=== PATIENT | female | born 1955 | race Caucasian/White ===

== ENCOUNTER 2016-07-12 15:16 | Emergency (ER) | payer OTHER ==
[2016-07-12 17:17] VITALS: TEMP 97.7
[2016-07-12] MEDS ORDERED: IPRATROPIUM-ALBUTEROL 3 ML NEB INHALATION STA (17:54)
--- NOTE | 2016-07-12 17:59 | ED ---
URI HPI - General Chief Complaint: Upper Respiratory Infection Stated Complaint: congestion Time Seen by Provider: 07/12/16 17:46 Source: patient, RN notes reviewed Mode of arrival: ambulatory - History of Present Illness Initial Comments: Patient is a 61-year-old female with a past history of COPD presents emergency room for reevaluation of cough and congestion. Patient states been having sinus congestion for the past 2 weeks. Patient states she went to her primary care provider about 2 weeks ago and was placed on "sinus medication". Patient states the medication did not help her. Patient states over the past few days she's been coughing up green phlegm. Patient states she's been having cold sweats and hot flashes. Patient denies nausea or vomiting. Patient denies headache or dizziness. Patient states she's having throat pain from coughing. Patient denies ear pain. Patient denies chest pain or increased shortness of breath. Patient does state that she smokes one pack a day. - Related Data Home Medications Medication Instructions Recorded Confirmed ALPRAZolam 1 mg PO QID PRN 08/09/14 01/17/16 Aspirin 81 mg PO DAILY 08/09/14 01/17/16 Carvedilol 6.25 mg PO BID 08/09/14 01/17/16 Clobetasol Propionate [Temovate] 1 applic TOPICAL DIRECTED PRN 08/09/1401/16 Ergocalciferol [Vitamin D2 50,000 unit PO QMONTH 08/09/14 01/17/16 (DRISDOL)] Fluticasone Propionate [Flovent 1 applic INHALATION DIRECTED PRN 08/09/1402/24 Hfa 220MCG] Ipratropium/Albuterol Sulfate 1 applic INHALATION DIRECTED PRN 08/09/1401/16 [Combivent Respimat Inhaler] Levothyroxine Sodium [Synthroid] 88 mcg PO DAILY 08/09/14 01/17/16 Losartan Potassium 25 mg PO QAM 08/09/14 01/17/16 Omeprazole 20 mg PO DAILY 08/09/14 01/17/16 PARoxetine [Paxil] 20 mg PO DAILY 08/09/14 01/17/16 Simvastatin 20 mg PO DAILY 08/09/14 01/17/16 Spironolactone [Aldactone] 25 mg PO BID 08/09/14 01/17/16 hydrOXYzine PAMOATE [Vistaril] 100 mg PO TID 08/09/14 01/17/16 Previous Rx's Medication Instructions Recorded Hydrocortisone Cream 1 applic TOPICAL TID #1 tube 02/10/15 [Hydrocortisone 2.5% Cream] Levofloxacin [Levaquin] 500 mg PO DAILY #9 tab 04/28/15 Clindamycin HCl [Cleocin] 300 mg PO Q6H #40 cap 01/17/16 Azithromycin [Zithromax Z-pack] 250 mg PO DIRECTED #6 tab 07/12/16 predniSONE 40 mg PO DAILY #5 tab 07/12/16 Allergies Allergy/AdvReac Type Severity Reaction Status Date / Time elastic Allergy Rash/Hives Uncoded 07/12/16 17:17 Review of Systems ROS Statement: Those systems with pertinent positive or pertinent negative responses have been documented in the HPI. ROS Other: All systems not noted in ROS Statement are negative. Past Medical History Past Medical History: COPD, GERD/Reflux, Rheumatoid Arthritis (RA), Sleep Apnea/ CPAP/BIPAP, Thyroid Disorder Additional Past Medical History / Comment(s): SEE DR HALLMAN'S H&P History of Any Multi-Drug Resistant Organisms: None Reported Past Surgical History: AICD, Heart Catheterization, Pacemaker Additional Past Surgical History / Comment(s): defibilator Past Anesthesia/Blood Transfusion Reactions: No Reported Reaction Type of Cardiac Device: AICD Device Placement Date:: UNKNOWN Past Psychological History: Anxiety, Depression Smoking Status: Current every day smoker Past Alcohol Use History: None Reported Additional Past Alcohol Use History / Comment(s): RECOVERING ALCOHOLIC, NOTHING SINCE 1989 Past Drug Use History: None Reported General Exam - General Exam Comments Initial Comments: Sitting in exam room, no acute distress. General appearance: alert, in no apparent distress Head exam: Present: atraumatic, normocephalic, normal inspection Eye exam: Present: normal appearance ENT exam: Present: normal exam Neck exam: Present: normal inspection Respiratory exam: Present: wheezes (Inspiratory and expiratory wheezing). Absent: respiratory distress Cardiovascular Exam: Present: regular rate, normal rhythm, normal heart sounds GI/Abdominal exam: Present: soft, normal bowel sounds. Absent: distended, tenderness, guarding, rebound, rigid Extremities exam: Present: normal inspection Back exam: Present: normal inspection Neurological exam: Present: alert, oriented X3, CN II-XII intact, normal gait Psychiatric exam: Present: normal affect, normal mood Skin exam: Present: warm, dry, intact, normal color. Absent: rash Course Vital Signs 07/12/16 07/12/16 07/12/16 17:13 18:09 18:18 Temperature 97.7 F Pulse Rate 63 63 63 Respiratory 20 18 Rate Blood Pressure 112/56 O2 Sat by Pulse 94 L 93 L Oximetry 07/12/16 07/12/16 18:28 18:32 Temperature Pulse Rate 60 Respiratory Rate Blood Pressure O2 Sat by Pulse 96 Oximetry Medical Decision Making - Medical Decision Making Patient is a 61-year-old female presents to the emergency room for evaluation of sinus congestion and cough. Chest x-ray shows no acute findings. Patient states she feels better after DuoNeb treatment. Patient was offered further workup and declined. Will place patient on antibiotics and prednisone and have her follow-up with her primary care provider. Advised patient to return for worsening symptoms. Patient states she understands everything that was discussed with her. Patient discussed with Dr. Loco. - Radiology Data Radiology results: report reviewed, image reviewed Disposition Clinical Impression: Sinusitis Disposition: HOME SELF-CARE Condition: Good Instructions: COPD (Chronic Obstructive Pulmonary Disease) (ED), How to Stop Smoking (ED) Additional Instructions: Take medications as directed. Please follow-up with primary care provider in 24 -48 hours for reevaluation. If any new symptom arises, symptoms worsen or fever develops return to ER as soon as possible. Prescriptions: Azithromycin [Zithromax Z-pack] 250 mg PO DIRECTED #6 tab predniSONE 40 mg PO DAILY #5 tab Referrals: Aniya Salamanca MD [Primary Care Provider] - 1-2 days Time of Disposition: 18:33
[2016-07-12 18:10] VITALS: RESP 18
--- NOTE | 2016-07-12 18:16 | XR ---
EXAMINATION TYPE: XR chest 2V DATE OF EXAM: 07/12/2016 6:04 PM COMPARISON: 04/28/2015 HISTORY: Cough and congestion TECHNIQUE: Frontal and lateral views of the chest are obtained. FINDINGS: Heart and mediastinum are normal. There is coarsening of interstitial markings in the lowe r lung silveira. There are no hilar masses. There is a left axillary pacemaker with the lead tips in th e right ventricle. There is no pleural effusion. IMPRESSION: Mild pulmonary fibrosis. No acute lung disease. No change.
[2016-07-12 18:55] VITALS: BP 108/67; PULSE 64
== END 2016-07-12 18:53 | disposition home or self-care (01) ==
LOC: EC 15:16
DX: J32.9 Chronic sinusitis, unspecified (principal); J44.9 Chronic obstructive pulmonary disease, unspecified; E07.9 Disorder of thyroid, unspecified; M06.9 Rheumatoid arthritis, unspecified; K21.9 Gastro-esophageal reflux disease without esophagitis; G47.30 Sleep apnea, unspecified; Z99.89 Dependence on other enabling machines and devices; F41.9 Anxiety disorder, unspecified; F32.9 Major depressive disorder, single episode, unspecified; Z79.82 Long term (current) use of aspirin; Z79.51 Long term (current) use of inhaled steroids; Z79.899 Other long term (current) drug therapy
CPT/HCPCS: 71020; 94640; 99283

== ENCOUNTER 2016-08-30 16:52 | Emergency (ER) | payer OTHER ==
[2016-08-30] MEDS ORDERED: methylPREDNISolone SOD SUCCI 125 MG/2 ML VIAL IM STA (17:37)
[2016-08-30] MEDS ORDERED: IPRATROPIUM-ALBUTEROL 3 ML NEB INHALATION STA (17:37)
--- NOTE | 2016-08-30 17:41 | ED ---
General Adult HPI - General Chief complaint: Upper Respiratory Infection Stated complaint: URI Time Seen by Provider: 08/30/16 17:31 Source: patient, RN notes reviewed Mode of arrival: ambulatory Limitations: no limitations - History of Present Illness Initial comments: Patient 61-year-old female with significant past medical history for COPD, who presents emergency room today with chief complaint of cough congestion over the last 10 days. Patient states she positive sputum production it's been green in color. Does admit that she was seen and treated with Z-Abdirashid previously. She states no improvement. Patient does admit that she's been using breathing treatments at home with some relief the symptoms but then increases shortly thereafter. Patient denies any other complaints or associated symptoms currently. Patient denies any recent fever, chills, shortness of breath, chest pain, back pain, abdominal pain, nausea or vomiting, numbness or tingling, dysuria or hematuria, constipation or diarrhea, headaches or visual changes, or any other complaints. - Related Data Home Medications Medication Instructions Recorded Confirmed ALPRAZolam 1 mg PO QID PRN 08/09/14 01/17/16 Aspirin 81 mg PO DAILY 08/09/14 01/17/16 Carvedilol 6.25 mg PO BID 08/09/14 01/17/16 Clobetasol Propionate [Temovate] 1 applic TOPICAL DIRECTED PRN 08/09/1401/16 Ergocalciferol [Vitamin D2 50,000 unit PO QMONTH 08/09/14 01/17/16 (DRISDOL)] Fluticasone Propionate [Flovent 1 applic INHALATION DIRECTED PRN 08/09/1402/24 Hfa 220MCG] Ipratropium/Albuterol Sulfate 1 applic INHALATION DIRECTED PRN 08/09/1401/16 [Combivent Respimat Inhaler] Levothyroxine Sodium [Synthroid] 88 mcg PO DAILY 08/09/14 01/17/16 Losartan Potassium 25 mg PO QAM 08/09/14 01/17/16 Omeprazole 20 mg PO DAILY 08/09/14 01/17/16 PARoxetine [Paxil] 20 mg PO DAILY 08/09/14 01/17/16 Simvastatin 20 mg PO DAILY 08/09/14 01/17/16 Spironolactone [Aldactone] 25 mg PO BID 08/09/14 01/17/16 hydrOXYzine PAMOATE [Vistaril] 100 mg PO TID 08/09/14 01/17/16 Previous Rx's Medication Instructions Recorded Hydrocortisone Cream 1 applic TOPICAL TID #1 tube 02/10/15 [Hydrocortisone 2.5% Cream] Levofloxacin [Levaquin] 500 mg PO DAILY #9 tab 04/28/15 Clindamycin HCl [Cleocin] 300 mg PO Q6H #40 cap 01/17/16 Azithromycin [Zithromax Z-pack] 250 mg PO DIRECTED #6 tab 07/12/16 predniSONE 40 mg PO DAILY #5 tab 07/12/16 Levofloxacin [Levaquin] 500 mg PO DAILY 7 Days 08/30/16 predniSONE 60 mg PO DAILY 5 Days 08/30/16 Allergies Allergy/AdvReac Type Severity Reaction Status Date / Time elastic Allergy Rash/Hives Uncoded 08/30/16 17:22 Review of Systems ROS Statement: Those systems with pertinent positive or pertinent negative responses have been documented in the HPI. ROS Other: All systems not noted in ROS Statement are negative. Past Medical History Past Medical History: COPD, GERD/Reflux, Rheumatoid Arthritis (RA), Sleep Apnea/ CPAP/BIPAP, Thyroid Disorder Additional Past Medical History / Comment(s): SEE DR HALLMAN'S H&P History of Any Multi-Drug Resistant Organisms: None Reported Past Surgical History: AICD, Heart Catheterization, Pacemaker Additional Past Surgical History / Comment(s): defibilator Past Anesthesia/Blood Transfusion Reactions: No Reported Reaction Type of Cardiac Device: AICD Device Placement Date:: UNKNOWN Past Psychological History: Anxiety, Depression Smoking Status: Current every day smoker Past Alcohol Use History: None Reported Additional Past Alcohol Use History / Comment(s): RECOVERING ALCOHOLIC, NOTHING SINCE 1989 Past Drug Use History: None Reported General Exam - General Exam Comments Initial Comments: General: The patient is awake and alert, in no distress, and does not appear acutely ill. Eye: Pupils are equal, round and reactive to light, extra-ocular movements are intact. No nystagmus. There is normal conjunctiva bilaterally. No signs of icterus. Ears, nose, mouth and throat: There are moist mucous membranes and no oral lesions. Neck: The neck is supple, there is no tenderness or JVD. Cardiovascular: There is a regular rate and rhythm. No murmur, rub or gallop is appreciated. Respiratory: Bilateral expiratory wheeze. Diminished breath sounds. respirations are non-labored, breath sounds are equal. No stridor, rales, or rhonchi. Musculoskeletal: Normal ROM, no tenderness. Strength 5/5. Sensation intact. Pulses equal bilaterally 2+. Neurological: A&O x 3. CN II-XII intact, There are no obvious motor or sensory deficits. Coordination appears grossly intact. Speech is normal. Skin: Skin is warm and dry and no rashes or lesions are noted. Psychiatric: Cooperative, appropriate mood & affect, normal judgment. Limitations: no limitations Course Vital Signs 08/30/16 08/30/16 08/30/16 17:19 17:43 17:50 Temperature 97.2 F L Pulse Rate 65 65 68 Respiratory 20 Rate Blood Pressure 116/76 O2 Sat by Pulse 94 L Oximetry Medical Decision Making - Medical Decision Making Case discussed in detail with attending physician Dr. Loco. Patient reexamined at this time shows no signs of distress. Does not that she feels better after breathing treatments. Lung sounds are clear bilaterally. X-ray reviewed shows no sign of pneumonia. Show possible CHF. Patient even dose Lasix to 40 mg in the emergency room. 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 Advised return to emergency room if any symptoms increase or worsen or for any other concerns. Patient states understanding and is in agreement. Disposition Clinical Impression: Acute bronchitis Disposition: HOME SELF-CARE Condition: Good Instructions: Upper Respiratory Infection (ED) Additional Instructions: Please use medication as discussed. Please follow-up with family doctor in the next 2 days of symptoms have not improved. Please return to emergency room if the symptoms increase or worsen or for any other concerns. Prescriptions: Levofloxacin [Levaquin] 500 mg PO DAILY 7 Days predniSONE 60 mg PO DAILY 5 Days Time of Disposition: 18:30
--- NOTE | 2016-08-30 18:17 | XR ---
EXAMINATION TYPE: XR chest 2V DATE OF EXAM: 08/30/2016 6:12 PM COMPARISON: Chest x-ray July 12, 2016. HISTORY: Productive cough and congestion for 10 days. TECHNIQUE: Frontal and lateral views of the chest are obtained. FINDINGS: The cardiac silhouette size is mildly enlarged with multilead pacemaker/AICD redemonstrate d. There is mild central vascular congestion. Tiny bilateral pleural effusions are seen with blunting of posterior costophrenic angles. No significant change from prior study. The osseous structures are demineralized. IMPRESSION: Consider CHF exacerbation as there is cardiomegaly with tiny bilateral pleural effusions and mild central vascular congestion felt present. Clinical correlation advised.
[2016-08-30] MEDS ORDERED: FUROSEMIDE 40 MG TAB PO STA (18:27)
[2016-08-30 18:58] VITALS: BP 115/71; PULSE 82; RESP 18; TEMP 97.8
== END 2016-08-30 18:58 | disposition home or self-care (01) ==
LOC: EC 16:52
DX: J44.0 Chronic obstructive pulmonary disease with (acute) lower respiratory infection (principal); K21.9 Gastro-esophageal reflux disease without esophagitis; J90 Pleural effusion, not elsewhere classified; I51.7 Cardiomegaly; G47.30 Sleep apnea, unspecified; E07.9 Disorder of thyroid, unspecified; F41.9 Anxiety disorder, unspecified; F32.9 Major depressive disorder, single episode, unspecified; F17.200 Nicotine dependence, unspecified, uncomplicated; Z95.810 Presence of automatic (implantable) cardiac defibrillator; Z79.52 Long term (current) use of systemic steroids; Z91.048 Other nonmedicinal substance allergy status; Z79.82 Long term (current) use of aspirin; Z79.899 Other long term (current) drug therapy
CPT/HCPCS: 94640; 71020; 99283; 96372; J2930

== ENCOUNTER 2016-09-29 12:59 | Day surgery (SDC) | payer OTHER ==
[2016-09-28 14:18] VITALS: BMI 39.4
[~2016-09-29 12:59] MED LIST: SODIUM CHLORIDE 0.9% 1,000 ML IV SCH
[2016-09-29 13:34] VITALS: TEMP 98.9
[2016-09-29 14:06] LABS: Anion Gap 9 mmol/L; Blood Urea Nitrogen 12 mg/dL (7-17); Calcium 9.1 mg/dL (8.4-10.2); Carbon Dioxide 31 mmol/L (22-30); Chloride 99 mmol/L (98-107); Glucose 99 mg/dL (74-99); Non-African American GFR(MDRD) 57 (>60 ml/min/1.73 sqM); Potassium 4.4 mmol/L (3.5-5.1); Sodium 139 mmol/L (137-145)
[2016-09-29] MEDS ORDERED: PROPOFOL 10 MG/ML 20 ML VIAL IV ONE (14:43)
[2016-09-29 16:47] VITALS: RESP 16
[2016-09-29 16:49] VITALS: BP 110/64; PULSE 62
--- NOTE | 2016-09-29 20:34 | CE ---
DATE OF SERVICE: 09/29/2016 Haylie Borrero is a 61-year-old female with nonischemic cardiomyopathy with severe heart failure, status post biventricular ICD implantation. She has a [employer] device [employer] CRTD [id number]. P-wave of 5.4 mV, pacing impedance 682 ohms. Pacing threshold 1.1 v at 0.8 ms. The R waves were 18 mV, pacing impedance 993 ohms, pacing threshold 0.5 v at 0.5 ms. The pacing threshold in the LV was 0.5 v at 0.5 ms, pacing impedance of 567 ohms, shock impedance 100 ohms. Shock and T-wave protocol was used to induce ventricular fibrillation. This was adequately and appropriately detected at least sensitivity and successfully internally defibrillated with a 17 joule shock. Last time for DFT was 21 joules. The charge time was 3.1 seconds. Shock impedance 79 ohms. This was with initial polarity. The device was then reprogrammed to the MADIT-RIT programming. The LV offset was reprogrammed to -40 ms. AV delay was maintained at 120 ms. First cardioversion at 21 joules, first defibrillation at 31 joules. Appropriate antitachycardia pacing using cardioversion and defibrillation were programmed. RESULT: 1. Successful DFT at or below 17 joules. 2. Biventricular ICD interrogated and reprogrammed.
== END 2016-09-29 16:30 | disposition home or self-care (01) ==
LOC: CATHEP 12:59
PROVIDERS: ATTEND Internal Medicine Clinical Cardiac Electrophysiology
DX: I42.0 Dilated cardiomyopathy (principal); I44.7 Left bundle-branch block, unspecified; Z45.02 Encounter for adjustment and management of automatic implantable cardiac defibrillator; I50.22 Chronic systolic (congestive) heart failure; I10 Essential (primary) hypertension; G47.33 Obstructive sleep apnea (adult) (pediatric); F17.210 Nicotine dependence, cigarettes, uncomplicated; E78.5 Hyperlipidemia, unspecified; E07.9 Disorder of thyroid, unspecified; K21.9 Gastro-esophageal reflux disease without esophagitis; F41.9 Anxiety disorder, unspecified; F32.9 Major depressive disorder, single episode, unspecified; Z79.82 Long term (current) use of aspirin; Z79.51 Long term (current) use of inhaled steroids; Z79.899 Other long term (current) drug therapy
CPT/HCPCS: 93642; 80048; J2704

== ENCOUNTER 2016-11-23 10:08 | Emergency (ER) | payer OTHER ==
[2016-11-23 10:21] VITALS: PULSE 60
--- NOTE | 2016-11-23 10:46 | ED ---
Upper Extremity HPI - General Chief Complaint: Extremity Injury, Upper Stated Complaint: finger pain Time Seen by Provider: 11/23/16 10:28 Source: patient, RN notes reviewed Mode of arrival: ambulatory - History of Present Illness Initial Comments: 61-year-old female presents to the emergency department with a chief complaint of right thumb pain. Patient states she got her nail gun and she felt a little pus pocket afterwards. Patient states that he cut it with a razor yesterday and drained however she still having some pain and swelling to the area. Patient states that she was concerned so she thought that they should be evaluated. There is been no other symptoms with this. She does have full range of motion. There is been no fever or chills. She states it is stabbing type pain that is constant so she was concerned.Patient denies any recent fever , chills, shortness of breath, chest pain, back pain, abdominal pain, nausea vomiting, numbness or tingling, dysuria or hematuria, constipation or diarrhea, headaches or visual changes, or any other current symptoms. - Related Data Home Medications Medication Instructions Recorded Confirmed ALPRAZolam 1 mg PO QID PRN 08/09/14 09/28/16 Carvedilol 6.25 mg PO BID 08/09/14 09/28/16 Losartan Potassium 25 mg PO QAM 08/09/14 09/28/16 Omeprazole 20 mg PO BID PRN 08/09/14 09/29/16 Simvastatin 20 mg PO HS 08/09/14 09/29/16 Spironolactone [Aldactone] 25 mg PO BID 08/09/14 09/28/16 hydrOXYzine PAMOATE [Vistaril] 100 mg PO TID PRN 08/09/14 09/29/16 Aspirin 325 mg PO DAILY 09/01/16 09/28/16 Levothyroxine Sodium [Synthroid] 100 mcg PO DAILY 09/01/16 09/28/16 Fluticasone/Salmeterol [Advair 1 inhalation PO BID 09/28/16 09/28/16 250-50 Diskus] Furosemide [Lasix] 40 mg PO DAILY 09/28/16 09/28/16 Tiotropium [place] [Spiriva] 1 cap INHALATION DAILY 09/28/16 09/28/16 traMADol HCL [Ultram] 50 mg PO Q8HR PRN 09/28/16 09/29/16 Previous Rx's Medication Instructions Recorded Cephalexin [Keflex] 500 mg PO Q6HR #40 cap 11/23/16 Allergies Allergy/AdvReac Type Severity Reaction Status Date / Time elastic Allergy Rash/Hives Uncoded 11/23/16 10:21 Review of Systems ROS Statement: Those systems with pertinent positive or pertinent negative responses have been documented in the HPI. ROS Other: All systems not noted in ROS Statement are negative. Past Medical History Past Medical History: COPD, GERD/Reflux, Rheumatoid Arthritis (RA), Sleep Apnea/ CPAP/BIPAP, Thyroid Disorder Additional Past Medical History / Comment(s): USES C-PAP MACHINE, STATES HX OF STOMACH ULCERS, SEE DR HALLMAN'S H&P History of Any Multi-Drug Resistant Organisms: None Reported Past Surgical History: AICD, Heart Catheterization, Pacemaker Additional Past Surgical History / Comment(s): defibilator Past Anesthesia/Blood Transfusion Reactions: No Reported Reaction, Motion Sickness Type of Cardiac Device: AICD Device Placement Date:: UNKNOWN Past Psychological History: Anxiety, Depression Smoking Status: Current every day smoker Past Alcohol Use History: None Reported Additional Past Alcohol Use History / Comment(s): STARTED SMOKING AGE 15. , SMOKES < 1PPD. RECOVERING ALCOHOLIC, NOTHING SINCE 1989 Past Drug Use History: None Reported - Past Family History Mother Family Medical History: No Reported History General Exam - General Exam Comments Initial Comments: General: The patient is awake and alert, in no distress, and does not appear acutely ill. Neck: The neck is supple, there is no tenderness. Cardiovascular: There is a regular rate and rhythm. No murmur, rub or gallop is appreciated. Respiratory: Lungs are clear to auscultation, respirations are non-labored, breath sounds are equal. No wheezes, stridor, rales, or rhonchi. Musculoskeletal: Sensation intact with 2+ pulses. Right upper extremity. Full range motion of the right hand and the right thumb with an area of some swelling around the base of the thumb. There is appear to be a small laceration that was self inflicted. No sign of purulent drainage. Neurological: CN II-XII intact, There are no obvious motor or sensory deficits. Coordination appears grossly intact. Speech is normal. Skin: Skin is warm and dry and no rashes or lesions are noted. Psychiatric: Normal mood and affect. Course Vital Signs 11/23/16 10:17 Temperature 97.1 F L Pulse Rate 60 Respiratory 18 Rate Blood Pressure 92/53 O2 Sat by Pulse 96 Oximetry Medical Decision Making - Medical Decision Making 61 yo female presents to the Er with cc of paronchyia. At this time patient did undergo drainage. There is good be associated cellulitis. We will start patient on Keflex. We did discuss follow-up and return parameters. We discussed all the patient's questions. She states she understood and is given the plan. She will be discharged. Disposition Clinical Impression: Paronychia of right thumb, Cellulitis of right thumb Disposition: HOME SELF-CARE Condition: Stable Instructions: Paronychia (ED) Additional Instructions: Please use medication as discussed. Please follow up with family doctor if symptoms have not improved over the next two days. Please return to the emergency room if your symptoms increase or worsen or for any other concerns. Prescriptions: Cephalexin [Keflex] 500 mg PO Q6HR #40 cap Referrals: Aniya Salamanca MD [Primary Care Provider] - 1-2 days Time of Disposition: 10:44
[2016-11-23 11:02] VITALS: BP 105/61; RESP 16; TEMP 97.4
== END 2016-11-23 11:13 | disposition home or self-care (01) ==
LOC: EC 10:08
DX: L03.011 Cellulitis of right finger (principal); J44.9 Chronic obstructive pulmonary disease, unspecified; K21.9 Gastro-esophageal reflux disease without esophagitis; E07.9 Disorder of thyroid, unspecified; F32.9 Major depressive disorder, single episode, unspecified; F41.9 Anxiety disorder, unspecified; F17.200 Nicotine dependence, unspecified, uncomplicated; Z79.82 Long term (current) use of aspirin; Z79.51 Long term (current) use of inhaled steroids; Z79.899 Other long term (current) drug therapy; Z91.09 Other allergy status, other than to drugs and biological substances
CPT/HCPCS: 99283

== ENCOUNTER 2016-11-29 18:59 | Emergency (ER) | payer OTHER ==
[2016-11-29 19:12] VITALS: BP 113/59; PULSE 68; RESP 18; TEMP 96.4
--- NOTE | 2016-11-29 19:51 | ED ---
Skin/Abscess/FB HPI - General Chief complaint: Skin/Abscess/Foreign Body Stated complaint: finger infection Time Seen by Provider: 11/29/16 19:25 Source: patient, RN notes reviewed Mode of arrival: EMS Limitations: no limitations - History of Present Illness Initial comments: Patient is a 61-year-old female presents to the emergency room for evaluation of right thumb infection. Patient states she was here about 6 days ago for thumb infection. Patient states that her took a razor and drained her finger for her. Patient states she came here she was placed on Keflex. Patient states she feels like the infection is not subsiding. Patient states she feels like it still needs to be drained still. Patient states she's been taking her antibiotics as directed. Patient denies numbness or tingling in her finger. Patient denies any drainage from the area. Patient denies any increase in swelling. Patient denies fevers or chills. - Related Data Home Medications Medication Instructions Recorded Confirmed ALPRAZolam 1 mg PO QID PRN 08/09/14 11/23/16 Carvedilol 6.25 mg PO BID 08/09/14 11/23/16 Losartan Potassium 25 mg PO QAM 08/09/14 11/23/16 Omeprazole 20 mg PO BID PRN 08/09/14 11/23/16 Simvastatin 20 mg PO HS 08/09/14 11/23/16 Spironolactone [Aldactone] 25 mg PO BID 08/09/14 11/23/16 hydrOXYzine PAMOATE [Vistaril] 100 mg PO TID PRN 08/09/14 11/23/16 Aspirin 325 mg PO DAILY 09/01/16 11/23/16 Levothyroxine Sodium [Synthroid] 100 mcg PO DAILY 09/01/16 11/23/16 Fluticasone/Salmeterol [Advair 1 inhalation PO RT-BID 09/28/16 11/23/16 250-50 Diskus] Furosemide [Lasix] 40 mg PO DAILY 09/28/16 11/23/16 Tiotropium [place] [Spiriva] 1 cap INHALATION RT-DAILY 09/28/16 11/23/16 traMADol HCL [Ultram] 50 mg PO Q8HR PRN 09/28/16 11/23/16 Previous Rx's Medication Instructions Recorded Cephalexin [Keflex] 500 mg PO Q6HR #40 cap 11/23/16 Cephalexin [Keflex] 500 mg PO Q6HR 5 Days 11/29/16 Allergies Allergy/AdvReac Type Severity Reaction Status Date / Time elastic Allergy Rash/Hives Uncoded 11/29/16 19:12 Review of Systems ROS Statement: Those systems with pertinent positive or pertinent negative responses have been documented in the HPI. ROS Other: All systems not noted in ROS Statement are negative. Past Medical History Past Medical History: COPD, GERD/Reflux, Rheumatoid Arthritis (RA), Sleep Apnea/ CPAP/BIPAP, Thyroid Disorder Additional Past Medical History / Comment(s): USES C-PAP MACHINE, STATES HX OF STOMACH ULCERS, SEE DR HALLMAN'S H&P History of Any Multi-Drug Resistant Organisms: None Reported Past Surgical History: AICD, Heart Catheterization, Pacemaker Additional Past Surgical History / Comment(s): defibilator Past Anesthesia/Blood Transfusion Reactions: No Reported Reaction, Motion Sickness Type of Cardiac Device: AICD Device Placement Date:: UNKNOWN Past Psychological History: Anxiety, Depression Smoking Status: Current every day smoker Past Alcohol Use History: None Reported Additional Past Alcohol Use History / Comment(s): STARTED SMOKING AGE 15. , SMOKES < 1PPD. RECOVERING ALCOHOLIC, NOTHING SINCE 1989 Past Drug Use History: None Reported - Past Family History Mother Family Medical History: No Reported History General Exam - General Exam Comments Initial Comments: sitting in exam room, no acute distress. Limitations: no limitations General appearance: alert, in no apparent distress Head exam: Present: atraumatic, normocephalic, normal inspection Eye exam: Present: normal appearance ENT exam: Present: normal exam Neck exam: Present: normal inspection Respiratory exam: Absent: respiratory distress Right Hand Wrist exam: Present: full ROM, tenderness (erythema around the nail bed site. No fluctuance noted no drainage noted.) Vascular: Present: normal capillary refill (capillary refill less than 2 seconds ), radial pulse (2+), ulnar pulse (2+) Back exam: Present: normal inspection Neurological exam: Present: alert, oriented X3, CN II-XII intact, normal gait Psychiatric exam: Present: normal affect, normal mood Skin exam: Present: warm, dry, intact, normal color. Absent: rash Course Vital Signs 11/29/16 19:09 Temperature 96.4 F L Pulse Rate 68 Respiratory 18 Rate Blood Pressure 113/59 O2 Sat by Pulse 99 Oximetry Procedures - Nerve Block Consent Obtained: verbal consent Local Anesthetic Used: Lidocaine 1% Amount of anesthesia used: 4 Side: right Nerve Blocks: digital (thumb) Procedure Successful: Yes Complications: none Patient Tolerated Procedure: well, no complications Medical Decision Making - Medical Decision Making Patient is a 61-year-old female since he went to her for evaluation of right thumb swelling and pain. No significant swelling or fluctuant noticed. Patient 's right thumb was digitally blocked. 11-blade was used to lift up the nailbed. No pus or drainage noted. Will extend patient's Keflex to another 5 days. Advised patient to keep area clean and to wash it with antibacterial soap and water daily. Patient states she understands everything that was discussed with her. Return parameters discussed. Case discussed with Dr. Loco , who also evaluated patient. Disposition Clinical Impression: Cellulitis of right thumb Disposition: HOME SELF-CARE Condition: Good Instructions: Cellulitis (ED) Additional Instructions: Continue taking Keflex as directed. Keep area clean with antibacterial soap and water. Please follow up with primary care provider in 1-2 days. If any new symptom arises or symptoms worsen, return to ER as soon as possible. Prescriptions: Cephalexin [Keflex] 500 mg PO Q6HR 5 Days Referrals: Aniya Salamanca MD [Primary Care Provider] - 1-2 days Time of Disposition: 20:12
== END 2016-11-29 20:22 | disposition home or self-care (01) ==
LOC: EC 18:59
DX: L03.011 Cellulitis of right finger (principal); K21.9 Gastro-esophageal reflux disease without esophagitis; E07.9 Disorder of thyroid, unspecified; J44.9 Chronic obstructive pulmonary disease, unspecified; M06.9 Rheumatoid arthritis, unspecified; F17.200 Nicotine dependence, unspecified, uncomplicated; Z91.048 Other nonmedicinal substance allergy status; Z79.82 Long term (current) use of aspirin; Z79.51 Long term (current) use of inhaled steroids; Z79.899 Other long term (current) drug therapy
CPT/HCPCS: 64450; 99283

== ENCOUNTER 2017-10-23 18:07 | Emergency (ER) | payer OTHER ==
[2017-10-23 18:20] VITALS: RESP 18; TEMP 98.6
[2017-10-23] MEDS ORDERED: Acetaminophen-Codeine 300-30mg TAB PO STA (18:38)
--- NOTE | 2017-10-23 18:42 | ED ---
General Adult HPI - General Chief complaint: Recheck/Abnormal Lab/Rx Stated complaint: pacemaker check Time Seen by Provider: 10/23/17 18:23 Source: patient Mode of arrival: ambulatory Limitations: no limitations - History of Present Illness Initial comments: Patient is a 62-year-old female presenting to the emergency department for evaluation. She states that she was at her doctor's office, when she bumped into an object causing her left elbow to strike her left breast. She says that since that time, she has been having pain in the breast which is worse with movement. She denies any shortness of breath but states that she is concerned about the AICD becoming dislodged and therefore wanted to be evaluated. She denies any palpitations as well. - Related Data Home Medications Medication Instructions Recorded Confirmed ALPRAZolam 1 mg PO QID PRN 08/09/14 11/23/16 Carvedilol 6.25 mg PO BID 08/09/14 11/23/16 Losartan Potassium 25 mg PO QAM 08/09/14 11/23/16 Omeprazole 20 mg PO BID PRN 08/09/14 11/23/16 Simvastatin 20 mg PO HS 08/09/14 11/23/16 Spironolactone [Aldactone] 25 mg PO BID 08/09/14 11/23/16 hydrOXYzine PAMOATE [Vistaril] 100 mg PO TID PRN 08/09/14 11/23/16 Aspirin 325 mg PO DAILY 09/01/16 11/23/16 Levothyroxine Sodium [Synthroid] 100 mcg PO DAILY 09/01/16 11/23/16 Fluticasone/Salmeterol [Advair 1 inhalation PO RT-BID 09/28/16 11/23/16 250-50 Diskus] Furosemide [Lasix] 40 mg PO DAILY 09/28/16 11/23/16 Tiotropium [place] [Spiriva] 1 cap INHALATION RT-DAILY 09/28/16 11/23/16 traMADol HCL [Ultram] 50 mg PO Q8HR PRN 09/28/16 11/23/16 Previous Rx's Medication Instructions Recorded Cephalexin [Keflex] 500 mg PO Q6HR #40 cap 11/23/16 Cephalexin [Keflex] 500 mg PO Q6HR 5 Days cap 11/29/16 Allergies Allergy/AdvReac Type Severity Reaction Status Date / Time elastic Allergy Rash/Hives Uncoded 10/23/17 18:20 Review of Systems ROS Statement: Those systems with pertinent positive or pertinent negative responses have been documented in the HPI. Constitutional: Negative for chills, fatigue and fever. HENT: Negative for congestion. Respiratory: Negative for chest tightness, shortness of breath and wheezing. Cardiovascular: Negative for chest pain and palpitations. Gastrointestinal: Negative for abdominal pain. Negative for abdominal distention , diarrhea, nausea and vomiting. Genitourinary: Negative for dysuria. Musculoskeletal: Negative for back pain, neck pain and neck stiffness. Positive for left breast pain Skin: Negative for color change. Neurological: Negative for dizziness, speech difficulty, weakness and light- headedness. Psychiatric/Behavioral: Negative for agitation and confusion. The patient is not nervous/anxious. ROS Other: All systems not noted in ROS Statement are negative. Past Medical History Past Medical History: COPD, GERD/Reflux, Rheumatoid Arthritis (RA), Sleep Apnea/ CPAP/BIPAP, Thyroid Disorder Additional Past Medical History / Comment(s): USES C-PAP MACHINE, STATES HX OF STOMACH ULCERS, SEE DR HALLMAN'S H&P History of Any Multi-Drug Resistant Organisms: None Reported Past Surgical History: AICD, Heart Catheterization, Pacemaker Additional Past Surgical History / Comment(s): defibilator Past Anesthesia/Blood Transfusion Reactions: No Reported Reaction, Motion Sickness Type of Cardiac Device: AICD Device Placement Date:: UNKNOWN Past Psychological History: Anxiety, Depression Smoking Status: Current every day smoker Past Alcohol Use History: None Reported Past Drug Use History: None Reported - Past Family History Mother Family Medical History: No Reported History General Exam - General Exam Comments Initial Comments: Physical Exam Constitutional: Pt is oriented to person, place, and time. Pt appears well- developed and well-nourished. No distress. HENT: Head: Normocephalic and atraumatic. Eyes: EOM are normal. Neck: Normal range of motion. Neck supple. Cardiovascular: Normal rate, regular rhythm, S1 normal, S2 normal and normal heart sounds. Exam reveals no gallop and no friction rub. No murmur heard. Pulmonary/Chest: Effort normal and breath sounds normal. No tachypnea and no bradypnea. No respiratory distress. No wheezes or rales noted. Abdominal: Soft. Bowel sounds are normal. Pt exhibits no shifting dullness, no distension, no pulsatile liver, no fluid wave, no abdominal bruit and no ascites. There is no tenderness. There is no rigidity, no rebound, no guarding, no tenderness at McBurney's point and negative Leggett's sign. Musculoskeletal: Normal range of motion. Mild tenderness on the left lateral aspect of the chest at ribs 10 through 12. AICD site noted to be normal with incision well-healed Neurological: Pt is alert and oriented to person, place, and time. No cranial nerve deficit. Skin: Skin is warm and dry. No rash noted. Pt is not diaphoretic. No erythema. No pallor. Psychiatric: Pt has a normal mood and affect. Pt behavior is normal. Thought content normal. Limitations: no limitations Course Vital Signs 10/23/17 18:17 Temperature 98.6 F Pulse Rate 65 Respiratory 18 Rate Blood Pressure 122/58 O2 Sat by Pulse 96 Oximetry EKG Findings - EKG Comments: EKG Findings:: EKG shows atrial sensed ventricularly paced rhythm with a rate of 58 bpm. OK interval 90, QRS duration 136, QTC 494 Medical Decision Making - Medical Decision Making EKG showed atrial sensed, ventricular paced rhythm with no significant abnormal findings. Also, based on physical exam, it is felt that the symptoms the patient is experiencing is from a musculoskeletal strain as the pain is much lower and laterally compared to where the AICD is place. Chest x-ray was read as potential dislodgment of the AICD. However, after discussion with radiologist, this is based on chest x-ray on 2012 and not the latest one performed August 2016. Therefore is felt that the patient is safe to be discharged and should follow up with cardiology or return to emergency department if she felt there is more concerning symptoms. The patient and family member are agreeable to plan. Disposition Clinical Impression: Rib pain on left side Disposition: HOME SELF-CARE Condition: Good Instructions: Costochondritis (ED) Referrals: Aniya Salamanca MD [Primary Care Provider] - 1-2 days Time of Disposition: 19:36
--- NOTE | 2017-10-23 19:06 | XR ---
EXAMINATION TYPE: XR chest 2V DATE OF EXAM: 10/23/2017 COMPARISON: Prior chest x-ray 08/30/2016 and chest x-ray 10/07/2012 HISTORY: Left-sided chest pain, history of trauma TECHNIQUE: Frontal and lateral views of the chest are obtained. FINDINGS: Defibrillator leads are stable, twisted appearance is noted of the leads proximally. No ev ident pneumothorax or pleural effusion. Cardiac mediastinal silhouette, pulmonary vascularity and hil a are stable. No evident airspace disease. Prominent lung volumes suggests possible underlying COPD. Some minimal strand-like densities at the lung bases may reflect scarring, atelectasis. IMPRESSION: Findings are similar to prior exam. Correlate for COPD. Correlate for possible twisting of the generator in the subcutaneous pocket compared to previous exam 10/07/2012
[2017-10-23 19:56] VITALS: BP 120/66; PULSE 60
== END 2017-10-23 20:00 | disposition home or self-care (01) ==
LOC: EC 18:07
DX: R07.81 Pleurodynia (principal); J44.9 Chronic obstructive pulmonary disease, unspecified; E07.9 Disorder of thyroid, unspecified; F17.200 Nicotine dependence, unspecified, uncomplicated; G47.30 Sleep apnea, unspecified; Z95.0 Presence of cardiac pacemaker; Z95.818 Presence of other cardiac implants and grafts; Z79.82 Long term (current) use of aspirin; Z79.51 Long term (current) use of inhaled steroids; Z79.899 Other long term (current) drug therapy; Z91.048 Other nonmedicinal substance allergy status
CPT/HCPCS: 71046; 93005; 99284

== ENCOUNTER 2017-11-18 18:38 | Emergency (ER) | payer OTHER ==
[2017-11-18 18:45] VITALS: BP 131/60; PULSE 67; RESP 20; TEMP 98.1
--- NOTE | 2017-11-18 20:16 | ED ---
General Adult HPI - General Chief complaint: Burn/Smoke Inhalation Stated complaint: LEFT HAND BURN Time Seen by Provider: 11/18/17 18:57 Source: patient, RN notes reviewed Mode of arrival: ambulatory Limitations: no limitations - History of Present Illness Initial comments: 62-year-old female presents to the emergency department for a chief complaint of left hand burn 2 hours ago. Patient burned her hand with boiling water while making tea. Patient states she has kept ice on it. She states it is painful to touch. Patient states she feels like it is blistering. Patient denies matt to the dorsal aspect of the hand. Patient denies matt anywhere else. Patient had no other injuries. Patient has no other complaints at this time including shortness of breath, chest pain, abdominal pain, nausea or vomiting, headache, or visual changes. - Related Data Home Medications Medication Instructions Recorded Confirmed ALPRAZolam 1 mg PO QID PRN 08/09/14 11/23/16 Carvedilol 6.25 mg PO BID 08/09/14 11/23/16 Losartan Potassium 25 mg PO QAM 08/09/14 11/23/16 Omeprazole 20 mg PO BID PRN 08/09/14 11/23/16 Simvastatin 20 mg PO HS 08/09/14 11/23/16 Spironolactone [Aldactone] 25 mg PO BID 08/09/14 11/23/16 hydrOXYzine PAMOATE [Vistaril] 100 mg PO TID PRN 08/09/14 11/23/16 Aspirin 325 mg PO DAILY 09/01/16 11/23/16 Levothyroxine Sodium [Synthroid] 100 mcg PO DAILY 09/01/16 11/23/16 Fluticasone/Salmeterol [Advair 1 inhalation PO RT-BID 09/28/16 11/23/16 250-50 Diskus] Furosemide [Lasix] 40 mg PO DAILY 09/28/16 11/23/16 Tiotropium [place] [Spiriva] 1 cap INHALATION RT-DAILY 09/28/16 11/23/16 traMADol HCL [Ultram] 50 mg PO Q8HR PRN 09/28/16 11/23/16 Previous Rx's Medication Instructions Recorded Cephalexin [Keflex] 500 mg PO Q6HR #40 cap 11/23/16 Cephalexin [Keflex] 500 mg PO Q6HR 5 Days cap 11/29/16 Bacitracin Oint 1 applic TOPICAL DAILY #1 bottle 11/18/17 SILVER sulfADIAZINE CREAM 1 applic TOPICAL DAILY #1 tube 11/18/17 [Silvadene Cream] Allergies Allergy/AdvReac Type Severity Reaction Status Date / Time elastic Allergy Rash/Hives Uncoded 11/18/17 18:44 Review of Systems ROS Statement: Those systems with pertinent positive or pertinent negative responses have been documented in the HPI. ROS Other: All systems not noted in ROS Statement are negative. Past Medical History Past Medical History: COPD, GERD/Reflux, Rheumatoid Arthritis (RA), Sleep Apnea/ CPAP/BIPAP, Thyroid Disorder Additional Past Medical History / Comment(s): USES C-PAP MACHINE, STATES HX OF STOMACH ULCERS, SEE DR HALLMAN'S H&P History of Any Multi-Drug Resistant Organisms: None Reported Past Surgical History: AICD, Heart Catheterization, Pacemaker Additional Past Surgical History / Comment(s): defibilator Past Anesthesia/Blood Transfusion Reactions: No Reported Reaction, Motion Sickness Type of Cardiac Device: AICD Device Placement Date:: UNKNOWN Past Psychological History: Anxiety, Depression Smoking Status: Current every day smoker Past Alcohol Use History: None Reported Past Drug Use History: None Reported - Past Family History Mother Family Medical History: No Reported History General Exam Limitations: no limitations General appearance: alert, in no apparent distress Head exam: Present: atraumatic, normocephalic, normal inspection Respiratory exam: Present: normal lung sounds bilaterally. Absent: respiratory distress, wheezes, rales, rhonchi, stridor Cardiovascular Exam: Present: regular rate, normal rhythm, normal heart sounds. Absent: systolic murmur, diastolic murmur, rubs, gallop, clicks Extremities exam: Present: full ROM (Full range of motion of the left hand including all digits of the left hand), tenderness (Patient has tenderness of the left hand), normal capillary refill (Refill less than 2 seconds in all digits of the left hand. Radial pulse 2+.), other (Superficial burn noted on the left palmar aspect of the hand. Burn is not circumferential. There is no blistering. Palmar aspect of hand is erythematous. ) Course Vital Signs 11/18/17 18:42 Temperature 98.1 F Pulse Rate 67 Respiratory 20 Rate Blood Pressure 131/60 O2 Sat by Pulse 98 Oximetry Medical Decision Making - Medical Decision Making 62-year-old female presents to the emergency determine for chief complaint of burn on the left hand. This happened about 2 hours ago with boiling water. Patient burned only the palmar aspect of her hand. The dorsal aspect is not injured. The burn is not circumferential. Patient's hand is erythematous and tender. No blisters noted. Patient will be given bacitracin during the day and is educated to wrap her hand during the day. At night she will apply Silvadene and keep it on wrapped. She was educated to clean the hand once a day as well. She will monitor for infection and return to the emergency Department if she notices any signs or worsening symptoms. She will follow up with primary care in 1-2 days. Disposition Clinical Impression: Burn Disposition: HOME SELF-CARE Condition: Good Instructions: Superficial Burn (ED) Additional Instructions: Apply bacitracin or antibiotic ointment and wrap the hand during the day. At night apply Silvadene and leave unwrapped. Clean the area once per day. Return to the emergency department if you notice any worsening symptoms or signs of infections. Otherwise follow-up with primary care in 1-2 days. Prescriptions: Bacitracin Oint 1 applic TOPICAL DAILY #1 bottle SILVER sulfADIAZINE CREAM [Silvadene Cream] 1 applic TOPICAL DAILY #1 tube Is patient prescribed a controlled substance at d/c from ED?: No Referrals: Aniya Salamanca MD [Primary Care Provider] - 1-2 days Time of Disposition: 20:11
== END 2017-11-18 20:23 | disposition home or self-care (01) ==
LOC: EC 18:38
DX: T23.052A Burn of unspecified degree of left palm, initial encounter (principal); J44.9 Chronic obstructive pulmonary disease, unspecified; K21.9 Gastro-esophageal reflux disease without esophagitis; G47.30 Sleep apnea, unspecified; Z99.89 Dependence on other enabling machines and devices; E07.9 Disorder of thyroid, unspecified; F32.9 Major depressive disorder, single episode, unspecified; F41.9 Anxiety disorder, unspecified; F17.200 Nicotine dependence, unspecified, uncomplicated; Z79.51 Long term (current) use of inhaled steroids; Z79.82 Long term (current) use of aspirin; Z79.899 Other long term (current) drug therapy; Z91.048 Other nonmedicinal substance allergy status; X12.XXXA Contact with other hot fluids, initial encounter
CPT/HCPCS: 99283

== ENCOUNTER 2017-11-27 11:21 | Emergency (ER) | payer OTHER ==
[2017-11-27 11:26] VITALS: BP 129/58; PULSE 60; RESP 20; TEMP 98.1
[2017-11-27] MEDS ORDERED: DIPH,PERTUS(ACELL)TETVAC-LF 0.5 ML VIAL IM ONE (11:33)
--- NOTE | 2017-11-27 11:37 | ED ---
General Adult HPI - General Chief complaint: Skin/Abscess/Foreign Body Stated complaint: Bee Sting Time Seen by Provider: 11/27/17 11:27 Source: patient, RN notes reviewed Mode of arrival: ambulatory Limitations: no limitations - History of Present Illness Initial comments: Patient is a pleasant 62-year-old female presenting to the emergency department following bee sting. Incident occurred yesterday. Patient has noticed some increased swelling and redness this morning. Patient states she was stung twice. Patient states discomfort increases with movement and touch. No history of problems with bee stings in the past. No other area of involvement or concern. - Related Data Home Medications Medication Instructions Recorded Confirmed ALPRAZolam 1 mg PO QID PRN 08/09/14 11/23/16 Carvedilol 6.25 mg PO BID 08/09/14 11/23/16 Losartan Potassium 25 mg PO QAM 08/09/14 11/23/16 Omeprazole 20 mg PO BID PRN 08/09/14 11/23/16 Simvastatin 20 mg PO HS 08/09/14 11/23/16 Spironolactone [Aldactone] 25 mg PO BID 08/09/14 11/23/16 hydrOXYzine PAMOATE [Vistaril] 100 mg PO TID PRN 08/09/14 11/23/16 Aspirin 325 mg PO DAILY 09/01/16 11/23/16 Levothyroxine Sodium [Synthroid] 100 mcg PO DAILY 09/01/16 11/23/16 Fluticasone/Salmeterol [Advair 1 inhalation PO RT-BID 09/28/16 11/23/16 250-50 Diskus] Furosemide [Lasix] 40 mg PO DAILY 09/28/16 11/23/16 Tiotropium [place] [Spiriva] 1 cap INHALATION RT-DAILY 09/28/16 11/23/16 traMADol HCL [Ultram] 50 mg PO Q8HR PRN 09/28/16 11/23/16 Previous Rx's Medication Instructions Recorded Cephalexin [Keflex] 500 mg PO Q6HR #40 cap 11/23/16 Cephalexin [Keflex] 500 mg PO Q6HR 5 Days cap 11/29/16 Bacitracin Oint 1 applic TOPICAL DAILY #1 bottle 11/18/17 SILVER sulfADIAZINE CREAM 1 applic TOPICAL DAILY #1 tube 11/18/17 [Silvadene Cream] Cephalexin [Keflex] 500 mg PO QID #40 cap 11/27/17 predniSONE 20 mg PO BID #10 tab 11/27/17 Allergies Allergy/AdvReac Type Severity Reaction Status Date / Time elastic Allergy Rash/Hives Uncoded 11/18/17 18:44 Review of Systems ROS Statement: Those systems with pertinent positive or pertinent negative responses have been documented in the HPI. ROS Other: All systems not noted in ROS Statement are negative. Constitutional: Denies: fever Eyes: Denies: eye pain ENT: Denies: ear pain Respiratory: Denies: cough Cardiovascular: Denies: chest pain Endocrine: Denies: fatigue Gastrointestinal: Denies: abdominal pain Genitourinary: Denies: dysuria Musculoskeletal: Denies: back pain Skin: Reports: rash Neurological: Denies: weakness Past Medical History Past Medical History: COPD, GERD/Reflux, Rheumatoid Arthritis (RA), Sleep Apnea/ CPAP/BIPAP, Thyroid Disorder Additional Past Medical History / Comment(s): USES C-PAP MACHINE, STATES HX OF STOMACH ULCERS, SEE DR HALLMAN'S H&P History of Any Multi-Drug Resistant Organisms: None Reported Past Surgical History: AICD, Heart Catheterization, Pacemaker Additional Past Surgical History / Comment(s): defibilator Past Anesthesia/Blood Transfusion Reactions: No Reported Reaction, Motion Sickness Type of Cardiac Device: AICD Device Placement Date:: UNKNOWN Past Psychological History: Anxiety, Depression Smoking Status: Current every day smoker Past Alcohol Use History: None Reported Past Drug Use History: None Reported - Past Family History Mother Family Medical History: No Reported History General Exam Limitations: no limitations General appearance: alert, in no apparent distress Head exam: Present: atraumatic Respiratory exam: Present: normal lung sounds bilaterally Cardiovascular Exam: Present: regular rate, normal rhythm Extremities exam: Present: other (Right ring finger with 2 small areas of You' ll consistent with staining. No foreign body identified. There is mild redness extending above the PIP. There is mild swelling and mild warmth.) Neurological exam: Present: alert Psychiatric exam: Present: normal affect, normal mood Skin exam: Present: rash Course Vital Signs 11/27/17 11:23 Temperature 98.1 F Pulse Rate 60 Respiratory 20 Rate Blood Pressure 129/58 O2 Sat by Pulse 98 Oximetry Medical Decision Making - Medical Decision Making Patient is advised to remove rings. Patient does not want them cut off at this time. Disposition Clinical Impression: Hymenoptera sting Disposition: HOME SELF-CARE Condition: Stable Instructions: Insect Bite or Sting (ED) Additional Instructions: Please follow-up with primary care physician in the next day or 2 for recheck. Return for fever, increased pain, swelling, or redness, worsening symptoms or other concerns. Continue [id number] Benadryl 4 times daily for the next 5 days. Prescriptions: Cephalexin [Keflex] 500 mg PO QID #40 cap predniSONE 20 mg PO BID #10 tab Is patient prescribed a controlled substance at d/c from ED?: No Referrals: Aniya Salamanca MD [Primary Care Provider] - 1-2 days Time of Disposition: 11:37
== END 2017-11-27 12:16 | disposition home or self-care (01) ==
LOC: EC 11:21
DX: T63.441A Toxic effect of venom of bees, accidental (unintentional), initial encounter (principal); J44.9 Chronic obstructive pulmonary disease, unspecified; M06.9 Rheumatoid arthritis, unspecified; G47.30 Sleep apnea, unspecified; Z99.89 Dependence on other enabling machines and devices; E07.9 Disorder of thyroid, unspecified; F32.9 Major depressive disorder, single episode, unspecified; F41.9 Anxiety disorder, unspecified; F17.200 Nicotine dependence, unspecified, uncomplicated; Z79.51 Long term (current) use of inhaled steroids; Z79.82 Long term (current) use of aspirin; Z79.899 Other long term (current) drug therapy; Z91.09 Other allergy status, other than to drugs and biological substances; Z95.818 Presence of other cardiac implants and grafts; Z23 Encounter for immunization; Z95.810 Presence of automatic (implantable) cardiac defibrillator
CPT/HCPCS: 90471; 90715; 99282

== ENCOUNTER 2017-12-26 16:38 | Emergency (ER) | payer OTHER ==
[2017-12-26 16:44] VITALS: BP 111/73; PULSE 70; RESP 18; TEMP 98.7
--- NOTE | 2017-12-26 17:01 | ED ---
General Adult HPI - General Chief complaint: Skin/Abscess/Foreign Body Stated complaint: Bed Bugs Time Seen by Provider: 12/26/17 16:48 Source: patient, RN notes reviewed Mode of arrival: ambulatory Limitations: no limitations - History of Present Illness Initial comments: Patient is a 62-year-old female presented to the emergency room today with a chief complaint of possible exposure to bedbugs. She states that somebody stated her house. She states she has seen them at the house. She states it happened sprain. She states she's been very itchy. She does admit to palms of her hands down her legs and across the abdomen as well. Patient states she's been using Benadryl with little relief of the symptoms. She denies any other complaints. States no loss canals has these bites. Patient denies any recent fever, chills, shortness of breath, chest pain, back pain, abdominal pain, nausea or vomiting, numbness or tingling, headaches or visual changes, or any other complaints. - Related Data Home Medications Medication Instructions Recorded Confirmed ALPRAZolam 1 mg PO QID PRN 08/09/14 11/23/16 Carvedilol 6.25 mg PO BID 08/09/14 11/23/16 Losartan Potassium 25 mg PO QAM 08/09/14 11/23/16 Omeprazole 20 mg PO BID PRN 08/09/14 11/23/16 Simvastatin 20 mg PO HS 08/09/14 11/23/16 Spironolactone [Aldactone] 25 mg PO BID 08/09/14 11/23/16 hydrOXYzine PAMOATE [Vistaril] 100 mg PO TID PRN 08/09/14 11/23/16 Aspirin 325 mg PO DAILY 09/01/16 11/23/16 Levothyroxine Sodium [Synthroid] 100 mcg PO DAILY 09/01/16 11/23/16 Fluticasone/Salmeterol [Advair 1 inhalation PO RT-BID 09/28/16 11/23/16 250-50 Diskus] Furosemide [Lasix] 40 mg PO DAILY 09/28/16 11/23/16 Tiotropium [place] [Spiriva] 1 cap INHALATION RT-DAILY 09/28/16 11/23/16 traMADol HCL [Ultram] 50 mg PO Q8HR PRN 09/28/16 11/23/16 Previous Rx's Medication Instructions Recorded Cephalexin [Keflex] 500 mg PO Q6HR #40 cap 11/23/16 Cephalexin [Keflex] 500 mg PO Q6HR 5 Days cap 11/29/16 Bacitracin Oint 1 applic TOPICAL DAILY #1 bottle 11/18/17 SILVER sulfADIAZINE CREAM 1 applic TOPICAL DAILY #1 tube 11/18/17 [Silvadene Cream] Cephalexin [Keflex] 500 mg PO QID #40 cap 11/27/17 predniSONE 20 mg PO BID #10 tab 11/27/17 Permethrin 5% Cream [Elimite] 1 applic TOPICAL ONCE #1 tube 12/26/17 hydrOXYzine HCL [Atarax] 1 - 2 mg PO QID PRN #30 tab 12/26/17 Allergies Allergy/AdvReac Type Severity Reaction Status Date / Time elastic Allergy Rash/Hives Uncoded 12/26/17 16:44 Review of Systems ROS Statement: Those systems with pertinent positive or pertinent negative responses have been documented in the HPI. ROS Other: All systems not noted in ROS Statement are negative. Past Medical History Past Medical History: COPD, GERD/Reflux, Rheumatoid Arthritis (RA), Sleep Apnea/ CPAP/BIPAP, Thyroid Disorder Additional Past Medical History / Comment(s): USES C-PAP MACHINE, STATES HX OF STOMACH ULCERS, SEE DR HALLMAN'S H&P History of Any Multi-Drug Resistant Organisms: None Reported Past Surgical History: AICD, Heart Catheterization, Pacemaker Additional Past Surgical History / Comment(s): defibilator Past Anesthesia/Blood Transfusion Reactions: No Reported Reaction, Motion Sickness Type of Cardiac Device: AICD Device Placement Date:: UNKNOWN Past Psychological History: Anxiety, Depression Smoking Status: Current every day smoker Past Alcohol Use History: None Reported Past Drug Use History: None Reported - Past Family History Mother Family Medical History: No Reported History General Exam - General Exam Comments Initial Comments: General: The patient is awake and alert, in no distress, and does not appear acutely ill. Eye: Pupils are equal, round and reactive to light, extra-ocular movements are intact. No nystagmus. There is normal conjunctiva bilaterally. No signs of icterus. Ears, nose, mouth and throat: There are moist mucous membranes and no oral lesions. Neck: The neck is supple, there is no tenderness or JVD. Musculoskeletal: Normal ROM, no tenderness. Strength 5/5. Sensation intact. Pulses equal bilaterally 2+. Neurological: A&O x 3. CN II-XII intact, There are no obvious motor or sensory deficits. Coordination appears grossly intact. Speech is normal. Skin: Patient does have mild redness and rash to the palms of the hands and in the webspace on the left between the fourth and fifth digit. A few scattered spots seen lower extremities. Psychiatric: Cooperative, appropriate mood & affect, normal judgment. Limitations: no limitations Course Vital Signs 12/26/17 16:39 Temperature 98.7 F Pulse Rate 70 Respiratory 18 Rate Blood Pressure 111/73 O2 Sat by Pulse 96 Oximetry Medical Decision Making - Medical Decision Making Concerns for scabies were discussed with patient. Advised for treatment of bedbugs well. Advised to use permethrin cream and repeat treatment in 7-10 days. Will be given a prescription for Atarax for itching. Disposition Clinical Impression: Scabies Disposition: HOME SELF-CARE Condition: Good Instructions: Scabies (ED), Bed Bugs (ED) Additional Instructions: Please use medication as discussed. Please follow-up with family doctor in the next 2 days of symptoms have not improved. Please return to emergency room if the symptoms increase or worsen or for any other concerns. Prescriptions: hydrOXYzine HCL [Atarax] 1 - 2 mg PO QID PRN #30 tab PRN Reason: Itching Permethrin 5% Cream [Elimite] 1 applic TOPICAL ONCE #1 tube Is patient prescribed a controlled substance at d/c from ED?: No Referrals: Aniya Salamanca MD [Primary Care Provider] - 1-2 days
== END 2017-12-26 17:30 | disposition home or self-care (01) ==
LOC: EC 16:38
DX: B86 Scabies (principal); J44.9 Chronic obstructive pulmonary disease, unspecified; E07.9 Disorder of thyroid, unspecified; G47.30 Sleep apnea, unspecified; F17.200 Nicotine dependence, unspecified, uncomplicated; Z79.51 Long term (current) use of inhaled steroids; Z79.82 Long term (current) use of aspirin; Z79.899 Other long term (current) drug therapy; Z91.048 Other nonmedicinal substance allergy status; Z99.89 Dependence on other enabling machines and devices
CPT/HCPCS: 99282

== ENCOUNTER 2018-02-10 08:23 | Emergency (ER) | payer OTHER ==
[2018-02-10 08:28] VITALS: BP 124/56; PULSE 74; RESP 18; TEMP 98
--- NOTE | 2018-02-10 09:02 | ED ---
Skin/Abscess/FB HPI - General Chief complaint: Skin/Abscess/Foreign Body Stated complaint: HANDS BLISTERING Time Seen by Provider: 02/10/18 08:40 Source: patient, RN notes reviewed Mode of arrival: ambulatory Limitations: no limitations - History of Present Illness Initial comments: This is a 62-year-old female presents emergency Department with chief complaint of hand cracking and blistering. Patient states that she has severe ALLERGIES and has been told that she touches things it causes a reaction. Patient states that she's been running hot water which makes it feel better but then worsens after. She states her hands really dry and hurts to move them. Denies any fevers or chills no drainage. Patient has known ALLERGY to plastic. She has been putting some itching cream on it states is not helping. - Related Data Home Medications Medication Instructions Recorded Confirmed ALPRAZolam 1 mg PO QID PRN 08/09/14 11/23/16 Carvedilol 6.25 mg PO BID 08/09/14 11/23/16 Losartan Potassium 25 mg PO QAM 08/09/14 11/23/16 Omeprazole 20 mg PO BID PRN 08/09/14 11/23/16 Simvastatin 20 mg PO HS 08/09/14 11/23/16 Spironolactone [Aldactone] 25 mg PO BID 08/09/14 11/23/16 hydrOXYzine PAMOATE [Vistaril] 100 mg PO TID PRN 08/09/14 11/23/16 Aspirin 325 mg PO DAILY 09/01/16 11/23/16 Levothyroxine Sodium [Synthroid] 100 mcg PO DAILY 09/01/16 11/23/16 Fluticasone/Salmeterol [Advair 1 inhalation PO RT-BID 09/28/16 11/23/16 250-50 Diskus] Furosemide [Lasix] 40 mg PO DAILY 09/28/16 11/23/16 Tiotropium [place] [Spiriva] 1 cap INHALATION RT-DAILY 09/28/16 11/23/16 traMADol HCL [Ultram] 50 mg PO Q8HR PRN 09/28/16 11/23/16 Previous Rx's Medication Instructions Recorded Cephalexin [Keflex] 500 mg PO Q6HR #40 cap 11/23/16 Cephalexin [Keflex] 500 mg PO Q6HR 5 Days cap 11/29/16 Bacitracin Oint 1 applic TOPICAL DAILY #1 bottle 11/18/17 SILVER sulfADIAZINE CREAM 1 applic TOPICAL DAILY #1 tube 11/18/17 [Silvadene Cream] Cephalexin [Keflex] 500 mg PO QID #40 cap 11/27/17 predniSONE 20 mg PO BID #10 tab 11/27/17 Permethrin 5% Cream [Elimite] 1 applic TOPICAL ONCE #1 tube 12/26/17 hydrOXYzine HCL [Atarax] 1 - 2 mg PO QID PRN #30 tab 12/26/17 Triamcinolone 0.1% Cream [Kenalog 1 applicatio TOPICAL BID #30 gram 02/10/18 0.1% Cream] hydrOXYzine HCL [Atarax] 25 mg PO TID PRN #20 tab 02/10/18 Allergies Allergy/AdvReac Type Severity Reaction Status Date / Time elastic Allergy Rash/Hives Uncoded 02/10/18 08:28 Review of Systems ROS Statement: Those systems with pertinent positive or pertinent negative responses have been documented in the HPI. ROS Other: All systems not noted in ROS Statement are negative. Past Medical History Past Medical History: COPD, GERD/Reflux, Rheumatoid Arthritis (RA), Sleep Apnea/ CPAP/BIPAP, Thyroid Disorder Additional Past Medical History / Comment(s): USES C-PAP MACHINE, STATES HX OF STOMACH ULCERS, SEE DR HALLMAN'S H&P History of Any Multi-Drug Resistant Organisms: None Reported Past Surgical History: AICD, Heart Catheterization, Pacemaker Additional Past Surgical History / Comment(s): defibilator Past Anesthesia/Blood Transfusion Reactions: No Reported Reaction, Motion Sickness Type of Cardiac Device: AICD Device Placement Date:: UNKNOWN Past Psychological History: Anxiety, Depression Smoking Status: Current every day smoker Past Alcohol Use History: None Reported Past Drug Use History: None Reported - Past Family History Mother Family Medical History: No Reported History General Exam Limitations: no limitations General appearance: alert, in no apparent distress Head exam: Present: atraumatic, normocephalic, normal inspection Neck exam: Present: normal inspection. Absent: tenderness, meningismus, lymphadenopathy Respiratory exam: Present: normal lung sounds bilaterally. Absent: respiratory distress, wheezes, rales, rhonchi, stridor Cardiovascular Exam: Present: regular rate, normal rhythm, normal heart sounds. Absent: systolic murmur, diastolic murmur, rubs, gallop, clicks Skin exam: Present: warm, dry, intact, normal color, rash (Bilateral hands there are multiple areas of noted skin cracking, small papules slight erythema of the skin consistent with dyshidrotic eczema) Course Vital Signs 02/10/18 08:24 Temperature 98 F Pulse Rate 74 Respiratory 18 Rate Blood Pressure 124/56 O2 Sat by Pulse 96 Oximetry Disposition Clinical Impression: Dyshidrotic eczema, Contact dermatitis Disposition: HOME SELF-CARE Condition: Stable Instructions: Dyshidrotic Eczema (ED) Additional Instructions: Please return to the Emergency Department if symptoms worsen or any other concerns. Prescriptions: hydrOXYzine HCL [Atarax] 25 mg PO TID PRN #20 tab PRN Reason: itching Triamcinolone 0.1% Cream [Kenalog 0.1% Cream] 1 applicatio TOPICAL BID #30 gram Is patient prescribed a controlled substance at d/c from ED?: No Referrals: Aniya Salamanca MD [Primary Care Provider] - 1-2 days Time of Disposition: 09:02
[2018-02-10] MEDS ORDERED: hydrOXYzine HCL 25 MG TAB PO STA (09:04)
== END 2018-02-10 09:21 | disposition home or self-care (01) ==
LOC: EC 08:23
DX: L30.1 Dyshidrosis [pompholyx] (principal); L25.9 Unspecified contact dermatitis, unspecified cause; J44.9 Chronic obstructive pulmonary disease, unspecified; K21.9 Gastro-esophageal reflux disease without esophagitis; E07.9 Disorder of thyroid, unspecified; M06.9 Rheumatoid arthritis, unspecified; G47.30 Sleep apnea, unspecified; F17.200 Nicotine dependence, unspecified, uncomplicated; Z79.51 Long term (current) use of inhaled steroids; Z79.82 Long term (current) use of aspirin; Z79.899 Other long term (current) drug therapy; Z91.048 Other nonmedicinal substance allergy status; Z99.89 Dependence on other enabling machines and devices
CPT/HCPCS: 99283

== ENCOUNTER 2019-01-30 08:50 | Emergency (ER) | payer OTHER ==
[2019-01-30 08:58] VITALS: BP 106/73; PULSE 70; RESP 16; TEMP 99.2
[2019-01-30] MEDS ORDERED: ACET/COD 300 MG/30 MG STARTER PACK 6 TAB BTL PO STA (09:20)
--- NOTE | 2019-01-30 09:20 | ED ---
Skin/Abscess/FB HPI - General Chief complaint: Skin/Abscess/Foreign Body Stated complaint: bilat arm bruising, abscess Time Seen by Provider: 01/30/19 09:00 Source: patient, RN notes reviewed Mode of arrival: ambulatory Limitations: no limitations - History of Present Illness Initial comments: 63-year-old female presents emergency department for hip infection. Patient states that she has an abscessed area on her right buttocks region. Patient states that she's had no fevers or chills. Patient has no history of MRSA or VRE. Patient states that his painful and is red. She states that the skin is hard. Patient denies any trauma to the area. Patient also states that she's been having bruising of her arms which is ongoing and is being followed by dermatology. Patient states that she has been given does tear. Patient denies any new symptoms with her arms. - Related Data Home Medications Medication Instructions Recorded Confirmed ALPRAZolam 1 mg PO QID PRN 08/09/14 01/30/19 Carvedilol 6.25 mg PO BID 08/09/14 01/30/19 Losartan Potassium 25 mg PO QAM 08/09/14 01/30/19 Simvastatin 20 mg PO HS 08/09/14 01/30/19 Spironolactone [Aldactone] 25 mg PO BID 08/09/14 01/30/19 hydrOXYzine PAMOATE [Vistaril] 100 mg PO TID PRN 08/09/14 01/30/19 Furosemide [Lasix] 40 mg PO DAILY 09/28/16 01/30/19 traMADol HCL [Ultram] 50 mg PO Q8HR PRN 09/28/16 01/30/19 Albuterol Inhaler [Ventolin Hfa 1 - 2 puff INHALATION RT-Q6H PRN 02/10/18 01/30/19 Inhaler] Ergocalciferol [Vitamin D2] 50,000 unit PO Q7D 02/10/18 01/30/19 Levothyroxine Sodium [Synthroid] 112 mcg PO DAILY 02/10/18 01/30/19 PARoxetine HCL 40 mg PO DAILY 02/10/18 01/30/19 Umeclidinium [place] [Incruse 1 puff INHALATION RT-DAILY 02/10/18 01/30/19 Ellipta] Previous Rx's Medication Instructions Recorded Triamcinolone 0.1% Cream [Kenalog 1 applicatio TOPICAL BID #30 gram 02/10/18 0.1% Cream] Cephalexin [Keflex] 500 mg PO Q6HR #40 cap 01/30/19 Sulfamethox-Tmp 800-160Mg [Bactrim 1 each PO Q12HR #20 tab 01/30/19 Ds] Allergies Allergy/AdvReac Type Severity Reaction Status Date / Time elastic Allergy Rash/Hives Uncoded 01/30/19 09:08 Review of Systems ROS Statement: Those systems with pertinent positive or pertinent negative responses have been documented in the HPI. ROS Other: All systems not noted in ROS Statement are negative. Past Medical History Past Medical History: COPD, GERD/Reflux, Rheumatoid Arthritis (RA), Sleep Apnea/CPAP/BIPAP, Thyroid Disorder Additional Past Medical History / Comment(s): USES C-PAP MACHINE, STATES HX OF STOMACH ULCERS, SEE DR HALLMAN'S H&P History of Any Multi-Drug Resistant Organisms: None Reported Past Surgical History: AICD, Heart Catheterization, Pacemaker Additional Past Surgical History / Comment(s): defibilator Past Anesthesia/Blood Transfusion Reactions: No Reported Reaction, Motion Sickness Type of Cardiac Device: AICD Device Placement Date:: UNKNOWN Past Psychological History: Anxiety, Depression Smoking Status: Current every day smoker Past Alcohol Use History: None Reported Past Drug Use History: None Reported - Past Family History Mother Family Medical History: No Reported History General Exam Limitations: no limitations General appearance: alert, in no apparent distress Head exam: Present: atraumatic, normocephalic, normal inspection Neck exam: Present: normal inspection, full ROM. Absent: tenderness, meningismus, lymphadenopathy Respiratory exam: Present: normal lung sounds bilaterally. Absent: respiratory distress, wheezes, rales, rhonchi, stridor Cardiovascular Exam: Present: regular rate, normal rhythm, normal heart sounds. Absent: systolic murmur, diastolic murmur, rubs, gallop, clicks Skin exam: Present: warm, dry, other (Right buttocks region there is an area of induration approximately 3x2cm with no fluctuant area, mildly tender with palpation no localized area. Bilateral arms are areas of ecchymosis with superficial skin tears.) Course Vital Signs 01/30/19 08:56 Temperature 99.2 F Pulse Rate 70 Respiratory 16 Rate Blood Pressure 106/73 O2 Sat by Pulse 97 Oximetry Medical Decision Making - Medical Decision Making 63-year-old female presents emergency from for right hip/buttocks abscess. There is no fluctuant area this could be an early forming abscess with current cellulitis. Patient we placed on Bactrim and Keflex. Patient advised to warm compresses she is to return if there is a fluctuant worsening area that is able to be drained. Patient has bilateral arm skin tears with no signs of infection, she does have some area of ecchymosis and which may be from taking aspirin daily. Patient is being followed by dermatology. Patient we discharged return parameters were discussed. Disposition Clinical Impression: Skin tear, Cellulitis and abscess of buttock Disposition: HOME SELF-CARE Condition: Stable Instructions (If sedation given, give patient instructions): Abscess (ED) Additional Instructions: Please return to the Emergency Department if symptoms worsen or any other concerns. Prescriptions: Sulfamethox-Tmp 800-160Mg [Bactrim Ds] 1 each PO Q12HR #20 tab Cephalexin [Keflex] 500 mg PO Q6HR #40 cap Is patient prescribed a controlled substance at d/c from ED?: No Referrals: Aniya Salamanca MD [Primary Care Provider] - 1-2 days Time of Disposition: 09:20
== END 2019-01-30 09:41 | disposition home or self-care (01) ==
LOC: EC 08:50
DX: S41.112A Laceration without foreign body of left upper arm, initial encounter (principal); S41.111A Laceration without foreign body of right upper arm, initial encounter; L03.317 Cellulitis of buttock; J44.9 Chronic obstructive pulmonary disease, unspecified; K21.9 Gastro-esophageal reflux disease without esophagitis; M06.9 Rheumatoid arthritis, unspecified; G47.30 Sleep apnea, unspecified; Z99.89 Dependence on other enabling machines and devices; E07.9 Disorder of thyroid, unspecified; F32.9 Major depressive disorder, single episode, unspecified; F41.9 Anxiety disorder, unspecified; F17.200 Nicotine dependence, unspecified, uncomplicated; Z79.51 Long term (current) use of inhaled steroids; Z79.890 Hormone replacement therapy; Z79.899 Other long term (current) drug therapy; Z91.09 Other allergy status, other than to drugs and biological substances; Z95.810 Presence of automatic (implantable) cardiac defibrillator
CPT/HCPCS: 99283

== ENCOUNTER → 2019-02-07 | Outpatient (CLI) | payer OTHER ==
[2019-02-07 12:23] LABS: Anisocytosis Slight; Basophils # (A) 0.1 k/uL (0-0.2); Basophils % (A) 0 %; Eosinophils # (A) 0.1 k/uL (0-0.7); Eosinophils % (A) 1 %; HGB 11.7 gm/dL (11.4-16.0); Lymphocytes # (A) 2.2 k/uL (1.0-4.8); Lymphocytes % (A) 21 %; MCH 25.6 pg (25.0-35.0); MCHC 31.7 g/dL (31.0-37.0); MCV 80.7 fL (80.0-100.0); Mean Platelet Volume 7.3; Monocytes # (A) 0.8 k/uL (0-1.0); Monocytes % (A) 7 %; Neutrophils # (A) 7.3 k/uL (1.3-7.7); Neutrophils % (A) 68 %; Platelet Count 393 k/uL (150-450); RBC 4.58 m/uL (3.80-5.40); RDW 17.2 % (11.5-15.5); WBC 10.8 k/uL (3.8-10.6)
== END | disposition home or self-care (01) ==
LOC: LABWHC1 11:16
PROVIDERS: ATTEND Nurse Practitioner Family
DX: D69.2 Other nonthrombocytopenic purpura (principal)
CPT/HCPCS: 36415; 85025

== ENCOUNTER → 2019-02-21 | Outpatient (CLI) | payer OTHER ==
[2019-02-21 21:38] LABS: Anti-DNA, DS unit <1.0 IU/mL; Anti-Smith Ab Interp NEGATIVE (NEGATIVE); DNA Double-Stranded NEGATIVE (NEGATIVE)
[2019-02-24 11:28] LABS: Lyme IgG/IgM Interp NEGATIVE (NEGATIVE)
== END | disposition home or self-care (01) ==
LOC: LABWHC1 11:15
PROVIDERS: ATTEND Dermatology
DX: L30.9 Dermatitis, unspecified (principal)
CPT/HCPCS: 36415; 86038; 86225; 86235; 86618

== ENCOUNTER 2019-02-25 13:23 | Emergency (ER) | payer OTHER ==
[2019-02-25 13:40] VITALS: RESP 18
[2019-02-25 15:21] LABS: Anisocytosis Slight; Basophils % (A) 0 %; Eosinophils # (A) 0.1 k/uL (0-0.7); Eosinophils % (A) 1 %; HCT 36.3 % (34.0-46.0); HGB 11.7 gm/dL (11.4-16.0); Lymphocytes # (A) 2.2 k/uL (1.0-4.8); Lymphocytes % (A) 18 %; MCH 26.6 pg (25.0-35.0); MCHC 32.2 g/dL (31.0-37.0); MCV 82.4 fL (80.0-100.0); Mean Platelet Volume 6.8; Monocytes # (A) 0.8 k/uL (0-1.0); Monocytes % (A) 7 %; Neutrophils # (A) 8.4 k/uL (1.3-7.7); Neutrophils % (A) 72 %; Platelet Count 385 k/uL (150-450); RDW 17.5 % (11.5-15.5); WBC 11.8 k/uL (3.8-10.6)
[2019-02-25 15:31] LABS: Albumin 3.9 g/dL (3.5-5.0); Calcium 9.1 mg/dL (8.4-10.2); Potassium 4.3 mmol/L (3.5-5.1); Total Bilirubin 0.2 mg/dL (0.2-1.3); Total Protein 6.6 g/dL (6.3-8.2)
[2019-02-25 15:32] LABS: INR 0.8 (<1.2); Partial Thromboplastin Time 24.9 sec (22.0-30.0); Prothrombin Time 9.4 sec (9.0-12.0)
--- NOTE | 2019-02-25 16:39 | ED ---
General Adult HPI - General Chief complaint: Recheck/Abnormal Lab/Rx Stated complaint: Bruising Time Seen by Provider: 02/25/19 14:05 Source: patient, RN notes reviewed, old records reviewed Mode of arrival: ambulatory Limitations: no limitations - History of Present Illness Initial comments: 63-year-old female patient presents ED chief complaint of itchy rash on her arms for approximately 7 weeks. Patient's been seen by dermatology and her primary care multiple times for this where she received steroids as well as has had biopsy of these lesions. Patient reports that she currently presenting today to receive another opinion. Denies any other complaints. Denies any neck pain, denies any headache. Systemic: Pt denies fatigue, fever/chills. Pt denies weakness, night sweats, weight loss. Neuro: Pt denies headache, visual disturbances, syncope or pre-syncope. HEENT: Pt denies ocular discharge or irritation, otalgia, rhinorrhea, pharyngitis or notable lymphadenopathy. Cardiopulmonary: Pt denies chest pain, SOB, heart palpitations, dyspnea on exertion. Abdominal/GI: Pt denies abdominal pain, n/v/d. : Pt denies dysuria, burning w/ urination, frequency/urgency. Denies new onset urinary or bowel incontinence. MSK: Pt denies myalgia, loss of strength or function in extremities. Neuro: Pt denies new onset weakness, paresthesias. - Related Data Home Medications Medication Instructions Recorded Confirmed ALPRAZolam 1 mg PO QID PRN 08/09/14 02/25/19 Carvedilol 6.25 mg PO BID 08/09/14 02/25/19 Losartan Potassium 25 mg PO QAM 08/09/14 02/25/19 Simvastatin 20 mg PO HS 08/09/14 02/25/19 Spironolactone [Aldactone] 25 mg PO BID 08/09/14 02/25/19 hydrOXYzine PAMOATE [Vistaril] 100 mg PO TID PRN 08/09/14 02/25/19 Furosemide [Lasix] 40 mg PO DAILY 09/28/16 02/25/19 traMADol HCL [Ultram] 50 mg PO Q8HR PRN 09/28/16 02/25/19 Albuterol Inhaler [Ventolin Hfa 1 - 2 puff INHALATION RT-Q6H PRN 02/10/18 02/25/19 Inhaler] Ergocalciferol [Vitamin D2] 50,000 unit PO MO 02/10/18 02/25/19 Levothyroxine Sodium [Synthroid] 112 mcg PO DAILY 02/10/18 02/25/19 PARoxetine HCL 40 mg PO DAILY 02/10/18 02/25/19 Umeclidinium [place] [Incruse 1 puff INHALATION RT-DAILY 02/10/18 02/25/19 Ellipta] Potassium Chloride ER [K-Dur 10] 10 meq PO DAILY 02/25/19 02/25/19 Allergies Allergy/AdvReac Type Severity Reaction Status Date / Time elastic Allergy Rash/Hives Uncoded 02/25/19 14:04 Review of Systems ROS Statement: Those systems with pertinent positive or pertinent negative responses have been documented in the HPI. ROS Other: All systems not noted in ROS Statement are negative. Past Medical History Past Medical History: COPD, GERD/Reflux, Rheumatoid Arthritis (RA), Sleep Apnea/CPAP/BIPAP, Thyroid Disorder Additional Past Medical History / Comment(s): USES C-PAP MACHINE, STATES HX OF STOMACH ULCERS, SEE DR HALLMAN'S H&P History of Any Multi-Drug Resistant Organisms: None Reported Past Surgical History: AICD, Heart Catheterization, Pacemaker Additional Past Surgical History / Comment(s): defibilator Past Anesthesia/Blood Transfusion Reactions: No Reported Reaction, Motion Sickness Type of Cardiac Device: AICD Device Placement Date:: UNKNOWN Past Psychological History: Anxiety, Depression Smoking Status: Current every day smoker Past Alcohol Use History: None Reported Past Drug Use History: None Reported - Past Family History Mother Family Medical History: No Reported History General Exam - General Exam Comments Initial Comments: Constitutional: NAD, AOX3, Pt has pleasant affect. HEENT: NC/AT, trachea midline, neck supple, no lymphadenopathy. Posterior pharynx non erythematous, without exudates. External ears appear normal, without discharge. Mucous membranes moist. Eyes PERRLA, EOM intact. There is no scleral icterus. No pallor noted. Cardiopulmonary: RRR, no murmurs, rubs or gallops, no JVD noted. Lungs CTAB in anterior and posterior silveira. No peripheral edema. Abdominal exam: Abdomen soft and non-distended. Abdomen non-tender to palpation in all 4 quadrants. Bowel sounds active in LLQ. No hepatosplenomegaly. No ecchymosis Neuro: CN II-XII grossly intact. No nuchal rigidity. No raccon eyes, no asif sign, no hemotympanum. No cervical spinal tenderness. MSK: No posterior calf tenderness bilaterally, homans sign negative bilaterally. Posterior tibialis and radial pulse +2 bilaterally. Sensation intact in upper and lower extremities. Full active ROM in upper and lower extremities, 5/5 stregnth. Derm: Petechial rash noted on upper extremities bilaterally, spares soft palate, palms and soles no other areas of rash. Limitations: no limitations Course Vital Signs 02/25/19 13:36 Temperature 98.2 F Pulse Rate 75 Respiratory 18 Rate Blood Pressure 100/68 O2 Sat by Pulse 96 Oximetry Medical Decision Making - Medical Decision Making 63-year-old female patient. See for rash which has been ongoing for 7 weeks. Patient has been seen previously by dermatology, primary care and does have an appointment with heme. Patient vital signs stable, afebrile. Physical exam displayed petechial rash on upper extremities. CBC, CMP, cardiac ablation studies non-impressive. Patient will be discharged, will follow-up with primary care provider, dermatology as well as previous is scheduled heme oncology. Case discussed and patient seen by Dr. Cruz. - Lab Data Result diagrams: 02/25/19 15:05 02/25/19 15:05 Lab Results 02/25/19 02/25/19 02/25/19 Range/Units 15:05 15:05 15:05 WBC 11.8 H (3.8-10.6) k/uL RBC 4.40 (3.80-5.40) m/uL Hgb 11.7 (11.4-16.0) gm/dL Hct 36.3 (34.0-46.0) % MCV 82.4 (80.0-100.0) fL MCH 26.6 (25.0-35.0) pg MCHC 32.2 (31.0-37.0) g/dL RDW 17.5 H (11.5-15.5) % Plt Count 385 (150-450) k/uL Neutrophils % 72 % Lymphocytes % 18 % Monocytes % 7 % Eosinophils % 1 % Basophils % 0 % Neutrophils # 8.4 H (1.3-7.7) k/uL Lymphocytes # 2.2 (1.0-4.8) k/uL Monocytes # 0.8 (0-1.0) k/uL Eosinophils # 0.1 (0-0.7) k/uL Basophils # 0.0 (0-0.2) k/uL Anisocytosis Slight PT 9.4 (9.0-12.0) sec INR 0.8 (<1.2) APTT 24.9 (22.0-30.0) sec Sodium 138 (137-145) mmol/L Potassium 4.3 (3.5-5.1) mmol/L Chloride 99 (98-107) mmol/L Carbon Dioxide 32 H (22-30) mmol/L Anion Gap 7 mmol/L BUN 16 (7-17) mg/dL Creatinine 0.96 (0.52-1.04) mg/dL Est GFR (CKD-EPI)AfAm 74 (>60 ml/min/1.73 sqM) Est GFR (CKD-EPI)NonAf 64 (>60 ml/min/1.73 sqM) Glucose 95 (74-99) mg/dL Calcium 9.1 (8.4-10.2) mg/dL Total Bilirubin 0.2 (0.2-1.3) mg/dL AST 19 (14-36) U/L ALT 18 (9-52) U/L Alkaline Phosphatase 100 (38-126) U/L Total Protein 6.6 (6.3-8.2) g/dL Albumin 3.9 (3.5-5.0) g/dL Disposition Clinical Impression: Rash and nonspecific skin eruption Disposition: HOME SELF-CARE Condition: Stable Instructions (If sedation given, give patient instructions): Acute Rash (ED) Additional Instructions: Patient to adhere to previously discussed treatment plan and will take medication(s) as directed. Patient to follow up with PCP in 1-2 days. Patient to return to ED if symptoms do not improve. Continue to follow with dermatology, primary care provider, heme oncologist. Return to ER if condition worsens. Is patient prescribed a controlled substance at d/c from ED?: No Referrals: Aniya Salamanca MD [Primary Care Provider] - 1-2 days
[2019-02-25 16:50] VITALS: BP 102/67; PULSE 78; TEMP 98
== END 2019-02-25 16:50 | disposition home or self-care (01) ==
LOC: EC 13:23
DX: L29.9 Pruritus, unspecified (principal); J44.9 Chronic obstructive pulmonary disease, unspecified; G47.30 Sleep apnea, unspecified; Z99.89 Dependence on other enabling machines and devices; E07.9 Disorder of thyroid, unspecified; F41.9 Anxiety disorder, unspecified; F32.9 Major depressive disorder, single episode, unspecified; F17.200 Nicotine dependence, unspecified, uncomplicated; Z95.810 Presence of automatic (implantable) cardiac defibrillator; Z95.818 Presence of other cardiac implants and grafts; Z79.890 Hormone replacement therapy; Z79.899 Other long term (current) drug therapy; Z91.048 Other nonmedicinal substance allergy status
CPT/HCPCS: 36415; 80053; 85025; 85610; 85730; 99284

== ENCOUNTER → 2019-03-14 | Outpatient (CLI) | payer OTHER ==
[2019-03-14 17:40] LABS: Anion Gap 5.6 mmol/L (4.00-12.00); Calcium 9.1 mg/dL (8.7-10.3); Carbon Dioxide 30.4 mmol/L (21.6-31.8); Magnesium 2.3 mg/dL (1.5-2.4); Potassium 4.8 mmol/L (3.5-5.5)
== END | disposition home or self-care (01) ==
LOC: LABWHC1 08:55
PROVIDERS: ATTEND Nurse Practitioner Adult Health
DX: I10 Essential (primary) hypertension (principal)
CPT/HCPCS: 36415; 80048; 83735

== ENCOUNTER 2019-07-16 05:47 | Emergency (ER) | payer OTHER ==
[2019-07-16 05:58] VITALS: BP 122/66; PULSE 73; RESP 20; TEMP 97.5
[2019-07-16] MEDS ORDERED: predniSONE 50 MG TAB PO STA (06:12)
--- NOTE | 2019-07-16 06:15 | ED ---
General Adult HPI - General Source: patient, family, RN notes reviewed, old records reviewed Mode of arrival: ambulatory Limitations: no limitations <Archana Rodas - Last Filed: 07/16/19 06:16> <Stacie Ahuja - Last Filed: 07/16/19 22:15> - General Chief complaint: Allergic Reaction Stated complaint: allergic reaction Time Seen by Provider: 07/16/19 06:07 - History of Present Illness Initial comments: 64-year-old female presents today for evaluation for contact dermatitis from a new cream over her hands. She has history of fungal infection on bilateral hands. She states she ran out of her clotrimazole 1% cream. She was then prescribed ammonium lactate. She reports ectopy using this yesterday for the fi rst time started to have reaction, burning sensation on her hands and swelling. Patient states that she has no difficulty breathing or swallowing. Patient reports that she feels a irritation slammed her forearm. Patient states that she's had clotrimazole cream before and not worked better for her rash. She states she does follow with dermatology. (Archana Rodas) - Related Data Home Medications Medication Instructions Recorded Confirmed ALPRAZolam 1 mg PO QID PRN 08/09/14 02/25/19 Carvedilol 6.25 mg PO BID 08/09/14 02/25/19 Losartan Potassium 25 mg PO QAM 08/09/14 02/25/19 Simvastatin 20 mg PO HS 08/09/14 02/25/19 Spironolactone [Aldactone] 25 mg PO BID 08/09/14 02/25/19 hydrOXYzine PAMOATE [Vistaril] 100 mg PO TID PRN 08/09/14 02/25/19 Furosemide [Lasix] 40 mg PO DAILY 09/28/16 02/25/19 traMADol HCL [Ultram] 50 mg PO Q8HR PRN 09/28/16 02/25/19 Albuterol Inhaler [Ventolin Hfa 1 - 2 puff INHALATION RT-Q6H PRN 02/10/18 02/25/19 Inhaler] Ergocalciferol [Vitamin D2] 50,000 unit PO MO 02/10/18 02/25/19 Levothyroxine Sodium [Synthroid] 112 mcg PO DAILY 02/10/18 02/25/19 PARoxetine HCL 40 mg PO DAILY 02/10/18 02/25/19 Umeclidinium [place] [Incruse 1 puff INHALATION RT-DAILY 02/10/18 02/25/19 Ellipta] Potassium Chloride ER [K-Dur 10] 10 meq PO DAILY 02/25/19 02/25/19 Previous Rx's Medication Instructions Recorded Clotrimazole Cream [Lotrimin Cream] 1 applic TOPICAL BID #60 gm 07/16/19 Hydrocortisone Cream 1 applic TOPICAL BID #60 gm 07/16/19 [Hydrocortisone 1% Cream] methylPREDNISolone Dose Pack 4 mg PO DIRECTED #21 package 07/16/19 [Medrol Dose Pack] Allergies Allergy/AdvReac Type Severity Reaction Status Date / Time elastic Allergy Rash/Hives Uncoded 07/16/19 05:58 Review of Systems ROS Other: All systems not noted in ROS Statement are negative. <Archana Rodas - Last Filed: 07/16/19 06:16> ROS Other: All systems not noted in ROS Statement are negative. <Stacie Ahuja - Last Filed: 07/16/19 22:15> ROS Statement: Those systems with pertinent positive or pertinent negative responses have been documented in the HPI. Past Medical History Past Medical History: COPD, GERD/Reflux, Rheumatoid Arthritis (RA), Sleep Apnea/CPAP/BIPAP, Thyroid Disorder Additional Past Medical History / Comment(s): USES C-PAP MACHINE, STATES HX OF STOMACH ULCERS, SEE DR HALLMAN'S H&P History of Any Multi-Drug Resistant Organisms: None Reported Past Surgical History: AICD, Heart Catheterization, Pacemaker Additional Past Surgical History / Comment(s): defibilator Past Anesthesia/Blood Transfusion Reactions: No Reported Reaction, Motion Sickness Type of Cardiac Device: AICD Device Placement Date:: UNKNOWN Past Psychological History: Anxiety, Depression Smoking Status: Current every day smoker Past Alcohol Use History: None Reported Past Drug Use History: None Reported - Past Family History Mother Family Medical History: No Reported History <Archana Rodas - Last Filed: 07/16/19 06:16> General Exam Limitations: no limitations General appearance: alert, in no apparent distress Head exam: Present: atraumatic, normocephalic, normal inspection Eye exam: Present: normal appearance, PERRL, EOMI. Absent: scleral icterus, conjunctival injection, periorbital swelling ENT exam: Present: normal exam, mucous membranes moist Neck exam: Present: normal inspection. Absent: tenderness, meningismus, lymphadenopathy Respiratory exam: Present: normal lung sounds bilaterally. Absent: respiratory distress, wheezes, rales, rhonchi, stridor Cardiovascular Exam: Present: regular rate, normal rhythm, normal heart sounds. Absent: systolic murmur, diastolic murmur, rubs, gallop, clicks GI/Abdominal exam: Present: soft, normal bowel sounds. Absent: distended, tenderness, guarding, rebound, rigid Back exam: Present: normal inspection Neurological exam: Present: alert, oriented X3, CN II-XII intact Psychiatric exam: Present: normal affect, normal mood Skin exam: Present: warm, rash (Patient has dry scaly skin over her bilateral hands. Some excoriations are noted. Thickened skin. ) <Archana Rodas - Last Filed: 07/16/19 06:16> - General Exam Comments Initial Comments: 64-year-old female. Alert and oriented 3. No distress. (Archana Rodas) Course Vital Signs 07/16/19 05:53 Temperature 97.5 F L Pulse Rate 73 Respiratory 20 Rate Blood Pressure 122/66 O2 Sat by Pulse 96 Oximetry Medical Decision Making <Archana Rodas - Last Filed: 07/16/19 06:16> <Stacie Ahuja - Last Filed: 07/16/19 22:15> - Medical Decision Making 64-year-old female presented today for evaluation for concern for reaction to ammonium lactate lotion over her hands. She is evidence of fungal infection reports she is a prescription for same yesterday and now has irritation and burning sensation in her hand. Discussed June reflexes are reactive contact dermatitis. Patient will be prescribed steroid cream, given oral steroid emergency department. Patient advised to use [id number] Benadryl for itching and swelling as well. Patient also will have a refill of her clotrimazole 1% cream. I discussed following up with her barometers calibrator or primary care doctor. (Archana Rodas) I was available for consultation in the emergency department. The history and physical exam were done by the midlevel provider. I was consulted for this patients care. I reviewed the case with the midlevel provider and based on their presentation of the patient, I agree with the assessment, medical decision making and plan of care as documented. Chart was dictated using [employer] dictation software. Attempts were made to correct any dictation errors however some typographical errors may persist. (Stacie Ahuja) Disposition Is patient prescribed a controlled substance at d/c from ED?: No Time of Disposition: 06:13 <Archana Rodas - Last Filed: 07/16/19 06:16> <Stacie Ahuja - Last Filed: 07/16/19 22:15> Clinical Impression: Contact dermatitis, Medication refill Disposition: HOME SELF-CARE Condition: Good Instructions (If sedation given, give patient instructions): Contact Dermatitis (ED) Additional Instructions: Please use medication as discussed. Please follow up with family doctor if symptoms have not improved over the next two days. Please return to the emergency room if your symptoms increase or worsen or for any other concerns. Prescriptions: Hydrocortisone Cream [Hydrocortisone 1% Cream] 1 applic TOPICAL BID #60 gm Clotrimazole Cream [Lotrimin Cream] 1 applic TOPICAL BID #60 gm methylPREDNISolone Dose Pack [Medrol Dose Pack] 4 mg PO DIRECTED #21 package Referrals: Aniya Salamanca MD [Primary Care Provider] - 1-2 days
== END 2019-07-16 06:30 | disposition home or self-care (01) ==
LOC: EC 05:47
DX: L23.3 Allergic contact dermatitis due to drugs in contact with skin (principal); T49.0X5A Adverse effect of local antifungal, anti-infective and anti-inflammatory drugs, initial encounter; Z76.0 Encounter for issue of repeat prescription; J44.9 Chronic obstructive pulmonary disease, unspecified; E07.9 Disorder of thyroid, unspecified; G47.30 Sleep apnea, unspecified; F32.9 Major depressive disorder, single episode, unspecified; F41.9 Anxiety disorder, unspecified; F17.200 Nicotine dependence, unspecified, uncomplicated; Z91.048 Other nonmedicinal substance allergy status; Z79.890 Hormone replacement therapy; Z79.899 Other long term (current) drug therapy; Z99.89 Dependence on other enabling machines and devices
CPT/HCPCS: 99283; J7512

== ENCOUNTER 2019-08-19 17:33 | Emergency (ER) | payer OTHER ==
[2019-08-19] MEDS ORDERED: KETOTIFEN 0.025% OPHTH DROPS 5 ML BTL BOTH EYES STA (18:47)
[2019-08-19] MEDS ORDERED: LORATADINE 10 MG TAB PO STA (18:47)
--- NOTE | 2019-08-19 18:49 | ED ---
Eye Problem HPI - General Chief complaint: Eye Problems Stated complaint: eye problem Time Seen by Provider: 08/19/19 18:04 Source: patient Mode of arrival: ambulatory Limitations: no limitations - History of Present Illness Initial comments: 64-year-old female patient presents to the emergency department today for evaluation for possible bed bugs. Patient states that she came in due to concern for having bedbugs at home. States she believes this is causing her ALLERGIES to become worse. States she is having some bilateral eye itching and puffiness. States she also has a worse cough in the morning. The patient does have known COPD and uses nebulizer and inhalers. Patient denies any throat or tongue swelling. Denies any rash. States that she does have occasional itching and will occasionally feels stuffed crawling on her. She denies any fever or chills. Denies any drainage from the eyes. Patient denies any recent rash, shortness breath, chest pain, abdominal pain, nausea, vomiting, diarrhea, constipation, back pain, numbness, tingling, dizziness, weakness, hematuria, dysuria, urinary urgency, urinary frequency, headache, visual changes, or any other complaints. - Related Data Home Medications Medication Instructions Recorded Confirmed ALPRAZolam 1 mg PO QID PRN 08/09/14 02/25/19 Carvedilol 6.25 mg PO BID 08/09/14 02/25/19 Losartan Potassium 25 mg PO QAM 08/09/14 02/25/19 Simvastatin 20 mg PO HS 08/09/14 02/25/19 Spironolactone [Aldactone] 25 mg PO BID 08/09/14 02/25/19 hydrOXYzine PAMOATE [Vistaril] 100 mg PO TID PRN 08/09/14 02/25/19 Furosemide [Lasix] 40 mg PO DAILY 09/28/16 02/25/19 traMADol HCL [Ultram] 50 mg PO Q8HR PRN 09/28/16 02/25/19 Albuterol Inhaler [Ventolin Hfa 1 - 2 puff INHALATION RT-Q6H PRN 02/10/18 02/25/19 Inhaler] Ergocalciferol [Vitamin D2] 50,000 unit PO MO 02/10/18 02/25/19 Levothyroxine Sodium [Synthroid] 112 mcg PO DAILY 02/10/18 02/25/19 PARoxetine HCL 40 mg PO DAILY 02/10/18 02/25/19 Umeclidinium [place] [Incruse 1 puff INHALATION RT-DAILY 02/10/18 02/25/19 Ellipta] Potassium Chloride ER [K-Dur 10] 10 meq PO DAILY 02/25/19 02/25/19 Previous Rx's Medication Instructions Recorded Clotrimazole Cream [Lotrimin Cream] 1 applic TOPICAL BID #60 gm 07/16/19 Hydrocortisone Cream 1 applic TOPICAL BID #60 gm 07/16/19 [Hydrocortisone 1% Cream] methylPREDNISolone Dose Pack 4 mg PO DIRECTED #21 package 07/16/19 [Medrol Dose Pack] Loratadine [Claritin] 10 mg PO DAILY #30 tablet 08/19/19 Permethrin 5% Cream [Elimite] 1 applic TOPICAL ONCE #1 bottle 08/19/19 Allergies Allergy/AdvReac Type Severity Reaction Status Date / Time elastic Allergy Rash/Hives Uncoded 08/19/19 18:07 Review of Systems ROS Statement: Those systems with pertinent positive or pertinent negative responses have been documented in the HPI. ROS Other: All systems not noted in ROS Statement are negative. Past Medical History Past Medical History: COPD, GERD/Reflux, Rheumatoid Arthritis (RA), Sleep Apnea/CPAP/BIPAP, Thyroid Disorder Additional Past Medical History / Comment(s): USES C-PAP MACHINE, STATES HX OF STOMACH ULCERS, SEE DR HALLMAN'S H&P History of Any Multi-Drug Resistant Organisms: None Reported Past Surgical History: AICD, Heart Catheterization, Pacemaker Additional Past Surgical History / Comment(s): defibilator Past Anesthesia/Blood Transfusion Reactions: No Reported Reaction, Motion Sickness Type of Cardiac Device: AICD Device Placement Date:: UNKNOWN Past Psychological History: Anxiety, Depression Smoking Status: Current every day smoker Past Alcohol Use History: None Reported Past Drug Use History: None Reported - Past Family History Mother Family Medical History: No Reported History General Exam Limitations: no limitations General appearance: alert, in no apparent distress, other (This is a well- developed, well-nourished, nontoxic-appearing adult female patient in no acute distress. Vital signs upon presentation are pulse 72, respirations 18, blood pressure 113/56, pulse ox 96% on room air.) Course Vital Signs 08/19/19 18:01 Temperature 75 F L Pulse Rate 72 Respiratory 18 Rate Blood Pressure 113/56 O2 Sat by Pulse 96 Oximetry Medical Decision Making - Medical Decision Making 64-year-old female patient presents to the emergency department today for evaluation of possible bed bugs. Patient is reporting bilateral itchy puffy eyes. Physical examination is unremarkable. There is no conjunctival injection. There is mild puffiness to the upper or lower lid. Patient did have a bedbug on her person upon arrival, she was showered and her belongings were bagged. We will discharge her with Claritin for possible ALLERGIES. She is instructed to follow-up with her primary care physician for recheck in 1-2 days. Return parameters were discussed in detail. She verbalizes understanding and agrees with this plan. Disposition Clinical Impression: Allergic conjunctivitis, Infestation by bed bug Disposition: HOME SELF-CARE Condition: Good Instructions (If sedation given, give patient instructions): Ketotifen (Into the eye), Bed Bugs (ED), Conjunctivitis (ED) Additional Instructions: Take medications as directed. Follow-up with the primary care physician for recheck in 1-2 days. Return to the emergency department immediately for any new, worsening, or concerning symptoms. Prescriptions: Loratadine [Claritin] 10 mg PO DAILY #30 tablet Permethrin 5% Cream [Elimite] 1 applic TOPICAL ONCE #1 bottle Is patient prescribed a controlled substance at d/c from ED?: No Referrals: Aniya Salamanca MD [Primary Care Provider] - 1-2 days Time of Disposition: 18:47
[2019-08-19 19:25] VITALS: BP 102/56; PULSE 74; RESP 17; TEMP 98
== END 2019-08-19 19:24 | disposition home or self-care (01) ==
LOC: EC 17:33
DX: H10.13 Acute atopic conjunctivitis, bilateral (principal); B88.8 Other specified infestations; J44.9 Chronic obstructive pulmonary disease, unspecified; M06.9 Rheumatoid arthritis, unspecified; E07.9 Disorder of thyroid, unspecified; G47.30 Sleep apnea, unspecified; F32.9 Major depressive disorder, single episode, unspecified; F41.9 Anxiety disorder, unspecified; F17.200 Nicotine dependence, unspecified, uncomplicated; Z91.09 Other allergy status, other than to drugs and biological substances; Z79.890 Hormone replacement therapy; Z79.899 Other long term (current) drug therapy; Z99.89 Dependence on other enabling machines and devices
CPT/HCPCS: 99283

== ENCOUNTER → 2019-12-29 | Outpatient (CLI) | payer OTHER ==
[2019-12-29 11:26] LABS: Anisocytosis Slight; Basophils % (A) 1 %; Eosinophils # (A) 0.2 k/uL (0-0.7); Eosinophils % (A) 2 %; HCT 38.9 % (34.0-46.0); HGB 12.4 gm/dL (11.4-16.0); Hypochromasia Moderate; Lymphocytes # (A) 2.1 k/uL (1.0-4.8); Lymphocytes % (A) 26 %; MCH 26.5 pg (25.0-35.0); MCHC 31.8 g/dL (31.0-37.0); MCV 83.2 fL (80.0-100.0); Monocytes # (A) 0.6 k/uL (0-1.0); Monocytes % (A) 7 %; Neutrophils # (A) 4.9 k/uL (1.3-7.7); Neutrophils % (A) 61 %; Platelet Count 397 k/uL (150-450); RBC 4.68 m/uL (3.80-5.40); RDW 16.3 % (11.5-15.5)
[2019-12-29 16:04] LABS: ALT 15 U/L (8-44); AST 20 U/L (13-35)
[2019-12-29 17:48] LABS: Hepatitis A Antibody IgM Non-Reactive (Non-Reactive); Hepatitis B Core IgM Non-Reactive (Non-Reactive); Hepatitis B Surface Antigen Non-Reactive (Non-Reactive); Hepatitis C IgG Antibody Non-Reactive (Non-Reactive)
== END | disposition home or self-care (01) ==
LOC: LABWHC1 10:12
PROVIDERS: ATTEND Nurse Practitioner Family
DX: L20.89 Other atopic dermatitis (principal)
CPT/HCPCS: 36415; 80074; 84450; 84460; 85025; 86480

== ENCOUNTER → 2020-06-10 | Outpatient (CLI) | payer OTHER ==
[2020-06-10 13:49] LABS: Basophils # (A) 0.1 k/uL (0-0.2); Basophils % (A) 1 %; Eosinophils # (A) 0.2 k/uL (0-0.7); Eosinophils % (A) 2 %; HGB 11.3 gm/dL (11.4-16.0); Hypochromasia Moderate; Lymphocytes # (A) 2.7 k/uL (1.0-4.8); Lymphocytes % (A) 22 %; MCH 26.3 pg (25.0-35.0); MCHC 32.3 g/dL (31.0-37.0); MCV 81.4 fL (80.0-100.0); Mean Platelet Volume 7.2; Monocytes # (A) 0.8 k/uL (0-1.0); Monocytes % (A) 6 %; Neutrophils # (A) 8.3 k/uL (1.3-7.7); Neutrophils % (A) 67 %; Platelet Count 343 k/uL (150-450); RBC 4.31 m/uL (3.80-5.40); RDW 15.5 % (11.5-15.5); WBC 12.4 k/uL (3.8-10.6)
[2020-06-10 14:36] LABS: Appearance,Urine Clear (Clear); Bacteria,Urine Rare /hpf; Bilirubin,Urine Negative (Negative); Blood,Urine Negative (Negative); Color,Urine Light Yellow; Glucose,Urine (UA) Negative (Negative); Ketones,Urine Negative (Negative); Leukocyte Esterase,Urine Large (Negative); Mucus,Urine Rare /hpf; Nitrite,Urine Negative (Negative); Protein,Urine Negative (Negative); RBC,Urine 2 /hpf (0-5); Specific Gravity,Urine 1.008 (1.001-1.035); Squamous Epithelial Cell,Urine 10 /hpf (0-4); Urobilinogen,Urine <2.0 mg/dL (<2.0); WBC,Urine 6 /hpf (0-5)
[2020-06-11 00:45] LABS: African American GFR (CKD) 78.9 (60.0-200.0); Albumin 4.5 g/dL (3.80-4.90); Albumin/Globulin Ratio 2.05 (1.60-3.17); Anion Gap 9.4 mmol/L (4.00-12.00); BUN/Creat Ratio 14.44 Ratio (12.00-20.00); Calcium 9.2 mg/dL (8.7-10.3); Carbon Dioxide 29.6 mmol/L (21.6-31.8); Globulin 2.2 g/dL (1.6-3.3); Potassium 3.9 mmol/L (3.5-5.5); Total Bilirubin 0.4 mg/dL (0.3-1.2); Total Protein 6.7 g/dL (6.2-8.2)
== END | disposition home or self-care (01) ==
LOC: LABWHC1 13:10
PROVIDERS: ATTEND Physician Assistant
DX: L21.9 Seborrheic dermatitis, unspecified (principal); L29.9 Pruritus, unspecified; L85.3 Xerosis cutis
CPT/HCPCS: 36415; 80053; 81001; 84439; 84443; 85025

== ENCOUNTER 2020-10-06 15:06 | Emergency (ER) | payer OTHER ==
[2020-10-06 15:13] VITALS: BP 127/82; PULSE 79; RESP 18; TEMP 98
--- NOTE | 2020-10-06 15:57 | ED ---
Eye Problem HPI - General Chief complaint: Eye Problems Stated complaint: eye infection Time Seen by Provider: 10/06/20 15:35 Source: patient Mode of arrival: ambulatory Limitations: no limitations - History of Present Illness Initial comments: Patient is a 65-year-old female presenting to emergency Department with complaints of bilateral eye itching and thought she might have an eye infection. Patient states she's been to 2 separate doctors who prescribed her with some drops, antibiotic ointment as well as some steroids for her eyes without improv ement. She denies any blurry vision, no headaches. She does admit to clear to yellowish drainage intermittently throughout the day, no redness to the eyes. She states she feels like there is redness surrounding her eyes. She describes the eye discomfort is itching, no sharp pains. No black spots. She has no further complaints at this time. - Related Data Home Medications Medication Instructions Recorded Confirmed ALPRAZolam 1 mg PO QID PRN 08/09/14 02/25/19 Carvedilol 6.25 mg PO BID 08/09/14 02/25/19 Losartan Potassium 25 mg PO QAM 08/09/14 02/25/19 Simvastatin 20 mg PO HS 08/09/14 02/25/19 Spironolactone [Aldactone] 25 mg PO BID 08/09/14 02/25/19 hydrOXYzine pamoate [Vistaril] 100 mg PO TID PRN 08/09/14 02/25/19 Furosemide [Lasix] 40 mg PO DAILY 09/28/16 02/25/19 traMADol HCL [Ultram] 50 mg PO Q8HR PRN 09/28/16 02/25/19 Albuterol Inhaler (Mhu) [Ventolin 1 - 2 puff INHALATION RT-Q6H PRN 02/10/18 02/25/19 Hfa Inhaler] Ergocalciferol [Vitamin D2] 50,000 unit PO MO 02/10/18 02/25/19 Levothyroxine Sodium [Synthroid] 112 mcg PO DAILY 02/10/18 02/25/19 PARoxetine HCL 40 mg PO DAILY 02/10/18 02/25/19 Umeclidinium [place] [Incruse 1 puff INHALATION RT-DAILY 02/10/18 02/25/19 Ellipta] Potassium Chloride ER [K-Dur 10] 10 meq PO DAILY 02/25/19 02/25/19 Previous Rx's Medication Instructions Recorded Clotrimazole Cream [Lotrimin Cream] 1 applic TOPICAL BID #60 gm 07/16/19 Hydrocortisone Cream 1 applic TOPICAL BID #60 gm 07/16/19 [Hydrocortisone 1% Cream] methylPREDNISolone Dose Pack 4 mg PO DIRECTED #21 package 07/16/19 [Medrol Dose Pack] Loratadine [Claritin] 10 mg PO DAILY #30 tablet 08/19/19 Permethrin 5% Cream [Elimite] 1 applic TOPICAL ONCE #1 bottle 08/19/19 Azelastine HCl [Optivar 0.05% 1 drop BOTH EYES BID 5 Days #1 10/06/20 Ophth Soln] bottle Allergies Allergy/AdvReac Type Severity Reaction Status Date / Time elastic Allergy Rash/Hives Uncoded 10/06/20 15:13 Review of Systems ROS Statement: Those systems with pertinent positive or pertinent negative responses have been documented in the HPI. ROS Other: All systems not noted in ROS Statement are negative. Past Medical History Past Medical History: COPD, GERD/Reflux, Rheumatoid Arthritis (RA), Sleep Apnea/CPAP/BIPAP, Thyroid Disorder Additional Past Medical History / Comment(s): USES C-PAP MACHINE, STATES HX OF S TOMACH ULCERS, SEE DR HALLMAN'S H&P History of Any Multi-Drug Resistant Organisms: None Reported Past Surgical History: AICD, Heart Catheterization, Pacemaker Additional Past Surgical History / Comment(s): defibilator Past Anesthesia/Blood Transfusion Reactions: No Reported Reaction, Motion Sickness Type of Cardiac Device: AICD Device Placement Date:: UNKNOWN Past Psychological History: Anxiety, Depression Past Alcohol Use History: None Reported Past Drug Use History: None Reported - Past Family History Mother Family Medical History: No Reported History General Exam - General Exam Comments Initial Comments: GENERAL: Patient is well-developed and well-nourished. Patient is nontoxic and in no acute distress. HEAD: Atraumatic, normocephalic. EYES: Pupils equal round and reactive to light, extraocular movements intact, sclera anicteric, conjunctiva are normal. Eyelids were unremarkable. No active drainage. Surrounding erythema. ENT: TMs normal, nares patent, oropharynx clear without exudates. Moist mucous membranes. NECK: Normal range of motion, supple without lymphadenopathy or JVD. LUNGS: Unlabored respirations. Breath sounds clear to auscultation bilaterally and equal. No wheezes rales or rhonchi. HEART: Regular rate and rhythm without murmurs, rubs or gallops. ABDOMEN: Soft, nontender, normoactive bowel sounds. No guarding, no rebound. No masses appreciated. : Deferred MUSCULOSKELETAL: Normal extremities with adequate strength and normal range of motion, no pitting or edema. No clubbing or cyanosis. NEUROLOGICAL: Patient is alert and oriented x 3. Normal speech, normal gait. PSYCH: Normal mood, normal affect. SKIN: Warm, Dry, normal turgor, no rashes or lesions noted. Limitations: no limitations Course Vital Signs 10/06/20 15:08 Temperature 98.0 F Pulse Rate 79 Respiratory 18 Rate Blood Pressure 127/82 O2 Sat by Pulse 98 Oximetry Medical Decision Making - Medical Decision Making Patient is a 65-year-old female here with complaints of bilateral eye itching that has been going on for 2-3 months. No blurry vision, no black spots, no eye pain. Her exam is unremarkable, there is no injection, no active drainage, no surrounding erythema. I discussed with patient that her symptoms could be related to ALLERGIES. I will give her some eyedrops. Recommend following up with her eye doctor. Patient is stable for discharge. Patient is in agreement with this plan of care. Return parameters were discussed with the patient and they verbalized understanding. Case discussed with Dr. Cruz. Disposition Clinical Impression: Pruritus of both eyes Disposition: HOME SELF-CARE Condition: Stable Instructions (If sedation given, give patient instructions): Conjunctivitis (ED) Additional Instructions: Please return to the Emergency Department if symptoms worsen or any other concerns. Use eyedrops as prescribed. Follow-up with your eye doctor if symptoms persist. Prescriptions: Azelastine HCl [Optivar 0.05% Ophth Soln] 1 drop BOTH EYES BID 5 Days #1 bottle Is patient prescribed a controlled substance at d/c from ED?: No Referrals: Aniya Salamanca MD [Primary Care Provider] - 1-2 days
== END 2020-10-06 16:30 | disposition home or self-care (01) ==
LOC: EC 15:06
DX: L29.9 Pruritus, unspecified (principal); J44.9 Chronic obstructive pulmonary disease, unspecified; K21.9 Gastro-esophageal reflux disease without esophagitis; F32.9 Major depressive disorder, single episode, unspecified; F41.9 Anxiety disorder, unspecified
CPT/HCPCS: 99283

== ENCOUNTER 2020-12-12 17:34 | Emergency (ER) | payer OTHER ==
[2020-12-12 18:02] VITALS: BP 129/69; PULSE 56; RESP 20; TEMP 98.3
--- NOTE | 2020-12-12 19:56 | ED ---
Eye Problem HPI - General Chief complaint: Eye Problems Stated complaint: Swollen Eyes Time Seen by Provider: 12/12/20 19:39 Source: patient Mode of arrival: ambulatory Limitations: no limitations - History of Present Illness Initial comments: Patient is a 65-year-old female presenting to the emergency Department with complaints of bilateral itchy eyes that been going on for months now. Patient was seen in September for similar complaint. 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 She denies any fevers or chills, no yellowish drainage, her drainage is clear. No foreign bodies in the eyes. No changes in her vision,can I pain. She has no further complaints. - Related Data Home Medications Medication Instructions Recorded Confirmed ALPRAZolam 1 mg PO QID PRN 08/09/14 02/25/19 Carvedilol 6.25 mg PO BID 08/09/14 02/25/19 Losartan Potassium 25 mg PO QAM 08/09/14 02/25/19 Simvastatin 20 mg PO HS 08/09/14 02/25/19 Spironolactone [Aldactone] 25 mg PO BID 08/09/14 02/25/19 hydrOXYzine pamoate [Vistaril] 100 mg PO TID PRN 08/09/14 02/25/19 Furosemide [Lasix] 40 mg PO DAILY 09/28/16 02/25/19 traMADol HCL [Ultram] 50 mg PO Q8HR PRN 09/28/16 02/25/19 Albuterol Inhaler (Mhu) [Ventolin 1 - 2 puff INHALATION RT-Q6H PRN 02/10/18 02/25/19 Hfa Inhaler] Ergocalciferol [Vitamin D2] 50,000 unit PO MO 02/10/18 02/25/19 Levothyroxine Sodium [Synthroid] 112 mcg PO DAILY 02/10/18 02/25/19 PARoxetine HCL 40 mg PO DAILY 02/10/18 02/25/19 Umeclidinium [place] [Incruse 1 puff INHALATION RT-DAILY 02/10/18 02/25/19 Ellipta] Potassium Chloride ER [K-Dur 10] 10 meq PO DAILY 02/25/19 02/25/19 Previous Rx's Medication Instructions Recorded Clotrimazole Cream [Lotrimin Cream] 1 applic TOPICAL BID #60 gm 07/16/19 Hydrocortisone Cream 1 applic TOPICAL BID #60 gm 07/16/19 [Hydrocortisone 1% Cream] methylPREDNISolone Dose Pack 4 mg PO DIRECTED #21 package 07/16/19 [Medrol Dose Pack] Loratadine [Claritin] 10 mg PO DAILY #30 tablet 08/19/19 Permethrin 5% Cream [Elimite] 1 applic TOPICAL ONCE #1 bottle 08/19/19 Azelastine HCl [Optivar 0.05% 1 drop BOTH EYES BID 5 Days #1 12/12/20 Ophth Soln] bottle Allergies Allergy/AdvReac Type Severity Reaction Status Date / Time elastic Allergy Rash/Hives Uncoded 12/12/20 18:01 Review of Systems ROS Statement: Those systems with pertinent positive or pertinent negative responses have been documented in the HPI. ROS Other: All systems not noted in ROS Statement are negative. Past Medical History Past Medical History: COPD, GERD/Reflux, Rheumatoid Arthritis (RA), Sleep Apnea/CPAP/BIPAP, Thyroid Disorder Additional Past Medical History / Comment(s): USES C-PAP MACHINE, STATES HX OF STOMACH ULCERS, SEE DR HALLMAN'S H&P History of Any Multi-Drug Resistant Organisms: None Reported Past Surgical History: AICD, Heart Catheterization, Pacemaker Additional Past Surgical History / Comment(s): defibilator Past Anesthesia/Blood Transfusion Reactions: No Reported Reaction, Motion Sickness Type of Cardiac Device: AICD Device Placement Date:: UNKNOWN Past Psychological History: Anxiety, Depression Smoking Status: Current every day smoker Past Alcohol Use History: None Reported Past Drug Use History: None Reported - Past Family History Mother Family Medical History: No Reported History General Exam - General Exam Comments Initial Comments: GENERAL: Patient is well-developed and well-nourished. Patient is nontoxic and in no acute distress. HEAD: Atraumatic, normocephalic. EYES: Pupils equal round and reactive to light, extraocular movements intact, sclera anicteric, conjunctiva are normal. Eyelids appear very mildly swollen. ENT: Nares patent, oropharynx clear without exudates. Moist mucous membranes. NECK: Normal range of motion, supple without lymphadenopathy or JVD. LUNGS: Unlabored respirations. Breath sounds clear to auscultation bilaterally and equal. No wheezes rales or rhonchi. HEART: Regular rate and rhythm without murmurs, rubs or gallops. ABDOMEN: Soft, nontender, normoactive bowel sounds. No guarding, no rebound. No masses appreciated. : Deferred MUSCULOSKELETAL: Normal extremities with adequate strength and normal range of motion, no pitting or edema. No clubbing or cyanosis. NEUROLOGICAL: Patient is alert and oriented x 3. Motor and sensory are also intact. Cranial nerves II through XII grossly intact. Symmetrical smile. Normal speech, normal gait. PSYCH: Normal mood, normal affect. SKIN: Warm, Dry, normal turgor, no rashes or lesions noted. Limitations: no limitations Course Vital Signs 12/12/20 17:59 Temperature 98.3 F Pulse Rate 56 L Respiratory 20 Rate Blood Pressure 129/69 O2 Sat by Pulse 98 Oximetry Medical Decision Making - Medical Decision Making Patient is a 65-year-old female here for bilateral eye itchiness for the past few months. She was seen in here in September for similar complaint. 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 Patient's exam is unremarkable except for some very mild swelling surrounding her eyes, appears to be a very mild case of ALLERGIC conjunctivitis. Patient will be scribed eyedrops. She'll follow-up with her eye doctor. She is in agreement with this plan of care and she is stable for discharge. Disposition Clinical Impression: Allergic conjunctivitis Disposition: HOME SELF-CARE Condition: Stable Instructions (If sedation given, give patient instructions): Conjunctivitis (ED) Additional Instructions: Please return to the Emergency Department if symptoms worsen or any other concerns. Use eyedrops as prescribed. Follow-up with your eye doctor. Prescriptions: Azelastine HCl [Optivar 0.05% Ophth Soln] 1 drop BOTH EYES BID 5 Days #1 bottle Is patient prescribed a controlled substance at d/c from ED?: No Referrals: Aniya Salamanca MD [Primary Care Provider] - 1-2 days Time of Disposition: 19:55
== END 2020-12-12 20:19 | disposition home or self-care (01) ==
LOC: EC 17:34
DX: H10.13 Acute atopic conjunctivitis, bilateral (principal); F32.9 Major depressive disorder, single episode, unspecified; F41.9 Anxiety disorder, unspecified; J44.9 Chronic obstructive pulmonary disease, unspecified; F17.200 Nicotine dependence, unspecified, uncomplicated; K21.9 Gastro-esophageal reflux disease without esophagitis; M06.9 Rheumatoid arthritis, unspecified; G47.33 Obstructive sleep apnea (adult) (pediatric); E07.9 Disorder of thyroid, unspecified; Z99.81 Dependence on supplemental oxygen
CPT/HCPCS: 99283

== ENCOUNTER 2021-05-03 14:37 | Emergency (ER) | payer OTHER ==
[2021-05-03 15:12] VITALS: BP 100/61; PULSE 74; RESP 20; TEMP 97.8
[2021-05-03] MEDS ORDERED: predniSONE 20 MG TAB PO STA (17:26)
[2021-05-03] MEDS ORDERED: diphenhydrAMINE 50 MG CAP PO STA (17:27)
[2021-05-03] MEDS ORDERED: FAMOTIDINE 20 MG TAB PO STA (17:28)
--- NOTE | 2021-05-03 17:31 | ED ---
Allergic Reaction HPI - General Chief complaint: Allergic Reaction Stated complaint: Allergic Reaction Time Seen by Provider: 05/03/21 17:01 Source: patient Mode of arrival: ambulatory Limitations: no limitations - History of Present Illness Initial Comments: 66-year-old female is status post cataract surgery on the who presents emergency Department with reported rash to the left side of her face. The patient was instructed to use adhesive tape and gauze to patch the left eye post surgery. Patient developed redness above and below the eye where the tape was present. Patient continued to use the tape and the swelling. Get worse. States she last used this morning. She did place triple antibiotic ointment to the site given to the emergency room for evaluation. Denies previous history of ALLERGY to the tape before. Denies any additional new exposures. Patient states the rash is very itchy. Denies any visual changes. No eye swelling, visual changes or redness. No eye discharge. Patient has been using her ketoralac, prednisilone and antibioitic eye drops as directed. No other alleviating, precipitating or modyifying factors. - Related Data Home Medications Medication Instructions Recorded Confirmed ALPRAZolam 1 mg PO QID PRN 08/09/14 02/25/19 Carvedilol 6.25 mg PO BID 08/09/14 02/25/19 Losartan Potassium 25 mg PO QAM 08/09/14 02/25/19 Simvastatin 20 mg PO HS 08/09/14 02/25/19 Spironolactone [Aldactone] 25 mg PO BID 08/09/14 02/25/19 hydrOXYzine pamoate [Vistaril] 100 mg PO TID PRN 08/09/14 02/25/19 Furosemide [Lasix] 40 mg PO DAILY 09/28/16 02/25/19 traMADol HCL [Ultram] 50 mg PO Q8HR PRN 09/28/16 02/25/19 Albuterol Inhaler (Mhu) [Ventolin 1 - 2 puff INHALATION RT-Q6H PRN 02/10/18 02/25/19 Hfa Inhaler] Ergocalciferol [Vitamin D2] 50,000 unit PO MO 02/10/18 02/25/19 Levothyroxine Sodium [Synthroid] 112 mcg PO DAILY 02/10/18 02/25/19 PARoxetine HCL 40 mg PO DAILY 02/10/18 02/25/19 Umeclidinium [place] [Incruse 1 puff INHALATION RT-DAILY 02/10/18 02/25/19 Ellipta] Potassium Chloride ER [K-Dur 10] 10 meq PO DAILY 02/25/19 02/25/19 Previous Rx's Medication Instructions Recorded Clotrimazole Cream [Lotrimin Cream] 1 applic TOPICAL BID #60 gm 07/16/19 Hydrocortisone Cream 1 applic TOPICAL BID #60 gm 07/16/19 [Hydrocortisone 1% Cream] methylPREDNISolone Dose Pack 4 mg PO DIRECTED #21 package 07/16/19 [Medrol Dose Pack] Loratadine [Claritin] 10 mg PO DAILY #30 tablet 08/19/19 Permethrin 5% Cream [Elimite] 1 applic TOPICAL ONCE #1 bottle 08/19/19 Azelastine HCl [Optivar 0.05% 1 drop BOTH EYES BID 5 Days #1 12/12/20 Ophth Soln] bottle diphenhydrAMINE & Zinc Cream 1 applic TOPICAL TID #28 gm 05/03/21 [Benadryl Cream] predniSONE [Deltasone] 20 mg PO BID #10 tab 05/03/21 Allergies Allergy/AdvReac Type Severity Reaction Status Date / Time elastic Allergy Rash/Hives Uncoded 05/03/21 15:12 Review of Systems ROS Statement: Those systems with pertinent positive or pertinent negative responses have been documented in the HPI. ROS Other: All systems not noted in ROS Statement are negative. Past Medical History Past Medical History: COPD, GERD/Reflux, Rheumatoid Arthritis (RA), Sleep Apnea/CPAP/BIPAP, Thyroid Disorder Additional Past Medical History / Comment(s): USES C-PAP MACHINE, STATES HX OF STOMACH ULCERS, SEE DR HALLMAN'S H&P History of Any Multi-Drug Resistant Organisms: None Reported Past Surgical History: AICD, Heart Catheterization, Pacemaker Additional Past Surgical History / Comment(s): defibilator, bilateral cateract 04/2021 Past Anesthesia/Blood Transfusion Reactions: No Reported Reaction, Motion Sickness Type of Cardiac Device: AICD Device Placement Date:: UNKNOWN Past Psychological History: Anxiety, Depression Smoking Status: Current every day smoker Past Alcohol Use History: None Reported Past Drug Use History: None Reported - Past Family History Mother Family Medical History: No Reported History General Exam Limitations: no limitations Course Vital Signs 05/03/21 15:06 Temperature 97.8 F Pulse Rate 74 Respiratory 20 Rate Blood Pressure 100/61 O2 Sat by Pulse 97 Oximetry Medical Decision Making - Medical Decision Making Upon arrival patient placed into the hallway 11. A thorough history and physical exam is performed. Patient instructed not to use the tape any longer. Seeing triple antibiotic ointment to the site. She was given a dose of prednisone, benadryl and pepcid in the emergency department. Patient will be discharged home on a course of steroids and Benadryl cream. Follow up with her primary care doctor in 2-4 days. Return to the emergency department for any new or worsening symptoms. Patient was discharged home in stable condition Disposition Clinical Impression: Allergic reaction Disposition: HOME SELF-CARE Condition: Stable Instructions (If sedation given, give patient instructions): General Allergic Reaction (ED) Additional Instructions: Stop using the tape. Take 25 mg of benadryl every 6 hours. Start taking the steroids on 06/04. Return to the ED for any new or worsening symptoms. Prescriptions: diphenhydrAMINE & Zinc Cream [Benadryl Cream] 1 applic TOPICAL TID #28 gm predniSONE [Deltasone] 20 mg PO BID #10 tab Is patient prescribed a controlled substance at d/c from ED?: No Referrals: Aniya Salamanca MD [Primary Care Provider] - 1-2 days Time of Disposition: 17:31
== END 2021-05-03 18:55 | disposition home or self-care (01) ==
LOC: EC 14:37
DX: L23.1 Allergic contact dermatitis due to adhesives (principal); J44.9 Chronic obstructive pulmonary disease, unspecified; K21.9 Gastro-esophageal reflux disease without esophagitis; E07.9 Disorder of thyroid, unspecified; F41.9 Anxiety disorder, unspecified; F32.9 Major depressive disorder, single episode, unspecified; F17.200 Nicotine dependence, unspecified, uncomplicated; Z95.0 Presence of cardiac pacemaker
CPT/HCPCS: 99282; J7512

== ENCOUNTER 2022-10-19 19:00 | Emergency (ER) | payer MEDICARE, OTHER ==
--- NOTE | 2022-10-19 19:01 | ED ---
General Adult HPI - General Source: RN notes reviewed <Donna Omalley - Last Filed: 10/19/22 19:01> - General Source: patient, RN notes reviewed Mode of arrival: ambulatory Limitations: no limitations <Stephanie Salinas - Last Filed: 10/19/22 22:05> - General Stated complaint: throat pain Time Seen by Provider: 10/19/22 19:01 - History of Present Illness Initial comments: 67-year-old female presents emergency department with a chief complaint of a sore throat. (Donna Omalley) 67 year old female presents to the emergency department with chief complaint of sore throat. She states that she has been dealing with this for 5 months. She had some period of relief but it has been back for about 4 weeks. She reports painful swallowing of liquids for the past 4 days. She states that she takes an inhaler for COPD and has been diagnosed with thrush for which she has been taking nystatin. She states that she feels like she has had a fever every evening for the past 4 weeks but she has not taken her temperature. Patient is a current smoker. Denies nausea, vomiting. (Stephanie Salinas) - Related Data Home Medications Medication Instructions Recorded Confirmed ALPRAZolam 1 mg PO QID PRN 08/09/14 02/25/19 Losartan Potassium 25 mg PO QAM 08/09/14 02/25/19 Simvastatin 20 mg PO HS 08/09/14 02/25/19 Spironolactone [Aldactone] 25 mg PO BID 08/09/14 02/25/19 carvediloL [Carvedilol] 6.25 mg PO BID 08/09/14 02/25/19 hydrOXYzine pamoate [Vistaril] 100 mg PO TID PRN 08/09/14 02/25/19 Furosemide [Lasix] 40 mg PO DAILY 09/28/16 02/25/19 traMADol HCL [Ultram] 50 mg PO Q8HR PRN 09/28/16 02/25/19 Albuterol Inhaler [Ventolin Hfa 1 - 2 puff INHALATION RT-Q6H PRN 02/10/18 02/25/19 Inhaler] Ergocalciferol [Vitamin D2] 50,000 unit PO MO 02/10/18 02/25/19 Levothyroxine Sodium [Synthroid] 112 mcg PO DAILY 02/10/18 02/25/19 PARoxetine HCL 40 mg PO DAILY 02/10/18 02/25/19 Umeclidinium [place] [Incruse 1 puff INHALATION RT-DAILY 02/10/18 02/25/19 Ellipta] Potassium Chloride ER [K-Dur 10] 10 meq PO DAILY 02/25/19 02/25/19 Previous Rx's Medication Instructions Recorded Clotrimazole Cream [Lotrimin Cream] 1 applic TOPICAL BID #60 gm 07/16/19 Hydrocortisone Cream 1 applic TOPICAL BID #60 gm 07/16/19 [Hydrocortisone 1% Cream] methylPREDNISolone Dose Pack 4 mg PO DIRECTED #21 package 07/16/19 [Medrol Dose Pack] Loratadine [Claritin] 10 mg PO DAILY #30 tablet 08/19/19 Permethrin 5% Cream [Elimite] 1 applic TOPICAL ONCE #1 bottle 08/19/19 Azelastine HCl [Optivar 0.05% 1 drop BOTH EYES BID 5 Days #1 12/12/20 Ophth Soln] bottle diphenhydrAMINE & Zinc Cream 1 applic TOPICAL TID #28 gm 05/03/21 [Benadryl Cream] predniSONE [Deltasone] 20 mg PO BID #10 tab 05/03/21 Allergies Allergy/AdvReac Type Severity Reaction Status Date / Time elastic Allergy Rash/Hives Uncoded 10/19/22 19:37 Review of Systems ROS Other: All systems not noted in ROS Statement are negative. <Donna Omalley - Last Filed: 10/19/22 19:01> ROS Other: All systems not noted in ROS Statement are negative. <Stephanie Salinas - Last Filed: 10/19/22 22:05> ROS Statement: Those systems with pertinent positive or pertinent negative responses have been documented in the HPI. Past Medical History Past Medical History: COPD, GERD/Reflux, Rheumatoid Arthritis (RA), Sleep Apnea/CPAP/BIPAP, Thyroid Disorder Additional Past Medical History / Comment(s): USES C-PAP MACHINE, STATES HX OF STOMACH ULCERS, SEE DR HALLMAN'S H&P History of Any Multi-Drug Resistant Organisms: None Reported Past Surgical History: AICD, Heart Catheterization, Pacemaker Additional Past Surgical History / Comment(s): defibilator, bilateral cateract 04/2021 Past Anesthesia/Blood Transfusion Reactions: No Reported Reaction, Motion Sickness Type of Cardiac Device: AICD Device Placement Date:: UNKNOWN Past Psychological History: Anxiety, Depression Smoking Status: Current every day smoker Past Alcohol Use History: None Reported Past Drug Use History: None Reported - Past Family History Mother Family Medical History: No Reported History <Donna Omalley - Last Filed: 10/19/22 19:01> General Exam <Donna Omalley - Last Filed: 10/19/22 19:01> General appearance: alert, in no apparent distress Head exam: Present: atraumatic, normocephalic, normal inspection ENT exam: Present: mucous membranes moist, normal external ear exam. Absent: normal oropharynx (mild thrush on tongue and oropharynx ) Neck exam: Present: normal inspection, tenderness (tenderness at angle of the mandible bilaterally, no palpable lymphadenopathy). Absent: meningismus, lymphadenopathy Respiratory exam: Present: normal lung sounds bilaterally. Absent: respiratory distress, wheezes, rales, rhonchi, stridor Cardiovascular Exam: Present: regular rate, normal rhythm, normal heart sounds. Absent: systolic murmur, diastolic murmur, rubs, gallop, clicks Skin exam: Present: warm, dry, intact, normal color. Absent: rash <Stephanie Salinas - Last Filed: 10/19/22 22:05> - General Exam Comments Initial Comments: Visual Physical Exam Vital signs reviewed General: Well-appearing, nontoxic, no acute distress. Head: Normocephalic, atraumatic Eyes: PERRLA, EOMI ENT: Airway patent Chest: Nonlabored breathing Skin: No visual rash, normal skin tone Neuro: Alert and oriented 3 Musculoskeletal: No gross abnormalities (Donna Omalley) Course Vital Signs 10/19/22 10/19/22 19:32 20:42 Temperature 98.0 F 98.3 F Pulse Rate 82 73 Respiratory 18 18 Rate Blood Pressure 110/74 122/82 O2 Sat by Pulse 96 98 Oximetry Medical Decision Making <Stephanie Salinas - Last Filed: 10/19/22 22:05> - Medical Decision Making Was pt. sent in by a medical professional or institution (, PA, ELECTRICIAN SUBSTATION SUPERVISOR, urgent care, hospital, or long-term...) When possible be specific @ -No Did you speak to anyone other than the patient for history (EMS, parent, family, police, friend...)? What history was obtained from this source @ -No Did you review nursing and triage notes (agree or disagree)? Why? @ -I reviewed and agree with nursing and triage notes Were old charts reviewed (outside hosp., previous admission, EMS record, old EKG, old radiological studies, urgent care reports/EKG's, long-term records)? Report findings @ -No old charts were reviewed Differential Diagnosis (chest pain, altered mental status, abdominal pain women, abdominal pain men, vaginal bleeding, weakness, fever, dyspnea, syncope, headache, dizziness, GI bleed, back pain, seizure, CVA, palpatations, mental health, musculoskeletal)? @ -strep pharyngitis, covid, influenza, retropharyngeal abscess, malignancy, this list is not all inclusive EKG interpreted by me (3pts min.). @ -None X-rays interpreted by me (1pt min.). @ -X-ray soft tissue neck showed patent airway, normal epiglottis, no retropharyngeal abscess X-ray chest showed no acute cardiopulmonary process CT interpreted by me (1pt min.). @ -None done U/S interpreted by me (1pt. min.). @ -None done What testing was considered but not performed or refused? (CT, X-rays, U/S, labs)? Why? @ -None What meds were considered but not given or refused? Why? @ -None Did you discuss the management of the patient with other professionals (professionals i.e. , PA, ELECTRICIAN SUBSTATION SUPERVISOR, lab, RT, psych nurse, school social worker, compliance professional, teacher, lodge officer, immigration case worker)? Give summary @ -No Was smoking cessation discussed for >3mins.? @ -No Was critical care preformed (if so, how long)? @ -No Were there social determinants of health that impacted care today? How? (Homelessness, low income, unemployed, alcoholism, drug addiction, transportation, low edu. Level, literacy, decrease access to med. care, skilled nursing, rehab)? @ -No Was there de-escalation of care discussed even if they declined (Discuss DNR or withdrawal of care, Hospice)? DNR status @ -No What co-morbidities impacted this encounter? (DM, HTN, Smoking, COPD, CAD, Cancer, CVA, ARF, Chemo, Hep., AIDS, mental health diagnosis, sleep apnea, morbid obesity)? @ -None Was patient admitted / discharged? Hospital course, mention meds given and route, prescriptions, significant lab abnormalities, going to OR and other pertinent info. @ -discharged. patient presented with sore throat worsening x4 days. Covid, influenza, RSV negative. Strep test negative. X-ray soft tissue neck WNL, x-ray chest WNL. viscous lidocaine swish and spit administered which provided some relief. Recommend ENT follow up. Patient discharged in stable condition. Undiagnosed new problem with uncertain prognosis? @ -No Drug Therapy requiring intensive monitoring for toxicity (Heparin, Nitro, Insulin, Cardizem)? @ -No Were any procedures done? @ -No Diagnosis/symptom? @ -Sore throat Acute, or Chronic, or Acute on Chronic? @ -acute Uncomplicated (without systemic symptoms) or Complicated (systemic symptoms)? @ -uncomplicated Side effects of treatment? @ -No Exacerbation, Progression, or Severe Exacerbation? @ -No Poses a threat to life or bodily function? How? (Chest pain, [place], [place], pneumonia, PE, COPD, DKA, ARF, appy, cholecystitis, CVA, Diverticulitis, Homicidal, Suicidal, threat to staff... and all critical care pts) @ -No (Stephanie Salinas) - Lab Data Lab Results 10/19/22 10/19/22 Range/Units 19:37 19:37 Influenza Type A (PCR) Not Detected (Not Detectd) Influenza Type B (PCR) Not Detected (Not Detectd) RSV (PCR) Not Detected (Not Detectd) SARS-CoV-2 (PCR) Not Detected (Not Detectd) Group A Strep (PCR) NOT DETECTED (Not Detectd) Disposition <Donna Omalley - Last Filed: 10/19/22 19:01> Is patient prescribed a controlled substance at d/c from ED?: No Time of Disposition: 22:05 <Stephanie Salinas - Last Filed: 10/19/22 22:05> Clinical Impression: Sore throat Disposition: HOME SELF-CARE Condition: Stable Instructions (If sedation given, give patient instructions): Pharyngitis (ED) Additional Instructions: Follow-up with ENT. Please return to the Emergency Department if symptoms worsen or any other concerns. Referrals: Aniya Salamanca MD [Primary Care Provider] - 1-2 days Lamberto Williamson DO [Doctor of Osteopathic Medicine] - 1-2 days
[2022-10-19] MEDS ORDERED: LIDOCAINE VISCOUS 2% 15 ML CUP MUCOUS MEM ONE (20:58)
--- NOTE | 2022-10-19 21:44 | XR ---
EXAMINATION TYPE: XR chest 2V DATE OF EXAM: 10/19/2022 COMPARISON: 10/23/2017 HISTORY: Shortness of breath TECHNIQUE: Frontal and lateral views of the chest are obtained. FINDINGS: Scattered senescent parenchymal changes noted. Hyperinflation compatible with COPD. No evidence for infiltrate. No evidence for atelectasis. Heart size is stable. Mediastinal structures are stable and grossly unremarkable. No evidence for hilar prominence. Degenerative changes dorsal spine. IMPRESSION: 1. No evidence for acute pulmonary disease.
--- NOTE | 2022-10-19 21:45 | XR ---
EXAMINATION TYPE: XR soft tissue neck DATE OF EXAM: 10/19/2022 COMPARISON: NONE HISTORY: sore throat TECHNIQUE: 2 views of the soft tissues of the neck are submitted. FINDINGS: The airway is patent. Normal appearing epiglottis. Retropharyngeal soft tissues are withi n normal limits. No evidence for radiopaque foreign body. IMPRESSION: Negative study
[2022-10-19 22:13] VITALS: BP 108/59; PULSE 71; RESP 20; TEMP 98
== END 2022-10-19 22:13 | disposition home or self-care (01) ==
LOC: EC 19:00
DX: J02.9 Acute pharyngitis, unspecified (principal); J44.9 Chronic obstructive pulmonary disease, unspecified; K21.9 Gastro-esophageal reflux disease without esophagitis; M06.9 Rheumatoid arthritis, unspecified; E07.9 Disorder of thyroid, unspecified; F41.9 Anxiety disorder, unspecified; F32.A Depression, unspecified; F17.200 Nicotine dependence, unspecified, uncomplicated; Z20.822 Contact with and (suspected) exposure to COVID-19; Z79.890 Hormone replacement therapy; Z79.899 Other long term (current) drug therapy; Z91.040 Latex allergy status
CPT/HCPCS: 70360; 71046; 87636; 87651; 99283

== ENCOUNTER 2023-02-11 14:06 | Inpatient (IN) | payer MEDICARE, OTHER ==
--- NOTE | 2023-02-11 14:41 | ED ---
Anxiety HPI - General Source: patient - History of Present Illness MD Complaint: anxiety -: days(s) (3) Previous History of Same: Yes Quality: worsening Provoking factors: none known <Reymundo Vann - Last Filed: 02/11/23 14:54> <Mariela Solis - Last Filed: 02/11/23 17:36> - General Stated Complaint: panic attack - History of Present Illness Initial Comments: Anxiety for 3 days, seen PCP yesterday, he lowered her levothyroxine to 88mcg, he discontinued her abilify and gave her xanax 1mg q 6 hours and not helping. Been on it for a year. Told him it's not working Does not know what is causing her anxiety. Feels shaky with some chest pain/ pressure that started today. Th inks it is related to anxiety. Last xanax at 1230. No dyspnea, no fevers. Does feel nauseated "I know it's just nerves". HX: anxiety, hypothyroid, pacer, cardiac arrest in 2012. (Reymundo Vann) Haylie is a 67yo F who presents to the ER via private vehicle for evaluation of anxiety for 3 days and chest pressure. Patient reports she saw her PCP Dr Salamanca 2 days ago, he decided that since her Abilfy 2mg daily didnt seem to be working she should discontinue that and increase Xanax to 4x daily as needed. Despite making these changes she reports she feels like she is on day 3 of a panic attack and the symptoms are worsening. She has some chest pressure which began today, she attributes this to anxiety as well. (Mariela Solis) - Related Data Home Medications: Home Medications Medication Instructions Recorded Confirmed ALPRAZolam 1 mg PO QID PRN 08/09/14 02/25/19 Losartan Potassium 25 mg PO QAM 08/09/14 02/25/19 Simvastatin 20 mg PO HS 08/09/14 02/25/19 Spironolactone [Aldactone] 25 mg PO BID 08/09/14 02/25/19 carvediloL [Carvedilol] 6.25 mg PO BID 08/09/14 02/25/19 hydrOXYzine pamoate [Vistaril] 100 mg PO TID PRN 08/09/14 02/25/19 Furosemide [Lasix] 40 mg PO DAILY 09/28/16 02/25/19 traMADol HCL [Ultram] 50 mg PO Q8HR PRN 09/28/16 02/25/19 Albuterol Inhaler [Ventolin Hfa 1 - 2 puff INHALATION RT-Q6H PRN 02/10/18 02/25/19 Inhaler] Ergocalciferol [Vitamin D2] 50,000 unit PO MO 02/10/18 02/25/19 Levothyroxine Sodium [Synthroid] 112 mcg PO DAILY 02/10/18 02/25/19 PARoxetine HCL 40 mg PO DAILY 02/10/18 02/25/19 Umeclidinium [place] [Incruse 1 puff INHALATION RT-DAILY 02/10/18 02/25/19 Ellipta] Potassium Chloride ER [K-Dur 10] 10 meq PO DAILY 02/25/19 02/25/19 Previous Rx's Medication Instructions Recorded Clotrimazole Cream [Lotrimin Cream] 1 applic TOPICAL BID #60 gm 07/16/19 Hydrocortisone Cream 1 applic TOPICAL BID #60 gm 07/16/19 [Hydrocortisone 1% Cream] methylPREDNISolone Dose Pack 4 mg PO DIRECTED #21 package 07/16/19 [Medrol Dose Pack] Loratadine [Claritin] 10 mg PO DAILY #30 tablet 08/19/19 Permethrin 5% Cream [Elimite] 1 applic TOPICAL ONCE #1 bottle 08/19/19 Azelastine HCl [Optivar 0.05% 1 drop BOTH EYES BID 5 Days #1 12/12/20 Ophth Soln] bottle diphenhydrAMINE & Zinc Cream 1 applic TOPICAL TID #28 gm 05/03/21 [Benadryl Cream] predniSONE [Deltasone] 20 mg PO BID #10 tab 05/03/21 Allergies/Adverse Reactions: Allergies Allergy/AdvReac Type Severity Reaction Status Date / Time elastic Allergy Rash/Hives Uncoded 02/11/23 14:44 Review of Systems ROS Other: All systems not noted in ROS Statement are negative. <Reymundo Vann - Last Filed: 02/11/23 14:54> ROS Other: All systems not noted in ROS Statement are negative. <Mariela Solis - Last Filed: 02/11/23 17:36> ROS Statement: Those systems with pertinent positive or pertinent negative responses have been documented in the HPI. Past Medical History Past Medical History: COPD, GERD/Reflux, Rheumatoid Arthritis (RA), Sleep Apnea/CPAP/BIPAP, Thyroid Disorder Additional Past Medical History / Comment(s): USES C-PAP MACHINE, STATES HX OF STOMACH ULCERS, SEE DR HALLMAN'S H&P History of Any Multi-Drug Resistant Organisms: None Reported Past Surgical History: AICD, Heart Catheterization, Pacemaker Additional Past Surgical History / Comment(s): defibilator, bilateral cateract 04/2021 Past Anesthesia/Blood Transfusion Reactions: No Reported Reaction, Motion Sickness Type of Cardiac Device: AICD Device Placement Date:: UNKNOWN Past Psychological History: Anxiety, Depression Smoking Status: Current every day smoker Past Alcohol Use History: None Reported Past Drug Use History: None Reported - Past Family History Mother Family Medical History: No Reported History <Reymundo Vann - Last Filed: 02/11/23 14:54> General Exam <Mariela Solis - Last Filed: 02/11/23 17:36> - General Exam Comments Initial Comments: Physical Exam GENERAL: Patient is well-developed and well-nourished. Patient is nontoxic and well-hydrated and is in no distress. HENT: Normocephalic, Atraumatic. EYES: PERRL, EOMI PULMONARY: Unlabored respirations. CARDIOVASCULAR: RRR Warm and well perfused extremities ABDOMEN: Non-distended SKIN: No rashes or bruising : Deferred NEUROLOGIC: Alert and oriented Normal speech Normal gait MUSCULOSKELETAL: Moving all extremities with no apparent injury PSYCHIATRIC: Anxious No SI/HI (Mariela Solis) Course Vital Signs 02/11/23 02/11/23 02/11/23 14:34 15:13 15:30 Temperature 98.9 F Pulse Rate 80 62 64 Respiratory 18 17 18 Rate Blood Pressure 72/38 94/58 94/53 O2 Sat by Pulse 96 93 L 96 Oximetry 02/11/23 02/11/23 02/11/23 16:00 16:30 17:02 Temperature 98.7 F Pulse Rate 64 63 67 Respiratory 16 16 17 Rate Blood Pressure 101/55 107/59 97/60 O2 Sat by Pulse 95 96 95 Oximetry Medical Decision Making <Reymundo Vann - Last Filed: 02/11/23 14:54> - Lab Data Result diagrams: 02/11/23 15:00 02/11/23 15:00 <WillMariela P - Last Filed: 02/11/23 17:36> - Medical Decision Making Visual Physical Exam Vital signs reviewed, hypotensive 72/38 on left arm Denies dizziness. Is complaining of chest pain. General: Well-appearing, nontoxic, no acute distress. Head: Normocephalic, atraumatic Eyes: PERRLA, EOMI ENT: Airway patent Chest: Nonlabored breathing Skin: No visual rash, normal skin tone Neuro: Alert and oriented 3 Musculoskeletal: No gross abnormalities I have performed a quick note portion of this chart. Reymundo Vann NP (Reymundo Vann) Was pt. sent in by a medical professional or institution ([facility], [employer], urgent care, hospital, or senior living...) When possible be specific @ -[No] Did you speak to anyone other than the patient for history (EMS, parent, family, police, friend...)? What history was obtained from this source @ -[No] Did you review nursing and triage notes (agree or disagree)? Why? @ -[I reviewed and agree with nursing and triage notes] Were old charts reviewed (outside hosp., previous admission, EMS record, old EKG, old radiological studies, urgent care reports/EKG's, senior living records)? Report findings @ previous labs and EKG were reviewed Differential Diagnosis (chest pain, altered mental status, abdominal pain women, abdominal pain men, vaginal bleeding, weakness, fever, dyspnea, syncope, headache, dizziness, GI bleed, back pain, seizure, CVA, palpatations, mental health, musculoskeletal)? @ Differential Chest Pain: Stable Angina, Unstable Angina, STEMI, NSTEMI Aortic Dissection, Pneumothorax, Musculoskeletal, Esophageal Spasm GERD, Cholecystitis, Pancreatitis, Zoster, this is not meant to be an all-inclusive list. EKG interpreted by me (3pts min.). @ -[As above] X-rays interpreted by me (1pt min.). @ no acute findings CT interpreted by me (1pt min.). @ -[None done] U/S interpreted by me (1pt. min.). @ -[None done] What testing was considered but not performed or refused? (CT, X-rays, U/S, labs)? Why? @ -[None] What meds were considered but not given or refused? Why? @ beta blockers were considered but held due to bradycardia and hypotension Did you discuss the management of the patient with other professionals (professionals i.e. , PA, [employer]ICE PRESIDENT [employer], lab, RT, psych nurse, forensic social worker, dining room attendant cafeteria, teacher, customs and border protection officer, piano case and bench assembler)? Give summary @ discussed with Jadyn Was smoking cessation discussed for >3mins.? @ -[No] Was critical care preformed (if so, how long)? @ -[No] Were there social determinants of health that impacted care today? How? (Homelessness, low income, unemployed, alcoholism, drug addiction, transportation, low edu. Level, literacy, decrease access to med. care, fci, rehab)? @ -[No] Was there de-escalation of care discussed even if they declined (Discuss DNR or withdrawal of care, Hospice)? DNR status @ -[No] What co-morbidities impacted this encounter? (DM, HTN, Smoking, COPD, CAD, Cancer, CVA, ARF, Chemo, Hep., AIDS, mental health diagnosis, sleep apnea, morbid obesity)? @ COPD, Anxiety Was patient admitted / discharged? Hospital course, mention meds given and route, prescriptions, significant lab abnormalities, going to OR and other pertinent info. @ admitted for further management of hyperthyroidism with hemodynamic instability including hypotension Undiagnosed new problem with uncertain prognosis? @ yes Drug Therapy requiring intensive monitoring for toxicity (Heparin, Nitro, Insulin, Cardizem)? @ -[No] Were any procedures done? @ -[No] Diagnosis/symptom? @ Hyperthyroid Acute, or Chronic, or Acute on Chronic? @ acute Uncomplicated (without systemic symptoms) or Complicated (systemic symptoms)? @ Complicated Side effects of treatment? @ Yes Exacerbation, Progression, or Severe Exacerbation? @ -[No] Poses a threat to life or bodily function? How? (Chest pain, [place], [place], pneumonia, PE, COPD, DKA, ARF, appy, cholecystitis, CVA, Diverticulitis, Homicidal, Suicidal, threat to staff... and all critical care pts) @Yes, can cause arrhythmia or high output heart failure (Mariela Solis) - Lab Data Lab Results 02/11/23 02/11/23 02/11/23 Range/Units 15:00 15:00 15:00 WBC 8.5 (3.8-10.6) k/uL RBC 4.36 (3.80-5.40) m/uL Hgb 12.2 (11.4-16.0) gm/dL Hct 35.6 (34.0-46.0) % MCV 81.7 (80.0-100.0) fL MCH 28.0 (25.0-35.0) pg MCHC 34.2 (31.0-37.0) g/dL RDW 16.1 H (11.5-15.5) % Plt Count 259 (150-450) k/uL MPV 9.2 Neutrophils % 72 % Lymphocytes % 18 % Monocytes % 7 % Eosinophils % 1 % Basophils % 0 % Neutrophils # 6.1 (1.3-7.7) k/uL Lymphocytes # 1.6 (1.0-4.8) k/uL Monocytes # 0.6 (0-1.0) k/uL Eosinophils # 0.1 (0-0.7) k/uL Basophils # 0.0 (0-0.2) k/uL Anisocytosis Slight PT 10.7 (9.0-12.0) sec INR 1.0 (<1.2) APTT 25.8 (22.0-30.0) sec Sodium 135 L (137-145) mmol/L Potassium 3.9 (3.5-5.1) mmol/L Chloride 94 L (98-107) mmol/L Carbon Dioxide 29 (22-30) mmol/L Anion Gap 12 mmol/L BUN 20 H (7-17) mg/dL Creatinine 1.01 (0.52-1.04) mg/dL Est GFR (CKD-EPI)AfAm 68 (>60 ml/min/1.73 sqM) Est GFR (CKD-EPI)NonAf 59 (>60 ml/min/1.73 sqM) Glucose 142 H (74-99) mg/dL Calcium 9.3 (8.4-10.2) mg/dL Magnesium 1.9 (1.6-2.3) mg/dL Total Bilirubin 0.8 (0.2-1.3) mg/dL AST 27 (14-36) U/L ALT 17 (4-34) U/L Alkaline Phosphatase 102 (38-126) U/L Troponin I (0.000-0.034) ng/mL Total Protein 6.6 (6.3-8.2) g/dL Albumin 3.6 (3.5-5.0) g/dL TSH (0.465-4.680) mIU/L Urine Color Urine Appearance (Clear) Urine pH (5.0-8.0) Ur Specific [place] (1.001-1.035) Urine Protein (Negative) Urine Glucose (UA) (Negative) Urine Ketones (Negative) Urine Blood (Negative) Urine Nitrite (Negative) Urine Bilirubin (Negative) Urine Urobilinogen (<2.0) mg/dL Ur Leukocyte Esterase (Negative) Urine RBC (0-5) /hpf Urine WBC (0-5) /hpf Urine WBC Clumps (None) /hpf Ur Squamous Epith Cells (0-4) /hpf Urine Bacteria (None) /hpf Hyaline Casts (0-2) /lpf Urine Mucus (None) /hpf Urine Yeast (Budding) (None) /hpf 02/11/23 02/11/23 02/11/23 Range/Units 15:00 15:00 16:19 WBC (3.8-10.6) k/uL RBC (3.80-5.40) m/uL Hgb (11.4-16.0) gm/dL Hct (34.0-46.0) % MCV (80.0-100.0) fL MCH (25.0-35.0) pg MCHC (31.0-37.0) g/dL RDW (11.5-15.5) % Plt Count (150-450) k/uL MPV Neutrophils % % Lymphocytes % % Monocytes % % Eosinophils % % Basophils % % Neutrophils # (1.3-7.7) k/uL Lymphocytes # (1.0-4.8) k/uL Monocytes # (0-1.0) k/uL Eosinophils # (0-0.7) k/uL Basophils # (0-0.2) k/uL Anisocytosis PT (9.0-12.0) sec INR (<1.2) APTT (22.0-30.0) sec Sodium (137-145) mmol/L Potassium (3.5-5.1) mmol/L Chloride (98-107) mmol/L Carbon Dioxide (22-30) mmol/L Anion Gap mmol/L BUN (7-17) mg/dL Creatinine (0.52-1.04) mg/dL Est GFR (CKD-EPI)AfAm (>60 ml/min/1.73 sqM) Est GFR (CKD-EPI)NonAf (>60 ml/min/1.73 sqM) Glucose (74-99) mg/dL Calcium (8.4-10.2) mg/dL Magnesium (1.6-2.3) mg/dL Total Bilirubin (0.2-1.3) mg/dL AST (14-36) U/L ALT (4-34) U/L Alkaline Phosphatase (38-126) U/L Troponin I 0.013 (0.000-0.034) ng/mL Total Protein (6.3-8.2) g/dL Albumin (3.5-5.0) g/dL TSH <0.015 L (0.465-4.680) mIU/L Urine Color Yellow Urine Appearance Cloudy H (Clear) Urine pH 5.5 (5.0-8.0) Ur Specific [place] 1.010 (1.001-1.035) Urine Protein Negative (Negative) Urine Glucose (UA) Negative (Negative) Urine Ketones 1+ H (Negative) Urine Blood Negative (Negative) Urine Nitrite Positive H (Negative) Urine Bilirubin Negative (Negative) Urine Urobilinogen 2.0 (<2.0) mg/dL Ur Leukocyte Esterase Large H (Negative) Urine RBC 3 (0-5) /hpf Urine WBC >182 H (0-5) /hpf Urine WBC Clumps Rare H (None) /hpf Ur Squamous Epith Cells 2 (0-4) /hpf Urine Bacteria Many H (None) /hpf Hyaline Casts 48 H (0-2) /lpf Urine Mucus Occasional H (None) /hpf Urine Yeast (Budding) Occasional H (None) /hpf Disposition <Reymundo Vann - Last Filed: 02/11/23 14:54> <Mariela Solis - Last Filed: 02/11/23 17:36> Clinical Impression: Hyperthyroidism, Hypotension Disposition: ADMITTED IP TO THIS [facility] Condition: Serious Referrals: Jadyn,Aniya, MD [Primary Care Provider] - 1-2 days
[2023-02-11] MEDS ORDERED: ASPIRIN 81 MG PO STA (14:48)
[2023-02-11 15:26] LABS: Partial Thromboplastin Time 25.8 sec (22.0-30.0); Prothrombin Time 10.7 sec (9.0-12.0)
--- NOTE | 2023-02-11 15:28 | XR ---
EXAMINATION TYPE: XR chest 2V DATE OF EXAM: 02/11/2023 COMPARISON: 10/19/2022 TECHNIQUE: PA and lateral views submitted. HISTORY: Chest pain FINDINGS: The lungs are clear and there is no pneumothorax, pleural effusion, or focal pneumonia. Heart size normal and no overt failure. Osseous structures demonstrate hypertrophic and degenerative changes of the spine. Multilead cardiac device stable. Diffuse osteopenia and arthropathy of the shoulders. IMPRESSION: 1. No acute process. Correlate for COPD.
[2023-02-11 15:35] LABS: Anisocytosis Slight; Basophils % (A) 0 %; Eosinophils # (A) 0.1 k/uL (0-0.7); Eosinophils % (A) 1 %; HCT 35.6 % (34.0-46.0); HGB 12.2 gm/dL (11.4-16.0); Lymphocytes # (A) 1.6 k/uL (1.0-4.8); Lymphocytes % (A) 18 %; MCHC 34.2 g/dL (31.0-37.0); MCV 81.7 fL (80.0-100.0); Mean Platelet Volume 9.2; Monocytes # (A) 0.6 k/uL (0-1.0); Monocytes % (A) 7 %; Neutrophils # (A) 6.1 k/uL (1.3-7.7); Neutrophils % (A) 72 %; Platelet Count 259 k/uL (150-450); RBC 4.36 m/uL (3.80-5.40); RDW 16.1 % (11.5-15.5); WBC 8.5 k/uL (3.8-10.6)
[2023-02-11 15:40] LABS: ALT 17 U/L (4-34); AST 27 U/L (14-36); African American GFR (CKD) 68 (>60 ml/min/1.73 sqM); Albumin 3.6 g/dL (3.5-5.0); Alkaline Phosphatase 102 U/L (38-126); Anion Gap 12 mmol/L; Blood Urea Nitrogen 20 mg/dL (7-17); Calcium 9.3 mg/dL (8.4-10.2); Carbon Dioxide 29 mmol/L (22-30); Chloride 94 mmol/L (98-107); Glucose 142 mg/dL (74-99); Magnesium 1.9 mg/dL (1.6-2.3); Non-African American GFR(CKD) 59 (>60 ml/min/1.73 sqM); Potassium 3.9 mmol/L (3.5-5.1); Sodium 135 mmol/L (137-145); Total Bilirubin 0.8 mg/dL (0.2-1.3); Total Protein 6.6 g/dL (6.3-8.2)
[2023-02-11] MEDS ORDERED: LORazepam 2 MG/ML INJ IV STA (16:02)
[2023-02-11 16:53] LABS: Appearance,Urine Cloudy (Clear); Bacteria,Urine Many /hpf; Bilirubin,Urine Negative (Negative); Blood,Urine Negative (Negative); Budding Yeast,Urine Occasional /hpf; Color,Urine Yellow; Glucose,Urine (UA) Negative (Negative); Hyaline Casts,Urine 48 /lpf (0-2); Ketones,Urine 1+ (Negative); Leukocyte Esterase,Urine Large (Negative); Mucus,Urine Occasional /hpf; Nitrite,Urine Positive (Negative); PH, Urine 5.5 (5.0-8.0); Protein,Urine Negative (Negative); RBC,Urine 3 /hpf (0-5); Squamous Epithelial Cell,Urine 2 /hpf (0-4); WBC,Urine >182 /hpf (0-5)
[2023-02-11] MEDS ORDERED: NALOXONE 0.4 MG/ML 1 ML VIAL IV PRN (17:27)
[2023-02-11] MEDS ORDERED: SODIUM CHLORIDE 0.9% 1,000 ML IV SCH (17:45)
[2023-02-11 17:52] LABS: T4, Free (Free Thyroxine) 2.33 ng/dL (0.78-2.19)
[2023-02-11] MEDS ORDERED: cefTRIAXone IN SWFI 1,000 MG/10 ML SYRINGE IVP STA (17:55)
[2023-02-11] MEDS ORDERED: LORazepam 2 MG/ML INJ IV PRN (23:00)
[2023-02-11] MEDS: LORazepam 1 MG TAB PO PRN (23:35)
[2023-02-12] MEDS: SODIUM CHLORIDE 0.9% 1,000 ML IV SCH ×3 (01:02→18:00)
[2023-02-12] MEDS: LORazepam 1 MG TAB PO PRN (06:08)
[2023-02-12] MEDS ORDERED: ATORVASTATIN 40 MG TAB PO SCH ×2 (09:00→21:00)
[2023-02-12] MEDS ORDERED: ALPRAZolam 1 MG TAB PO PRN (09:05)
[2023-02-12] MEDS ORDERED: PARoxetine 20 MG TAB PO SCH (10:00)
[2023-02-12] MEDS: PANTOPRAZOLE 40 MG TABLET PO SCH (10:11)
--- NOTE | 2023-02-12 10:25 | P.HPIM ---
History of Present Illness H&P Date: 02/12/23 This is a 67-year-old female patient who presented with concerns of increased shakiness bleed to be secondary from anxiety. Patient was seen by PCP in which her Synthroid dose was decreased. Patient was also taken off her Abilify and given Xanax to try to aid in the symptoms patient has a past medical history of anxiety, hyperthyroidism, pacer, RA, nicotine dependence and sleep apnea. Chest x-ray completed showing no acute process correlate for COPD. TSH low at 0.015. UA Positive Infection. Upon arrival patient was found to be hypotensive with a blood pressure 85/64. Heart rate also low at 42. At this time patient admitted patient started on IV Rocephin for UTI, Ativan for anxiety. Cardiology services consulted home cardiac medications currently on hold. We'll also patent decreas e patient's Synthroid dose to 75. Psychiatry services also consulted for increased anxiety. At this time patient denies chest pain or shortness of breath. Denies nausea vomiting or diarrhea. Denies any urinary burning or frequency. Is complaining about shakiness. Review of Systems Please refer to HPI otherwise unremarkable Past Medical History Past Medical History: COPD, GERD/Reflux, Rheumatoid Arthritis (RA), Sleep Apnea/CPAP/BIPAP, Thyroid Disorder Additional Past Medical History / Comment(s): USES C-PAP MACHINE, STATES HX OF STOMACH ULCERS, SEE DR HALLMAN'S H&P History of Any Multi-Drug Resistant Organisms: None Reported Past Surgical History: AICD, Heart Catheterization, Pacemaker Additional Past Surgical History / Comment(s): defibilator, bilateral cateract 04/2021 Past Anesthesia/Blood Transfusion Reactions: No Reported Reaction, Motion Sickness Type of Cardiac Device: AICD Device Placement Date:: 2012 Past Psychological History: Anxiety, Depression Smoking Status: Current every day smoker Past Alcohol Use History: None Reported Additional Past Alcohol Use History / Comment(s): STARTED SMOKING AGE 15. , SMOKES < 1PPD. RECOVERING ALCOHOLIC, NOTHING SINCE 1989 Past Drug Use History: None Reported - Past Family History Mother Family Medical History: No Reported History Medications and Allergies Home Medications Medication Instructions Recorded Confirmed Type Losartan Potassium 25 mg PO DAILY 08/09/14 02/11/23 History Spironolactone [Aldactone] 25 mg PO DAILY 08/09/14 02/11/23 History carvediloL [Carvedilol] 6.25 mg PO BID 08/09/14 02/11/23 History Furosemide [Lasix] 40 mg PO BID 09/28/16 02/11/23 History traMADol HCL [Ultram] 50 mg PO Q8HR PRN 09/28/16 02/11/23 History Albuterol Inhaler [Ventolin Hfa 1 - 2 puff INHALATION RT-Q6H PRN 02/10/18 02/11/23 History Inhaler] PARoxetine HCL 40 mg PO DAILY 02/10/18 02/11/23 History Potassium Chloride ER [K-Dur 10] 10 meq PO DAILY 02/25/19 02/11/23 History ALPRAZolam [Xanax] 1 mg PO TID PRN 02/11/23 02/11/23 History Budesonide/Glycopyr/Formoterol 2 puff INHALATION RT-BID 02/11/23 02/11/23 History [Breztri Aerosphere Inhaler] Levothyroxine Sodium [Synthroid] 88 mcg PO DAILY 02/11/23 02/11/23 History Nystatin 100,000 Unit/ml Susp 5 ml PO DAILY 02/11/23 02/11/23 History [Mycostatin Oral Susp] Omeprazole 20 mg PO BID 02/11/23 02/11/23 History Simvastatin [Zocor] 80 mg PO DAILY 02/11/23 02/11/23 History Allergies Allergy/AdvReac Type Severity Reaction Status Date / Time elastic Allergy Rash/Hives Uncoded 02/11/23 19:04 Physical Exam Vitals: Vital Signs Temp Pulse Pulse Resp BP BP Pulse Ox 02/12/23 06:50 98.2 F 67 17 96/57 94 L 02/12/23 01:06 98.3 F 58 L 18 94/60 98 02/11/23 21:45 97.6 F 42 L 18 80/52 98 02/11/23 21:21 98.4 F 60 18 85/64 95 02/11/23 20:20 98.3 F 57 L 16 101/57 95 02/11/23 18:02 67 16 100/68 95 02/11/23 17:02 98.7 F 67 17 97/60 95 02/11/23 16:30 63 16 107/59 96 02/11/23 16:00 64 16 101/55 95 02/11/23 15:30 64 18 94/53 96 02/11/23 15:13 62 17 94/58 93 L 02/11/23 14:34 98.9 F 80 18 72/38 96 Intake and Output 02/11/23 02/12/23 02/12/23 22:59 06:59 14:59 Intake Total 1000 Balance 1000 Intake: Intake, IV Titration 1000 Amount Sodium Chloride 0.9% 1, 1000 000 ml @ 100 mls/hr IV . Q10H MIRIAN Rx#:[id number] Other: # Voids 1 2 Weight 72.575 kg Head normocephalic Neck supple Lungs clear to auscultation bilaterally no wheezing or crackles Heart regular rate and rhythm S1-S2, no rub or gallop Abdomen is soft nontender nondistended positive bowel sounds no hepatosplenomeg stefania Extremities no edema Neuro alert and orientated to 3 Results CBC & Chem 7: 02/11/23 15:00 02/11/23 15:00 Labs: Abnormal Lab Results - Last 24 Hours (Table) 02/11/23 02/11/23 02/11/23 Range/Units 15:00 15:00 15:00 RDW 16.1 H (11.5-15.5) % Sodium 135 L (137-145) mmol/L Chloride 94 L (98-107) mmol/L BUN 20 H (7-17) mg/dL Glucose 142 H (74-99) mg/dL TSH <0.015 L (0.465-4.680) mIU/L Free T4 2.33 H (0.78-2.19) ng/dL Urine Appearance (Clear) Urine Ketones (Negative) Urine Nitrite (Negative) Ur Leukocyte Esterase (Negative) Urine WBC (0-5) /hpf Urine WBC Clumps (None) /hpf Urine Bacteria (None) /hpf Hyaline Casts (0-2) /lpf Urine Mucus (None) /hpf Urine Yeast (Budding) (None) /hpf 02/11/23 Range/Units 16:19 RDW (11.5-15.5) % Sodium (137-145) mmol/L Chloride (98-107) mmol/L BUN (7-17) mg/dL Glucose (74-99) mg/dL TSH (0.465-4.680) mIU/L Free T4 (0.78-2.19) ng/dL Urine Appearance Cloudy H (Clear) Urine Ketones 1+ H (Negative) Urine Nitrite Positive H (Negative) Ur Leukocyte Esterase Large H (Negative) Urine WBC >182 H (0-5) /hpf Urine WBC Clumps Rare H (None) /hpf Urine Bacteria Many H (None) /hpf Hyaline Casts 48 H (0-2) /lpf Urine Mucus Occasional H (None) /hpf Urine Yeast (Budding) Occasional H (None) /hpf Thrombosis Risk Factor Assmnt - Choose All That Apply Any of the Below Risk Factors Present?: Yes Each Factor Represents 1 point: Abnormal pulmonary function (COPD), Obesity (BMI >25) Other Risk Factors: Yes Each Risk Factor Represents 2 Points: Age 61-74 years Other congenital or acquired thrombophilia - If yes, enter type in comment: No Thrombosis Risk Factor Assessment Total Risk Factor Score: 4 Thrombosis Risk Factor Assessment Level: Moderate Risk Assessment and Plan Assessment: 1. Increased anxiety. Patient started on Ativan psychiatry service is consulted 2. Hyperthyroidism TSH low Synthroid dose decreased to 75 3. Urinary tract infection. Patient started IV Rocephin 4. Hypotension. Cardiac meds currently on hold cardiology services consulted 5. Bradycardia. 2-D echo ordered 6. History of COPD no exacerbation at this time 7. History of GERD 8. History of rheumatoid arthritis 9. History of hypothyroidism 10. History of sleep apnea currently uses CPAP machine 11. History of pacemaker and AICD placement 12. History of heart catheterization 13. Nicotine dependence. Patient educated greater than 3 minutes on complete smoking cessation nicotine patch ordered Cardiology and psychiatry service is consulted 2-D echo ordered Urine culture ordered Patient started on IV antibiotics Time with Patient: Greater than 30 (Greater than 60% of the total time spent in counseling and coordination of care)
--- NOTE | 2023-02-12 10:31 | P.CRDCN ---
History of Present Illness History of present illness: HISTORY OF PRESENT ILLNESS: This is a 67-year-old female with a past medical history significant for nonischemic cardiomyopathy with recovered ejection fraction, biventricular ICD implantation, nonsustained ventricular tachycardia, congestive heart failure, hypertension, hyperlipidemia, and nicotine dependence. Patient follows in the office with Dr. Greene. We have been asked to see the patient in consultation for hypotension. Patient examined at the bedside. Patients family members at the bedside. Patient states that she presented to the hospital yesterday because she was having a bad panic attack. The patient states she does have a history of anxiety and panic attacks. She states that she was having shaking of her upper extremities. She states she has been receiving Ativan which did not help her. She states that her primary care physician, Dr. Salamanca, recently discontinued her Abilify. He also decreased her dose of Synthroid. The patient denies having any chest pain or pressure. She denies any shortness of breath. She denies any dizziness or lightheadedness. The patient has had some hypotension during hospitalization with systolic blood pressures ranging between 8096. Her cardiac medications have been placed on hold. The patient states she is a current smoker and smokes 1 pack per day. * EKG reveals ventricular paced rhythm * Chest xray negative for acute process. Correlate for COPD. * Laboratory data: WBC 8.5. Hemoglobin 12.2. Platelet count 259. Sodium 135. Potassium 3.9. BUN 20. Creatinine 1.01. Troponin negative 1. TSH less than 0.015. Free T4 2 0.33. * Current home cardiac medications include Aldactone 25 mg daily, carvedilol 6.25 mg twice a day, losartan 25 mg daily, Lasix 40 mg twice a day, simvastatin 80 mg daily * Most recent echocardiogram obtained in September 2020 revealing ejection fraction 55% * Cardiac catheterization history: January 2012 revealing normal coronary arteries REVIEW OF SYSTEMS: At the time of my exam: CONSTITUTIONAL: Denies fever or chills. HEENT: Denies blurred vision, vision changes, or eye pain. Denies hemoptysis CARDIOVASCULAR: Denies chest pain. Denies orthopnea. Denies PND. Denies palpitations RESPIRATORY: Denies shortness of breath. GASTROINTESTINAL: Denies abdominal pain. Denies nausea or vomiting. HEMATOLOGIC: Denies bleeding disorders. GENITOURINARY: Denies any blood in urine. SKIN: Denies pruitis. Denies rash. PHYSICAL EXAM: VITAL SIGNS: Reviewed. GENERAL: Well-developed in no acute distress. HEENT: Head is normocephalic. Pupils are equal, round. Sclerae anicteric. Mucous membranes of the mouth are moist. Neck supple. No JVD or thyromegaly LUNGS: Respirations even and unlabored. Lungs essentially clear to auscultation bilaterally. HEART: Regular rate and rhythm. S1 and S2 heard. ABDOMEN: Soft. Nondistended. Nontender. EXTREMITIES: Normal range of motion. No clubbing or cyanosis. Peripheral pul ses intact. No lower extremity edema NEUROLOGIC: Awake and alert. Oriented x 3. ASSESSMENT: Anxiety with panic attacks Hypotension Iatrogenic hyperthyroidism History of nonischemic cardiomyopathy with recovered EF History of biventricular AICD implantation, [facility] Congestive heart failure with preserved EF, currently euvolemic History of nonsustained ventricular tachycardia COPD Nicotine dependence PLAN: 2-D echo has been ordered. Await results Resume carvedilol at a decreased dose of 3.125 mg twice a day Continue atorvastatin Hold Aldactone, Lasix, and losartan secondary to hypotension Continue to monitor blood pressure Further recommendations pending patient's course Nurse practitioner note has been reviewed by physician. Signing provider agrees with the documented findings, assessment, and plan of care. Past Medical History Past Medical History: COPD, GERD/Reflux, Rheumatoid Arthritis (RA), Sleep Apnea/CPAP/BIPAP, Thyroid Disorder Additional Past Medical History / Comment(s): USES C-PAP MACHINE, STATES HX OF STOMACH ULCERS, SEE DR GREENE'S H&P History of Any Multi-Drug Resistant Organisms: None Reported Past Surgical History: AICD, Heart Catheterization, Pacemaker Additional Past Surgical History / Comment(s): defibilator, bilateral cateract 04/2021 Past Anesthesia/Blood Transfusion Reactions: No Reported Reaction, Motion Sickness Type of Cardiac Device: AICD Device Placement Date:: 2012 Past Psychological History: Anxiety, Depression Smoking Status: Current every day smoker Past Alcohol Use History: None Reported Additional Past Alcohol Use History / Comment(s): STARTED SMOKING AGE 15. , SMOKES < 1PPD. RECOVERING ALCOHOLIC, NOTHING SINCE 1989 Past Drug Use History: None Reported - Past Family History Mother Family Medical History: No Reported History Medications and Allergies Home Medications Medication Instructions Recorded Confirmed Type Losartan Potassium 25 mg PO DAILY 08/09/14 02/11/23 History Spironolactone [Aldactone] 25 mg PO DAILY 08/09/14 02/11/23 History carvediloL [Carvedilol] 6.25 mg PO BID 08/09/14 02/11/23 History Furosemide [Lasix] 40 mg PO BID 09/28/16 02/11/23 History traMADol HCL [Ultram] 50 mg PO Q8HR PRN 09/28/16 02/11/23 History Albuterol Inhaler [Ventolin Hfa 1 - 2 puff INHALATION RT-Q6H PRN 02/10/18 02/11/23 History Inhaler] PARoxetine HCL 40 mg PO DAILY 02/10/18 02/11/23 History Potassium Chloride ER [K-Dur 10] 10 meq PO DAILY 02/25/19 02/11/23 History ALPRAZolam [Xanax] 1 mg PO TID PRN 02/11/23 02/11/23 History Budesonide/Glycopyr/Formoterol 2 puff INHALATION RT-BID 02/11/23 02/11/23 History [Breztri Aerosphere Inhaler] Levothyroxine Sodium [Synthroid] 88 mcg PO DAILY 02/11/23 02/11/23 History Nystatin 100,000 Unit/ml Susp 5 ml PO DAILY 02/11/23 02/11/23 History [Mycostatin Oral Susp] Omeprazole 20 mg PO BID 02/11/23 02/11/23 History Simvastatin [Zocor] 80 mg PO DAILY 02/11/23 02/11/23 History Allergies Allergy/AdvReac Type Severity Reaction Status Date / Time elastic Allergy Rash/Hives Uncoded 02/11/23 19:04 Physical Exam Vitals: Vital Signs Temp Pulse Pulse Resp BP BP Pulse Ox 02/12/23 06:50 98.2 F 67 17 96/57 94 L 02/12/23 01:06 98.3 F 58 L 18 94/60 98 02/11/23 21:45 97.6 F 42 L 18 80/52 98 02/11/23 21:21 98.4 F 60 18 85/64 95 02/11/23 20:20 98.3 F 57 L 16 101/57 95 02/11/23 18:02 67 16 100/68 95 02/11/23 17:02 98.7 F 67 17 97/60 95 02/11/23 16:30 63 16 107/59 96 02/11/23 16:00 64 16 101/55 95 02/11/23 15:30 64 18 94/53 96 02/11/23 15:13 62 17 94/58 93 L 02/11/23 14:34 98.9 F 80 18 72/38 96 Intake and Output 02/11/23 02/12/23 02/12/23 22:59 06:59 14:59 Intake Total 1000 Balance 1000 Intake: Intake, IV Titration 1000 Amount Sodium Chloride 0.9% 1, 1000 000 ml @ 100 mls/hr IV . Q10H [facility] Rx#:[id number] Other: # Voids 1 2 Weight 72.575 kg Results 02/11/23 15:00 02/11/23 15:00 Cardiac Enzymes 02/11/23 02/11/23 Range/Units 15:00 15:00 AST 27 (14-36) U/L Troponin I 0.013 (0.000-0.034) ng/mL Coagulation 02/11/23 Range/Units 15:00 PT 10.7 (9.0-12.0) sec APTT 25.8 (22.0-30.0) sec CBC 02/11/23 Range/Units 15:00 WBC 8.5 (3.8-10.6) k/uL RBC 4.36 (3.80-5.40) m/uL Hgb 12.2 (11.4-16.0) gm/dL Hct 35.6 (34.0-46.0) % Plt Count 259 (150-450) k/uL Comprehensive Metabolic Panel 02/11/23 Range/Units 15:00 Sodium 135 L (137-145) mmol/L Potassium 3.9 (3.5-5.1) mmol/L Chloride 94 L (98-107) mmol/L Carbon Dioxide 29 (22-30) mmol/L BUN 20 H (7-17) mg/dL Creatinine 1.01 (0.52-1.04) mg/dL Glucose 142 H (74-99) mg/dL Calcium 9.3 (8.4-10.2) mg/dL AST 27 (14-36) U/L ALT 17 (4-34) U/L Alkaline Phosphatase 102 (38-126) U/L Total Protein 6.6 (6.3-8.2) g/dL Albumin 3.6 (3.5-5.0) g/dL Current Medications Generic Name Dose Route Start Last Admin Trade Name Freq PRN Reason Stop Dose Admin Sodium Chloride 1,000 mls @ 100 mls/hr 02/11/23 23:00 02/12/23 01:02 Saline 0.9% IV 100 mls/hr .Q10H [facility] Administration Lorazepam 0.5 mg 02/11/23 23:03 02/12/23 06:08 Lorazepam 1 Mg Tab PO 0.5 mg Q6HR PRN Administration Anxiety Naloxone HCl 0.2 mg 02/11/23 17:27 Naloxone 0.4 Mg/Ml 1 Ml Vial IV Q2M PRN Opioid Reversal Intake and Output 02/11/23 02/12/23 02/12/23 22:59 06:59 14:59 Intake Total 1000 Balance 1000 Intake: Intake, IV Titration 1000 Amount Sodium Chloride 0.9% 1, 1000 000 ml @ 100 mls/hr IV . Q10H [facility] Rx#:[id number] Other: # Voids 1 2 Weight 72.575 kg 02/11/23 15:00 02/11/23 15:00
[2023-02-12] MEDS ORDERED: LORazepam 2 MG/ML INJ IV PRN (10:32)
[2023-02-12] MEDS: IPRATROPIUM 0.5 MG/2.5 ML NEBU INHALATION SCH ×3 (12:35→20:05)
[2023-02-12] MEDS: carvediloL 3.125 MG TAB PO SCH ×2 (12:47→17:10)
[2023-02-12] MEDS ORDERED: QUEtiapine 25 MG TAB PO PRN (13:53)
--- NOTE | 2023-02-12 14:03 | P.CN ---
Psychiatric Consult - . Consult date: 02/12/23 Consult:: 02/12/23 13:14 IDENTIFYING DATA: This patient is a 67-year-old female, is , lives with her and house, they have 1. REASON FOR REFERRAL: Psychiatry was consulted for with anxiety" HISTORY OF PRESENT ILLNESS: The patient presented to the hospital yesterday and was sent in by her primary care physician. Patient apparently had her medications adjusted including lowering her Synthroid and also discontinuing her Abilify and also increasing her Xanax dose. Patient was having severe anxiety. The anxiety has been going on for about 3 days ago and has worsened. Patient has a history of hyperthyroidism and TSH level was low. Patient also was found to have a urinary tract infection. Patient was seen today and agreeable to speak to keno writer at the bedside. She claims that she has a history of panic disorder and has had several panic attacks lately. She claims that she feels shaky and feels like her chest hurts and also clammy hands. She claims she had her medications adjusted by her primary care doctor. She states that she has generally had levels of anxiety during the day. Claims that she is also mildly depressed however relates it back to several family members recent passing away in the past year or so. She claims that her sleep has been on and off, appetite as been low. At this time patient denies any suicidal or homical ideations, intent or plan. Patient denies any auditory, visual hallucinations and denies any paranoia or delusions. Patients admits to using cigarettes daily. She states that she does have a distant history of alcohol use about 35 years ago however has been sober since. PAST PSYCHIATRIC HISTORY: Patient has a a history of panic disorder and depression. Patient is currently on Ativan, was previously taking Xanax and Librium, she is currently taking Paxil. Abilify was discontinued recently. Patient denies any previous psychiatric hospitalizations. Patient denies any psychiatric outpatient follow-up. Patient denies any history of suicide attempts in the past. Past Medical History: COPD, GERD/Reflux, Rheumatoid Arthritis (RA), Sleep Apnea/CPAP/BIPAP, Thyroid Disorder Additional Past Medical History / Comment(s): USES C-PAP MACHINE, STATES HX OF STOMACH ULCERS, SEE DR HALLMAN'S H&P History of Any Multi-Drug Resistant Organisms: None Reported Past Surgical History: AICD, Heart Catheterization, Pacemaker Additional Past Surgical History / Comment(s): defibilator, bilateral cateract 04/2021 Past Anesthesia/Blood Transfusion Reactions: No Reported Reaction, Motion Sickness Type of Cardiac Device: AICD Device Placement Date:: UNKNOWN Past Psychological History: Anxiety, Depression Smoking Status: Current every day smoker Past Alcohol Use History: None Reported Past Drug Use History: None Reported ALLERGIES: as per EMR. CHEMICAL DEPENDENCY HISTORY: as per HPI. FAMILY PSYCHIATRIC/SUBSTANCE USE HISTORY: denies SOCIAL HISTORY: Patient was born and raised in [place], claims that she completed high school, she states that she worked several different jobs in the past. States that she does not have any legal history. She is currently , that she lives in a house with her , they have 1 kid MENTAL STATUS EXAM: General Appearance: Patient appears to be older than stated age is alert, pleasant, and cooperative. Patient appears to have fair hygiene and grooming wearing hospital gown with fair eye contact. Behavior: Patient is calmly lying in bed without any agitated behavior. Appears mildly anxious. Speech: Patient's speech is fluent and nonpressured. Mood/Affect: Patient reports their mood is "depressed and mainly anxious", affect is congruent and constricted Suicidality/Homicidality: Patient denies having any suicidal or homicidal ideation intent or plan. Perceptions: Patient denies any visual hallucinations and denies any auditory hallucinations Though content/process: There is no evidence of any delusional thought content and thought process is linear and goal-directed. Focused on her symptoms Memory and concentration: AOX3, grossly intact for the purposes of this session. Can spell "WORLD" backwards Judgment and insight: Fair IMPRESSIONS: Panic disorder Depressive disorder unspecified Nicotine dependence PLAN: -At this time patient DOES NOT meet criteria for inpatient psychiatric admission. -Would recommend the following medication changes/additions: Please trying to avoid benzos including ativan and xanax as patient will likely get tolerant and lead to abuse and possibly overdose. d/c paxil and replace with cymbalta 30 mg bid for anxiety/mood, buspar tid prn for anxiety, seroquel 25 mg qhs scheduled for anxiety/insomnia and bid prn for acute anxiety or agitation. -farm worker to provide patient with outpatient mental health/psychiatry resources for appropriate follow up upon discharge -Communicated plan to patient's nurse -Will continue to follow along if requested over the weekend. -Please contact with any questions. 02/12/23 13:54
[2023-02-12 14:51] VITALS: BMI 27.4
[2023-02-12] MEDS: DULoxetine HCL 30 MG CAPSULE.DR PO SCH ×2 (15:26→20:44)
[2023-02-12] MEDS: busPIRone HCl 5 MG TAB PO PRN (17:18)
--- NOTE | 2023-02-12 18:11 | CA ---
Transthoracic Echo Report Name: Hayile Yu Age: 67 Gender: F : 1955 Exam Date: 02/12/2023 13:41 Exam Location: [facility] Ht (in): 64 Wt (lb): 160 Ordering Physician: Mariela Solis DO Attending/Referring Phys: [id number], Will Substitute Crossing Guard Bello Shannan Procedure CPT: Indications: hyperthyroid Cardiac Hx: Technical Quality: Fair Contrast 1: Total Dose (mL): Contrast 2: Total Dose (mL): MEASUREMENTS (Male / Female) Normal Values 2D ECHO LV Diastolic Diameter PLAX 4.1 cm 4.2 - 5.9 / 3.9 - 5.3 cm LV Systolic Diameter PLAX 3.0 cm IVS Diastolic Thickness 1.0 cm 0.6 - 1.0 / 0.6 - 0.9 cm LVPW Diastolic Thickness 1.1 cm 0.6 - 1.0 / 0.6 - 0.9 cm LV Relative Wall Thickness 0.5 RV Internal Dim ED PLAX 3.0 cm LVOT Diameter 2.0 cm Aortic Root Diameter 2.7 cm LA Systolic Diameter LX 1.9 cm 3.0 - 4.0 / 2.7 - 3.8 cm LV Diastolic Volume MOD BP 56.7 cm??? 67 - 155 / 56 - 104 cm??? LV Systolic Volume MOD BP 20.5 cm??? 22 - 58 / 19 - 49 cm??? LV Ejection Fraction MOD BP 63.8 % >= 55 % LV Cardiac Index MOD BP 1504.8 cm???/min???m??? LV Diastolic Volume MOD 4C 66.5 cm??? LV Systolic Volume MOD 4C 23.2 cm??? LV Ejection Fraction MOD 4C 65.2 % LV Cardiac Index MOD 4C 1801.9 cm???/min???m??? LV Diastolic Length 4C 6.9 cm LV Systolic Length 4C 5.4 cm LV Diastolic Volume MOD 2C 44.3 cm??? LV Systolic Volume MOD 2C 18.1 cm??? LV Ejection Fraction MOD 2C 59.0 % LV Cardiac Index MOD 2C 1086.1 cm???/min???m??? LV Diastolic Length 2C 6.3 cm LV Systolic Length 2C 5.4 cm LA Volume 31.8 cm??? 18 - 58 / 22 - 52 cm??? DOPPLER AV Peak Velocity 185.6 cm/s AV Peak Gradient 13.8 mmHg LVOT Peak Velocity 119.7 cm/s LVOT Peak Gradient 5.7 mmHg AV Area Cont Eq pk 2.1 cm??? MV Peak Velocity 102.8 cm/s MV Peak Gradient 4.2 mmHg MV Mean Velocity 46.7 cm/s MV Mean Gradient 1.1 mmHg MV Velocity Time Integral 33.1 cm MR Peak Velocity 390.5 cm/s MR Peak Gradient 61.0 mmHg Mitral E Point Velocity 65.9 cm/s Mitral A Point Velocity 90.7 cm/s Mitral E to A Ratio 0.7 MV Deceleration Time 351.1 ms MV E' Velocity 11.0 cm/s Mitral E to MV E' Ratio 6.0 TR Peak Velocity 202.0 cm/s TR Peak Gradient 16.3 mmHg Right Ventricular Systolic Press 21.9 mmHg FINDINGS Left Ventricle Normal LV size and wall motion. Left ventricular ejection fraction is estimated at 55-60%.normal left ventricular wall motion. Right Ventricle Normal right ventricular size. RVSP= 16mmhg. Right Atrium Normal right atrial size. Pace wire noted. Left Atrium Normal left atrial size. Mitral Valve Structurally normal mitral valve. Mild MR. thickened mitral valve leaflets Aortic Valve Aortic valve not well visualized. No aortic valve stenosis or regurgitation. Tricuspid Valve Structurally normal tricuspid valve. Mild TR. Pulmonic Valve Pulmonic valve not well visualized. No pulmonic regurgitation. Pericardium Normal pericardium. Aorta Normal size aortic root . CONCLUSIONS 1. Normal left ventricle size and systolic function 2. A wire is noted in the right ventricle 3. Mild mitral and tricuspid regurgitation with no evidence of pulmonary hypertension Previewed by: Dr. Donavan Steiner MD (Electronically Signed) Final Date: 12 February 2023 18:10
[2023-02-12] MEDS: SYMBICORT 160-4.5 MCG INHALER INHALATION SCH (20:05)
[2023-02-12] MEDS ORDERED: QUEtiapine 25 MG TAB PO SCH (21:00)
[2023-02-13] MEDS: busPIRone HCl 5 MG TAB PO PRN ×2 (04:03→12:27)
[2023-02-13] MEDS: SODIUM CHLORIDE 0.9% 1,000 ML IV SCH (04:06)
[2023-02-13] MEDS ORDERED: LEVOTHYROXINE 75 MCG TAB PO SCH (06:30)
[2023-02-13] MEDS: SYMBICORT 160-4.5 MCG INHALER INHALATION SCH (07:41)
[2023-02-13] MEDS: IPRATROPIUM 0.5 MG/2.5 ML NEBU INHALATION SCH ×2 (07:41→11:33)
[2023-02-13] MEDS: PANTOPRAZOLE 40 MG TABLET PO SCH (08:19)
[2023-02-13] MEDS: carvediloL 3.125 MG TAB PO SCH (08:19)
[2023-02-13] MEDS: DULoxetine HCL 30 MG CAPSULE.DR PO SCH (08:19)
[2023-02-13] MEDS ORDERED: NICOTINE 14MG/24HR PATCH TRANSDERM SCH (09:00)
[2023-02-13] MEDS ORDERED: LEVOTHYROXINE 88 MCG TAB PO SCH (09:00)
[2023-02-13] MEDS ORDERED: POTASSIUM CHLORIDE ER 10 MEQ TAB.ER.PRT PO SCH (09:00)
[2023-02-13 09:11] LABS: Basophils # (A) 0.04 X 10*3/uL (0.00-0.10); Basophils % (A) 0.6 %; Eosinophils % (A) 1.6 %; HGB 11.5 d/dL (12.0-15.0); Lymphocytes # (A) 1.45 X 10*3/uL (0.90-5.00); Lymphocytes % (A) 23.2 %; MCH 26.3 pg (27.0-32.0); MCHC 31.1 d/dL (32.0-37.0); MCV 84.5 FL (80.0-97.0); Mean Platelet Volume 11.9 FL (9.5-12.2); Monocytes # (A) 0.68 X 10*3/uL (0.20-1.00); Monocytes % (A) 10.9 %; NRBC Per 100 WBC 0 X 10*3/uL (0.00-0.01); Neutrophils # (A) 3.95 X 10*3/uL (1.80-7.70); Neutrophils % (A) 63.2 %; Platelet Count 301 X 10*3/uL (140-440); RBC 4.38 X 10*6/uL (4.10-5.20); RDW 17.2 % (11.5-14.5); WBC 6.25 X 10*3/uL (4.50-10.00)
[2023-02-13 09:21] LABS: ALT 13 U/L (8-44); AST 21 U/L (13-35); Albumin 3.6 d/dL (3.8-4.9); Albumin/Globulin Ratio 1.71 Ratio (1.60-3.17); Alkaline Phosphatase 97 U/L (41-126); BUN/Creat Ratio 9.75 Ratio (12.00-20.00); Blood Urea Nitrogen 7.8 mg/dL (9.0-27.0); Calcium 8.7 mg/dL (8.7-10.3); Carbon Dioxide 23.2 mmol/L (21.6-31.8); Chloride 103 mmol/L (96-109); Globulin 2.1 d/dL (1.6-3.3); Glucose 82 mg/dL (70-110); Potassium 3.1 mmol/L (3.5-5.5); Sodium 143 mmol/L (135-145); Total Bilirubin 0.3 mg/dL (0.3-1.2); Total Protein 5.7 d/dL (6.2-8.2)
--- NOTE | 2023-02-13 11:50 | P.DS ---
Providers Date of admission: 02/11/23 17:29 Expected date of discharge: 02/13/23 Attending physician: Aniya Salamanca Consults: 02/11/23 17:27 Consult Physician Routine Consulting Provider: [facility] Consult Reason/Comments: hyperthyroid Do you want consulting provider notified?: Yes, Notify in am 02/12/23 10:07 Consult Physician Routine Consulting Provider: Truman Nunez Consult Reason/Comments: anxiety Do you want consulting provider notified?: Yes Primary care physician: [facility] Hospital Course: Diagnosis on discharge: 1. Increased anxiety. Patient started on Ativan psychiatry service is consulted 2. Hyperthyroidism TSH low Synthroid dose decreased to 75 3. Urinary tract infection. Patient started IV Rocephin 4. Hypotension. Cardiac meds currently on hold cardiology services consulted 5. Bradycardia. 2-D echo ordered 6. History of COPD no exacerbation at this time 7. History of GERD 8. History of rheumatoid arthritis 9. History of hypothyroidism 10. History of sleep apnea currently uses CPAP machine 11. History of pacemaker and AICD placement 12. History of heart catheterization 13. Nicotine dependence. Patient educated greater than 3 minutes on complete smoking cessation nicotine patch ordered Hospital course: This is a 67-year-old female patient who presented with concerns of increased shakiness bleed to be secondary from anxiety. Patient was seen by PCP in which her Synthroid dose was decreased. Patient was also taken off her Abilify and given Xanax to try to aid in the symptoms patient has a past medical history of anxiety, hyperthyroidism, pacer, RA, nicotine dependence and sleep apnea. Chest x-ray completed showing no acute process correlate for COPD. TSH low at 0.015. UA Positive Infection. Upon arrival patient was found to be hypotensive with a blood pressure 85/64. Heart rate also low at 42. At this time patient admitted patient started on IV Rocephin for UTI, Ativan for anxiety. Cardiology services consulted home cardiac medications currently on hold. We'll also patent decrease patient's Synthroid dose to 75. Psychiatry services also consulted for increased anxiety. At this time patient denies chest pain or shortness of breath. Denies nausea vomiting or diarrhea. Denies any urinary burning or frequency. Is complaining about shakiness. On 02/13/2023 patient was seen and examined on the medical floor she is alert and oriented 3 in no apparent distress she is still feeling anxious otherwise she d enies any complaints, there is no fever or chills no headache or dizziness no chest pain no shortness of breath no cough, no nausea or vomiting no abdominal pain no diarrhea no blood in the stools no burning with urination no frequency or urgency no hematuria. Patient was evaluated by psychiatry, Paxil Xanax and Ativan were discontinued, Cymbalta, Seroquel, and post spot where added to her medication regimen. Synthroid dose was decreased to 75 g during this admission. Patient had evidence of urinary tract infection she was given ceftriaxone 1 g IV daily during this admission, she was given a prescription for Ceftin 500 mg twice daily for 5 more days at the time of discharge Follow-up in the office within one week Patient Condition at Discharge: Serious Plan - Discharge Summary New Discharge Prescriptions: New busPIRone HCl [Buspar] 15 mg PO TID PRN tab PRN Reason: Anxiety DULoxetine HCL [Cymbalta] 30 mg PO BID cap Nicotine 14Mg/24Hr Patch [Habitrol] 1 patch TRANSDERM DAILY patch carvediloL [Coreg] 3.125 mg PO BID-W/MEALS tab QUEtiapine [SEROquel] 25 mg PO HS tab QUEtiapine [SEROquel] 25 mg PO BID PRN tab PRN Reason: Agitation Or Acute Anxiety Levothyroxine Sodium [Synthroid] 75 mcg PO DAILY@0630 tab cefUROXime axetiL [Cefuroxime] 500 mg PO BID 5 Days #10 tab Continue Spironolactone [Aldactone] 25 mg PO DAILY Losartan Potassium 25 mg PO DAILY traMADol HCL [Ultram] 50 mg PO Q8HR PRN PRN Reason: Pain Furosemide [Lasix] 40 mg PO BID Albuterol Inhaler [Ventolin Hfa Inhaler] 1 - 2 puff INHALATION RT-Q6H PRN PRN Reason: Shortness Of Breath Potassium Chloride ER [K-Dur 10] 10 meq PO DAILY Nystatin 100,000 Unit/ml Susp [Mycostatin Oral Susp] 5 ml PO DAILY Simvastatin [Zocor] 80 mg PO DAILY Budesonide/Glycopyr/Formoterol [Breztri Aerosphere Inhaler] 2 puff INHALATION RT-BID Omeprazole 20 mg PO BID Discontinued carvediloL [Carvedilol] 6.25 mg PO BID PARoxetine HCL 40 mg PO DAILY Levothyroxine Sodium [Synthroid] 88 mcg PO DAILY ALPRAZolam [Xanax] 1 mg PO TID PRN PRN Reason: Anxiety Discharge Medication List Losartan Potassium 25 mg PO DAILY 08/09/14 [History] Spironolactone [Aldactone] 25 mg PO DAILY 08/09/14 [History] Furosemide [Lasix] 40 mg PO BID 09/28/16 [History] traMADol HCL [Ultram] 50 mg PO Q8HR PRN 09/28/16 [History] Albuterol Inhaler [Ventolin Hfa Inhaler] 1 - 2 puff INHALATION RT-Q6H PRN 02/10/18 [History] Potassium Chloride ER [K-Dur 10] 10 meq PO DAILY 02/25/19 [History] Budesonide/Glycopyr/Formoterol [Breztri Aerosphere Inhaler] 2 puff INHALATION RT-BID 02/11/23 [History] Nystatin 100,000 Unit/ml Susp [Mycostatin Oral Susp] 5 ml PO DAILY 02/11/23 [History] Omeprazole 20 mg PO BID 02/11/23 [History] Simvastatin [Zocor] 80 mg PO DAILY 02/11/23 [History] DULoxetine HCL [Cymbalta] 30 mg PO BID cap 02/13/23 [Rx] Levothyroxine Sodium [Synthroid] 75 mcg PO DAILY@0630 tab 02/13/23 [Rx] Nicotine 14Mg/24Hr Patch [Habitrol] 1 patch TRANSDERM DAILY patch 02/13/23 [Rx] QUEtiapine [SEROquel] 25 mg PO BID PRN tab 02/13/23 [Rx] QUEtiapine [SEROquel] 25 mg PO HS tab 02/13/23 [Rx] busPIRone HCl [Buspar] 15 mg PO TID PRN tab 02/13/23 [Rx] carvediloL [Coreg] 3.125 mg PO BID-W/MEALS tab 02/13/23 [Rx] cefUROXime axetiL [Cefuroxime] 500 mg PO BID 5 Days #10 tab 02/13/23 [Rx] Follow up Appointment(s)/Referral(s): [facility], [NON-STAFF] - 1-2 Days (will call to set up appointment, any questions please call agency. ) Aniya Salamanca MD [Primary Care Provider] - 1-2 days
[2023-02-13 11:58] VITALS: BP 118/70; PULSE 66; RESP 18; TEMP 98.6
--- NOTE | 2023-02-13 12:10 | P.PN ---
Subjective HISTORY OF PRESENT ILLNESS: This is a 67-year-old female with a past medical history significant for nonischemic cardiomyopathy with recovered ejection fraction, biventricular ICD implantation, nonsustained ventricular tachycardia, congestive heart failure, hypertension, hyperlipidemia, and nicotine dependence. Patient follows in the office with Dr. Greene. We have been asked to see the patient in consultation for hypotension. Patient examined at the bedside. Patients family members at the bedside. Patient states that she presented to the hospital yesterday because she was having a bad panic attack. The patient states she does have a history of anxiety and panic attacks. She states that she was having shaking of her upper extremities. She states she has been receiving Ativan which did not help her. She states that her primary care physician, Dr. Salamanca, recently discontinued her Abilify. He also decreased her dose of Synthroid. The patient denies having any chest pain or pressure. She denies any shortness of breath. She denies any dizziness or lightheadedness. The patient has had some hypotension during hospitalization with systolic blood pressures ranging between 8096. Her cardiac medications have been placed on hold. The patient states she is a current smoker and smokes 1 pack per day. * EKG reveals ventricular paced rhythm * Chest xray negative for acute process. Correlate for COPD. * Laboratory data: WBC 8.5. Hemoglobin 12.2. Platelet count 259. Sodium 135. Potassium 3.9. BUN 20. Creatinine 1.01. Troponin negative 1. TSH less than 0.015. Free T4 2 0.33. * Current home cardiac medications include Aldactone 25 mg daily, carvedilol 6.25 mg twice a day, losartan 25 mg daily, Lasix 40 mg twice a day, simvastatin 80 mg daily * Most recent echocardiogram obtained in September 2020 revealing ejection fraction 55% * Cardiac catheterization history: January 2012 revealing normal coronary arteries 02/13/2023 Patient examined this morning at the bedside. Patient denies shortness of breath. She denies chest pain or pressure. She reports anxiety and feels that she is having shaking of her upper extremities. Echocardiogram completed revealing ejection fraction 55-60%, mild mitral regurgitation and mild tricuspid regurgitation. Blood pressure is stable with a recent reading of 118/70. PHYSICAL EXAM: VITAL SIGNS: Reviewed. GENERAL: Well-developed in no acute distress. HEENT: Head is normocephalic. Pupils are equal, round. Sclerae anicteric. Mucous membranes of the mouth are moist. Neck supple. No JVD or thyromegaly LUNGS: Respirations even and unlabored. Lungs essentially clear to auscultation bilaterally. HEART: Regular rate and rhythm. S1 and S2 heard. ABDOMEN: Soft. Nondistended. Nontender. EXTREMITIES: Normal range of motion. No clubbing or cyanosis. Peripheral pulses intact. No lower extremity edema NEUROLOGIC: Awake and alert. Oriented x 3. ASSESSMENT: Anxiety with panic attacks Hypotension Iatrogenic hyperthyroidism History of nonischemic cardiomyopathy with recovered EF History of biventricular AICD implantation, [employer] Congestive heart failure with preserved EF, currently euvolemic History of nonsustained ventricular tachycardia COPD Nicotine dependence PLAN: Continue atorvastatin Continue current dose of carvedilol Hold Aldactone, Lasix, and losartan at discharge secondary to hypotension. Will be reevaluated at follow-up appointment to resume these medications. Continue to monitor blood pressure We will sign off. Please reconsult if needed. Nurse practitioner note has been reviewed by physician. Signing provider agrees with the documented findings, assessment, and plan of care. Objective - Vital Signs Vital signs: Vital Signs Temp 98.6 F 02/13/23 11:12 Pulse 66 02/13/23 11:12 Resp 18 02/13/23 11:12 BP 118/70 02/13/23 11:12 Pulse Ox 93 L 02/13/23 11:12 FiO2 Intake & Output 02/12/23 02/13/23 02/13/23 18:59 06:59 18:59 Intake Total 1150 Balance 1150 Weight 72.575 kg Intake: Intake, IV Titration 1150 Amount Sodium Chloride 0.9% 1, 1100 000 ml @ 100 mls/hr IV . Q10H [facility] Rx#:[id number] cefTRIAXone 1 gm In 50 Sodium Chloride 0.9% 50 ml @ 100 mls/hr IVPB Q24H [facility] Rx#:[id number] Other: Voiding Method Toilet Toilet Toilet # Voids 1 - Labs CBC & Chem 7: 02/13/23 05:47 02/13/23 05:47 Labs: Abnormal Lab Results - Last 24 Hours (Table) 02/13/23 02/13/23 Range/Units 05:47 05:47 Hgb 11.5 L (12.0-15.0) d/dL Hct 37.0 L (37.2-46.3) % MCH 26.3 L (27.0-32.0) pg MCHC 31.1 L (32.0-37.0) d/dL RDW 17.2 H (11.5-14.5) % Potassium 3.1 L (3.5-5.5) mmol/L Anion Gap 16.80 H (4.00-12.00) mmol/L BUN 7.8 L (9.0-27.0) mg/dL BUN/Creatinine Ratio 9.75 L (12.00-20.00) Ratio Total Protein 5.7 L (6.2-8.2) d/dL Albumin 3.6 L (3.8-4.9) d/dL Microbiology - Last 24 Hours (Table) 02/11/23 16:19 Urine Culture - Preliminary Urine,Voided Gram Neg Bacilli
== END 2023-02-13 12:45 | disposition home or self-care (01) | DRG 880 ==
LOC: EC 14:06 → 5NMEDONC 17:29
PROVIDERS: ADMIT Internal Medicine; ATTEND Internal Medicine
DX: F41.0 Panic disorder [episodic paroxysmal anxiety] (principal); I42.8 Other cardiomyopathies; I50.32 Chronic diastolic (congestive) heart failure; N39.0 Urinary tract infection, site not specified; I11.0 Hypertensive heart disease with heart failure; E78.5 Hyperlipidemia, unspecified; R00.1 Bradycardia, unspecified; I25.5 Ischemic cardiomyopathy; F32.A Depression, unspecified; F17.210 Nicotine dependence, cigarettes, uncomplicated; F10.21 Alcohol dependence, in remission; E05.80 Other thyrotoxicosis without thyrotoxic crisis or storm; Z95.810 Presence of automatic (implantable) cardiac defibrillator; I95.9 Hypotension, unspecified; E03.9 Hypothyroidism, unspecified; Z71.6 Tobacco abuse counseling; J44.9 Chronic obstructive pulmonary disease, unspecified; M06.9 Rheumatoid arthritis, unspecified; K21.9 Gastro-esophageal reflux disease without esophagitis; B96.1 Klebsiella pneumoniae [K. pneumoniae] as the cause of diseases classified elsewhere; I08.1 Rheumatic disorders of both mitral and tricuspid valves; Z86.74 Personal history of sudden cardiac arrest; Z87.11 Personal history of peptic ulcer disease; Z79.899 Other long term (current) drug therapy; Z79.890 Hormone replacement therapy; Z98.42 Cataract extraction status, left eye; Z98.41 Cataract extraction status, right eye; Z91.048 Other nonmedicinal substance allergy status
CPT/HCPCS: 36415; 71046; 80053; 81001; 83735; 84439; 84443; 84484; 85025; 85610; 85730; 87077; 87086; 87186; 93005; 93306; 96361; 96374; 96375; 99285

== ENCOUNTER 2023-06-21 15:46 | Emergency (ER) | payer MEDICARE, OTHER ==
[2023-06-21 16:07] VITALS: RESP 16; TEMP 98.1
--- NOTE | 2023-06-21 16:20 | ED ---
ENT HPI - General Source: patient, family, RN notes reviewed Mode of arrival: ambulatory Limitations: no limitations <Yumiko Abernathy - Last Filed: 06/29/23 18:27> - General Source: RN notes reviewed, old records reviewed - History of Present Illness MD complaint: sore throat, ear pain -: days(s) Severity: mild Severity scale (1-10): 2 Consistency: constant Improves with: none Worsens with: swallowing Associated Symptoms: cough, sore throat, rhinorrhea <Eric Richey - Last Filed: 06/30/23 11:53> - General Chief complaint: ENT Stated complaint: Sore Throat Time Seen by Provider: 06/21/23 16:19 - History of Present Illness Initial comments: Patient is a 68-year-old female presented ER [facility] and a sore throat. Patient states going on for about 3 weeks. Patient states she was supposed to Covid she does endorse fevers, chills and cough. (Yumiko Abernathy) This is a 68-year-old female to the emergency department for a sore throat ear pain runny nose congestion exposure to coronavirus worried that she may have coronavirus although she does persistently nose denies significant history of ALLERGIES, no chest pain no shortness of breath. No known fevers (Eric Richey) - Related Data Home Medications Medication Instructions Recorded Confirmed Losartan Potassium 25 mg PO DAILY 08/09/14 02/11/23 Spironolactone [Aldactone] 25 mg PO DAILY 08/09/14 02/11/23 Furosemide [Lasix] 40 mg PO BID 09/28/16 02/11/23 traMADol HCL [Ultram] 50 mg PO Q8HR PRN 09/28/16 02/11/23 Albuterol Inhaler [Ventolin Hfa 1 - 2 puff INHALATION RT-Q6H PRN 02/10/18 02/11/23 Inhaler] Potassium Chloride ER [K-Dur 10] 10 meq PO DAILY 02/25/19 02/11/23 Budesonide/Glycopyr/Formoterol 2 puff INHALATION RT-BID 02/11/23 02/11/23 [Breztri Aerosphere Inhaler] Nystatin 100,000 Unit/ml Susp 5 ml PO DAILY 02/11/23 02/11/23 [Mycostatin Oral Susp] Omeprazole 20 mg PO BID 02/11/23 02/11/23 Simvastatin [Zocor] 80 mg PO DAILY 02/11/23 02/11/23 Previous Rx's Medication Instructions Recorded DULoxetine HCL [Cymbalta] 30 mg PO BID cap 02/13/23 Levothyroxine Sodium [Synthroid] 75 mcg PO DAILY@0630 tab 02/13/23 Nicotine 14Mg/24Hr Patch [Habitrol] 1 patch TRANSDERM DAILY patch 02/13/23 QUEtiapine [SEROquel] 25 mg PO BID PRN tab 02/13/23 QUEtiapine [SEROquel] 25 mg PO HS tab 02/13/23 busPIRone HCl [Buspar] 15 mg PO TID PRN tab 02/13/23 carvediloL [Coreg] 3.125 mg PO BID-W/MEALS tab 02/13/23 cefUROXime axetiL [Cefuroxime] 500 mg PO BID 5 Days #10 tab 02/13/23 Allergies Allergy/AdvReac Type Severity Reaction Status Date / Time elastic Allergy Rash/Hives Uncoded 02/11/23 19:04 Review of Systems ROS Other: All systems not noted in ROS Statement are negative. <Yumiko Abernathy - Last Filed: 06/29/23 18:27> ROS Other: All systems not noted in ROS Statement are negative. <Eric Richey - Last Filed: 06/30/23 11:53> ROS Statement: Those systems with pertinent positive or pertinent negative responses have been documented in the HPI. Past Medical History Past Medical History: COPD, GERD/Reflux, Rheumatoid Arthritis (RA), Sleep Apnea/CPAP/BIPAP, Thyroid Disorder Additional Past Medical History / Comment(s): USES C-PAP MACHINE, STATES HX OF STOMACH ULCERS, SEE DR HALLMAN'S H&P History of Any Multi-Drug Resistant Organisms: None Reported Past Surgical History: AICD, Heart Catheterization, Pacemaker Additional Past Surgical History / Comment(s): defibilator, bilateral cateract 04/2021 Past Anesthesia/Blood Transfusion Reactions: No Reported Reaction, Motion Sickness Type of Cardiac Device: AICD Device Placement Date:: 2012 Past Psychological History: Anxiety, Depression Smoking Status: Current every day smoker Past Alcohol Use History: None Reported Past Drug Use History: None Reported - Past Family History Mother Family Medical History: No Reported History <Yumiko Abernathy - Last Filed: 06/29/23 18:27> General Exam Limitations: no limitations <Yumiko Abernathy - Last Filed: 06/29/23 18:27> General appearance: alert, in no apparent distress Head exam: Present: atraumatic, normocephalic, normal inspection Eye exam: Present: normal appearance, PERRL, EOMI. Absent: scleral icterus, conjunctival injection, periorbital swelling ENT exam: Present: normal exam, mucous membranes moist Neck exam: Present: normal inspection. Absent: tenderness, meningismus, lymphadenopathy Respiratory exam: Present: normal lung sounds bilaterally. Absent: respiratory distress, wheezes, rales, rhonchi, stridor Cardiovascular Exam: Present: regular rate, normal rhythm, normal heart sounds. Absent: systolic murmur, diastolic murmur, rubs, gallop, clicks GI/Abdominal exam: Present: soft, normal bowel sounds. Absent: distended, tenderness, guarding, rebound, rigid Extremities exam: Present: normal inspection, full ROM, normal capillary refill. Absent: tenderness, pedal edema, joint swelling, calf tenderness Back exam: Present: normal inspection Neurological exam: Present: alert, oriented X3, CN II-XII intact Psychiatric exam: Present: normal affect, normal mood Skin exam: Present: warm, dry, intact, normal color. Absent: rash <Eric Richey - Last Filed: 06/30/23 11:53> - General Exam Comments Initial Comments: Visual Physical Exam Vital signs reviewed General: Well-appearing, nontoxic, no acute distress. Head: Normocephalic, atraumatic Eyes: PERRLA, EOMI ENT: Airway patent Chest: Nonlabored breathing Skin: No visual rash, normal skin tone Neuro: Alert and oriented 3 Musculoskeletal: No gross abnormalities (Yumiko Abernathy) Course <Eric Richey - Last Filed: 06/30/23 11:53> Vital Signs 06/21/23 06/21/23 15:54 18:16 Temperature 98.1 F Pulse Rate 87 83 Respiratory 16 16 Rate Blood Pressure 117/75 110/66 O2 Sat by Pulse 96 98 Oximetry - Reevaluation(s) Reevaluation #1: Medical records reviewed (Eric Richey) Reevaluation #2: Patient symptoms are unchanged (Eric Richey) Reevaluation #3: Patient informed results and questions answered (Eric Richey) Reevaluation #4: Was pt. sent in by a medical professional or institution ([facility], JUVENILE OFFICER, urgent care, hospital, or longterm...) When possible be specific @ -no Did you speak to anyone other than the patient for history (EMS, parent, family, police, friend...)? What history was obtained from this source @ -no Did you review nursing and triage notes (agree or disagree)? Why? @ -agree Are old charts reviewed (outside hosp., previous admission, EMS record, old EKG, old radiological studies, urgent care reports/EKG's, longterm records)? Report findings @ -yes Differential Diagnosis (chest pain, altered mental status, abdominal pain women, abdominal pain men, vaginal bleeding, weakness, fever, dyspnea, syncope, headache, dizziness, GI bleed, back pain, seizure, CVA, palpatations, mental health, musculoskeletal)? @ -prior EKG interpreted by me (3pts min.). @ -no X-rays interpreted by me (1pt min.). @ -yes negative for acute disease CT interpreted by me (1pt min.). @ -no U/S interpreted by me (1pt. min.). @ -no What testing was considered but not performed or refused? (CT, X-rays, U/S, labs)? Why? @ -none What meds were considered but not given or refused? Why? @ -none Did you discuss the management of the patient with other professionals (pro fessionals i.e. [facility], JUVENILE OFFICER, lab, RT, psych nurse, social worker aide, element setter, teacher, job placement officer, comp field case manager)? Give summary @ -no Was smoking cessation discussed for >3mins.? @ -no Was critical care preformed (if so, how long)? @ -no Were there social determinants of health that impacted care today? How? (Homelessness, low income, unemployed, alcoholism, drug addiction, transportation, low edu. Level, literacy, decrease access to med. care, prison, rehab)? @ -none Was there de-escalation of care discussed even if they declined (Discuss DNR or withdrawal of care, Hospice)? DNR status @ -no What co-morbidities impacted this encounter? (DM, HTN, Smoking, COPD, CAD, Cancer, CVA, ARF, Chemo, Hep., AIDS, mental health diagnosis, sleep apnea, morbid obesity)? @ -none Was patient admitted / discharged? Hospital course, mention meds given and route, prescriptions, significant lab abnormalities, going to OR and other pertinent info. @ - 68 female to the emergency department for evaluation of sinus pain runny nose drainage upper respiratory infection significant sinusitis. Patient is in no distress has no acute complaints here in the urine can be discharged home Discharge Undiagnosed new problem with uncertain prognosis? @ -no Drug Therapy requiring intensive monitoring for toxicity (Heparin, Nitro, Insulin, Cardizem)? @ -no Were any procedures done? @ -no Diagnosis/symptom? @ -Acute viral sinusitis Acute, or Chronic, or Acute on Chronic? @ -Acute Uncomplicated (without systemic symptoms) or Complicated (systemic symptoms)? @ -Complicated Side effects of treatment? @ -no Exacerbation, Progression, or Severe Exacerbation? @ -exacerbation Poses a threat to life or bodily function? How? (Chest pain, USA, OR, pneumonia, PE, COPD, DKA, ARF, appy, cholecystitis, CVA, Diverticulitis, Homicidal, Suicidal, threat to staff... and all critical care pts) @ -no (Eric Richey) Medical Decision Making <Yumiko Abernathy - Last Filed: 06/29/23 18:27> - Radiology Data Radiology results: report reviewed (Chest x-rays negative for acute disease), image reviewed <Eric Richey - Last Filed: 06/30/23 11:53> - Medical Decision Making I performed the quick note portion of the exam. Electronically signed by Yumiko Abernathy PA-C (Yumiko Abernathy) 68 female to the emergency department for evaluation of sinus pain runny nose drainage upper respiratory infection significant sinusitis. Patient is in no distress has no acute complaints here in the urine can be discharged home (Eric Richey) - Lab Data Lab Results 06/21/23 06/21/23 Range/Units 16:23 16:23 Influenza Type A (PCR) Not Detected (Not Detectd) Influenza Type B (PCR) Not Detected (Not Detectd) RSV (PCR) Not Detected (Not Detectd) SARS-CoV-2 (PCR) Not Detected (Not Detectd) Group A Strep (PCR) NOT DETECTED (Not Detectd) Disposition <Yumiko Abernathy - Last Filed: 06/29/23 18:27> Is patient prescribed a controlled substance at d/c from ED?: No Time of Disposition: 19:00 <Eric Richey - Last Filed: 06/30/23 11:53> Clinical Impression: Acute viral pharyngitis, Acute sinusitis, Acute viral sinusitis Disposition: HOME SELF-CARE Condition: Good Instructions (If sedation given, give patient instructions): Sinusitis (ED) Referrals: Mandy Peetr MD [Primary Care Provider] - 1-2 days
--- NOTE | 2023-06-21 16:42 | XR ---
EXAMINATION TYPE: XR chest 2V DATE OF EXAM: 06/21/2023 COMPARISON: 02/11/2023 HISTORY: Shortness of breath TECHNIQUE: Frontal and lateral views of the chest are obtained. FINDINGS: Scattered senescent parenchymal changes noted. Hyperinflation compatible with COPD. No evidence for infiltrate. No evidence for atelectasis. Heart size is stable. Mediastinal structures are stable and grossly unremarkable. No evidence for hilar prominence. Degenerative changes dorsal spine. IMPRESSION: 1. No evidence for acute pulmonary disease.
[2023-06-21 18:39] VITALS: BP 110/66; PULSE 83
== END 2023-06-21 19:15 | disposition home or self-care (01) ==
LOC: EC 15:46
DX: J02.8 Acute pharyngitis due to other specified organisms (principal); J01.90 Acute sinusitis, unspecified; J44.9 Chronic obstructive pulmonary disease, unspecified; G47.30 Sleep apnea, unspecified; K21.9 Gastro-esophageal reflux disease without esophagitis; F17.200 Nicotine dependence, unspecified, uncomplicated; Z86.59 Personal history of other mental and behavioral disorders; Z20.822 Contact with and (suspected) exposure to COVID-19; Z79.899 Other long term (current) drug therapy; Z88.8 Allergy status to other drugs, medicaments and biological substances
CPT/HCPCS: 71046; 87636; 87651; 99284

== ENCOUNTER → 2023-09-16 | Outpatient (CLI) | payer MEDICARE, OTHER ==
[2023-09-16 18:17] LABS: HCT 43.8 % (37.2-46.3); HGB 13.7 g/dL (12.0-15.0); MCH 28.8 pg (27.0-32.0); MCHC 31.3 g/dL (32.0-37.0); Mean Platelet Volume 11.5 FL (9.5-12.2); NRBC Per 100 WBC 0 X 10*3/uL (0.00-0.01); Platelet Count 285 X 10*3/uL (140-440); RBC 4.76 X 10*6/uL (4.10-5.20); RDW 19.3 % (11.5-14.5); WBC 7.41 X 10*3/uL (4.50-10.00)
[2023-09-16 18:32] LABS: Blood Urea Nitrogen 11.3 mg/dL (9.0-27.0); Carbon Dioxide 29.3 mmol/L (21.6-31.8); Chloride 102 mmol/L (96-109); Potassium 4.5 mmol/L (3.5-5.5); Sodium 140 mmol/L (135-145)
== END | disposition home or self-care (01) ==
LOC: LABPAT 13:54
PROVIDERS: ATTEND Internal Medicine Clinical Cardiac Electrophysiology
DX: Z01.812 Encounter for preprocedural laboratory examination (principal); I50.22 Chronic systolic (congestive) heart failure; I47.29 Other ventricular tachycardia; I42.0 Dilated cardiomyopathy
CPT/HCPCS: 36415; 80051; 82565; 84520; 85027

== ENCOUNTER 2023-09-30 12:49 | Day surgery (SDC) | payer MEDICARE, OTHER ==
[2023-09-29 09:00] VITALS: BMI 25.7
[2023-09-30] MEDS: SODIUM CHLORIDE 0.9% 1,000 ML IV SCH ×2 (13:17→16:53)
[2023-09-30] MEDS: MIDAZOLAM 2 MG/2 ML VIAL IVP ONE (13:30)
[2023-09-30] MEDS ORDERED: MIDAZOLAM 2 MG/2 ML VIAL ONE (14:23)
[2023-09-30] MEDS ORDERED: fentaNYL (PF) 50 MCG/ML 2 ML AMP ONE (14:23)
[2023-09-30] MEDS ORDERED: PROPOFOL 10 MG/ML 20 ML VIAL IV ONE (14:23)
[2023-09-30] MEDS: ceFAZolin 1 GM in SODIUM CHLORIDE 0.9% IRRIG BTL 250 ML IRRIGATION PRN (14:33)
[2023-09-30] MEDS ORDERED: LIDOCAINE 1% INJ 10MG/ML (20 ML MDV) ONE (14:46)
[2023-09-30] MEDS: LIDOCAINE 1% INJ 10MG/ML (20 ML MDV) SQ ONE (15:04)
[2023-09-30 15:19] LABS: T4, Free (Free Thyroxine) 2.12 ng/dL (0.78-2.19)
--- NOTE | 2023-09-30 16:15 | P.EPPROC ---
- EP Procedure Note Electrophysiology Procedure Note: Diagnosis Cardiomyopathy, chronic, nonischemic Congestive heart failure [place] [employer] class class Wide QRS left bundle branch block pattern On guide line directed medical treatment for years BiV ICD generator at [facility] Procedure: Biventricular ICD generator change Fluoroscopy of the leads Result: Cinefluoroscopy revealed evidence of twiddler's syndrome. All 3 leads in the pocket were braided Atrial and RV leads in stable position LV lead tip at the base of the LV Successful biventricular ICD change Atrial lead: Pacing threshold 2 V at point 5 ms, P waves 3.7 mV and pacing impedance 590 ohms RV ICD lead: Pacing threshold 0.5 V at point 5 ms, R waves 12 mV and pacing impedance 780 ohms Left ventricular lead: Pacing threshold 0.5 V at point 5 ms LV tip-RV coil, pacing impedance 430 ohms High-voltage impedance 69 ohms Procedure details: Patient was brought to the EP lab in a fasting state. Written informed consent was obtained prior to the procedure. Options, pros and cons, benefits and risks and complications discussed with patient in detail prior to the procedure (shared decision making) previously. Importance of continuing medical treatment emphasized previously. Alternatives discussed previously. The left pectoral area was prepped and draped as a protocol. IV antibiotics administered 1% lidocaine was used for local anesthesia. A 4 cm incision was made parallel to the deltopectoral groove, about 1.5 cm medial to it. The incision was carried down to the level of the pectoralis muscle and the subfascial pocket was made. Hemostasis was assured. Old generator explanted, [employer]. Pocket irrigated with antibiotic solution. Antibiotic pouch placed Leads connected to the new biventricular ICD generator, Urena. Wound closed in 3 layers and dressed per protocol Biventricular ICD interrogated and programmed. Appropriate pacing parameters, antitachycardia therapies with antitachycardia pacing cardioversion defibrillations programmed. AV delay and biventricular pacing parameters programmed to achieve optimal pacing Patient tolerated the procedure well without any acute complications. See scanned device report in EMR for lead details new generator was an Urena unify Assura model #3357-40 C, [employer] defibrillator
[2023-09-30] MEDS: LACTATED RINGERS 1,000 ML IV SCH (16:53)
[2023-09-30] MEDS: ACETAMINOPHEN IV (For NPO) 1,000 MG in EMPTY BAG 1 BAG IVPB ONE (17:22)
[2023-09-30] MEDS: ALPRAZolam 0.5 MG TAB PO ONE (20:35)
[2023-10-01] MEDS: ACETAMINOPHEN TAB 325 MG TAB PO PRN (00:55)
[2023-10-01 06:31] VITALS: PULSE 62
[2023-10-01 08:19] VITALS: BP 111/72; RESP 15; TEMP 98
--- NOTE | 2023-10-02 11:55 | P.DS ---
Providers Attending physician: Ender Greene Primary care physician: Tani Hayshven [facility] Course: Patient is doing well. No hematoma no swelling minimal soakage at the ICD generator change site Normal heart sounds Normal breath sounds Blood pressure is normal. 114/70 pulse rate in the 60s afebrile Impression history of nonischemic cardiomyopathy with a left bundle branch block and congestive heart failure Status post BiV ICD Improvement in LV systolic function with BiV pacing Underlying baseline ejection fraction was about 30 to 35% in the past Successful biventricular ICD generator change Cinefluoroscopy of the leads revealed evidence for twiddler's syndrome No obvious fracture or breaks noted either visually or on fluoroscopy Device interrogation and lead interrogation showed stable numbers This was explained to the family They understand that in such an event the leads was not to be straightened out or 1 point because that would precipitate lead fracture However with this finding the risk of future lead failure is high Plan - Discharge Summary Discharge Rx Participant: Yes New Discharge Prescriptions: No Action Albuterol Inhaler [Ventolin Hfa Inhaler] 1 - 2 puff INHALATION RT-Q6H PRN PRN Reason: Shortness Of Breath Atorvastatin [Lipitor] 40 mg PO HS carvediloL [Coreg] 6.25 mg PO BID-W/MEALS PARoxetine [Paxil] 20 mg PO DAILY ALPRAZolam [Xanax] 1 mg PO TID Levothyroxine Sodium [Synthroid] 100 mcg PO DAILY@0630 Discharge Medication List Albuterol Inhaler [Ventolin Hfa Inhaler] 1 - 2 puff INHALATION RT-Q6H PRN 02/10/18 [History] ALPRAZolam [Xanax] 1 mg PO TID 09/29/23 [History] Atorvastatin [Lipitor] 40 mg PO HS 09/29/23 [History] Levothyroxine Sodium [Synthroid] 100 mcg PO DAILY@0630 09/29/23 [History] carvediloL [Coreg] 6.25 mg PO BID-W/MEALS 09/29/23 [History] PARoxetine [Paxil] 20 mg PO DAILY 09/30/23 [History] Follow up Appointment(s)/Referral(s): Ender Greene MD [STAFF PHYSICIAN] - 1 Week (Device clinic in 1 week Follow-up with Dr. Greene in 4 months has prev scheduled appt for october 07) Activity/Diet/Wound Care/Special Instructions: PATIENT EDUCATION MATERIAL Instructions following a heart rhythm device implant. 1. Keep dressing DRY for 5 DAYS. You may cover the area with Saran or Cling Wrap, prior to a shower. 2. The dressing will be removed in the Device Clinic at [facility]. Absorbable sutures were used to close the wound. 3. Avoid raising the left arm above the shoulder level. 4 week restriction 4. Avoid arm movements, like backscratching, rubbing the head, or pulling on a cord. 4 weeks restriction 5. Gentle range of motion movements of the shoulder, closest to the incision should be performed to avoid a frozen shoulder. (Pendulum exercises of the shoulder) 6. The opposite arm may be used freely. 7. Avoid driving for 7 days. 8. Avoid activities such as golfing, swimming, weed whacking, lifting more than 10 pounds weight, bowling, gymnastics and weight training/lifting. (6 weeks restriction) 9. Activities such as wood chopping with an axe, pull-ups in the gymnasium, power lifting, arc-welding, being close to home induction cooktops will always be a problem. 10. Arm sling is only a reminder not to raise the arm above the head. You do not need to keep the arm completely immobilized. Your free to move the arm and use it and for normal activities. In case of any problems, please call [facility], Melissa Oliva, @ [phone], Attention: Device Clinic Device clinic follow-up in 5 days Follow-up with primary director of vital statistics in 2-3 months Discharge Disposition: HOME SELF-CARE
== END 2023-10-01 08:11 | disposition home or self-care (01) ==
LOC: CATHEP 12:49 → 3SCARD 16:04 → CATHEP 10-01 08:11
PROVIDERS: ATTEND Internal Medicine Clinical Cardiac Electrophysiology
DX: Z45.02 Encounter for adjustment and management of automatic implantable cardiac defibrillator (principal); I42.8 Other cardiomyopathies; I44.7 Left bundle-branch block, unspecified; I11.0 Hypertensive heart disease with heart failure; I50.9 Heart failure, unspecified; E78.5 Hyperlipidemia, unspecified; I47.19 Other supraventricular tachycardia; Z79.899 Other long term (current) drug therapy
CPT/HCPCS: 33264; 84439; 84443; C1882; J2250; J0690 ×2; J2001; J3010; J0131; J2704

== ENCOUNTER → 2023-12-02 | Outpatient (CLI) | payer MEDICARE, OTHER ==
--- NOTE | 2023-12-02 14:23 | US ---
EXAMINATION TYPE: US venous doppler duplex LE BI DATE OF EXAM: 12/02/2023 1:48 PM COMPARISON: NONE CLINICAL INDICATION: Female, 68 years old with history of I73.9 PAD; DVT age 18 due to control. No redness or swelling. SIDE PERFORMED: Bilateral TECHNIQUE: The lower extremity deep venous system is examined utilizing real time linear array sonog carlos with graded compression, doppler sonography and color-flow sonography. VESSELS IMAGED: Common Femoral Vein Deep Femoral Vein Greater Saphenous Vein * Femoral Vein Popliteal Vein Small Saphenous Vein * Proximal Calf Veins (* superficial vessels) Right Leg: Negative for DVT Left Leg: Negative for DVT IMPRESSION: Grayscale, color doppler, spectral doppler imaging performed of the deep veins of the lo wer extremities. There is normal flow, compressibility, vascular waveforms.
== END | disposition home or self-care (01) ==
LOC: RADUSWWP 12:55
PROVIDERS: ATTEND Family Medicine
DX: I73.9 Peripheral vascular disease, unspecified (principal)
CPT/HCPCS: 93970

== ENCOUNTER → 2023-12-07 | Outpatient (CLI) | payer MEDICARE, OTHER ==
--- NOTE | 2023-12-08 19:12 | US ---
EXAMINATION TYPE: US arterial LE single level DATE OF EXAM: 12/07/2023 2:23 PM CLINICAL INDICATION: Female, 68 years old with history of I73.9 PERIPHERAL VASCULAR DISEASE, UNSPECIF IED; PVD History of: Smoker: current Hypertension: n Diabetic: n Hyperlipidemia: y TIA/CVA: n Previous Vascular Surgery: n CAD: n NV: n Vascular Ulcers: n Claudication: n Gangrene: n Doppler Waveforms: Triphasic waveforms are within posterior tibial and dorsalis pedis vessels. Digital arteries. Monopha sic bilaterally. Right Brachial Pressure: 133 Left Brachial Pressure: 148 Ankle-Brachial Indices: Right: 1.06 Left: 1.11 (Vessel hardening > 1.4; Normal 0.9 - 1.4, Moderate 0.7 - 0.9, Severe 0.5-0.7) Toe Brachial Indices: Right: 0.82 Left: 0.85 IMPRESSION: 1. There may be some moderate narrowing of the distal digital arteries.
== END | disposition home or self-care (01) ==
LOC: RADUSWWP 13:49
PROVIDERS: ATTEND Family Medicine
DX: I73.9 Peripheral vascular disease, unspecified (principal); E78.5 Hyperlipidemia, unspecified
CPT/HCPCS: 93922

== ENCOUNTER 2024-03-24 10:24 | Day surgery (SDC) | payer MEDICARE, OTHER ==
[2024-03-23 10:08] VITALS: BMI 26.2
--- NOTE | 2024-03-23 18:13 | HP ---
HISTORY AND PHYSICAL CHIEF COMPLAINT: Chronic laryngitis. HISTORY OF PRESENT ILLNESS: This patient is a 68-year-old female, who was recently seen in my office complaining of having noticed a significant change in her voice over the course of the past year. The patient smokes approximately 1 pack of cigarettes per day, but states that she is trying to quit. She is also having soreness in her throat, but denies any referred otalgia. She had a CT scan of the neck and was initially told that she had an abscess, however, the CT scan did not show evidence of an abscess. The patient was subsequently placed on Augmentin and she felt that the soreness improved. She denied any difficulty swallowing. She is quite concerned about the significant hoarseness of her voice. At the time that she was seen in my office, clinical examination, which included an indirect laryngoscopy using a headlight mirror, revealed no suspicious lesions of the floor of the mouth, right or left piriform sinus or base of the tongue, vallecula, or epiglottis. However, there appeared to be a lesion located on the left true vocal cord. Because of this patient's history of heavy smoking and progressive chronic laryngitis, it was recommended that she undergo a suspension microlaryngoscopy with biopsy and possible CO2 laser. PAST MEDICAL HISTORY: Reveals that she has no known allergies to medications. CURRENT MEDICATIONS: Include; 1. Xanax. 2. Amlodipine. 3. Tramadol. 4. Carvedilol. 5. Prilosec. 6. Synthroid. 7. Atorvastatin. REVIEW OF SYSTEMS: CARDIOVASCULAR: Positive for hypertension, ASHD, and cardiac arrhythmia. RESPIRATORY: Positive for COPD/emphysema. GASTROINTESTINAL: Positive for GERD (gastroesophageal reflux disorder). METABOLIC/ENDOCRINE: Positive for hypercholesterolemia and hypothyroidism. Remainder review of systems is unremarkable. PREVIOUS SURGERIES: Include insertion of a pacemaker/defibrillator. The patient smokes 1 pack plus of cigarettes per day. The patient is 1 para, 1 , 0 miscarriage. PHYSICAL EXAMINATION: GENERAL: This patient is a 68-year-old female, who is alert and cooperative. HEENT: The patient is normocephalic. Tympanic membranes are normal. Middle ear space is free of any fluid or infection. Pupils equal, round, reactive to light and accommodation. Extraocular movements within normal limits. Intranasal examination reveals moderate septal deviation with compensatory hypertrophy of the inferior turbinates and a moderate amount of mucus on the mucous membrane, draining down the posterior pharynx. Examination of oropharynx is unremarkable. Indirect laryngoscopy findings are described above in history of present illness and will not be repeated here. Remainder of the head and neck exam is unremarkable. CHEST/CARDIOVASCULAR: Both lung silveira are clear to percussion and auscultation. The patient is in regular sinus rhythm. S1, S2 are present without any murmurs, S3s, or S4s. Peripheral pulses are bilaterally symmetrical and within normal limits. ABDOMEN: There is no evidence any masses, megaly, or tenderness. The abdomen is soft. SKIN: Unremarkable. MUSCULOSKELETAL/NEUROLOGIC: Within normal limits. PELVIC/RECTAL: This should be printed. The pelvic/rectal exam is deferred at this time because the patient has it done on a regular basis at her family physician's office. The remainder of physical exam is essentially unremarkable. IMPRESSION: Chronic laryngitis, laryngeal lesion. PLAN: The patient is scheduled to undergo a suspension microlaryngoscopy with biopsy and possible CO2 laser under general anesthesia. Attention, RNs: I have not ordered any pre-surgical prophylactic antibiotics for this patient. If the pharmacy department sends any pre-surgical prophylactic antibiotics to the pre-surgical area for this patient, that order should be cancelled, and the patient should be returned to the recovery room. Please make sure that the patient's account is credited appropriately. I have ordered for this patient to receive 1000 mg of Ofirmev IV to be given once an IV line has been established. I have discussed the risks, benefits and alternative therapies for the above-mentioned procedure and for both sedation/analgesia as well as necessary blood product administration, if indicated, as they pertain to this patient. The patient has indicated her understanding and acceptance of the risks and procedures discussed. MMODL / IJN: [id number] /
[~2024-03-24 10:24] MED LIST changes: +HYDROmorphone 0.5 MG/0.5 ML SYRINGE IVP PRN; +LACTATED RINGERS 1,000 ML IV SCH; +MIDAZOLAM 2 MG/2 ML VIAL IV PRN; +Pre Op ABX Message 1 EACH MISC MISCELLANE ONE; -SODIUM CHLORIDE 0.9% 1,000 ML IV SCH
[2024-03-24] MEDS: IV FLUID CONTINUATION 1,000 ML IV ONE (10:44)
[2024-03-24] MEDS: DEXAMETHASONE SOD PHOSPHATE 4 MG/ML 1 ML VIAL IV ONE (10:55)
[2024-03-24] MEDS: ACETAMINOPHEN IV (For NPO) 1,000 MG in EMPTY BAG 1 BAG IVPB ONE (10:56)
[2024-03-24] MEDS: ONDANSETRON 4 MG/2 ML VIAL IVP ONE (10:56)
[2024-03-24] MEDS ORDERED: fentaNYL (PF) 50 MCG/ML 2 ML AMP ONE (11:52)
[2024-03-24] MEDS ORDERED: MIDAZOLAM 2 MG/2 ML VIAL ONE (11:52)
[2024-03-24] MEDS ORDERED: PROPOFOL 10 MG/ML 20 ML VIAL IV ONE (11:52)
[2024-03-24] MEDS ORDERED: DEXAMETHASONE SOD PHOSPHATE 10 MG/ML 1 ML VIAL ONE (11:52)
[2024-03-24 13:08] VITALS: TEMP 97.1
[2024-03-24 13:41] VITALS: RESP 16
[2024-03-24 13:54] VITALS: BP 109/72; PULSE 54
--- NOTE | 2024-03-27 18:48 | OP ---
OPERATIVE REPORT DATE OF SERVICE : 03/24/2024 PREOPERATIVE DIAGNOSIS: Chronic laryngitis with left true vocal cord lesion. POSTOPERATIVE DIAGNOSIS: Chronic laryngitis with left true vocal cord lesion, final pathology is pending. ANESTHESIA: General. OPERATIVE PROCEDURE: Suspension microlaryngoscopy with multiple biopsies of the left true vocal cord, left arytenoid, epiglottis, and left piriform sinus. COMPLICATIONS: None. ESTIMATED BLOOD LOSS: Less than 4 mL. DESCRIPTION OF PROCEDURE: The patient was placed on the operating table in supine position and after uneventful induction and endotracheal intubation, satisfactory general anesthesia was obtained. Next, the patient was draped in usual customary fashion, following which the laryngoscope was introduced into the patient's oropharynx and the entire hypopharynx including the floor of the mouth, right and left pyriform sinus, base of tongue, valleculae and epiglottis were inspected. Initially, it was found that there was a bulky, exophytic, friable lesion located mainly on the left true vocal cord with extension onto the left arytenoid and spillage into the left piriform sinus. In addition to this, the lesion also appeared to involve the left aryepiglottic fold as well as the epiglottis. Therefore, using a large straight biopsy forceps, multiple biopsies were taken of the left piriform sinus, left arytenoid fold, and epiglottis. These specimens were sent separately in formalin for permanent sectioning. Next, the tip of the laryngoscope was positioned at the laryngeal introitus and was subsequently suspended on the patient's chest using a Lewy apparatus. Next, using the Zeiss operating microscope and under direct visualization, it was evident that there was a large exophytic friable bulky lesion involving mostly the posterior aspect of the left true vocal cord and the anterior portion of the left arytenoid. However, the left cord does not appear to be fixed. Next, using microlaryngeal biopsy forceps, multiple biopsies were taken of the left true vocal cord lesion and the left arytenoid lesion. Again, these specimens were sent separately in formalin for permanent sectioning. Because of the bulk size of the left true vocal cord lesion, it was decided to use the CO2 laser in an effort to debulk this lesion somewhat and therefore improve the patient's airway. This was done with a CO2 laser on the appropriate settings and after completion it was noted that the patient's airway was improved. However, majority of lesion was still present on all of the above mentioned structures including the epiglottis, left true vocal cord, left arytenoid with spillage into the left piriform sinus. This lesion is highly suspicious for a malignancy. The patient was given 10 mg of Decadron intraoperatively to reduce any postoperative laryngeal edema. At this point, the procedure was terminated. There were no intraoperative complications. The patient tolerated the procedure well and was returned to the recovery room in satisfactory condition. Final pathology is pending. MMODL / IJN: [id number] /
== END 2024-03-24 14:38 | disposition home or self-care (01) ==
LOC: OR 10:24
PROVIDERS: ATTEND Otolaryngology
DX: J38.2 Nodules of vocal cords (principal); H92.09 Otalgia, unspecified ear; F17.210 Nicotine dependence, cigarettes, uncomplicated; I10 Essential (primary) hypertension; E78.5 Hyperlipidemia, unspecified; J44.9 Chronic obstructive pulmonary disease, unspecified; K21.9 Gastro-esophageal reflux disease without esophagitis; G47.33 Obstructive sleep apnea (adult) (pediatric); E07.9 Disorder of thyroid, unspecified; Z95.810 Presence of automatic (implantable) cardiac defibrillator; Z79.890 Hormone replacement therapy; Z79.899 Other long term (current) drug therapy; Z79.891 Long term (current) use of opiate analgesic; Z79.02 Long term (current) use of antithrombotics/antiplatelets
CPT/HCPCS: 88305; 88342; 88341; 31536; J2250; J1100 ×2; J2405; J3010; J0131; J2704

== ENCOUNTER → 2024-05-04 | Outpatient (CLI) | payer MEDICARE, OTHER ==
--- NOTE | 2024-05-07 19:28 | PE ---
EXAMINATION TYPE: PET CT fusion skull to thigh DATE OF EXAM: 05/04/2024 COMPARISON: CT pelvis 10/27/2019, x-ray soft tissue neck 10/19/2022 Prior PET/CT: No prior at this location HISTORY: Head and neck neoplasm TECHNIQUE: Following the intravenous administration of 9.97 mCi of F-18 FDG, whole body images are p erformed from the skull base to the midthigh. Images are reviewed on the computer in the coronal, ax ial, and sagittal planes. Reconstructed rotating images are created on independent workstation and r eviewed on the computer. A localization and attenuation correction CT is performed in conjunction w ith the PET scan. DLP: 583.41 mGycm SCAN: Initial Blood glucose: 97 mg/dL Average Mediastinum SUV: 2.43 Average Liver SUV: 3.57 FINDINGS: NECK: There is a small left neck node measuring SUV 4.12. Image 38. There is a large focus of radiotracer at the level of the larynx and hypopharynx. This extends to the vocal cord level. There is some crossing of the midline towards the right. The vocal cord level is a symmetric. This has marked elevated SUV, example image 48, SUV 18.51. THORAX: No abnormal uptake within the thoracic cavity. ABDOMEN: No abnormal uptake PELVIS: No abnormal uptake OSSEOUS STRUCTURES: There is a focus of radiotracer within an anterior lateral left rib, image 128, S UV 3.78. LOCALIZATION CT: There is focal asymmetry within the hypopharynx corresponding to the abnormal uptake on PET scan. The prominent lymph node on the left neck correlates with the uptake on PET scan there is some scattered smaller right-sided lymph nodes within the neck. COMPARISON: No pertinent changes within visualized structures previously IMPRESSION: 1. Abnormal uptake within the left hypopharynx extending to the vocal cord level. This appears to crosstie inspector ss the midline. 2. Uptake within a left neck prominent lymph node jugulodigastric region may be a metastatic lesion. 3. Abnormal uptake within an anterior lateral right rib compatible with a metastatic lesion [facility], , 05/07/2024 7:26 PM
== END | disposition home or self-care (01) ==
LOC: RADPETMAIN 07:57
PROVIDERS: ATTEND Internal Medicine Hematology & Oncology
DX: C32.8 Malignant neoplasm of overlapping sites of larynx (principal)
CPT/HCPCS: 78815

== ENCOUNTER 2024-05-10 19:53 | Emergency (ER) | payer MEDICARE, OTHER ==
[2024-05-10 20:00] VITALS: RESP 18; TEMP 97.8
--- NOTE | 2024-05-10 20:20 | ED ---
General Adult HPI - General Chief complaint: Skin/Abscess/Foreign Body Stated complaint: rash Time Seen by Provider: 05/10/24 20:02 Source: patient Mode of arrival: ambulatory Limitations: no limitations - History of Present Illness Initial comments: 69-year-old female presenting with chief complaint of rash. Patient states that the rash started on her fluid it is now in the bilateral hands and wrists. This is a dry peeling and itching rash. It has been present for about 3 weeks. Rash is not painful and there is no discharge or bleeding. No difficulty breathing or swallowing. No new foods, meds, soaps, lotions, detergents, or other products. No nausea, vomiting, abdominal pain. No fevers or chills. No recent illness. She has been using several different creams prescribed to her by her PCP. - Related Data Home Medications Medication Instructions Recorded Confirmed Albuterol Inhaler [Ventolin Hfa 1 - 2 puff INHALATION RT-Q6H PRN 02/10/18 05/16/24 Inhaler] ALPRAZolam [Xanax] 1 mg PO TID 09/29/23 05/16/24 Levothyroxine Sodium [Synthroid] 100 mcg PO DAILY@0630 09/29/23 05/16/24 carvediloL [Coreg] 6.25 mg PO BID-W/MEALS 09/29/23 05/16/24 PARoxetine [Paxil] 20 mg PO DAILY 09/30/23 05/16/24 Fluticasone/Umeclidin/Vilanter 1 puff INHALATION QAM 03/23/24 05/16/24 [Treleharrison Ellipta 100-62.5-25] Aprepitant [Emend] 40 mg PO DIRECTED 05/16/24 05/16/24 Famotidine 20 mg PO DAILY 05/16/24 05/16/24 HYDROcodone/APAP 5-325MG [[place] 1 tab PO Q6HR PRN 05/16/24 05/16/24 5-325] Lidocacaine/Dephenhydramine 05/16/24 OLANZapine [ZyPREXA] 2.5 mg PO HS 05/16/24 05/16/24 Ondansetron [Zofran] 4 mg PO Q4-6H PRN 05/16/24 05/16/24 amLODIPine [Norvasc] 2.5 mg PO DAILY 05/16/24 05/16/24 Allergies Allergy/AdvReac Type Severity Reaction Status Date / Time elastic Allergy Rash/Hives Uncoded 05/16/24 09:00 Review of Systems ROS Statement: Those systems with pertinent positive or pertinent negative responses have been documented in the HPI. ROS Other: All systems not noted in ROS Statement are negative. Past Medical History Past Medical History: Cancer, COPD, GERD/Reflux, Hypertension, Rheumatoid Arthritis (RA), Sleep Apnea/CPAP/BIPAP, Thyroid Disorder, Vascular Disorder Additional Past Medical History / Comment(s): USES CPAP MACHINE and O2 at 2L at night as well. STATES HX OF STOMACH ULCERS. Current "rash on right foot from flip flops". PAD. History of Any Multi-Drug Resistant Organisms: None Reported Past Surgical History: AICD, Heart Catheterization, Pacemaker Additional Past Surgical History / Comment(s): Defibrillator, bilateral cateract surgery, battery change on AICD/Pacemaker 10/2023. Past Anesthesia/Blood Transfusion Reactions: No Reported Reaction, Motion Sickness Type of Cardiac Device: AICD Device Placement Date:: 2012 Past Psychological History: Anxiety, Depression Smoking Status: Current every day smoker Past Alcohol Use History: None Reported Past Drug Use History: None Reported - Past Family History Brother(s) Family Medical History: Deep Vein Thrombosis (DVT) General Exam Limitations: no limitations General appearance: alert, in no apparent distress Head exam: Present: atraumatic, normocephalic, normal inspection Eye exam: Present: normal appearance, EOMI Neck exam: Present: normal inspection. Absent: meningismus Respiratory exam: Absent: respiratory distress Cardiovascular Exam: Present: regular rate Neurological exam: Present: alert, oriented X3 Psychiatric exam: Present: normal affect, normal mood Skin exam: Present: rash (Dry peeling pruritic rash present on the right foot and bilateral hands) Course Vital Signs 05/10/24 05/10/24 19:58 20:42 Temperature 97.8 F Pulse Rate 79 76 Respiratory 18 18 Rate Blood Pressure 154/85 112/74 O2 Sat by Pulse 98 99 Oximetry Medical Decision Making - Medical Decision Making Was pt. sent in by a medical professional or institution (, PA, PLANNING CONSULTANT, urgent care, hospital, or alf...) When possible be specific @ -No Did you speak to anyone other than the patient for history (EMS, parent, family, police, friend...)? What history was obtained from this source @ -No Did you review nursing and triage notes (agree or disagree)? Why? @ -I reviewed and agree with nursing and triage notes Were old charts reviewed (outside hosp., previous admission, EMS record, old EKG, old radiological studies, urgent care reports/EKG's, alf records)? Report findings @ -No old charts were reviewed Differential Diagnosis (chest pain, altered mental status, abdominal pain women, abdominal pain men, vaginal bleeding, weakness, fever, dyspnea, syncope, headache, dizziness, GI bleed, back pain, seizure, CVA, palpatations, mental health, musculoskeletal)? @ -Differential includes allergic reaction, fungal infection, cellulitis, this is not an all-inclusive list EKG interpreted by me (3pts min.). @ -As above X-rays interpreted by me (1pt min.). @ -None done CT interpreted by me (1pt min.). @ -None done U/S interpreted by me (1pt. min.). @ -None done What testing was considered but not performed or refused? (CT, X-rays, U/S, labs)? Why? @ -None What meds were considered but not given or refused? Why? @ -None Did you discuss the management of the patient with other professionals (professionals i.e. , PA, PLANNING CONSULTANT, lab, RT, psych nurse, social media analyst, beam dyer recessed vat, teacher, loan servicing officer, caser up)? Give summary @ -No Was smoking cessation discussed for >3mins.? @ -No Was critical care preformed (if so, how long)? @ -No Were there social determinants of health that impacted care today? How? (Homelessness, low income, unemployed, alcoholism, drug addiction, transportation, low edu. Level, literacy, decrease access to med. care, fci, rehab)? @ -No Was there de-escalation of care discussed even if they declined (Discuss DNR or withdrawal of care, Hospice)? DNR status @ -No What co-morbidities impacted this encounter? (DM, HTN, Smoking, COPD, CAD, Cancer, CVA, ARF, Chemo, Hep., AIDS, mental health diagnosis, sleep apnea, morbid obesity)? @ -None Was patient admitted / discharged? Hospital course, mention meds given and route, prescriptions, significant lab abnormalities, going to OR and other pertinent info. @ -69-year-old female presented with chief complaint of rash to the right foot and bilateral hands. Has been ongoing for 3 weeks. Rash itches. On exam the rash is dry and mildly erythematous. There is a reddened border with central clearing. Appears consistent with fungal infection. Patient states that she was previously using nystatin powder which did seem to help the rash. She is instructed to continue using nystatin powder. Educated on findings and derrek atment plan. Discharged. Follow-up with PCP. Report back to ER with any new or worsening symptoms. Discussed return parameters and answered all questions. Patient conveyed verbal understanding and agreed to the plan. I discussed this case in detail with my attending Dr. Richey Undiagnosed new problem with uncertain prognosis? @ -No Drug Therapy requiring intensive monitoring for toxicity (Heparin, Nitro, Insulin, Cardizem)? @ -No Were any procedures done? @ -No Diagnosis/symptom? @ -Fungal infection of the skin Acute, or Chronic, or Acute on Chronic? @ -Acute Uncomplicated (without systemic symptoms) or Complicated (systemic symptoms)? @ -Uncomplicated Side effects of treatment? @ -No Exacerbation, Progression, or Severe Exacerbation? @ -No Poses a threat to life or bodily function? How? (Chest pain, [place], [place], pneumonia, PE, COPD, DKA, ARF, appy, cholecystitis, CVA, Diverticulitis, Homicidal, Suicidal, threat to staff... and all critical care pts) @ -Unlikely Disposition Clinical Impression: Fungal infection of skin Disposition: HOME SELF-CARE Condition: Good Instructions (If sedation given, give patient instructions): Skin Yeast Infection (ED) Additional Instructions: Follow up with your PCP and dermatology. Continue using antifungal cream and nystatin powder. Report back to ER with any new or worsening symptoms. Is patient prescribed a controlled substance at d/c from ED?: No Referrals: Tani Emmanuel MD [Primary Care Provider] - 1-2 days Glenn Wharton MD [STAFF PHYSICIAN] - 1-2 days Time of Disposition: 20:20
[2024-05-10 20:43] VITALS: BP 112/74; PULSE 76
== END 2024-05-10 20:43 | disposition home or self-care (01) ==
LOC: EC 19:53
DX: B36.9 Superficial mycosis, unspecified (principal); F17.200 Nicotine dependence, unspecified, uncomplicated; Z91.09 Other allergy status, other than to drugs and biological substances
CPT/HCPCS: 99282

== ENCOUNTER 2024-09-24 18:23 | Emergency (ER) | payer MEDICARE, OTHER ==
--- NOTE | 2024-09-24 18:54 | ED ---
URI HPI - General Chief Complaint: Upper Respiratory Infection Stated Complaint: TRUDI, congestion Time Seen by Provider: 09/24/24 18:49 Source: patient, family, RN notes reviewed Mode of arrival: ambulatory Limitations: no limitations - History of Present Illness Initial Comments: 69-year-old female with history of COPD, throat cancer, and pacemaker presenting for cough x 4 days with associated body aches and rhinorrhea. Reports cough is productive with green/yellow sputum. Denies chest pain or shortness of breath. States she is having a hard time coughing up sputum. She underwent chemo and radiation for throat cancer and has an upcoming PET scan on of this week to see if the cancer is gone. - Related Data Home Medications Medication Instructions Recorded Confirmed Albuterol Inhaler [Ventolin Hfa 1 - 2 puff INHALATION RT-Q6H PRN 02/10/18 06/20/24 Inhaler] ALPRAZolam [Xanax] 1 mg PO TID 09/29/23 06/20/24 Levothyroxine Sodium [Synthroid] 100 mcg PO DAILY@0630 09/29/23 06/20/24 carvediloL [Coreg] 6.25 mg PO BID-W/MEALS 09/29/23 06/20/24 PARoxetine [Paxil] 20 mg PO DAILY 09/30/23 06/20/24 Fluticasone/Umeclidin/Vilanter 1 puff INHALATION QAM 03/23/24 06/20/24 [Trelegy Ellipta 100-62.5-25] Aprepitant [Emend] 40 mg PO DIRECTED 05/16/24 06/20/24 Famotidine 20 mg PO DAILY 05/16/24 06/20/24 HYDROcodone/APAP 5-325MG [[place] 1 tab PO Q6HR PRN 05/16/24 06/20/24 5-325] Lidocacaine/Dephenhydramine 05/16/24 OLANZapine [ZyPREXA] 2.5 mg PO HS 05/16/24 06/20/24 Ondansetron [Zofran] 4 mg PO Q4-6H PRN 05/16/24 06/20/24 amLODIPine [Norvasc] 2.5 mg PO DAILY 05/16/24 06/20/24 Erythromycin [Andrea-Tab] 250 mg PO BID 06/27/24 06/27/24 Steroid Dose Pack 06/27/24 Previous Rx's Medication Instructions Recorded Triamcinolone 0.1% Cream [Kenalog 1 applicatio TOPICAL BID #30 gram 08/24/24 0.1% Cream] predniSONE 50 mg PO DAILY #5 tab 08/24/24 Allergies Allergy/AdvReac Type Severity Reaction Status Date / Time elastic Allergy Rash/Hives Uncoded 08/24/24 20:18 Review of Systems ROS Statement: Those systems with pertinent positive or pertinent negative responses have been documented in the HPI. ROS Other: All systems not noted in ROS Statement are negative. Past Medical History Past Medical History: Cancer, COPD, GERD/Reflux, Hypertension, Rheumatoid Arthritis (RA), Sleep Apnea/CPAP/BIPAP, Thyroid Disorder, Vascular Disorder Additional Past Medical History / Comment(s): USES CPAP MACHINE and O2 at 2L at night as well. STATES HX OF STOMACH ULCERS. Current "rash on right foot from flip flops". PAD. History of Any Multi-Drug Resistant Organisms: None Reported Past Surgical History: AICD, Heart Catheterization, Pacemaker Additional Past Surgical History / Comment(s): Defibrillator, bilateral cateract surgery, battery change on AICD/Pacemaker 10/2023. Past Anesthesia/Blood Transfusion Reactions: No Reported Reaction, Motion Sickness Type of Cardiac Device: AICD Device Placement Date:: 2012 Past Psychological History: Anxiety, Depression Smoking Status: Current every day smoker - Past Family History Brother(s) Family Medical History: Deep Vein Thrombosis (DVT) General Exam Limitations: no limitations General appearance: alert, in no apparent distress Head exam: Present: atraumatic, normocephalic, normal inspection Eye exam: Present: normal appearance, PERRL, EOMI. Absent: scleral icterus, conjunctival injection, periorbital swelling ENT exam: Present: normal exam, normal oropharynx, mucous membranes moist Neck exam: Present: normal inspection. Absent: tenderness, meningismus, lymphadenopathy Respiratory exam: Present: normal lung sounds bilaterally. Absent: respiratory distress, wheezes, rales, rhonchi, stridor Cardiovascular Exam: Present: regular rate, normal rhythm, normal heart sounds. Absent: systolic murmur, diastolic murmur, rubs, gallop, clicks Neurological exam: Present: alert, oriented X3 Psychiatric exam: Present: normal affect, normal mood Skin exam: Present: warm, dry, intact, normal color. Absent: rash Course Vital Signs 09/24/24 18:24 Temperature 97.4 F L Pulse Rate 70 Respiratory 20 Rate Blood Pressure 145/90 O2 Sat by Pulse 99 Oximetry Medical Decision Making - Medical Decision Making Was pt. sent in by a medical professional or institution (RIDDHI Do, SENIOR ACCOUNTING CLERK, urgent care, hospital, or penitentiary...) When possible be specific @ -No Did you speak to anyone other than the patient for history (EMS, parent, family, police, friend...)? What history was obtained from this source @ -No Did you review nursing and triage notes (agree or disagree)? Why? @ -I reviewed and agree with nursing and triage notes Were old charts reviewed (outside hosp., previous admission, EMS record, old EKG, old radiological studies, urgent care reports/EKG's, penitentiary records)? Report findings @ -No old charts were reviewed Differential Diagnosis (chest pain, altered mental status, abdominal pain women, abdominal pain men, vaginal bleeding, weakness, fever, dyspnea, syncope, headache, dizziness, GI bleed, back pain, seizure, CVA, palpatations, mental health, musculoskeletal)? @ -Viral URI, COVID-19, influenza, RSV, pneumonia, strep pharyngitis EKG interpreted by me (3pts min.). @ -None X-rays interpreted by me (1pt min.). @ -Chest x-ray reveals no acute process CT interpreted by me (1pt min.). @ -None done U/S interpreted by me (1pt. min.). @ -None done What testing was considered but not performed or refused? (CT, X-rays, U/S, lab s)? Why? @ -None What meds were considered but not given or refused? Why? @ -None Did you discuss the management of the patient with other professionals (professionals i.e. RIDDHI Do, SENIOR ACCOUNTING CLERK, lab, RT, psych nurse, social service coordinator, brine well operator, teacher, air defense artillery officer, shelter case manager)? Give summary @ -No Was smoking cessation discussed for >3mins.? @ -No Was critical care preformed (if so, how long)? @ -No Were there social determinants of health that impacted care today? How? (Homelessness, low income, unemployed, alcoholism, drug addiction, transportation, low edu. Level, literacy, decrease access to med. care, senior living, rehab)? @ -No Was there de-escalation of care discussed even if they declined (Discuss DNR or withdrawal of care, Hospice)? DNR status @ -No What co-morbidities impacted this encounter? (DM, HTN, Smoking, COPD, CAD, Cancer, CVA, ARF, Chemo, Hep., AIDS, mental health diagnosis, sleep apnea, morbid obesity)? @ -None Was patient admitted / discharged? Hospital course, mention meds given and route, prescriptions, significant lab abnormalities, going to OR and other pertinent info. @ -Discharge. This is a 69-year-old female with history of throat cancer and COPD presenting for cough x 4 days with rhinorrhea and and bodyaches. Patient is well-appearing, no acute distress. No difficulty breathing or swallowing. Patient was provided with dose of ibuprofen for supportive care. Chest x-ray reveals no acute process. Patient is negative for COVID-19, advised, RSV, strep pharyngitis. Results discussed with patient. Discussed diagnosis of viral URI with patient. Appropriate return precautions and follow-up care discussed. Case was discussed with my ED attending Dr. Richey. Undiagnosed new problem with uncertain prognosis? @ -No Drug Therapy requiring intensive monitoring for toxicity (Heparin, Nitro, Insulin, Cardizem)? @ -No Were any procedures done? @ -No Diagnosis/symptom? @ -Viral URI Acute, or Chronic, or Acute on Chronic? @ -Acute Uncomplicated (without systemic symptoms) or Complicated (systemic symptoms)? @ -Uncomplicated Side effects of treatment? @ -No Exacerbation, Progression, or Severe Exacerbation? @ -No Poses a threat to life or bodily function? How? (Chest pain, USA, [place], pneumonia, PE, COPD, DKA, ARF, appy, cholecystitis, CVA, Diverticulitis, Homicidal, Suicidal, threat to staff... and all critical care pts) @ -No - Lab Data Lab Results 09/24/24 09/24/24 Range/Units 18:58 18:58 Influenza Type A (PCR) Not Detected (Not Detectd) Influenza Type B (PCR) Not Detected (Not Detectd) RSV (PCR) Not Detected (Not Detectd) SARS-CoV-2 (PCR) Not Detected (Not Detectd) Group A Strep (PCR) NOT DETECTED (Not Detectd) Disposition Clinical Impression: Viral upper respiratory infection Disposition: HOME SELF-CARE Condition: Stable Instructions (If sedation given, give patient instructions): Upper Respiratory Infection (ED) Additional Instructions: Please return to the Emergency Department if symptoms worsen or any other c oncerns. Is patient prescribed a controlled substance at d/c from ED?: No Referrals: Tani Emmanuel MD [Primary Care Provider] - 1-2 days Time of Disposition: 20:27
[2024-09-24] MEDS: IBUPROFEN 600 MG TAB PO STA (18:56)
--- NOTE | 2024-09-24 19:38 | XR ---
EXAMINATION TYPE: XR chest 2V DATE OF EXAM: 09/24/2024 7:26 PM COMPARISON: Chest radiographs from 06/21/2023 CLINICAL INDICATION: Female, 69 years old with history of cough; TECHNIQUE: XR chest 2V Frontal and lateral views of the chest. FINDINGS: Lungs/Pleura: There is flattening of the diaphragm with increased lucency of the lungs. No evidence o f pneumothorax, pleural effusion or focal consolidation. Pulmonary vascularity: Unremarkable. Heart/mediastinum: Cardiomediastinal silhouette is unremarkable. Musculoskeletal: No acute osseous pathology. IMPRESSION: 1. No acute cardiopulmonary disease process. 2. COPD changes. [facility], , 09/24/2024 7:35 PM
[2024-09-24 19:44] LABS: Influenza A Not Detected (Not Detectd); Influenza B Not Detected (Not Detectd); RSV Not Detected (Not Detectd)
[2024-09-24 20:31] VITALS: BP 145/79; PULSE 69; RESP 19; TEMP 97.6
== END 2024-09-24 21:16 | disposition home or self-care (01) ==
LOC: EC 18:23
DX: C14.0 Malignant neoplasm of pharynx, unspecified (principal); J06.9 Acute upper respiratory infection, unspecified; F17.200 Nicotine dependence, unspecified, uncomplicated; Z91.048 Other nonmedicinal substance allergy status
CPT/HCPCS: 71046; 87636; 87651; 99285

== ENCOUNTER → 2024-09-28 | Outpatient (CLI) | payer MEDICARE, OTHER | END | disposition home or self-care (01) | LOC: RADPETMAIN 13:09 | PROVIDERS: ATTEND Radiology Radiation Oncology | DX: Z53.9 Procedure and treatment not carried out, unspecified reason (principal) ==

== ENCOUNTER 2024-10-08 16:50 | Inpatient (IN) | payer MEDICARE, OTHER ==
--- NOTE | 2024-10-08 17:32 | ED ---
General Adult HPI - General Chief complaint: Shortness of Breath Stated complaint: TRUDI, difficulty swallowing Time Seen by Provider: 10/08/24 17:31 Source: patient Mode of arrival: ambulatory Limitations: no limitations - History of Present Illness Initial comments: Patient presents to the ED with her brother for evaluation. 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 Patient also reports having difficulty swallowing at times, but she states that she has been able to take down solids and liquids by mouth. Patient states that she has had several radiation treatments, as well as chemotherapy treatments. Patient denies having any pain, fever or chills, headache, focal numbness or weakness, visual changes, speech difficulty, voice changes, throat pain, chest pain, cough or cold symptoms, palpitations, dizziness, abdominal pain, nausea or vomiting, decreased urine output, leg or calf swelling, or any other symptoms or complaints. - Related Data Home Medications Medication Instructions Recorded Confirmed Albuterol Inhaler [Ventolin Hfa 1 - 2 puff INHALATION RT-Q6H PRN 02/10/18 06/20/24 Inhaler] ALPRAZolam [Xanax] 1 mg PO TID 09/29/23 06/20/24 Levothyroxine Sodium [Synthroid] 100 mcg PO DAILY@0630 09/29/23 06/20/24 carvediloL [Coreg] 6.25 mg PO BID-W/MEALS 09/29/23 06/20/24 PARoxetine [Paxil] 20 mg PO DAILY 09/30/23 06/20/24 Fluticasone/Umeclidin/Vilanter 1 puff INHALATION QAM 03/23/24 06/20/24 [Trelegy Ellipta 100-62.5-25] Aprepitant [Emend] 40 mg PO DIRECTED 05/16/24 06/20/24 Famotidine 20 mg PO DAILY 05/16/24 06/20/24 HYDROcodone/APAP 5-325MG [[place] 1 tab PO Q6HR PRN 05/16/24 06/20/24 5-325] Lidocacaine/Dephenhydramine 05/16/24 OLANZapine [ZyPREXA] 2.5 mg PO HS 05/16/24 06/20/24 Ondansetron [Zofran] 4 mg PO Q4-6H PRN 05/16/24 06/20/24 amLODIPine [Norvasc] 2.5 mg PO DAILY 05/16/24 06/20/24 Erythromycin [Andrea-Tab] 250 mg PO BID 06/27/24 06/27/24 Steroid Dose Pack 06/27/24 Previous Rx's Medication Instructions Recorded Triamcinolone 0.1% Cream [Kenalog 1 applicatio TOPICAL BID #30 gram 08/24/24 0.1% Cream] predniSONE 50 mg PO DAILY #5 tab 08/24/24 Allergies Allergy/AdvReac Type Severity Reaction Status Date / Time elastic Allergy Rash/Hives Uncoded 10/08/24 17:08 Review of Systems ROS Statement: Those systems with pertinent positive or pertinent negative responses have been documented in the HPI. ROS Other: All systems not noted in ROS Statement are negative. Past Medical History Past Medical History: Cancer, COPD, GERD/Reflux, Hypertension, Rheumatoid Arthritis (RA), Sleep Apnea/CPAP/BIPAP, Thyroid Disorder, Vascular Disorder Additional Past Medical History / Comment(s): USES CPAP MACHINE and O2 at 2L at night as well. STATES HX OF STOMACH ULCERS. Current "rash on right foot from flip flops". PAD. History of Any Multi-Drug Resistant Organisms: None Reported Past Surgical History: AICD, Heart Catheterization, Pacemaker Additional Past Surgical History / Comment(s): Defibrillator, bilateral cateract surgery, battery change on AICD/Pacemaker 10/2023. Past Anesthesia/Blood Transfusion Reactions: No Reported Reaction, Motion Sickness Type of Cardiac Device: AICD Device Placement Date:: 2012 Past Psychological History: Anxiety, Depression Smoking Status: Current every day smoker - Past Family History Brother(s) Family Medical History: Deep Vein Thrombosis (DVT) General Exam Limitations: no limitations General appearance: alert, in no apparent distress Eye exam: Present: normal appearance ENT exam: Present: normal oropharynx, mucous membranes moist Neck exam: Present: other (Trachea is in midline; no stridor is noted on tracheal auscultation). Absent: tenderness Respiratory exam: Present: normal lung sounds bilaterally. Absent: respiratory distress, wheezes, rales, rhonchi, stridor, chest wall tenderness Cardiovascular Exam: Present: regular rate, normal rhythm, normal heart sounds, other (Normal radial pulses bilaterally) GI/Abdominal exam: Present: soft. Absent: distended, tenderness, guarding Extremities exam: Present: other (Negative Homans' sign bilaterally). Absent: tenderness, pedal edema, calf tenderness Neurological exam: Present: alert, oriented X3, CN II-XII intact. Absent: motor sensory deficit Psychiatric exam: Present: normal affect Skin exam: Present: warm, dry, normal color Course Vital Signs 10/08/24 10/08/24 10/08/24 17:06 17:59 18:33 Temperature 98.3 F 97.8 F Pulse Rate 52 L 60 Respiratory 17 24 18 Rate Blood Pressure 119/81 133/86 O2 Sat by Pulse 95 100 Oximetry 10/08/24 10/08/24 19:31 19:53 Temperature 97.9 F Pulse Rate 52 L 56 L Respiratory 16 Rate Blood Pressure 135/60 O2 Sat by Pulse 99 Oximetry - Reevaluation(s) Reevaluation #1: 10/08/24 20:24 Case, H&P, test results/imaging reports and ED management thus far were discussed with Dr. Chance (on-call oncologist). He agrees with plan to admit the patient on an observational status given her CT findings. He recommends placing oncology and radiation oncology consultation orders. He has no further recommendations at this time. 10/08/24 20:29 Case, H&P, test results/imaging reports, ED management thus far and my discussion with Dr. Chance as above were discussed with Dr. Emmanuel. He accepts hospital admission. He has no further recommendations at this time. 10/08/24 20:37 Patient remains alert and breathing comfortably with a normal room air oxygen saturation. Patient is not currently stridorous, and she has no respiratory distress at this time. Patient and brother are aware the patient's test results and my discussions as above. Patient agrees with hospital admission at this time. EKG Findings - EKG Comments: EKG Findings:: ED physician interpretation (interpreted by me): Ventricular paced rhythm, ventricular rate of 59 bpm, frequent PVC's Medical Decision Making - Medical Decision Making Was pt. sent in by a medical professional or institution (, PA, PROMOTIONS TEAM LEADER, urgent care, hospital, or detention...) When possible be specific @ -No Did you speak to anyone other than the patient for history (EMS, parent, family, police, friend...)? What history was obtained from this source @ -No Did you review nursing and triage notes (agree or disagree)? Why? @ -I reviewed and agree with nursing and triage notes Were old charts reviewed (outside hosp., previous admission, EMS record, old EKG, old radiological studies, urgent care reports/EKG's, detention records)? Report findings @ -No old charts were reviewed Differential Diagnosis (chest pain, altered mental status, abdominal pain women, abdominal pain men, vaginal bleeding, weakness, fever, dyspnea, syncope, headache, dizziness, GI bleed, back pain, seizure, CVA, palpatations, mental health, musculoskeletal)? @ -Differential Dyspnea: Coronary syndrome, arrhythmia, tamponade, asthma, COPD, pulmonary embolism, pneumonia, pneumothorax, pleural effusion, malignancy, airway edema, airway narrowing, anemia, neuromuscular, this is not meant to be an all-inclusive list. EKG interpreted by me (3pts min.). @ -As above X-rays interpreted by me (1pt min.). @ -Chest x-ray was reviewed myself and shows no acute cardiopulmonary abnormality. I agree with the radiologist's interpretation as above. CT interpreted by me (1pt min.). @ -CT chest is negative for pulmonary embolism. CT soft tissue neck demonstrates narrowing of the airway. U/S interpreted by me (1pt. min.). @ -None done What testing was considered but not performed or refused? (CT, X-rays, U/S, labs)? Why? @ -None What meds were considered but not given or refused? Why? @ -None Did you discuss the management of the patient with other professionals (professionals i.e. , PA, PROMOTIONS TEAM LEADER, lab, RT, psych nurse, social security benefits interviewer, motor runner, teacher, correctional security officer, supportive employment case manager)? Give summary @ -As above. Was smoking cessation discussed for >3mins.? @ -No Was critical care preformed (if so, how long)? @ -No Were there social determinants of health that impacted care today? How? (Homelessness, low income, unemployed, alcoholism, drug addiction, transportation, low edu. Level, literacy, decrease access to med. care, [facility], rehab)? @ -No Was there de-escalation of care discussed even if they declined (Discuss DNR or withdrawal of care, Hospice)? DNR status @ -No What co-morbidities impacted this encounter? (DM, HTN, Smoking, COPD, CAD, Cancer, CVA, ARF, Chemo, Hep., AIDS, mental health diagnosis, sleep apnea, morbid obesity)? @ -Laryngeal cancer Was patient admitted / discharged? Hospital course, mention meds given and route, prescriptions, significant lab abnormalities, going to OR and other [facility] [place] info. @ -Patient is breathing comfortably in the ED without any respiratory distress or stridor. Patient has a normal room air oxygen saturation. Patient's EKG and labs are fairly unremarkable. Patient's imaging studies demonstrate progression of her airway narrowing due to laryngeal mass. Case was discussed with the on- call oncologist. Will admit patient to the hospital for observation, as well as oncology and radiation oncology consultations. Dr. Emmanuel has accepted hospital admission. Patient agrees with this plan. Patient was given a dose of IV Decadron in the ED. Undiagnosed new problem with uncertain prognosis? @ -No Drug Therapy requiring intensive monitoring for toxicity (Heparin, Nitro, Insulin, Cardizem)? @ -No Were any procedures done? @ -No Diagnosis/symptom? @ -Dyspnea, airway narrowing Acute, or Chronic, or Acute on Chronic? @ -Acute on chronic Uncomplicated (without systemic symptoms) or Complicated (systemic symptoms)? @ -Default Side effects of treatment? @ -No Exacerbation, Progression, or Severe Exacerbation? @ -No Poses a threat to life or bodily function? How? (Chest pain, [place], [place], pneumonia, PE, COPD, DKA, ARF, appy, cholecystitis, CVA, Diverticulitis, Homicidal, Suicidal, threat to staff... and all critical care pts) @ -Possibly. - Lab Data Result diagrams: 10/08/24 18:00 10/08/24 18:29 Lab Results 10/08/24 10/08/24 10/08/24 Range/Units 18:00 18:00 18:00 WBC 5.8 (3.8-10.6) k/uL RBC 4.51 (3.80-5.40) m/uL Hgb 14.4 (11.4-16.0) gm/dL Hct 43.7 (34.0-46.0) % MCV 96.9 (80.0-100.0) fL MCH 31.8 (25.0-35.0) pg MCHC 32.8 (31.0-37.0) g/dL RDW 13.4 (11.5-15.5) % Plt Count 229 (150-450) k/uL MPV 7.7 Neutrophils % 71 % Lymphocytes % 15 % Monocytes % 8 % Eosinophils % 3 % Basophils % 0 % Neutrophils # 4.1 (1.3-7.7) k/uL Lymphocytes # 0.9 L (1.0-4.8) k/uL Monocytes # 0.5 (0-1.0) k/uL Eosinophils # 0.2 (0-0.7) k/uL Basophils # 0.0 (0-0.2) k/uL PT 11.1 (10.0-12.5) sec INR 1.0 (<1.2) APTT 23.8 (22.0-30.0) sec D-Dimer 0.93 H (<0.60) mg/L FEU Sodium (137-145) mmol/L Potassium (3.5-5.1) mmol/L Chloride (98-107) mmol/L Carbon Dioxide (22-30) mmol/L Anion Gap mmol/L BUN (7-17) mg/dL Creatinine (0.52-1.04) mg/dL Est GFR (CKD-EPI)AfAm (>60 ml/min/1.73 sqM) Est GFR (CKD-EPI)NonAf (>60 ml/min/1.73 sqM) Glucose (74-99) mg/dL Calcium (8.4-10.2) mg/dL Total Bilirubin (0.2-1.3) mg/dL AST (14-36) U/L ALT (4-34) U/L Alkaline Phosphatase (38-126) U/L Troponin I (0.000-0.034) ng/mL NT-Pro-B Natriuret Pep pg/mL Total Protein (6.3-8.2) g/dL Albumin (3.5-5.0) g/dL Influenza Type A (PCR) Not Detected (Not Detectd) Influenza Type B (PCR) Not Detected (Not Detectd) RSV (PCR) Not Detected (Not Detectd) SARS-CoV-2 (PCR) Not Detected (Not Detectd) 10/08/24 10/08/24 Range/Units 18:29 18:29 WBC (3.8-10.6) k/uL RBC (3.80-5.40) m/uL Hgb (11.4-16.0) gm/dL Hct (34.0-46.0) % MCV (80.0-100.0) fL MCH (25.0-35.0) pg MCHC (31.0-37.0) g/dL RDW (11.5-15.5) % Plt Count (150-450) k/uL MPV Neutrophils % % Lymphocytes % % Monocytes % % Eosinophils % % Basophils % % Neutrophils # (1.3-7.7) k/uL Lymphocytes # (1.0-4.8) k/uL Monocytes # (0-1.0) k/uL Eosinophils # (0-0.7) k/uL Basophils # (0-0.2) k/uL PT (10.0-12.5) sec INR (<1.2) APTT (22.0-30.0) sec D-Dimer (<0.60) mg/L FEU Sodium 136 L (137-145) mmol/L Potassium 4.1 (3.5-5.1) mmol/L Chloride 98 (98-107) mmol/L Carbon Dioxide 32 H (22-30) mmol/L Anion Gap 6 mmol/L BUN 15 (7-17) mg/dL Creatinine 0.77 (0.52-1.04) mg/dL Est GFR (CKD-EPI)AfAm >90 (>60 ml/min/1.73 sqM) Est GFR (CKD-EPI)NonAf 80 (>60 ml/min/1.73 sqM) Glucose 95 (74-99) mg/dL Calcium 9.7 (8.4-10.2) mg/dL Total Bilirubin 0.6 (0.2-1.3) mg/dL AST 19 (14-36) U/L ALT 12 (4-34) U/L Alkaline Phosphatase 86 (38-126) U/L Troponin I <0.012 (0.000-0.034) ng/mL NT-Pro-B Natriuret Pep 234 pg/mL Total Protein 7.4 (6.3-8.2) g/dL Albumin 4.3 (3.5-5.0) g/dL Influenza Type A (PCR) (Not Detectd) Influenza Type B (PCR) (Not Detectd) RSV (PCR) (Not Detectd) SARS-CoV-2 (PCR) (Not Detectd) - Radiology Data Chest x-ray: No evidence for acute pulmonary disease. CT soft tissue neck with IV contrast: Again noted is a difficult to measure soft tissue mass in the region of the left hypopharynx extending to the vocal cords with narrowing of the airway to 3 mm which appears to have progressed since prior study. Tumor appears to cross midline as was noted previously. There is nodularity of the vocal cord. CT angiography chest with IV contrast: No evidence for pulmonary embolism at this time. Disposition Clinical Impression: Dyspnea, Laryngeal cancer, Narrowing of airway Disposition: ADMITTED IP TO THIS HOSP Condition: Stable Is patient prescribed a controlled substance at d/c from ED?: No Referrals: Tani Emmanuel MD [Primary Care Provider] - 1-2 days Time of Disposition: 20:39
[2024-10-08] MEDS: SODIUM CHLORIDE 0.9% 1,000 ML IV SCH ×2 (18:02→21:41)
[2024-10-08 18:08] LABS: Basophils % (A) 0 %; Eosinophils # (A) 0.2 k/uL (0-0.7); Eosinophils % (A) 3 %; HCT 43.7 % (34.0-46.0); HGB 14.4 gm/dL (11.4-16.0); Lymphocytes # (A) 0.9 k/uL (1.0-4.8); Lymphocytes % (A) 15 %; MCH 31.8 pg (25.0-35.0); MCHC 32.8 g/dL (31.0-37.0); MCV 96.9 fL (80.0-100.0); Mean Platelet Volume 7.7; Monocytes # (A) 0.5 k/uL (0-1.0); Monocytes % (A) 8 %; Neutrophils # (A) 4.1 k/uL (1.3-7.7); Neutrophils % (A) 71 %; Platelet Count 229 k/uL (150-450); RBC 4.51 m/uL (3.80-5.40); RDW 13.4 % (11.5-15.5); WBC 5.8 k/uL (3.8-10.6)
[2024-10-08 18:21] LABS: Partial Thromboplastin Time 23.8 sec (22.0-30.0); Prothrombin Time 11.1 sec (10.0-12.5)
--- NOTE | 2024-10-08 18:35 | XR ---
EXAMINATION TYPE: XR chest 2V DATE OF EXAM: 10/08/2024 6:13 PM COMPARISON: 09/24/24 CLINICAL INDICATION: Female, 69 years old with history of difficulty breathing: Shortness of breath TECHNIQUE: XR chest 2V views of the chest are obtained. FINDINGS: Scattered senescent parenchymal changes noted. Hyperinflation compatible with COPD. No evidence for infiltrate. No evidence for atelectasis. Heart size is stable. Mediastinal structures are stable and grossly unremarkable. No evidence for hilar prominence. Degenerative changes dorsal spine. IMPRESSION: 1. No evidence for acute pulmonary disease. [facility], , 10/08/2024 6:32 PM
[2024-10-08 18:42] LABS: Influenza A Not Detected (Not Detectd); Influenza B Not Detected (Not Detectd); RSV Not Detected (Not Detectd)
[2024-10-08 18:48] LABS: ALT 12 U/L (4-34); AST 19 U/L (14-36); African American GFR (CKD) >90 (>60 ml/min/1.73 sqM); Albumin 4.3 g/dL (3.5-5.0); Alkaline Phosphatase 86 U/L (38-126); Anion Gap 6 mmol/L; Blood Urea Nitrogen 15 mg/dL (7-17); Calcium 9.7 mg/dL (8.4-10.2); Carbon Dioxide 32 mmol/L (22-30); Chloride 98 mmol/L (98-107); Glucose 95 mg/dL (74-99); Non-African American GFR(CKD) 80 (>60 ml/min/1.73 sqM); Potassium 4.1 mmol/L (3.5-5.1); Sodium 136 mmol/L (137-145); Total Bilirubin 0.6 mg/dL (0.2-1.3); Total Protein 7.4 g/dL (6.3-8.2)
[2024-10-08 18:57] LABS: NT-Pro-B-Type Natriuretic Pept 234 pg/mL
[2024-10-08] MEDS: IPRATROPIUM-ALBUTEROL 3 ML NEB INHALATION STA (19:31)
--- NOTE | 2024-10-08 19:34 | CT ---
EXAMINATION TYPE: CT soft tissue neck w con DATE OF EXAM: 10/08/2024 7:21 PM COMPARISON: PET/CT dated 05/04/2024 CLINICAL INDICATION: Female, 69 years old with history of TRUDI, dysphagia, h/o throat cancer, TRUDI, dys phagia, h/o throat cancer, TECHNIQUE: Axial CT was performed with sagittal and coronal reformats. IV CONTRAST: with IV Contrast, patient injected with 100 ml mL of Isovue 370. (None if empty) CT DLP: 175.6 mGycm, Automated exposure control for dose reduction was used. FINDINGS: AIRWAY: Again noted is a difficult to measure soft tissue mass in the region of the left hypopharynx extending to the vocal cords with narrowing of the airway to 3 mm which appears to have progressed si nce prior study. Tumor appears to cross midline as was noted previously. There is nodularity of the v ocal cord. SALIVARY GLANDS: The submandibular and parotid glands are free of mass or inflammatory process. THYROID GLAND: No nodules or masses seen. LYMPH NODES: No adenopathy seen greater than 1cm. LUNG APICES: No nodule or mass is seen. OTHER: Vascular structures are patent. No significant degenerative change of the cervical spine. N o abscess seen. IMPRESSION: Again noted is a difficult to measure soft tissue mass in the region of the left hypopharynx extendin g to the vocal cords with narrowing of the airway to 3 mm which appears to have progressed since prio r study. Tumor appears to cross midline as was noted previously. There is nodularity of the vocal cor d. [facility], , 10/08/2024 7:32 PM
--- NOTE | 2024-10-08 19:39 | CT ---
EXAMINATION TYPE: CT chest angio for PE DATE OF EXAM: 10/08/2024 7:24 PM COMPARISON: None. CLINICAL INDICATION: Female, 69 years old with history of dyspnea, cancer, elevated d-dimer, TRUDI. Bridget vated D-dimer., TECHNIQUE: Axial CT was performed with sagittal and coronal reformats. 3D reconstruction and/or MIP imaging was also performed on a separate workstation. IV CONTRAST: with IV Contrast, patient injected with 100 ml mL of Isovue 370. (None if empty) CT DLP: 355.1 mGycm, Automated exposure control for dose reduction was used. FINDINGS: PULMONARY ARTERIES: The pulmonary arteries and their major tributaries are patent. I do not see job dence for sizable filling defect to suggest pulmonary embolic process. LUNGS: The lungs are clear and free of infiltrate. No evidence for atelectasis. No pulmonary nodule or mass is detected. No pleural effusion. MEDIASTINUM: Thoracic aorta is of normal caliber,however, evaluation is limited given timing of the contrast bolus. If there is concern for thoracic aortic pathology consider PENNY. Correlate clinicall y. No evidence for mediastinal mass. No mediastinal lymph nodes greater than 1cm. HEART: Size within normal limits. No significant coronary artery calcifications. HILAR STRUCTURES: No evidence for mass. No hilar lymph nodes greater than 1 cm. UPPER ABDOMEN: Mild thickening left adrenal gland. Probable right renal cyst. IMPRESSION: 1. No evidence for Pulmonary embolism at this time. [facility], , 10/08/2024 7:37 PM
[2024-10-08] MEDS: SODIUM CHLORIDE 0.9% 1,000 ML IV ONE (20:02)
[2024-10-08] MEDS: DEXAMETHASONE SOD PHOSPHATE 10 MG/ML 1 ML VIAL IVP STA (20:19)
[2024-10-08] MEDS ORDERED: NALOXONE 0.4 MG/ML 1 ML VIAL IV PRN (20:29)
[2024-10-08 21:59] LABS: Basophils % (A) 0 %; Eosinophils # (A) 0.2 k/uL (0-0.7); Eosinophils % (A) 3 %; HCT 45.3 % (34.0-46.0); HGB 14.5 gm/dL (11.4-16.0); Lymphocytes # (A) 0.9 k/uL (1.0-4.8); Lymphocytes % (A) 15 %; MCH 31.9 pg (25.0-35.0); MCV 99.5 fL (80.0-100.0); Mean Platelet Volume 8.3; Monocytes # (A) 0.4 k/uL (0-1.0); Monocytes % (A) 7 %; Neutrophils # (A) 4.2 k/uL (1.3-7.7); Neutrophils % (A) 72 %; Platelet Count 220 k/uL (150-450); RBC 4.55 m/uL (3.80-5.40); RDW 13.8 % (11.5-15.5); WBC 5.8 k/uL (3.8-10.6)
[2024-10-08 22:13] LABS: ALT 12 U/L (4-34); African American GFR (CKD) >90 (>60 ml/min/1.73 sqM); Anion Gap 6 mmol/L; Blood Urea Nitrogen 14 mg/dL (7-17); Calcium 9.2 mg/dL (8.4-10.2); Carbon Dioxide 28 mmol/L (22-30); Chloride 101 mmol/L (98-107); Glucose 83 mg/dL (74-99); Non-African American GFR(CKD) >90 (>60 ml/min/1.73 sqM); Sodium 135 mmol/L (137-145); Total Bilirubin 0.8 mg/dL (0.2-1.3)
[2024-10-08 22:18] LABS: Albumin 4.1 g/dL (3.5-5.0); Potassium 5.1 mmol/L (3.5-5.1); Total Protein 7.2 g/dL (6.3-8.2)
[2024-10-08 22:19] LABS: AST 28 U/L (14-36); Alkaline Phosphatase 67 U/L (38-126)
[2024-10-09] MEDS ORDERED: HYDROcodone/APAP 5-325MG 1 EACH TAB PO PRN (10:56)
[2024-10-09] MEDS ORDERED: hydrOXYzine HCL 25 MG TAB PO PRN (10:56)
[2024-10-09] MEDS ORDERED: ALBUTEROL NEBULIZED 2.5 MG/3 ML INHALATION PRN (10:56)
[2024-10-09] MEDS: ALPRAZolam 1 MG TAB PO PRN (11:09)
[2024-10-09] MEDS: FAMOTIDINE 20 MG TAB PO SCH (11:09)
[2024-10-09] MEDS: PARoxetine 20 MG TAB PO SCH (11:57)
[2024-10-09] MEDS: amLODIPine 2.5 MG TAB PO SCH (11:57)
--- NOTE | 2024-10-09 15:01 | HP ---
HISTORY AND PHYSICAL CHIEF COMPLAINT: Difficulty breathing and swallowing. HISTORY OF PRESENT ILLNESS: This 69-year-old female is being treated for . She thought that she was having some difficulty breathing as well as swallowing and came to the emergency room. She has been waiting for a followup PET scan. She has had no hemoptysis, fever, chills, pain, etc. In the emergency room, she was not particularly stridorous, but it was felt safest to admit her for further evaluation with the concern of possibly losing her airway. REVIEW OF SYSTEMS: She has had no other symptoms. Past medical history, family history, personal and social histories are otherwise unremarkable and noncontributory. ALLERGIES: She is allergic to latex. MEDICATIONS: Include: 1. Atorvastatin 80. 2. Xanax 1 mg t.i.d. p.r.n. 3. Trelegy 1 puff once a day. 4. Furosemide 20 mg twice a day. 5. Breztri 160 two puffs twice a day. 6. Omeprazole 20 mg once a day. 7. Albuterol HFA. 8. . 9. Vicodin 5. 10.Hydroxyzine 25 mg t.i.d. p.r.n. 11.Pepcid 20 mg once a day. 12.Ensure. 13.Carvedilol 6.25 twice a day. 14.Amlodipine 2.5 once a day. 15.Paxil 20 mg once a day. She used to smoke. PHYSICAL EXAMINATION: VITAL SIGNS: Blood pressure 112/74 with a pulse of 92, respirations of 37, and she is afebrile. GENERAL: She appeared to be slightly short of breath. SKIN: Dry. HEAD, EARS, EYES, NOSE, MOUTH, AND THROAT: Normal. NECK: Veins were not distended. Thyroid is not enlarged. There were no definite neck masses. CHEST: Demonstrates increased AP diameter with decreased breath sounds throughout. CARDIAC: Normal. ABDOMEN: Soft, nontender. EXTREMITIES: Normal. NEUROLOGIC: She is intact. ASSESSMENT: She is admitted to the hospital with diagnoses of: 1. Increase shortness of breath and dysphagia with carcinoma of the . 2. Chronic obstructive pulmonary disease. PLAN: 1. Bedrest. 2. IV fluids. 3. Nasal O2. 4. Consult with Oncology and Radiation Therapy. MMODL / IJN: [id number] /
--- NOTE | 2024-10-09 15:13 | PN ---
PROGRESS NOTE CHIEF COMPLAINT: Carcinoma of the larynx. HISTORY OF PRESENT ILLNESS: This lady is doing fairly well. She is not having any trouble breathing right now. She does have a little bit of difficulty swallowing. PHYSICAL EXAMINATION: CHEST: Clear. CARDIAC: Normal. ABDOMEN: Soft, nontender. IMPRESSION: 1. Carcinoma of the larynx with increased growth. 2. Chronic obstructive pulmonary disease. 3. Consult with Oncology and Radiation therapy. MMODL / IJN: [id number] /
[2024-10-09] MEDS: FUROSEMIDE 20 MG TAB PO SCH (15:25)
--- NOTE | 2024-10-09 16:15 | P.CONS ---
History of Present Illness - Reason for Consult Consult date: 10/09/24 dyspnea Requesting physician: Josef Mckeon - Chief Complaint short of breath - History of Present Illness Ms. 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 She underwent a course of definitive concurrent chemoradiation to 70 Gy with cisplatin, completing treatment on 07/19/2024. She presented to the ER due to dyspnea. The patient states that over the past week she has had difficulty with increasing dyspnea. However, this mostly seems to only manifest at night when she is lying down. She states that at times she feels her breathing is completely choked off. It does not seem to bother her during the day or with increased activity. She has had a bit more difficulty swallowing as well. She has been still coughing up some greenish sputum. However, she states she is not coughing much more than her baseline. She reportedly started steroids last night, and actually feels she slept better. On October 08 the patient underwent a CT of the neck. This did reveal one small area of narrowing of the airway down to 3 mm. However, on my review the majority of the tumor appears to have responded well. This may be on the basis of posttreatment edema. CTA of the chest was unremarkable. Review of Systems Constitutional: Denies anorexia, Denies fever Eyes: denies blurred vision Ears, nose, mouth and throat: Reports dysphagia Cardiovascular: Denies chest pain Respiratory: Reports cough with sputum, Reports dyspnea, Denies hemoptysis, Denies pain Gastrointestinal: Denies abdominal pain Integumentary: Denies rash Neurological: Denies confusion Past Medical History Past Medical History: Cancer, COPD, GERD/Reflux, Hypertension, Rheumatoid Arthritis (RA), Sleep Apnea/CPAP/BIPAP, Thyroid Disorder, Vascular Disorder Additional Past Medical History / Comment(s): USES CPAP MACHINE and O2 at 2L at night as well. STATES HX OF STOMACH ULCERS. Current "rash on right foot from flip flops". PAD. History of Any Multi-Drug Resistant Organisms: None Reported Past Surgical History: AICD, Heart Catheterization, Pacemaker Additional Past Surgical History / Comment(s): Defibrillator, bilateral cateract surgery, battery change on AICD/Pacemaker 10/2023. Past Anesthesia/Blood Transfusion Reactions: No Reported Reaction, Motion Sickness Type of Cardiac Device: AICD Device Placement Date:: 2012 Past Psychological History: Anxiety, Depression Additional Psychological History / Comment(s): Hospitalized February 2023, states almost had a mental breakdown. Smoking Status: Former smoker Past Alcohol Use History: Abuse Past Drug Use History: None Reported - Past Family History Brother(s) Family Medical History: Deep Vein Thrombosis (DVT) Medications and Allergies Home Medications Medication Instructions Recorded Confirmed Type Albuterol Inhaler [Ventolin Hfa 2 puff INHALATION RT-QID PRN 02/10/18 10/09/24 History Inhaler] ALPRAZolam [Xanax] 1 mg PO TID PRN 09/29/23 10/09/24 History PARoxetine [Paxil] 20 mg PO DAILY 09/30/23 10/09/24 History Fluticasone/Umeclidin/Vilanter 1 puff INHALATION RT-DAILY 03/23/24 10/09/24 History [Trelegy Ellipta 100-62.5-25] Famotidine 20 mg PO DAILY 05/16/24 10/09/24 History HYDROcodone/APAP 5-325MG [[place] 1 tab PO TID PRN 05/16/24 10/09/24 History 5-325] amLODIPine [Norvasc] 2.5 mg PO DAILY 05/16/24 10/09/24 History Atorvastatin [Lipitor] 80 mg PO DAILY 10/09/24 10/09/24 History Betamethasone Dipropionate 1 applic TOPICAL BID PRN 10/09/24 10/09/24 History [Diprolene 0.05% Ointment] Budesonide/Glycopyr/Formoterol 2 puff INHALATION RT-BID 10/09/24 10/09/24 Histo ry [Breztri Aerosphere Inhaler] Clotrimazole Cream [Lotrimin Cream] 1 applic TOPICAL BID PRN 10/09/24 10/09/24 History Furosemide [Lasix] 20 mg PO BID 10/09/24 10/09/24 History Hydrocortisone Cream 1 applic TOPICAL QID PRN 10/09/24 10/09/24 History [Hydrocortisone 2.5% Cream] Levothyroxine Sodium [Synthroid] 88 mcg PO DAILY 10/09/24 10/09/24 History Nystatin 100,000 Unit/gm Powd 1 applic TOPICAL QID PRN 10/09/24 10/09/24 History [Mycostatin Powder] Omeprazole [PriLOSEC] 20 mg PO DAILY 10/09/24 10/09/24 History Triamcinolone 0.1% Cream [Kenalog 1 applicatio TOPICAL BID PRN 10/09/24 10/09/24 History 0.1% Cream] carvediloL [Coreg] 6.25 mg PO BID 10/09/24 10/09/24 History hydrOXYzine HCL [Atarax] 25 mg PO TID PRN 10/09/24 10/09/24 History Allergies Allergy/AdvReac Type Severity Reaction Status Date / Time elastic Allergy Rash/Hives Uncoded 10/09/24 09:33 Physical Exam Vitals: Vital Signs Temp Pulse Pulse Resp BP BP Pulse Ox 10/09/24 12:11 98.1 F 61 16 135/77 97 10/09/24 08:00 57 L 15 10/09/24 07:26 98.0 F 57 L 15 109/71 94 L 10/09/24 06:04 98.1 F 61 14 111/69 95 10/09/24 03:22 55 L 16 92/69 95 10/08/24 22:00 53 L 16 152/76 98 10/08/24 19:53 56 L 10/08/24 19:31 97.9 F 52 L 16 135/60 99 10/08/24 18:33 97.8 F 60 18 133/86 100 10/08/24 17:59 24 10/08/24 17:06 98.3 F 52 L 17 119/81 95 Intake and Output 10/09/24 10/09/24 10/09/24 06:59 14:59 22:59 Other: Weight 69.4 kg - Constitutional General appearance: no acute distress - EENT Eyes: EOMI, PERRLA ENT: hearing grossly normal, normal oropharynx - Neck Neck: no lymphadenopathy, no rigidity - Respiratory Respiratory: bilateral: CTA - Cardiovascular Rhythm: regular - Gastrointestinal General gastrointestinal: no distended - Integumentary Integumentary: no cellulitis - Neurologic Neurologic: CNII-XII intact - Psychiatric Psychiatric: A&O x's 3, appropriate affect Results CBC & Chem 7: 10/08/24 21:29 10/08/24 21:29 Labs: Abnormal Lab Results - Last 24 Hours (Table) 10/08/24 10/08/24 10/08/24 Range/Units 18:00 18:00 18:29 Lymphocytes # 0.9 L (1.0-4.8) k/uL D-Dimer 0.93 H (<0.60) mg/L FEU Sodium 136 L (137-145) mmol/L Carbon Dioxide 32 H (22-30) mmol/L 10/08/24 10/08/24 Range/Units 21:29 21:29 Lymphocytes # 0.9 L (1.0-4.8) k/uL D-Dimer (<0.60) mg/L FEU Sodium 135 L (137-145) mmol/L Carbon Dioxide (22-30) mmol/L CT scan - chest: report reviewed, image reviewed Assessment and Plan Assessment: Ms. 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 She underwent a course of definitive concurrent chemorad iation to 70 Gy with cisplatin, completing treatment on 07/19/2024. She presents to the ER due to worsening dyspnea. Plan: 1. Dyspnea: Possibly due to decreased airway caliber at the level of the larynx. However, the patient is not having stridor and is having good room air saturations. She feels that initiation of steroids yesterday may have helped. Would recommend continue steroids and observe overnight. If patient is progressing - could have outpatient ENT follow-up. If clinically she is worsening, would agree with transfer for ENT oncology eval. 2. Larynx cancer: As noted previously, the patient is about 3 weeks out from treatment. Will need outpatient PET. On reviewing the images, I do not feel this represents disease progression. More likely, the patient may have some post-RT edema of the supraglottis. Time with Patient: Greater than 30
[2024-10-09] MEDS: carvediloL 6.25 MG TAB PO SCH (16:28)
[2024-10-09] MEDS: methylPREDNISolone SOD SUCCI 125 MG/2 ML VIAL IV SCH (17:11)
--- NOTE | 2024-10-09 18:12 | P.CONS ---
History of Present Illness - Reason for Consult Consult date: 10/09/24 laryngeal cancer Requesting physician: Star Walter - Chief Complaint TRUDI - History of Present Illness Ms Yu is a 69 year old female with a significant history of laryngeal cancer, who follows with Dr. Mckeon. Initially, patient had seen her PCP, complaining of change in her voice, that had started about November 2022, and had been persistent and slowly progressive. She subsequently developed sore throat. She had a CT scan of the neck and was apparently told that there was an abscess. She was given antibiotic with some partial improvement of the soreness. Due to pe rsistence of hoarseness, she was then seen by ENT, Dr. Guadalupe, 29/10/23. She had indirect laryngoscopy, revealing a lesion located on the left vocal cord. The patient's CT done on 02/16/24 had actually not noted any abscess or other suspicious process. The patient had direct laryngoscopy on 03/24/24, revealing bulky exophytic friable lesion located mainly on the true vocal cord, but with extension to the left arytenoid and the left piriform sinus, as well as the left aryepiglottic fold and epiglottis. 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 p16 was negative. PET scan showed uptake in the primary site, showing lesion in the hypopharynx extending to the vocal cord and crossing the midline as well as probable involvement of a left jugulodigastric node. There was nonspecific uptake noted in the right rib cage that was evaluated by radiation oncology, and was felt to be nonmalignant. Patient was therefore recommended concurrent chemoradiation with weekly cisplatin. She started the same on 05/12/24 and completed tx on 07/19/24. The pt completed treatment with good tolerance. She had PET scheduled for 09/28/24, with f/u with Rad Onc the week after. However, pt was unable to complete PET scan due to panic attack r/t claustrophobia. Patient presents emergency room with progressing shortness of breath and dysphagia over the last 3 days. She also reports noting wheezing upon laying flat. Upon admission CTA chest revealed no evidence for pulmonary embolism no evidence of metastatic disease. CT soft tissue neck with contrast revealed mass in the region of the left hypopharynx extending to the vocal cords with narrowing of the airway to 3 mm which appears progressed to prior study noted on 05/04/2024. Tumor appears to cross midline as noted previously. And nodularity of the vocal cord. Viral PCR negative. WBC 5.8, hemoglobin 14.5, platelets 220,000. Creatinine 0.66, GFR greater than 90. Bilirubin LFTs with WNL. Patient is afebrile, HDS. At today's visit patient does report some improvement in breathing. She is in no respiratory distress, and no stridor noted. Review of Systems 10 point ROS is negative expect as stated in the HPI Past Medical History Past Medical History: Cancer, COPD, GERD/Reflux, Hypertension, Rheumatoid Arthritis (RA), Sleep Apnea/CPAP/BIPAP, Thyroid Disorder, Vascular Disorder Additional Past Medical History / Comment(s): USES CPAP MACHINE and O2 at 2L at night as well. STATES HX OF STOMACH ULCERS. Current "rash on right foot from flip flops". PAD. History of Any Multi-Drug Resistant Organisms: None Reported Past Surgical History: AICD, Heart Catheterization, Pacemaker Additional Past Surgical History / Comment(s): Defibrillator, bilateral cateract surgery, battery change on AICD/Pacemaker 10/2023. Past Anesthesia/Blood Transfusion Reactions: No Reported Reaction, Motion Sickness Type of Cardiac Device: AICD Device Placement Date:: 2012 Past Psychological History: Anxiety, Depression Additional Psychological History / Comment(s): Hospitalized February 2023, states almost had a mental breakdown. Smoking Status: Former smoker Past Alcohol Use History: Abuse Past Drug Use History: None Reported - Past Family History Brother(s) Family Medical History: Deep Vein Thrombosis (DVT) Medications and Allergies Home Medications Medication Instructions Recorded Confirmed Type Albuterol Inhaler [Ventolin Hfa 2 puff INHALATION RT-QID PRN 02/10/18 10/09/24 History Inhaler] ALPRAZolam [Xanax] 1 mg PO TID PRN 09/29/23 10/09/24 History PARoxetine [Paxil] 20 mg PO DAILY 09/30/23 10/09/24 History Fluticasone/Umeclidin/Vilanter 1 puff INHALATION RT-DAILY 03/23/24 10/09/24 History [Trelegy Ellipta 100-62.5-25] Famotidine 20 mg PO DAILY 05/16/24 10/09/24 History HYDROcodone/APAP 5-325MG [[place] 1 tab PO TID PRN 05/16/24 10/09/24 History 5-325] amLODIPine [Norvasc] 2.5 mg PO DAILY 05/16/24 10/09/24 History Atorvastatin [Lipitor] 80 mg PO DAILY 10/09/24 10/09/24 History Betamethasone Dipropionate 1 applic TOPICAL BID PRN 10/09/24 10/09/24 History [Diprolene 0.05% Ointment] Budesonide/Glycopyr/Formoterol 2 puff INHALATION RT-BID 10/09/24 10/09/24 History [Breztri Aerosphere Inhaler] Clotrimazole Cream [Lotrimin Cream] 1 applic TOPICAL BID PRN 10/09/24 10/09/24 History Furosemide [Lasix] 20 mg PO BID 10/09/24 10/09/24 History Hydrocortisone Cream 1 applic TOPICAL QID PRN 10/09/24 10/09/24 History [Hydrocortisone 2.5% Cream] Levothyroxine Sodium [Synthroid] 88 mcg PO DAILY 10/09/24 10/09/24 History Nystatin 100,000 Unit/gm Powd 1 applic TOPICAL QID PRN 10/09/24 10/09/24 History [Mycostatin Powder] Omeprazole [PriLOSEC] 20 mg PO DAILY 10/09/24 10/09/24 History Triamcinolone 0.1% Cream [Kenalog 1 applicatio TOPICAL BID PRN 10/09/24 10/09/24 History 0.1% Cream] carvediloL [Coreg] 6.25 mg PO BID 10/09/24 10/09/24 History hydrOXYzine HCL [Atarax] 25 mg PO TID PRN 10/09/24 10/09/24 History Allergies Allergy/AdvReac Type Severity Reaction Status Date / Time elastic Allergy Rash/Hives Uncoded 10/09/24 09:33 Physical Exam Vitals: Vital Signs Temp Pulse Pulse Resp BP BP Pulse Ox 10/09/24 12:11 98.1 F 61 16 135/77 97 10/09/24 08:00 57 L 15 10/09/24 07:26 98.0 F 57 L 15 109/71 94 L 10/09/24 06:04 98.1 F 61 14 111/69 95 10/09/24 03:22 55 L 16 92/69 95 10/08/24 22:00 53 L 16 152/76 98 10/08/24 19:53 56 L 10/08/24 19:31 97.9 F 52 L 16 135/60 99 10/08/24 18:33 97.8 F 60 18 133/86 100 10/08/24 17:59 24 10/08/24 17:06 98.3 F 52 L 17 119/81 95 Intake and Output 10/08/24 10/09/24 10/09/24 22:59 06:59 14:59 Other: Weight 69.4 kg 69.4 kg - Constitutional General appearance: average body habitus, no acute distress - EENT Eyes: anicteric sclerae, EOMI ENT: hearing grossly normal - Respiratory Respiratory: bilateral: CTA - Cardiovascular Rhythm: regular - Gastrointestinal General gastrointestinal: soft, no tenderness - Integumentary Integumentary: no cyanotic, no jaundiced - Neurologic Neurologic: CNII-XII intact - Musculoskeletal Musculoskeletal: strength equal bilaterally - Psychiatric Psychiatric: A&O x's 3 Results CBC & Chem 7: 10/08/24 21:29 10/08/24 21:29 Labs: Abnormal Lab Results - Last 24 Hours (Table) 10/08/24 10/08/24 10/08/24 Range/Units 18:00 18:00 18:29 Lymphocytes # 0.9 L (1.0-4.8) k/uL D-Dimer 0.93 H (<0.60) mg/L FEU Sodium 136 L (137-145) mmol/L Carbon Dioxide 32 H (22-30) mmol/L 10/08/24 10/08/24 Range/Units 21:29 21:29 Lymphocytes # 0.9 L (1.0-4.8) k/uL D-Dimer (<0.60) mg/L FEU Sodium 135 L (137-145) mmol/L Carbon Dioxide (22-30) mmol/L Comments: CT neck reviewed CT scan - chest: report reviewed Assessment and Plan (1) Dyspnea Current Visit: Yes Status: Acute Priority: High Code(s): R06.00 - DYSPNEA, UNSPECIFIED SNOMED Code(s): 013132651 (2) Laryngeal cancer Current Visit: Yes Status: Acute Priority: High Code(s): C32.9 - MALIGNANT NEOPLASM OF LARYNX, UNSPECIFIED SNOMED Code(s): 458014819 (3) Narrowing of airway Current Visit: Yes Status: Acute Priority: High Code(s): J98.8 - OTHER SPECIFIED RESPIRATORY DISORDERS SNOMED Code(s): 744285023 Plan: Laryngeal cancer: Presented with progressing shortness of breath and dysphagia over the last 3 days. -Oncology history as dictated in the HPI -Completed concurrent chemoradiation with weekly cisplatin on on 07/19/24. The pt completed treatment with good tolerance. She had PET scheduled for 09/28/24, however, pt was unable to complete PET scan due to panic attack r/t claustrophobia. -Upon admission CTA chest revealed no evidence for pulmonary embolism and no evidence of metastatic disease. -CT soft tissue neck with contrast revealed mass in the region of the left hypopharynx extending to the vocal cords with narrowing of the airway to 3 mm which appears progressed to prior study noted on 05/04/2024. Tumor appears to cross midline as noted previously. And nodularity of the vocal cord. -Viral PCR negative. Patient is afebrile, HDS. Breathing is even and unlabored, no stridor noted -Case discussed with rad onc, recommending IV steroids due to possibility of post-RT edema of the supraglottis. IVP solumedrol started -No ENT administrative assistant receptionist this week. Will consult pulmonology, appreciate their recommendations -Will need to reschedule PET CT outpt -Continue to closely monitor. If symptoms progressing/worsening will proceed with transfer to tertiary center for ENT evaluation Discussed POC with patient and family. They were agreeable to the same
--- NOTE | 2024-10-09 19:25 | P.CNPUL ---
History of Present Illness Consult date: 10/09/24 Reason for consult: dyspnea History of present illness: This is a 69-year-old female patient, known history of COPD with an FEV1 of 44% predicted and moderately obstructive sleep apnea, not utilizing CPAP therapy. The patient is also known to have nonischemic cardiomyopathy/CHF and the patient has an AICD in place. The patient has hypothyroidism, chronic anxiety and depression. 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 The patient was given stage III (cT3, cN1, cM0) disease. Based on that, the patient was given systemic chemotherapy and the patient received a total of 70 Gy of radiation therapy which she completed on 07/19/2024. She was having some throat irritation and some increased shortness of breath. No reported stridor. No change in her voice quality. She reported some slight difficulties in swallowing. No reported aspiration. Based on that, the patient presented to the emergency department. I reviewed the CT of the chest that was done in the ED and there is no evidence of any pulmonary embolism. Lungs were essentially clear. No atelectasis. No lung masses. No pleural effusion. There is background COPD. As per the CAT scan of the neck, it showed a soft tissue mass in the region of the left hypopharynx extending to the vocal cords and there was narrowing of the supraglottic area down to a 3 mm airway caliber/dimension. Based on that, the patient was hospitalized and she was started on systemic steroids. At this point in time, the patient is on room air oxygen. She is afebrile. Hemoglobin is stable. Electrolytes are stable. Viral 4 Plex has been negative. She is on room air oxygen and she has no specific complaints and resting comfortably in her bed. She has been maintained on a combination of Symbicort and Spiriva here in the hospital for maintenance of her COPD. On outpatient basis, the patient has been utilizing Trelegy Ellipta. Rest of the home medications have been all resumed. The patient was seen by radiation oncology. Review of Systems Constitutional: Reports as per HPI Eyes: denies as per HPI, denies blurred vision, denies bulging eye, denies decreased vision, denies diplopia, denies discharge, denies dry eye, denies irritation, denies itching, denies pain, denies photophobia, denies loss of peripheral vision, denies loss of vision, denies tunnel vision/blind spots Ears: deny: decreased hearing, ear discharge, earache, tinnitus Ears, nose, mouth and throat: Reports as per HPI Breasts: absent: as per HPI, change in shape, gynecomastia, masses, nipple disch arge, pain, skin changes, swelling Cardiovascular: Reports dyspnea on exertion Respiratory: Reports cough, Reports dyspnea Gastrointestinal: Reports as per HPI Genitourinary: Reports as per HPI Menstruation: Reports as per HPI Musculoskeletal: Reports as per HPI Musculoskeletal: absent: ankle pain, ankle stiffness, ankle swelling, as per HPI, elbow pain, elbow stiffness, elbow swelling, foot pain, foot stiffness, foot swelling, hand pain, hand stiffness, hand swelling, hip pain, hip stiffness, hip swelling, knee pain, knee stiffness, knee swelling, shoulder pain, shoulder stiffness, shoulder swelling, wrist pain, wrist stiffness, wrist swelling Integumentary: Reports as per HPI Neurological: Reports as per HPI Psychiatric: Reports as per HPI Endocrine: Reports as per HPI Hematologic/Lymphatic: Reports as per HPI Allergic/Immunologic: Reports as per HPI Past Medical History Past Medical History: Cancer, COPD, GERD/Reflux, Hypertension, Rheumatoid Arthritis (RA), Sleep Apnea/CPAP/BIPAP, Thyroid Disorder, Vascular Disorder Additional Past Medical History / Comment(s): USES CPAP MACHINE and O2 at 2L at night as well. STATES HX OF STOMACH ULCERS. Current "rash on right foot from flip flops". PAD. History of Any Multi-Drug Resistant Organisms: None Reported Past Surgical History: AICD, Heart Catheterization, Pacemaker Additional Past Surgical History / Comment(s): Defibrillator, bilateral cateract surgery, battery change on AICD/Pacemaker 10/2023. Past Anesthesia/Blood Transfusion Reactions: No Reported Reaction, Motion Sickness Type of Cardiac Device: AICD Device Placement Date:: 2012 Past Psychological History: Anxiety, Depression Additional Psychological History / Comment(s): Hospitalized February 2023, states almost had a mental breakdown. Smoking Status: Former smoker Past Alcohol Use History: Abuse Past Drug Use History: None Reported - Past Family History Brother(s) Family Medical History: Deep Vein Thrombosis (DVT) Medications and Allergies Home Medications Medication Instructions Recorded Confirmed Type Albuterol Inhaler [Ventolin Hfa 2 puff INHALATION RT-QID PRN 02/10/18 10/09/24 History Inhaler] ALPRAZolam [Xanax] 1 mg PO TID PRN 09/29/23 10/09/24 History PARoxetine [Paxil] 20 mg PO DAILY 09/30/23 10/09/24 History Fluticasone/Umeclidin/Vilanter 1 puff INHALATION RT-DAILY 03/23/24 10/09/24 History [Trelegy Ellipta 100-62.5-25] Famotidine 20 mg PO DAILY 05/16/24 10/09/24 History HYDROcodone/APAP 5-325MG [[place] 1 tab PO TID PRN 05/16/24 10/09/24 History 5-325] amLODIPine [Norvasc] 2.5 mg PO DAILY 05/16/24 10/09/24 History Atorvastatin [Lipitor] 80 mg PO DAILY 10/09/24 10/09/24 History Betamethasone Dipropionate 1 applic TOPICAL BID PRN 10/09/24 10/09/24 History [Diprolene 0.05% Ointment] Budesonide/Glycopyr/Formoterol 2 puff INHALATION RT-BID 10/09/24 10/09/24 History [Breztri Aerosphere Inhaler] Clotrimazole Cream [Lotrimin Cream] 1 applic TOPICAL BID PRN 10/09/24 10/09/24 History Furosemide [Lasix] 20 mg PO BID 10/09/24 10/09/24 History Hydrocortisone Cream 1 applic TOPICAL QID PRN 10/09/24 10/09/24 History [Hydrocortisone 2.5% Cream] Levothyroxine Sodium [Synthroid] 88 mcg PO DAILY 10/09/24 10/09/24 History Nystatin 100,000 Unit/gm Powd 1 applic TOPICAL QID PRN 10/09/24 10/09/24 History [Mycostatin Powder] Omeprazole [PriLOSEC] 20 mg PO DAILY 10/09/24 10/09/24 History Triamcinolone 0.1% Cream [Kenalog 1 applicatio TOPICAL BID PRN 10/09/24 10/09/24 History 0.1% Cream] carvediloL [Coreg] 6.25 mg PO BID 10/09/24 10/09/24 History hydrOXYzine HCL [Atarax] 25 mg PO TID PRN 10/09/24 10/09/24 History Allergies Allergy/AdvReac Type Severity Reaction Status Date / Time elastic Allergy Rash/Hives Uncoded 10/09/24 09:33 Physical Exam Vitals: Vital Signs Temp Pulse Pulse Resp BP BP Pulse Ox 10/09/24 12:11 98.1 F 61 16 135/77 97 10/09/24 08:00 57 L 15 10/09/24 07:26 98.0 F 57 L 15 109/71 94 L 10/09/24 06:04 98.1 F 61 14 111/69 95 10/09/24 03:22 55 L 16 92/69 95 10/08/24 22:00 53 L 16 152/76 98 10/08/24 19:53 56 L 10/08/24 19:31 97.9 F 52 L 16 135/60 99 10/08/24 18:33 97.8 F 60 18 133/86 100 10/08/24 17:59 24 Intake and Output 10/09/24 10/09/24 10/09/24 06:59 14:59 22:59 Other: Weight 69.4 kg The patient appeared well nourished and normally developed. Vital signs as documented. Head exam is unremarkable. No scleral icterus or corneal arcus noted. Neck is without jugular venous distension, thyromegaly, or carotid bruits. Carotid upstrokes are brisk bilaterally. There is no evidence of inspiratory stridor. Lungs are clear to auscultation and percussion. Breath sounds are diminished. There are equal and symmetrical and there is no significant wheezing appreciated. Cardiac exam reveals the PMI to be normally sized and situated. Rhythm is regula r. First and second heart sounds normal. No murmurs, rubs or gallops. Abdominal exam reveals normal bowel sounds, no masses, no organomegaly and no aortic enlargement. Extremities are nonedematous and both femoral and pedal pulses are normal. Examination of the skin revealed no evidence of significant rashes, suspicious appearing nevi or other concerning lesions. Neurologically, the patient is awake and alert and the patient does not have any focal neurological deficit. Cranial nerves are essentially intact. Results - Laboratory Findings CBC and BMP: 10/08/24 21:29 10/08/24 21:29 PT/INR, D-dimer PT 11.1 sec (10.0-12.5) 10/08/24 18:00 INR 1.0 (<1.2) 10/08/24 18:00 D-Dimer 0.93 mg/L FEU (<0.60) H 10/08/24 18:00 Abnormal lab findings: Abnormal Labs 10/08/24 10/08/24 10/08/24 18:00 18:00 18:29 Lymphocytes # 0.9 L D-Dimer 0.93 H Sodium 136 L Carbon Dioxide 32 H 10/08/24 10/08/24 21:29 21:29 Lymphocytes # 0.9 L D-Dimer Sodium 135 L Carbon Dioxide - Diagnostic Findings Chest x-ray: image reviewed CT scan - chest: image reviewed U/S of Legs: image reviewed Assessment and Plan Plan: Squamous cell carcinoma of the vocal cord, stage III (cT3, cN1, cM0) disease and the patient was given definitive concurrent chemoradiation therapy, [place] based regimen in addition to 70 Gy of radiation therapy which she completed on 07/19/2024 Dyspnea. CAT scan of the neck shows narrowing in the hypopharyngeal area and it was reported the patient's airway is reduced down to 3 mm in size. Nevertheless, clinically, there is no stridor, there is adequate air entry bilaterally and the patient has no change in her voice quality. No reported cough or sputum. No fever or chills. No leukocytosis. COPD, with an FEV1 of 44% of predicted Obstructive sleep apnea, not receiving CPAP therapy for now Nonischemic cardiomyopathy, post AICD placement Hypothyroidism Chronic anxiety Chronic depression Former smoker Plan Continue IV Solu-Medrol Continue Symbicort and Spiriva as maintenance regarding her COPD and DuoNeb nebulizer treatments [id number] Patient currently on room air oxygen Will discuss the finding with ENT. If possible, a direct bedside laryngoscopy will be useful. If unable to do so, we will inspect the patient with direct bro nchoscopy. Clinically stable No hypoxemia or signs of any respiratory distress or stridor at this point in time. Time with Patient: Greater than 30
[2024-10-09] MEDS: SYMBICORT 160-4.5 MCG INHALER INHALATION SCH (20:10)
[2024-10-10] MEDS: LEVOTHYROXINE 88 MCG TAB PO SCH (04:40)
[2024-10-10 07:37] VITALS: RESP 16
[2024-10-10] MEDS ORDERED: NON FORMULARY DRUG (Fluticasone/Umeclidin/Vilanter [Trelegy Ellipta 100-62.5-25] 1 EACH Bl INHALATION SCH (08:00)
[2024-10-10] MEDS: PANTOPRAZOLE 40 MG TABLET PO SCH (08:17)
[2024-10-10] MEDS: TIOTROPIUM 2.5 MCG INHALER INHALATION SCH (09:29)
[2024-10-10] MEDS: LIDOCAINE 2% INJ 20 MG/ML INTRATRACH ONE ×2 (13:13→13:26)
[2024-10-10] MEDS ORDERED: KETAMINE HCL IN 0.9 % NACL 50 MG/5 ML SYRINGE ONE (13:15)
[2024-10-10] MEDS ORDERED: LIDOCAINE 1% INJ 10MG/ML (20 ML MDV) ONE (13:15)
[2024-10-10] MEDS ORDERED: PROPOFOL 10 MG/ML 20 ML VIAL IV ONE (13:15)
[2024-10-10] MEDS: LACTATED RINGERS 1,000 ML IV ONE (13:23)
[2024-10-10 14:59] VITALS: BP 151/94; PULSE 52; TEMP 98.2
--- NOTE | 2024-10-10 16:30 | P.PCN ---
Date of Procedure: 10/10/24 Preoperative Diagnosis: Squamous cell carcinoma of the vocal cord Postoperative Diagnosis: Squamous cell carcinoma of the vocal cord, postradiation therapy Procedure(s) Performed: Patent upper and lower airways. Mucosal irregularity at the level of the left false vocal cord related to some residual posttreatment inflammatory changes versus malignancy. No signs of any upper airway obstruction. Anesthesia: MAC Surgeon: Tati Benjamin Estimated Blood Loss (ml): 0 Pathology: other Condition: stable Disposition: floor Operative Findings: This is a flexible bronchoscopy that was done for an upper airway inspection. 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 Most recent CAT scan of the chest showed possibility of a narrowing in his glottic area with the airway estimated being at 3 mm in size based on the CAT scan of the neck. Based on that, a bronchoscopy was done for direct inspection of the upper airways. A consent was obtained. A timeout was done. Anesthetic agent was administered by CARE NURSE RN at bedside. The patient was given propofol The fracture bronchoscope was easily passed through the left nostril and weakness of the posterior pharynx. Limited secretions were encountered that was suctioned out. Following that, the bronchoscope was advanced to the larynx. The epiglottis was asymmetric and slightly shifted to the right. The vallecula was within normal limits. At the level of the false vocal cord, there was some mucosal irregularities on the left which is probably site of a previously treated squamous cell carcinoma. The true vocal cords were symmetrical and ful ly functional with normal abduction and adduction. A total of 2 cc of 1% lidocaine was applied to the vocal cord and I was able to pass the flexible bronchoscope passed the vocal cord into the subglottic trachea. No evidence of any tracheal stenosis. Trachea was patent. Examination of the trachea and the bilateral mainstem bronchi and the various segments on the right and the left were all patent with limited respiratory secretions. The bronchoscope was removed. The procedure was terminated. The patient has adequate airway patency. No signs of any compromise in the airway related to vo pamela cord tumor or radiation therapy offered to the vocal cord. Vocal cords were functional and patent. Subglottic trachea was patent. Supraglottic airways were also patent. Plan Completed course of prednisone burst taper. Management of COPD. Will follow.
--- NOTE | 2024-10-10 16:32 | P.PN ---
Subjective Progress Note Date: 10/10/24 10/10/2024, the patient is stable. No stridor. No respiratory distress. No difficulty swallowing. She underwent a flexible bronchoscopy with inspection of the upper and lower airways. Examination revealed some mucosal irregularities along the false vocal cord on the left. Nevertheless, the true vocal cords were functional. No signs of any airway compromise involving the upper or lower airways. The patient tolerated the procedure well without any major difficulties. The patient remains on steroids. Noted the bronchoscopy also showed some scant respiratory secretions and lower airways and/or secretions were suctioned out without any major difficulties. She is on room air oxygen. Objective - Vital Signs Vital signs: Vital Signs Temp 98.2 F 10/10/24 14:58 Pulse 52 L 10/10/24 14:58 Resp 16 10/10/24 14:58 BP 151/94 10/10/24 14:58 Pulse Ox 98 10/10/24 14:58 FiO2 Intake & Output 10/09/24 10/10/24 10/10/24 18:59 06:59 18:59 Intake Total 540 1180 Balance 540 1180 Intake: IV 100 Oral 540 1080 Other: # Voids 4 - Exam The patient appeared well nourished and normally developed. Vital signs as documented. Head exam is unremarkable. No scleral icterus or corneal arcus noted. Neck is without jugular venous distension, thyromegaly, or carotid bruits. Carotid upstrokes are brisk bilaterally. Lungs are clear to auscultation and percussion. Cardiac exam reveals the PMI to be normally sized and situated. Rhythm is regul ar. First and second heart sounds normal. No murmurs, rubs or gallops. Abdominal exam reveals normal bowel sounds, no masses, no organomegaly and no aortic enlargement. Extremities are nonedematous and both femoral and pedal pulses are normal. Examination of the skin revealed no evidence of significant rashes, suspicious appearing nevi or other concerning lesions. Neurologically, the patient is awake and alert and the patient does not have any focal neurological deficit. Cranial nerves are essentially intact. - Labs CBC & Chem 7: 10/08/24 21:29 10/08/24 21:29 Assessment and Plan Plan: Squamous cell carcinoma of the vocal cord, stage III (cT3, cN1, cM0) disease and the patient was given definitive concurrent chemoradiation therapy, [place] based regimen in addition to 70 Gy of radiation therapy which she completed on 07/19/2024 Dyspnea. CAT scan of the neck shows narrowing in the hypopharyngeal area and it was reported the patient's airway is reduced down to 3 mm in size. Nevertheless, clinically, there is no stridor, there is adequate air entry bilaterally and the patient has no change in her voice quality. No reported cough or sputum. No fever or chills. No leukocytosis. COPD, with an FEV1 of 44% of predicted Obstructive sleep apnea, not receiving CPAP therapy for now Nonischemic cardiomyopathy, post AICD placement Hypothyroidism Chronic anxiety Chronic depression Former smoker Plan flexible bronchoscopy with inspection of the upper and lower airway was done. Please refer to the full report. No signs of any airway compromise. Vocal cord function is within normal limits. No evidence of any tumor obstructing the upper airway. Postradiation inflammatory changes seen at the level of the left false vocal cord. Prednisone burst taper Continue Symbicort and Spiriva as maintenance regarding her COPD and DuoNeb nebulizer treatments [id number] Patient currently on room air oxygen ENT follow-up Possible home today. No hypoxemia or signs of any respiratory distress or stridor at this point in time.
--- NOTE | 2024-10-10 17:48 | P.PN ---
Subjective Progress Note Date: 10/10/24 No acute events overnight. Reporting improvement in SOB. Scheduled today for direct bronchoscopy. SPO2 100% on room air, no stridor noted Objective - Vital Signs Vital signs: Vital Signs Temp 98.1 F 10/10/24 11:38 Pulse 54 L 10/10/24 11:38 Resp 16 10/10/24 11:38 BP 145/74 10/10/24 11:38 Pulse Ox 100 10/10/24 11:38 FiO2 Intake & Output 10/09/24 10/10/24 10/10/24 18:59 06:59 18:59 Intake Total 540 Balance 540 Intake: Oral 540 - Constitutional General appearance: Present: average body habitus, no acute distress - EENT Eyes: Present: anicteric sclerae, EOMI ENT: Present: hearing grossly normal - Respiratory Details: breathing is even and unlabored Respiratory: bilateral: CTA - Cardiovascular Details: well perfused - Integumentary Integumentary: Absent: cyanotic - Neurologic Neurologic: Present: CNII-XII intact - Musculoskeletal Musculoskeletal: Present: strength equal bilaterally - Psychiatric Psychiatric: Present: A&O x's 3 - Labs CBC & Chem 7: 10/08/24 21:29 10/08/24 21:29 Assessment and Plan (1) Dyspnea Status: Acute Priority: High Code(s): R06.00 - DYSPNEA, UNSPECIFIED SNOMED Code(s): 232204112 (2) Laryngeal cancer Status: Acute Priority: High Code(s): C32.9 - MALIGNANT NEOPLASM OF LARYNX, UNSPECIFIED SNOMED Code(s): 652898815 (3) Narrowing of airway Status: Acute Priority: High Code(s): J98.8 - OTHER SPECIFIED RESPIRATORY DISORDERS SNOMED Code(s): 140471218 Plan: Laryngeal cancer: Presented with progressing shortness of breath and dysphagia over the last 3 days. -Oncology history as dictated in the HPI -Completed concurrent chemoradiation with weekly cisplatin on on 07/19/24. The pt completed treatment with good tolerance. She had PET scheduled for 09/28/24, however, pt was unable to complete PET scan due to panic attack r/t claustrophobia. -Upon admission CTA chest revealed no evidence for pulmonary embolism and no evidence of metastatic disease. -CT soft tissue neck with contrast revealed mass in the region of the left hypopharynx extending to the vocal cords with narrowing of the airway to 3 mm which appears progressed to prior study noted on 05/04/2024. Tumor appears to cross midline as noted previously. And nodularity of the vocal cord. -Viral PCR negative. Patient is afebrile, HDS. Breathing is even and unlabored, no stridor noted -Case discussed with rad onc, recommending IV steroids due to possibility of post-RT edema of the supraglottis. IV solumedrol started -No ENT portable irrigation operator this week. Pulmonology consulted. Plan for direct bronchoscopy today -Will need to reschedule PET CT outpt -Continue to closely monitor. If symptoms progressing/worsening will proceed with transfer to tertiary center for ENT evaluation Discussed POC with patient and family. They were agreeable to the same
--- NOTE | 2024-10-11 01:52 | DS ---
DISCHARGE SUMMARY CHIEF COMPLAINT: Difficulty breathing and swallowing. HISTORY OF PRESENT ILLNESS AND PHYSICAL EXAMINATION: Details of this lady's history and physical can be found in the initial workup. LABORATORY STUDIES: While she was in the hospital, she had laboratory studies, details of which can be found in the laboratory section of her chart. COURSE IN THE HOSPITAL: After admission, she was placed on bedrest and started on intravenous fluids and she was seen by Radiation Oncology as well as Oncology. The swelling improved probably related to steroids. It was felt that she could be discharged home and she will follow up as an outpatient. FINAL DIAGNOSES: 1. Carcinoma of the larynx. 2. Difficulty swallowing. 3. Stridor. 4. Chronic obstructive pulmonary disease. OPERATIONS: None. CONSULTATIONS: Radiation Oncology and Oncology. MMODL / WINSOMEN: [id number] /
--- NOTE | 2024-10-11 02:52 | PN ---
PROGRESS NOTE CHIEF COMPLAINT: Carcinoma of the larynx with stridor. HISTORY OF PRESENT ILLNESS: This lady is feeling better and she has less difficulty breathing and swallowing. She may be able to go home today. PHYSICAL EXAMINATION: CHEST: Clear. CARDIAC: Normal. ABDOMEN: Soft and nontender. IMPRESSION: Carcinoma of the larynx. PLAN: Possibly home later today, pending ENT's evaluation. MMODL / IJN: [id number] /
== END 2024-10-10 16:14 | disposition home or self-care (01) | DRG 147 ==
LOC: EC 16:50 → OBSVTOIN 20:34 → 5NMEDONC 20:34
PROVIDERS: ADMIT Family Medicine; ATTEND Family Medicine
PROC: 0BJ08ZZ Inspection of Tracheobronchial Tree, Via Natural or Artificial Opening Endoscopic (ICD-10-PCS; principal; 2024-10-10 07:30)
DX: C32.0 Malignant neoplasm of glottis (principal); I42.8 Other cardiomyopathies; I11.0 Hypertensive heart disease with heart failure; I50.9 Heart failure, unspecified; J44.9 Chronic obstructive pulmonary disease, unspecified; Z11.52 Encounter for screening for COVID-19; M06.9 Rheumatoid arthritis, unspecified; E03.9 Hypothyroidism, unspecified; F32.A Depression, unspecified; F40.240 Claustrophobia; Z79.890 Hormone replacement therapy; F41.0 Panic disorder [episodic paroxysmal anxiety]; T38.0X5A Adverse effect of glucocorticoids and synthetic analogues, initial encounter; R13.10 Dysphagia, unspecified; X58.XXXA Exposure to other specified factors, initial encounter; Z95.810 Presence of automatic (implantable) cardiac defibrillator; Z87.11 Personal history of peptic ulcer disease; Z85.21 Personal history of malignant neoplasm of larynx; Z79.899 Other long term (current) drug therapy; Z98.42 Cataract extraction status, left eye; Z98.41 Cataract extraction status, right eye
CPT/HCPCS: 31624; 36415; 70491; 71046; 71275; 80053; 83880; 84484; 85025; 85379; 85610; 85730; 87636; 93005; 94640; 96361; 96374; 99285

== ENCOUNTER → 2024-10-19 | Outpatient (CLI) | payer MEDICARE, OTHER ==
--- NOTE | 2024-10-19 21:01 | PE ---
EXAMINATION TYPE: PET CT fusion skull to thigh DATE OF EXAM: 10/19/2024 CLINICAL INDICATION:Female, 69 years old with history of C32.0; TECHNIQUE: Following the intravenous administration of 10.81 mCi of F-18 FDG, whole body images are performed from the skull vertex to the midthigh. Images are reviewed on the computer in the coronal , axial, and sagittal planes. Reconstructed rotating images are created on independent workstation a nd reviewed on the computer. A non-contrast CT is performed in conjunction with the PET scan. Gluco se level 91 mg/dL CT DLP: 613.24 mGycm, Automated exposure control for dose reduction was used. COMPARISON: CT 10/08/2024, 10/26/2017, PET/CT 05/04/2024, MRI: None FINDINGS: Mediastinal SUV mean is 3.1. Hepatic parenchyma SUV mean is 3.5. SKULL BASE AND NECK: There is again asymmetric soft tissue within the anterior left hypopharynx just above the hyoid at si te of prior malignancy. Additionally there is improvement in previously demonstrated narrowing of the airway now measuring up to 9 mm. Decreased appearance of nodularity of the vocal cord. Overall appea zachary appears improved from prior CT and PET/CT. None of these regions demonstrate significant FDG ac tivity above background. Demonstrates a max SUV of 3.5. Increased FDG uptake within the midline anterior tongue with a max SUV of 19. CHEST, MEDIASTINUM, AND HILAR REGION: No suspicious radiotracer activity. ABDOMEN AND PELVIS: No suspicious radiotracer activity. MUSCULOSKELETAL STRUCTURES: No suspicious radiotracer activity. OTHER CT: Bilateral aphakia. Bilateral carotid bulb calcifications. Left anterior chest wall cardiac pacemaker device with leads terminating in the right atrium, right ventricle, and coronary sinus. Tra ce pericardial effusion. Mild cardiomegaly. Mild atelectatic calcification of the aorta and its branc hes. Small hiatal hernia. Right renal upper pole 2.6 cm cyst. Mild centrilobular emphysematous change s. Hepatomegaly. IMPRESSION: 1. Improvement of previously demonstrated abnormal soft tissue within the left anterior hypopharynx extending to the vocal cords from prior CT and PET/CT. This is at site of prior malignancy. No FDG ac tivity above background. Findings likely represent treated disease with residual malignancy not exclu ded. Consider short-term follow-up CT in 3 months. 2. Increased radiotracer uptake within the anterior midline tongue likely related to a benign proces s such as chewing or talking. [facility], , 10/19/2024 8:59 PM
== END | disposition home or self-care (01) ==
LOC: RADPETMAIN 11:09
PROVIDERS: ATTEND Radiology Radiation Oncology
DX: C32.0 Malignant neoplasm of glottis (principal); I31.39 Other pericardial effusion (noninflammatory); I51.7 Cardiomegaly; F17.210 Nicotine dependence, cigarettes, uncomplicated
CPT/HCPCS: 78815; A9552

== ENCOUNTER 2024-11-07 18:45 | Emergency (ER) | payer MEDICARE, OTHER ==
--- NOTE | 2024-11-07 19:42 | ED ---
URI HPI - General Chief Complaint: Upper Respiratory Infection Stated Complaint: Sore throat Time Seen by Provider: 11/07/24 19:38 Source: patient, RN notes reviewed Mode of arrival: ambulatory Limitations: no limitations - History of Present Illness Initial Comments: 69-year-old female presenting for sore throat x 4 days. States she started smoking cigarettes at a [employer] 4 days ago and since then has been having a painful, scratchy throat. She reports her throat feels "swollen" and feels as though she needs a steroid. States she has had this before and she was given a steroid injection which helped. Denies nasal congestion, fever, cough. States she recently finished throat cancer treatment. No difficulty breathing or swallowing. - Related Data Home Medications Medication Instructions Recorded Confirmed Albuterol Inhaler [Ventolin Hfa 2 puff INHALATION RT-QID PRN 02/10/18 10/09/24 Inhaler] ALPRAZolam [Xanax] 1 mg PO TID PRN 09/29/23 10/09/24 PARoxetine [Paxil] 20 mg PO DAILY 09/30/23 10/09/24 Fluticasone/Umeclidin/Vilanter 1 puff INHALATION RT-DAILY 03/23/24 10/09/24 [Trelegy Ellipta 100-62.5-25] Famotidine 20 mg PO DAILY 05/16/24 10/09/24 HYDROcodone/APAP 5-325MG [Eagle 1 tab PO TID PRN 05/16/24 10/09/24 5-325] amLODIPine [Norvasc] 2.5 mg PO DAILY 05/16/24 10/09/24 Atorvastatin [Lipitor] 80 mg PO DAILY 10/09/24 10/09/24 Betamethasone Dipropionate 1 applic TOPICAL BID PRN 10/09/24 10/09/24 [Diprolene 0.05% Ointment] Budesonide/Glycopyr/Formoterol 2 puff INHALATION RT-BID 10/09/24 10/09/24 [Breztri Aerosphere Inhaler] Clotrimazole Cream [Lotrimin Cream] 1 applic TOPICAL BID PRN 10/09/24 10/09/24 Furosemide [Lasix] 20 mg PO BID 10/09/24 10/09/24 Hydrocortisone Cream 1 applic TOPICAL QID PRN 10/09/24 10/09/24 [Hydrocortisone 2.5% Cream] Levothyroxine Sodium [Synthroid] 88 mcg PO DAILY 10/09/24 10/09/24 Nystatin 100,000 Unit/gm Powd 1 applic TOPICAL QID PRN 10/09/24 10/09/24 [Mycostatin Powder] Omeprazole [PriLOSEC] 20 mg PO DAILY 10/09/24 10/09/24 Triamcinolone 0.1% Cream [Kenalog 1 applicatio TOPICAL BID PRN 10/09/24 10/09/24 0.1% Cream] carvediloL [Coreg] 6.25 mg PO BID 10/09/24 10/09/24 hydrOXYzine HCL [Atarax] 25 mg PO TID PRN 10/09/24 10/09/24 Previous Rx's Medication Instructions Recorded predniSONE [Deltasone] 40 mg PO DAILY #10 tab 11/07/24 Allergies Allergy/AdvReac Type Severity Reaction Status Date / Time elastic Allergy Rash/Hives Uncoded 11/07/24 18:48 Review of Systems ROS Statement: Those systems with pertinent positive or pertinent negative responses have been documented in the HPI. ROS Other: All systems not noted in ROS Statement are negative. Past Medical History Past Medical History: Cancer, COPD, GERD/Reflux, Hypertension, Rheumatoid Arthritis (RA), Sleep Apnea/CPAP/BIPAP, Thyroid Disorder, Vascular Disorder Additional Past Medical History / Comment(s): USES CPAP MACHINE and O2 at 2L at night as well. STATES HX OF STOMACH ULCERS. Current "rash on right foot from flip flops". PAD. History of Any Multi-Drug Resistant Organisms: None Reported Past Surgical History: AICD, Heart Catheterization, Pacemaker Additional Past Surgical History / Comment(s): Defibrillator, bilateral cateract surgery, battery change on AICD/Pacemaker 10/2023. Past Anesthesia/Blood Transfusion Reactions: No Reported Reaction, Motion Sickness Type of Cardiac Device: AICD Device Placement Date:: 2012 Past Psychological History: Anxiety, Depression Smoking Status: Former smoker Past Alcohol Use History: Abuse Past Drug Use History: None Reported - Past Family History Brother(s) Family Medical History: Deep Vein Thrombosis (DVT) General Exam Limitations: no limitations General appearance: alert, in no apparent distress Head exam: Present: atraumatic, normocephalic, normal inspection Eye exam: Present: normal appearance, PERRL, EOMI. Absent: scleral icterus, conjunctival injection, periorbital swelling ENT exam: Present: normal exam, normal oropharynx, mucous membranes moist Neck exam: Present: normal inspection, full ROM. Absent: tenderness, meningismus, lymphadenopathy Respiratory exam: Present: normal lung sounds bilaterally. Absent: respiratory distress, wheezes, rales, rhonchi, stridor Cardiovascular Exam: Present: regular rate, normal rhythm, normal heart sounds. Absent: systolic murmur, diastolic murmur, rubs, gallop, clicks Neurological exam: Present: alert, oriented X3 Psychiatric exam: Present: normal affect, normal mood Skin exam: Present: warm, dry, intact, normal color. Absent: rash Course Vital Signs 11/07/24 18:46 Temperature 98.3 F Pulse Rate 96 Respiratory 24 Rate Blood Pressure 164/92 O2 Sat by Pulse 97 Oximetry Medical Decision Making - Medical Decision Making Was pt. sent in by a medical professional or institution (, PA, [employer]URAL MECHANIC, urgent care, hospital, or custodial...) When possible be specific @ -No Did you speak to anyone other than the patient for history (EMS, parent, family, police, friend...)? What history was obtained from this source @ -No Did you review nursing and triage notes (agree or disagree)? Why? @ -I reviewed and agree with nursing and triage notes Were old charts reviewed (outside hosp., previous admission, EMS record, old EKG, old radiological studies, urgent care reports/EKG's, custodial records)? Report findings @ -No old charts were reviewed Differential Diagnosis (chest pain, altered mental status, abdominal pain women, abdominal pain men, vaginal bleeding, weakness, fever, dyspnea, syncope, headache, dizziness, GI bleed, back pain, seizure, CVA, palpatations, mental health, musculoskeletal)? @ -Allergic rhinitis, pharyngitis, COVID-19, influenza, RSV, strep pharyngitis EKG interpreted by me (3pts min.). @ -None X-rays interpreted by me (1pt min.). @ -None done CT interpreted by me (1pt min.). @ -None done U/S interpreted by me (1pt. min.). @ -None done What testing was considered but not performed or refused? (CT, X-rays, U/S, labs)? Why? @ -None What meds were considered but not given or refused? Why? @ -None Did you discuss the management of the patient with other professionals (professionals i.e. , PA, DURAL MECHANIC, lab, RT, psych nurse, child protective services social worker, manager transportation planning, teacher, intelligence officer basic, senior case manager)? Give summary @ -No Was smoking cessation discussed for >3mins.? @ -No Was critical care preformed (if so, how long)? @ -No Were there social determinants of health that impacted care today? How? (Homelessness, low income, unemployed, alcoholism, drug addiction, transportation, low edu. Level, literacy, decrease access to med. care, half-way, rehab)? @ -No Was there de-escalation of care discussed even if they declined (Discuss DNR or withdrawal of care, Hospice)? DNR status @ -No What co-morbidities impacted this encounter? (DM, HTN, Smoking, COPD, CAD, Cancer, CVA, ARF, Chemo, Hep., AIDS, mental health diagnosis, sleep apnea, morbid obesity)? @ -None Was patient admitted / discharged? Hospital course, mention meds given and route, prescriptions, significant lab abnormalities, going to OR and other pertinent info. @ -Discharge. 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 She is requesting steroids today as she states this has helped her symptoms in the past. Patient is well-appearing, no acute distress. No sign of bacterial infection on examination. Patient was provided with IM steroid and ibuprofen for supportive care. Patient is negative for COVID-19, influenza, RSV, strep pharyngitis. Discussed negative results with patient. Advised patient to discontinue smoking. Provided with outpatient course of steroids. Appropriate return precautions and follow-up care discussed. Case was discussed with the ED attending Dr. Richey. Undiagnosed new problem with uncertain prognosis? @ -No Drug Therapy requiring intensive monitoring for toxicity (Heparin, Nitro, Insulin, Cardizem)? @ -No Were any procedures done? @ -No Diagnosis/symptom? @ -Pharyngitis Acute, or Chronic, or Acute on Chronic? @ -Acute Uncomplicated (without systemic symptoms) or Complicated (systemic symptoms)? @ -Uncomplicated Side effects of treatment? @ -No Exacerbation, Progression, or Severe Exacerbation? @ -No Poses a threat to life or bodily function? How? (Chest pain, [place], [place], pneumonia, PE, COPD, DKA, ARF, appy, cholecystitis, CVA, Diverticulitis, Homicidal, Suicidal, threat to staff... and all critical care pts) @ -No - Lab Data Lab Results 11/07/24 11/07/24 Range/Units 19:48 19:48 Influenza Type A (PCR) Not Detected (Not Detectd) Influenza Type B (PCR) Not Detected (Not Detectd) RSV (PCR) Not Detected (Not Detectd) SARS-CoV-2 (PCR) Not Detected (Not Detectd) Group A Strep (PCR) NOT DETECTED (Not Detectd) Disposition Clinical Impression: Pharyngitis Disposition: HOME SELF-CARE Condition: Stable Instructions (If sedation given, give patient instructions): Pharyngitis (ED) Additional Instructions: Start steroid tomorrow. Take daily as directed. Please return to the Emergency Department if symptoms worsen or any other concerns. Prescriptions: predniSONE [Deltasone] 40 mg PO DAILY #10 tab Is patient prescribed a controlled substance at d/c from ED?: No Referrals: Tani Emmanuel MD [Primary Care Provider] - 1-2 days Time of Disposition: 20:51
[2024-11-07] MEDS: IBUPROFEN 600 MG TAB PO STA (19:46)
[2024-11-07] MEDS: DEXAMETHASONE SOD PHOSPHATE 10 MG/ML 1 ML VIAL IM STA (19:46)
[2024-11-07 20:39] LABS: Influenza A Not Detected (Not Detectd); Influenza B Not Detected (Not Detectd); RSV Not Detected (Not Detectd)
[2024-11-07 21:14] VITALS: BP 129/74; PULSE 75; RESP 18; TEMP 97.9
== END 2024-11-07 21:14 | disposition home or self-care (01) ==
LOC: EC 18:45
DX: J02.9 Acute pharyngitis, unspecified (principal); Z87.891 Personal history of nicotine dependence; Z91.09 Other allergy status, other than to drugs and biological substances
CPT/HCPCS: 87651; 87636; 99283; 96372; J1100

== ENCOUNTER 2024-11-13 17:09 | Emergency (ER) | payer MEDICARE, OTHER ==
[2024-11-13 17:15] VITALS: TEMP 98
--- NOTE | 2024-11-13 17:40 | ED ---
ENT HPI - General Chief complaint: ENT Stated complaint: Throat Swollen Time Seen by Provider: 11/13/24 17:16 Source: patient, RN notes reviewed Mode of arrival: ambulatory Limitations: no limitations - History of Present Illness Initial comments: This is a 69-year-old female who presents to the emergency department for throat pain and swelling. States that it started at around a week ago. She was evaluated here initially and put on a Medrol Dosepak. States that it feels like it may have helped to some extent, however symptoms then worsened again. This is making it difficult to breathe and swallow. She has a history of throat cancer but was told that she was in remission. Most recently finished treatment earlier this year. She does also report a cough that has been going on for the last several days. She tried to call Dr. Pool, and made an appointment with him for tomorrow. MD complaint: sore throat - Related Data Home Medications Medication Instructions Recorded Confirmed Albuterol Inhaler [Ventolin Hfa 2 puff INHALATION RT-QID PRN 02/10/18 10/09/24 Inhaler] ALPRAZolam [Xanax] 1 mg PO TID PRN 09/29/23 10/09/24 PARoxetine [Paxil] 20 mg PO DAILY 09/30/23 10/09/24 Fluticasone/Umeclidin/Vilanter 1 puff INHALATION RT-DAILY 03/23/24 10/09/24 [Trelegy Ellipta 100-62.5-25] Famotidine 20 mg PO DAILY 05/16/24 10/09/24 HYDROcodone/APAP 5-325MG [[place] 1 tab PO TID PRN 05/16/24 10/09/24 5-325] amLODIPine [Norvasc] 2.5 mg PO DAILY 05/16/24 10/09/24 Atorvastatin [Lipitor] 80 mg PO DAILY 10/09/24 10/09/24 Betamethasone Dipropionate 1 applic TOPICAL BID PRN 10/09/24 10/09/24 [Diprolene 0.05% Ointment] Budesonide/Glycopyr/Formoterol 2 puff INHALATION RT-BID 10/09/24 10/09/24 [Breztri Aerosphere Inhaler] Clotrimazole Cream [Lotrimin Cream] 1 applic TOPICAL BID PRN 10/09/24 10/09/24 Furosemide [Lasix] 20 mg PO BID 10/09/24 10/09/24 Hydrocortisone Cream 1 applic TOPICAL QID PRN 10/09/24 10/09/24 [Hydrocortisone 2.5% Cream] Levothyroxine Sodium [Synthroid] 88 mcg PO DAILY 10/09/24 10/09/24 Nystatin 100,000 Unit/gm Powd 1 applic TOPICAL QID PRN 10/09/24 10/09/24 [Mycostatin Powder] Omeprazole [PriLOSEC] 20 mg PO DAILY 10/09/24 10/09/24 Triamcinolone 0.1% Cream [Kenalog 1 applicatio TOPICAL BID PRN 10/09/24 10/09/24 0.1% Cream] carvediloL [Coreg] 6.25 mg PO BID 10/09/24 10/09/24 hydrOXYzine HCL [Atarax] 25 mg PO TID PRN 10/09/24 10/09/24 Previous Rx's Medication Instructions Recorded predniSONE [Deltasone] 40 mg PO DAILY #10 tab 11/08/24 predniSONE 50 mg PO DAILY 5 Days #5 tab 11/13/24 Allergies Allergy/AdvReac Type Severity Reaction Status Date / Time elastic Allergy Rash/Hives Uncoded 11/13/24 17:15 Review of Systems ROS Statement: Those systems with pertinent positive or pertinent negative responses have been documented in the HPI. ROS Other: All systems not noted in ROS Statement are negative. Past Medical History Past Medical History: Cancer, COPD, GERD/Reflux, Hypertension, Rheumatoid Arthritis (RA), Sleep Apnea/CPAP/BIPAP, Thyroid Disorder, Vascular Disorder Additional Past Medical History / Comment(s): USES CPAP MACHINE and O2 at 2L at night as well. STATES HX OF STOMACH ULCERS. Current "rash on right foot from flip flops". PAD. History of Any Multi-Drug Resistant Organisms: None Reported Past Surgical History: AICD, Heart Catheterization, Pacemaker Additional Past Surgical History / Comment(s): Defibrillator, bilateral cateract surgery, battery change on AICD/Pacemaker 10/2023. Past Anesthesia/Blood Transfusion Reactions: No Reported Reaction, Motion Sickness Type of Cardiac Device: AICD Device Placement Date:: 2012 Past Psychological History: Anxiety, Depression Smoking Status: Former smoker Past Alcohol Use History: Abuse Past Drug Use History: None Reported - Past Family History Brother(s) Family Medical History: Deep Vein Thrombosis (DVT) General Exam Limitations: no limitations General appearance: alert, in no apparent distress Head exam: Present: atraumatic, normocephalic, normal inspection ENT exam: Present: other (No posterior pharyngeal erythema or swelling) Respiratory exam: Present: decreased breath sounds, prolonged expiratory Cardiovascular Exam: Present: regular rate, normal rhythm Neurological exam: Present: alert, oriented X3, CN II-XII intact Psychiatric exam: Present: normal affect, normal mood Skin exam: Present: warm, dry, intact, normal color. Absent: rash Course Vital Signs 11/13/24 11/13/24 17:13 19:01 Temperature 98.0 F Pulse Rate 67 62 Respiratory 17 18 Rate Blood Pressure 111/75 128/65 O2 Sat by Pulse 98 99 Oximetry Medical Decision Making - Medical Decision Making This is a 69-year-old female who presents to the emergency department for throat pain and swelling. Was pt. sent in by a medical professional or institution? @ -No Did you speak to anyone other than the patient for history? @ -No Did you review nursing and triage notes? @ -Yes, and I agree, it is accurate with regards to the patient's symptoms. Were old charts reviewed? @ -PET scan from 10/19/2024 demonstrating improvement of previously demonstrated abnormal soft tissue in the left anterior hypopharynx at the site of prior malignancy. Findings likely represent treated disease, however residual lung malignancy is not excluded. Differential Diagnosis? @ Differential Sore Throat: -Strep pharyngitis, herpes zoster, COVID, influenza, GERD, allergic rhinitis, mononucleosis, malignancy, [place], this is not meant to be an all-inclusive list. EKG interpreted by me (3pts min.)? @ -EKG interpreted by me demonstrating the following: Electronic ventricular pacemaker. Ventricular rate 66 bpm, IL interval 132 ms, QRS duration 125 ms, QTc 449 ms. X-rays interpreted by me (1pt min.)? @ -Chest x-ray obtained, my interpretation identifies no localized consolidations or infiltrates. CT interpreted by me (1pt min.)? @ -CT scan of the soft tissue neck obtained. My interpretation identifies no masses. U/S interpreted by me (1pt. min.)? @ -Not obtained What testing was considered but not performed? (CT, X-rays, U/S, labs)? Why? @ -None What meds were considered but not given? Why? @ -None Did you discuss the management of the patient with other professionals? @ -No Did you reconcile home meds? @ -No Was smoking cessation discussed for >3mins.? @ -I discussed smoking cessation for greater than 3 minutes. The risk of smoking were discussed with the patient including but not limited to risks of cancer, stroke, coronary artery disease and COPD. Also discussed with patient were multiple methods of quitting smoking. Lastly we discussed the financial cost of smoking. Was critical care preformed (if so, how long)? @ -No Were there social determinants of health that impacted care today? How? (Homelessness, low income, unemployed, alcoholism, drug addiction, tr ansportation, low edu. Level, literacy, decrease access to med. care, senior living, rehab)? @ -No Was there de-escalation of care discussed even if they declined? (Discuss DNR or withdrawal of care, Hospice)? @ -No What co-morbidities impacted this encounter? (DM, HTN, Smoking, COPD, CAD, Cancer, CVA, Hep., AIDS, mental health diagnosis, sleep apnea, morbid obesity)? @ -Smoking, hx of throat cancer, COPD, GERD Was patient admitted / discharged? @ -Discharged. Lab work demonstrates mild leukocytosis with a white blood cell count of 11.29, which could be related to recent steroid use. TSH low at 0.147, however free T4 within normal limits at 1.68. COVID, influenza, RSV, and rapid strep test negative. Chest x-ray reveals no acute process. CT scan of the soft tissue neck demonstrates focal narrowing within the distal hypopharynx just above the level of the vocal cords that is stable from prior CT study. She also has asymmetry within the hypopharynx that appears unchanged from prior comparison. Findings reviewed with the patient in that imaging at this point appears stable. Steroids administered with improvement in symptoms. States that the steroids are the only thing that seems to help with this sensation and requested we do a course of these. 5-day course of prednisone prescribed with dosing instructions reviewed. She has an appointment with Dr. Pool tomorrow and will follow-up as scheduled. Patient discharged home in stable condition. Case discussed with ED attending Dr. Solis. Return precautions reviewed in depth, the patient is instructed to return to the emergency department with any new, worsening, or concerning symptoms. Patient verbalized understanding. Undiagnosed new problem with uncertain prognosis? @ -None Drug Therapy requiring intensive monitoring for toxicity (Heparin, Nitro, Insulin, Cardizem)? @ -None Were any procedures done? @ -None Diagnosis/symptom? @ -Sensation of throat swelling Acute, or Chronic, or Acute on Chronic? @ -Acute Uncomplicated (without systemic symptoms) or Complicated (systemic symptoms)? @ -Uncomplicated Side effects of treatment? @ -None Exacerbation, Progression, or Severe Exacerbation] @ -Not applicable Poses a threat to life or bodily function? @ -No - Lab Data Result diagrams: 11/13/24 17:53 11/13/24 18:55 Lab Results 11/13/24 11/13/24 11/13/24 Range/Units 17:30 17:53 17:53 WBC 11.29 H (4.50-10.00) 10*3/uL RBC 4.54 (4.10-5.20) 10*6/uL Hgb 14.7 (12.0-15.0) g/dL Hct 42.9 (37.2-46.3) % MCV 94.5 (80.0-97.0) fL MCH 32.4 H (27.0-32.0) pg MCHC 34.3 (32.0-37.0) g/dL Plt Count 162 (140-440) 10*3/uL MPV 9.9 (9.5-12.2) fL Immature Gran % (Auto) 2.1 % Neutrophils % 90.6 % Lymphocytes % 4.1 % Monocytes % 2.9 % Eosinophils % 0.0 % Basophils % 0.3 % Immature Gran # 0.24 H (0.00-0.04) 10*3/uL Neutrophils # 10.23 H (1.80-7.70) 10*3/uL Lymphocytes # 0.46 L (0.90-5.00) 10*3/uL Monocytes # 0.33 (0.20-1.00) 10*3/uL Eosinophils # 0.00 L (0.04-0.35) 10*3/uL Basophils # 0.03 (0.00-0.10) 10*3/uL Sodium (137-145) mmol/L Potassium (3.5-5.1) mmol/L Chloride (98-107) mmol/L Carbon Dioxide (22-30) mmol/L Anion Gap mmol/L BUN (7-17) mg/dL Creatinine (0.52-1.04) mg/dL Est GFR (CKD-EPI)AfAm (>60 ml/min/1.73 sqM) Est GFR (CKD-EPI)NonAf (>60 ml/min/1.73 sqM) Glucose (74-99) mg/dL Plasma Lactic Acid Alverto 1.6 (0.7-2.0) mmol/L Calcium (8.4-10.2) mg/dL Total Bilirubin (0.2-1.3) mg/dL AST (14-36) U/L ALT (4-34) U/L Alkaline Phosphatase (38-126) U/L Troponin I (0.000-0.034) ng/mL C-Reactive Protein (<1.0) mg/dL Total Protein (6.3-8.2) g/dL Albumin (3.5-5.0) g/dL TSH (0.465-4.680) mIU/L Free T4 (0.78-2.19) ng/dL Influenza Type A (PCR) Not Detected (Not Detectd) Influenza Type B (PCR) Not Detected (Not Detectd) RSV (PCR) Not Detected (Not Detectd) SARS-CoV-2 (PCR) Not Detected (Not Detectd) Group A Strep (PCR) (Not Detectd) 11/13/24 11/13/24 11/13/24 Range/Units 17:53 17:53 18:55 WBC (4.50-10.00) 10*3/uL RBC (4.10-5.20) 10*6/uL Hgb (12.0-15.0) g/dL Hct (37.2-46.3) % MCV (80.0-97.0) fL MCH (27.0-32.0) pg MCHC (32.0-37.0) g/dL Plt Count (140-440) 10*3/uL MPV (9.5-12.2) fL Immature Gran % (Auto) % Neutrophils % % Lymphocytes % % Monocytes % % Eosinophils % % Basophils % % Immature Gran # (0.00-0.04) 10*3/uL Neutrophils # (1.80-7.70) 10*3/uL Lymphocytes # (0.90-5.00) 10*3/uL Monocytes # (0.20-1.00) 10*3/uL Eosinophils # (0.04-0.35) 10*3/uL Basophils # (0.00-0.10) 10*3/uL Sodium 136 L (137-145) mmol/L Potassium 3.9 (3.5-5.1) mmol/L Chloride 102 (98-107) mmol/L Carbon Dioxide 26 (22-30) mmol/L Anion Gap 8 mmol/L BUN 30 H (7-17) mg/dL Creatinine 0.74 (0.52-1.04) mg/dL Est GFR (CKD-EPI)AfAm >90 (>60 ml/min/1.73 sqM) Est GFR (CKD-EPI)NonAf 85 (>60 ml/min/1.73 sqM) Glucose 103 H (74-99) mg/dL Plasma Lactic Acid Alverto (0.7-2.0) mmol/L Calcium 9.4 (8.4-10.2) mg/dL Total Bilirubin 0.6 (0.2-1.3) mg/dL AST 19 (14-36) U/L ALT 17 (4-34) U/L Alkaline Phosphatase 48 (38-126) U/L Troponin I 0.013 (0.000-0.034) ng/mL C-Reactive Protein <0.5 (<1.0) mg/dL Total Protein 6.2 L (6.3-8.2) g/dL Albumin 3.7 (3.5-5.0) g/dL TSH 0.147 L (0.465-4.680) mIU/L Free T4 1.68 (0.78-2.19) ng/dL Influenza Type A (PCR) (Not Detectd) Influenza Type B (PCR) (Not Detectd) RSV (PCR) (Not Detectd) SARS-CoV-2 (PCR) (Not Detectd) Group A Strep (PCR) NOT DETECTED (Not Detectd) - Radiology Data Radiology results: report reviewed, image reviewed Disposition Clinical Impression: Sensation of swollen throat, History of pharyngeal cancer, Nicotine dependence Disposition: HOME SELF-CARE Additional Instructions: Return to the emergency department with any new, worsening, or concerning symptoms. Take the prednisone daily for 5 days. Follow-up with Dr. Pool tomorrow as scheduled. Prescriptions: predniSONE 50 mg PO DAILY 5 Days #5 tab Is patient prescribed a controlled substance at d/c from ED?: No Referrals: Tani Emmanuel MD [Primary Care Provider] - 1-2 days Time of Disposition: 20:13
[2024-11-13] MEDS: DEXAMETHASONE SOD PHOSPHATE 10 MG/ML 1 ML VIAL IVP STA (17:48)
[2024-11-13 18:05] LABS: Basophils # (A) 0.03 10*3/uL (0.00-0.10); Basophils % (A) 0.3 %; HCT 42.9 % (37.2-46.3); HGB 14.7 g/dL (12.0-15.0); Lymphocytes # (A) 0.46 10*3/uL (0.90-5.00); Lymphocytes % (A) 4.1 %; MCH 32.4 pg (27.0-32.0); MCHC 34.3 g/dL (32.0-37.0); MCV 94.5 fL (80.0-97.0); Mean Platelet Volume 9.9 fL (9.5-12.2); Monocytes # (A) 0.33 10*3/uL (0.20-1.00); Monocytes % (A) 2.9 %; Neutrophils # (A) 10.23 10*3/uL (1.80-7.70); Neutrophils % (A) 90.6 %; Platelet Count 162 10*3/uL (140-440); RBC 4.54 10*6/uL (4.10-5.20); RDW 13.8 % (11.5-14.5); WBC 11.29 10*3/uL (4.50-10.00)
[2024-11-13 18:23] LABS: Influenza A Not Detected (Not Detectd); Influenza B Not Detected (Not Detectd); RSV Not Detected (Not Detectd)
[2024-11-13 19:12] LABS: ALT 17 U/L (4-34); AST 19 U/L (14-36); African American GFR (CKD) >90 (>60 ml/min/1.73 sqM); Albumin 3.7 g/dL (3.5-5.0); Alkaline Phosphatase 48 U/L (38-126); Anion Gap 8 mmol/L; Blood Urea Nitrogen 30 mg/dL (7-17); C Reactive Protein <0.5 mg/dL (<1.0); Calcium 9.4 mg/dL (8.4-10.2); Carbon Dioxide 26 mmol/L (22-30); Chloride 102 mmol/L (98-107); Glucose 103 mg/dL (74-99); Non-African American GFR(CKD) 85 (>60 ml/min/1.73 sqM); Potassium 3.9 mmol/L (3.5-5.1); Sodium 136 mmol/L (137-145); Total Bilirubin 0.6 mg/dL (0.2-1.3); Total Protein 6.2 g/dL (6.3-8.2)
--- NOTE | 2024-11-13 19:26 | XR ---
EXAMINATION TYPE: XR chest 2V DATE OF EXAM: 11/13/2024 7:13 PM COMPARISON: 10/08/2024 CLINICAL INDICATION: Female, 69 years old with history of Cough, dyspnea, TECHNIQUE: XR chest 2V view(s) obtained. FINDINGS: The heart size is normal. Pacemaker overlies left chest The pulmonary vasculature is normal. The lungs are clear. IMPRESSION: 1. No acute pulmonary process. [facility], Workstation: [facility], 11/13/2024 7:24 PM
--- NOTE | 2024-11-13 20:06 | CT ---
EXAMINATION TYPE: CT soft tissue neck w con DATE OF EXAM: 11/13/2024 7:33 PM COMPARISON: 10/08/2024, PET CT 10/19/2024 CLINICAL INDICATION: Female, 69 years old with history of Neck pain/swelling, hx of throat cancer, Pt is coming in for TRUDI, pt has throat cancer. states her throat feels swollen TECHNIQUE: Axial images at 3 mm thick sections. Reconstructed images in the coronal plane and sagitt al plane are reviewed. Contrast used:100 mL of Isovue 300 with IV Contrast, (none if empty) Oral contrast used: (none if empty) CT DLP: 191.2 mGycm, Automated exposure control for dose reduction was used. FINDINGS: Limited CT sections are obtained the lung apices. The lung apices appear clear. CT neck: The torus tubarius and fossa of Rosenmuller are normal. Blade Grader Operator spaces are normal. Para nasal sinuses and mastoid air cells visualized are clear. Parotid glands appear normal and symmetrical. Submandibular glands, are normal. Parapharyngeal spac es are normal. No suspicious adenopathy is evident. Hypopharynx is patent. There is some asymmetry with some greater fullness on the left central anterio r regions compared to the right. This could be related to the patient's known throat cancer. The narr owing previously identified appears unchanged. This currently measures 0.[address] measureme nt was 0.30 cm. These measurements appear more narrow than the PET/CT. Vocal cord level appear symmetrical. Thyroid appears severely atrophic Osseous structures are normal. IMPRESSION: 1. Focal narrowing within the distal hypopharynx just above the level of cords is stable from prior C T study. 2. Asymmetry within the hypopharynx appears unchanged from comparison [facility], Workstation: [facility], 11/13/2024 8:04 PM
[2024-11-13 20:08] LABS: T4, Free (Free Thyroxine) 1.68 ng/dL (0.78-2.19)
[2024-11-13 20:30] VITALS: BP 116/89; PULSE 60; RESP 17
== END 2024-11-13 20:31 | disposition home or self-care (01) ==
LOC: EC 17:09
DX: J02.9 Acute pharyngitis, unspecified (principal); F17.200 Nicotine dependence, unspecified, uncomplicated; Z85.819 Personal history of malignant neoplasm of unspecified site of lip, oral cavity, and pharynx; J44.9 Chronic obstructive pulmonary disease, unspecified; K21.9 Gastro-esophageal reflux disease without esophagitis; Z88.8 Allergy status to other drugs, medicaments and biological substances
CPT/HCPCS: 36415; 87651; 84439; 80053; 84443; 83605; 84484; 85025; 86140; 87636; 71046; 70491; 99284; 99406; 96374; J1100; Q9967

== ENCOUNTER 2024-11-20 15:04 | Emergency (ER) | payer MEDICARE, OTHER ==
[2024-11-20 15:07] VITALS: BP 132/73; RESP 18; TEMP 97.7
[2024-11-20] MEDS: IPRATROPIUM-ALBUTEROL 3 ML NEB INHALATION STA (16:46)
[2024-11-20 16:57] VITALS: PULSE 63
[2024-11-20 17:58] LABS: Influenza A Not Detected (Not Detectd); Influenza B Not Detected (Not Detectd); RSV Not Detected (Not Detectd)
--- NOTE | 2024-11-20 18:51 | XR ---
EXAMINATION TYPE: XR chest 2V DATE OF EXAM: 11/20/2024 6:40 PM COMPARISON: 11/13/2024 CLINICAL INDICATION: Female, 69 years old with history of chest congestion; [facility] TECHNIQUE: XR chest 2V Frontal and lateral views of the chest. FINDINGS: Lungs/Pleura: There is no evidence of pleural effusion, focal consolidation, or pneumothorax. Pulmonary vascularity: Unremarkable. Heart/mediastinum: Cardiomediastinal silhouette is unremarkable. Three lead cardiac conduction device overlying the left hemithorax with lead tips projecting over the right ventricle, right atrium and c oronary sinus. Musculoskeletal: No acute osseous pathology. Other findings: None IMPRESSION: No acute cardiopulmonary disease/process. [facility], , 11/20/2024 6:49 PM
--- NOTE | 2024-11-20 18:54 | ED ---
ENT HPI - General Chief complaint: ENT Stated complaint: Sore throat Time Seen by Provider: 11/20/24 16:00 Source: patient, RN notes reviewed Mode of arrival: ambulatory Limitations: no limitations - History of Present Illness Initial comments: 69-year-old female presenting for throat hoarseness x 1 day. States she has been dealing with throat pain/congestion over the past couple of weeks. This is her third visit to the ER for this complaint. She has underwent CT of the neck which revealed no acute changes as well as multiple negative viral swabs and chest x-rays. She was seen by her PCP Dr. Emmanuel this morning who gave her a steroid injection and oral steroids. States the steroid did not help as much as it usually does so she decided to come to the ER for further evaluation. Denies chest pain, shortness of breath, lip or tongue swelling. No difficulty breathing or swallowing. - Related Data Home Medications Medication Instructions Recorded Confirmed Albuterol Inhaler [Ventolin Hfa 2 puff INHALATION RT-QID PRN 02/10/18 10/09/24 Inhaler] ALPRAZolam [Xanax] 1 mg PO TID PRN 09/29/23 10/09/24 PARoxetine [Paxil] 20 mg PO DAILY 09/30/23 10/09/24 Fluticasone/Umeclidin/Vilanter 1 puff INHALATION RT-DAILY 03/23/24 10/09/24 [Trelegy Ellipta 100-62.5-25] Famotidine 20 mg PO DAILY 05/16/24 10/09/24 HYDROcodone/APAP 5-325MG [[place] 1 tab PO TID PRN 05/16/24 10/09/24 5-325] amLODIPine [Norvasc] 2.5 mg PO DAILY 05/16/24 10/09/24 Atorvastatin [Lipitor] 80 mg PO DAILY 10/09/24 10/09/24 Betamethasone Dipropionate 1 applic TOPICAL BID PRN 10/09/24 10/09/24 [Diprolene 0.05% Ointment] Budesonide/Glycopyr/Formoterol 2 puff INHALATION RT-BID 10/09/24 10/09/24 [Breztri Aerosphere Inhaler] Clotrimazole Cream [Lotrimin Cream] 1 applic TOPICAL BID PRN 10/09/24 10/09/24 Furosemide [Lasix] 20 mg PO BID 10/09/24 10/09/24 Hydrocortisone Cream 1 applic TOPICAL QID PRN 10/09/24 10/09/24 [Hydrocortisone 2.5% Cream] Levothyroxine Sodium [Synthroid] 88 mcg PO DAILY 10/09/24 10/09/24 Nystatin 100,000 Unit/gm Powd 1 applic TOPICAL QID PRN 10/09/24 10/09/24 [Mycostatin Powder] Omeprazole [PriLOSEC] 20 mg PO DAILY 10/09/24 10/09/24 Triamcinolone 0.1% Cream [Kenalog 1 applicatio TOPICAL BID PRN 10/09/24 10/09/24 0.1% Cream] carvediloL [Coreg] 6.25 mg PO BID 10/09/24 10/09/24 hydrOXYzine HCL [Atarax] 25 mg PO TID PRN 10/09/24 10/09/24 Previous Rx's Medication Instructions Recorded predniSONE [Deltasone] 40 mg PO DAILY #10 tab 11/08/24 predniSONE 50 mg PO DAILY 5 Days #5 tab 11/13/24 Allergies Allergy/AdvReac Type Severity Reaction Status Date / Time elastic Allergy Rash/Hives Uncoded 11/20/24 15:07 Review of Systems ROS Statement: Those systems with pertinent positive or pertinent negative responses have been documented in the HPI. ROS Other: All systems not noted in ROS Statement are negative. Past Medical History Past Medical History: Cancer, COPD, GERD/Reflux, Hypertension, Rheumatoid Arthritis (RA), Sleep Apnea/CPAP/BIPAP, Thyroid Disorder, Vascular Disorder Additional Past Medical History / Comment(s): USES CPAP MACHINE and O2 at 2L at night as well. STATES HX OF STOMACH ULCERS. Current "rash on right foot from flip flops". PAD. History of Any Multi-Drug Resistant Organisms: None Reported Past Surgical History: AICD, Heart Catheterization, Pacemaker Additional Past Surgical History / Comment(s): Defibrillator, bilateral cateract surgery, battery change on AICD/Pacemaker 10/2023. Past Anesthesia/Blood Transfusion Reactions: No Reported Reaction, Motion Sickness Type of Cardiac Device: AICD Device Placement Date:: 2012 Past Psychological History: Anxiety, Depression Smoking Status: Former smoker Past Alcohol Use History: Abuse Past Drug Use History: None Reported - Past Family History Brother(s) Family Medical History: Deep Vein Thrombosis (DVT) General Exam Limitations: no limitations General appearance: alert, in no apparent distress Head exam: Present: atraumatic, normocephalic, normal inspection Eye exam: Present: normal appearance, PERRL, EOMI. Absent: scleral icterus, conjunctival injection, periorbital swelling ENT exam: Present: normal exam, normal oropharynx, mucous membranes moist Neck exam: Present: normal inspection. Absent: tenderness, meningismus, lymphadenopathy Respiratory exam: Present: normal lung sounds bilaterally. Absent: respiratory distress, wheezes, rales, rhonchi, stridor Cardiovascular Exam: Present: regular rate, normal rhythm, normal heart sounds. Absent: systolic murmur, diastolic murmur, rubs, gallop, clicks Neurological exam: Present: alert, oriented X3 Psychiatric exam: Present: normal affect, normal mood Skin exam: Present: warm, dry, intact, normal color. Absent: rash Course Vital Signs 11/20/24 11/20/24 11/20/24 15:04 16:46 16:56 Temperature 97.7 F Pulse Rate 62 59 L 63 Respiratory 18 Rate Blood Pressure 132/73 O2 Sat by Pulse 99 Oximetry Medical Decision Making - Medical Decision Making Was pt. sent in by a medical professional or institution ([facility], [employer], urgent care, hospital, or retirement...) When possible be specific @ -No Did you speak to anyone other than the patient for history (EMS, parent, family, police, friend...)? What history was obtained from this source @ -No Did you review nursing and triage notes (agree or disagree)? Why? @ -I reviewed and agree with nursing and triage notes Were old charts reviewed (outside hosp., previous admission, EMS record, old EKG, old radiological studies, urgent care reports/EKG's, retirement records)? Report findings @ -Reviewed previous ER notes including CT scanning soft tissue of the neck which revealed focal narrowing within the distal hypopharynx stable from prior Differential Diagnosis (chest pain, altered mental status, abdominal pain women, abdominal pain men, vaginal bleeding, weakness, fever, dyspnea, syncope, headache, dizziness, GI bleed, back pain, seizure, CVA, palpatations, mental health, musculoskeletal)? @ -Viral pharyngitis, strep pharyngitis, COVID-19, influenza, RSV, pneumonia, bronchitis EKG interpreted by me (3pts min.). @ -None X-rays interpreted by me (1pt min.). @ -Chest x-ray revealed no acute process CT interpreted by me (1pt min.). @ -None done U/S interpreted by me (1pt. min.). @ -None done What testing was considered but not performed or refused? (CT, X-rays, U/S, labs)? Why? @ -None What meds were considered but not given or refused? Why? @ -None Did you discuss the management of the patient with other professionals (professionals i.e. , PA, [employer], lab, RT, psych nurse, health care social worker, assistant professor of physics, teacher, sales and service officer, supportive employment case manager)? Give summary @ -No Was smoking cessation discussed for >3mins.? @ -No Was critical care preformed (if so, how long)? @ -No Were there social determinants of health that impacted care today? How? (Homelessness, low income, unemployed, alcoholism, drug addiction, transportation, low edu. Level, literacy, decrease access to med. care, intermediate, rehab)? @ -No Was there de-escalation of care discussed even if they declined (Discuss DNR or withdrawal of care, Hospice)? DNR status @ -No What co-morbidities impacted this encounter? (DM, HTN, Smoking, COPD, CAD, Cancer, CVA, ARF, Chemo, Hep., AIDS, mental health diagnosis, sleep apnea, morbid obesity)? @ -None Was patient admitted / discharged? Hospital course, mention meds given and route, prescriptions, significant lab abnormalities, going to OR and other pertinent info. @ -Discharge. 69-year-old female presenting for throat hoarseness x 1 day. No red flag symptoms. No difficulty breathing or swallowing. Patient is well- appearing, no acute distress. Patient was provided with DuoNeb per patient request. Strep, COVID-19, influenza, RSV negative. Chest x-ray revealed no acute process. Upon reevaluation, patient reports mild improvement of symptoms. I do not identify emergent etiology causing symptoms today. Discussed importance of following up with PCP for upcoming appointment tomorrow. Appropriate return precautions and follow-up/supportive care discussed. Case was discussed with my ED attending Dr. Richey. Undiagnosed new problem with uncertain prognosis? @ -No Drug Therapy requiring intensive monitoring for toxicity (Heparin, Nitro, Insulin, Cardizem)? @ -No Were any procedures done? @ -No Diagnosis/symptom? @ -Pharyngitis Acute, or Chronic, or Acute on Chronic? @ -Acute Uncomplicated (without systemic symptoms) or Complicated (systemic symptoms)? @ -Uncomplicated Side effects of treatment? @ -No Exacerbation, Progression, or Severe Exacerbation? @ -No Poses a threat to life or bodily function? How? (Chest pain, [place], [place], pneumonia, PE, COPD, DKA, ARF, appy, cholecystitis, CVA, Diverticulitis, Homicidal, Suicidal, threat to staff... and all critical care pts) @ -No - Lab Data Lab Results 11/20/24 11/20/24 Range/Units 17:07 17:07 Influenza Type A (PCR) Not Detected (Not Detectd) Influenza Type B (PCR) Not Detected (Not Detectd) RSV (PCR) Not Detected (Not Detectd) SARS-CoV-2 (PCR) Not Detected (Not Detectd) Group A Strep (PCR) NOT DETECTED (Not Detectd) Disposition Clinical Impression: Pharyngitis Disposition: HOME SELF-CARE Condition: Stable Instructions (If sedation given, give patient instructions): Pharyngitis (ED) Additional Instructions: Follow-up with your PCP tomorrow. Please return to the Emergency Department if symptoms worsen or any other concerns. Is patient prescribed a controlled substance at d/c from ED?: No Referrals: Tani Emmanuel MD [Primary Care Provider] - 1-2 days Time of Disposition: 18:53
== END 2024-11-20 18:59 | disposition home or self-care (01) ==
LOC: EC 15:04
DX: J02.9 Acute pharyngitis, unspecified (principal); Z87.891 Personal history of nicotine dependence; Z88.8 Allergy status to other drugs, medicaments and biological substances
CPT/HCPCS: 71046; 87636; 87651; 94640; 99283

== ENCOUNTER 2024-11-22 12:20 | Emergency (ER) | payer MEDICARE, OTHER ==
--- NOTE | 2024-11-22 12:57 | ED ---
General Adult HPI - General Chief complaint: ENT Stated complaint: sore throat Time Seen by Provider: 11/22/24 12:33 Source: patient Mode of arrival: ambulatory Limitations: no limitations - History of Present Illness Initial comments: Dictation was produced using [employer] dictation software. please excuse any grammatical, word or spelling errors. Chief Complaint: 69-year-old female history of upper airway cancer presents to the ER for concerns of sensation of her throat closing History of Present Illness: Patient 69-year-old female she has known history of upper airway tumor. She is currently being managed by ENT and oncology. Patient states she woke up this morning felt like her throat was closing. She does have a history of throat cancer. Patient able to tolerate her secretions. No shortness of breath. Patient denies any swallowing difficulties. She does have an appointment with ENT for next month. She has not tried to call and move her appointment up. Currently on steroid therapy.Patient states this is her 7th or 8th to the emergency department visit in the last couple weeks for the same issue. The ROS documented in this emergency department record has been reviewed and confirmed by me. Those systems with pertinent positive or negative responses have been documented in the HPI. All other systems are other negative and/or noncontributory. - Related Data Home Medications Medication Instructions Recorded Confirmed Albuterol Inhaler [Ventolin Hfa 2 puff INHALATION RT-QID PRN 02/10/18 10/09/24 Inhaler] ALPRAZolam [Xanax] 1 mg PO TID PRN 09/29/23 10/09/24 PARoxetine [Paxil] 20 mg PO DAILY 09/30/23 10/09/24 Fluticasone/Umeclidin/Vilanter 1 puff INHALATION RT-DAILY 03/23/24 10/09/24 [Trelegy Ellipta 100-62.5-25] Famotidine 20 mg PO DAILY 05/16/24 10/09/24 HYDROcodone/APAP 5-325MG [[place] 1 tab PO TID PRN 05/16/24 10/09/24 5-325] amLODIPine [Norvasc] 2.5 mg PO DAILY 05/16/24 10/09/24 Atorvastatin [Lipitor] 80 mg PO DAILY 10/09/24 10/09/24 Betamethasone Dipropionate 1 applic TOPICAL BID PRN 10/09/24 10/09/24 [Diprolene 0.05% Ointment] Budesonide/Glycopyr/Formoterol 2 puff INHALATION RT-BID 10/09/24 10/09/24 [Breztri Aerosphere Inhaler] Clotrimazole Cream [Lotrimin Cream] 1 applic TOPICAL BID PRN 10/09/24 10/09/24 Furosemide [Lasix] 20 mg PO BID 10/09/24 10/09/24 Hydrocortisone Cream 1 applic TOPICAL QID PRN 10/09/24 10/09/24 [Hydrocortisone 2.5% Cream] Levothyroxine Sodium [Synthroid] 88 mcg PO DAILY 10/09/24 10/09/24 Nystatin 100,000 Unit/gm Powd 1 applic TOPICAL QID PRN 10/09/24 10/09/24 [Mycostatin Powder] Omeprazole [PriLOSEC] 20 mg PO DAILY 10/09/24 10/09/24 Triamcinolone 0.1% Cream [Kenalog 1 applicatio TOPICAL BID PRN 10/09/24 10/09/24 0.1% Cream] carvediloL [Coreg] 6.25 mg PO BID 10/09/24 10/09/24 hydrOXYzine HCL [Atarax] 25 mg PO TID PRN 10/09/24 10/09/24 Previous Rx's Medication Instructions Recorded predniSONE [Deltasone] 40 mg PO DAILY #10 tab 11/08/24 predniSONE 50 mg PO DAILY 5 Days #5 tab 11/13/24 Allergies Allergy/AdvReac Type Severity Reaction Status Date / Time elastic Allergy Rash/Hives Uncoded 11/22/24 12:24 Review of Systems ROS Statement: Those systems with pertinent positive or pertinent negative responses have been documented in the HPI. ROS Other: All systems not noted in ROS Statement are negative. Past Medical History Past Medical History: Cancer, COPD, GERD/Reflux, Hypertension, Rheumatoid Arthritis (RA), Sleep Apnea/CPAP/BIPAP, Thyroid Disorder, Vascular Disorder Additional Past Medical History / Comment(s): USES CPAP MACHINE and O2 at 2L at night as well. STATES HX OF STOMACH ULCERS. Current "rash on right foot from flip flops". PAD. History of Any Multi-Drug Resistant Organisms: None Reported Past Surgical History: AICD, Heart Catheterization, Pacemaker Additional Past Surgical History / Comment(s): Defibrillator, bilateral cateract surgery, battery change on AICD/Pacemaker 10/2023. Past Anesthesia/Blood Transfusion Reactions: No Reported Reaction, Motion Sickness Type of Cardiac Device: AICD Device Placement Date:: 2012 Past Psychological History: Anxiety, Depression Smoking Status: Current some day smoker Past Alcohol Use History: Abuse Past Drug Use History: None Reported - Past Family History Brother(s) Family Medical History: Deep Vein Thrombosis (DVT) General Exam - General Exam Comments Initial Comments: General: Well-appearing, nontoxic, no acute distress. Head: Normocephalic, atraumatic Eyes: PERRLA, EOMI ENT: Airway patent Chest: Nonlabored breathing Skin: No visual rash, normal skin tone Neuro: Alert and oriented 3 Musculoskeletal: No gross abnormalities Limitations: no limitations Course Vital Signs 11/22/24 12:22 Temperature 98 F Pulse Rate 60 Respiratory 20 Rate Blood Pressure 133/94 O2 Sat by Pulse 98 Oximetry Medical Decision Making - Medical Decision Making Was pt. sent in by a medical professional or institution (Dr. PA, [employer] C[employer] DRILL OPERATOR HELPER, urgent care, hospital, or fdc...) When possible be specific @ -No Did you speak to anyone other than the patient for history (EMS, parent, family, police, friend...)? What history was obtained from this source @ -No Did you review nursing and triage notes (agree or disagree)? Why? @ -I reviewed and agree with nursing and triage notes Were old charts reviewed (outside hosp., previous admission, EMS record, old EKG, old radiological studies, urgent care reports/EKG's, fdc records)? Report findings @ -No old charts were reviewed Differential Diagnosis (chest pain, altered mental status, abdominal pain women, abdominal pain men, vaginal bleeding, musculoskeletal, weakness, fever, dyspnea, syncope, headache, dizziness, GI bleed, back pain, seizure, CVA, palpatations, mental health)? @ -Differential Dyspnea: Coronary syndrome, arrhythmia, tamponade, asthma, COPD, pulmonary embolism, pneumonia, pneumothorax, pulmonary effusion, anaphylaxis, diabetic ketoacidosis, flailed chest, pulmonary contusion, diaphragmatic rupture, anemia, neuromuscular, this is not meant to be an all-inclusive list. EKG interpreted by me (3pts min.). @ -None done X-rays interpreted by me (1pt min.). @ -None done CT interpreted by me (1pt min.). @ -None done U/S interpreted by me (1pt. min.). @ -None done What testing was considered but not performed or refused? (CT, X-rays, U/S, labs)? Why? @ -None What meds were considered but not given or refused? Why? @ -None Was smoking cessation discussed for >3mins.? @ -No Were there social determinants of health that impacted care today? How? (Homelessness, low income, unemployed, alcoholism, drug addiction, transportation, low edu. Level, literacy, decrease access to med. care, correction, rehab)? @ -No Was there de-escalation of care discussed even if they declined (Discuss DNR or withdrawal of care, Hospice)? DNR status @ -No What co-morbidities impacted this encounter? (DM, HTN, Smoking, COPD, CAD, Cancer, CVA, ARF, Chemo, Hep., AIDS, mental health diagnosis, sleep apnea, morbid obesity)? @ -None Was patient admitted / discharged? Hospital course, mention meds given and route, prescriptions, significant lab abnormalities, going to OR and other pertinent info. @ -69-year-old female with known history of throat cancer presents to the emergency department for sensation of throat closing. Vital signs stable. Physical examination is benign. Patient well-appearing at the bedside. No acute distress. Patient tolerating liquids. Patient unsure if she needs another CT scan. Patient states she has had 3 [address] scans within the last 10 days. Discussed risk and benefits of radiation exposure. She is well-appearing. She is offered CT however is able to tolerate oral intake. She is in no acute distress. Patient states she would like to be discharged. She told to follow- up closely with ENT. Patient given return precautions. Did you discuss the management of the patient with other professionals (professionals i.e. , PA, SHOT CORE DRILL OPERATOR HELPER, lab, RT, psych nurse, transition social worker, nitrator operator, teacher, drug abuse resistance education officer, social work case manager)? Give summary @ -No Was critical care preformed (if so, how long)? @ -No Undiagnosed new problem with uncertain prognosis? @ -No Drug Therapy requiring intensive monitoring for toxicity (Heparin, Nitro, Insulin, Cardizem)? @ -No Were any procedures done? @ -No Diagnosis/symptom? Acute, or Chronic, or Acute on Chronic? Uncomplicated (without systemic symptoms) or Complicated (systemic symptoms)? @ -Throat cancer Side effects of treatment? @ -No Exacerbation, Progression, or Severe Exacerbation? @ -No Poses a threat to life or bodily function? How? (Chest pain, [place], [place], pneumonia, PE, COPD, DKA, ARF, appy, cholecystitis, CVA, Diverticulitis, Homicidal, Suicidal, threat to staff... and all critical care pts) @ -No Disposition Clinical Impression: Throat cancer Disposition: HOME SELF-CARE Condition: Good Instructions (If sedation given, give patient instructions): Dyspnea (ED) Is patient prescribed a controlled substance at d/c from ED?: No Referrals: Tani Emmanuel MD [Primary Care Provider] - 1-2 days Time of Disposition: 12:56
[2024-11-22 13:33] VITALS: BP 138/68; PULSE 68; RESP 16; TEMP 98.2
== END 2024-11-22 13:15 | disposition home or self-care (01) ==
LOC: EC 12:20
DX: C14.0 Malignant neoplasm of pharynx, unspecified (principal); F17.200 Nicotine dependence, unspecified, uncomplicated; Z91.09 Other allergy status, other than to drugs and biological substances
CPT/HCPCS: 99282

== ENCOUNTER 2024-12-16 14:08 | Observation (INO) | payer MEDICARE, OTHER ==
--- NOTE | 2024-12-16 14:49 | ED ---
SOB HPI - General Chief Complaint: Shortness of Breath Stated Complaint: SOB Time Seen by Provider: 12/16/24 14:23 Source: patient, EMS, RN notes reviewed Mode of arrival: EMS Limitations: no limitations - History of Present Illness Initial Comments: This is a 69-year-old female who presents to the emergency department for shortness of breath and weakness. Patient states that the shortness of breath has been ongoing for the last several weeks, however over the last couple of days it has gotten much worse. States that she feels like she is not getting any air and is having problems with her throat. She does have a history of throat cancer and is not currently on any treatment and she is unclear what the status of it is. She is starting to feel very weak and states that her is having to carry her around. She is unsure if it is due to the ongoing steroid use. She is also unsure if the breathing issues are related to the throat. She does have a history of COPD and is using her inhalers without much of any relief. States that her heart feels "weird" but is unsure if she is having chest pain. MD Complaint: shortness of breath - Related Data Home Medications Medication Instructions Recorded Confirmed Albuterol Inhaler [Ventolin Hfa 2 puff INHALATION RT-QID PRN 02/10/18 12/16/24 Inhaler] PARoxetine [Paxil] 20 mg PO DAILY 09/30/23 12/16/24 Fluticasone/Umeclidin/Vilanter 1 puff INHALATION RT-DAILY 03/23/24 12/16/24 [Trelegy Ellipta 100-62.5-25] Famotidine 20 mg PO DAILY 05/16/24 12/16/24 amLODIPine [Norvasc] 2.5 mg PO DAILY 05/16/24 12/16/24 Atorvastatin [Lipitor] 80 mg PO DAILY 10/09/24 12/16/24 Levothyroxine Sodium [Synthroid] 88 mcg PO DAILY 10/09/24 12/16/24 carvediloL [Coreg] 6.25 mg PO BID 10/09/24 12/16/24 ALPRAZolam [Xanax] 2 mg PO TID PRN 12/16/24 12/16/24 predniSONE 10 mg PO HS 12/16/24 12/16/24 predniSONE [Deltasone] 40 mg PO DAILY 12/16/24 12/16/24 Previous Rx's Medication Instructions Recorded Furosemide [Lasix] 40 mg PO BID #60 tab 12/02/24 Allergies Allergy/AdvReac Type Severity Reaction Status Date / Time elastic Allergy Rash/Hives Uncoded 12/16/24 14:14 Review of Systems ROS Statement: Those systems with pertinent positive or pertinent negative responses have been documented in the HPI. ROS Other: All systems not noted in ROS Statement are negative. Past Medical History Past Medical History: Cancer, COPD, GERD/Reflux, Hypertension, Rheumatoid Arthritis (RA), Sleep Apnea/CPAP/BIPAP, Thyroid Disorder, Vascular Disorder Additional Past Medical History / Comment(s): USES CPAP MACHINE and O2 at 2L at night as well. STATES HX OF STOMACH ULCERS. Current "rash on right foot from flip flops". PAD. History of Any Multi-Drug Resistant Organisms: None Reported Past Surgical History: AICD, Heart Catheterization, Pacemaker Additional Past Surgical History / Comment(s): Defibrillator, bilateral cateract surgery, battery change on AICD/Pacemaker 10/2023. Past Anesthesia/Blood Transfusion Reactions: No Reported Reaction, Motion Sickness Type of Cardiac Device: AICD Device Placement Date:: 2012 Past Psychological History: Anxiety, Depression Smoking Status: Former smoker Past Alcohol Use History: None Reported Past Drug Use History: None Reported - Past Family History Brother(s) Family Medical History: Deep Vein Thrombosis (DVT) General Exam Limitations: no limitations General appearance: alert, in no apparent distress Head exam: Present: atraumatic, normocephalic, normal inspection Respiratory exam: Present: decreased breath sounds, prolonged expiratory Cardiovascular Exam: Present: regular rate, normal rhythm Neurological exam: Present: alert, oriented X3, CN II-XII intact Psychiatric exam: Present: normal affect, normal mood Skin exam: Present: warm, dry, intact, normal color. Absent: rash Course Vital Signs 12/16/24 12/16/24 12/16/24 14:09 15:24 15:42 Temperature 98.4 F Pulse Rate 70 64 67 Respiratory 20 22 18 Rate Blood Pressure 149/104 144/100 O2 Sat by Pulse 100 98 Oximetry 12/16/24 12/16/24 12/16/24 15:46 17:03 18:15 Temperature Pulse Rate 64 86 60 Respiratory 18 20 16 Rate Blood Pressure 156/86 158/93 O2 Sat by Pulse 100 99 Oximetry 12/16/24 12/16/24 12/16/24 19:54 20:00 20:40 Temperature Pulse Rate 63 69 94 Respiratory 17 Rate Blood Pressure 138/79 O2 Sat by Pulse 99 Oximetry Medical Decision Making - Medical Decision Making This is a 69-year-old female who presents to the emergency department for shortness of breath. Was pt. sent in by a medical professional or institution? @ -No Did you speak to anyone other than the patient for history? @ -No Did you review nursing and triage notes? @ -Yes, and I agree, it is accurate with regards to the patient's symptoms. Were old charts reviewed? @ -No Differential Diagnosis? @ -Differential Dyspnea: Coronary syndrome, arrhythmia, tamponade, asthma, COPD, pulmonary embolism, pneumonia, pneumothorax, pulmonary effusion, anaphylaxis, diabetic ketoacidosis, flailed chest, pulmonary contusion, diaphragmatic rupture, anemia, neuromuscular, this is not meant to be an all-inclusive list. EKG interpreted by me (3pts min.)? @ -EKG interpreted by me demonstrating the following: Electronic ventricular pacemaker. Ventricular rate 69 bpm, CA interval 126 ms, QRS duration 126 ms, QTc 496 ms. X-rays interpreted by me (1pt min.)? @ -Not obtained CT interpreted by me (1pt min.)? @ -CT scan of the soft tissue neck obtained. My interpretation identifies a patent airway. CTA of the chest obtained. My interpretation identifies no evidence of a pulmonary embolus. U/S interpreted by me (1pt. min.)? @ -Not obtained What testing was considered but not performed? (CT, X-rays, U/S, labs)? Why? @ -None What meds were considered but not given? Why? @ -None Did you discuss the management of the patient with other professionals? @ -Yes, Dr. Emmanuel, who accepts the patient for admission. Did you reconcile home meds? @ -Yes - Xanax had to be reordered manually due to it being nonformulary Was smoking cessation discussed for >3mins.? @ -I discussed smoking cessation for greater than 3 minutes. The risk of smoking were discussed with the patient including but not limited to risks of cancer, stroke, coronary artery disease and COPD. Also discussed with patient were multiple methods of quitting smoking. Lastly we discussed the financial cost of smoking. Was critical care preformed (if so, how long)? @ -Yes, >35 minutes Were there social determinants of health that impacted care today? How? (Homelessness, low income, unemployed, alcoholism, drug addiction, transportation, low edu. Level, literacy, decrease access to med. care, snf, rehab)? @ -No Was there de-escalation of care discussed even if they declined? (Discuss DNR or withdrawal of care, Hospice)? @ -No What co-morbidities impacted this encounter? (DM, HTN, Smoking, COPD, CAD, Cancer, CVA, Hep., AIDS, mental health diagnosis, sleep apnea, morbid obesity)? @ -COPD, anxiety, cancer, GERD, smoking Was patient admitted / discharged? @ -Admitted. Lab work demonstrates hypokalemia with a potassium of 2.9. Lactic acid mildly elevated 2.1. BNP 1230 and troponin slightly elevated at 0.064. D-dimer elevated at 1.04. Patient was unable to tolerate any sort of oral intake to replace her potassium in both the pill and effervescent form and was instead just given 20 mEq of IVPB potassium chloride. CT scan of the soft tissue neck demonstrates nonspecific heterogeneous edematous appearance of the remainder of the mouth which may involve the hard palate and/or upper portion of the tongue. She also has asymmetric soft tissue fullness in the anterior hypopharynx consistent with history of throat cancer and is similar to prior C Ts. Airway is otherwise patent. CTA of the chest reveals no evidence of a pulmonary embolus. Patient has been dealing with recurrent problems related to shortness of breath and feelings of throat tightness, further exacerbated by her anxiety. However, given that she feels like she has a strange sensation in her chest, is increasingly fatigued, and now has an elevated troponin, she was admitted to medicine for an NSTEMI and started on heparin. Consult placed for cardiology. Serial troponins ordered. Of note, due to her difficulty with swallowing and feeling of constantly choking, speech therapy was consulted. Case discussed with ED attending Dr. Tian. Undiagnosed new problem with uncertain prognosis? @ -None Drug Therapy requiring intensive monitoring for toxicity (Heparin, Nitro, Insulin, Cardizem)? @ -Heparin Were any procedures done? @ -None Diagnosis/symptom? @ -NSTEMI, dyspnea Acute, or Chronic, or Acute on Chronic? @ -Acute Uncomplicated (without systemic symptoms) or Complicated (systemic symptoms)? @ -Complicated Side effects of treatment? @ -None Exacerbation, Progression, or Severe Exacerbation] @ -Not applicable Poses a threat to life or bodily function? @ -Yes - Lab Data Result diagrams: 12/16/24 15:04 12/16/24 14:51 Lab Results 12/16/24 12/16/24 12/16/24 Range/Units 14:51 15:04 15:04 WBC 9.97 (4.50-10.00) 10*3/uL RBC 4.84 (4.10-5.20) 10*6/uL Hgb 15.3 H (12.0-15.0) g/dL Hct 43.2 (37.2-46.3) % MCV 89.3 (80.0-97.0) fL MCH 31.6 (27.0-32.0) pg MCHC 35.4 (32.0-37.0) g/dL Plt Count 108 L (140-440) 10*3/uL MPV 10.1 (9.5-12.2) fL Immature Gran % (Auto) 1.7 % Neutrophils % 93.5 % Lymphocytes % 2.0 % Monocytes % 2.6 % Eosinophils % 0.0 % Basophils % 0.2 % Immature Gran # 0.17 H (0.00-0.04) 10*3/uL Neutrophils # 9.32 H (1.80-7.70) 10*3/uL Lymphocytes # 0.20 L (0.90-5.00) 10*3/uL Monocytes # 0.26 (0.20-1.00) 10*3/uL Eosinophils # 0.00 L (0.04-0.35) 10*3/uL Basophils # 0.02 (0.00-0.10) 10*3/uL Immature Plt Fraction 2.3 (1.1-6.1) % PT 10.9 (10.0-12.5) sec INR 1.0 (<1.2) APTT 20.1 L (22.0-30.0) sec D-Dimer (<0.60) mg/L FEU Sodium 136 L (137-145) mmol/L Potassium 2.9 L (3.5-5.1) mmol/L Chloride 105 (98-107) mmol/L Carbon Dioxide 22 (22-30) mmol/L Anion Gap 9 mmol/L BUN 21 H (7-17) mg/dL Creatinine 0.60 (0.52-1.04) mg/dL Est GFR (CKD-EPI)AfAm >90 (>60 ml/min/1.73 sqM) Est GFR (CKD-EPI)NonAf >90 (>60 ml/min/1.73 sqM) Glucose 132 H (74-99) mg/dL Lactic Ac Sepsis Rflx Plasma Lactic Acid Alverto (0.7-2.0) mmol/L Calcium 8.2 L (8.4-10.2) mg/dL Magnesium 1.8 (1.6-2.3) mg/dL Total Bilirubin 1.4 H (0.2-1.3) mg/dL AST 20 (14-36) U/L ALT 25 (4-34) U/L Alkaline Phosphatase 54 (38-126) U/L Troponin I (0.000-0.034) ng/mL NT-Pro-B Natriuret Pep 1230 pg/mL Total Protein 5.4 L (6.3-8.2) g/dL Albumin 3.2 L (3.5-5.0) g/dL 12/16/24 12/16/24 12/16/24 Range/Units 15:04 15:04 15:04 WBC (4.50-10.00) 10*3/uL RBC (4.10-5.20) 10*6/uL Hgb (12.0-15.0) g/dL Hct (37.2-46.3) % MCV (80.0-97.0) fL MCH (27.0-32.0) pg MCHC (32.0-37.0) g/dL Plt Count (140-440) 10*3/uL MPV (9.5-12.2) fL Immature Gran % (Auto) % Neutrophils % % Lymphocytes % % Monocytes % % Eosinophils % % Basophils % % Immature Gran # (0.00-0.04) 10*3/uL Neutrophils # (1.80-7.70) 10*3/uL Lymphocytes # (0.90-5.00) 10*3/uL Monocytes # (0.20-1.00) 10*3/uL Eosinophils # (0.04-0.35) 10*3/uL Basophils # (0.00-0.10) 10*3/uL Immature Plt Fraction (1.1-6.1) % PT (10.0-12.5) sec INR (<1.2) APTT (22.0-30.0) sec D-Dimer 1.04 H (<0.60) mg/L FEU Sodium (137-145) mmol/L Potassium (3.5-5.1) mmol/L Chloride (98-107) mmol/L Carbon Dioxide (22-30) mmol/L Anion Gap mmol/L BUN (7-17) mg/dL Creatinine (0.52-1.04) mg/dL Est GFR (CKD-EPI)AfAm (>60 ml/min/1.73 sqM) Est GFR (CKD-EPI)NonAf (>60 ml/min/1.73 sqM) Glucose (74-99) mg/dL Lactic Ac Sepsis Rflx Plasma Lactic Acid Alvreto 2.1 H* (0.7-2.0) mmol/L Calcium (8.4-10.2) mg/dL Magnesium (1.6-2.3) mg/dL Total Bilirubin (0.2-1.3) mg/dL AST (14-36) U/L ALT (4-34) U/L Alkaline Phosphatase (38-126) U/L Troponin I 0.064 H* (0.000-0.034) ng/mL NT-Pro-B Natriuret Pep pg/mL Total Protein (6.3-8.2) g/dL Albumin (3.5-5.0) g/dL 12/16/24 Range/Units 15:23 WBC (4.50-10.00) 10*3/uL RBC (4.10-5.20) 10*6/uL Hgb (12.0-15.0) g/dL Hct (37.2-46.3) % MCV (80.0-97.0) fL MCH (27.0-32.0) pg MCHC (32.0-37.0) g/dL Plt Count (140-440) 10*3/uL MPV (9.5-12.2) fL Immature Gran % (Auto) % Neutrophils % % Lymphocytes % % Monocytes % % Eosinophils % % Basophils % % Immature Gran # (0.00-0.04) 10*3/uL Neutrophils # (1.80-7.70) 10*3/uL Lymphocytes # (0.90-5.00) 10*3/uL Monocytes # (0.20-1.00) 10*3/uL Eosinophils # (0.04-0.35) 10*3/uL Basophils # (0.00-0.10) 10*3/uL Immature Plt Fraction (1.1-6.1) % PT (10.0-12.5) sec INR (<1.2) APTT (22.0-30.0) sec D-Dimer (<0.60) mg/L FEU Sodium (137-145) mmol/L Potassium (3.5-5.1) mmol/L Chloride (98-107) mmol/L Carbon Dioxide (22-30) mmol/L Anion Gap mmol/L BUN (7-17) mg/dL Creatinine (0.52-1.04) mg/dL Est GFR (CKD-EPI)AfAm (>60 ml/min/1.73 sqM) Est GFR (CKD-EPI)NonAf (>60 ml/min/1.73 sqM) Glucose (74-99) mg/dL Lactic Ac Sepsis Rflx Y Plasma Lactic Acid Alverto (0.7-2.0) mmol/L Calcium (8.4-10.2) mg/dL Magnesium (1.6-2.3) mg/dL Total Bilirubin (0.2-1.3) mg/dL AST (14-36) U/L ALT (4-34) U/L Alkaline Phosphatase (38-126) U/L Troponin I (0.000-0.034) ng/mL NT-Pro-B Natriuret Pep pg/mL Total Protein (6.3-8.2) g/dL Albumin (3.5-5.0) g/dL - Radiology Data Radiology results: report reviewed, image reviewed Critical Care Time Critical Care Time: Yes Critical Care Time: >35 minutes Disposition Clinical Impression: NSTEMI (non-ST elevated myocardial infarction), Nicotine dependence, Dyspnea Disposition: ADMITTED IP TO THIS HOSP
[2024-12-16 15:08] LABS: ALT 25 U/L (4-34); AST 20 U/L (14-36); African American GFR (CKD) >90 (>60 ml/min/1.73 sqM); Albumin 3.2 g/dL (3.5-5.0); Alkaline Phosphatase 54 U/L (38-126); Anion Gap 9 mmol/L; Blood Urea Nitrogen 21 mg/dL (7-17); Calcium 8.2 mg/dL (8.4-10.2); Carbon Dioxide 22 mmol/L (22-30); Chloride 105 mmol/L (98-107); Glucose 132 mg/dL (74-99); Magnesium 1.8 mg/dL (1.6-2.3); Non-African American GFR(CKD) >90 (>60 ml/min/1.73 sqM); Potassium 2.9 mmol/L (3.5-5.1); Sodium 136 mmol/L (137-145); Total Bilirubin 1.4 mg/dL (0.2-1.3); Total Protein 5.4 g/dL (6.3-8.2)
[2024-12-16 15:13] LABS: Basophils # (A) 0.02 10*3/uL (0.00-0.10); Basophils % (A) 0.2 %; HCT 43.2 % (37.2-46.3); HGB 15.3 g/dL (12.0-15.0); Immature Platelet Fraction 2.3 % (1.1-6.1); MCH 31.6 pg (27.0-32.0); MCHC 35.4 g/dL (32.0-37.0); MCV 89.3 fL (80.0-97.0); Mean Platelet Volume 10.1 fL (9.5-12.2); Monocytes # (A) 0.26 10*3/uL (0.20-1.00); Monocytes % (A) 2.6 %; Neutrophils # (A) 9.32 10*3/uL (1.80-7.70); Neutrophils % (A) 93.5 %; Platelet Count 108 10*3/uL (140-440); RBC 4.84 10*6/uL (4.10-5.20); WBC 9.97 10*3/uL (4.50-10.00)
[2024-12-16 15:15] LABS: NT-Pro-B-Type Natriuretic Pept 1230 pg/mL
[2024-12-16] MEDS: POTASSIUM CHLORIDE ER 20 MEQ TAB.ER PO STA (15:29)
[2024-12-16 15:39] LABS: Partial Thromboplastin Time 20.1 sec (22.0-30.0); Prothrombin Time 10.9 sec (10.0-12.5)
[2024-12-16] MEDS: IPRATROPIUM-ALBUTEROL 3 ML NEB INHALATION STA (15:40)
[2024-12-16] MEDS: POTASSIUM CHLORIDE 20 MEQ in WATER FOR INJECTION 1 100ML.BAG IVPB STA (16:09)
[2024-12-16] MEDS: NITROGLYCERIN SL TABS 0.4 MG TAB SUBLINGUAL STA (17:30)
[2024-12-16] MEDS: methylPREDNISolone SOD SUCCI 125 MG/2 ML VIAL IV STA (17:30)
[2024-12-16] MEDS ORDERED: ALPRAZOLAM 2 MG PO PRN (17:43)
[2024-12-16] MEDS ORDERED: ALBUTEROL NEBULIZED 2.5 MG/3 ML INHALATION PRN (17:43)
[2024-12-16] MEDS ORDERED: LORazepam 1 MG TAB PO PRN (17:45)
--- NOTE | 2024-12-16 17:59 | CT ---
EXAMINATION TYPE: CT soft tissue neck w con CT DLP: combined 580.2 mGycm, Automated exposure control for dose reduction was used. DATE OF EXAM: 12/16/2024 5:01 PM COMPARISON: CTA chest from the same day. CT soft tissue neck 12/01/2024, 11/13/2024. CLINICAL INDICATION:Female, 69 years old with history of Dyspnea, throat cancer; PHH, dyspnea, dyspha justin, history of Ca. TECHNIQUE: Standard enhanced CT of the neck. Axial sections with coronal and sagittal reformats were obtained. Contrast used:100 mL of Isovue 370 with IV Contrast, (None if empty) Oral contrast used: (None if empty) FINDINGS: Brain: Visualized portions are grossly unremarkable. Orbits: Unremarkable Sinuses: Grossly unremarkable. Spaces of the neck: There is heterogenous and edematous appearance in the roof of the mouth involving the hard palate and possibly the upper aspects of the tongue. There is similar asymmetry soft tissue fullness in the region of the hypopharynx with greater soft tissue seen in the left central anterior region. The previously identified narrowing of the airway in this region appears to be not significa ntly changed measuring approximately 3.4 mm compared to 2.6 mm on the CTA neck from 11/13/2024. The voc al cords at this level appear symmetric. The remainder of the neck spaces appear symmetric and unrema rkable. The salivary glands and bilateral parotid glands appear within normal limits. The airway is p atent. Musculoskeletal: No acute osseous pathology. Similar retrolisthesis of C3 on C4. Lymph nodes: Few nonenlarged lymph nodes are seen along both anterior chains of the neck. Vascular structures: Visualized major arteries are patent. Thoracic Inlet/airway: Please see dedicated CTA chest evaluation from the same day. Soft tissues/Thyroid: Thyroid is severely atrophic/absent. The remainder of the soft tissues are unre markable. Other: none. IMPRESSION 1. Nonspecific heterogenous edematous appearance of the remainder of the mouth which may involve the hard palate and/or upper portion of the tongue. Correlate with oral exam. 2. Asymmetric soft tissue fullness again seen in the anterior hypopharynx at the level of the vocal c ords with similar narrowing of the airway. These findings may relate to history of throat malignancy and or posttreatment changes. Findings are similar to prior CTs in reference. The airway is otherwise patent. [facility], , 12/16/2024 5:56 PM
--- NOTE | 2024-12-16 18:07 | CT ---
EXAMINATION TYPE: CT chest angio for PE CT DLP: combined 580.2 mGycm, Automated exposure control for dose reduction was used. DATE OF EXAM: 12/16/2024 5:01 PM COMPARISON: CT soft tissue neck from the same day CTA chest 10/08/2024 CLINICAL INDICATION:Female, 69 years old with history of Dyspnea; dyspnea, dysphasia, history of Ca. TECHNIQUE/CONTRAST: CTA scan of the thorax is performed with IV Contrast, patient injected with 100 mL of Isovue 370, MIP images are created and reviewed these are created on a separate workstation.. FINDINGS: Pulmonary Artery: There is no evidence for a filling defect within the pulmonary vasculature to sugge st acute pulmonary embolism. The pulmonary artery is of normal size. Lungs/Pleura: No evidence of focal consolidation, pleural effusion or pneumothorax. Groundglass shelby es/atelectasis in the lingula. Subtle centrilobular emphysematous changes. Airway: Large airways are patent. Heart: Heart is within normal limits for size. Leads from the cardiac pacemaker is seen in the right ventricle and right atrium. Vasculature: No evidence of aortic aneurysm. Mediastinum: No gross evidence of adenopathy. Musculoskeletal: Multilevel degenerative changes of the visualized spine. No acute osseous abnormalit ies Soft Tissues/lymph nodes: Unremarkable. Lower neck: Please see separate CT soft tissue neck from the same day. Upper Abdomen: Right renal cystic changes. Small hilar hernia. Hyperplasia of the left adrenal gland suggested. IMPRESSION: No evidence of pulmonary embolism or metastatic disease within the thorax.. [facility], , 12/16/2024 6:05 PM
[2024-12-16] MEDS ORDERED: HEPARIN SODIUM 1,000 UN/ML (10ML VL) IV PRN (18:08)
[2024-12-16] MEDS ORDERED: NALOXONE 0.4 MG/ML 1 ML VIAL IV PRN (18:09)
[2024-12-16] MEDS ORDERED: MORPHINE SULFATE 4 MG/ML SYRINGE IV PRN (18:09)
[2024-12-16] MEDS ORDERED: ONDANSETRON 4 MG/2 ML VIAL IVP PRN (18:09)
[2024-12-16] MEDS ORDERED: HYDROcodone/APAP 5-325MG 1 EACH TAB PO PRN (18:09)
[2024-12-16] MEDS ORDERED: ACETAMINOPHEN TAB 325 MG TAB PO PRN (18:09)
[2024-12-16] MEDS ORDERED: NITROGLYCERIN SL TABS 0.4 MG TAB SUBLINGUAL PRN (18:10)
[2024-12-16] MEDS ORDERED: IPRATROPIUM-ALBUTEROL 3 ML NEB INHALATION PRN ×2 (18:14→19:48)
[2024-12-16] MEDS: SODIUM CHLORIDE 0.9% 500 ML 500 ML IV ONE (18:27)
[2024-12-16] MEDS: HEPARIN SOD,PORK IN 0.45% NACL 25,000 UNIT in 0.45% NACL 1 250ML.BAG IV SCH (19:08)
[2024-12-16] MEDS: HEPARIN SODIUM 1,000 UN/ML (10ML VL) IV ONE (19:10)
[2024-12-16] MEDS: IPRATROPIUM-ALBUTEROL 3 ML NEB INHALATION SCH (19:47)
[2024-12-16] MEDS: SYMBICORT 160-4.5 MCG INHALER INHALATION SCH (19:51)
[2024-12-16] MEDS: predniSONE 10 MG TAB PO SCH (21:08)
[2024-12-16] MEDS: carvediloL 6.25 MG TAB PO SCH (21:08)
[2024-12-16] MEDS: FUROSEMIDE 20 MG TAB PO SCH (21:09)
[2024-12-16] MEDS: ALPRAZolam 1 MG TAB PO PRN (21:09)
[2024-12-17] MEDS: LEVOTHYROXINE 88 MCG TAB PO SCH (06:24)
[2024-12-17] MEDS: FAMOTIDINE 20 MG TAB PO SCH (07:44)
[2024-12-17] MEDS: predniSONE 20 MG TAB PO SCH (07:44)
[2024-12-17] MEDS: amLODIPine 2.5 MG TAB PO SCH (07:44)
[2024-12-17] MEDS: PANTOPRAZOLE 40 MG/10 ML VIAL IV SCH (07:45)
[2024-12-17] MEDS: ASPIRIN 325 MG TAB PO SCH (07:45)
[2024-12-17] MEDS: PARoxetine 20 MG TAB PO SCH (07:45)
[2024-12-17] MEDS: ATORVASTATIN 80 MG TAB PO SCH (07:45)
[2024-12-17 07:59] LABS: Basophils # (A) 0.03 10*3/uL (0.00-0.10); Basophils % (A) 0.4 %; HCT 40.3 % (37.2-46.3); HGB 14.5 g/dL (12.0-15.0); Immature Platelet Fraction 3.4 % (1.1-6.1); Lymphocytes # (A) 0.24 10*3/uL (0.90-5.00); Lymphocytes % (A) 3.2 %; MCH 32.2 pg (27.0-32.0); MCV 89.4 fL (80.0-97.0); Mean Platelet Volume 10.5 fL (9.5-12.2); Monocytes # (A) 0.27 10*3/uL (0.20-1.00); Monocytes % (A) 3.6 %; Neutrophils # (A) 6.85 10*3/uL (1.80-7.70); Neutrophils % (A) 90.7 %; Platelet Count 113 10*3/uL (140-440); RBC 4.51 10*6/uL (4.10-5.20); RDW 14.3 % (11.5-14.5); WBC 7.55 10*3/uL (4.50-10.00)
[2024-12-17 08:06] LABS: INR 1.1 (<1.2); Prothrombin Time 12.2 sec (10.0-12.5)
[2024-12-17] MEDS: TIOTROPIUM 2.5 MCG INHALER INHALATION SCH (09:26)
[2024-12-17 11:24] LABS: Appearance,Urine Clear (Clear); Bilirubin,Urine Negative (Negative); Blood,Urine Negative (Negative); Color,Urine Colorless; Glucose,Urine (UA) Trace (Negative); Ketones,Urine Negative (Negative); Leukocyte Esterase,Urine Negative (Negative); Nitrite,Urine Negative (Negative); Protein,Urine Negative (Negative); Specific Gravity,Urine 1.014 (1.001-1.035); Urobilinogen,Urine <2.0 mg/dL (<2.0)
[2024-12-17 13:34] LABS: Chol/HDL Ratio 3.47 Ratio; LDL Cholesterol,Calculated 113.8 mg/dL (0.0-131.0)
[2024-12-17 15:31] LABS: Magnesium 1.8 mg/dL (1.6-2.3)
[2024-12-17 15:35] LABS: NT-Pro-B-Type Natriuretic Pept 1700 pg/mL
--- NOTE | 2024-12-17 19:56 | P.CRDCN ---
History of Present Illness Consult date: 12/17/24 History of present illness: HISTORY OF PRESENTING ILLNESS: 69-year-old presented because of some choking sensation in throat, feeling very anxious that she is not able to take deep breath. She is also reporting some exertional shortness of breath for last several weeks. Got worse over last few days. Denies any substernal chest heaviness. Denies any palpitation lig htheadedness. Admission Vitals: 118/83, heart rate 63 Admission Labs: Hb 14 WBC 7, BNP 1700, troponin 0.05 with flat pattern, triglyceride 132, LDL 113, HDL 56, TSH 2.5 Admission EKG: Sinus rhythm with ventricularly paced rhythm Imaging: CTA chest did not show any evidence of PE, Prior cardiac testing: Echo from 2022 shows normal LVEF, PPM in RA and RV, mild MR mild TR REVIEW OF SYSTEMS: 14 point review of system is negative except what is mentioned above in HPI. PHYSICAL EXAMINATION: Neck: Brisk carotid upstroke, no jugular venous distention. Lungs: Clear to auscultation. Heart: Regular rate and rhythm, S1-S2, , no murmur or rub. Abdomen: Soft nontender, positive bowel sounds. Extremities: No edema, intact distal pulses. Neuro: Alert, oritented, no focal deficits. Detailed neuro exam was not performed. ASSESSMENT: # Shortness of breath with choking sensation in the throat # Elevated troponin with a flat pattern, less likely ACS. # Nonischemic cardiomyopathy, with previously recovered LVEF # Chronic HFpEF, currently not in exacerbation # BiV ICD, last generator change in 2023 # Tobacco smoker # Generalized anxiety disorder # COPD PLAN: She has been having choking sensation mostly in her throat and reports having difficulty breathing. Less likely seems to be cardiogenic. Lungs seems to be clear on physical examination does not appear to be in acute CHF exacerbation either. Recommend follow-up oral examination by primary team. CT soft tissue neck did show some asymmetric soft tissue fullness in the anterior hypopharynx level of the vocal cord with similar narrowing of the airway, Obtain updated echocardiogram Continue amlodipine 2.5, aspirin, Lipitor, Coreg 6.25 twice daily, Lasix 40 p.o. twice daily Prior to discharge consider adding Aldactone and Farxiga as clinically indicated Daniel Wells MD, FACC, RPVI Thank you for allowing [facility] to participate in this patient's care. Feel free to reach out in case of any followup questions. Past Medical History Past Medical History: Cancer, COPD, GERD/Reflux, Hypertension, Rheumatoid Arthritis (RA), Sleep Apnea/CPAP/BIPAP, Thyroid Disorder, Vascular Disorder Additional Past Medical History / Comment(s): USES CPAP MACHINE and O2 at 2L at night as well. STATES HX OF STOMACH ULCERS. Current "rash on right foot from flip flops". PAD. History of Any Multi-Drug Resistant Organisms: None Reported Past Surgical History: AICD, Heart Catheterization, Pacemaker Additional Past Surgical History / Comment(s): Defibrillator, bilateral cateract surgery, battery change on AICD/Pacemaker 10/2023. Past Anesthesia/Blood Transfusion Reactions: No Reported Reaction, Motion Sickness Type of Cardiac Device: AICD Device Placement Date:: 2012 Past Psychological History: Anxiety, Depression Smoking Status: Former smoker Past Alcohol Use History: None Reported Past Drug Use History: None Reported - Past Family History Brother(s) Family Medical History: Deep Vein Thrombosis (DVT) Medications and Allergies Home Medications Medication Instructions Recorded Confirmed Type Albuterol Inhaler [Ventolin Hfa 2 puff INHALATION RT-QID PRN 02/10/18 12/16/24 History Inhaler] PARoxetine [Paxil] 20 mg PO DAILY 09/30/23 12/16/24 History Fluticasone/Umeclidin/Vilanter 1 puff INHALATION RT-DAILY 03/23/24 12/16/24 History [Treleharrison Ellipta 100-62.5-25] Famotidine 20 mg PO DAILY 05/16/24 12/16/24 History amLODIPine [Norvasc] 2.5 mg PO DAILY 05/16/24 12/16/24 History Atorvastatin [Lipitor] 80 mg PO DAILY 10/09/24 12/16/24 History Levothyroxine Sodium [Synthroid] 88 mcg PO DAILY 10/09/24 12/16/24 History carvediloL [Coreg] 6.25 mg PO BID 10/09/24 12/16/24 History Furosemide [Lasix] 40 mg PO BID #60 tab 12/02/24 12/16/24 Rx ALPRAZolam [Xanax] 2 mg PO TID PRN 12/16/24 12/16/24 History predniSONE 10 mg PO HS 12/16/24 12/16/24 History predniSONE [Deltasone] 40 mg PO DAILY 12/16/24 12/16/24 History Allergies Allergy/AdvReac Type Severity Reaction Status Date / Time elastic Allergy Rash/Hives Uncoded 12/16/24 14:14 Physical Exam Vitals: Vital Signs Temp Pulse Pulse Resp BP BP Pulse Ox 12/17/24 15:24 63 18 118/83 95 12/17/24 14:21 65 18 12/17/24 12:51 61 12/17/24 12:43 65 12/17/24 11:05 98.2 F 65 18 120/73 97 12/17/24 09:36 75 12/17/24 09:28 70 97 12/17/24 07:35 98.2 F 56 L 16 150/89 98 12/17/24 04:00 60 16 131/81 99 12/17/24 00:00 52 L 20 105/69 97 12/16/24 21:20 98.1 F 53 L 24 165/88 99 12/16/24 20:40 94 17 138/79 99 12/16/24 20:00 69 Intake and Output 12/17/24 12/17/24 12/17/24 06:59 14:59 22:59 Intake Total 58.122 Balance 58.122 Intake: Intake, IV Titration 58.122 Amount Heparin Sod,Pork in 0.45% 58.122 NaCl 25,000 unit In 0.45 % NaCl 1 250ml.bag @ 12 UNITS/KG/HR 8.11 mls/hr IV .Q24H [facility] Rx#: [id number] Other: Voiding Method Toilet Toilet # Voids 1 Weight 70 kg Results 12/17/24 06:38 12/16/24 14:51 Cardiac Enzymes 12/16/24 12/17/24 Range/Units 19:01 00:43 Troponin I 0.057 H* 0.057 H* (0.000-0.034) ng/mL Coagulation 12/17/24 12/17/24 12/17/24 Range/Units 00:43 06:38 11:55 PT 12.2 (10.0-12.5) sec APTT 81.2 H 57.7 H (22.0-30.0) sec Lipids 06/08/25 Range/Units 06:38 Triglycerides 132.00 (0.00-149.00) mg/dL Cholesterol 197.00 (0.00-200.00) mg/dL HDL Cholesterol 56.80 (40.00-60.00) mg/dL Cholesterol/HDL Ratio 3.47 Ratio CBC 12/17/24 Range/Units 06:38 WBC 7.55 (4.50-10.00) 10*3/uL RBC 4.51 (4.10-5.20) 10*6/uL Hgb 14.5 (12.0-15.0) g/dL Hct 40.3 (37.2-46.3) % Plt Count 113 L (140-440) 10*3/uL Current Medications Generic Name Dose Route Start Last Admin Trade Name Freq PRN Reason Stop Dose Admin Acetaminophen 650 mg 12/16/24 18:09 Acetaminophen Tab 325 Mg Tab PO Q6HR PRN Mild Pain or Fever > 100.5 Hydrocodone Bitart/Acetaminophen 1 each 12/16/24 18:09 Hydrocodone/Apap 5-325mg 1 Each Tab PO Q4HR PRN Moderate Pain (Scale 4 to 6) Albuterol/Ipratropium 3 ml 12/16/24 20:00 12/17/24 16:18 Ipratropium-Albuterol 3 Ml Neb INHALATION Not Given RT-QID MIRIAN Albuterol/Ipratropium 3 ml 12/16/24 19:48 Ipratropium-Albuterol 3 Ml Neb INHALATION RT-Q2H PRN Shortness Of Breath Or Wheezing Alprazolam 2 mg 12/16/24 17:46 12/17/24 15:25 Alprazolam 1 Mg Tab PO 2 mg TID PRN Administration Anxiety Amlodipine Besylate 2.5 mg 12/17/24 09:00 12/17/24 07:44 Amlodipine 2.5 Mg Tab PO 2.5 mg DAILY MIRIAN Administration Aspirin 81 mg 12/18/24 09:00 Aspirin 81 Mg PO DAILY [facility] Atorvastatin Calcium 40 mg 12/18/24 09:00 Atorvastatin 40 Mg Tab PO DAILY [facility] Budesonide/Formoterol Fumarate 2 puff 12/16/24 20:00 12/17/24 09:26 Symbicort 160-4.5 Mcg Inhaler INHALATION 2 puff RT-BID MIRIAN Administration Carvedilol 6.25 mg 12/16/24 21:00 12/17/24 07:45 Carvedilol 6.25 Mg Tab PO 6.25 mg BID MIRIAN Administration Famotidine 20 mg 12/17/24 09:00 12/17/24 07:44 Famotidine 20 Mg Tab PO 20 mg DAILY MIRIAN Administration Furosemide 40 mg 12/16/24 21:00 12/17/24 07:45 Furosemide 20 Mg Tab PO 40 mg BID MIRIAN Administration Levothyroxine Sodium 88 mcg 12/17/24 06:30 12/17/24 06:24 Levothyroxine 88 Mcg Tab PO Not Given DAILY@0630 MIRIAN Morphine Sulfate 4 mg 12/16/24 18:09 Morphine Sulfate 4 Mg/Ml Syringe IV Q4HR PRN Severe Pain (Scale 7 to 10) Naloxone HCl 0.2 mg 12/16/24 18:09 Naloxone 0.4 Mg/Ml 1 Ml Vial IV Q2M PRN Opioid Reversal Nitroglycerin 0.4 mg 12/16/24 18:10 Nitroglycerin Sl Tabs 0.4 Mg Tab SUBLINGUAL Q5M PRN Chest Pain Ondansetron HCl 4 mg 12/16/24 18:09 Ondansetron 4 Mg/2 Ml Vial IVP Q8HR PRN Nausea And Vomiting Pantoprazole Sodium 40 mg 12/17/24 09:00 12/17/24 07:45 Pantoprazole 40 Mg/10 Ml Vial IV 40 mg DAILY MIRIAN Administration Paroxetine HCl 20 mg 12/17/24 09:00 12/17/24 07:45 Paroxetine 20 Mg Tab PO 20 mg DAILY MIRIAN Administration Prednisone 40 mg 12/17/24 09:00 12/17/24 07:44 Prednisone 20 Mg Tab PO 40 mg DAILY MIRIAN Administration Prednisone 10 mg 12/16/24 21:00 12/16/24 21:08 Prednisone 10 Mg Tab PO 10 mg HS MIRIAN Administration Tiotropium [place] 2 puff 12/17/24 08:00 12/17/24 09:26 Tiotropium 2.5 Mcg Inhaler INHALATION 2 puff RT-DAILY MIRIAN Administration Intake and Output 12/17/24 12/17/24 12/17/24 06:59 14:59 22:59 Intake Total 58.122 Balance 58.122 Intake: Intake, IV Titration 58.122 Amount Heparin Sod,Pork in 0.45% 58.122 NaCl 25,000 unit In 0.45 % NaCl 1 250ml.bag @ 12 UNITS/KG/HR 8.11 mls/hr IV .Q24H [facility] Rx#: [id number] Other: Voiding Method Toilet Toilet # Voids 1 Weight 70 kg 12/17/24 06:38 12/16/24 14:51
--- NOTE | 2024-12-17 21:35 | HP ---
HISTORY AND PHYSICAL CHIEF COMPLAINT: Shortness of breath and chest pain. 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 She continues to complain of discomfort in her throat and some stridor. She has responded to steroids. She came into the emergency room at this time because she was having trouble with shortness of breath. In the emergency room, she also was complaining of some chest pain and she had 2 elevated troponins. EKG was unremarkable. REVIEW OF SYSTEMS: She denies any focal neurologic deficits, cough, hemoptysis, abdominal pain, nausea, vomiting, fever and chills, etc. Past medical history, family history, personal and social histories are all otherwise unremarkable and noncontributory. PHYSICAL EXAMINATION: VITAL SIGNS: Normal. HEENT: Face is somewhat puffy secondary to the steroids that she has been on. NECK: No neck masses. CHEST: Demonstrates an increased AP diameter and is clear except for occasional rales. CARDIAC: Normal. ABDOMEN: Soft, nontender. IMPRESSION: 1. Shortness of breath. 2. Chest pain. 3. Elevated troponin. 4. History of carcinoma of the pharynx. 5. Iatrogenic Jalesea's appearance. PLAN: 1. Bedrest. 2. IV fluids. 3. Obtain 3rd troponin. 4. Consult with Cardiology. MMODL / IJN: [id number] /
--- NOTE | 2024-12-17 21:50 | PN ---
PROGRESS NOTE CHIEF COMPLAINT: Chest pain and shortness of breath. HISTORY OF PRESENT ILLNESS: This lady is doing fairly well, but she is still quite anxious. She is not having any chest pain at this time. PHYSICAL EXAMINATION: LUNGS: Breath sounds are diminished throughout. CARDIAC: Normal. ABDOMEN: Soft, nontender. HEENT: Face is slightly edematous. IMPRESSION: 1. Shortness of breath. 2. Chronic obstructive pulmonary disease. 3. Probable NSTEMI. 4. History of carcinoma of the larynx. PLAN: Cardiology is to evaluate today regarding her enzymes. MMODL / IJN: [id number] /
[2024-12-18 00:35] LABS: Chol/HDL Ratio 3.77 Ratio; LDL Cholesterol,Calculated 136.9 mg/dL (0.0-131.0)
[2024-12-18] MEDS: ASPIRIN 81 MG PO SCH (07:48)
[2024-12-18] MEDS: ATORVASTATIN 40 MG TAB PO SCH (07:49)
[2024-12-18] MEDS: SPIRONOLACTONE 25 MG TAB PO SCH (10:37)
[2024-12-18] MEDS: DAPAGLIFLOZIN PROPANEDIOL 5 MG TABLET PO SCH (10:37)
--- NOTE | 2024-12-18 12:19 | P.PN ---
Subjective HISTORY OF PRESENT ILLNESS: This is a 69-year-old female who follows in the office with Dr. Greene. Patient presented to the hospital initially with complaints of dysphagia and feeling like something is stuck in her throat. Patient examined this morning at the bedside. Patient currently denies chest pain or pressure. She denies shortness of breath. She continues to feel like there is something in her throat. Vital signs are stable. Blood pressure 101/66. PHYSICAL EXAM: VITAL SIGNS: Reviewed. GENERAL: Well-developed in no acute distress. NECK: Supple. No JVD or thyromegaly LUNGS: Respirations even and unlabored. Lungs essentially clear to auscultation bilaterally. HEART: Regular rate and rhythm. S1 and S2 heard. EXTREMITIES: Normal range of motion. No clubbing or cyanosis. Peripheral pulses intact. No lower extremity edema ASSESSMENT: Shortness of breath with choking sensation History of throat cancer Elevated troponins, flat, no evidence of myocardial injury or ischemia History of nonischemic cardiomyopathy with recovered EF History of BiV ICD, [employer] Chronic congestive heart failure with preserved EF, currently euvolemic History of COPD Nicotine dependence Anxiety PLAN: Continue Amlodipine, Aspirin, Lipitor, carvedilol, Lasix Add Aldactone and Farxiga 2D echo ordered. Await results. Further recommendations pending patient course Nurse practitioner note has been reviewed by physician. Signing provider agrees with the documented findings, assessment, and plan of care documented by [employer] as a scribe. Objective - Vital Signs Vital signs: Vital Signs Temp 98.3 F 12/18/24 11:56 Pulse 76 12/18/24 11:56 Resp 16 12/18/24 11:56 BP 101/66 12/18/24 11:56 Pulse Ox 95 12/18/24 11:56 FiO2 Intake & Output 12/17/24 12/18/24 12/18/24 18:59 06:59 18:59 Intake Total 540 Balance 540 Weight 69.9 kg Intake: Oral 540 Other: Voiding Method Toilet Toilet # Voids 1 - Labs CBC & Chem 7: 12/17/24 06:38 12/16/24 14:51 Labs: Abnormal Lab Results - Last 24 Hours (Table) 12/17/24 12/17/24 12/17/24 Range/Units 11:55 14:51 14:51 APTT 57.7 H (22.0-30.0) sec Hemoglobin A1c 6.6 H (<=6.0) % Cholesterol 225.00 H (0.00-200.00) mg/dL LDL Cholesterol, Calc 136.9 H (0.0-131.0) mg/dL
--- NOTE | 2024-12-18 14:18 | CA ---
Transthoracic Echo Report Name: Haylie Yu Age: 69 Gender: F : 1955 Exam Date: 12/18/2024 08:20 Exam Location: [facility] Echo Ht (in): 64 Wt (lb): 154 Ordering Physician: Norma Owens Attending/Referring Phys: Manager Behavior Kush Benitez RDCS Procedure CPT: Indications: nstemi Cardiac Hx: Pacemaker, Defibrillator, COPD, Cancer, HTN Technical Quality: Technically difficult study Contrast 1: Definity Total Dose (mL): 2 Contrast 2: Total Dose (mL): MEASUREMENTS (Male / Female) Normal Values 2D ECHO LV Diastolic Diameter PLAX 3.9 cm 4.2 - 5.9 / 3.9 - 5.3 cm LV Systolic Diameter PLAX 2.6 cm IVS Diastolic Thickness 1.1 cm 0.6 - 1.0 / 0.6 - 0.9 cm LVPW Diastolic Thickness 1.1 cm 0.6 - 1.0 / 0.6 - 0.9 cm LV Relative Wall Thickness 0.6 RV Internal Dim ED PLAX 2.5 cm DOPPLER Mitral E Point Velocity 27.6 cm/s Mitral A Point Velocity 55.6 cm/s Mitral E to A Ratio 0.5 MV Deceleration Time 280.7 ms MV E' Velocity 5.3 cm/s Mitral E to MV E' Ratio 5.3 TR Peak Velocity 201.9 cm/s TR Peak Gradient 16.3 mmHg FINDINGS Left Ventricle Left ventricular ejection fraction is estimated at 35-40%. Mild concentric left ventricular hypertrophy. Moderately reduced global left ventricular systolic function. Right Ventricle Normal right ventricular size. Reduced right ventricular global systolic function. Right ventricular systolic pressure within normal limits. A wire is noted in the right ventricle Right Atrium Normal right atrial size. Left Atrium Normal left atrial size. Mitral Valve Mitral valve thickened. No mitral stenosis. Mild mitral regurgitation. Aortic Valve Aortic valve not well visualized. No aortic stenosis. No aortic regurgitation. Tricuspid Valve Structurally normal tricuspid valve. No tricuspid stenosis. Mild tricuspid regurgitation. Pulmonic Valve Pulmonic valve not well visualized. Pericardium No pericardial effusion.echo free space anterior to the right ventricle likely represents a fat pad. Aorta Aortic annulus normal. CONCLUSIONS Moderate severe global hypokinesis of the left ventricle Wire noted in the right ventricle Mild mitral and tricuspid regurgitation Previewed by: Dr. Donavan Steiner MD (Electronically Signed) Final Date: 18 December 2024 11:56
[2024-12-18] MEDS: POTASSIUM CHLORIDE ER 20 MEQ TAB.ER PO SCH (21:06)
--- NOTE | 2024-12-19 00:18 | PN ---
PROGRESS NOTE DATE OF SERVICE: 12/18/2024 CHIEF COMPLAINT: Difficulty breathing and NSTEMI. HISTORY OF PRESENT ILLNESS: This lady is doing fairly well and she is being evaluated by Cardiology. Her BNP was also elevated along with 2 troponins. PHYSICAL EXAMINATION: LUNGS: Breath sounds are diminished throughout. CARDIAC: Normal. ABDOMEN: Soft, nontender. IMPRESSION: 1. Difficulty breathing. 2. Cancer of the larynx. 3. Non-ST elevation myocardial infarction. PLAN: Gradually increase activity and wait for further recommendations from Cardiology. MMODL / IJN: [id number] /
[2024-12-19 10:05] LABS: African American GFR (CKD) 76 (>60 ml/min/1.73 sqM); Anion Gap 9 mmol/L; Blood Urea Nitrogen 31 mg/dL (7-17); Calcium 8.5 mg/dL (8.4-10.2); Carbon Dioxide 31 mmol/L (22-30); Chloride 92 mmol/L (98-107); Glucose 149 mg/dL (74-99); Magnesium 1.9 mg/dL (1.6-2.3); Non-African American GFR(CKD) 65 (>60 ml/min/1.73 sqM); Potassium 3.3 mmol/L (3.5-5.1); Sodium 132 mmol/L (137-145)
[2024-12-19 10:15] LABS: Basophils # (A) 0.04 10*3/uL (0.00-0.10); Basophils % (A) 0.4 %; Eosinophils # (A) 0.01 10*3/uL (0.04-0.35); Eosinophils % (A) 0.1 %; HGB 16.8 g/dL (12.0-15.0); Immature Platelet Fraction 4.2 % (1.1-6.1); Lymphocytes # (A) 0.48 10*3/uL (0.90-5.00); Lymphocytes % (A) 5.2 %; MCH 31.7 pg (27.0-32.0); MCHC 35.7 g/dL (32.0-37.0); MCV 88.7 fL (80.0-97.0); Mean Platelet Volume 10.7 fL (9.5-12.2); Monocytes # (A) 0.66 10*3/uL (0.20-1.00); Monocytes % (A) 7.1 %; Neutrophils # (A) 7.89 10*3/uL (1.80-7.70); Neutrophils % (A) 84.7 %; Platelet Count 132 10*3/uL (140-440); RDW 14.1 % (11.5-14.5); WBC 9.31 10*3/uL (4.50-10.00)
--- NOTE | 2024-12-19 11:22 | CDI ---
Documentation Clarification Form Date: 12/19/2024 10:15:14 AM From: Mera Cho RN CCDS Phone: [phone] Admit Date: 12/16/2024 06:18:00 PM Patient Name: Haylie Yu Visit Number: [id number] Discharge Date: ATTENTION: The Clinical Documentation Specialists (CDI) and [facility] Coding Staff appreciate your assistance in clarifying documentation. Please respond to the clarification below the line at the bottom and electronically sign. The CDI & [facility] Coding staff will review the response and follow-up if needed. Please note: Queries are made part of the Legal Health Record. If you have any questions, please contact the author of this message via ITS. Doctor: Tani Emmanuel Conflicting documentation has been found in the medical record. As attending physician, please provide clarification. Elevated troponins, flat, no evidence of myocardial injury or ischemia, 12/18, Cardiology note. Non-ST elevation myocardial infarction, 12/18, Medicine note. History/Risk Factors: 69 year old female presented to the hospital with choking sensation in throat, feeling anxious that she is not able to take deep breath. Also reports some exertional shortness of breath for last several weeks. Medical History: Chronic HFpEF, Tobacco smoker, COPD, Non ischemic cardiomyopathy with previously recovered LEVF and Throat cancer. Medical record. ED note 12/16 and Cardiology note 12/18. Clinical Indicators: CT Angio Chest 12/16: No evidence of pulmonary embolism or metastatic disease within the thorax Vss, 12/16: B/P 149/104; HR 70; Temp 98.4F Oral; RR 20; SpO2 100% ra Troponin, 12/16: 0.064; 0.057; 12/17: 0.057 BNP, 12/16: 1230 ECHO, 12/18: Moderate severe global hypokinesis of the left ventricle, wire noted in right ventricle, mild mitral and tricuspid regurgitation Cardiology consult, 12/17: She has been having choking sensation mostly in her throat and reports having difficulty breathing.Less likely seems to be cardiogenic.Lungs seems to be clear on physical examination does not appear to be in acute CHF exacerbation either.Recommend follow-up oral examination by primary team.CT soft tissue neck did show some asymmetric soft tissue fullness in the anterior hypopharynx level of the vocal cord with similar narrowing of the airway, Treatment: Cardiology consult, ECHO, Please clarify which diagnosis is most appropriate: [ ] Non-ST elevation myocardial infarction Ruled Out [ ] Non-ST elevation myocardial infarction Ruled IN [ ] Other (please specify) [ ] Unable to determine (Template Last Revised: September 2020) MTDD
[2024-12-19] MEDS ORDERED: Potassium Replacement Protocol 1 EACH MISC MISCELLANE PRN (16:47)
[2024-12-19] MEDS: POTASSIUM BICARBONATE/CIT AC 20 MEQ TABLET.EFF PO SCH (17:43)
[2024-12-20 09:34] LABS: Potassium 3.1 mmol/L (3.5-5.1)
[2024-12-20] MEDS ORDERED: Potassium Replacement Protocol 1 EACH MISC MISCELLANE PRN (10:22)
[2024-12-20 11:15] VITALS: BP 133/61; PULSE 71; RESP 18; TEMP 97.4
[2024-12-20] MEDS: POTASSIUM CHLORIDE ER 20 MEQ TAB.ER PO SCH (11:44)
--- NOTE | 2024-12-21 02:39 | DS ---
DISCHARGE SUMMARY CHIEF COMPLAINT: Shortness of breath and chest pain. HISTORY OF PRESENT ILLNESS AND PHYSICAL EXAM: Details of this lady's history and physical can be found in the initial workup. LABORATORY STUDIES: While she was in a hospital, she had laboratory studies, details of which can be found in the laboratory section of her chart. COURSE IN HOSPITAL: After admission, she was placed on bedrest and started intravenous fluids. She was seen by Cardiology. It was felt that she was stable and no further intervention was warranted. She continued to complain quite a bit of swelling in the throat and dyspnea, but her chest remained clear. It was felt that she could be discharged on November 19 and she will follow up in the office. FINAL DIAGNOSES: 1. Shortness of breath. 2. [id number] myocardial infarction. 3. Chronic obstructive pulmonary disease. 4. History of carcinoma of the larynx. 5. Depression. OPERATIONS: None. CONSULTATIONS: Cardiology. She is improved. MMODL / WINSOMEN: [id number] /
--- NOTE | 2024-12-21 02:54 | PN ---
PROGRESS NOTE DATE OF SERVICE: 12/19/2024 CHIEF COMPLAINT: Shortness of breath and NSTEMI. HISTORY OF PRESENT ILLNESS: This lady is still not breathing very well. She has not had any further chest pain and she is being seen by Cardiology. PHYSICAL EXAMINATION: LUNGS: Breath sounds are very poor. CARDIAC: Normal. ABDOMEN: Soft, nontender. IMPRESSION: 1. Shortness of breath. 2. Chronic obstructive pulmonary disease. 3. History of carcinoma of the larynx. 4. Chest pain. PLAN: Increase activity. Her potassium still slightly low and we will hold discharge for another day. MMODL / IJN: [id number] /
--- NOTE | 2024-12-21 17:14 | MISC ---
MISCELLANOUS REPORT [id number] ruled in. MMODL / IJN: [id number] /
== END 2024-12-20 16:11 | disposition home health service (06) ==
LOC: EC 14:08 → INTOOBSV 18:18 → 3SCARD 18:18
PROVIDERS: ADMIT Family Medicine; ATTEND Family Medicine
DX: I21.4 Non-ST elevation (NSTEMI) myocardial infarction (principal); I11.0 Hypertensive heart disease with heart failure; I50.32 Chronic diastolic (congestive) heart failure; I42.8 Other cardiomyopathies; J44.9 Chronic obstructive pulmonary disease, unspecified; C32.9 Malignant neoplasm of larynx, unspecified; F17.200 Nicotine dependence, unspecified, uncomplicated; K21.9 Gastro-esophageal reflux disease without esophagitis; G47.30 Sleep apnea, unspecified; F32.A Depression, unspecified; F41.1 Generalized anxiety disorder; M06.9 Rheumatoid arthritis, unspecified; E07.9 Disorder of thyroid, unspecified; Z79.890 Hormone replacement therapy; Z79.899 Other long term (current) drug therapy; Z95.810 Presence of automatic (implantable) cardiac defibrillator; Z79.52 Long term (current) use of systemic steroids; Z79.51 Long term (current) use of inhaled steroids
CPT/HCPCS: 96376 ×4; 96366 ×3; 96375 ×2; 96365; 96367; 99291; 36415; 94640 ×5; 94760 ×3; 93306; 97162; 97166; 92610; 85379; 83880 ×2; 80061; 80053; 80048; 84443; 83605; 83735 ×4; 84132 ×2; 84484 ×2; 85025 ×3; 85610 ×2; 85730 ×2; 81003; 83036; 70491; 71275; G0378 ×5; J3360; J3480; J1644 ×2; J7512 ×7; Q9967; J2919; J2470 ×4

== ENCOUNTER 2024-12-25 10:54 | Inpatient (IN) | payer MEDICARE, OTHER ==
[2024-12-25 11:44] LABS: HCT 43.3 % (37.2-46.3); HGB 16.1 g/dL (12.0-15.0); MCH 32.3 pg (27.0-32.0); MCHC 37.2 g/dL (32.0-37.0); MCV 86.8 fL (80.0-97.0); Platelet Count 178 10*3/uL (140-440); RBC 4.99 10*6/uL (4.10-5.20); RDW 14.2 % (11.5-14.5); WBC 8.24 10*3/uL (4.50-10.00)
[2024-12-25] MEDS: ASPIRIN 81 MG PO STA ×2 (11:45→16:12)
[2024-12-25] MEDS: SODIUM CHLORIDE 0.9% 500 ML 500 ML IV STA (11:46)
[2024-12-25] MEDS: LORazepam 1 MG TAB PO STA ×2 (11:46→14:39)
[2024-12-25] MEDS: NITROGLYCERIN OINT 1 INCH/GM PACKET TOPICAL STA (11:46)
[2024-12-25 12:02] LABS: INR 0.9 (<1.2); Partial Thromboplastin Time 20.3 sec (22.0-30.0); Prothrombin Time 10.4 sec (10.0-12.5)
[2024-12-25 12:09] LABS: Lymphocytes # (M) 0.66 k/uL (1.0-4.8); Monocytes # (M) 0.58 k/uL (0-1.0); Neutrophils # (M) 7.00 k/uL (1.3-7.7); Neutrophils % (M) 84 %; Total Cells Counted 100
--- NOTE | 2024-12-25 12:27 | XR ---
EXAMINATION TYPE: XR chest 2V DATE OF EXAM: 12/25/2024 12:08 PM COMPARISON: 12/01/2024 CLINICAL INDICATION: Female, 69 years old with history of Chest Pain, TECHNIQUE: XR chest 2V view(s) obtained. FINDINGS: The heart size is normal. Pacemaker overlies left chest. The pulmonary vasculature is normal. The lungs are clear. IMPRESSION: 1. No acute pulmonary process. [facility], , 12/25/2024 12:24 PM
[2024-12-25 13:02] LABS: ALT 65 U/L (4-34); African American GFR (CKD) >90 (>60 ml/min/1.73 sqM); Albumin 3.4 g/dL (3.5-5.0); Anion Gap 8 mmol/L; Blood Urea Nitrogen 30 mg/dL (7-17); Calcium 8.1 mg/dL (8.4-10.2); Carbon Dioxide 31 mmol/L (22-30); Chloride 86 mmol/L (98-107); Glucose 126 mg/dL (74-99); Non-African American GFR(CKD) >90 (>60 ml/min/1.73 sqM); Sodium 125 mmol/L (137-145); Total Protein 5.7 g/dL (6.3-8.2)
[2024-12-25 13:05] LABS: AST 57 U/L (14-36); Alkaline Phosphatase 69 U/L (38-126); Magnesium 2.2 mg/dL (1.6-2.3); Potassium 3.0 mmol/L (3.5-5.1)
--- NOTE | 2024-12-25 14:28 | ED ---
General Adult HPI - General Chief complaint: Recheck/Abnormal Lab/Rx Stated complaint: cardiac issue Time Seen by Provider: 12/25/24 11:00 Source: patient, RN notes reviewed, old records reviewed Mode of arrival: EMS Limitations: no limitations - History of Present Illness Initial comments: This is a 69-year-old female who presents to the emergency department after having been found on the floor. Patient states she got up to go to bathroom fell did not hurt herself and then she got contacted somehow through cardiology that her defibrillator may have gone off. Patient states she does not remember going off she does not believe she lost consciousness today. Patient denies any chest pain difficulty breathing or shortness of breath. Patient states she is very anxious. Patient denies any recent fever or chills. Patient denies any abdominal pain patient has nausea vomiting. - Related Data Home Medications Medication Instructions Recorded Confirmed Albuterol Inhaler [Ventolin Hfa 2 puff INHALATION RT-QID PRN 02/10/18 12/25/24 Inhaler] PARoxetine [Paxil] 20 mg PO DAILY 09/30/23 12/25/24 Fluticasone/Umeclidin/Vilanter 1 puff INHALATION RT-DAILY 03/23/24 12/25/24 [Trelegy Ellipta 100-62.5-25] Famotidine 20 mg PO DAILY 05/16/24 12/25/24 amLODIPine [Norvasc] 2.5 mg PO DAILY 05/16/24 12/25/24 Atorvastatin [Lipitor] 80 mg PO DAILY 10/09/24 12/25/24 Levothyroxine Sodium [Synthroid] 88 mcg PO DAILY 10/09/24 12/25/24 carvediloL [Coreg] 6.25 mg PO BID 10/09/24 12/25/24 ALPRAZolam [Xanax] 2 mg PO TID PRN 12/16/24 12/25/24 HYDROcodone/APAP 5-325MG [[place] 1 tab PO Q4HR PRN 12/25/24 12/25/24 5-325] Previous Rx's Medication Instructions Recorded Furosemide [Lasix] 40 mg PO BID #60 tab 12/02/24 Dapagliflozin Propanediol [Farxiga] 5 mg PO DAILY tab 12/20/24 Nitroglycerin Sl Tabs [Nitrostat] 0.4 mg SUBLINGUAL Q5M PRN tab 12/20/24 Potassium Chloride ER [K-Dur 20] 20 meq PO TID #30 tab 12/20/24 Allergies Allergy/AdvReac Type Severity Reaction Status Date / Time elastic Allergy Rash/Hives Uncoded 12/25/24 12:30 Review of Systems ROS Statement: Those systems with pertinent positive or pertinent negative responses have been documented in the HPI. ROS Other: All systems not noted in ROS Statement are negative. Past Medical History Past Medical History: Cancer, COPD, GERD/Reflux, Hypertension, Rheumatoid Arthritis (RA), Sleep Apnea/CPAP/BIPAP, Thyroid Disorder, Vascular Disorder Additional Past Medical History / Comment(s): USES CPAP MACHINE and O2 at 2L at night as well. STATES HX OF STOMACH ULCERS. Current "rash on right foot from flip flops". PAD. History of Any Multi-Drug Resistant Organisms: None Reported Past Surgical History: AICD, Heart Catheterization, Pacemaker Additional Past Surgical History / Comment(s): Defibrillator, bilateral cateract surgery, battery change on AICD/Pacemaker 10/2023. Past Anesthesia/Blood Transfusion Reactions: No Reported Reaction, Motion Sickness Type of Cardiac Device: AICD Device Placement Date:: 2012 Past Psychological History: Anxiety, Depression Smoking Status: Former smoker Past Alcohol Use History: None Reported Past Drug Use History: None Reported - Past Family History Brother(s) Family Medical History: Deep Vein Thrombosis (DVT) General Exam - General Exam Comments Initial Comments: GENERAL: Patient is well-developed and well-nourished. Patient is nontoxic and well- hydrated and is in mild distress. ENT: Neck is soft and supple. No significant lymphadenopathy is noted. Oropharynx is clear. Moist mucous membranes. Neck has full range of motion without eliciting any pain. EYES: The sclera were anicteric and conjunctiva were pink and moist. Extraocular movements were intact and pupils were equal round and reactive to light. Eyelids were unremarkable. PULMONARY: Unlabored respirations. Good breath sounds bilaterally. No audible rales rhonchi or wheezing was noted. CARDIOVASCULAR: There is a regular rate and rhythm without any murmurs gallops or rubs. ABDOMEN: Soft and nontender with normal bowel sounds. SKIN: Skin is clear with no lesions or rashes and otherwise unremarkable. NEUROLOGIC: Patient is alert and oriented x3. Cranial nerves II through XII are grossly intact. Motor and sensory are also intact. Normal speech, volume and content. Symmetrical smile. MUSCULOSKELETAL: Normal extremities with adequate strength and full range of motion. LYMPHATICS: No significant lymphadenopathy is noted PSYCHIATRIC: Patient is anxious Limitations: no limitations Course Vital Signs 12/25/24 12/25/24 12/25/24 10:56 11:08 11:15 Pulse Rate 87 82 Respiratory 19 20 Rate Blood Pressure 109/94 O2 Sat by Pulse 95 95 Oximetry 12/25/24 12/25/24 12/25/24 11:45 11:54 12:45 Pulse Rate 79 86 Respiratory 17 20 15 Rate Blood Pressure 137/98 O2 Sat by Pulse 95 92 L Oximetry 12/25/24 14:09 Pulse Rate 72 Respiratory 17 Rate Blood Pressure 126/101 O2 Sat by Pulse 95 Oximetry Medical Decision Making - Medical Decision Making EKG is interpreted by myself. EKG shows a paced rhythm at 85 bpm parable 124 QRS 122 QT interval 394 QTc is 436. EKG shows no ST segment elevation Was pt. sent in by a medical professional or institution (Dr. PA, METAL WORKER, urgent care, hospital, or residential...) When possible be specific @ -No Did you speak to anyone other than the patient for history (EMS, parent, family, police, friend...)? What history was obtained from this source @ -No Did you review nursing and triage notes (agree or disagree)? Why? @ -I reviewed and agree with nursing and triage notes Were old charts reviewed (outside hosp., previous admission, EMS record, old EKG, old radiological studies, urgent care reports/EKG's, residential records)? Report findings @ -No old charts were reviewed Differential Diagnosis? @ -Differential Chest Pain: Stable Angina, Unstable Angina, STEMI, NSTEMI Aortic Dissection, Pneumothorax, Musculoskeletal, Esophageal Spasm GERD, Cholecystitis, Pancreatitis, Zoster, this is not meant to be an all-inclusive list. EKG interpreted by me (3pts min.). @ -As above X-rays interpreted by me (1pt min.). @ -Chest x-ray showed no acute abnormality CT interpreted by me (1pt min.). @ -None done U/S interpreted by me (1pt. min.). @ -None done What testing was considered but not performed or refused? (CT, X-rays, U/S, labs)? Why? @ -None What meds were considered but not given or refused? Why? @ -None Did you discuss the management of the patient with other professionals (professionals i.e. , PA, METAL WORKER, lab, RT, psych nurse, child protective services social worker, stained glass glazier, teacher, chief revenue officer, medical case worker)? Give summary @ -I spoke with Dr. Polk and he agreed to admit the patient admit the patient with admitting orders Was smoking cessation discussed for >3mins.? @ -No Was critical care preformed (if so, how long)? @ -35 minutes Were there social determinants of health that impacted care today? How? (Homelessness, low income, unemployed, alcoholism, drug addiction, transp ortation, low edu. Level, literacy, decrease access to med. care, snf, rehab)? @ -No Was there de-escalation of care discussed even if they declined (Discuss DNR or withdrawal of care, Hospice)? DNR status @ -No What co-morbidities impacted this encounter? (DM, HTN, Smoking, COPD, CAD, Cancer, CVA, ARF, Chemo, Hep., AIDS, mental health diagnosis, sleep apnea, morbid obesity)? @ -None Was patient admitted / discharged? Hospital course, mention meds given and route, prescriptions, significant lab abnormalities, going to OR and other pertinent info. @ -Patient's troponin was elevated, patient's sodium was low patient's potassium was low. Patient did get a bolus of fluid and had some potassium replacement. Patient will be admitted to [place] with a consult to cardiology Undiagnosed new problem with uncertain prognosis? @ -No Drug Therapy requiring intensive monitoring for toxicity (Heparin, Nitro, Insulin, Cardizem)? @ -No Were any procedures done? @ -No Diagnosis/symptom? @ -NSTEMI Acute, or Chronic, or Acute on Chronic? @ -Acute Uncomplicated (without systemic symptoms) or Complicated (systemic symptoms)? @ -Complicated Side effects of treatment? @ -No Exacerbation, Progression, or Severe Exacerbation? @ -No Poses a threat to life or bodily function? How? (Chest pain, USA, NM, pneumonia, PE, COPD, DKA, ARF, appy, cholecystitis, CVA, Diverticulitis, Homicidal, Suicidal, threat to staff... and all critical care pts) @ -Yes this could lead to dysfunction of the heart and endorgan dysfunction Diagnosis/symptom? @ -Hyponatremia Acute, or Chronic, or Acute on Chronic? @ -Acute Uncomplicated (without systemic symptoms) or Complicated (systemic symptoms)? @ -Complicated Side effects of treatment? @ -None Exacerbation, Progression, or Severe Exacerbation] @ -No Poses a threat to life or bodily function? @ -No Diagnosis/symptom? @ -Hypokalemia Acute, or Chronic, or Acute on Chronic? @ -Acute Uncomplicated (without systemic symptoms) or Complicated (systemic symptoms)? @ -Complicated Side effects of treatment? @ -None Exacerbation, Progression, or Severe Exacerbation] @ -No Poses a threat to life or bodily function? @ -No Diagnosis/symptom? @ -Defibrillator discharge Acute, or Chronic, or Acute on Chronic? @ -Acute Uncomplicated (without systemic symptoms) or Complicated (systemic symptoms)? @ -Comp Side effects of treatment? @ -None Exacerbation, Progression, or Severe Exacerbation] @ -No Poses a threat to life or bodily function? @ -Yes this can be secondary to an NM in which can lead to endorgan dysfunction - Lab Data Result diagrams: 12/25/24 11:40 12/25/24 12:37 Lab Results 12/25/24 12/25/24 12/25/24 Range/Units 11:40 11:40 12:37 WBC 8.24 (4.50-10.00) 10*3/uL RBC 4.99 (4.10-5.20) 10*6/uL Hgb 16.1 H (12.0-15.0) g/dL Hct 43.3 (37.2-46.3) % MCV 86.8 (80.0-97.0) fL MCH 32.3 H (27.0-32.0) pg MCHC 37.2 H (32.0-37.0) g/dL Plt Count 178 (140-440) 10*3/uL MPV 9.8 (9.5-12.2) fL Immature Gran % (Auto) 5.6 % Neutrophils % (Manual) 84 % Band Neuts % (Manual) 1 % Lymphocytes % (Manual) 8 % Monocytes % (Manual) 7 % Immature Gran # 0.46 H (0.00-0.04) 10*3/uL Neutrophils # (Manual) 7.00 (1.3-7.7) k/uL Lymphocytes # (Manual) 0.66 L (1.0-4.8) k/uL Monocytes # (Manual) 0.58 (0-1.0) k/uL Nucleated RBCs 0 (0-0) /100 WBC Manual Slide Review Performed PT 10.4 (10.0-12.5) sec INR 0.9 (<1.2) APTT 20.3 L (22.0-30.0) sec Sodium (137-145) mmol/L Potassium (3.5-5.1) mmol/L Chloride (98-107) mmol/L Carbon Dioxide (22-30) mmol/L Anion Gap mmol/L BUN (7-17) mg/dL Creatinine (0.52-1.04) mg/dL Est GFR (CKD-EPI)AfAm (>60 ml/min/1.73 sqM) Est GFR (CKD-EPI)NonAf (>60 ml/min/1.73 sqM) Glucose (74-99) mg/dL Calcium (8.4-10.2) mg/dL Magnesium (1.6-2.3) mg/dL Total Bilirubin (0.2-1.3) mg/dL AST (14-36) U/L ALT (4-34) U/L Alkaline Phosphatase (38-126) U/L Troponin I 0.145 H* (0.000-0.034) ng/mL Total Protein (6.3-8.2) g/dL Albumin (3.5-5.0) g/dL 12/25/24 Range/Units 12:37 WBC (4.50-10.00) 10*3/uL RBC (4.10-5.20) 10*6/uL Hgb (12.0-15.0) g/dL Hct (37.2-46.3) % MCV (80.0-97.0) fL MCH (27.0-32.0) pg MCHC (32.0-37.0) g/dL Plt Count (140-440) 10*3/uL MPV (9.5-12.2) fL Immature Gran % (Auto) % Neutrophils % (Manual) % Band Neuts % (Manual) % Lymphocytes % (Manual) % Monocytes % (Manual) % Immature Gran # (0.00-0.04) 10*3/uL Neutrophils # (Manual) (1.3-7.7) k/uL Lymphocytes # (Manual) (1.0-4.8) k/uL Monocytes # (Manual) (0-1.0) k/uL Nucleated RBCs (0-0) /100 WBC Manual Slide Review PT (10.0-12.5) sec INR (<1.2) APTT (22.0-30.0) sec Sodium 125 L (137-145) mmol/L Potassium 3.0 L (3.5-5.1) mmol/L Chloride 86 L (98-107) mmol/L Carbon Dioxide 31 H (22-30) mmol/L Anion Gap 8 mmol/L BUN 30 H (7-17) mg/dL Creatinine 0.57 (0.52-1.04) mg/dL Est GFR (CKD-EPI)AfAm >90 (>60 ml/min/1.73 sqM) Est GFR (CKD-EPI)NonAf >90 (>60 ml/min/1.73 sqM) Glucose 126 H (74-99) mg/dL Calcium 8.1 L (8.4-10.2) mg/dL Magnesium 2.2 (1.6-2.3) mg/dL Total Bilirubin 1.9 H (0.2-1.3) mg/dL AST 57 H (14-36) U/L ALT 65 H (4-34) U/L Alkaline Phosphatase 69 (38-126) U/L Troponin I (0.000-0.034) ng/mL Total Protein 5.7 L (6.3-8.2) g/dL Albumin 3.4 L (3.5-5.0) g/dL Disposition Clinical Impression: Elevated troponin, Defibrillator discharge, Hyponatremia, Hypokalemia Disposition: ADMITTED IP TO THIS [facility] Time of Disposition: 14:30
[2024-12-25] MEDS ORDERED: NITROGLYCERIN SL TABS 0.4 MG TAB SUBLINGUAL PRN (14:31)
[2024-12-25] MEDS: POTASSIUM CHLORIDE 20 MEQ in WATER FOR INJECTION 1 100ML.BAG IVPB STA (15:00)
[2024-12-25] MEDS: POTASSIUM CHLORIDE ER 20 MEQ TAB.ER PO STA (15:51)
[2024-12-25] MEDS: POTASSIUM BICARBONATE/CIT AC 20 MEQ TABLET.EFF PO ONE (15:53)
[2024-12-25] MEDS: NITROGLYCERIN OINT 1 INCH/GM PACKET TOPICAL SCH (17:18)
[2024-12-25] MEDS: ALBUTEROL NEBULIZED 2.5 MG/3 ML INHALATION STA (17:56)
[2024-12-25] MEDS ORDERED: HYDROcodone/APAP 5-325MG 1 EACH TAB PO PRN (20:50)
[2024-12-25] MEDS: POTASSIUM CHLORIDE ER 20 MEQ TAB.ER PO SCH (21:10)
--- NOTE | 2024-12-26 02:42 | HP ---
HISTORY AND PHYSICAL CHIEF COMPLAINT: Syncope. HISTORY OF PRESENT ILLNESS: This is another recent admission for this 69-year-old white female who has been in and out of the hospital lately with various complaints usually related to shortness of breath and stridor. She has a history of carcinoma of the larynx. There has been no evidence of recurrence, but she continues to feel that there is something going on and this frequent being in the hospital, ERs and my office. Today, she apparently had a syncopal episode. Somebody saw her fall down and ambulance was summoned. Apparently, she has a defibrillator and it was thought that this may have gone off. In the emergency room, her potassium and sodium were also low. In the emergency room, she was awake and semi-alert. REVIEW OF SYSTEMS: She has no idea what happened. She has no headache, chest pain, focal neurologic deficits, etc. Past medical history, family history, personal and social histories are all otherwise unchanged from her recent admitting and discharge summaries. PHYSICAL EXAMINATION: VITAL SIGNS: Blood pressure is 124/76 with a pulse of 80, respirations of 34, and she is afebrile. GENERAL: She appeared to be pale and chronically ill. HEAD, EARS, EYES, NOSE, MOUTH AND THROAT: Normal. Carotids are normal. CHEST: Clear. CARDIAC: Demonstrated what sounds like sinus rhythm. ABDOMEN: Soft and nontender. EXTREMITIES: Normal. NEURO: Neurologically, she is intact. She is admitted to the hospital. DIAGNOSES: 1. Syncope, possibly related cardiac arrhythmia, interrupted with ICD. 2. History of coronary artery disease. 3. History of carcinoma of the larynx. 4. Anxiety. PLAN: 1. Bedrest. 2. IV fluids. 3. Serial EKGs and enzymes. 4. Consult with Cardiology. MMODL / IJN: [id number] /
[2024-12-26] MEDS: ALBUTEROL NEBULIZED 2.5 MG/3 ML INHALATION PRN (04:24)
[2024-12-26] MEDS: LEVOTHYROXINE 88 MCG TAB PO SCH (06:33)
[2024-12-26] MEDS: SYMBICORT 160-4.5 MCG INHALER INHALATION SCH (09:25)
[2024-12-26] MEDS: TIOTROPIUM 2.5 MCG INHALER INHALATION SCH (09:25)
[2024-12-26] MEDS: DAPAGLIFLOZIN PROPANEDIOL 5 MG TABLET PO SCH (10:13)
[2024-12-26] MEDS: ATORVASTATIN 80 MG TAB PO SCH (10:13)
[2024-12-26] MEDS: FAMOTIDINE 20 MG TAB PO SCH (10:14)
[2024-12-26] MEDS: amLODIPine 2.5 MG TAB PO SCH (10:14)
[2024-12-26] MEDS: FUROSEMIDE 40 MG TAB PO SCH (10:14)
[2024-12-26] MEDS: PARoxetine 20 MG TAB PO SCH (10:14)
[2024-12-26] MEDS: ASPIRIN 325 MG TAB PO SCH (10:14)
[2024-12-26 10:32] LABS: HCT 42.4 % (37.2-46.3); HGB 15.3 g/dL (12.0-15.0); MCH 32.1 pg (27.0-32.0); MCHC 36.1 g/dL (32.0-37.0); MCV 88.9 fL (80.0-97.0); Platelet Count 170 10*3/uL (140-440); RBC 4.77 10*6/uL (4.10-5.20); RDW 14.5 % (11.5-14.5); WBC 11.86 10*3/uL (4.50-10.00)
[2024-12-26 10:43] LABS: African American GFR (CKD) >90 (>60 ml/min/1.73 sqM); Anion Gap 9 mmol/L; Blood Urea Nitrogen 26 mg/dL (7-17); Calcium 8.5 mg/dL (8.4-10.2); Carbon Dioxide 30 mmol/L (22-30); Chloride 88 mmol/L (98-107); Glucose 105 mg/dL (74-99); Non-African American GFR(CKD) >90 (>60 ml/min/1.73 sqM); Potassium 3.2 mmol/L (3.5-5.1); Sodium 127 mmol/L (137-145)
--- NOTE | 2024-12-26 11:30 | P.CRDCN ---
History of Present Illness Consult date: 12/26/24 Reason for Consult (text): NSTEMI, defibrillator discharge History of present illness: This is a 69-year-old female patient of Dr. Greene with past medical history of nonischemic cardiomyopathy status post ICD, hypertension, dyslipidemia, tobacco use and dependence, PAT. We have been asked to evaluate the patient for defibrillator discharge and NSTEMI. Patient's states she came into the hospital because she was not able to walk. She stood to walk and she started falling. She denies loss of consciousness. Regarding the defibrillator discharge, patient does not recall having a shock from her defibrillator. She does not recall ever having a shock from her defibrillator. Patient apparently received a call from cardiology that the defibrillator went off. Patient was hospitalized earlier this month and was seen by cardiology at that time and also had elevated troponin with a flat pattern. Apparently shortness of breath has been going on for several weeks. Patient denies chest pain chest pressure or chest tightness. Blood pressure 101/68, heart rate 80, pulse ox 93% on room air. Patient has been afebrile. Device interrogation performed in October of this year revealed 92% left bundle pacing and no underlying arrhythmias. -EKG: Ventricularly paced rhythm. -Chest x-ray: No acute process. -Laboratory studies: Troponin 0.145, 0.147, 0.14. WBC 11.8, hemoglobin 15.3. Sodium 127 up from 125, potassium 3.2, BUN 26 creatinine 0.5. AST 57, ALT 65. -Home cardiac medications: Amlodipine 2.5 mg daily, atorvastatin 80 mg daily, Coreg 6.25 mg twice daily, Farxiga 5 mg daily, Lasix 40 mg twice daily, Nitrostat as needed, potassium chloride 20 mill equivalents 3 times daily. -Echocardiogram performed on 12/18/2024 revealed moderate severe global hypokinesis of the left ventricle with EF 35 to 40%, wire noted in the right ventricle. Mild mitral and tricuspid regurgitation. -Lexiscan Cardiolite stress test performed in the office on 09/27/2019 was inconclusive EKG part of the stress test due to baseline EKG abnormalities. Normal myocardial perfusion and function. -Cardiac catheterization in 2011 revealed EF 25%, normal coronary arteries. -09/30/2023 was a generator replacement for biventricular ICD, [employer]. Review Of Systems: At the time of my exam: CONSTITUTIONAL: Denies fever or chills. Reports fatigue and weakness. HEENT: Denies blurred vision, vision changes, or eye pain. Denies hemoptysis CARDIOVASCULAR: Denies chest pain. Denies orthopnea. Denies PND. Denies palpitations RESPIRATORY: Denies shortness of breath. GASTROINTESTINAL: Denies abdominal pain. Denies nausea or vomiting. HEMATOLOGIC: Denies bleeding disorders. GENITOURINARY: Denies any blood in urine. SKIN: Denies puritis. Denies rash. Physical examination: Gen: This is 69-year-old female in no acute distress. VS: reviewed HEENT: Head is atraumatic, normocephalic. Pupils equal, round. Sclerae is anicteric. NECK: Supple. No JVD. LUNGS: Bilateral rhonchi. No intercostal retractions. HEART: Regular rate and rhythm. No murmur. ABDOMEN: Soft No tenderness. EXTREMITIES: No pedal edema. No calf tenderness. NEUROLOGICAL: Patient is awake, alert and oriented x3. Assessment: Possible ICD discharge Elevated troponin, flat pattern not indicative of acute coronary syndrome Hospitalization in early December with elevated troponins as well Nonischemic cardiomyopathy status post ICD Chronic systolic heart failure Hypertension Dyslipidemia Tobacco use and dependence PAT Plan: Resume patient's home cardiac medications Discontinue Nitropaste Obtain interrogation of ICD No need to repeat echocardiogram as this was performed on 12/18 Further recommendations to follow based upon clinical course Thank you kindly for this consultation. Nurse practitioner note has been reviewed, I agree with documented findings and plan of care. Patient was seen and examined. Past Medical History Past Medical History: Cancer, COPD, GERD/Reflux, Hypertension, Rheumatoid Arthritis (RA), Sleep Apnea/CPAP/BIPAP, Thyroid Disorder, Vascular Disorder Additional Past Medical History / Comment(s): USES CPAP MACHINE and O2 at 2L at night as well. STATES HX OF STOMACH ULCERS. Current "rash on right foot from flip flops". PAD. Throat cancer History of Any Multi-Drug Resistant Organisms: None Reported Past Surgical History: AICD, Heart Catheterization, Pacemaker Additional Past Surgical History / Comment(s): Defibrillator, bilateral cateract surgery, battery change on AICD/Pacemaker 10/2023. Past Anesthesia/Blood Transfusion Reactions: No Reported Reaction, Motion Sickness Type of Cardiac Device: AICD Device Placement Date:: 2012 Past Psychological History: Anxiety, Depression Additional Psychological History / Comment(s): Hospitalized February 2023, states almost had a mental breakdown. Smoking Status: Former smoker Past Alcohol Use History: None Reported Additional Past Alcohol Use History / Comment(s): STARTED SMOKING AT AGE 15, SMOKES <1/2 PPD, TRYING TO QUIT. RECOVERING ALCOHOLIC, NO ALCOHOL SINCE 1989. Past Drug Use History: None Reported - Past Family History Brother(s) Family Medical History: Deep Vein Thrombosis (DVT) Medications and Allergies Home Medications Medication Instructions Recorded Confirmed Type Albuterol Inhaler [Ventolin Hfa 2 puff INHALATION RT-QID PRN 02/10/18 12/25/24 History Inhaler] PARoxetine [Paxil] 20 mg PO DAILY 09/30/23 12/25/24 History Fluticasone/Umeclidin/Vilanter 1 puff INHALATION RT-DAILY 03/23/24 12/25/24 History [Trelegy Ellipta 100-62.5-25] Famotidine 20 mg PO DAILY 05/16/24 12/25/24 History amLODIPine [Norvasc] 2.5 mg PO DAILY 05/16/24 12/25/24 History Atorvastatin [Lipitor] 80 mg PO DAILY 10/09/24 12/25/24 History Levothyroxine Sodium [Synthroid] 88 mcg PO DAILY 10/09/24 12/25/24 History carvediloL [Coreg] 6.25 mg PO BID 10/09/24 12/25/24 History Furosemide [Lasix] 40 mg PO BID #60 tab 12/02/24 12/25/24 Rx ALPRAZolam [Xanax] 2 mg PO TID PRN 12/16/24 12/25/24 History Dapagliflozin Propanediol [Farxiga] 5 mg PO DAILY tab 12/20/24 12/25/24 Rx Nitroglycerin Sl Tabs [Nitrostat] 0.4 mg SUBLINGUAL Q5M PRN tab 12/20/24 12/25/24 Rx Potassium Chloride ER [K-Dur 20] 20 meq PO TID #30 tab 12/20/24 12/25/24 Rx HYDROcodone/APAP 5-325MG [[place] 1 tab PO Q4HR PRN 12/25/24 12/25/24 History 5-325] Allergies Allergy/AdvReac Type Severity Reaction Status Date / Time elastic Allergy Rash/Hives Uncoded 12/25/24 12:30 Physical Exam Vitals: Vital Signs Temp Pulse Pulse Resp BP BP Pulse Ox 12/26/24 04:37 75 12/26/24 04:24 76 12/26/24 04:03 70 18 136/95 93 L 12/26/24 00:10 70 16 120/83 93 L 12/25/24 21:13 98.0 F 75 16 122/83 95 12/25/24 16:45 97.9 F 86 18 158/98 95 12/25/24 16:42 85 17 97 12/25/24 16:02 18 12/25/24 15:53 76 20 145/117 96 12/25/24 14:09 72 17 126/101 95 12/25/24 12:45 15 12/25/24 11:54 86 20 92 L 12/25/24 11:45 79 17 137/98 95 12/25/24 11:15 20 12/25/24 11:08 82 95 12/25/24 10:56 87 19 109/94 95 Intake and Output 12/25/24 12/26/24 12/26/24 22:59 06:59 14:59 Intake Total 240 Output Total 100 Balance 240 -100 Intake: Oral 240 Output: Urine 100 Other: Weight 68.039 kg 68 kg Results 12/26/24 10:23 12/26/24 10:23 Cardiac Enzymes 12/25/24 12/25/24 12/25/24 Range/Units 12:37 12:37 16:35 AST 57 H (14-36) U/L Troponin I 0.145 H* 0.147 H* (0.000-0.034) ng/mL 12/25/24 Range/Units 18:21 AST (14-36) U/L Troponin I 0.140 H* (0.000-0.034) ng/mL Coagulation 12/25/24 Range/Units 11:40 PT 10.4 (10.0-12.5) sec APTT 20.3 L (22.0-30.0) sec CBC 12/25/24 Range/Units 11:40 WBC 8.24 (4.50-10.00) 10*3/uL RBC 4.99 (4.10-5.20) 10*6/uL Hgb 16.1 H (12.0-15.0) g/dL Hct 43.3 (37.2-46.3) % Plt Count 178 (140-440) 10*3/uL Comprehensive Metabolic Panel 12/25/24 Range/Units 12:37 Sodium 125 L (137-145) mmol/L Potassium 3.0 L (3.5-5.1) mmol/L Chloride 86 L (98-107) mmol/L Carbon Dioxide 31 H (22-30) mmol/L BUN 30 H (7-17) mg/dL Creatinine 0.57 (0.52-1.04) mg/dL Glucose 126 H (74-99) mg/dL Calcium 8.1 L (8.4-10.2) mg/dL AST 57 H (14-36) U/L ALT 65 H (4-34) U/L Alkaline Phosphatase 69 (38-126) U/L Total Protein 5.7 L (6.3-8.2) g/dL Albumin 3.4 L (3.5-5.0) g/dL Current Medications Generic Name Dose Route Start Last Admin Trade Name Freq PRN Reason Stop Dose Admin Hydrocodone Bitart/Acetaminophen 1 each 12/25/24 20:50 Hydrocodone/Apap 5-325mg 1 Each Tab PO Q4HR PRN Pain Albuterol Sulfate 2.5 mg 12/25/24 20:50 12/26/24 04:24 Albuterol Nebulized 2.5 Mg/3 Ml INHALATION 2.5 mg RT-QID PRN Administration Shortness Of Breath Alprazolam 2 mg 12/25/24 20:50 12/26/24 04:07 Alprazolam 1 Mg Tab PO 2 mg TID PRN Administration Anxiety Amlodipine Besylate 2.5 mg 12/26/24 09:00 Amlodipine 2.5 Mg Tab PO DAILY [facility] Aspirin 325 mg 12/26/24 09:00 Aspirin 325 Mg Tab PO DAILY [facility] Atorvastatin Calcium 80 mg 12/26/24 09:00 Atorvastatin 80 Mg Tab PO DAILY [facility] Budesonide/Formoterol Fumarate 2 puff 12/26/24 08:00 Symbicort 160-4.5 Mcg Inhaler INHALATION RT-BID [facility] Carvedilol 6.25 mg 12/25/24 21:00 12/26/24 06:33 Carvedilol 6.25 Mg Tab PO 6.25 mg AC-BID [facility]IRIAN Administration Dapagliflozin 5 mg 12/26/24 09:00 Dapagliflozin Propanediol 5 Mg Tablet PO DAILY [facility] Famotidine 20 mg 12/26/24 09:00 Famotidine 20 Mg Tab PO DAILY [facility] Furosemide 40 mg 12/26/24 09:00 Furosemide 40 Mg Tab PO BID@0900,1600 [facility] Levothyroxine Sodium 88 mcg 12/26/24 06:30 12/26/24 06:33 Levothyroxine 88 Mcg Tab PO 88 mcg 0630 MIRIAN Administration Nitroglycerin 0.4 mg 12/25/24 14:31 Nitroglycerin Sl Tabs 0.4 Mg Tab SUBLINGUAL Q5M PRN Chest Pain Nitroglycerin 1 inch 12/25/24 18:00 12/26/24 06:33 Nitroglycerin Oint 1 Inch/Gm Packet TOPICAL 1 inch Q6HR [facility]IRIAN Administration Paroxetine HCl 20 mg 12/26/24 09:00 Paroxetine 20 Mg Tab PO DAILY [facility] Potassium Chloride 20 meq 12/25/24 22:00 12/25/24 21:10 Potassium Chloride Er 20 Meq Tab.Er PO Not Given TID [facility] Tiotropium [place] 2 puff 12/26/24 08:00 Tiotropium 2.5 Mcg Inhaler INHALATION RT-DAILY [facility] Intake and Output 12/25/24 12/26/24 12/26/24 22:59 06:59 14:59 Intake Total 240 Output Total 100 Balance 240 -100 Intake: Oral 240 Output: Urine 100 Other: Weight 68.039 kg 68 kg 12/25/24 11:40 12/25/24 12:37
[2024-12-26 15:46] LABS: Cholesterol 220.00 mg/dL (0.00-200.00); HDL Cholesterol 47.00 mg/dL (40.00-60.00)
[2024-12-26 15:49] LABS: LDL Cholesterol,Calculated 111.8 mg/dL (0.0-131.0); Triglycerides 306.00 mg/dL (0.00-149.00); VLDL Calculation 61.20 mg/dL (5.00-40.00)
--- NOTE | 2024-12-26 23:03 | PN ---
PROGRESS NOTE DATE OF SERVICE: 12/26/2024 CHIEF COMPLAINT: Acute coronary syndrome. HISTORY OF PRESENT ILLNESS: This lady is stable and doing fairly well. She denies chest pain. All of her cardiac enzymes have been elevated, however. She is being evaluated by Cardiology. She does not know what happened, but it is reported that her defibrillator was activated. PHYSICAL EXAMINATION: GENERAL: She is awake and alert. CHEST: Clear. CARDIAC: Sounds normal. There are no murmurs or extra sounds. ABDOMEN: Soft, nontender. IMPRESSION: 1. Acute myocardial infarction. 2. Likely ventricular arrhythmia. 3. Carcinoma of the larynx. PLAN: Cardiology will be in interrogating her ICD today. In the meantime, her clinical picture and vital signs will be monitored. MMODL / IJN: [id number] /
--- NOTE | 2024-12-27 12:22 | P.PN ---
Subjective Progress Note Date: 12/27/24 Reason for Consult (text): NSTEMI, defibrillator discharge History of present illness: This is a 69-year-old female patient of Dr. Greene with past medical history of nonischemic cardiomyopathy status post ICD, hypertension, dyslipidemia, tobacco use and dependence, PAT. We have been asked to evaluate the patient for defibrillator discharge and NSTEMI. Patient's states she came into the hospital because she was not able to walk. She stood to walk and she started falling. She denies loss of consciousness. Regarding the defibrillator d ischarge, patient does not recall having a shock from her defibrillator. She does not recall ever having a shock from her defibrillator. Patient apparently received a call from cardiology that the defibrillator went off. Patient was hospitalized earlier this month and was seen by cardiology at that time and also had elevated troponin with a flat pattern. Apparently shortness of breath has been going on for several weeks. Patient denies chest pain chest pressure or chest tightness. Blood pressure 101/68, heart rate 80, pulse ox 93% on room air. Patient has been afebrile. Device interrogation performed in October of this year revealed 92% left bundle pacing and no underlying arrhythmias. -EKG: Ventricularly paced rhythm. -Chest x-ray: No acute process. -Laboratory studies: Troponin 0.145, 0.147, 0.14. WBC 11.8, hemoglobin 15.3. Sodium 127 up from 125, potassium 3.2, BUN 26 creatinine 0.5. AST 57, ALT 65. -Home cardiac medications: Amlodipine 2.5 mg daily, atorvastatin 80 mg daily, Coreg 6.25 mg twice daily, Farxiga 5 mg daily, Lasix 40 mg twice daily, Nitrostat as needed, potassium chloride 20 mill equivalents 3 times daily. -Echocardiogram performed on 12/18/2024 revealed moderate severe global hypokinesis of the left ventricle with EF 35 to 40%, wire noted in the right johann tricle. Mild mitral and tricuspid regurgitation. -Lexiscan Cardiolite stress test performed in the office on 09/27/2019 was inconclusive EKG part of the stress test due to baseline EKG abnormalities. Normal myocardial perfusion and function. -Cardiac catheterization in 2011 revealed EF 25%, normal coronary arteries. -09/30/2023 was a generator replacement for biventricular ICD, [employer]. 12/27/2024 Yesterday, NTP was discontinued. Interrogation reviewed. Patient was contacted by the ICD company regarding lead impairment. No shock was given. Patient denies chest pain or shortness of breath today. Blood pressure 117/83, heart rate 88, pulse ox 95% on 2 L nasal cannula. No repeat blood work today. Physical examination: Gen: This is 69-year-old female in no acute distress. VS: reviewed HEENT: Head is atraumatic, normocephalic. Pupils equal, round. Sclerae is anicteric. NECK: Supple. No JVD. LUNGS: Bilateral rhonchi. No intercostal retractions. HEART: Regular rate and rhythm. No murmur. ABDOMEN: Soft No tenderness. EXTREMITIES: No pedal edema. No calf tenderness. NEUROLOGICAL: Patient is awake, alert and oriented x3. Assessment: Possible ICD discharge has been ruled out by ICD interrogation Lead impairment-we will check office records on previous interrogations Elevated troponin, flat pattern not indicative of acute coronary syndrome Hospitalization in early December with elevated troponins as well Nonischemic cardiomyopathy status post ICD Chronic systolic heart failure Hypertension Dyslipidemia Tobacco use and dependence PAT Plan: Contineu patient's home cardiac medications No need to repeat echocardiogram as this was performed on 12/18 Further recommendations to follow based upon clinical course Nurse practitioner note has been reviewed, I agree with documented findings and plan of care. Patient was seen and examined. Objective - Vital Signs Vital signs: Vital Signs Temp 97.8 F 12/26/24 20:30 Pulse 84 12/27/24 05:17 Resp 18 12/27/24 05:17 BP 136/86 12/27/24 05:17 Pulse Ox 94 L 12/27/24 05:17 FiO2 Intake & Output 12/26/24 12/27/24 12/27/24 18:59 06:59 18:59 Intake Total 0 Output Total 600 Balance -600 Intake: Oral 0 Output: Urine 600 Other: Voiding Method External Catheter External Catheter # Voids 2 - Labs CBC & Chem 7: 12/26/24 10:23 12/26/24 10:23 Labs: Abnormal Lab Results - Last 24 Hours (Table) 12/26/24 12/26/24 Range/Units 10:23 10:23 WBC 11.86 H (4.50-10.00) 10*3/uL Hgb 15.3 H (12.0-15.0) g/dL MCH 32.1 H (27.0-32.0) pg Sodium 127 L (137-145) mmol/L Potassium 3.2 L (3.5-5.1) mmol/L Chloride 88 L (98-107) mmol/L BUN 26 H (7-17) mg/dL Creatinine 0.51 L (0.52-1.04) mg/dL Glucose 105 H (74-99) mg/dL Triglycerides 306.00 H (0.00-149.00) mg/dL Cholesterol 220.00 H (0.00-200.00) mg/dL VLDL Cholesterol, Calc 61.20 H (5.00-40.00) mg/dL
--- NOTE | 2024-12-27 15:15 | CDI ---
Documentation Clarification Form Date: 12/27/2024 02:49:02 PM From: Mera Cho RN CCDS Phone: [phone] Admit Date: 12/25/2024 02:37:00 PM Patient Name: Haylie Yu Visit Number: [id number] Discharge Date: ATTENTION: The Clinical Documentation Specialists (CDI) and [facility] Coding Staff appreciate your assistance in clarifying documentation. Please respond to the clarification below the line at the bottom and electronically sign. The CDI & [facility] Coding staff will review the response and follow-up if needed. Please note: Queries are made part of the Legal Health Record. If you have any questions, please contact the author of this message via ITS. Doctor: Tani Emmanuel Conflicting documentation has been found in the medical record. As attending physician, please provide clarification. Acute myocardial infarction, 12/26, Medicine note. Elevated troponin, flat pattern not indicative of acute coronary syndrome, 12/26 & 12/27, Cardiology notes History/Risk Factors: 69 year old female presents to the ED after she was not able to walk, she stood and started falling. Denies loss of consciousness. Patient does not recall having a shock from her defibrillator and doesnt recall ever having a shock from her defibrillator. Patient apparently received a call from cardiology that the defibrillator went off. Medical History: Nonischemic cardiomyopathy s/p ICD, chronic systolic CHF, HTN, Dyslipidemia and Tobacco use and dependence. 12/27, Cardiology note Clinical Indicators: 12/25 EKG: Electronic ventricular pacemaker, Abnormal Rhythm ECG 12/26 EKG: Electronic ventricular pacemaker, Marked ST Elevation consider lateral injury. Marked ST Depression, Consider Subenocardial Injury Acute VT Troponin 12/25: 0.145; 0.0140 Cardiology Note 12/27: Device interrogation performed in October of this year revealed 92% left bundle pacing and no underlying arrhythmias. 12/27, Yesterday, NTP was discontinued. Interrogation reviewed. Patient was contacted by the ICD company regarding lead impairment. Treatment: 12/25 Nitro Bid Oint Topical Q6H, 12/25 Potassium Chl IVPB x1; 12/25 K dur 20 meq TID, 12/25 Aspirin PO X2, 6 Please clarify which diagnosis is most appropriate: [ ] Acute myocardial infarction [ ] Acute myocardial infarction ruled out [ ] Other (please specify) [ ] Unable to determine (Template Last Revised: September 2020) MTDD
--- NOTE | 2024-12-28 04:39 | PN ---
PROGRESS NOTE CHIEF COMPLAINT: Syncopal episode and elevated serum troponins. HISTORY OF PRESENT ILLNESS: This lady is fairly stable. No further cardiac intervention is planned. She is confused. This may be related to her low sodium and potassium. However, it could be related to medications too. PHYSICAL EXAMINATION: GENERAL: She is awake and alert, but confused. She seems delirious. She is pale. CHEST: Clear. CARDIAC: Normal. IMPRESSION: 1. Syncopal episode. 2. Possible cardiac arrhythmia. 3. Elevated troponins. PLAN: 1. She wants to be a DNR and this is approved. 2. Physical therapy. 3. Continue efforts to restore her sodium and potassium. 4. Stop analgesics and tranquilizers to see if it improves her cognitive function. MMODL / IJN: [id number] /
[2024-12-28 10:33] LABS: Basophils # (A) 0.09 10*3/uL (0.00-0.10); Basophils % (A) 0.7 %; Eosinophils # (A) 0.00 10*3/uL (0.04-0.35); Eosinophils % (A) 0.0 %; HCT 43.1 % (37.2-46.3); HGB 15.6 g/dL (12.0-15.0); Lymphocytes # (A) 0.40 10*3/uL (0.90-5.00); Lymphocytes % (A) 3.2 %; MCH 32.3 pg (27.0-32.0); MCHC 36.2 g/dL (32.0-37.0); MCV 89.2 fL (80.0-97.0); Monocytes # (A) 0.83 10*3/uL (0.20-1.00); Monocytes % (A) 6.6 %; Neutrophils # (A) 10.89 10*3/uL (1.80-7.70); Neutrophils % (A) 85.9 %; Platelet Count 178 10*3/uL (140-440); RBC 4.83 10*6/uL (4.10-5.20); RDW 14.6 % (11.5-14.5); WBC 12.66 10*3/uL (4.50-10.00)
[2024-12-28 10:46] LABS: African American GFR (CKD) 88 (>60 ml/min/1.73 sqM); Anion Gap 12 mmol/L; Blood Urea Nitrogen 40 mg/dL (7-17); Calcium 8.9 mg/dL (8.4-10.2); Carbon Dioxide 33 mmol/L (22-30); Chloride 81 mmol/L (98-107); Glucose 145 mg/dL (74-99); Magnesium 2.1 mg/dL (1.6-2.3); Non-African American GFR(CKD) 76 (>60 ml/min/1.73 sqM); Sodium 126 mmol/L (137-145)
[2024-12-28 10:53] LABS: Potassium 2.7 mmol/L (3.5-5.1)
[2024-12-28] MEDS ORDERED: Potassium Replacement Protocol 1 EACH MISC MISCELLANE PRN (11:08)
[2024-12-28] MEDS: POTASSIUM CHLORIDE ER 20 MEQ TAB.ER PO SCH (11:35)
--- NOTE | 2024-12-28 11:50 | MISC ---
MISCELLANOUS REPORT Acute myocardial infarction. MMODL / IJN: [id number] /
--- NOTE | 2024-12-28 13:08 | P.PN ---
Subjective Progress Note Date: 12/28/24 Reason for Consult (text): NSTEMI, defibrillator discharge History of present illness: This is a 69-year-old female patient of Dr. Greene with past medical history of nonischemic cardiomyopathy status post ICD, hypertension, dyslipidemia, tobacco use and dependence, PAT. We have been asked to evaluate the patient for defibrillator discharge and NSTEMI. Patient's states she came into the hospital because she was not able to walk. She stood to walk and she started falling. She denies loss of consciousness. Regarding the defibrillator d ischarge, patient does not recall having a shock from her defibrillator. She does not recall ever having a shock from her defibrillator. Patient apparently received a call from cardiology that the defibrillator went off. Patient was hospitalized earlier this month and was seen by cardiology at that time and also had elevated troponin with a flat pattern. Apparently shortness of breath has been going on for several weeks. Patient denies chest pain chest pressure or chest tightness. Blood pressure 101/68, heart rate 80, pulse ox 93% on room air. Patient has been afebrile. Device interrogation performed in October of this year revealed 92% left bundle pacing and no underlying arrhythmias. -EKG: Ventricularly paced rhythm. -Chest x-ray: No acute process. -Laboratory studies: Troponin 0.145, 0.147, 0.14. WBC 11.8, hemoglobin 15.3. Sodium 127 up from 125, potassium 3.2, BUN 26 creatinine 0.5. AST 57, ALT 65. -Home cardiac medications: Amlodipine 2.5 mg daily, atorvastatin 80 mg daily, Coreg 6.25 mg twice daily, Farxiga 5 mg daily, Lasix 40 mg twice daily, Nitrostat as needed, potassium chloride 20 mill equivalents 3 times daily. -Echocardiogram performed on 12/18/2024 revealed moderate severe global hypokinesis of the left ventricle with EF 35 to 40%, wire noted in the right johann tricle. Mild mitral and tricuspid regurgitation. -Lexiscan Cardiolite stress test performed in the office on 09/27/2019 was inconclusive EKG part of the stress test due to baseline EKG abnormalities. Normal myocardial perfusion and function. -Cardiac catheterization in 2011 revealed EF 25%, normal coronary arteries. -09/30/2023 was a generator replacement for biventricular ICD, [employer]. 12/27/2024 Yesterday, NTP was discontinued. Interrogation reviewed. Patient was contacted by the ICD company regarding lead impedance. No shock was given. Patient denies chest pain or shortness of breath today. Blood pressure 117/83, heart rate 88, pulse ox 95% on 2 L nasal cannula. No repeat blood work today. 12/28/2024 Patient seen and examined. Previous interrogation of ICD obtained from the office which did show some lead impedance but is more so on the most recent study done this week. We will ask for Dr. Greene to review reports. Patient denies chest pain or shortness of breath. She still states she feels weak. Her states she has not been eating very much. Blood pressure 108/76, heart rate 78, pulse ox 93% on 2 L nasal cannula. Repeat blood work reveals WBC 12.6, hemoglobin 15.6, sodium 126, potassium 2.7, BUN 40 and creatinine 0.8. Triglycerides 306, cholesterol 220, LDL 111. Physical examination: Gen: This is 69-year-old female in no acute distress. VS: reviewed HEENT: Head is atraumatic, normocephalic. Pupils equal, round. Sclerae is anicteric. NECK: Supple. No JVD. LUNGS: Bilateral rhonchi. No intercostal retractions. HEART: Regular rate and rhythm. No murmur. ABDOMEN: Soft No tenderness. EXTREMITIES: No pedal edema. No calf tenderness. NEUROLOGICAL: Patient is awake, alert and oriented x3. Assessment: Possible ICD discharge has been ruled out by ICD interrogation Lead impedance Elevated troponin, flat pattern not indicative of acute coronary syndrome Hospitalization in early December with elevated troponins as well Nonischemic cardiomyopathy status post ICD Chronic systolic heart failure Hypertension Dyslipidemia Tobacco use and dependence PAT Plan: Continue patient's home cardiac medications No need to repeat echocardiogram as this was performed on 12/[address] Greene to review lead impedance on old interrogation compared to new completed this week Dance further recommendations to follow based upon clinical course Nurse practitioner note has been reviewed, I agree with documented findings and plan of care. Patient was seen and examined. Objective - Vital Signs Vital signs: Vital Signs Temp 97.3 F L 12/27/24 12:00 Pulse 65 12/28/24 04:00 Resp 16 12/28/24 04:00 BP 101/71 12/28/24 04:00 Pulse Ox 90 L 12/28/24 04:00 FiO2 Intake & Output 12/27/24 12/28/24 12/28/24 18:59 06:59 18:59 Intake Total 540 Output Total 3400 Balance -2860 Weight 667 kg Intake: Oral 540 Output: Urine 3400 Straight 1100 Other: Voiding Method External Catheter Indwelling Catheter - Labs CBC & Chem 7: 12/28/24 10:16 12/28/24 10:16
--- NOTE | 2024-12-28 14:27 | DS ---
DISCHARGE SUMMARY CHIEF COMPLAINT: Cardiac arrhythmia with discharge of ICD. HISTORY OF PRESENT ILLNESS AND PHYSICAL EXAMINATION: Details of this lady's history and physical can be found in the initial workup. LABORATORY STUDIES: While she is in a hospital, she had laboratory studies, details of which can be found in the laboratory section of her chart. COURSE IN THE HOSPITAL: After admission, she was placed on bedrest, started intravenous fluids and telemetry. Her troponins were elevated. She was seen and followed by Cardiology. She had no further rhythm problems and there was no further intervention plan. In the hospital, she was somewhat lethargic and her pain medications and tranquilizers were stopped and she was starting to become more alert. She still was slightly lethargic and weak and was not felt that she was able to go home. Arrangements were made for her to be transferred to [facility] for physical therapy and rehab. FINAL DIAGNOSES: 1. Cardiac arrhythmia with syncope. 2. Discharge of ICD. 3. Coronary artery disease. 4. Chronic obstructive pulmonary disease. 5. History of carcinoma of the larynx. 6. Delirium. 7. General debility and weakness. OPERATIONS: None. CONSULTATIONS: Cardiology. MMODL / IJN: [id number] /
--- NOTE | 2024-12-28 23:41 | XR ---
EXAM: XR Chest, 1 View CLINICAL HISTORY: increased O2 demand TECHNIQUE: Frontal view of the chest. COMPARISON: No relevant prior studies available. FINDINGS: Lungs: Airspace opacities at the lung bases. Pleural space: No pleural effusion. No pneumothorax. Heart: Unremarkable. No cardiomegaly. Tubes, lines and devices: Multiple pacemaker leads present. IMPRESSION: Airspace opacities at the lung bases. Aspiration or pneumonia most likely.
--- NOTE | 2024-12-29 01:15 | PN ---
PROGRESS NOTE DATE OF SERVICE: 12/28/2024 CHIEF COMPLAINT: Syncope following discharge of ICD. HISTORY OF PRESENT ILLNESS: This lady seems to be doing fairly well. She is a little bit more alert and awake today since her analgesics and tranquilizers were stopped. She is still very weak. intermediate placement is being sought. PHYSICAL EXAMINATION: GENERAL: She is slightly pale. CHEST: Clear. CARDIAC: Normal. ABDOMEN: Soft, nontender. IMPRESSION: 1. Discharge of ICD. 2. Coronary artery disease. 3. Chronic obstructive pulmonary disease. 4. Cancer of the larynx. PLAN: Work on rehab. She may be going to a long term soon. MMODL / IJN: [id number] /
[2024-12-29 08:52] LABS: African American GFR (CKD) 76 (>60 ml/min/1.73 sqM); Anion Gap 14 mmol/L; Blood Urea Nitrogen 39 mg/dL (7-17); Calcium 9.1 mg/dL (8.4-10.2); Carbon Dioxide 23 mmol/L (22-30); Chloride 90 mmol/L (98-107); Glucose 132 mg/dL (74-99); Non-African American GFR(CKD) 65 (>60 ml/min/1.73 sqM); Potassium 4.7 mmol/L (3.5-5.1); Sodium 127 mmol/L (137-145)
[2024-12-29 10:03] LABS: Basophils # (A) 0.10 10*3/uL (0.00-0.10); Basophils % (A) 0.8 %; Eosinophils # (A) 0.07 10*3/uL (0.04-0.35); Eosinophils % (A) 0.5 %; HCT 43.1 % (37.2-46.3); HGB 15.7 g/dL (12.0-15.0); Lymphocytes # (A) 0.23 10*3/uL (0.90-5.00); Lymphocytes % (A) 1.7 %; MCH 32.4 pg (27.0-32.0); MCHC 36.4 g/dL (32.0-37.0); MCV 89.0 fL (80.0-97.0); Monocytes # (A) 0.53 10*3/uL (0.20-1.00); Monocytes % (A) 4.0 %; Neutrophils # (A) 11.94 10*3/uL (1.80-7.70); Neutrophils % (A) 90.4 %; Platelet Count 189 10*3/uL (140-440); RBC 4.84 10*6/uL (4.10-5.20); RDW 15.2 % (11.5-14.5); WBC 13.21 10*3/uL (4.50-10.00)
--- NOTE | 2024-12-29 10:31 | P.PN ---
Subjective Progress Note Date: 12/29/24 Reason for Consult (text): NSTEMI, defibrillator discharge History of present illness: This is a 69-year-old female patient of Dr. Greene with past medical history of nonischemic cardiomyopathy status post ICD, hypertension, dyslipidemia, tobacco use and dependence, PAT. We have been asked to evaluate the patient for defibrillator discharge and NSTEMI. Patient's states she came into the hospital because she was not able to walk. She stood to walk and she started falling. She denies loss of consciousness. Regarding the defibrillator d ischarge, patient does not recall having a shock from her defibrillator. She does not recall ever having a shock from her defibrillator. Patient apparently received a call from cardiology that the defibrillator went off. Patient was hospitalized earlier this month and was seen by cardiology at that time and also had elevated troponin with a flat pattern. Apparently shortness of breath has been going on for several weeks. Patient denies chest pain chest pressure or chest tightness. Blood pressure 101/68, heart rate 80, pulse ox 93% on room air. Patient has been afebrile. Device interrogation performed in October of this year revealed 92% left bundle pacing and no underlying arrhythmias. -EKG: Ventricularly paced rhythm. -Chest x-ray: No acute process. -Laboratory studies: Troponin 0.145, 0.147, 0.14. WBC 11.8, hemoglobin 15.3. Sodium 127 up from 125, potassium 3.2, BUN 26 creatinine 0.5. AST 57, ALT 65. -Home cardiac medications: Amlodipine 2.5 mg daily, atorvastatin 80 mg daily, Coreg 6.25 mg twice daily, Farxiga 5 mg daily, Lasix 40 mg twice daily, Nitrostat as needed, potassium chloride 20 mill equivalents 3 times daily. -Echocardiogram performed on 12/18/2024 revealed moderate severe global hypokinesis of the left ventricle with EF 35 to 40%, wire noted in the right johann tricle. Mild mitral and tricuspid regurgitation. -Lexiscan Cardiolite stress test performed in the office on 09/27/2019 was inconclusive EKG part of the stress test due to baseline EKG abnormalities. Normal myocardial perfusion and function. -Cardiac catheterization in 2011 revealed EF 25%, normal coronary arteries. -09/30/2023 was a generator replacement for biventricular ICD, [employer]. 12/27/2024 Yesterday, NTP was discontinued. Interrogation reviewed. Patient was contacted by the ICD company regarding lead impedance. No shock was given. Patient denies chest pain or shortness of breath today. Blood pressure 117/83, heart rate 88, pulse ox 95% on 2 L nasal cannula. No repeat blood work today. 12/28/2024 Patient seen and examined. Previous interrogation of ICD obtained from the office which did show some lead impedance but is more so on the most recent study done this week. We will ask for Dr. Greene to review reports. Patient denies chest pain or shortness of breath. She still states she feels weak. Her states she has not been eating very much. Blood pressure 108/76, heart rate 78, pulse ox 93% on 2 L nasal cannula. Repeat blood work reveals WBC 12.6, hemoglobin 15.6, sodium 126, potassium 2.7, BUN 40 and creatinine 0.8. Triglycerides 306, cholesterol 220, LDL 111. 12/29/2024 Patient seen and examined. Dr. Greene has reviewed the interrogation reports a nd there is impedance of the leads for which patient will require LifeVest. Patient has had increased oxygen needs and increased O2 to 8 L possible aspiration pneumonia. Blood pressure 95/61, heart rate 82, pulse ox 91% on 8 L high flow nasal cannula. Repeat blood work reveals WBC 13.2, hemoglobin 15.7. Sodium 127, potassium 4.7, BUN 39 creatinine 0.91. Chest x-ray reveals airspace opacities at the lung bases. Aspiration or pneumonia most likely. Physical examination: Gen: This is 69-year-old female in no acute distress. VS: reviewed HEENT: Head is atraumatic, normocephalic. Pupils equal, round. Sclerae is anicteric. NECK: Supple. No JVD. LUNGS: Bilateral rhonchi. No intercostal retractions. HEART: Regular rate and rhythm. No murmur. ABDOMEN: Soft No tenderness. EXTREMITIES: No pedal edema. No calf tenderness. NEUROLOGICAL: Patient is awake, alert and oriented x3. Assessment: Possible ICD discharge has been ruled out by ICD interrogation Lead impedance on device interrogation Elevated troponin, flat pattern not indicative of acute coronary syndrome Hospitalization in early December with elevated troponins as well Nonischemic cardiomyopathy status post ICD Chronic systolic heart failure Hypertension Dyslipidemia Tobacco use and dependence PAT Acute hypoxic respiratory failure currently on 8 L nasal cannula Possible pneumonia Plan: Continue patient's home cardiac medications Hold amlodipine due to hypotension No need to repeat echocardiogram as this was performed on 12/18 Due to ICD lead impedance, patient will require LifeVest. Once a LifeVest is obtained, ICD will be turned off. Patient will need to be studied with Dr. Greene at a later time and this may occur as an outpatient Further recommendations to follow based upon clinical course Nurse practitioner note has been reviewed, I agree with documented findings and plan of care. Patient was seen and examined. Objective - Vital Signs Vital signs: Vital Signs Temp 97.7 F 12/29/24 08:00 Pulse 82 12/29/24 08:00 Resp 16 12/29/24 08:00 BP 95/61 12/29/24 08:00 Pulse Ox 91 L 12/29/24 08:00 FiO2 Intake & Output 12/28/24 12/29/24 12/29/24 18:59 06:59 18:59 Intake Total 720 20 540 Output Total 350 200 Balance 370 -180 540 Weight 67 kg Intake: IV 20 Invasive Line 1 10 Invasive Line 3 10 Oral 720 540 Output: Urine 350 200 Other: Voiding Method Indwelling Catheter Indwelling Catheter - Labs CBC & Chem 7: 12/29/24 09:47 12/29/24 07:41 Labs: Abnormal Lab Results - Last 24 Hours (Table) 12/28/24 12/28/24 12/28/24 Range/Units 10:16 10:16 15:07 WBC 12.66 H (4.50-10.00) 10*3/uL Hgb 15.6 H (12.0-15.0) g/dL MCH 32.3 H (27.0-32.0) pg Immature Gran # 0.45 H (0.00-0.04) 10*3/uL Neutrophils # 10.89 H (1.80-7.70) 10*3/uL Lymphocytes # 0.40 L (0.90-5.00) 10*3/uL Eosinophils # 0.00 L (0.04-0.35) 10*3/uL Sodium 126 L (137-145) mmol/L Potassium 2.7 L* 3.4 L (3.5-5.1) mmol/L Chloride 81 L (98-107) mmol/L Carbon Dioxide 33 H (22-30) mmol/L BUN 40 H (7-17) mg/dL Glucose 145 H (74-99) mg/dL 12/29/24 Range/Units 07:41 WBC (4.50-10.00) 10*3/uL Hgb (12.0-15.0) g/dL MCH (27.0-32.0) pg Immature Gran # (0.00-0.04) 10*3/uL Neutrophils # (1.80-7.70) 10*3/uL Lymphocytes # (0.90-5.00) 10*3/uL Eosinophils # (0.04-0.35) 10*3/uL Sodium 127 L (137-145) mmol/L Potassium (3.5-5.1) mmol/L Chloride 90 L (98-107) mmol/L Carbon Dioxide (22-30) mmol/L BUN 39 H (7-17) mg/dL Glucose 132 H (74-99) mg/dL
[2024-12-29 11:18] LABS: T4, Free (Free Thyroxine) 2.18 ng/dL (0.78-2.19)
[2024-12-29] MEDS: AZITHROMYCIN 500 MG in SODIUM CHLORIDE 0.9% 250 ML IVPB SCH (11:33)
[2024-12-29 11:59] LABS: NT-Pro-B-Type Natriuretic Pept 1580.0 pg/mL
[2024-12-29] MEDS: IPRATROPIUM-ALBUTEROL 3 ML NEB INHALATION SCH ×2 (12:22→15:54)
[2024-12-29 13:03] LABS: Glucose,Whole Blood 140 mg/dL (70-110)
--- NOTE | 2024-12-29 13:29 | XR ---
EXAMINATION TYPE: XR chest 1V portable DATE OF EXAM: 12/29/2024 1:20 PM COMPARISON: 12/28/2024 CLINICAL INDICATION: Female, 69 years old with history of shortness of breath, TECHNIQUE: XR chest 1V portable views of the chest are obtained. FINDINGS: Demonstrated are scattered senescent parenchymal change. There is no evidence for focal infiltrate. The heart is stable. Hilar and mediastinal structures are within normal limits. Degenerative changes are seen of the dorsal spine. IMPRESSION: 1. Chronic changes without evidence for acute pulmonary disease. [facility], , 12/29/2024 1:26 PM
[2024-12-29 13:38] LABS: Allen Test Performed? Yes
[2024-12-29 13:39] LABS: ABG HCO3 27 mmol/L (21-25); ABG PCO2 31 mmHg (35-45); ABG PH 7.55 (7.35-7.45); ABG TCO2 28 mmol/L (19-24)
[2024-12-29 13:44] LABS: ABG PO2 39 mmHg (83-108)
[2024-12-29 14:04] LABS: Glucose,Whole Blood 143 mg/dL (70-110)
[2024-12-29] MEDS ORDERED: IPRATROPIUM-ALBUTEROL 3 ML NEB INHALATION PRN (14:04)
[2024-12-29] MEDS ORDERED: Magnesium Replacement Protocol 1 EACH MISC MISCELLANE PRN (14:06)
[2024-12-29] MEDS ORDERED: Phosphorus Replacement Protoco 1 EACH MISC MISCELLANE PRN (14:06)
[2024-12-29] MEDS ORDERED: NALOXONE 0.4 MG/ML 1 ML VIAL IV PRN (14:06)
--- NOTE | 2024-12-29 14:31 | P.CNPUL ---
History of Present Illness Consult date: 12/29/24 Requesting physician: Tani Emmanuel Reason for consult: dyspnea, hypoxemia, pneumonia, abnormal CXR/CT Chief complaint: Hypoxemic respiratory failure. History of present illness: Pulmonary consult dated December 29, 2024. 69-year-old female who looks much older than her stated age, who apparently comes into the emergency department, December 25, brought in by EMS, because apparently she was found down on the floor. She apparently was going to the bathroom, and fell, but did not hurt herself. She believes her defibrillator, went off, but she was not sure. She is not sure if she lost consciousness according to the [facility]. She apparently denied any chest pain, or difficulty breathing in the emergency department. Apparently, the patient was evaluated by cardiology, and, apparently there was an issue with the defibrillator. Anyway, the patient was all set to be discharged, but apparently last night, and then today, the patient developed some increasing shortness of breath, and, s aturations are quite low, and the patient required more more oxygen, to the point where she was on Airvo. We were asked to see the patient because of her respiratory decline. Chest x-ray appears to show possible minimal infiltrate at the right lung base, she may have aspirated. She apparently has a history of throat cancer, undergoing both chemo and radiation therapy. The status of that is not known. In addition, according to the chart, she has a history of COPD, acid reflux disease, hypertension, rheumatoid arthritis, sleep apnea, hypothyroidism, among other things. She has had a heart catheterization, pacemaker, and AICD placement. We attempted to talk to the family about CODE STATUS. They were not sure of her CODE STATUS although in the chart, apparently she was not to be intubated. The was unsure. The daughter could not be reached. A blood gas was done, showing a PO2 of 39, PCO2 of 31, and a pH of 7.55. The patient was transferred to the intensive care unit. The blood gas was done on 100% oxygen. White count was 13.2, hemoglobin 15.7, hematocrit 43.1, and platelet count 189,000. Sodium was 127, potassium 4.7, chlorides 90, CO2 23, anion gap 14, BUN 39, creatinine 0.91. Glucose was 143. N-terminal proBNP was 1580. TSH was quite high at 15.1. Home medications included levothyroxine, which the patient may or may not be taking. Chest x-ray from earlier, shows a possible minimal infiltrate, right lower lobe. Apparently the patient has been evaluated by speech pathology. Review of Systems REVIEW OF SYSTEMS: Primarily reported by the nurse, as the patient is a very poor historian. CONSTITUTIONAL: [Negative.] NEUROLOGIC: [ Negative.] HEENT: [ Negative.] CARDIAC: [Negative.] PULMONARY: Worsening hypoxemia. GI: [Negative.] : [Negative.] RHEUMATOLOGIC: [ Negative.] IMMUNOLOGIC: [ Negative.] ENDOCRINE: [Negative. ] DERMATOLOGIC: [Negative.] Past Medical History Past Medical History: Cancer, COPD, GERD/Reflux, Hypertension, Rheumatoid Arthritis (RA), Sleep Apnea/CPAP/BIPAP, Thyroid Disorder, Vascular Disorder Additional Past Medical History / Comment(s): USES CPAP MACHINE and O2 at 2L at night as well. STATES HX OF STOMACH ULCERS. Current "rash on right foot from flip flops". PAD. Throat cancer History of Any Multi-Drug Resistant Organisms: None Reported Past Surgical History: AICD, Heart Catheterization, Pacemaker Additional Past Surgical History / Comment(s): Defibrillator, bilateral cateract surgery, battery change on AICD/Pacemaker 10/2023. Past Anesthesia/Blood Transfusion Reactions: No Reported Reaction, Motion Sickness Type of Cardiac Device: AICD Device Placement Date:: 2012 Past Psychological History: Anxiety, Depression Additional Psychological History / Comment(s): Hospitalized February 2023, states almost had a mental breakdown. Smoking Status: Former smoker Past Alcohol Use History: None Reported Additional Past Alcohol Use History / Comment(s): STARTED SMOKING AT AGE 15, SMOKES <1/2 PPD, TRYING TO QUIT. RECOVERING ALCOHOLIC, NO ALCOHOL SINCE 1989. Past Drug Use History: None Reported - Past Family History Brother(s) Family Medical History: Deep Vein Thrombosis (DVT) Medications and Allergies Home Medications Medication Instructions Recorded Confirmed Type Albuterol Inhaler [Ventolin Hfa 2 puff INHALATION RT-QID PRN 02/10/18 12/25/24 History Inhaler] PARoxetine [Paxil] 20 mg PO DAILY 09/30/23 12/25/24 History Fluticasone/Umeclidin/Vilanter 1 puff INHALATION RT-DAILY 03/23/24 12/25/24 Hi story [Kamini Ellipta 100-62.5-25] Famotidine 20 mg PO DAILY 05/16/24 12/25/24 History amLODIPine [Norvasc] 2.5 mg PO DAILY 05/16/24 12/25/24 History Atorvastatin [Lipitor] 80 mg PO DAILY 10/09/24 12/25/24 History Levothyroxine Sodium [Synthroid] 88 mcg PO DAILY 10/09/24 12/25/24 History carvediloL [Coreg] 6.25 mg PO BID 10/09/24 12/25/24 History Furosemide [Lasix] 40 mg PO BID #60 tab 12/02/24 12/25/24 Rx Dapagliflozin Propanediol [Farxiga] 5 mg PO DAILY tab 12/20/24 12/25/24 Rx Nitroglycerin Sl Tabs [Nitrostat] 0.4 mg SUBLINGUAL Q5M PRN tab 12/20/24 12/25/24 Rx Potassium Chloride ER [K-Dur 20] 20 meq PO TID #30 tab 12/20/24 12/25/24 Rx Aspirin 325 mg PO DAILY #100 tab 12/28/24 Rx Allergies Allergy/AdvReac Type Severity Reaction Status Date / Time elastic Allergy Rash/Hives Uncoded 12/25/24 12:30 Physical Exam Osteopathic Statement: *. No significant issues noted on an osteopathic structural exam other than those noted in the History and Physical/Consult. Vitals: Vital Signs Temp Pulse Pulse Pulse Resp BP BP 12/29/24 14:06 12/29/24 13:47 12/29/24 12:22 78 12/29/24 12:17 80 16 106/75 12/29/24 11:10 97.5 F L 86 18 91/65 12/29/24 10:44 18 12/29/24 10:41 12/29/24 09:30 12/29/24 08:00 97.7 F 82 16 95/61 12/29/24 04:00 97.9 F 90 16 128/86 12/28/24 23:01 98.0 F 75 16 107/78 12/28/24 20:33 12/28/24 20:17 80 12/28/24 20:03 12/28/24 20:00 81 12/28/24 19:44 98.1 F 83 16 104/83 12/28/24 16:00 97.8 F 83 16 107/77 Pulse Ox FiO2 12/29/24 14:06 100 12/29/24 13:47 100 12/29/24 12:22 12/29/24 12:17 89 L 12/29/24 11:10 90 L 12/29/24 10:44 89 L 12/29/24 10:41 81 L 12/29/24 09:30 93 L 12/29/24 08:00 91 L 12/29/24 04:00 88 L 12/28/24 23:01 88 L 12/28/24 20:33 88 L 12/28/24 20:17 12/28/24 20:03 87 L 12/28/24 20:00 12/28/24 19:44 85 L 12/28/24 16:00 Intake and Output 12/28/24 12/29/24 12/29/24 22:59 06:59 14:59 Intake Total 140 578 Output Total 350 200 Balance -210 -200 578 Intake: IV 20 38 Invasive Line 1 10 10 Invasive Line 3 10 8 Invasive Line 4 20 Oral 120 540 Output: Urine 350 200 Other: Voiding Method Indwelling Catheter Indwelling Catheter Weight 67 kg No acute distress, oriented 3. Very flat affect. No respiratory distress. HEENT examination is grossly unremarkable. Mucous membranes are moist. No oral lesions. Neck supple. Full range of motion. No adenopathy thyromegaly or neck vein distention. Cardiovascular examination reveals regular rhythm rate. S1-S2 normal. No S3 or S4. No discernible murmur noted. Lungs reveal clear breath sounds. Breath sounds are equal bilaterally. No adventitious lung sounds including wheezes rhonchi or crackles. Abdomen soft bowel sounds are heard. No masses or tenderness. Extremities are intact. No cyanosis clubbing or edema. Skin is without rash or lesion. Neurologic examination is brief but nonfocal. Results - Laboratory Findings CBC and BMP: 12/29/24 09:47 12/29/24 07:41 ABG ABG pH 7.55 (7.35-7.45) H 12/29/24 13:34 ABG pCO2 31 mmHg (35-45) L 12/29/24 13:34 ABG pO2 39 mmHg (83-108) L* 12/29/24 13:34 ABG O2 Saturation 78.1 % (94-97) L 12/29/24 13:34 PT/INR, D-dimer PT 10.4 sec (10.0-12.5) 12/25/24 11:40 INR 0.9 (<1.2) 12/25/24 11:40 D-Dimer 0.49 mg/L FEU (<0.60) 12/29/24 11:05 Abnormal lab findings: Abnormal Labs 12/25/24 12/25/24 12/25/24 11:40 11:40 12:37 WBC Hgb 16.1 H MCH 32.3 H MCHC 37.2 H Immature Gran # 0.46 H Neutrophils # Lymphocytes # Lymphocytes # (Manual) 0.66 L Eosinophils # APTT 20.3 L ABG pH ABG pCO2 ABG pO2 ABG HCO3 ABG Total CO2 ABG O2 Saturation Sodium Potassium Chloride Carbon Dioxide BUN Creatinine Glucose POC Glucose (mg/dL) Calcium Total Bilirubin AST ALT Troponin I 0.145 H* Total Protein Albumin Triglycerides Cholesterol VLDL Cholesterol, Calc TSH 12/25/24 12/25/24 12/25/24 12:37 16:35 18:21 WBC Hgb MCH MCHC Immature Gran # Neutrophils # Lymphocytes # Lymphocytes # (Manual) Eosinophils # APTT ABG pH ABG pCO2 ABG pO2 ABG HCO3 ABG Total CO2 ABG O2 Saturation Sodium 125 L Potassium 3.0 L Chloride 86 L Carbon Dioxide 31 H BUN 30 H Creatinine Glucose 126 H POC Glucose (mg/dL) Calcium 8.1 L Total Bilirubin 1.9 H AST 57 H ALT 65 H Troponin I 0.147 H* 0.140 H* Total Protein 5.7 L Albumin 3.4 L Triglycerides Cholesterol VLDL Cholesterol, Calc TSH 12/26/24 12/26/24 12/28/24 10:23 10:23 10:16 WBC 11.86 H 12.66 H Hgb 15.3 H 15.6 H MCH 32.1 H 32.3 H MCHC Immature Gran # 0.45 H Neutrophils # 10.89 H Lymphocytes # 0.40 L Lymphocytes # (Manual) Eosinophils # 0.00 L APTT ABG pH ABG pCO2 ABG pO2 ABG HCO3 ABG Total CO2 ABG O2 Saturation Sodium 127 L Potassium 3.2 L Chloride 88 L Carbon Dioxide BUN 26 H Creatinine 0.51 L Glucose 105 H POC Glucose (mg/dL) Calcium Total Bilirubin AST ALT Troponin I Total Protein Albumin Triglycerides 306.00 H Cholesterol 220.00 H VLDL Cholesterol, Calc 61.20 H TSH 12/28/24 12/28/24 12/29/24 10:16 15:07 07:41 WBC Hgb MCH MCHC Immature Gran # Neutrophils # Lymphocytes # Lymphocytes # (Manual) Eosinophils # APTT ABG pH ABG pCO2 ABG pO2 ABG HCO3 ABG Total CO2 ABG O2 Saturation Sodium 126 L 127 L Potassium 2.7 L* 3.4 L Chloride 81 L 90 L Carbon Dioxide 33 H BUN 40 H 39 H Creatinine Glucose 145 H 132 H POC Glucose (mg/dL) Calcium Total Bilirubin AST ALT Troponin I Total Protein Albumin Triglycerides Cholesterol VLDL Cholesterol, Calc TSH 12/29/24 12/29/24 12/29/24 09:47 09:47 13:02 WBC 13.21 H Hgb 15.7 H MCH 32.4 H MCHC Immature Gran # 0.34 H Neutrophils # 11.94 H Lymphocytes # 0.23 L Lymphocytes # (Manual) Eosinophils # APTT ABG pH ABG pCO2 ABG pO2 ABG HCO3 ABG Total CO2 ABG O2 Saturation Sodium Potassium Chloride Carbon Dioxide BUN Creatinine Glucose POC Glucose (mg/dL) 140 H Calcium Total Bilirubin AST ALT Troponin I Total Protein Albumin Triglycerides Cholesterol VLDL Cholesterol, Calc TSH 15.100 H 12/29/24 12/29/24 13:34 14:03 WBC Hgb MCH MCHC Immature Gran # Neutrophils # Lymphocytes # Lymphocytes # (Manual) Eosinophils # APTT ABG pH 7.55 H ABG pCO2 31 L ABG pO2 39 L* ABG HCO3 27 H ABG Total CO2 28 H ABG O2 Saturation 78.1 L Sodium Potassium Chloride Carbon Dioxide BUN Creatinine Glucose POC Glucose (mg/dL) 143 H Calcium Total Bilirubin AST ALT Troponin I Total Protein Albumin Triglycerides Cholesterol VLDL Cholesterol, Calc TSH - Diagnostic Findings Chest x-ray: image reviewed Assessment and Plan Assessment: Acute hypoxemic respiratory failure, likely requiring intubation and mechanical ventilation, December 29, 2024. Possible aspiration pneumonia, right lower lobe. S/P AICD placement. Prior history of heart catheterization. History of throat cancer, status post chemo/radiation. History of gastroesophageal reflux disease. History of hypertension. History of rheumatoid arthritis. History of hypothyroidism. History of sleep apnea syndrome. History of anxiety/depression. Prior history of tobacco use. Plan: Plan dated December 29, 2024. The patient will be transferred to the intensive care unit. The patient will require intubation and mechanical ventilation. The patient will require placement of lines. Additional recommendations and suggestions are forthcoming. The patient may have aspirated, and the patient will be placed on appropriate antibiotics. Chest x-ray shows a possible infiltrate in the right lower lobe. Prognosis is guarded. The patient does have a history of throat cancer, and apparently has received chemoradiation. There are some ambivalence about whether or not the patient was a full code, or did not want to be intubated. The apparently was not able to answer the question and the daughter was not able to be reached. Prognosis is guarded. Dictation was produced using [employer] software. Please excuse any grammatical, word or spelling errors. Time with Patient: Greater than 30
--- NOTE | 2024-12-29 14:35 | XR ---
EXAMINATION TYPE: XR chest 1V portable DATE OF EXAM: 12/29/2024 2:28 PM COMPARISON: 12/29/2024 CLINICAL INDICATION: Female, 69 years old with history of Tube placement, FINDINGS: Endotracheal tube is approximately 4.7 cm from the azael. NG tube seen coursing into the stomach. IA CD device is noted. No pneumothorax seen. No infiltrate seen. Stable appearance of the cardio-mediastinal structures at this time. IMPRESSION: 1. Indwelling tubes and catheters as noted. No acute pulmonary disease appreciated. [facility], , 12/29/2024 2:32 PM
[2024-12-29 14:55] LABS: ALT 57 U/L (4-34); AST 42 U/L (14-36); Albumin 3.5 g/dL (3.5-5.0); Alkaline Phosphatase 109 U/L (38-126); Total Protein 5.8 g/dL (6.3-8.2)
[2024-12-29 14:57] LABS: ABG HCO3 27 mmol/L (21-25); ABG PCO2 33 mmHg (35-45); ABG PH 7.51 (7.35-7.45); ABG TCO2 28 mmol/L (19-24); Allen Test Performed? Yes
[2024-12-29 15:04] LABS: ABG PO2 53 mmHg (83-108)
[2024-12-29] MEDS: CISATRACURIUM 2 MG/ML 5 ML VIAL IV ONE (15:11)
[2024-12-29] MEDS: SODIUM CHLORIDE 0.9% 1,000 ML IV ONE ×2 (15:41→16:59)
[2024-12-29] MEDS: NOREPINEPHRINE 8 MG in SODIUM CHLORIDE 0.9% 250 ML IV SCH (15:58)
--- NOTE | 2024-12-29 16:22 | XR ---
EXAMINATION TYPE: XR chest 1V portable DATE OF EXAM: 12/29/2024 4:15 PM COMPARISON: 12/29/2024 CLINICAL INDICATION: Female, 69 years old with history of post central line, FINDINGS: Indwelling tubes and catheters are unchanged. No change in bibasilar opacities. Stable appearance of the cardio-mediastinal structures at this time. Pleural effusion unchanged. IMPRESSION: 1. Stable portable chest. Clinical correlation and follow up until resolution is recommended. [facility], , 12/29/2024 4:20 PM
--- NOTE | 2024-12-29 16:27 | OP ---
OPERATIVE REPORT DATE OF SERVICE : PROCEDURE PERFORMED: Right radial artery line. PREOPERATIVE DIAGNOSIS: Frequent blood draws and blood gas monitoring. POSTOPERATIVE DIAGNOSIS: Frequent blood draws and blood gas monitoring. OPERATORS: Dr. Stubbs and he was assisted by Dr. Marlen Oleary. There was informed consent and universal timeout. The patient's procedure was done in the ICU. ARTERIAL LINE PLACEMENT: Indications: Hemodynamic monitoring. A time-out was completed verifying correct patient, procedure, site, positioning, and implant(s) or special equipment if applicable. Garrick's test was performed to ensure adequate perfusion. The patient's right wrist was prepped and draped in sterile fashion. 1% Lidocaine was used to anesthetize the area. An 18G Arrow arterial line was introduced into the right radial artery. The catheter was threaded over the guide wire and the needle was removed with appropriate pulsatile blood return. Blood loss was minimal. The catheter was then sutured in place to the skin and a sterile dressing applied. Perfusion to the extremity distal to the point of catheter insertion was checked and found to be adequate. The patient tolerated the procedure well and there were no complications. There was good blood return and waveform. The patient tolerated the procedure well. The catheter was sutured in place. A sterile dressing was applied by the nurse. There was no immediate complication. MMODL / IJN: [id number] /
--- NOTE | 2024-12-29 16:27 | OP ---
OPERATIVE REPORT DATE OF SERVICE : PROCEDURE: Left subclavian triple-lumen catheter. PREOPERATIVE DIAGNOSIS: Administration of fluids and pressors. POSTOPERATIVE DIAGNOSIS: Administration of fluids and pressors. OPERATORS: Dr. Stubbs and Dr. Oleary. There was informed consent and universal timeout. The patient's procedure took place in ICU. TRIPLE LUMEN CATHETER PLACEMENT: Indication: Hemodynamic monitoring/Intravenous access. A time-out was completed verifying correct patient, procedure, site, positioning, and implant(s) or special equipment if applicable. The patient was placed in a dependent position appropriate for triple lumen catheter placement based on the vein to be cannulated. The patient's left shoulder was prepped and draped in sterile fashion. 1% Lidocaine was used to anesthetize the surrounding skin area. A triple lumen 9F Cordis catheter was introduced into the left subclavian vein using Seldinger technique. The catheter was threaded smoothly over the guide wire and appropriate blood return was obtained. Each lumen of the catheter was evacuated of air and flushed with sterile saline. The catheter was then sutured in place to the skin and a sterile dressing applied. Perfusion to the extremity distal to the point of catheter insertion was checked and found to be adequate. There was good blood return from all 3 ports. The catheter was sutured in place. A sterile dressing was applied by the nurse. There was no immediate complication. Chest x-ray was ordered. The tip of the catheter was seen at the junction of superior vena cava, right atrium. MMODL / IJN: [id number] /
[2024-12-29] MEDS: CHLORHEXIDINE GLUCONATE 15 ML CUP MUCOUS MEM SCH (20:05)
[2024-12-29 23:57] LABS: Glucose,Whole Blood 182 mg/dL (70-110)
[2024-12-30 04:28] LABS: Basophils # (A) 0.06 10*3/uL (0.00-0.10); Basophils % (A) 0.4 %; Eosinophils # (A) 0.00 10*3/uL (0.04-0.35); Eosinophils % (A) 0.0 %; HCT 39.4 % (37.2-46.3); HGB 13.9 g/dL (12.0-15.0); Lymphocytes # (A) 0.21 10*3/uL (0.90-5.00); Lymphocytes % (A) 1.4 %; MCH 32.2 pg (27.0-32.0); MCHC 35.3 g/dL (32.0-37.0); MCV 91.2 fL (80.0-97.0); Monocytes # (A) 0.50 10*3/uL (0.20-1.00); Monocytes % (A) 3.3 %; Neutrophils # (A) 14.03 10*3/uL (1.80-7.70); Neutrophils % (A) 91.8 %; Platelet Count 161 10*3/uL (140-440); RBC 4.32 10*6/uL (4.10-5.20); RDW 15.6 % (11.5-14.5); WBC 15.28 10*3/uL (4.50-10.00)
[2024-12-30 04:44] LABS: African American GFR (CKD) 69 (>60 ml/min/1.73 sqM); Anion Gap 10 mmol/L; Blood Urea Nitrogen 38 mg/dL (7-17); Calcium 8.2 mg/dL (8.4-10.2); Carbon Dioxide 25 mmol/L (22-30); Chloride 94 mmol/L (98-107); Glucose 175 mg/dL (74-99); Magnesium 2.0 mg/dL (1.6-2.3); Non-African American GFR(CKD) 60 (>60 ml/min/1.73 sqM); Potassium 3.7 mmol/L (3.5-5.1); Sodium 129 mmol/L (137-145)
[2024-12-30] MEDS: POTASSIUM BICARBONATE/CIT AC 20 MEQ TABLET.EFF NG-TUBE SCH ×2 (05:09→21:26)
[2024-12-30 05:52] LABS: ABG HCO3 25 mmol/L (21-25); ABG PCO2 45 mmHg (35-45); ABG PH 7.35 (7.35-7.45); ABG PO2 119 mmHg (83-108); ABG TCO2 26 mmol/L (19-24); Allen Test Performed? Yes
[2024-12-30 06:12] LABS: Glucose,Whole Blood 186 mg/dL (70-110)
--- NOTE | 2024-12-30 06:49 | XR ---
EXAMINATION TYPE: XR chest 1V portable DATE OF EXAM: 12/30/2024 COMPARISON: 12/29/2024 CLINICAL INDICATION: Female, 69 years old with history of Tube placement; TECHNIQUE: Single frontal view of the chest is obtained. FINDINGS: No change in the AICD device. ET tube is 7.4 cm above the azael. The NG tube projects into the stoma ch fundus just distal to the EG junction. There is no change in the tiny right pleural effusion. There is no abnormal interstitial density of l umbar airspace consolidation. There is no pneumothorax. IMPRESSION: Stable portable chest with no significant interval change [facility], , 12/30/2024 6:47 AM
--- NOTE | 2024-12-30 09:52 | P.PN ---
Subjective Progress Note Date: 12/30/24 Principal diagnosis: Respiratory failure. Pulmonary consult dated December 29, 2024. 69-year-old female who looks much older than her stated age, who apparently comes into the emergency department, December 25, brought in by EMS, because apparently she was found down on the floor. She apparently was going to the bathroom, and fell, but did not hurt herself. She believes her defibrillator, went off, but she was not sure. She is not sure if she lost consciousness according to the [facility]. She apparently denied any chest pain, or difficulty breathing in the emergency department. Apparently, the patient was evaluated by cardiology, and, apparently there was an issue with the defibrillator. Anyway, the patient was all set to be discharged, but apparently last night, and then today, the patient developed some increasing shortness of breath, and, saturations are quite low, and the patient required more more oxygen, to the point where she was on Airvo. We were asked to see the patient because of her respiratory decline. Chest x-ray appears to show possible minimal infiltrate at the right lung base, she may have aspirated. She apparently has a history of throat cancer, undergoing both chemo and radiation therapy. The status of that is not known. In addition, according to the chart, she has a history of COPD, acid reflux disease, hypertension, rheumatoid arthritis, sleep apnea, hypothyroidism, among other things. She has had a heart catheterization, pacemaker, and AICD placement. We attempted to talk to the family about CODE STATUS. They were not sure of her CODE STATUS although in the chart, apparently she was not to be intubated. The was unsure. The daughter could not be reached. A blood gas was done, showing a PO2 of 39, PCO2 of 31, and a pH of 7.55. The patient was transferred to the intensive care unit. The blood gas was done on 100% oxygen. White count was 13.2, hemoglobin 15.7, hematocrit 43.1, and platelet count 189,000. Sodium was 127, potassium 4.7, chlorides 90, CO2 23, anion gap 14, BUN 39, creatinine 0.91. Glucose was 143. N-terminal proBNP was 1580. TSH was quite high at 15.1. Home medications included levothyroxine, which the patient may or may not be taking. Chest x-ray from earlier, shows a possible minimal infiltrate, right lower lobe. Apparently the patient has been evaluated by speech pathology. Progress note dated December 30, 2024. 69-year-old female who looks much older than her stated age. We saw her yesterday in consultation. Patient developed respiratory failure, presumably secondary to aspiration. Patient is currently on the ventilator. She is on volume assist-control, rate 14, tidal volume 450, FiO2 80%, PEEP of 10. Blood gases on 100% show pO2 of 119, pCO2 of 45, pH of 7.35. Art line and central line were placed yesterday. She is on propofol at 40 mcg/kg/min, norepinephrine at 2.8 mcg/min, and saline at 10 cc an hour. She is getting vital high-protein at 10 cc an hour. She continues on azithromycin and Rocephin for aspiration pneumonia. White count of 15.3, hemoglobin 13.9, hematocrit 39.4, platelet count 161,000. Sodium 129, potassium 3.7, chloride 94, CO2 25, BUN 38, creatinine 0.98. Glucose is 186. Calcium 8.2. Chest x-ray shows a small right-sided pleural effusion, and some minimal infiltrate, at the right lung base. Objective - Vital Signs Vital signs: Vital Signs Temp 96.3 F L 12/30/24 04:00 Pulse 85 12/30/24 08:23 Resp 15 12/30/24 07:00 BP 89/62 12/30/24 07:00 Pulse Ox 96 12/30/24 07:00 FiO2 80 12/30/24 08:00 Intake & Output 12/29/24 12/30/24 12/30/24 18:59 06:59 18:59 Intake Total 2627.514 418.799 10 Output Total 290 600 60 Balance 2337.514 -181.201 -50 Weight 67 kg 69 kg Intake: IV 38 Invasive Line 1 10 Invasive Line 3 8 Invasive Line 4 20 Sodium Chloride 0.9% 1, 0 000 ml @ 999 mls/hr IV . Q1H1M [facility] Rx#:[id number] Intake, IV Titration 2049.514 228.799 Amount Norepinephrine 8 mg In 63.611 Sodium Chloride 0.9% 250 ml @ 0.03 MCG/KG/MIN 3. 889 mls/hr IV .Q24H [facility] Rx#:[id number] Sodium Chloride 0.9% 1, 2000 000 ml @ 999 mls/hr IV . Q1H1M [facility] Rx#:[id number] propofoL 1,000 mg In 49.514 165.188 Empty Bag 1 bag @ 15 MCG/ KG/MIN 6.03 mls/hr IV . [id number] [facility] Rx#:[id number] Oral 540 Tube Feeding 100 10 Other 90 Output: Urine 290 600 60 Other: Voiding Method Indwelling Catheter Indwelling Catheter # Bowel Movements 1 ABP, PAP, CO, CI - Last Documented Arterial Blood Pressure 89/60 - Exam No acute distress, sedated on propofol, with an orally placed endotracheal tube. HEENT examination is grossly unremarkable. Neck supple. Full range of motion. No adenopathy thyromegaly or neck vein distention. Cardiovascular examination reveals regular rhythm rate. S1-S2 normal. No S3 or S4. No discernible murmur noted. Heart sounds are distant. Lungs reveal scattered bilateral rhonchi. No wheezes or crackles. Breath sounds equal. Saturations are adequate. Abdomen soft bowel sounds are heard. No masses or tenderness. Extremities are intact. No cyanosis clubbing or edema. Skin is without rash or lesion. Neurologic examination cannot be assessed at this time. - Labs CBC & Chem 7: 12/30/24 04:17 12/30/24 04:17 Labs: Abnormal Lab Results - Last 24 Hours (Table) 12/29/24 12/29/24 12/29/24 Range/Units 07:41 09:47 09:47 WBC 13.21 H (4.50-10.00) 10*3/uL Hgb 15.7 H (12.0-15.0) g/dL MCH 32.4 H (27.0-32.0) pg Immature Gran # 0.34 H (0.00-0.04) 10*3/uL Neutrophils # 11.94 H (1.80-7.70) 10*3/uL Lymphocytes # 0.23 L (0.90-5.00) 10*3/uL Eosinophils # (0.04-0.35) 10*3/uL ABG pH (7.35-7.45) ABG pCO2 (35-45) mmHg ABG pO2 (83-108) mmHg ABG HCO3 (21-25) mmol/L ABG Total CO2 (19-24) mmol/L ABG O2 Saturation (94-97) % Sodium 127 L (137-145) mmol/L Chloride 90 L (98-107) mmol/L BUN 39 H (7-17) mg/dL Glucose 132 H (74-99) mg/dL POC Glucose (mg/dL) (70-110) mg/dL Calcium (8.4-10.2) mg/dL Total Bilirubin 2.1 H (0.2-1.3) mg/dL AST 42 H (14-36) U/L ALT 57 H (4-34) U/L Total Protein 5.8 L (6.3-8.2) g/dL TSH 15.100 H (0.465-4.680) mIU/L Cortisol (3.1-22.4) UG/DL 12/29/24 12/29/24 12/29/24 Range/Units 11:05 13:02 13:34 WBC (4.50-10.00) 10*3/uL Hgb (12.0-15.0) g/dL MCH (27.0-32.0) pg Immature Gran # (0.00-0.04) 10*3/uL Neutrophils # (1.80-7.70) 10*3/uL Lymphocytes # (0.90-5.00) 10*3/uL Eosinophils # (0.04-0.35) 10*3/uL ABG pH 7.55 H (7.35-7.45) ABG pCO2 31 L (35-45) mmHg ABG pO2 39 L* (83-108) mmHg ABG HCO3 27 H (21-25) mmol/L ABG Total CO2 28 H (19-24) mmol/L ABG O2 Saturation 78.1 L (94-97) % Sodium (137-145) mmol/L Chloride (98-107) mmol/L BUN (7-17) mg/dL Glucose (74-99) mg/dL POC Glucose (mg/dL) 140 H (70-110) mg/dL Calcium (8.4-10.2) mg/dL Total Bilirubin (0.2-1.3) mg/dL AST (14-36) U/L ALT (4-34) U/L Total Protein (6.3-8.2) g/dL TSH (0.465-4.680) mIU/L Cortisol 103.0 H (3.1-22.4) UG/DL 12/29/24 12/29/24 12/29/24 Range/Units 14:03 14:46 23:56 WBC (4.50-10.00) 10*3/uL Hgb (12.0-15.0) g/dL MCH (27.0-32.0) pg Immature Gran # (0.00-0.04) 10*3/uL Neutrophils # (1.80-7.70) 10*3/uL Lymphocytes # (0.90-5.00) 10*3/uL Eosinophils # (0.04-0.35) 10*3/uL ABG pH 7.51 H (7.35-7.45) ABG pCO2 33 L (35-45) mmHg ABG pO2 53 L* (83-108) mmHg ABG HCO3 27 H (21-25) mmol/L ABG Total CO2 28 H (19-24) mmol/L ABG O2 Saturation 88.8 L (94-97) % Sodium (137-145) mmol/L Chloride (98-107) mmol/L BUN (7-17) mg/dL Glucose (74-99) mg/dL POC Glucose (mg/dL) 143 H 182 H (70-110) mg/dL Calcium (8.4-10.2) mg/dL Total Bilirubin (0.2-1.3) mg/dL AST (14-36) U/L ALT (4-34) U/L Total Protein (6.3-8.2) g/dL TSH (0.465-4.680) mIU/L Cortisol (3.1-22.4) UG/DL 12/30/24 12/30/24 12/30/24 Range/Units 04:17 04:17 05:49 WBC 15.28 H (4.50-10.00) 10*3/uL Hgb (12.0-15.0) g/dL MCH 32.2 H (27.0-32.0) pg Immature Gran # 0.48 H (0.00-0.04) 10*3/uL Neutrophils # 14.03 H (1.80-7.70) 10*3/uL Lymphocytes # 0.21 L (0.90-5.00) 10*3/uL Eosinophils # 0.00 L (0.04-0.35) 10*3/uL ABG pH (7.35-7.45) ABG pCO2 (35-45) mmHg ABG pO2 119 H (83-108) mmHg ABG HCO3 (21-25) mmol/L ABG Total CO2 26 H (19-24) mmol/L ABG O2 Saturation 98.6 H (94-97) % Sodium 129 L (137-145) mmol/L Chloride 94 L (98-107) mmol/L BUN 38 H (7-17) mg/dL Glucose 175 H (74-99) mg/dL POC Glucose (mg/dL) (70-110) mg/dL Calcium 8.2 L (8.4-10.2) mg/dL Total Bilirubin (0.2-1.3) mg/dL AST (14-36) U/L ALT (4-34) U/L Total Protein (6.3-8.2) g/dL TSH (0.465-4.680) mIU/L Cortisol (3.1-22.4) UG/DL 12/30/24 Range/Units 06:10 WBC (4.50-10.00) 10*3/uL Hgb (12.0-15.0) g/dL MCH (27.0-32.0) pg Immature Gran # (0.00-0.04) 10*3/uL Neutrophils # (1.80-7.70) 10*3/uL Lymphocytes # (0.90-5.00) 10*3/uL Eosinophils # (0.04-0.35) 10*3/uL ABG pH (7.35-7.45) ABG pCO2 (35-45) mmHg ABG pO2 (83-108) mmHg ABG HCO3 (21-25) mmol/L ABG Total CO2 (19-24) mmol/L ABG O2 Saturation (94-97) % Sodium (137-145) mmol/L Chloride (98-107) mmol/L BUN (7-17) mg/dL Glucose (74-99) mg/dL POC Glucose (mg/dL) 186 H (70-110) mg/dL Calcium (8.4-10.2) mg/dL Total Bilirubin (0.2-1.3) mg/dL AST (14-36) U/L ALT (4-34) U/L Total Protein (6.3-8.2) g/dL TSH (0.465-4.680) mIU/L Cortisol (3.1-22.4) UG/DL Assessment and Plan Assessment: Acute hypoxemic respiratory failure, requiring intubation, and mechanical ventilation, December 29, 2024. Probable aspiration pneumonia, right lower lobe. S/P AICD placement. Prior history of heart catheterization. History of throat cancer, status post chemo/radiation. History of gastroesophageal reflux disease. History of hypertension. History of rheumatoid arthritis. History of hypothyroidism. History of sleep apnea syndrome. History of anxiety/depression. Prior history of tobacco use. Plan: Plan dated December 29, 2024. The patient will be transferred to the intensive care unit. The patient will require intubation and mechanical ventilation. The patient will require placement of lines. Additional recommendations and suggestions are forthcoming. The patient may have aspirated, and the patient will be placed on appropriate antibiotics. Chest x-ray shows a possible infiltrate in the right lower lobe. Prognosis is guarded. The patient does have a history of throat cancer, and apparently has received chemoradiation. There are some ambivalence about whether or not the patient was a full code, or did not want to be intubated. The apparently was not able to answer the question and the daughter was not able to be reached. Prognosis is guarded. Dictation was produced using [employer] software. Please excuse any grammatical, word or spelling errors. Plan dated December 30, 2024. The patient is seen today in room 262. The patient was intubated yesterday by anesthesia. We placed a arterial line, and central line, yesterday as well. She is on volume assist-control, rate 14, tidal volume 450, FiO2 80%, PEEP of 10. Blood gases were done on 100%. The patient is currently on propofol at 40 mcg/kg/min, norepinephrine at 2.8 mcg/min, saline at 10 cc an hour and vital high-protein at 10 cc an hour. He is currently on azithromycin and Rocephin for possible aspiration pneumonia. All labs, x-rays, medications are reviewed. Prognosis is guarded. We will continue to follow the patient. Dictation was produced using [employer] dictation software. Please excuse any grammatical, word or spelling errors. Time with Patient: Greater than 30
[2024-12-30 11:47] LABS: Glucose,Whole Blood 166 mg/dL (70-110)
[2024-12-30] MEDS ORDERED: VANCOMYCIN IV PER PHARMACY 1 EACH MISC MISCELLANE PRN (14:09)
[2024-12-30] MEDS: POTASSIUM CHLORIDE 10 MEQ in WATER FOR INJECTION 1 100ML.BAG IVPB SCH (14:32)
[2024-12-30] MEDS: VANCOMYCIN 1,250 MG in SODIUM CHLORIDE 0.9% 250 ML IVPB SCH (15:26)
[2024-12-30] MEDS: NOREPINEPHRINE 8 MG in SODIUM CHLORIDE 0.9% 250 ML IV SCH (16:09)
[2024-12-30 18:03] LABS: Glucose,Whole Blood 156 mg/dL (70-110)
--- NOTE | 2024-12-30 20:45 | P.PN ---
Subjective Progress Note Date: 12/30/24 History of present illness: This is a 69-year-old female patient of Dr. Greene with past medical history of nonischemic cardiomyopathy status post ICD, hypertension, dyslipidemia, tobacco use and dependence, PAT. We have been asked to evaluate the patient for defibrillator discharge and NSTEMI. Patient's states she came into the hospital because she was not able to walk. She stood to walk and she started falling. She denies loss of consciousness. Regarding the defibrillator discharge, patient does not recall having a shock from her defibrillator. She does not recall ever having a shock from her defibrillator. Patient apparently received a call from cardiology that the defibrillator went off. Patient was hospitalized earlier this month and was seen by cardiology at that time and also had elevated troponin with a flat pattern. Apparently shortness of breath has been going on for several weeks. Patient denies chest pain chest pressure or chest tightness. Blood pressure 101/68, heart rate 80, pulse ox 93% on room air. Patient has been afebrile. Device interrogation performed in October of this year revealed 92% left bundle pacing and no underlying arrhythmias. -EKG: Ventricularly paced rhythm. -Chest x-ray: No acute process. -Laboratory studies: Troponin 0.145, 0.147, 0.14. WBC 11.8, hemoglobin 15.3. Sodium 127 up from 125, potassium 3.2, BUN 26 creatinine 0.5. AST 57, ALT 65. -Home cardiac medications: Amlodipine 2.5 mg daily, atorvastatin 80 mg daily, Coreg 6.25 mg twice daily, Farxiga 5 mg daily, Lasix 40 mg twice daily, Nitrostat as needed, potassium chloride 20 mill equivalents 3 times daily. -Echocardiogram performed on 12/18/2024 revealed moderate severe global hypokinesis of the left ventricle with EF 35 to 40%, wire noted in the right ventricle. Mild mitral and tricuspid regurgitation. -Lexiscan Cardiolite stress test performed in the office on 09/27/2019 was inconclusive EKG part of the stress test due to baseline EKG abnormalities. Normal myocardial perfusion and function. -Cardiac catheterization in 2011 revealed EF 25%, normal coronary arteries. -09/30/2023 was a generator replacement for biventricular ICD, [employer]. 12/27/2024 Yesterday, NTP was discontinued. Interrogation reviewed. Patient was contacted by the ICD company regarding lead impedance. No shock was given. Patient denies chest pain or shortness of breath today. Blood pressure 117/83, heart rate 88, pulse ox 95% on 2 L nasal cannula. No repeat blood work today. 12/28/2024 Patient seen and examined. Previous interrogation of ICD obtained from the office which did show some lead impedance but is more so on the most recent study done this week. We will ask for Dr. Greene to review reports. Patient denies chest pain or shortness of breath. She still states she feels weak. Her states she has not been eating very much. Blood pressure 108/76, heart rate 78, pulse ox 93% on 2 L nasal cannula. Repeat blood work reveals WBC 12.6, hemoglobin 15.6, sodium 126, potassium 2.7, BUN 40 and creatinine 0.8. Triglycerides 306, cholesterol 220, LDL 111. 12/29/2024 Patient seen and examined. Dr. Greene has reviewed the interrogation reports and there is impedance of the leads for which patient will require LifeVest. Patient has had increased oxygen needs and increased O2 to 8 L possible aspiration pneumonia. Blood pressure 95/61, heart rate 82, pulse ox 91% on 8 L high flow nasal cannula. Repeat blood work reveals WBC 13.2, hemoglobin 15.7. Sodium 127, potassium 4.7, BUN 39 creatinine 0.91. Chest x-ray reveals airspace opacities at the lung bases. Aspiration or pneumonia most likely. 12/30/2024 Yesterday patient about intubated because of increased respiratory distress increased oxygen requirement possibly because of aspiration pneumonia and was transferred to ICU. Today she is examined in the ICU and currently on vent support. Telemetry has not shown any further ventricular arrhythmias. Physical examination: Gen: This is 69-year-old female in no acute distress. VS: reviewed HEENT: Head is atraumatic, normocephalic. Pupils equal, round. Sclerae is anicteric. NECK: Supple. No JVD. LUNGS: Bilateral rhonchi. No intercostal retractions. HEART: Regular rate and rhythm. No murmur. ABDOMEN: Soft No tenderness. EXTREMITIES: No pedal edema. No calf tenderness. NEUROLOGICAL: Patient is awake, alert and oriented x3. Assessment: Possible ICD discharge has been ruled out by ICD interrogation Lead impedance on device interrogation Elevated troponin, flat pattern not indicative of acute coronary syndrome Hospitalization in early December with elevated troponins as well Nonischemic cardiomyopathy status post ICD Chronic systolic heart failure Hypertension Dyslipidemia Tobacco use and dependence PAT Acute hypoxic respiratory failure currently on 8 L nasal cannula Possible pneumonia Plan: Continue aspirin, Lipitor, Coreg 6.25 mg twice daily. Discontinue Farxiga as she is intubated Continue Lasix 40 twice daily Monitor potassium and magnesium levels. Keep potassium at 4, magnesium at 2 No need to repeat echocardiogram as this was performed on 12/18 Due to ICD lead impedance, patient will require LifeVest. Once a LifeVest is obtained, ICD will be turned off. Patient will need to be studied with Dr. Greene at a later time and this may occur as an outpatient Objective - Vital Signs Vital signs: Vital Signs Temp 97.9 F 12/30/24 16:00 Pulse 89 12/30/24 20:30 Resp 14 12/30/24 19:00 BP 104/53 12/30/24 19:00 Pulse Ox 97 12/30/24 19:00 FiO2 80 12/30/24 20:20 Intake & Output 12/30/24 12/30/24 12/31/24 06:59 18:59 06:59 Intake Total 418.799 965.344 2.626 Output Total 600 1330 Balance -181.201 -364.656 2.626 Weight 69 kg Intake: IV 534 0.9 195 Azithromycin 500 mg In 250 Sodium Chloride 0.9% 250 ml @ 250 mls/hr IVPB DAILY [facility] Rx#:[id number] Pressure bag 39 cefTRIAXone 2 gm In 50 Sodium Chloride 0.9% 50 ml @ 100 mls/hr IVPB Q24HR [facility] Rx#:[id number] Intake, IV Titration 228.799 201.344 2.626 Amount Norepinephrine 8 mg In 63.611 Sodium Chloride 0.9% 250 ml @ 0.03 MCG/KG/MIN 3. 889 mls/hr IV .Q24H [facility] Rx#:[id number] Norepinephrine 8 mg In 9.992 2.626 Sodium Chloride 0.9% 250 ml @ 0.03 MCG/KG/MIN 4. 005 mls/hr IV .Q24H [facility] Rx#:[id number] propofoL 1,000 mg In 165.188 191.352 Empty Bag 1 bag @ 15 MCG/ KG/MIN 6.03 mls/hr IV . [id number] [facility] Rx#:[id number] Tube Feeding 100 140 Other 90 90 Output: Urine 600 1330 Other: Voiding Method Indwelling Catheter Indwelling Catheter # Bowel Movements 1 ABP, PAP, CO, CI - Last Documented Arterial Blood Pressure 98/64 - Labs CBC & Chem 7: 12/30/24 04:17 12/30/24 12:30 Labs: Abnormal Lab Results - Last 24 Hours (Table) 12/29/24 12/30/24 12/30/24 Range/Units 23:56 04:17 04:17 WBC 15.28 H (4.50-10.00) 10*3/uL MCH 32.2 H (27.0-32.0) pg Immature Gran # 0.48 H (0.00-0.04) 10*3/uL Neutrophils # 14.03 H (1.80-7.70) 10*3/uL Lymphocytes # 0.21 L (0.90-5.00) 10*3/uL Eosinophils # 0.00 L (0.04-0.35) 10*3/uL ABG pO2 (83-108) mmHg ABG Total CO2 (19-24) mmol/L ABG O2 Saturation (94-97) % Sodium 129 L (137-145) mmol/L Chloride 94 L (98-107) mmol/L BUN 38 H (7-17) mg/dL Glucose 175 H (74-99) mg/dL POC Glucose (mg/dL) 182 H (70-110) mg/dL Calcium 8.2 L (8.4-10.2) mg/dL 12/30/24 12/30/24 12/30/24 Range/Units 05:49 06:10 11:45 WBC (4.50-10.00) 10*3/uL MCH (27.0-32.0) pg Immature Gran # (0.00-0.04) 10*3/uL Neutrophils # (1.80-7.70) 10*3/uL Lymphocytes # (0.90-5.00) 10*3/uL Eosinophils # (0.04-0.35) 10*3/uL ABG pO2 119 H (83-108) mmHg ABG Total CO2 26 H (19-24) mmol/L ABG O2 Saturation 98.6 H (94-97) % Sodium (137-145) mmol/L Chloride (98-107) mmol/L BUN (7-17) mg/dL Glucose (74-99) mg/dL POC Glucose (mg/dL) 186 H 166 H (70-110) mg/dL Calcium (8.4-10.2) mg/dL 12/30/24 Range/Units 18:02 WBC (4.50-10.00) 10*3/uL MCH (27.0-32.0) pg Immature Gran # (0.00-0.04) 10*3/uL Neutrophils # (1.80-7.70) 10*3/uL Lymphocytes # (0.90-5.00) 10*3/uL Eosinophils # (0.04-0.35) 10*3/uL ABG pO2 (83-108) mmHg ABG Total CO2 (19-24) mmol/L ABG O2 Saturation (94-97) % Sodium (137-145) mmol/L Chloride (98-107) mmol/L BUN (7-17) mg/dL Glucose (74-99) mg/dL POC Glucose (mg/dL) 156 H (70-110) mg/dL Calcium (8.4-10.2) mg/dL Microbiology - Last 24 Hours (Table) 12/29/24 09:47 Blood Culture - Preliminary Blood 12/29/24 14:26 Gram Stain - Preliminary Sputum Sputum Culture - Preliminary Streptococcus pneumoniae
--- NOTE | 2024-12-30 22:06 | P.CONS ---
History of Present Illness - Reason for Consult Consult date: 12/30/24 Antibiotic management Requesting physician: Wiley Stubbs - Chief Complaint Shortness of breath x few days - History of Present Illness Patient is a 69-year-old female with a past medical history significant for hypertension rheumatoid arthritis reflux COPD did have history of AICD anxiety depression, history of throat cancer on chemoradiation initially presented to hospital about 5 days ago after the patient was found to be on the floor apparently patient had got up to go to the bathroom and fell down in the bed with subsequent noticed to have firing of her AICD patient was subsequently brought into the ER and has been admitted to the floor subsequently developed increasing shortness of breath and become hypoxic for the patient was started on high flow oxygen subsequently and getting intubated and has been admitted to the ICU patient on presentation to the hospital was afebrile and no fever have been called subsequently patient not significantly tachycardic he has been hypotensive requiring pressor support currently on the ventilator requiring 80% FiO2 nursing staff did not mention there was concern for aspiration at the time of intubation patient did have elevated white count 15.28 with a left shift creatinine 0.98 blood culture has been obtained growing Streptococcus pneumoniae patient was started on Rocephin and Zithromax yesterday infectious disease was consulted for further management of antibiotic therapy most information has been obtained from review the chart talked with the family the patient is currently intubated on the vent I cannot provide any history Review of Systems Positive points has been mentioned in HPI complete review could not be obtained because patient intubated on the vent Past Medical History Past Medical History: Cancer, COPD, GERD/Reflux, Hypertension, Rheumatoid Arthritis (RA), Sleep Apnea/CPAP/BIPAP, Thyroid Disorder, Vascular Disorder Additional Past Medical History / Comment(s): USES CPAP MACHINE and O2 at 2L at night as well. STATES HX OF STOMACH ULCERS. Current "rash on right foot from flip flops". PAD. Throat cancer History of Any Multi-Drug Resistant Organisms: None Reported Past Surgical History: AICD, Heart Catheterization, Pacemaker Additional Past Surgical History / Comment(s): Defibrillator, bilateral cateract surgery, battery change on AICD/Pacemaker 10/2023. Past Anesthesia/Blood Transfusion Reactions: No Reported Reaction, Motion Sickness Type of Cardiac Device: AICD Device Placement Date:: 2012 Past Psychological History: Anxiety, Depression Additional Psychological History / Comment(s): Hospitalized February 2023, states almost had a mental breakdown. Smoking Status: Former smoker Past Alcohol Use History: None Reported Additional Past Alcohol Use History / Comment(s): STARTED SMOKING AT AGE 15, SMOKES <1/2 PPD, TRYING TO QUIT. RECOVERING ALCOHOLIC, NO ALCOHOL SINCE 1989. Past Drug Use History: None Reported - Past Family History Brother(s) Family Medical History: Deep Vein Thrombosis (DVT) Medications and Allergies Home Medications Medication Instructions Recorded Confirmed Type Albuterol Inhaler [Ventolin Hfa 2 puff INHALATION RT-QID PRN 02/10/18 12/25/24 History Inhaler] PARoxetine [Paxil] 20 mg PO DAILY 09/30/23 12/25/24 History Fluticasone/Umeclidin/Vilanter 1 puff INHALATION RT-DAILY 03/23/24 12/25/24 History [Trelegy Ellipta 100-62.5-25] Famotidine 20 mg PO DAILY 05/16/24 12/25/24 History amLODIPine [Norvasc] 2.5 mg PO DAILY 05/16/24 12/25/24 History Atorvastatin [Lipitor] 80 mg PO DAILY 10/09/24 12/25/24 History Levothyroxine Sodium [Synthroid] 88 mcg PO DAILY 10/09/24 12/25/24 History carvediloL [Coreg] 6.25 mg PO BID 10/09/24 12/25/24 History Furosemide [Lasix] 40 mg PO BID #60 tab 12/02/24 12/25/24 Rx Dapagliflozin Propanediol [Farxiga] 5 mg PO DAILY tab 12/20/24 12/25/24 Rx Nitroglycerin Sl Tabs [Nitrostat] 0.4 mg SUBLINGUAL Q5M PRN tab 12/20/24 12/25/24 Rx Potassium Chloride ER [K-Dur 20] 20 meq PO TID #30 tab 12/20/24 12/25/24 Rx Aspirin 325 mg PO DAILY #100 tab 12/28/24 Rx Allergies Allergy/AdvReac Type Severity Reaction Status Date / Time elastic Allergy Rash/Hives Uncoded 12/25/24 12:30 Physical Exam Vitals: Vital Signs Temp Pulse Resp BP Pulse Ox FiO2 12/30/24 12:00 84 12/30/24 11:48 80 12/30/24 11:47 83 12/30/24 10:00 84 15 94/69 97 12/30/24 09:45 84 16 108/72 97 12/30/24 09:30 85 14 102/72 97 12/30/24 09:15 85 15 105/69 97 12/30/24 09:00 87 21 99/67 97 12/30/24 08:45 86 14 97/71 97 12/30/24 08:30 86 16 104/66 97 12/30/24 08:23 85 12/30/24 08:15 88 18 103/64 96 12/30/24 08:05 84 12/30/24 08:00 97.6 F 87 14 99/65 96 80 12/30/24 07:45 87 15 90/77 96 12/30/24 07:30 88 16 89/70 96 12/30/24 07:15 88 18 100/62 96 12/30/24 07:00 87 15 89/62 96 12/30/24 06:45 87 18 95/71 96 12/30/24 06:30 86 14 101/59 96 12/30/24 06:15 85 15 95/69 96 12/30/24 06:00 84 14 97/83 97 12/30/24 05:55 80 12/30/24 05:45 84 15 111/71 98 12/30/24 05:30 84 15 105/48 99 12/30/24 05:15 80 10 L 85/62 98 12/30/24 05:07 85 12/30/24 05:00 85 14 98 100 12/30/24 04:59 85 12/30/24 04:45 85 14 100/65 98 12/30/24 04:30 84 14 101/63 98 12/30/24 04:15 85 14 95/61 98 12/30/24 04:00 96.3 F L 85 13 99/62 98 100 12/30/24 03:45 85 13 95/61 98 12/30/24 03:30 85 14 92/63 98 12/30/24 03:15 85 15 100/61 98 12/30/24 03:00 83 15 98/60 98 12/30/24 02:45 84 16 92/57 98 12/30/24 02:30 85 15 104/58 98 12/30/24 02:15 85 17 112/73 97 12/30/24 02:00 85 21 96 12/30/24 01:45 79 21 99 12/30/24 01:30 84 32 H 93/63 94 L 12/30/24 01:15 80 6 L 103/63 95 12/30/24 01:00 81 11 L 99/63 95 12/30/24 00:45 80 16 97/64 95 12/30/24 00:30 81 36 H 100/49 95 12/30/24 00:15 78 35 H 97/63 94 L 12/30/24 00:09 79 12/30/24 00:02 78 12/30/24 00:00 97.2 F L 77 18 102/71 94 L 100 12/29/24 23:45 78 18 95/65 94 L 12/29/24 23:30 76 27 H 91/65 94 L 12/29/24 23:15 72 11 L 94/56 94 L 12/29/24 23:00 75 21 93/67 94 L 12/29/24 22:45 76 21 96/64 94 L 12/29/24 22:30 71 19 93/61 95 12/29/24 22:15 75 16 92/42 95 12/29/24 22:00 73 19 87/61 95 12/29/24 21:45 68 17 92/54 96 12/29/24 21:30 68 19 88/48 95 12/29/24 21:15 70 22 93/48 95 12/29/24 21:07 70 12/29/24 21:00 67 18 104/56 95 100 12/29/24 20:58 64 12/29/24 20:45 66 19 78/55 94 L 12/29/24 20:30 68 21 90/56 93 L 12/29/24 20:15 65 10 L 79/41 12/29/24 20:00 96.2 F L 64 19 80/54 93 L 100 12/29/24 19:45 61 16 84/53 94 L 12/29/24 19:30 63 19 73/53 92 L 12/29/24 19:15 67 19 84/54 92 L 12/29/24 19:00 64 17 70/50 92 L 100 12/29/24 18:45 64 18 82/55 92 L 12/29/24 18:30 54 L 19 82/52 92 L 12/29/24 18:15 64 18 75/56 93 L 12/29/24 18:00 62 16 94/62 95 12/29/24 17:45 59 L 16 93/57 96 12/29/24 17:30 62 15 85/67 96 12/29/24 17:15 63 14 91/59 95 12/29/24 17:00 65 15 78/49 94 L 12/29/24 16:45 70 17 82/61 92 L 12/29/24 16:30 71 15 85/69 94 L 12/29/24 16:15 74 15 103/66 94 L 12/29/24 16:06 79 12/29/24 16:00 80 14 82/57 93 L 100 12/29/24 15:58 78 12/29/24 15:50 100 12/29/24 15:45 81 14 84/64 88 L 100 12/29/24 15:30 82 97/86 12/29/24 15:15 79 85/59 96 12/29/24 15:00 72 18 97/64 89 L 12/29/24 14:45 80/44 88 L 12/29/24 14:30 97.9 F 70 12 137/100 92 L 12/29/24 14:15 62 14 142/98 88 L 100 12/29/24 14:11 100 12/29/24 14:06 100 12/29/24 14:03 88 L 12/29/24 13:47 100 12/29/24 12:32 80 12/29/24 12:22 78 Intake and Output 12/29/24 12/30/24 12/30/24 22:59 06:59 14:59 Intake Total 2211.705 254.598 517.8 Output Total 560 330 145 Balance 1651.705 -75.402 372.8 Intake: IV 0 354 0.9 45 Azithromycin 500 mg In 250 Sodium Chloride 0.9% 250 ml @ 250 mls/hr IVPB DAILY [facility] Rx#:[id number] Pressure bag 9 Sodium Chloride 0.9% 1, 0 000 ml @ 999 mls/hr IV . Q1H1M [facility] Rx#:[id number] cefTRIAXone 2 gm In 50 Sodium Chloride 0.9% 50 ml @ 100 mls/hr IVPB Q24HR [facility] Rx#:[id number] Intake, IV Titration 2161.705 114.598 93.8 Amount Norepinephrine 8 mg In 37.185 26.426 Sodium Chloride 0.9% 250 ml @ 0.03 MCG/KG/MIN 3. 889 mls/hr IV .Q24H [facility] Rx#:[id number] Sodium Chloride 0.9% 1, 2000 000 ml @ 999 mls/hr IV . Q1H1M [facility] Rx#:[id number] propofoL 1,000 mg In 124.520 88.172 93.8 Empty Bag 1 bag @ 15 MCG/ KG/MIN 6.03 mls/hr IV . [id number] [facility] Rx#:[id number] Tube Feeding 20 80 40 Other 30 60 30 Output: Urine 560 330 145 Other: Voiding Method Indwelling Catheter Indwelling Catheter Indwelling Catheter # Bowel Movements 1 Weight 69 kg ABP, PAP, CO, CI - Last 8 Hours Arterial Blood Pressure 90/61 Arterial Blood Pressure 92/64 Arterial Blood Pressure 99/66 Arterial Blood Pressure 97/63 Arterial Blood Pressure 102/70 Arterial Blood Pressure 100/67 Arterial Blood Pressure 100/68 Arterial Blood Pressure 93/61 Arterial Blood Pressure 96/65 Arterial Blood Pressure 93/62 Arterial Blood Pressure 94/64 Arterial Blood Pressure 88/61 Arterial Blood Pressure 89/60 Arterial Blood Pressure 83/59 Arterial Blood Pressure 90/61 Arterial Blood Pressure 88/60 Arterial Blood Pressure 96/65 Arterial Blood Pressure 98/67 Arterial Blood Pressure 107/71 Arterial Blood Pressure 103/69 Arterial Blood Pressure 85/57 Arterial Blood Pressure 87/60 Arterial Blood Pressure 90/62 GENERAL DESCRIPTION: Elderly female intubated on the vent HEENT: Shows Pallor , no scleral icterus. Oral mucous membrane is dry. NECK: Trachea central, no thyromegaly. LUNGS: Unlabored breathing. Decreased breath sounds at the base HEART: S1, S2, regular rate and rhythm. No loud murmur ABDOMEN: Soft, no tenderness , guarding or rigidity, no organomegaly EXTREMITIES: No edema of feet. SKIN: No rash, no masses palpable. NEUROLOGICAL: The patient is sedated on the vent Results CBC & Chem 7: 12/30/24 04:17 12/30/24 20:20 Labs: Abnormal Lab Results - Last 24 Hours (Table) 12/29/24 12/29/24 12/29/24 Range/Units 07:41 11:05 13:02 WBC (4.50-10.00) 10*3/uL MCH (27.0-32.0) pg Immature Gran # (0.00-0.04) 10*3/uL Neutrophils # (1.80-7.70) 10*3/uL Lymphocytes # (0.90-5.00) 10*3/uL Eosinophils # (0.04-0.35) 10*3/uL ABG pH (7.35-7.45) ABG pCO2 (35-45) mmHg ABG pO2 (83-108) mmHg ABG HCO3 (21-25) mmol/L ABG Total CO2 (19-24) mmol/L ABG O2 Saturation (94-97) % Sodium 127 L (137-145) mmol/L Chloride 90 L (98-107) mmol/L BUN 39 H (7-17) mg/dL Glucose 132 H (74-99) mg/dL POC Glucose (mg/dL) 140 H (70-110) mg/dL Calcium (8.4-10.2) mg/dL Total Bilirubin 2.1 H (0.2-1.3) mg/dL AST 42 H (14-36) U/L ALT 57 H (4-34) U/L Total Protein 5.8 L (6.3-8.2) g/dL Cortisol 103.0 H (3.1-22.4) UG/DL 12/29/24 12/29/24 12/29/24 Range/Units 13:34 14:03 14:46 WBC (4.50-10.00) 10*3/uL MCH (27.0-32.0) pg Immature Gran # (0.00-0.04) 10*3/uL Neutrophils # (1.80-7.70) 10*3/uL Lymphocytes # (0.90-5.00) 10*3/uL Eosinophils # (0.04-0.35) 10*3/uL ABG pH 7.55 H 7.51 H (7.35-7.45) ABG pCO2 31 L 33 L (35-45) mmHg ABG pO2 39 L* 53 L* (83-108) mmHg ABG HCO3 27 H 27 H (21-25) mmol/L ABG Total CO2 28 H 28 H (19-24) mmol/L ABG O2 Saturation 78.1 L 88.8 L (94-97) % Sodium (137-145) mmol/L Chloride (98-107) mmol/L BUN (7-17) mg/dL Glucose (74-99) mg/dL POC Glucose (mg/dL) 143 H (70-110) mg/dL Calcium (8.4-10.2) mg/dL Total Bilirubin (0.2-1.3) mg/dL AST (14-36) U/L ALT (4-34) U/L Total Protein (6.3-8.2) g/dL Cortisol (3.1-22.4) UG/DL 12/29/24 12/30/24 12/30/24 Range/Units 23:56 04:17 04:17 WBC 15.28 H (4.50-10.00) 10*3/uL MCH 32.2 H (27.0-32.0) pg Immature Gran # 0.48 H (0.00-0.04) 10*3/uL Neutrophils # 14.03 H (1.80-7.70) 10*3/uL Lymphocytes # 0.21 L (0.90-5.00) 10*3/uL Eosinophils # 0.00 L (0.04-0.35) 10*3/uL ABG pH (7.35-7.45) ABG pCO2 (35-45) mmHg ABG pO2 (83-108) mmHg ABG HCO3 (21-25) mmol/L ABG Total CO2 (19-24) mmol/L ABG O2 Saturation (94-97) % Sodium 129 L (137-145) mmol/L Chloride 94 L (98-107) mmol/L BUN 38 H (7-17) mg/dL Glucose 175 H (74-99) mg/dL POC Glucose (mg/dL) 182 H (70-110) mg/dL Calcium 8.2 L (8.4-10.2) mg/dL Total Bilirubin (0.2-1.3) mg/dL AST (14-36) U/L ALT (4-34) U/L Total Protein (6.3-8.2) g/dL Cortisol (3.1-22.4) UG/DL 12/30/24 12/30/24 12/30/24 Range/Units 05:49 06:10 11:45 WBC (4.50-10.00) 10*3/uL MCH (27.0-32.0) pg Immature Gran # (0.00-0.04) 10*3/uL Neutrophils # (1.80-7.70) 10*3/uL Lymphocytes # (0.90-5.00) 10*3/uL Eosinophils # (0.04-0.35) 10*3/uL ABG pH (7.35-7.45) ABG pCO2 (35-45) mmHg ABG pO2 119 H (83-108) mmHg ABG HCO3 (21-25) mmol/L ABG Total CO2 26 H (19-24) mmol/L ABG O2 Saturation 98.6 H (94-97) % Sodium (137-145) mmol/L Chloride (98-107) mmol/L BUN (7-17) mg/dL Glucose (74-99) mg/dL POC Glucose (mg/dL) 186 H 166 H (70-110) mg/dL Calcium (8.4-10.2) mg/dL Total Bilirubin (0.2-1.3) mg/dL AST (14-36) U/L ALT (4-34) U/L Total Protein (6.3-8.2) g/dL Cortisol (3.1-22.4) UG/DL Microbiology - Last 24 Hours (Table) 12/29/24 14:26 Gram Stain - Preliminary Sputum Assessment and Plan (1) Sepsis Current Visit: Yes Status: Acute Code(s): A41.9 - SEPSIS, UNSPECIFIED ORGANISM SNOMED Code(s): 75419864 (2) Streptococcus pneumoniae infection Current Visit: Yes Status: Acute Code(s): A49.1 - STREPTOCOCCAL INFECTION, UNSPECIFIED SITE SNOMED Code(s): 64068979 (3) Pneumonia Current Visit: No Status: Acute Code(s): J18.9 - PNEUMONIA, UNSPECIFIED ORGANISM SNOMED Code(s): 809267011 Plan: 1patient presenting to the hospital with shortness of breath and there was concern for AICD fire subsequently worsening of respiratory status required intubation intubation in the ICU patient do have hypotension requiring pressor support elevated white count meeting currently for SIRS/sepsis source is likely pneumonia with a question of community-acquired versus aspiration pneumonia as the patient did have a history of throat cancer on chemoradiation and there was concern for aspiration the time of intubation sputum is currently showing Strep tococcus pneumoniae keeping in mind the patient has been on chemo and radiation will need to cover for drug-resistant pathogen 2-patient to continue with Rocephin however discontinue Zithromax we will add vancomycin while waiting for the sensitivity of the strep pneumo if it is a sensitive pathogen vancomycin to be discontinued at that point and if sensitive to Unasyn may consider switching the patient to Unasyn as there was concern for possible aspiration pneumonia Family the bedside question concern answered We will follow on clinical condition and cultures to further adjust medication if needed Thank you for this consultation we will follow the patient along with you Dictation was produced using [employer] dictation software. please excuse any grammatical, word or spelling errors. Time with Patient: Greater than 30
[2024-12-31 00:03] LABS: Glucose,Whole Blood 174 mg/dL (70-110)
[2024-12-31 03:52] LABS: HCT 35.7 % (37.2-46.3); HGB 12.8 g/dL (12.0-15.0); MCH 32.3 pg (27.0-32.0); MCHC 35.9 g/dL (32.0-37.0); MCV 90.2 fL (80.0-97.0); Platelet Count 137 10*3/uL (140-440); RBC 3.96 10*6/uL (4.10-5.20); RDW 15.6 % (11.5-14.5); WBC 13.58 10*3/uL (4.50-10.00)
[2024-12-31 04:27] LABS: African American GFR (CKD) >90 (>60 ml/min/1.73 sqM); Anion Gap 9 mmol/L; Blood Urea Nitrogen 32 mg/dL (7-17); Calcium 8.1 mg/dL (8.4-10.2); Carbon Dioxide 29 mmol/L (22-30); Chloride 90 mmol/L (98-107); Glucose 153 mg/dL (74-99); Magnesium 2.0 mg/dL (1.6-2.3); Non-African American GFR(CKD) 82 (>60 ml/min/1.73 sqM); Potassium 4.0 mmol/L (3.5-5.1); Sodium 128 mmol/L (137-145)
[2024-12-31 05:20] LABS: ABG HCO3 31 mmol/L (21-25); ABG PCO2 40 mmHg (35-45); ABG PH 7.49 (7.35-7.45); ABG PO2 137 mmHg (83-108); ABG TCO2 32 mmol/L (19-24)
[2024-12-31 05:44] LABS: Lymphocytes # (M) 0.41 k/uL (1.0-4.8); Monocytes # (M) 0.14 k/uL (0-1.0); Neutrophils # (M) 13.03 k/uL (1.3-7.7); Neutrophils % (M) 88 %; Total Cells Counted 100
[2024-12-31 06:01] LABS: Glucose,Whole Blood 147 mg/dL (70-110)
--- NOTE | 2024-12-31 06:49 | XR ---
EXAMINATION TYPE: XR chest 1V portable DATE OF EXAM: 12/31/2024 COMPARISON: 12/31/2019 CLINICAL INDICATION: Female, 69 years old with history of Tube placement; TECHNIQUE: Single frontal view of the chest is obtained. FINDINGS: The ET tube is 6 cm above the azael. There is an AICD device. There stable mild interstitial opacity in the lower lobes indicating either mild acute interstitial i nfiltrate or chronic interstitial change. There is no pleural effusion or pneumothorax. The osseous s tructures are intact. IMPRESSION: 1. ET tube 6 cm above the azael. NG tube within the stomach. 2. No change in the mild interstitial opacities in the lung bases [facility], , 12/31/2024 6:46 AM
[2024-12-31] MEDS: ASPIRIN 81 MG PO SCH (09:42)
[2024-12-31] MEDS: AZITHROMYCIN 500 MG in SODIUM CHLORIDE 0.9% 250 ML IVPB SCH (09:43)
[2024-12-31] MEDS: POTASSIUM BICARBONATE/CIT AC 20 MEQ TABLET.EFF PO SCH (09:55)
--- NOTE | 2024-12-31 10:50 | P.PN ---
Subjective Progress Note Date: 12/31/24 Principal diagnosis: Respiratory failure. Pulmonary consult dated December 29, 2024. 69-year-old female who looks much older than her stated age, who apparently comes into the emergency department, December 25, brought in by EMS, because apparently she was found down on the floor. She apparently was going to the bathroom, and fell, but did not hurt herself. She believes her defibrillator, went off, but she was not sure. She is not sure if she lost consciousness according to the [facility]. She apparently denied any chest pain, or difficulty breathing in the emergency department. Apparently, the patient was evaluated by cardiology, and, apparently there was an issue with the defibrillator. Anyway, the patient was all set to be discharged, but apparently last night, and then today, the patient developed some increasing shortness of breath, and, saturations are quite low, and the patient required more more oxygen, to the point where she was on Airvo. We were asked to see the patient because of her respiratory decline. Chest x-ray appears to show possible minimal infiltrate at the right lung base, she may have aspirated. She apparently has a history of throat cancer, undergoing both chemo and radiation therapy. The status of that is not known. In addition, according to the chart, she has a history of COPD, acid reflux disease, hypertension, rheumatoid arthritis, sleep apnea, hypothyroidism, among other things. She has had a heart catheterization, pacemaker, and AICD placement. We attempted to talk to the family about CODE STATUS. They were not sure of her CODE STATUS although in the chart, apparently she was not to be intubated. The was unsure. The daughter could not be reached. A blood gas was done, showing a PO2 of 39, PCO2 of 31, and a pH of 7.55. The patient was transferred to the intensive care unit. The blood gas was done on 100% oxygen. White count was 13.2, hemoglobin 15.7, hematocrit 43.1, and platelet count 189,000. Sodium was 127, potassium 4.7, chlorides 90, CO2 23, anion gap 14, BUN 39, creatinine 0.91. Glucose was 143. N-terminal proBNP was 1580. TSH was quite high at 15.1. Home medications included levothyroxine, which the patient may or may not be taking. Chest x-ray from earlier, shows a possible minimal infiltrate, right lower lobe. Apparently the patient has been evaluated by speech pathology. Progress note dated December 30, 2024. 69-year-old female who looks much older than her stated age. We saw her yesterday in consultation. Patient developed respiratory failure, presumably secondary to aspiration. Patient is currently on the ventilator. She is on volume assist-control, rate 14, tidal volume 450, FiO2 80%, PEEP of 10. Blood gases on 100% show pO2 of 119, pCO2 of 45, pH of 7.35. Art line and central line were placed yesterday. She is on propofol at 40 mcg/kg/min, norepinephrine at 2.8 mcg/min, and saline at 10 cc an hour. She is getting vital high-protein at 10 cc an hour. She continues on azithromycin and Rocephin for aspiration pneumonia. White count of 15.3, hemoglobin 13.9, hematocrit 39.4, platelet count 161,000. Sodium 129, potassium 3.7, chloride 94, CO2 25, BUN 38, creatinine 0.98. Glucose is 186. Calcium 8.2. Chest x-ray shows a small right-sided pleural effusion, and some minimal infiltrate, at the right lung base. Progress note dated December 31, 2024. 69-year-old female seen today in room 262. She remains on volume assist- control, rate 14, tidal volume 450, FiO2 60%, PEEP of 10. Gases on 80% show pO2 of 137, PCO2 of 40, pH of 7.49. She is getting propofol at 40 mcg/kg/min, saline at 15 cc an hour, and vital high-protein at 10 cc, with a goal of 38. The patient is currently on azithromycin and Rocephin. Vancomycin is discontinued. Sputum was positive for Streptococcus pneumoniae. White count 13.6, hemoglobin 12.8, hematocrit 35.7, platelet count 137,000. Sodium 128, potassium 4, chloride 90, CO2 29, BUN 32, creatinine 0.76. Glucose 147. Calcium 8.1. Chest x-ray continues to show bibasilar infiltrates or atelectasis. Objective - Vital Signs Vital signs: Vital Signs Temp 97.6 F 12/31/24 08:00 Pulse 91 12/31/24 10:30 Resp 16 12/31/24 10:30 BP 116/78 12/31/24 10:30 Pulse Ox 99 12/31/24 10:30 FiO2 80 12/31/24 08:12 Intake & Output 12/30/24 12/31/24 12/31/24 18:59 06:59 18:59 Intake Total 965.344 571.878 482 Output Total 1330 1085 200 Balance -364.656 -513.122 282 Weight 70.2 kg Intake: IV 534 198 372 0.9 195 165 60 Azithromycin 500 mg In 250 250 Sodium Chloride 0.9% 250 ml @ 250 mls/hr IVPB DAILY [facility] Rx#:[id number] Pressure bag 39 33 12 cefTRIAXone 2 gm In 50 50 Sodium Chloride 0.9% 50 ml @ 100 mls/hr IVPB Q24HR [facility] Rx#:[id number] Intake, IV Titration 201.344 173.878 100 Amount Norepinephrine 8 mg In 9.992 2.626 Sodium Chloride 0.9% 250 ml @ 0.03 MCG/KG/MIN 4. 005 mls/hr IV .Q24H [facility] Rx#:[id number] propofoL 1,000 mg In 191.352 171.252 100 Empty Bag 1 bag @ 15 MCG/ KG/MIN 6.03 mls/hr IV . [id number] [facility] Rx#:[id number] Tube Feeding 140 110 10 Other 90 90 Output: Urine 1330 1085 200 Other: Voiding Method Indwelling Catheter Indwelling Catheter # Bowel Movements 1 ABP, PAP, CO, CI - Last Documented Arterial Blood Pressure 124/67 - Exam No acute distress, sedated on propofol, with an orally placed endotracheal tube. HEENT examination is grossly unremarkable. Neck supple. Full range of motion. No adenopathy thyromegaly or neck vein distention. Cardiovascular examination reveals regular rhythm rate. S1-S2 normal. No S3 or S4. No discernible murmur noted. Heart sounds are distant. Lungs reveal scattered bilateral rhonchi. No wheezes or crackles. Breath sounds equal. Saturations are adequate. Abdomen soft bowel sounds are heard. No masses or tenderness. Extremities are intact. No cyanosis clubbing or edema. Skin is without rash or lesion. Neurologic examination cannot be assessed at this time. - Labs CBC & Chem 7: 12/31/24 03:40 12/31/24 03:40 Labs: Abnormal Lab Results - Last 24 Hours (Table) 12/30/24 12/30/24 12/30/24 Range/Units 11:45 18:02 20:20 WBC (4.50-10.00) 10*3/uL RBC (4.10-5.20) 10*6/uL Hct (37.2-46.3) % MCH (27.0-32.0) pg Plt Count (140-440) 10*3/uL Immature Gran # (0.00-0.04) 10*3/uL Neutrophils # (Manual) (1.3-7.7) k/uL Lymphocytes # (Manual) (1.0-4.8) k/uL ABG pH (7.35-7.45) ABG pO2 (83-108) mmHg ABG HCO3 (21-25) mmol/L ABG Total CO2 (19-24) mmol/L ABG O2 Saturation (94-97) % Sodium (137-145) mmol/L Potassium 3.4 L (3.5-5.1) mmol/L Chloride (98-107) mmol/L BUN (7-17) mg/dL Glucose (74-99) mg/dL POC Glucose (mg/dL) 166 H 156 H (70-110) mg/dL Calcium (8.4-10.2) mg/dL 12/31/24 12/31/24 12/31/24 Range/Units 00:02 03:40 03:40 WBC 13.58 H (4.50-10.00) 10*3/uL RBC 3.96 L (4.10-5.20) 10*6/uL Hct 35.7 L (37.2-46.3) % MCH 32.3 H (27.0-32.0) pg Plt Count 137 L (140-440) 10*3/uL Immature Gran # 0.78 H (0.00-0.04) 10*3/uL Neutrophils # (Manual) 13.03 H (1.3-7.7) k/uL Lymphocytes # (Manual) 0.41 L (1.0-4.8) k/uL ABG pH (7.35-7.45) ABG pO2 (83-108) mmHg ABG HCO3 (21-25) mmol/L ABG Total CO2 (19-24) mmol/L ABG O2 Saturation (94-97) % Sodium 128 L (137-145) mmol/L Potassium (3.5-5.1) mmol/L Chloride 90 L (98-107) mmol/L BUN 32 H (7-17) mg/dL Glucose 153 H (74-99) mg/dL POC Glucose (mg/dL) 174 H (70-110) mg/dL Calcium 8.1 L (8.4-10.2) mg/dL 12/31/24 12/31/24 Range/Units 05:17 06:00 WBC (4.50-10.00) 10*3/uL RBC (4.10-5.20) 10*6/uL Hct (37.2-46.3) % MCH (27.0-32.0) pg Plt Count (140-440) 10*3/uL Immature Gran # (0.00-0.04) 10*3/uL Neutrophils # (Manual) (1.3-7.7) k/uL Lymphocytes # (Manual) (1.0-4.8) k/uL ABG pH 7.49 H (7.35-7.45) ABG pO2 137 H (83-108) mmHg ABG HCO3 31 H (21-25) mmol/L ABG Total CO2 32 H (19-24) mmol/L ABG O2 Saturation 99.5 H (94-97) % Sodium (137-145) mmol/L Potassium (3.5-5.1) mmol/L Chloride (98-107) mmol/L BUN (7-17) mg/dL Glucose (74-99) mg/dL POC Glucose (mg/dL) 147 H (70-110) mg/dL Calcium (8.4-10.2) mg/dL Microbiology - Last 24 Hours (Table) 12/29/24 09:47 Blood Culture - Preliminary Blood 12/29/24 14:26 Gram Stain - Preliminary Sputum Sputum Culture - Preliminary Streptococcus pneumoniae Assessment and Plan Assessment: Acute hypoxemic respiratory failure, requiring intubation, and mechanical ventilation, December 29, 2024. Probable aspiration pneumonia, right lower lobe. S/P AICD placement. Prior history of heart catheterization. History of throat cancer, status post chemo/radiation. History of gastroesophageal reflux disease. History of hypertension. History of rheumatoid arthritis. History of hypothyroidism. History of sleep apnea syndrome. History of anxiety/depression. Prior history of tobacco use. Plan: Plan dated December 29, 2024. The patient will be transferred to the intensive care unit. The patient will require intubation and mechanical ventilation. The patient will require placement of lines. Additional recommendations and suggestions are forthcoming. The patient may have aspirated, and the patient will be placed on appropriate antibiotics. Chest x-ray shows a possible infiltrate in the right lower lobe. Prognosis is guarded. The patient does have a history of throat cancer, and apparently has received chemoradiation. There are some ambivalence about whether or not the patient was a full code, or did not want to be intubated. The apparently was not able to answer the question and the daughter was not able to be reached. Prognosis is guarded. Dictation was produced using [employer] software. Please excuse any grammatical, word or spelling errors. Plan dated December 30, 2024. The patient is seen today in room 262. The patient was intubated yesterday by anesthesia. We placed a arterial line, and central line, yesterday as well. She is on volume assist-control, rate 14, tidal volume 450, FiO2 80%, PEEP of 10. Blood gases were done on 100%. The patient is currently on propofol at 40 mcg/kg/min, norepinephrine at 2.8 mcg/min, saline at 10 cc an hour and vital high-protein at 10 cc an hour. He is currently on azithromycin and Rocephin for possible aspiration pneumonia. All labs, x-rays, medications are reviewed. Prognosis is guarded. We will continue to follow the patient. Dictation was produced using [employer] software. Please excuse any grammatical, word or spelling errors. Plan dated December 31, 2024. The patient is seen today in room 262. She remains on mechanical ventilator. Her FiO2 was 80%, now down to 60%, she is on PEEP of 10. She is on propofol at 40 mcg/kg/min, saline at 50 cc an hour, and vital HP, at 10 cc, with a goal of 38 cc an hour. The patient continues on azithromycin and Rocephin. Vancomycin discontinued. Sputum was positive for Streptococcus pneumoniae. All labs, x- rays, and medications are reviewed. We will continue to follow the patient, make recommendations. Not quite ready for weaning as yet. Prognosis is guarded. Dictation was produced using [employer] software. Please excuse any grammatical, word or spelling errors. Time with Patient: Less than 30
[2024-12-31 11:36] LABS: Glucose,Whole Blood 156 mg/dL (70-110)
[2024-12-31 12:04] LABS: Magnesium 1.9 mg/dL (1.6-2.3); Potassium 4.0 mmol/L (3.5-5.1)
[2024-12-31] MEDS: MAGNESIUM SULFATE-D5W PMX 1 GM in DEXTROSE/WATER 1 100ML.BAG IVPB ONE ×2 (12:58→22:32)
--- NOTE | 2024-12-31 16:07 | P.PN ---
Subjective Progress Note Date: 12/31/24 Principal diagnosis: Reason for follow-up is pneumonia Patient is a 69-year-old female with a past medical history significant for hypertension rheumatoid arthritis reflux COPD did have history of AICD anxiety depression, history of throat cancer on chemoradiation initially presented to hospital after repeated have a fall subsequent did have a worsening respiratory status requiring intubation admission in the ICU there was concern for pneumonia sputum with strep pneumo prompted this consultation On today's evaluation that is 12/31/2024, Patient is afebrile patient is currently intubated on the ventilator FiO2 at 80% no significant purulent secretion through the ED the patient is off the pressor support as reported by the nursing staff no other changes reported. The patient white count is down to 13.58 creatinine 0.76 sputum with the strep pneumo sensitive to ceftriaxone and Augmentin Objective - Vital Signs Vital signs: Vital Signs Temp 97.6 F 12/31/24 08:00 Pulse 89 12/31/24 11:58 Resp 14 12/31/24 11:15 BP 102/68 12/31/24 11:15 Pulse Ox 100 12/31/24 11:15 FiO2 80 12/31/24 11:43 Intake & Output 12/30/24 12/31/24 12/31/24 18:59 06:59 18:59 Intake Total 965.344 571.878 552.528 Output Total 1330 1085 240 Balance -364.656 -513.122 312.528 Weight 70.2 kg Intake: IV 534 198 390 0.9 195 165 75 Azithromycin 500 mg In 250 250 Sodium Chloride 0.9% 250 ml @ 250 mls/hr IVPB DAILY [facility] Rx#:[id number] Pressure bag 39 33 15 cefTRIAXone 2 gm In 50 50 Sodium Chloride 0.9% 50 ml @ 100 mls/hr IVPB Q24HR [facility] Rx#:[id number] Intake, IV Titration 201.344 173.878 152.528 Amount Norepinephrine 8 mg In 9.992 2.626 Sodium Chloride 0.9% 250 ml @ 0.03 MCG/KG/MIN 4. 005 mls/hr IV .Q24H [facility] Rx#:[id number] propofoL 1,000 mg In 191.352 171.252 152.528 Empty Bag 1 bag @ 15 MCG/ KG/MIN 6.03 mls/hr IV . [id number] [facility] Rx#:[id number] Tube Feeding 140 110 10 Other 90 90 Output: Urine 1330 1085 240 Other: Voiding Method Indwelling Catheter Indwelling Catheter Indwelling Catheter # Bowel Movements 1 ABP, PAP, CO, CI - Last Documented Arterial Blood Pressure 106/67 - Exam GENERAL DESCRIPTION: An elderly female intubated on the vent RESPIRATORY SYSTEM: Unlabored breathing , decreased breath sounds at bases HEART: S1 S2 regular rate and rhythm , ABDOMEN: Soft , no tenderness EXTREMITIES: No edema feet - Labs CBC & Chem 7: 12/31/24 03:40 12/31/24 11:36 Labs: Abnormal Lab Results - Last 24 Hours (Table) 12/30/24 12/30/24 12/31/24 Range/Units 18:02 20:20 00:02 WBC (4.50-10.00) 10*3/uL RBC (4.10-5.20) 10*6/uL Hct (37.2-46.3) % MCH (27.0-32.0) pg Plt Count (140-440) 10*3/uL Immature Gran # (0.00-0.04) 10*3/uL Neutrophils # (Manual) (1.3-7.7) k/uL Lymphocytes # (Manual) (1.0-4.8) k/uL ABG pH (7.35-7.45) ABG pO2 (83-108) mmHg ABG HCO3 (21-25) mmol/L ABG Total CO2 (19-24) mmol/L ABG O2 Saturation (94-97) % Sodium (137-145) mmol/L Potassium 3.4 L (3.5-5.1) mmol/L Chloride (98-107) mmol/L BUN (7-17) mg/dL Glucose (74-99) mg/dL POC Glucose (mg/dL) 156 H 174 H (70-110) mg/dL Calcium (8.4-10.2) mg/dL 12/31/24 12/31/24 12/31/24 Range/Units 03:40 03:40 05:17 WBC 13.58 H (4.50-10.00) 10*3/uL RBC 3.96 L (4.10-5.20) 10*6/uL Hct 35.7 L (37.2-46.3) % MCH 32.3 H (27.0-32.0) pg Plt Count 137 L (140-440) 10*3/uL Immature Gran # 0.78 H (0.00-0.04) 10*3/uL Neutrophils # (Manual) 13.03 H (1.3-7.7) k/uL Lymphocytes # (Manual) 0.41 L (1.0-4.8) k/uL ABG pH 7.49 H (7.35-7.45) ABG pO2 137 H (83-108) mmHg ABG HCO3 31 H (21-25) mmol/L ABG Total CO2 32 H (19-24) mmol/L ABG O2 Saturation 99.5 H (94-97) % Sodium 128 L (137-145) mmol/L Potassium (3.5-5.1) mmol/L Chloride 90 L (98-107) mmol/L BUN 32 H (7-17) mg/dL Glucose 153 H (74-99) mg/dL POC Glucose (mg/dL) (70-110) mg/dL Calcium 8.1 L (8.4-10.2) mg/dL 12/31/24 12/31/24 Range/Units 06:00 11:34 WBC (4.50-10.00) 10*3/uL RBC (4.10-5.20) 10*6/uL Hct (37.2-46.3) % MCH (27.0-32.0) pg Plt Count (140-440) 10*3/uL Immature Gran # (0.00-0.04) 10*3/uL Neutrophils # (Manual) (1.3-7.7) k/uL Lymphocytes # (Manual) (1.0-4.8) k/uL ABG pH (7.35-7.45) ABG pO2 (83-108) mmHg ABG HCO3 (21-25) mmol/L ABG Total CO2 (19-24) mmol/L ABG O2 Saturation (94-97) % Sodium (137-145) mmol/L Potassium (3.5-5.1) mmol/L Chloride (98-107) mmol/L BUN (7-17) mg/dL Glucose (74-99) mg/dL POC Glucose (mg/dL) 147 H 156 H (70-110) mg/dL Calcium (8.4-10.2) mg/dL Microbiology - Last 24 Hours (Table) 12/29/24 14:26 Gram Stain - Final Sputum Sputum Culture - Final Streptococcus pneumoniae 12/29/24 09:47 Blood Culture - Preliminary Blood Assessment and Plan (1) Sepsis Current Visit: Yes Status: Acute Code(s): A41.9 - SEPSIS, UNSPECIFIED ORGANISM SNOMED Code(s): 96993012 (2) Streptococcus pneumoniae infection Current Visit: Yes Status: Acute Code(s): A49.1 - STREPTOCOCCAL INFECTION, UNSPECIFIED SITE SNOMED Code(s): 79656687 (3) Pneumonia Current Visit: No Status: Acute Code(s): J18.9 - PNEUMONIA, UNSPECIFIED ORGANISM SNOMED Code(s): 783112475 Plan: 1patient presenting to the hospital with shortness of breath and there was concern for AICD fire subsequently worsening of respiratory status required intubation intubation in the ICU patient do have hypotension requiring pressor support elevated white count meeting currently for SIRS/sepsis source is likely pneumonia with a question of community-acquired versus aspiration pneumonia as the patient did have a history of throat cancer on chemoradiation and there was concern for aspiration the time of intubation sputum is currently showing Streptococcus pneumoniae keeping in mind the patient has been on chemo and radiation will need to cover for drug-resistant pathogen 2-patient is afebrile patient white count trending down sputum has been finalized with strep pneumo that is sensitive to ceftriaxone to continue vancomycin has been discontinued will monitor clinical course closely at the bedside question answered Dictation was produced using [employer] dictation software. please excuse any grammatical, word or spelling errors. Time with Patient: Less than 30
[2024-12-31 17:55] LABS: Glucose,Whole Blood 148 mg/dL (70-110)
--- NOTE | 2024-12-31 18:08 | P.PN ---
Subjective Progress Note Date: 12/31/24 History of present illness: This is a 69-year-old female patient of Dr. Greene with past medical history of nonischemic cardiomyopathy status post ICD, hypertension, dyslipidemia, tobacco use and dependence, PAT. We have been asked to evaluate the patient for defibrillator discharge and NSTEMI. Patient's states she came into the hospital because she was not able to walk. She stood to walk and she started falling. She denies loss of consciousness. Regarding the defibrillator discharge, patient does not recall having a shock from her defibrillator. She does not recall ever having a shock from her defibrillator. Patient apparently received a call from cardiology that the defibrillator went off. Patient was hospitalized earlier this month and was seen by cardiology at that time and also had elevated troponin with a flat pattern. Apparently shortness of breath has been going on for several weeks. Patient denies chest pain chest pressure or chest tightness. Blood pressure 101/68, heart rate 80, pulse ox 93% on room air. Patient has been afebrile. Device interrogation performed in October of this year revealed 92% left bundle pacing and no underlying arrhythmias. -EKG: Ventricularly paced rhythm. -Chest x-ray: No acute process. -Laboratory studies: Troponin 0.145, 0.147, 0.14. WBC 11.8, hemoglobin 15.3. Sodium 127 up from 125, potassium 3.2, BUN 26 creatinine 0.5. AST 57, ALT 65. -Home cardiac medications: Amlodipine 2.5 mg daily, atorvastatin 80 mg daily, Coreg 6.25 mg twice daily, Farxiga 5 mg daily, Lasix 40 mg twice daily, Nitrostat as needed, potassium chloride 20 mill equivalents 3 times daily. -Echocardiogram performed on 12/18/2024 revealed moderate severe global hypokinesis of the left ventricle with EF 35 to 40%, wire noted in the right ventricle. Mild mitral and tricuspid regurgitation. -Lexiscan Cardiolite stress test performed in the office on 09/27/2019 was inconclusive EKG part of the stress test due to baseline EKG abnormalities. Normal myocardial perfusion and function. -Cardiac catheterization in 2011 revealed EF 25%, normal coronary arteries. -09/30/2023 was a generator replacement for biventricular ICD, [employer]. 12/27/2024 Yesterday, NTP was discontinued. Interrogation reviewed. Patient was contacted by the ICD company regarding lead impedance. No shock was given. Patient denies chest pain or shortness of breath today. Blood pressure 117/83, heart rate 88, pulse ox 95% on 2 L nasal cannula. No repeat blood work today. 12/28/2024 Patient seen and examined. Previous interrogation of ICD obtained from the office which did show some lead impedance but is more so on the most recent study done this week. We will ask for Dr. Greene to review reports. Patient denies chest pain or shortness of breath. She still states she feels weak. Her states she has not been eating very much. Blood pressure 108/76, heart rate 78, pulse ox 93% on 2 L nasal cannula. Repeat blood work reveals WBC 12.6, hemoglobin 15.6, sodium 126, potassium 2.7, BUN 40 and creatinine 0.8. Triglycerides 306, cholesterol 220, LDL 111. 12/29/2024 Patient seen and examined. Dr. Greene has reviewed the interrogation reports and there is impedance of the leads for which patient will require LifeVest. Patient has had increased oxygen needs and increased O2 to 8 L possible aspiration pneumonia. Blood pressure 95/61, heart rate 82, pulse ox 91% on 8 L high flow nasal cannula. Repeat blood work reveals WBC 13.2, hemoglobin 15.7. Sodium 127, potassium 4.7, BUN 39 creatinine 0.91. Chest x-ray reveals airspace opacities at the lung bases. Aspiration or pneumonia most likely. 12/30/2024 Yesterday patient about intubated because of increased respiratory distress increased oxygen requirement possibly because of aspiration pneumonia and was transferred to ICU. Today she is examined in the ICU and currently on vent support. Telemetry has not shown any further ventricular arrhythmias. 12/31/2024 Maintained on ventilator support, FiO2 60%, Sputum is positive for Streptococcus pneumoniae. I faxed the LifeVest form yesterday Physical examination: Gen: This is 69-year-old female in no acute distress. VS: reviewed HEENT: Head is atraumatic, normocephalic. Pupils equal, round. Sclerae is anicteric. NECK: Supple. No JVD. LUNGS: Bilateral rhonchi. No intercostal retractions. HEART: Regular rate and rhythm. No murmur. ABDOMEN: Soft No tenderness. EXTREMITIES: No pedal edema. No calf tenderness. NEUROLOGICAL: Patient is awake, alert and oriented x3. Assessment: Possible ICD discharge has been ruled out by ICD interrogation Lead impedance on device interrogation Elevated troponin, flat pattern not indicative of acute coronary syndrome Hospitalization in early December with elevated troponins as well Nonischemic cardiomyopathy status post ICD Chronic systolic heart failure Hypertension Dyslipidemia Tobacco use and dependence PAT Acute hypoxic respiratory failure currently on 8 L nasal cannula Possible pneumonia Plan: Continue aspirin, Lipitor, Coreg 6.25 mg twice daily. Discontinue Farxiga as she is intubated Continue Lasix 40 twice daily Monitor potassium and magnesium levels. Keep potassium at 4, magnesium at 2 No need to repeat echocardiogram as this was performed on 12/18 Due to ICD lead impedance, patient will require LifeVest. Once a LifeVest is obtained, ICD will be turned off. Patient will need to be studied with Dr. Greene at a later time and this may occur as an outpatient Objective - Vital Signs Vital signs: Vital Signs Temp 97.9 F 12/31/24 16:00 Pulse 88 12/31/24 17:00 Resp 14 12/31/24 17:00 BP 107/87 12/31/24 17:00 Pulse Ox 99 12/31/24 17:00 FiO2 60 12/31/24 16:00 Intake & Output 12/30/24 12/31/24 12/31/24 18:59 06:59 18:59 Intake Total 965.344 571.878 678.528 Output Total 1330 1085 835 Balance -364.656 -513.122 -156.472 Weight 70.2 kg Intake: IV 534 198 516 0.9 195 165 180 Azithromycin 500 mg In 250 250 Sodium Chloride 0.9% 250 ml @ 250 mls/hr IVPB DAILY [facility] Rx#:[id number] Pressure bag 39 33 36 cefTRIAXone 2 gm In 50 50 Sodium Chloride 0.9% 50 ml @ 100 mls/hr IVPB Q24HR [facility] Rx#:[id number] Intake, IV Titration 201.344 173.878 152.528 Amount Norepinephrine 8 mg In 9.992 2.626 Sodium Chloride 0.9% 250 ml @ 0.03 MCG/KG/MIN 4. 005 mls/hr IV .Q24H [facility] Rx#:[id number] propofoL 1,000 mg In 191.352 171.252 152.528 Empty Bag 1 bag @ 15 MCG/ KG/MIN 6.03 mls/hr IV . [id number] [facility] Rx#:[id number] Tube Feeding 140 110 10 Other 90 90 Output: Urine 1330 1085 835 Other: Voiding Method Indwelling Catheter Indwelling Catheter Indwelling Catheter # Bowel Movements 1 ABP, PAP, CO, CI - Last Documented Arterial Blood Pressure 106/64 - Labs CBC & Chem 7: 12/31/24 03:40 12/31/24 11:36 Labs: Abnormal Lab Results - Last 24 Hours (Table) 12/30/24 12/31/24 12/31/24 Range/Units 20:20 00:02 03:40 WBC 13.58 H (4.50-10.00) 10*3/uL RBC 3.96 L (4.10-5.20) 10*6/uL Hct 35.7 L (37.2-46.3) % MCH 32.3 H (27.0-32.0) pg Plt Count 137 L (140-440) 10*3/uL Immature Gran # 0.78 H (0.00-0.04) 10*3/uL Neutrophils # (Manual) 13.03 H (1.3-7.7) k/uL Lymphocytes # (Manual) 0.41 L (1.0-4.8) k/uL ABG pH (7.35-7.45) ABG pO2 (83-108) mmHg ABG HCO3 (21-25) mmol/L ABG Total CO2 (19-24) mmol/L ABG O2 Saturation (94-97) % Sodium (137-145) mmol/L Potassium 3.4 L (3.5-5.1) mmol/L Chloride (98-107) mmol/L BUN (7-17) mg/dL Glucose (74-99) mg/dL POC Glucose (mg/dL) 174 H (70-110) mg/dL Calcium (8.4-10.2) mg/dL 12/31/24 12/31/24 12/31/24 Range/Units 03:40 05:17 06:00 WBC (4.50-10.00) 10*3/uL RBC (4.10-5.20) 10*6/uL Hct (37.2-46.3) % MCH (27.0-32.0) pg Plt Count (140-440) 10*3/uL Immature Gran # (0.00-0.04) 10*3/uL Neutrophils # (Manual) (1.3-7.7) k/uL Lymphocytes # (Manual) (1.0-4.8) k/uL ABG pH 7.49 H (7.35-7.45) ABG pO2 137 H (83-108) mmHg ABG HCO3 31 H (21-25) mmol/L ABG Total CO2 32 H (19-24) mmol/L ABG O2 Saturation 99.5 H (94-97) % Sodium 128 L (137-145) mmol/L Potassium (3.5-5.1) mmol/L Chloride 90 L (98-107) mmol/L BUN 32 H (7-17) mg/dL Glucose 153 H (74-99) mg/dL POC Glucose (mg/dL) 147 H (70-110) mg/dL Calcium 8.1 L (8.4-10.2) mg/dL 12/31/24/ Range/Units 11:34 17:53 WBC (4.50-10.00) 10*3/uL RBC (4.10-5.20) 10*6/uL Hct (37.2-46.3) % MCH (27.0-32.0) pg Plt Count (140-440) 10*3/uL Immature Gran # (0.00-0.04) 10*3/uL Neutrophils # (Manual) (1.3-7.7) k/uL Lymphocytes # (Manual) (1.0-4.8) k/uL ABG pH (7.35-7.45) ABG pO2 (83-108) mmHg ABG HCO3 (21-25) mmol/L ABG Total CO2 (19-24) mmol/L ABG O2 Saturation (94-97) % Sodium (137-145) mmol/L Potassium (3.5-5.1) mmol/L Chloride (98-107) mmol/L BUN (7-17) mg/dL Glucose (74-99) mg/dL POC Glucose (mg/dL) 156 H 148 H (70-110) mg/dL Calcium (8.4-10.2) mg/dL Microbiology - Last 24 Hours (Table) 12/29/24 09:47 Blood Culture - Preliminary Blood 12/29/24 14:26 Gram Stain - Final Sputum Sputum Culture - Final Streptococcus pneumoniae
[2024-12-31] MEDS: POTASSIUM BICARBONATE/CIT AC 20 MEQ TABLET.EFF NG-TUBE SCH (21:47)
--- NOTE | 2024-12-31 23:39 | PN ---
PROGRESS NOTE DATE OF SERVICE: 12/29/2024 CHIEF COMPLAINT: Syncope following cardiac arrhythmia. HISTORY OF PRESENT ILLNESS: This lady has deteriorated. She has dropped her pulse ox as well as her blood pressure. She has become more lethargic. She is hypotensive and A-team has been called. PHYSICAL EXAMINATION: VITAL SIGNS: Blood pressure is 95/60. She is also hypokalemic. PLAN: She will be moved to the intensive care unit. She is still FULL CODE. It is possible that some of this could be related to adrenal insufficiency since she was on a fairly high dose of steroids before her admission. Blood cultures have been ordered as well as ACTH and cortisol level. MMODL / IJN: [id number] /
[2024-12-31 23:44] LABS: Glucose,Whole Blood 195 mg/dL (70-110)
--- NOTE | 2024-12-31 23:54 | PN ---
PROGRESS NOTE DATE OF SERVICE: 12/30/2024 CHIEF COMPLAINT: Hypotension and hypoxia possibly secondary to aspiration pneumonia. HISTORY OF PRESENT ILLNESS: This lady is intubated now and on ventilator. There is a question of right [place] [address]. PHYSICAL EXAMINATION: GENERAL: She appears to be pale. She is sedated on the ventilator. CHEST: Breath sounds are heard bilaterally anteriorly. CARDIAC: Unremarkable. ABDOMEN: Soft, nontender. IMPRESSION: 1. Hypotension. 2. Respiratory failure. 3. Possible aspiration. 4. History of carcinoma of the larynx. 5. Chronic obstructive pulmonary disease. PLAN: Continue with ICU care and management with ventilator support and antibiotics. MMODL / IJN: [id number] /
--- NOTE | 2025-01-01 00:15 | PN ---
PROGRESS NOTE DATE OF SERVICE: 12/31/2024 CHIEF COMPLAINT: Respiratory failure and aspiration pneumonia. HISTORY OF PRESENT ILLNESS: This lady continues to be on ventilator with ventilator support. PHYSICAL EXAMINATION: GENERAL: She is sedated. She is pale. CHEST: Breath sounds are heard on both sides. CARDIAC: Normal. Peripheral perfusion was adequate. IMPRESSION: 1. Respiratory failure with hypotension. 2. Aspiration pneumonia. 3. Chronic obstructive pulmonary disease. 4. History of carcinoma of the larynx. PLAN: Continue with ICU management, antibiotics, and respiratory support. MMODL / IJN: [id number] /
[2025-01-01 04:46] LABS: African American GFR (CKD) >90 (>60 ml/min/1.73 sqM); Magnesium 2.6 mg/dL (1.6-2.3); Non-African American GFR(CKD) >90 (>60 ml/min/1.73 sqM)
[2025-01-01 05:39] LABS: HCT 37.6 % (37.2-46.3); HGB 13.2 g/dL (12.0-15.0); MCH 31.9 pg (27.0-32.0); MCHC 35.1 g/dL (32.0-37.0); MCV 90.8 fL (80.0-97.0); Platelet Count 143 10*3/uL (140-440); RBC 4.14 10*6/uL (4.10-5.20); RDW 15.9 % (11.5-14.5); WBC 13.49 10*3/uL (4.50-10.00)
[2025-01-01 05:43] LABS: ABG HCO3 36 mmol/L (21-25); ABG PCO2 42 mmHg (35-45); ABG PH 7.55 (7.35-7.45); ABG PO2 84 mmHg (83-108); ABG TCO2 37 mmol/L (19-24)
[2025-01-01 05:43] LABS: African American GFR (CKD) >90 (>60 ml/min/1.73 sqM); Anion Gap 9 mmol/L; Blood Urea Nitrogen 28 mg/dL (7-17); Calcium 8.3 mg/dL (8.4-10.2); Carbon Dioxide 32 mmol/L (22-30); Chloride 89 mmol/L (98-107); Glucose 163 mg/dL (74-99); Non-African American GFR(CKD) >90 (>60 ml/min/1.73 sqM); Potassium 3.8 mmol/L (3.5-5.1); Sodium 130 mmol/L (137-145)
[2025-01-01 05:46] LABS: Allen Test Performed? no
[2025-01-01] MEDS: POTASSIUM BICARBONATE/CIT AC 20 MEQ TABLET.EFF NG-TUBE SCH (05:54)
[2025-01-01 05:59] LABS: Lymphocytes # (M) 0.13 k/uL (1.0-4.8); Metamyelocytes # (M) 0.13 k/uL (0); Monocytes # (M) 0.40 k/uL (0-1.0); Myelocytes # (M) 0.13 k/uL (0); Neutrophils # (M) 12.68 k/uL (1.3-7.7); Neutrophils % (M) 80 %; Total Cells Counted 200
[2025-01-01 06:01] LABS: Toxic Granulation Present
[2025-01-01 06:04] LABS: Glucose,Whole Blood 141 mg/dL (70-110)
--- NOTE | 2025-01-01 08:12 | XR ---
EXAMINATION TYPE: XR chest 1V portable DATE OF EXAM: 01/01/2025 5:14 AM COMPARISON: 12/31/2024 CLINICAL INDICATION: Female, 69 years old with history of Tube placement, , FINDINGS: ET and NG tubes are satisfactory. Left anterior chest wall AICD generator with right knee [place], righ t ventricular, and coronary sinus leads. The coronary sinus lead is looped once near the inferior hea rt. Patient is obliqued and slightly rotated toward the left with the left apex obscured by the patie nt's chin. Some patchy opacities are present on the left. Mild hyperinflation. Extrarenal artifact on the right. Left CVC tip obscured by multiple overlying leads. IMPRESSION: COPD with some mild patchy areas of atelectasis versus developing infiltrates on the left. [facility], , 01/01/2025 8:10 AM
[2025-01-01] MEDS: DEXMEDETOMIDINE/0.9% NACL(PMX) 400 MCG in EMPTY BAG 1 BAG IV SCH (11:15)
[2025-01-01 11:28] LABS: Glucose,Whole Blood 219 mg/dL (70-110)
--- NOTE | 2025-01-01 11:43 | P.PN ---
Subjective Progress Note Date: 01/01/25 69-year-old female who looks much older than her stated age, who apparently comes into the emergency department, December 25, brought in by EMS, because apparently she was found down on the floor. She apparently was going to the bathroom, and fell, but did not hurt herself. She believes her defibrillator, went off, but she was not sure. She is not sure if she lost consciousness according to the ER [facility]. She apparently denied any chest pain, or difficulty breathing in the emergency department. Apparently, the patient was evaluated by cardiology, and, apparently there was an issue with the defibrillator. Anyway, the patient was all set to be discharged, but apparently last night, and then today, the patient developed some increasing shortness of breath, and, saturations are quite low, and the patient required more more oxygen, to the point where she was on Airvo. We were asked to see the patient because of her respiratory decline. Chest x-ray appears to show possible minimal infiltrate at the right lung base, she may have aspirated. She apparently has a history of throat cancer, undergoing both chemo and radiation therapy. The status of that is not known. In addition, according to the chart, she has a history of COPD, acid reflux disease, hypertension, rheumatoid arthritis, sleep apnea, hypothyroidism, among other things. She has had a heart catheterization, pacemaker, and AICD placement. We attempted to talk to the family about CODE STATUS. They were not sure of her CODE STATUS although in the chart, apparently she was not to be intubated. The was unsure. The daughter could not be reached. A blood gas was done, showing a PO2 of 39, PCO2 of 31, and a pH of 7 .55. The patient was transferred to the intensive care unit. The blood gas was done on 100% oxygen. White count was 13.2, hemoglobin 15.7, hematocrit 43.1, and platelet count 189,000. Sodium was 127, potassium 4.7, chlorides 90, CO2 23, anion gap 14, BUN 39, creatinine 0.91. Glucose was 143. N-terminal proBNP was 1580. TSH was quite high at 15.1. Home medications included levothyroxine, which the patient may or may not be taking. Chest x-ray from earlier, shows a possible minimal infiltrate, right lower lobe. Apparently the patient has been evaluated by speech pathology. Progress note dated December 30, 2024. 69-year-old female who looks much older than her stated age. We saw her ye sterday in consultation. Patient developed respiratory failure, presumably secondary to aspiration. Patient is currently on the ventilator. She is on volume assist-control, rate 14, tidal volume 450, FiO2 80%, PEEP of 10. Blood gases on 100% show pO2 of 119, pCO2 of 45, pH of 7.35. Art line and central line were placed yesterday. She is on propofol at 40 mcg/kg/min, norepinephrine at 2.8 mcg/min, and saline at 10 cc an hour. She is getting vital high-protein at 10 cc an hour. She continues on azithromycin and Rocephin for aspiration pneumonia. White count of 15.3, hemoglobin 13.9, hematocrit 39.4, platelet count 161,000. Sodium 129, potassium 3.7, chloride 94, CO2 25, BUN 38, creat inine 0.98. Glucose is 186. Calcium 8.2. Chest x-ray shows a small right- sided pleural effusion, and some minimal infiltrate, at the right lung base. Progress note dated December 31, 2024. 69-year-old female seen today in room 262. She remains on volume assist- control, rate 14, tidal volume 450, FiO2 60%, PEEP of 10. Gases on 80% show pO2 of 137, PCO2 of 40, pH of 7.49. She is getting propofol at 40 mcg/kg/min, saline at 15 cc an hour, and vital high-protein at 10 cc, with a goal of 38. The patient is currently on azithromycin and Rocephin. Vancomycin is discontinued. Sputum was positive for Streptococcus pneumoniae. White count 13.6, hemoglobin 12.8, hematocrit 35.7, platelet count 137,000. Sodium 128, potassium 4, chloride 90, CO2 29, BUN 32, creatinine 0.76. Glucose 147. Calc ium 8.1. Chest x-ray continues to show bibasilar infiltrates or atelectasis. On 01/01/2025, the patient is being seen for a follow-up. This morning, the patient has been weaned off the sedation and the patient is arousable and the patient is making good eye contact and following simple commands and answering questions. The patient is on assist-control mode of mechanical ventilation at rate of 14, tidal volume of 450, FiO2 of 50% and a PEEP of 10. The blood gas showed a pH of 7.55 with a WHL814 and PO284. The chest x-ray from today shows COPD with some mild patchy atelectatic changes in the left lung base. Hemodynamically stable. White cell count of 13.9, hemothirteen 0.2 and a platelet count of 143. Sodium is at 130 with a potassium level of 3.8, bicarbonate 32, BUN 28 with a creatinine of 0.6. The patient had a sputum sample that was positive for Streptococcus pneumonia and the patient remains on IV Rocephin. The patient remains on bronchodilators and the patient is currentl y on DuoNeb nebulized treatments [id number]. A bedside cuff leak test was done and the patient has adequate air movement around the ET tube and the patient is currently intubated with a #7 orotracheal tube and this intubation was done due to concerns of her previous history of throat cancer. Tube feeds are currently on hold, possible extubation today based on her progress. Objective - Vital Signs Vital signs: Vital Signs Temp 97.5 F L 01/01/25 04:00 Pulse 98 01/01/25 08:15 Resp 13 01/01/25 07:00 BP 104/68 01/01/25 07:00 Pulse Ox 98 01/01/25 07:00 FiO2 60 01/01/25 08:14 Intake & Output 12/31/24 01/01/25 01/01/25 18:59 06:59 18:59 Intake Total 678.528 910.504 48 Output Total 835 830 50 Balance -156.472 80.504 -2 Weight 70.7 kg Intake: IV 516 316 18 0.9 180 180 15 Azithromycin 500 mg In 250 Sodium Chloride 0.9% 250 ml @ 250 mls/hr IVPB DAILY [facility] Rx#:[id number] Magnesium Sulfate-D5w Pmx 100 1 gm In Dextrose/Water 1 100ml.bag @ 100 mls/hr IVPB ONCE [facility] Rx#: [id number] Pressure bag 36 36 3 cefTRIAXone 2 gm In 50 Sodium Chloride 0.9% 50 ml @ 100 mls/hr IVPB Q24HR [facility] Rx#:[id number] Intake, IV Titration 152.528 174.504 Amount propofoL 1,000 mg In 152.528 174.504 Empty Bag 1 bag @ 15 MCG/ KG/MIN 6.03 mls/hr IV . [id number] [facility] Rx#:[id number] Tube Feeding 10 330 30 Other 90 Output: Urine 835 830 50 Other: Voiding Method Indwelling Catheter Indwelling Catheter # Bowel Movements 1 ABP, PAP, CO, CI - Last Documented Arterial Blood Pressure 92/53 - Exam No acute distress, patient is currently off sedation, still on a mechanical ventilator and the patient is intubated by #7 orotracheal tube. HEENT examination is grossly unremarkable. Neck supple. Full range of motion. No adenopathy thyromegaly or neck vein distention. Cardiovascular examination reveals regular rhythm rate. S1-S2 normal. No S3 or S4. No discernible murmur noted. Heart sounds are distant. Lungs reveal scattered bilateral rhonchi. No wheezes or crackles. Breath sounds equal. Saturations are adequate. Abdomen soft bowel sounds are heard. No masses or tenderness. Extremities are intact. No cyanosis clubbing or edema. Skin is without rash or lesion. Neurologic examination is adequate and the patient is moving all 4 extremities and following simple commands while being off propofol. - Labs CBC & Chem 7: 01/01/25 03:47 01/01/25 03:47 Labs: Abnormal Lab Results - Last 24 Hours (Table) 12/31/24 12/31/24 12/31/24 Range/Units 11:34 17:53 20:30 WBC (4.50-10.00) 10*3/uL Immature Gran # (0.00-0.04) 10*3/uL Neutrophils # (Manual) (1.3-7.7) k/uL Lymphocytes # (Manual) (1.0-4.8) k/uL Metamyelocytes # (Man) (0) k/uL Myelocytes # (Manual) (0) k/uL ABG pH (7.35-7.45) ABG HCO3 (21-25) mmol/L ABG Total CO2 (19-24) mmol/L ABG O2 Saturation (94-97) % Sodium (137-145) mmol/L Potassium 3.1 L (3.5-5.1) mmol/L Chloride (98-107) mmol/L Carbon Dioxide (22-30) mmol/L BUN (7-17) mg/dL Glucose (74-99) mg/dL POC Glucose (mg/dL) 156 H 148 H (70-110) mg/dL Calcium (8.4-10.2) mg/dL Magnesium (1.6-2.3) mg/dL 12/31/24 01/01/25 01/01/25 Range/Units 23:43 03:47 03:47 WBC 13.49 H (4.50-10.00) 10*3/uL Immature Gran # 0.77 H (0.00-0.04) 10*3/uL Neutrophils # (Manual) 12.68 H (1.3-7.7) k/uL Lymphocytes # (Manual) 0.13 L (1.0-4.8) k/uL Metamyelocytes # (Man) 0.13 H (0) k/uL Myelocytes # (Manual) 0.13 H (0) k/uL ABG pH (7.35-7.45) ABG HCO3 (21-25) mmol/L ABG Total CO2 (19-24) mmol/L ABG O2 Saturation (94-97) % Sodium (137-145) mmol/L Potassium (3.5-5.1) mmol/L Chloride (98-107) mmol/L Carbon Dioxide (22-30) mmol/L BUN (7-17) mg/dL Glucose (74-99) mg/dL POC Glucose (mg/dL) 195 H (70-110) mg/dL Calcium (8.4-10.2) mg/dL Magnesium 2.6 H (1.6-2.3) mg/dL 01/01/25 01/01/25 01/01/25 Range/Units 03:47 05:41 06:03 WBC (4.50-10.00) 10*3/uL Immature Gran # (0.00-0.04) 10*3/uL Neutrophils # (Manual) (1.3-7.7) k/uL Lymphocytes # (Manual) (1.0-4.8) k/uL Metamyelocytes # (Man) (0) k/uL Myelocytes # (Manual) (0) k/uL ABG pH 7.55 H (7.35-7.45) ABG HCO3 36 H (21-25) mmol/L ABG Total CO2 37 H (19-24) mmol/L ABG O2 Saturation 97.6 H (94-97) % Sodium 130 L (137-145) mmol/L Potassium (3.5-5.1) mmol/L Chloride 89 L (98-107) mmol/L Carbon Dioxide 32 H (22-30) mmol/L BUN 28 H (7-17) mg/dL Glucose 163 H (74-99) mg/dL POC Glucose (mg/dL) 141 H (70-110) mg/dL Calcium 8.3 L (8.4-10.2) mg/dL Magnesium (1.6-2.3) mg/dL Microbiology - Last 24 Hours (Table) 12/29/24 09:47 Blood Culture - Preliminary Blood 12/29/24 14:26 Gram Stain - Final Sputum Sputum Culture - Final Streptococcus pneumoniae Assessment and Plan Plan: Acute hypoxemic respiratory failure, requiring intubation, and mechanical ventil ation, and the patient was intubated on 12/29/2024. The patient has a pneumococcal pneumonia involving the left lower lobe. Patient remains on IV Rocephin. Oxygenation is stable and improved. Chest x-ray findings are also stable. Left lower lobe pneumococcal pneumonia, currently on IV Rocephin Severe cardiomyopathy with systolic heart failure and impaired LV function and ejection fraction of 35 to 40% and moderate severe global hypokinesis of the left ventricle, S/P AICD placement and the patient has a biventricular AICD. 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 The most recent CT scan of the chest from 12/16/2024 showed asymmetric soft tissue fullness in the anterior hypopharynx at the level of the vocal cord with similar narrowing of the airway. History of gastroesophageal reflux disease. Hypertension. Rheumatoid arthritis. Hypothyroidism. History of sleep apnea syndrome. History of anxiety/depression. Prior history of tobacco use Plan: Continue ventilator support Dropped the PEEP down to 5 Discontinue the propofol Check weaning parameters A cuff leak was done at the bedside and the patient had adequate air movement around the orotracheal tube and the patient is currently intubated by #7 orotracheal tube. Continue IV Rocephin Continue bronchodilators Stop enteral feeding for now Check weaning parameters and assess readiness to wean and the patient will be given if spontaneous breathing trial at a later stage. Possible extubation today based on her progress. The patient remains hemodynamically stable. The patient is currently on Lasix 40 mg p.o. twice a day Synthroid 88 mcg p.o. daily Paxil 20 mg p.o. daily Continue aspirin 81 mg p.o. daily and Coreg 6.25 mg p.o. twice a day Continue high-dose statins and the patient is currently on Lipitor 80 mg p.o. daily Will continue to follow. Critical care evaluation that was done at 35 minutes.
[2025-01-01 12:03] LABS: ABG HCO3 36 mmol/L (21-25); ABG PCO2 36 mmHg (35-45); ABG PO2 68 mmHg (83-108); ABG TCO2 37 mmol/L (19-24); Allen Test Performed? Yes
[2025-01-01 12:10] LABS: ABG PH 7.61 (7.35-7.45)
[2025-01-01] MEDS ORDERED: DEXTROSE 50% SYRINGE 50 ML IVP PRN ×2 (12:14)
[2025-01-01] MEDS: INSULIN LISPRO (HumaLOG) 100 UNIT/ML 10 mL VL SQ SCH (13:47)
--- NOTE | 2025-01-01 14:05 | P.PN ---
Subjective Progress Note Date: 01/01/25 The patient is a 69-year-old female who is currently admitted to the hospital with possible ICD discharge as well as acute hypoxic respiratory failure. Patient was found to have ICD lead impedance, however there was no inappropriate discharge upon interrogation. She is currently on maximal medical treatment for cardiomyopathy and there has been an significant improvement in her LV function since left bundle pacing. Patient interviewed and examined resting comfortably in bed. She is currently on ventilator. GENERAL: Well-appearing, well-nourished and in no acute distress. NECK: Supple without JVD or thyromegaly. LUNGS: Breath sounds clear to auscultation bilaterally. Respiration equal and unlabored. No wheezes, rales or rhonchi. HEART: Regular rate and rhythm without murmurs, rubs or gallops. S1 and S2 heard. EXTREMITIES: Normal range of motion, no edema. No clubbing or cyanosis. Peripheral pulses intact and strong. LABS: WBC 13.49, hemoglobin 13.2, Choudhury crit 37.6, platelet 145, sodium 130, potassium 3.8, BUN 28, creatinine 0.68, magnesium 2.6 TELEMETRY: Paced rhythm IMPRESSION: Possible ICD discharge has been ruled out by ICD interrogation Lead impedance on device interrogation Elevated troponin, flat pattern not indicative of acute coronary syndrome Hospitalization in early December with elevated troponins as well Nonischemic cardiomyopathy, EF 35-40% Chronic systolic heart failure Hypertension Dyslipidemia Tobacco use and dependence PAT Acute hypoxic respiratory failure PLAN: ICD to be turned off due to lead impedance Recent ejection fraction 35 to 40%, significant improvement after left bundle pacing No need to be discharged with LifeVest, as her ejection fraction has improved Wean from ventilator as tolerated 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 Objective - Vital Signs Vital signs: Vital Signs Temp 98.1 F 01/01/25 08:00 Pulse 110 H 01/01/25 11:58 Resp 18 01/01/25 11:00 BP 140/84 01/01/25 11:00 Pulse Ox 95 01/01/25 11:00 FiO2 50 01/01/25 11:21 Intake & Output 12/31/24 01/01/25 01/01/25 18:59 06:59 18:59 Intake Total 678.528 910.504 412.976 Output Total 835 830 830 Balance -156.472 80.504 -417.024 Weight 70.7 kg Intake: IV 516 316 206 0.9 180 180 135 Azithromycin 500 mg In 250 Sodium Chloride 0.9% 250 ml @ 250 mls/hr IVPB DAILY [facility] Rx#:[id number] Magnesium Sulfate-D5w Pmx 100 1 gm In Dextrose/Water 1 100ml.bag @ 100 mls/hr IVPB ONCE ONE Rx#: [id number] Pressure bag 36 36 21 cefTRIAXone 2 gm In 50 50 Sodium Chloride 0.9% 50 ml @ 100 mls/hr IVPB Q24HR [facility] Rx#:[id number] Intake, IV Titration 152.528 174.504 48.976 Amount propofoL 1,000 mg In 152.528 174.504 48.976 Empty Bag 1 bag @ 15 MCG/ KG/MIN 6.03 mls/hr IV . [id number] [facility] Rx#:[id number] Tube Feeding 10 330 68 Other 90 90 Output: Urine 835 830 830 Other: Voiding Method Indwelling Catheter Indwelling Catheter # Bowel Movements 1 1 ABP, PAP, CO, CI - Last Documented Arterial Blood Pressure 139/77 - Labs CBC & Chem 7: 01/01/25 03:47 01/01/25 03:47 Labs: Abnormal Lab Results - Last 24 Hours (Table) 12/31/24 12/31/24 12/31/24 Range/Units 17:53 20:30 23:43 WBC (4.50-10.00) 10*3/uL Immature Gran # (0.00-0.04) 10*3/uL Neutrophils # (Manual) (1.3-7.7) k/uL Lymphocytes # (Manual) (1.0-4.8) k/uL Metamyelocytes # (Man) (0) k/uL Myelocytes # (Manual) (0) k/uL ABG pH (7.35-7.45) ABG pO2 (83-108) mmHg ABG HCO3 (21-25) mmol/L ABG Total CO2 (19-24) mmol/L ABG O2 Saturation (94-97) % Sodium (137-145) mmol/L Potassium 3.1 L (3.5-5.1) mmol/L Chloride (98-107) mmol/L Carbon Dioxide (22-30) mmol/L BUN (7-17) mg/dL Glucose (74-99) mg/dL POC Glucose (mg/dL) 148 H 195 H (70-110) mg/dL Calcium (8.4-10.2) mg/dL Magnesium (1.6-2.3) mg/dL 01/01/25 01/01/25 01/01/25 Range/Units 03:47 03:47 03:47 WBC 13.49 H (4.50-10.00) 10*3/uL Immature Gran # 0.77 H (0.00-0.04) 10*3/uL Neutrophils # (Manual) 12.68 H (1.3-7.7) k/uL Lymphocytes # (Manual) 0.13 L (1.0-4.8) k/uL Metamyelocytes # (Man) 0.13 H (0) k/uL Myelocytes # (Manual) 0.13 H (0) k/uL ABG pH (7.35-7.45) ABG pO2 (83-108) mmHg ABG HCO3 (21-25) mmol/L ABG Total CO2 (19-24) mmol/L ABG O2 Saturation (94-97) % Sodium 130 L (137-145) mmol/L Potassium (3.5-5.1) mmol/L Chloride 89 L (98-107) mmol/L Carbon Dioxide 32 H (22-30) mmol/L BUN 28 H (7-17) mg/dL Glucose 163 H (74-99) mg/dL POC Glucose (mg/dL) (70-110) mg/dL Calcium 8.3 L (8.4-10.2) mg/dL Magnesium 2.6 H (1.6-2.3) mg/dL 01/01/25 01/01/25 01/01/25 Range/Units 05:41 06:03 11:27 WBC (4.50-10.00) 10*3/uL Immature Gran # (0.00-0.04) 10*3/uL Neutrophils # (Manual) (1.3-7.7) k/uL Lymphocytes # (Manual) (1.0-4.8) k/uL Metamyelocytes # (Man) (0) k/uL Myelocytes # (Manual) (0) k/uL ABG pH 7.55 H (7.35-7.45) ABG pO2 (83-108) mmHg ABG HCO3 36 H (21-25) mmol/L ABG Total CO2 37 H (19-24) mmol/L ABG O2 Saturation 97.6 H (94-97) % Sodium (137-145) mmol/L Potassium (3.5-5.1) mmol/L Chloride (98-107) mmol/L Carbon Dioxide (22-30) mmol/L BUN (7-17) mg/dL Glucose (74-99) mg/dL POC Glucose (mg/dL) 141 H 219 H (70-110) mg/dL Calcium (8.4-10.2) mg/dL Magnesium (1.6-2.3) mg/dL 01/01/25 Range/Units 12:00 WBC (4.50-10.00) 10*3/uL Immature Gran # (0.00-0.04) 10*3/uL Neutrophils # (Manual) (1.3-7.7) k/uL Lymphocytes # (Manual) (1.0-4.8) k/uL Metamyelocytes # (Man) (0) k/uL Myelocytes # (Manual) (0) k/uL ABG pH 7.61 H* (7.35-7.45) ABG pO2 68 L (83-108) mmHg ABG HCO3 36 H (21-25) mmol/L ABG Total CO2 37 H (19-24) mmol/L ABG O2 Saturation (94-97) % Sodium (137-145) mmol/L Potassium (3.5-5.1) mmol/L Chloride (98-107) mmol/L Carbon Dioxide (22-30) mmol/L BUN (7-17) mg/dL Glucose (74-99) mg/dL POC Glucose (mg/dL) (70-110) mg/dL Calcium (8.4-10.2) mg/dL Magnesium (1.6-2.3) mg/dL Microbiology - Last 24 Hours (Table) 12/29/24 09:47 Blood Culture - Preliminary Blood 12/29/24 14:26 Gram Stain - Final Sputum Sputum Culture - Final Streptococcus pneumoniae
[2025-01-01 18:02] LABS: Glucose,Whole Blood 92 mg/dL (70-110)
[2025-01-01] MEDS ORDERED: Potassium Replacement Protocol 1 EACH MISC MISCELLANE PRN (18:23)
[2025-01-01] MEDS: POTASSIUM CHLORIDE 20 MEQ in WATER FOR INJECTION 1 100ML.BAG IVPB SCH (18:59)
[2025-01-02 01:19] LABS: Glucose,Whole Blood 84 mg/dL (70-110)
[2025-01-02 05:12] LABS: Glucose,Whole Blood 84 mg/dL (70-110)
[2025-01-02 07:30] LABS: Basophils # (A) 0.08 10*3/uL (0.00-0.10); Basophils % (A) 0.7 %; Eosinophils # (A) 0.03 10*3/uL (0.04-0.35); Eosinophils % (A) 0.3 %; HCT 33.0 % (37.2-46.3); HGB 11.7 g/dL (12.0-15.0); Lymphocytes # (A) 0.26 10*3/uL (0.90-5.00); Lymphocytes % (A) 2.3 %; MCH 32.3 pg (27.0-32.0); MCHC 35.5 g/dL (32.0-37.0); MCV 91.2 fL (80.0-97.0); Monocytes # (A) 0.57 10*3/uL (0.20-1.00); Monocytes % (A) 5.1 %; Neutrophils # (A) 9.76 10*3/uL (1.80-7.70); Neutrophils % (A) 86.9 %; Platelet Count 102 10*3/uL (140-440); RBC 3.62 10*6/uL (4.10-5.20); RDW 16.0 % (11.5-14.5); WBC 11.23 10*3/uL (4.50-10.00)
--- NOTE | 2025-01-02 08:09 | XR ---
EXAMINATION TYPE: XR chest 1V portable DATE OF EXAM: 01/02/2025 5:04 AM COMPARISON: 01/01/2025 CLINICAL INDICATION: Female, 69 years old with history of sob, increased secretions, coughing and o2, , FINDINGS: Left anterior chest wall AICD generator with right atrial, right ventricular, and coronary sinus lead s. Heart upper limits of normal in size. Hyperinflation. Patchy retrocardiac opacity may be slightly worsened. No sizable pleural effusion. Left CVC tip obscured by multiple overlying leads. IMPRESSION: COPD with slightly worsened patchy retrocardiac atelectasis and/or consolidation. [facility], Workstation: [facility], 01/02/2025 8:06 AM
[2025-01-02 09:03] LABS: African American GFR (CKD) >90 (>60 ml/min/1.73 sqM); Anion Gap 7 mmol/L; Blood Urea Nitrogen 23 mg/dL (7-17); Calcium 8.2 mg/dL (8.4-10.2); Carbon Dioxide 31 mmol/L (22-30); Chloride 96 mmol/L (98-107); Glucose 102 mg/dL (74-99); Non-African American GFR(CKD) >90 (>60 ml/min/1.73 sqM); Potassium 3.5 mmol/L (3.5-5.1); Sodium 134 mmol/L (137-145)
[2025-01-02] MEDS ORDERED: Potassium Replacement Protocol 1 EACH MISC MISCELLANE PRN (09:39)
[2025-01-02] MEDS: FAMOTIDINE 20 MG/2 ML VIAL IV SCH (09:49)
[2025-01-02] MEDS: POTASSIUM CHLORIDE 20 MEQ in WATER FOR INJECTION 1 100ML.BAG IVPB SCH (09:54)
[2025-01-02] MEDS: ENOXAPARIN 30 MG/0.3 ML SYRINGE SQ SCH (10:53)
[2025-01-02] MEDS: LACTATED RINGERS 1,000 ML IV SCH (10:53)
[2025-01-02] MEDS: methylPREDNISolone SOD SUCCI 40 MG/ML 1 ML VIAL IV SCH (10:53)
[2025-01-02] MEDS: FLUCONAZOLE IN NACL,ISO-OSM 100 MG in SALINE 1 50ML.BAG IVPB SCH (10:54)
[2025-01-02 11:49] LABS: Glucose,Whole Blood 110 mg/dL (70-110)
[2025-01-02] MEDS: CHLORHEXIDINE GLUCONATE 15 ML CUP MUCOUS MEM SCH (11:56)
--- NOTE | 2025-01-02 16:22 | P.PN ---
Subjective Progress Note Date: 01/01/25 Principal diagnosis: Reason for follow-up is pneumonia Patient is a 69-year-old female with a past medical history significant for hypertension rheumatoid arthritis reflux COPD did have history of AICD anxiety depression, history of throat cancer on chemoradiation initially presented to hospital after repeated have a fall subsequent did have a worsening respiratory status requiring intubation admission in the ICU there was concern for pneumonia sputum with strep pneumo prompted this consultation On today's evaluation that is 01/01/2025, patient has been afebrile, patient has been extubated and is breathing comfortably on 4 L nasal cannula oxygen patient is slightly lethargic though open eyes to the name on all the history provided no vomiting diarrhea reported Patient white count is 13.49 creatinine is 0.68 Objective - Vital Signs Vital signs: Vital Signs Temp 98.1 F 01/01/25 08:00 Pulse 110 H 01/01/25 11:58 Resp 18 01/01/25 11:00 BP 140/84 01/01/25 11:00 Pulse Ox 95 01/01/25 11:00 FiO2 50 01/01/25 11:21 Intake & Output 12/31/24 01/01/25 01/01/25 18:59 06:59 18:59 Intake Total 678.528 910.504 366.976 Output Total 835 830 480 Balance -156.472 80.504 -113.024 Weight 70.7 kg Intake: IV 516 316 160 0.9 180 180 95 Azithromycin 500 mg In 250 Sodium Chloride 0.9% 250 ml @ 250 mls/hr IVPB DAILY [facility] Rx#:[id number] Magnesium Sulfate-D5w Pmx 100 1 gm In Dextrose/Water 1 100ml.bag @ 100 mls/hr IVPB ONCE [facility] Rx#: [id number] Pressure bag 36 36 15 cefTRIAXone 2 gm In 50 50 Sodium Chloride 0.9% 50 ml @ 100 mls/hr IVPB Q24HR [facility] Rx#:[id number] Intake, IV Titration 152.528 174.504 48.976 Amount propofoL 1,000 mg In 152.528 174.504 48.976 Empty Bag 1 bag @ 15 MCG/ KG/MIN 6.03 mls/hr IV . [id number] [facility] Rx#:[id number] Tube Feeding 10 330 68 Other 90 90 Output: Urine 835 830 480 Other: Voiding Method Indwelling Catheter Indwelling Catheter # Bowel Movements 1 1 ABP, PAP, CO, CI - Last Documented Arterial Blood Pressure 139/77 - Exam GENERAL DESCRIPTION: An elderly female lying in bed in no distress RESPIRATORY SYSTEM: Unlabored breathing , decreased breath sounds at bases HEART: S1 S2 regular rate and rhythm , ABDOMEN: Soft , no tenderness EXTREMITIES: No edema feet - Labs CBC & Chem 7: 01/02/25 07:20 01/02/25 07:20 Labs: Abnormal Lab Results - Last 24 Hours (Table) 12/31/24 12/31/24 12/31/24 Range/Units 17:53 20:30 23:43 WBC (4.50-10.00) 10*3/uL Immature Gran # (0.00-0.04) 10*3/uL Neutrophils # (Manual) (1.3-7.7) k/uL Lymphocytes # (Manual) (1.0-4.8) k/uL Metamyelocytes # (Man) (0) k/uL Myelocytes # (Manual) (0) k/uL ABG pH (7.35-7.45) ABG pO2 (83-108) mmHg ABG HCO3 (21-25) mmol/L ABG Total CO2 (19-24) mmol/L ABG O2 Saturation (94-97) % Sodium (137-145) mmol/L Potassium 3.1 L (3.5-5.1) mmol/L Chloride (98-107) mmol/L Carbon Dioxide (22-30) mmol/L BUN (7-17) mg/dL Glucose (74-99) mg/dL POC Glucose (mg/dL) 148 H 195 H (70-110) mg/dL Calcium (8.4-10.2) mg/dL Magnesium (1.6-2.3) mg/dL 01/01/25 01/01/25 01/01/25 Range/Units 03:47 03:47 03:47 WBC 13.49 H (4.50-10.00) 10*3/uL Immature Gran # 0.77 H (0.00-0.04) 10*3/uL Neutrophils # (Manual) 12.68 H (1.3-7.7) k/uL Lymphocytes # (Manual) 0.13 L (1.0-4.8) k/uL Metamyelocytes # (Man) 0.13 H (0) k/uL Myelocytes # (Manual) 0.13 H (0) k/uL ABG pH (7.35-7.45) ABG pO2 (83-108) mmHg ABG HCO3 (21-25) mmol/L ABG Total CO2 (19-24) mmol/L ABG O2 Saturation (94-97) % Sodium 130 L (137-145) mmol/L Potassium (3.5-5.1) mmol/L Chloride 89 L (98-107) mmol/L Carbon Dioxide 32 H (22-30) mmol/L BUN 28 H (7-17) mg/dL Glucose 163 H (74-99) mg/dL POC Glucose (mg/dL) (70-110) mg/dL Calcium 8.3 L (8.4-10.2) mg/dL Magnesium 2.6 H (1.6-2.3) mg/dL 01/01/25 01/01/25 01/01/25 Range/Units 05:41 06:03 11:27 WBC (4.50-10.00) 10*3/uL Immature Gran # (0.00-0.04) 10*3/uL Neutrophils # (Manual) (1.3-7.7) k/uL Lymphocytes # (Manual) (1.0-4.8) k/uL Metamyelocytes # (Man) (0) k/uL Myelocytes # (Manual) (0) k/uL ABG pH 7.55 H (7.35-7.45) ABG pO2 (83-108) mmHg ABG HCO3 36 H (21-25) mmol/L ABG Total CO2 37 H (19-24) mmol/L ABG O2 Saturation 97.6 H (94-97) % Sodium (137-145) mmol/L Potassium (3.5-5.1) mmol/L Chloride (98-107) mmol/L Carbon Dioxide (22-30) mmol/L BUN (7-17) mg/dL Glucose (74-99) mg/dL POC Glucose (mg/dL) 141 H 219 H (70-110) mg/dL Calcium (8.4-10.2) mg/dL Magnesium (1.6-2.3) mg/dL 01/01/25 Range/Units 12:00 WBC (4.50-10.00) 10*3/uL Immature Gran # (0.00-0.04) 10*3/uL Neutrophils # (Manual) (1.3-7.7) k/uL Lymphocytes # (Manual) (1.0-4.8) k/uL Metamyelocytes # (Man) (0) k/uL Myelocytes # (Manual) (0) k/uL ABG pH 7.61 H* (7.35-7.45) ABG pO2 68 L (83-108) mmHg ABG HCO3 36 H (21-25) mmol/L ABG Total CO2 37 H (19-24) mmol/L ABG O2 Saturation (94-97) % Sodium (137-145) mmol/L Potassium (3.5-5.1) mmol/L Chloride (98-107) mmol/L Carbon Dioxide (22-30) mmol/L BUN (7-17) mg/dL Glucose (74-99) mg/dL POC Glucose (mg/dL) (70-110) mg/dL Calcium (8.4-10.2) mg/dL Magnesium (1.6-2.3) mg/dL Microbiology - Last 24 Hours (Table) 12/29/24 09:47 Blood Culture - Preliminary Blood 12/29/24 14:26 Gram Stain - Final Sputum Sputum Culture - Final Streptococcus pneumoniae Assessment and Plan (1) Sepsis Current Visit: Yes Status: Acute Code(s): A41.9 - SEPSIS, UNSPECIFIED ORGANISM SNOMED Code(s): 81413662 (2) Streptococcus pneumoniae infection Current Visit: Yes Status: Acute Code(s): A49.1 - STREPTOCOCCAL INFECTION, UNSPECIFIED SITE SNOMED Code(s): 33451197 (3) Pneumonia Current Visit: No Status: Acute Code(s): J18.9 - PNEUMONIA, UNSPECIFIED ORGANISM SNOMED Code(s): 881607438 Plan: 1patient presenting to the hospital with shortness of breath and there was concern for AICD fire subsequently worsening of respiratory status required intubation intubation in the ICU patient do have hypotension requiring pressor support elevated white count meeting currently for SIRS/sepsis source is likely pneumonia with a question of community-acquired versus aspiration pneumonia as the patient did have a history of throat cancer on chemoradiation and there was concern for aspiration the time of intubation sputum is currently showing Streptococcus pneumoniae that has been sensitive to ceftriaxone and Augmentin 2-patient is afebrile and the patient has been extubated white count is trending down to continue with Rocephin and monitor clinical course closely Dictation was produced using [employer] dictation software. please excuse any grammatical, word or spelling errors. Time with Patient: Less than 30
--- NOTE | 2025-01-02 16:22 | P.PN ---
Subjective Progress Note Date: 01/02/25 Principal diagnosis: Reason for follow-up is pneumonia Patient is a 69-year-old female with a past medical history significant for hypertension rheumatoid arthritis reflux COPD did have history of AICD anxiety depression, history of throat cancer on chemoradiation initially presented to hospital after repeated have a fall subsequent did have a worsening respiratory status requiring intubation admission in the ICU there was concern for pneumonia sputum with strep pneumo prompted this consultation On today's evaluation that is 01/02/2025, Patient is afebrile this morning patient is breathing comfortably currently on 5 L nasal cannula oxygen patient is slightly sleepy though arousable not a very good historian no vomiting or diarrhea reported. Patient white count is down to 11.23 creatinine 0.62 Objective - Vital Signs Vital signs: Vital Signs Temp 98.0 F 01/02/25 12:00 Pulse 94 01/02/25 15:59 Resp 8 L 01/02/25 13:00 BP 126/92 01/02/25 13:00 Pulse Ox 95 01/02/25 13:00 FiO2 50 01/01/25 12:00 Intake & Output 01/01/25 01/02/25 01/02/25 18:59 06:59 18:59 Intake Total 535.930 476 273.785 Output Total 1265 505 140 Balance -729.070 -29 133.785 Weight 71 kg 71 kg Intake: IV 321 276 263 0.9 235 240 120 Lactated Ringers 1,000 ml 75 @ 75 mls/hr IV .[id number] [facility] Rx#:[id number] Pressure bag 36 36 18 cefTRIAXone 2 gm In 50 50 Sodium Chloride 0.9% 50 ml @ 100 mls/hr IVPB Q24HR [facility] Rx#:[id number] Intake, IV Titration 56.930 200 10.785 Amount Dexmedetomidine/0.9% NaCl 7.954 0 10.785 (Pmx) 400 mcg In Empty Bag 1 bag @ 0.2 MCG/KG/HR 3.535 mls/hr IV .Q24H [facility] Rx#:[id number] Potassium Chloride 20 meq 200 In Water For Injection 1 100ml.bag @ 50 mls/hr IVPB Q2H [facility] Rx#: [id number] propofoL 1,000 mg In 48.976 Empty Bag 1 bag @ 15 MCG/ KG/MIN 6.03 mls/hr IV . [id number] [facility] Rx#:[id number] Tube Feeding 68 Other 90 Output: Urine 1265 505 140 Other: Voiding Method Indwelling Catheter Indwelling Catheter Indwelling Catheter # Bowel Movements 1 ABP, PAP, CO, CI - Last Documented Arterial Blood Pressure 133/68 - Exam GENERAL DESCRIPTION: An elderly female lying in bed in no distress RESPIRATORY SYSTEM: Unlabored breathing , decreased breath sounds at bases HEART: S1 S2 regular rate and rhythm , ABDOMEN: Soft , no tenderness EXTREMITIES: No edema feet - Labs CBC & Chem 7: 01/02/25 07:20 01/02/25 07:20 Labs: Abnormal Lab Results - Last 24 Hours (Table) 01/01/25 01/02/25 01/02/25 Range/Units 18:00 04:20 07:20 WBC 11.23 H (4.50-10.00) 10*3/uL RBC 3.62 L (4.10-5.20) 10*6/uL Hgb 11.7 L (12.0-15.0) g/dL Hct 33.0 L (37.2-46.3) % MCH 32.3 H (27.0-32.0) pg Plt Count 102 L (140-440) 10*3/uL Immature Gran # 0.53 H (0.00-0.04) 10*3/uL Neutrophils # 9.76 H (1.80-7.70) 10*3/uL Lymphocytes # 0.26 L (0.90-5.00) 10*3/uL Eosinophils # 0.03 L (0.04-0.35) 10*3/uL Sodium (137-145) mmol/L Potassium 2.8 L (3.5-5.1) mmol/L Chloride (98-107) mmol/L Carbon Dioxide (22-30) mmol/L BUN (7-17) mg/dL Glucose (74-99) mg/dL Hemoglobin A1c 6.9 H (<=6.0) % Calcium (8.4-10.2) mg/dL 01/02/25 Range/Units 07:20 WBC (4.50-10.00) 10*3/uL RBC (4.10-5.20) 10*6/uL Hgb (12.0-15.0) g/dL Hct (37.2-46.3) % MCH (27.0-32.0) pg Plt Count (140-440) 10*3/uL Immature Gran # (0.00-0.04) 10*3/uL Neutrophils # (1.80-7.70) 10*3/uL Lymphocytes # (0.90-5.00) 10*3/uL Eosinophils # (0.04-0.35) 10*3/uL Sodium 134 L (137-145) mmol/L Potassium (3.5-5.1) mmol/L Chloride 96 L (98-107) mmol/L Carbon Dioxide 31 H (22-30) mmol/L BUN 23 H (7-17) mg/dL Glucose 102 H (74-99) mg/dL Hemoglobin A1c (<=6.0) % Calcium 8.2 L (8.4-10.2) mg/dL Microbiology - Last 24 Hours (Table) 12/29/24 09:47 Blood Culture - Preliminary Blood Assessment and Plan (1) Sepsis Current Visit: Yes Status: Acute Code(s): A41.9 - SEPSIS, UNSPECIFIED ORGANISM SNOMED Code(s): 33443177 (2) Streptococcus pneumoniae infection Current Visit: Yes Status: Acute Code(s): A49.1 - STREPTOCOCCAL INFECTION, UNSPECIFIED SITE SNOMED Code(s): 25286869 (3) Pneumonia Current Visit: No Status: Acute Code(s): J18.9 - PNEUMONIA, UNSPECIFIED ORGANISM SNOMED Code(s): 771266170 Plan: 1patient presenting to the hospital with shortness of breath and there was concern for AICD fire subsequently worsening of respiratory status required intubation intubation in the ICU patient do have hypotension requiring pressor support elevated white count meeting currently for SIRS/sepsis source is likely pneumonia with a question of community-acquired versus aspiration pneumonia as the patient did have a history of throat cancer on chemoradiation and there was concern for aspiration the time of intubation sputum is currently showing Streptococcus pneumoniae that has been sensitive to ceftriaxone and Augmentin 2-patient is afebrile white count is down to 11,000, the patient is currently being treated with Rocephin and monitor clinical course closely Dictation was produced using [employer] dictation software. please excuse any grammatical, word or spelling errors. Time with Patient: Less than 30
[2025-01-02 17:51] LABS: Glucose,Whole Blood 154 mg/dL (70-110)
--- NOTE | 2025-01-02 19:32 | P.PN ---
Subjective Progress Note Date: 01/02/25 69-year-old female who looks much older than her stated age, who apparently comes into the emergency department, December 25, brought in by EMS, because apparently she was found down on the floor. She apparently was going to the bathroom, and fell, but did not hurt herself. She believes her defibrillator, went off, but she was not sure. She is not sure if she lost consciousness according to the [facility]. She apparently denied any chest pain, or difficulty breathing in the emergency department. Apparently, the patient was evaluated by cardiology, and, apparently there was an issue with the defibrillator. Anyway, the patient was all set to be discharged, but apparently last night, and then today, the patient developed some increasing shortness of breath, and, saturations are quite low, and the patient required more more oxygen, to the point where she was on Airvo. We were asked to see the patient because of her respiratory decline. Chest x-ray appears to show possible minimal infiltrate at the right lung base, she may have aspirated. She apparently has a history of throat cancer, undergoing both chemo and radiation therapy. The status of that is not known. In addition, according to the chart, she has a history of COPD, acid reflux disease, hypertension, rheumatoid arthritis, sleep apnea, hypothyroidism, among other things. She has had a heart catheterization, pacemaker, and AICD placement. We attempted to talk to the family about CODE STATUS. They were not sure of her CODE STATUS although in the chart, apparently she was not to be intubated. The was unsure. The daughter could not be reached. A blood gas was done, showing a PO2 of 39, PCO2 of 31, and a pH of 7 .55. The patient was transferred to the intensive care unit. The blood gas was done on 100% oxygen. White count was 13.2, hemoglobin 15.7, hematocrit 43.1, and platelet count 189,000. Sodium was 127, potassium 4.7, chlorides 90, CO2 23, anion gap 14, BUN 39, creatinine 0.91. Glucose was 143. N-terminal proBNP was 1580. TSH was quite high at 15.1. Home medications included levothyroxine, which the patient may or may not be taking. Chest x-ray from earlier, shows a possible minimal infiltrate, right lower lobe. Apparently the patient has been evaluated by speech pathology. Progress note dated December 30, 2024. 69-year-old female who looks much older than her stated age. We saw her ye sterday in consultation. Patient developed respiratory failure, presumably secondary to aspiration. Patient is currently on the ventilator. She is on volume assist-control, rate 14, tidal volume 450, FiO2 80%, PEEP of 10. Blood gases on 100% show pO2 of 119, pCO2 of 45, pH of 7.35. Art line and central line were placed yesterday. She is on propofol at 40 mcg/kg/min, norepinephrine at 2.8 mcg/min, and saline at 10 cc an hour. She is getting vital high-protein at 10 cc an hour. She continues on azithromycin and Rocephin for aspiration pneumonia. White count of 15.3, hemoglobin 13.9, hematocrit 39.4, platelet count 161,000. Sodium 129, potassium 3.7, chloride 94, CO2 25, BUN 38, creat inine 0.98. Glucose is 186. Calcium 8.2. Chest x-ray shows a small right- sided pleural effusion, and some minimal infiltrate, at the right lung base. Progress note dated December 31, 2024. 69-year-old female seen today in room 262. She remains on volume assist- control, rate 14, tidal volume 450, FiO2 60%, PEEP of 10. Gases on 80% show pO2 of 137, PCO2 of 40, pH of 7.49. She is getting propofol at 40 mcg/kg/min, saline at 15 cc an hour, and vital high-protein at 10 cc, with a goal of 38. The patient is currently on azithromycin and Rocephin. Vancomycin is discontinued. Sputum was positive for Streptococcus pneumoniae. White count 13.6, hemoglobin 12.8, hematocrit 35.7, platelet count 137,000. Sodium 128, potassium 4, chloride 90, CO2 29, BUN 32, creatinine 0.76. Glucose 147. Calc ium 8.1. Chest x-ray continues to show bibasilar infiltrates or atelectasis. On 01/01/2025, the patient is being seen for a follow-up. This morning, the patient has been weaned off the sedation and the patient is arousable and the patient is making good eye contact and following simple commands and answering questions. The patient is on assist-control mode of mechanical ventilation at rate of 14, tidal volume of 450, FiO2 of 50% and a PEEP of 10. The blood gas showed a pH of 7.55 with a TSA171 and PO284. The chest x-ray from today shows COPD with some mild patchy atelectatic changes in the left lung base. Hemodynamically stable. White cell count of 13.9, hemothirteen 0.2 and a platelet count of 143. Sodium is at 130 with a potassium level of 3.8, bicarbonate 32, BUN 28 with a creatinine of 0.6. The patient had a sputum sample that was positive for Streptococcus pneumonia and the patient remains on IV Rocephin. The patient remains on bronchodilators and the patient is currentl y on DuoNeb nebulized treatments [id number]. A bedside cuff leak test was done and the patient has adequate air movement around the ET tube and the patient is currently intubated with a #7 orotracheal tube and this intubation was done due to concerns of her previous history of throat cancer. Tube feeds are currently on hold, possible extubation today based on her progress. On 01/02/2025, the patient is being seen for a follow-up. The patient has been weaned off the mechanical ventilator and the patient was extubated and the patient is currently on 2 L of oxygen by nasal cannula. The patient is having some difficulty in swallowing. The cough is weak. No significant respiratory distress. She failed a bedside swallow and the patient will have an official swallow evaluation. Meanwhile, the patient has been kept NPO. She remains on the lactated Ringer at rate of 75 cc an hour. She was also noted to have oropharyngeal candidiasis. She is awake and alert and communicating. The chest x-ray from this morning shows COPD with slightly worsening patchy retrocardiac atelectasis. The patient's WBC count is 11.2 with a hemoglobin of 11.7 and a platelet count of 102. BUN is 23 with a creatinine 0.6. Sodium level is 134 and a potassium level is at 3.5. The patient remains on IV Rocephin 2 g every 24 hours as the patient sputum sample was positive for strep pneumo. The pat ient remains on DuoNeb treatments [id number]. The patient is on Coreg 6.25 mg p.o. twice a day, Synthroid 88 mcg p.o. daily, and Lipitor 80 mg p.o. daily. She is also on aspirin. There is generalized profound weakness in all 4 extremities. Nevertheless, the patient is able to move all 4 extremities and she is following simple commands. Coffee mechanism remains weak. Objective - Vital Signs Vital signs: Vital Signs Temp 98.2 F 01/02/25 04:00 Pulse 107 H 01/02/25 10:00 Resp 9 L 01/02/25 10:00 BP 140/90 01/02/25 10:00 Pulse Ox 93 L 01/02/25 10:00 FiO2 50 01/01/25 12:00 Intake & Output 01/01/25 01/02/25 01/02/25 18:59 06:59 18:59 Intake Total 535.930 476 102.785 Output Total 1265 505 95 Balance -729.070 -29 7.785 Weight 71 kg Intake: IV 321 276 92 0.9 235 240 80 Pressure bag 36 36 12 cefTRIAXone 2 gm In 50 Sodium Chloride 0.9% 50 ml @ 100 mls/hr IVPB Q24HR [facility] Rx#:[id number] Intake, IV Titration 56.930 200 10.785 Amount Dexmedetomidine/0.9% NaCl 7.954 0 10.785 (Pmx) 400 mcg In Empty Bag 1 bag @ 0.2 MCG/KG/HR 3.535 mls/hr IV .Q24H [facility] Rx#:[id number] Potassium Chloride 20 meq 200 In Water For Injection 1 100ml.bag @ 50 mls/hr IVPB Q2H [facility] Rx#: [id number] propofoL 1,000 mg In 48.976 Empty Bag 1 bag @ 15 MCG/ KG/MIN 6.03 mls/hr IV . [id number] [facility] Rx#:[id number] Tube Feeding 68 Other 90 Output: Urine 1265 505 95 Other: Voiding Method Indwelling Catheter Indwelling Catheter Indwelling Catheter # Bowel Movements 1 ABP, PAP, CO, CI - Last Documented Arterial Blood Pressure 146/70 - Exam No acute distress, patient is extubated and the patient is currently on 2 L of oxygen by nasal cannula. No significant respiratory distress. HEENT examination is grossly unremarkable. No stridor noted on physical examination. Neck supple. Full range of motion. No adenopathy thyromegaly or neck vein distention. Cardiovascular examination reveals regular rhythm rate. S1-S2 normal. No S3 or S4. No discernible murmur noted. Heart sounds are distant. Lungs reveal scattered bilateral rhonchi. No wheezes or crackles. Breath sounds equal. Saturations are adequate. Abdomen soft bowel sounds are heard. No masses or tenderness. Extremities are intact. No cyanosis clubbing or edema. Skin is without rash or lesion. Neurologic examination is adequate and the patient is moving all 4 extremities and generalized global weakness in all 4 extremities. Neurologic exam is nonfocal. The patient is following commands and she seems to be appropriate at this point in time. - Labs CBC & Chem 7: 01/02/25 07:20 01/02/25 07:20 Labs: Abnormal Lab Results - Last 24 Hours (Table) 01/01/25 01/01/25 01/01/25 Range/Units 11:27 12:00 18:00 WBC (4.50-10.00) 10*3/uL RBC (4.10-5.20) 10*6/uL Hgb (12.0-15.0) g/dL Hct (37.2-46.3) % MCH (27.0-32.0) pg Plt Count (140-440) 10*3/uL Immature Gran # (0.00-0.04) 10*3/uL Neutrophils # (1.80-7.70) 10*3/uL Lymphocytes # (0.90-5.00) 10*3/uL Eosinophils # (0.04-0.35) 10*3/uL ABG pH 7.61 H* (7.35-7.45) ABG pO2 68 L (83-108) mmHg ABG HCO3 36 H (21-25) mmol/L ABG Total CO2 37 H (19-24) mmol/L Sodium (137-145) mmol/L Potassium 2.8 L (3.5-5.1) mmol/L Chloride (98-107) mmol/L Carbon Dioxide (22-30) mmol/L BUN (7-17) mg/dL Glucose (74-99) mg/dL POC Glucose (mg/dL) 219 H (70-110) mg/dL Hemoglobin A1c (<=6.0) % Calcium (8.4-10.2) mg/dL 01/02/25 01/02/25 01/02/25 Range/Units 04:20 07:20 07:20 WBC 11.23 H (4.50-10.00) 10*3/uL RBC 3.62 L (4.10-5.20) 10*6/uL Hgb 11.7 L (12.0-15.0) g/dL Hct 33.0 L (37.2-46.3) % MCH 32.3 H (27.0-32.0) pg Plt Count 102 L (140-440) 10*3/uL Immature Gran # 0.53 H (0.00-0.04) 10*3/uL Neutrophils # 9.76 H (1.80-7.70) 10*3/uL Lymphocytes # 0.26 L (0.90-5.00) 10*3/uL Eosinophils # 0.03 L (0.04-0.35) 10*3/uL ABG pH (7.35-7.45) ABG pO2 (83-108) mmHg ABG HCO3 (21-25) mmol/L ABG Total CO2 (19-24) mmol/L Sodium 134 L (137-145) mmol/L Potassium (3.5-5.1) mmol/L Chloride 96 L (98-107) mmol/L Carbon Dioxide 31 H (22-30) mmol/L BUN 23 H (7-17) mg/dL Glucose 102 H (74-99) mg/dL POC Glucose (mg/dL) (70-110) mg/dL Hemoglobin A1c 6.9 H (<=6.0) % Calcium 8.2 L (8.4-10.2) mg/dL Microbiology - Last 24 Hours (Table) 12/29/24 09:47 Blood Culture - Preliminary Blood Assessment and Plan Plan: Acute hypoxemic respiratory failure, requiring intubation, and mechanical ventilation, and the patient was intubated on 12/29/2024. The patient has a pneumococcal pneumonia involving the left lower lobe. Patient remains on IV Rocephin. Patient was extubated on 01/01/2025 and the patient is currently on 2 L of oxygen by nasal cannula. Chest x-ray continues to show a left lower lobe consolidation. Left lower lobe pneumococcal pneumonia, currently on IV Rocephin Severe cardiomyopathy with systolic heart failure and impaired LV function and ejection fraction of 35 to 40% and moderate severe global hypokinesis of the left ventricle, S/P AICD placement and the patient has a biventricular AICD. 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 The most recent CT scan of the chest from 12/16/2024 showed asymmetric soft tissue fullness in the anterior hypopharynx at the level of the vocal cord with similar narrowing of the airway. Dysphagia and failed swallow postextubation. Patient is currently NPO. There is also evidence of oropharyngeal candidiasis Oropharyngeal candidiasis History of gastroesophageal reflux disease. Hypertension. Rheumatoid arthritis. Hypothyroidism. History of sleep apnea syndrome. History of anxiety/depression. Prior history of tobacco use Plan: Patient is extubated to 2 L of oxygen by nasal cannula Unable to swallow and the patient will be kept n.p.o. and an official swallow evaluation to be done. Continue IV Rocephin Continue bronchodilators Stop IV Lasix Initiate Diflucan 100 mg IV every 24 hours for oropharyngeal candidiasis The patient states that she has been on long-term steroid maintenance. For that reason, going to start the patient on IV Solu-Medrol 40 mg every 12 hours. Synthroid 88 mcg p.o. daily Paxil 20 mg p.o. daily Continue aspirin 81 mg p.o. daily and Coreg 6.25 mg p.o. twice a day Continue high-dose statins and the patient is currently on Lipitor 80 mg p.o. daily Will continue to follow. Critical care evaluation that was done at 35 minutes. Time with Patient: Greater than 30
[2025-01-02 23:26] LABS: Glucose,Whole Blood 130 mg/dL (70-110)
--- NOTE | 2025-01-03 02:50 | PN ---
PROGRESS NOTE DATE OF SERVICE: 01/01/2025 CHIEF COMPLAINT: Acute respiratory failure and right lower lobe aspiration pneumonia. HISTORY OF PRESENT ILLNESS: This lady is improving and is to be extubated. PHYSICAL EXAMINATION: GENERAL: She is quite pale. RESPIRATORY: Breath sounds are heard on both sides with scattered rhonchi. CARDIAC: Normal. IMPRESSION: 1. Acute respiratory failure. 2. Aspiration right lower lobe pneumonia. 3. Chronic obstructive pulmonary disease. 4. History of carcinoma of the larynx. PLAN: Hopefully, she can be extubated and activity increased. MMODL / IJN: [id number] /
--- NOTE | 2025-01-03 03:36 | PN ---
PROGRESS NOTE CHIEF COMPLAINT: Aspiration pneumonia. HISTORY OF PRESENT ILLNESS: This lady is still improving. She has been extubated. Interrogation of her pacemaker and ICD suggests that she has not administered a shock when she passed out before coming to the hospital. PHYSICAL EXAMINATION: GENERAL: She is pale and she is still lethargic. RESPIRATORY: Breath sounds are diminished, but she is breathing on her own. CARDIAC: Normal. ABDOMEN: Soft, nontender. IMPRESSION: 1. Acute respiratory failure. 2. Probable aspiration right lower lobe pneumonia. PLAN: Continue to progress activity and diet. Discharge planning is being considered. MMODL / IJN: [id number] /
[2025-01-03 05:42] LABS: Glucose,Whole Blood 143 mg/dL (70-110)
[2025-01-03 09:14] LABS: HCT 36.1 % (37.2-46.3); HGB 12.1 g/dL (12.0-15.0); MCH 32.5 pg (27.0-32.0); MCHC 33.5 g/dL (32.0-37.0); Platelet Count 105 10*3/uL (140-440); RBC 3.72 10*6/uL (4.10-5.20); RDW 17.2 % (11.5-14.5); WBC 11.20 10*3/uL (4.50-10.00)
[2025-01-03 09:17] LABS: MCV 97.0 fL (80.0-97.0)
[2025-01-03 09:23] LABS: African American GFR (CKD) >90 (>60 ml/min/1.73 sqM); Anion Gap 13 mmol/L; Blood Urea Nitrogen 28 mg/dL (7-17); Calcium 8.6 mg/dL (8.4-10.2); Carbon Dioxide 21 mmol/L (22-30); Chloride 99 mmol/L (98-107); Glucose 138 mg/dL (74-99); Non-African American GFR(CKD) >90 (>60 ml/min/1.73 sqM); Potassium 3.8 mmol/L (3.5-5.1); Sodium 133 mmol/L (137-145)
[2025-01-03 09:45] LABS: Anisocytosis (M) Present; Lymphocytes # (M) 0.11 k/uL (1.0-4.8); Metamyelocytes # (M) 0.22 k/uL (0); Monocytes # (M) 1.01 k/uL (0-1.0); Myelocytes # (M) 0.22 k/uL (0); Neutrophils # (M) 9.86 k/uL (1.3-7.7); Neutrophils % (M) 88 %; Poikilocytosis (M) Present; Total Cells Counted 200
[2025-01-03 12:02] LABS: Glucose,Whole Blood 165 mg/dL (70-110)
[2025-01-03 16:39] LABS: Glucose,Whole Blood 158 mg/dL (70-110)
[2025-01-03 19:48] LABS: Glucose,Whole Blood 157 mg/dL (70-110)
--- NOTE | 2025-01-03 20:38 | P.PN ---
Subjective Progress Note Date: 01/03/25 69-year-old female who looks much older than her stated age, who apparently comes into the emergency department, December 25, brought in by EMS, because apparently she was found down on the floor. She apparently was going to the bathroom, and fell, but did not hurt herself. She believes her defibrillator, went off, but she was not sure. She is not sure if she lost consciousness according to the [facility]. She apparently denied any chest pain, or difficulty breathing in the emergency department. Apparently, the patient was evaluated by cardiology, and, apparently there was an issue with the defibrillator. Anyway, the patient was all set to be discharged, but apparently last night, and then today, the patient developed some increasing shortness of breath, and, saturations are quite low, and the patient required more more oxygen, to the point where she was on Airvo. We were asked to see the patient because of her respiratory decline. Chest x-ray appears to show possible minimal infiltrate at the right lung base, she may have aspirated. She apparently has a history of throat cancer, undergoing both chemo and radiation therapy. The status of that is not known. In addition, according to the chart, she has a history of COPD, acid reflux disease, hypertension, rheumatoid arthritis, sleep apnea, hypothyroidism, among other things. She has had a heart catheterization, pacemaker, and AICD placement. We attempted to talk to the family about CODE STATUS. They were not sure of her CODE STATUS although in the chart, apparently she was not to be intubated. The was unsure. The daughter could not be reached. A blood gas was done, showing a PO2 of 39, PCO2 of 31, and a pH of 7 .55. The patient was transferred to the intensive care unit. The blood gas was done on 100% oxygen. White count was 13.2, hemoglobin 15.7, hematocrit 43.1, and platelet count 189,000. Sodium was 127, potassium 4.7, chlorides 90, CO2 23, anion gap 14, BUN 39, creatinine 0.91. Glucose was 143. N-terminal proBNP was 1580. TSH was quite high at 15.1. Home medications included levothyroxine, which the patient may or may not be taking. Chest x-ray from earlier, shows a possible minimal infiltrate, right lower lobe. Apparently the patient has been evaluated by speech pathology. Progress note dated December 30, 2024. 69-year-old female who looks much older than her stated age. We saw her ye sterday in consultation. Patient developed respiratory failure, presumably secondary to aspiration. Patient is currently on the ventilator. She is on volume assist-control, rate 14, tidal volume 450, FiO2 80%, PEEP of 10. Blood gases on 100% show pO2 of 119, pCO2 of 45, pH of 7.35. Art line and central line were placed yesterday. She is on propofol at 40 mcg/kg/min, norepinephrine at 2.8 mcg/min, and saline at 10 cc an hour. She is getting vital high-protein at 10 cc an hour. She continues on azithromycin and Rocephin for aspiration pneumonia. White count of 15.3, hemoglobin 13.9, hematocrit 39.4, platelet count 161,000. Sodium 129, potassium 3.7, chloride 94, CO2 25, BUN 38, creat inine 0.98. Glucose is 186. Calcium 8.2. Chest x-ray shows a small right- sided pleural effusion, and some minimal infiltrate, at the right lung base. Progress note dated December 31, 2024. 69-year-old female seen today in room 262. She remains on volume assist- control, rate 14, tidal volume 450, FiO2 60%, PEEP of 10. Gases on 80% show pO2 of 137, PCO2 of 40, pH of 7.49. She is getting propofol at 40 mcg/kg/min, saline at 15 cc an hour, and vital high-protein at 10 cc, with a goal of 38. The patient is currently on azithromycin and Rocephin. Vancomycin is discontinued. Sputum was positive for Streptococcus pneumoniae. White count 13.6, hemoglobin 12.8, hematocrit 35.7, platelet count 137,000. Sodium 128, potassium 4, chloride 90, CO2 29, BUN 32, creatinine 0.76. Glucose 147. Calc ium 8.1. Chest x-ray continues to show bibasilar infiltrates or atelectasis. On 01/01/2025, the patient is being seen for a follow-up. This morning, the patient has been weaned off the sedation and the patient is arousable and the patient is making good eye contact and following simple commands and answering questions. The patient is on assist-control mode of mechanical ventilation at rate of 14, tidal volume of 450, FiO2 of 50% and a PEEP of 10. The blood gas showed a pH of 7.55 with a SOU295 and PO284. The chest x-ray from today shows COPD with some mild patchy atelectatic changes in the left lung base. Hemodynamically stable. White cell count of 13.9, hemothirteen 0.2 and a platelet count of 143. Sodium is at 130 with a potassium level of 3.8, bicarbonate 32, BUN 28 with a creatinine of 0.6. The patient had a sputum sample that was positive for Streptococcus pneumonia and the patient remains on IV Rocephin. The patient remains on bronchodilators and the patient is currentl y on DuoNeb nebulized treatments [id number]. A bedside cuff leak test was done and the patient has adequate air movement around the ET tube and the patient is currently intubated with a #7 orotracheal tube and this intubation was done due to concerns of her previous history of throat cancer. Tube feeds are currently on hold, possible extubation today based on her progress. On 01/02/2025, the patient is being seen for a follow-up. The patient has been weaned off the mechanical ventilator and the patient was extubated and the patient is currently on 2 L of oxygen by nasal cannula. The patient is having some difficulty in swallowing. The cough is weak. No significant respiratory distress. She failed a bedside swallow and the patient will have an official swallow evaluation. Meanwhile, the patient has been kept NPO. She remains on the lactated Ringer at rate of 75 cc an hour. She was also noted to have oropharyngeal candidiasis. She is awake and alert and communicating. The chest x-ray from this morning shows COPD with slightly worsening patchy retrocardiac atelectasis. The patient's WBC count is 11.2 with a hemoglobin of 11.7 and a platelet count of 102. BUN is 23 with a creatinine 0.6. Sodium level is 134 and a potassium level is at 3.5. The patient remains on IV Rocephin 2 g every 24 hours as the patient sputum sample was positive for strep pneumo. The pat ient remains on DuoNeb treatments [id number]. The patient is on Coreg 6.25 mg p.o. twice a day, Synthroid 88 mcg p.o. daily, and Lipitor 80 mg p.o. daily. She is also on aspirin. There is generalized profound weakness in all 4 extremities. Nevertheless, the patient is able to move all 4 extremities and she is following simple commands. Coffee mechanism remains weak. 01/03/2025, the patient is being seen for a follow-up. The patient was transferred out of the intensive care unit postextubation the patient is currently on 2 L of oxygen by nasal cannula. She continues to have some limited congested cough. No significant sputum production. No signs of any significant respiratory distress. She remains profoundly weak and debilitated. She is also having difficulty in swallowing and speech pathology has been involved in the care of the patient is going to undergo a modified barium swallow. The patient also had oropharyngeal candidiasis and the patient is currently taking IV Diflucan. She remains on IV Rocephin regarding a pneumococcal pneumonia with secondary COPD exacerbation. Most recent chest x-ray from 01/02/2025 shows COPD and patchy left lower lobe pulmonary infiltrates/atelectasis/consolidation. The white second 11.2 with a hemoglobin 12.1 and platelet count of 105. Sodium level is at 133, BUN 28 with a creatinine of 0.4. Bicarb is at 21. Glucose is 157. Objective - Vital Signs Vital signs: Vital Signs Temp 97.9 F 01/03/25 12:00 Pulse 102 H 01/03/25 13:08 Resp 16 01/03/25 13:08 BP 131/71 01/03/25 12:00 Pulse Ox 95 01/03/25 12:00 FiO2 50 01/01/25 12:00 Intake & Output 01/02/25 01/03/25 01/03/25 18:59 06:59 18:59 Intake Total 929.785 510 Output Total 260 500 Balance 669.785 10 Weight 71 kg 69.9 kg Intake: IV 919 510 0.9 230 60 Lactated Ringers 1,000 ml 600 450 @ 75 mls/hr IV .[id number] [facility] Rx#:[id number] Pressure bag 39 cefTRIAXone 2 gm In 50 Sodium Chloride 0.9% 50 ml @ 100 mls/hr IVPB Q24HR [facility] Rx#:[id number] Intake, IV Titration 10.785 Amount Dexmedetomidine/0.9% NaCl 10.785 (Pmx) 400 mcg In Empty Bag 1 bag @ 0.2 MCG/KG/HR 3.535 mls/hr IV .Q24H [facility] Rx#:[id number] Output: Urine 260 500 Other: Voiding Method Indwelling Catheter Indwelling Catheter Indwelling Catheter ABP, PAP, CO, CI - Last Documented Arterial Blood Pressure 133/68 - Exam No acute distress, patient is extubated and the patient is currently on 2 L of oxygen by nasal cannula. No significant respiratory distress. HEENT examination is grossly unremarkable. No stridor noted on physical exa mination. Neck supple. Full range of motion. No adenopathy thyromegaly or neck vein distention. Cardiovascular examination reveals regular rhythm rate. S1-S2 normal. No S3 or S4. No discernible murmur noted. Heart sounds are distant. Lungs reveal scattered bilateral rhonchi. No wheezes or crackles. Breath sounds equal. Saturations are adequate. Abdomen soft bowel sounds are heard. No masses or tenderness. Extremities are intact. No cyanosis clubbing or edema. Skin is without rash or lesion. Neurologic examination is adequate and the patient is moving all 4 extremities and generalized global weakness in all 4 extremities. Neurologic exam is nonfocal. The patient is following commands and she seems to be appropriate at this point in time. - Labs CBC & Chem 7: 01/03/25 08:24 01/03/25 08:24 Labs: Abnormal Lab Results - Last 24 Hours (Table) 01/02/25 01/02/25 01/03/25 Range/Units 17:49 23:25 05:41 WBC (4.50-10.00) 10*3/uL RBC (4.10-5.20) 10*6/uL Hct (37.2-46.3) % MCH (27.0-32.0) pg Plt Count (140-440) 10*3/uL Immature Gran # (0.00-0.04) 10*3/uL Neutrophils # (Manual) (1.3-7.7) k/uL Lymphocytes # (Manual) (1.0-4.8) k/uL Monocytes # (Manual) (0-1.0) k/uL Metamyelocytes # (Man) (0) k/uL Myelocytes # (Manual) (0) k/uL Sodium (137-145) mmol/L Carbon Dioxide (22-30) mmol/L BUN (7-17) mg/dL Creatinine (0.52-1.04) mg/dL Glucose (74-99) mg/dL POC Glucose (mg/dL) 154 H 130 H 143 H (70-110) mg/dL 01/03/25 01/03/25 01/03/25 Range/Units 08:24 08:24 11:49 WBC 11.20 H (4.50-10.00) 10*3/uL RBC 3.72 L (4.10-5.20) 10*6/uL Hct 36.1 L (37.2-46.3) % MCH 32.5 H (27.0-32.0) pg Plt Count 105 L (140-440) 10*3/uL Immature Gran # 0.63 H (0.00-0.04) 10*3/uL Neutrophils # (Manual) 9.86 H (1.3-7.7) k/uL Lymphocytes # (Manual) 0.11 L (1.0-4.8) k/uL Monocytes # (Manual) 1.01 H (0-1.0) k/uL Metamyelocytes # (Man) 0.22 H (0) k/uL Myelocytes # (Manual) 0.22 H (0) k/uL Sodium 133 L (137-145) mmol/L Carbon Dioxide 21 L (22-30) mmol/L BUN 28 H (7-17) mg/dL Creatinine 0.43 L (0.52-1.04) mg/dL Glucose 138 H (74-99) mg/dL POC Glucose (mg/dL) 165 H (70-110) mg/dL Assessment and Plan Plan: Acute hypoxemic respiratory failure, requiring intubation, and mechanical ventilation, and the patient was intubated on 12/29/2024. The patient has a pneumococcal pneumonia involving the left lower lobe. Patient remains on IV R ocephin. Patient was extubated on 01/01/2025 and the patient is currently on 2 L of oxygen by nasal cannula. Chest x-ray continues to show a left lower lobe consolidation. Left lower lobe pneumococcal pneumonia, currently on IV Rocephin Severe cardiomyopathy with systolic heart failure and impaired LV function and ejection fraction of 35 to 40% and moderate severe global hypokinesis of the left ventricle, S/P AICD placement and the patient has a biventricular AICD. 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 The most recent CT scan of the chest from 12/16/2024 showed asymmetric soft tissue fullness in the anterior hypopharynx at the level of the vocal cord with similar narrowing of the airway. Dysphagia and failed swallow postextubation. Patient is currently NPO. There is also evidence of oropharyngeal candidiasis Oropharyngeal candidiasis Dysphagia and difficulty swallowing and speech pathology has been involved History of gastroesophageal reflux disease. Hypertension. Rheumatoid arthritis. Hypothyroidism. History of sleep apnea syndrome. History of anxiety/depression. Prior history of tobacco use Plan: Patient is extubated to 2 L of oxygen by nasal cannula Modified barium swallow and speech pathology evaluation, meanwhile keep the patient on LR at rate of 75 cc an hour Continue IV Rocephin Continue bronchodilators Involve physical therapy Continue Diflucan 100 mg IV every 24 hours for oropharyngeal candidiasis The patient states that she has been on long-term steroid maintenance. Continue IV Solu-Medrol 40 mg every 12 hours. Synthroid 88 mcg p.o. daily Paxil 20 mg p.o. daily Continue aspirin 81 mg p.o. daily and Coreg 6.25 mg p.o. twice a day Continue high-dose statins and the patient is currently on Lipitor 80 mg p.o. daily Will continue to follow.
[2025-01-03] MEDS: INSULIN LISPRO (HumaLOG) 100 UNIT/ML 10 mL VL SQ SCH (22:07)
--- NOTE | 2025-01-03 22:50 | PN ---
PROGRESS NOTE CHIEF COMPLAINT: Respiratory failure and aspiration pneumonia. HISTORY OF PRESENT ILLNESS: This lady is slowly improving, but she remains quite weak. PHYSICAL EXAMINATION: GENERAL: She is awake and alert. CHEST: Demonstrates scattered rhonchi and occasional scattered rales. CARDIAC: Normal. IMPRESSION: 1. Status post acute respiratory failure. 2. Aspiration, right lower lobe pneumonia. 3. Anemia. 4. Hypothyroidism. 5. General debility and weakness. 6. Carcinoma of the throat. PLAN: Increase activity and diet and start to look at post hospitalization rehab. MMODL / IJN: [id number] /
[2025-01-04 06:14] LABS: Glucose,Whole Blood 180 mg/dL (70-110)
[2025-01-04] MEDS: IPRATROPIUM-ALBUTEROL 3 ML NEB INHALATION SCH (09:10)
[2025-01-04 11:28] LABS: Glucose,Whole Blood 152 mg/dL (70-110)
[2025-01-04] MEDS: IPRATROPIUM-ALBUTEROL 3 ML NEB INHALATION PRN (11:28)
[2025-01-04 12:16] LABS: Allen Test Performed? Yes
[2025-01-04 12:17] LABS: ABG HCO3 25 mmol/L (21-25); ABG PCO2 29 mmHg (35-45); ABG PH 7.55 (7.35-7.45); ABG TCO2 26 mmol/L (19-24)
[2025-01-04 12:20] LABS: ABG PO2 33 mmHg (83-108)
--- NOTE | 2025-01-04 13:08 | XR ---
EXAMINATION TYPE: XR chest 1V DATE OF EXAM: 01/04/2025 COMPARISON: 01/02/2025 CLINICAL INDICATION: Female, 69 years old with history of SOB, increased 02 demands; TECHNIQUE: Single frontal view of the chest is obtained. FINDINGS: Heart normal size. Mild hyperinflation. Left anterior chest wall AICD generator with right atrial, ri ght ventricular, and coronary sinus leads. Mild patchy bibasilar densities remain. Overall appearance to the interstitium is improved from prior. External artifacts projecting at the left apex. IMPRESSION: COPD. Interstitium shows improvement from prior. Some strandy bibasilar atelectasis is p resent. [facility], , 01/04/2025 1:06 PM
--- NOTE | 2025-01-04 13:48 | CT ---
EXAMINATION TYPE: CT angio chest CT DLP: 327.7 mGycm, Automated exposure control for dose reduction was used. DATE OF EXAM: 01/04/2025 1:31 PM COMPARISON: Multiple chest radiographs with most recent 01/04/2025. CTA chest 12/16/2024, 10/08/2024, PET /CT 10/19/2024. CLINICAL INDICATION:Female, 69 years old with history of New onset SOB w/increase o2 demand; New onse t SOB TECHNIQUE/CONTRAST: CTA scan of the thorax is performed with IV Contrast, patient injected with 100 ml mL of Isovue 370, pulmonary embolism protocol. MIP images are created and reviewed. FINDINGS: Pulmonary Artery: There is no evidence for a filling defect within the pulmonary vasculature to sugge st acute pulmonary embolism. The pulmonary artery is of normal size. Lungs/Pleura: No pneumothorax. Trace right pleural effusion. Development of bilateral lower lobe cons olidative opacities and atelectasis. Peripheral right upper lobe patchy groundglass opacity is new. A dditional patchy groundglass opacity within the lingula is noted. No definitive new or enlarging pulm onary nodule. Mild centrilobular emphysematous changes. Airway: Large airways are patent. The distal bilateral lower lobe bronchi become occluded. Heart: Cardiomegaly is demonstrated.Trace anterior pericardial effusion. No significant coronary nate ry calcifications. Anterior chest wall 3-lead cardiac pacemaking device with leads terminating in th e right atrium, right ventricle and coronary sinus. Vasculature: No evidence of aortic aneurysm. Mild atherosclerotic calcification of the aorta and its branches. Mediastinum: No gross evidence of adenopathy. Musculoskeletal: No acute osseous abnormalities. Remote healed bilateral rib fractures. No aggressive osseous lesion. Moderate multilevel degenerative disc disease of the lower thoracic spine. Soft Tissues: Unremarkable. Lower neck: Atrophic thyroid gland. Upper Abdomen: Trace perihepatic and perisplenic ascites. Stable right renal superior pole 2.8 cm sim ple cyst. No follow-up recommended. IMPRESSION: 1. No evidence of pulmonary embolism. 2. Bilateral lower lobe consolidative opacities and atelectasis. Additional few peripheral right uppe r lobe and lingular groundglass opacities. Findings suggest pneumonia with possible mucous plugging. 3. Trace right pleural effusion. [facility], , 01/04/2025 1:46 PM
--- NOTE | 2025-01-04 16:30 | P.PN ---
Subjective Progress Note Date: 01/03/25 Principal diagnosis: Reason for follow-up is pneumonia Patient is a 69-year-old female with a past medical history significant for hypertension rheumatoid arthritis reflux COPD did have history of AICD anxiety depression, history of throat cancer on chemoradiation initially presented to hospital after repeated have a fall subsequent did have a worsening respiratory status requiring intubation admission in the ICU there was concern for pneumonia sputum with strep pneumo prompted this consultation On today's evaluation that is 01/03/2025,the patient continues to be afebrile patient is breathing comfortably on 2 L nasal cannula oxygen patient slightly sleepy lethargic not very good historian no vomiting or diarrhea has been . Patient white count is 11.20 creatinine 0.43 blood culture negative Objective - Vital Signs Vital signs: Vital Signs Temp 97.9 F 01/03/25 12:00 Pulse 102 H 01/03/25 13:08 Resp 16 01/03/25 13:08 BP 131/71 01/03/25 12:00 Pulse Ox 95 01/03/25 12:00 FiO2 50 01/01/25 12:00 Intake & Output 01/02/25 01/03/25 01/03/25 18:59 06:59 18:59 Intake Total 929.785 510 Output Total 260 500 Balance 669.785 10 Weight 71 kg 69.9 kg Intake: IV 919 510 0.9 230 60 Lactated Ringers 1,000 ml 600 450 @ 75 mls/hr IV .[id number] [facility] Rx#:[id number] Pressure bag 39 cefTRIAXone 2 gm In 50 Sodium Chloride 0.9% 50 ml @ 100 mls/hr IVPB Q24HR [facility] Rx#:[id number] Intake, IV Titration 10.785 Amount Dexmedetomidine/0.9% NaCl 10.785 (Pmx) 400 mcg In Empty Bag 1 bag @ 0.2 MCG/KG/HR 3.535 mls/hr IV .Q24H [facility] Rx#:[id number] Output: Urine 260 500 Other: Voiding Method Indwelling Catheter Indwelling Catheter Indwelling Catheter ABP, PAP, CO, CI - Last Documented Arterial Blood Pressure 133/68 - Exam GENERAL DESCRIPTION: An elderly female lying in bed in no distress RESPIRATORY SYSTEM: Unlabored breathing , decreased breath sounds at bases HEART: S1 S2 regular rate and rhythm , ABDOMEN: Soft , no tenderness EXTREMITIES: No edema feet - Labs CBC & Chem 7: 01/03/25 08:24 01/03/25 08:24 Labs: Abnormal Lab Results - Last 24 Hours (Table) 01/02/25 01/02/25 01/03/25 Range/Units 17:49 23:25 05:41 WBC (4.50-10.00) 10*3/uL RBC (4.10-5.20) 10*6/uL Hct (37.2-46.3) % MCH (27.0-32.0) pg Plt Count (140-440) 10*3/uL Immature Gran # (0.00-0.04) 10*3/uL Neutrophils # (Manual) (1.3-7.7) k/uL Lymphocytes # (Manual) (1.0-4.8) k/uL Monocytes # (Manual) (0-1.0) k/uL Metamyelocytes # (Man) (0) k/uL Myelocytes # (Manual) (0) k/uL Sodium (137-145) mmol/L Carbon Dioxide (22-30) mmol/L BUN (7-17) mg/dL Creatinine (0.52-1.04) mg/dL Glucose (74-99) mg/dL POC Glucose (mg/dL) 154 H 130 H 143 H (70-110) mg/dL 01/03/25 01/03/25 01/03/25 Range/Units 08:24 08:24 11:49 WBC 11.20 H (4.50-10.00) 10*3/uL RBC 3.72 L (4.10-5.20) 10*6/uL Hct 36.1 L (37.2-46.3) % MCH 32.5 H (27.0-32.0) pg Plt Count 105 L (140-440) 10*3/uL Immature Gran # 0.63 H (0.00-0.04) 10*3/uL Neutrophils # (Manual) 9.86 H (1.3-7.7) k/uL Lymphocytes # (Manual) 0.11 L (1.0-4.8) k/uL Monocytes # (Manual) 1.01 H (0-1.0) k/uL Metamyelocytes # (Man) 0.22 H (0) k/uL Myelocytes # (Manual) 0.22 H (0) k/uL Sodium 133 L (137-145) mmol/L Carbon Dioxide 21 L (22-30) mmol/L BUN 28 H (7-17) mg/dL Creatinine 0.43 L (0.52-1.04) mg/dL Glucose 138 H (74-99) mg/dL POC Glucose (mg/dL) 165 H (70-110) mg/dL Assessment and Plan (1) Sepsis Current Visit: Yes Status: Acute Code(s): A41.9 - SEPSIS, UNSPECIFIED ORGANISM SNOMED Code(s): 26215771 (2) Streptococcus pneumoniae infection Current Visit: Yes Status: Acute Code(s): A49.1 - STREPTOCOCCAL INFECTION, UNSPECIFIED SITE SNOMED Code(s): 06059477 (3) Pneumonia Current Visit: No Status: Acute Code(s): J18.9 - PNEUMONIA, UNSPECIFIED ORGANISM SNOMED Code(s): 794604174 Plan: 1patient presenting to the hospital with shortness of breath and there was concern for AICD fire subsequently worsening of respiratory status required intubation intubation in the ICU patient do have hypotension requiring pressor support elevated white count meeting currently for SIRS/sepsis source is likely pneumonia with a question of community-acquired versus aspiration pneumonia as the patient did have a history of throat cancer on chemoradiation and there was concern for aspiration the time of intubation sputum is currently showing Streptococcus pneumoniae that has been sensitive to ceftriaxone and Augmentin 2-patient is afebrile white count is down to 11,000, 3the patient is currently being treated with Rocephin and monitor clinical course closely Dictation was produced using [employer] dictation software. please excuse any grammatical, word or spelling errors. Time with Patient: Less than 30
--- NOTE | 2025-01-04 16:31 | P.PN ---
Subjective Progress Note Date: 01/04/25 Principal diagnosis: Reason for follow-up is pneumonia Patient is a 69-year-old female with a past medical history significant for hypertension rheumatoid arthritis reflux COPD did have history of AICD anxiety depression, history of throat cancer on chemoradiation initially presented to hospital after repeated have a fall subsequent did have a worsening respiratory status requiring intubation admission in the ICU there was concern for pneumonia sputum with strep pneumo prompted this consultation On today's evaluation that is 01/04/2025,the patient remains to be afebrile, patient is lethargic and is currently quiring 13 L nasal cannula high flow oxygen no clear history of any nausea vomiting or other change reported by nursing staff patient unable to provide reliable history. No new lab has been obtained today patient did have a chest x-ray followed by CTA no PE bilateral lower lobe consolidative changes and mucous plugging Objective - Vital Signs Vital signs: Vital Signs Temp 98.4 F 01/04/25 11:21 Pulse 118 H 01/04/25 11:43 Resp 20 01/04/25 11:21 BP 110/76 01/04/25 11:21 Pulse Ox 91 L 01/04/25 11:32 FiO2 50 01/01/25 12:00 Intake & Output 01/03/25 01/04/25 01/04/25 18:59 06:59 18:59 Output Total 350 Balance -350 Weight 71.5 kg Output: Urine 350 Other: Voiding Method Indwelling Catheter Indwelling Catheter Indwelling Catheter # Bowel Movements 1 ABP, PAP, CO, CI - Last Documented Arterial Blood Pressure 133/68 - Exam GENERAL DESCRIPTION: An elderly female lying in bed in no distress RESPIRATORY SYSTEM: Unlabored breathing , decreased breath sounds at bases HEART: S1 S2 regular rate and rhythm , ABDOMEN: Soft , no tenderness EXTREMITIES: No edema feet - Labs CBC & Chem 7: 01/03/25 08:24 01/03/25 08:24 Labs: Abnormal Lab Results - Last 24 Hours (Table) 01/03/25 01/03/25 01/04/25 Range/Units 16:32 19:46 06:12 ABG pH (7.35-7.45) ABG pCO2 (35-45) mmHg ABG pO2 (83-108) mmHg ABG Total CO2 (19-24) mmol/L ABG O2 Saturation (94-97) % POC Glucose (mg/dL) 158 H 157 H 180 H (70-110) mg/dL 01/04/25 01/04/25 Range/Units 11:26 12:12 ABG pH 7.55 H (7.35-7.45) ABG pCO2 29 L (35-45) mmHg ABG pO2 33 L* (83-108) mmHg ABG Total CO2 26 H (19-24) mmol/L ABG O2 Saturation 71.6 L (94-97) % POC Glucose (mg/dL) 152 H (70-110) mg/dL Microbiology - Last 24 Hours (Table) 12/29/24 09:47 Blood Culture - Final Blood Assessment and Plan (1) Sepsis Current Visit: Yes Status: Acute Code(s): A41.9 - SEPSIS, UNSPECIFIED ORGANISM SNOMED Code(s): 70211947 (2) Streptococcus pneumoniae infection Current Visit: Yes Status: Acute Code(s): A49.1 - STREPTOCOCCAL INFECTION, UNSPECIFIED SITE SNOMED Code(s): 29692376 (3) Pneumonia Current Visit: No Status: Acute Code(s): J18.9 - PNEUMONIA, UNSPECIFIED ORGANISM SNOMED Code(s): 129632989 Plan: 1patient presenting to the hospital with shortness of breath and there was concern for AICD fire subsequently worsening of respiratory status required intubation intubation in the ICU patient do have hypotension requiring pressor support elevated white count meeting currently for SIRS/sepsis source is likely pneumonia with a question of community-acquired versus aspiration pneumonia as the patient did have a history of throat cancer on chemoradiation and there was concern for aspiration the time of intubation sputum is currently showing Str eptococcus pneumoniae that has been sensitive to ceftriaxone and Augmentin 2-patient is afebrile white count is down to 11,000 as of yesterday no CBC was done today, 3the patient noticed to have worsening of her respiratory status requiring more supplemental oxygen she did have CT angiogram of the chest that was negative for PE she was consulted for changes and mucous plugging we will switch Rocephin to Unasyn and monitor clinical course closely Dictation was produced using [email or web address] dictation software. please excuse any grammatical, word or spelling errors. Time with Patient: Less than 30
[2025-01-04 16:46] LABS: Glucose,Whole Blood 152 mg/dL (70-110)
[2025-01-04] MEDS: AMPICILLIN-SULBACTAM 3 GM in SODIUM CHLORIDE 0.9% 100 ML IVPB SCH (17:22)
--- NOTE | 2025-01-04 18:16 | P.PN ---
Subjective Progress Note Date: 01/04/25 69-year-old female who looks much older than her stated age, who apparently comes into the emergency department, December 25, brought in by EMS, because apparently she was found down on the floor. She apparently was going to the bathroom, and fell, but did not hurt herself. She believes her defibrillator, went off, but she was not sure. She is not sure if she lost consciousness according to the [facility]. She apparently denied any chest pain, or difficulty breathing in the emergency department. Apparently, the patient was evaluated by cardiology, and, apparently there was an issue with the defibrillator. Anyway, the patient was all set to be discharged, but apparently last night, and then today, the patient developed some increasing shortness of breath, and, saturations are quite low, and the patient required more more oxygen, to the point where she was on Airvo. We were asked to see the patient because of her respiratory decline. Chest x-ray appears to show possible minimal infiltrate at the right lung base, she may have aspirated. She apparently has a history of throat cancer, undergoing both chemo and radiation therapy. The status of that is not known. In addition, according to the chart, she has a history of COPD, acid reflux disease, hypertension, rheumatoid arthritis, sleep apnea, hypothyroidism, among other things. She has had a heart catheterization, pacemaker, and AICD placement. We attempted to talk to the family about CODE STATUS. They were not sure of her CODE STATUS although in the chart, apparently she was not to be intubated. The was unsure. The daughter could not be reached. A blood gas was done, showing a PO2 of 39, PCO2 of 31, and a pH of 7 .55. The patient was transferred to the intensive care unit. The blood gas was done on 100% oxygen. White count was 13.2, hemoglobin 15.7, hematocrit 43.1, and platelet count 189,000. Sodium was 127, potassium 4.7, chlorides 90, CO2 23, anion gap 14, BUN 39, creatinine 0.91. Glucose was 143. N-terminal proBNP was 1580. TSH was quite high at 15.1. Home medications included levothyroxine, which the patient may or may not be taking. Chest x-ray from earlier, shows a possible minimal infiltrate, right lower lobe. Apparently the patient has been evaluated by speech pathology. Progress note dated December 30, 2024. 69-year-old female who looks much older than her stated age. We saw her ye sterday in consultation. Patient developed respiratory failure, presumably secondary to aspiration. Patient is currently on the ventilator. She is on volume assist-control, rate 14, tidal volume 450, FiO2 80%, PEEP of 10. Blood gases on 100% show pO2 of 119, pCO2 of 45, pH of 7.35. Art line and central line were placed yesterday. She is on propofol at 40 mcg/kg/min, norepinephrine at 2.8 mcg/min, and saline at 10 cc an hour. She is getting vital high-protein at 10 cc an hour. She continues on azithromycin and Rocephin for aspiration pneumonia. White count of 15.3, hemoglobin 13.9, hematocrit 39.4, platelet count 161,000. Sodium 129, potassium 3.7, chloride 94, CO2 25, BUN 38, creat inine 0.98. Glucose is 186. Calcium 8.2. Chest x-ray shows a small right- sided pleural effusion, and some minimal infiltrate, at the right lung base. Progress note dated December 31, 2024. 69-year-old female seen today in room 262. She remains on volume assist- control, rate 14, tidal volume 450, FiO2 60%, PEEP of 10. Gases on 80% show pO2 of 137, PCO2 of 40, pH of 7.49. She is getting propofol at 40 mcg/kg/min, saline at 15 cc an hour, and vital high-protein at 10 cc, with a goal of 38. The patient is currently on azithromycin and Rocephin. Vancomycin is discontinued. Sputum was positive for Streptococcus pneumoniae. White count 13.6, hemoglobin 12.8, hematocrit 35.7, platelet count 137,000. Sodium 128, potassium 4, chloride 90, CO2 29, BUN 32, creatinine 0.76. Glucose 147. Calc ium 8.1. Chest x-ray continues to show bibasilar infiltrates or atelectasis. On 01/01/2025, the patient is being seen for a follow-up. This morning, the patient has been weaned off the sedation and the patient is arousable and the patient is making good eye contact and following simple commands and answering questions. The patient is on assist-control mode of mechanical ventilation at rate of 14, tidal volume of 450, FiO2 of 50% and a PEEP of 10. The blood gas showed a pH of 7.55 with a [id number] and PO284. The chest x-ray from today shows COPD with some mild patchy atelectatic changes in the left lung base. Hemodynamically stable. White cell count of 13.9, hemothirteen 0.2 and a platelet count of 143. Sodium is at 130 with a potassium level of 3.8, bicarbonate 32, BUN 28 with a creatinine of 0.6. The patient had a sputum sample that was positive for Streptococcus pneumonia and the patient remains on IV Rocephin. The patient remains on bronchodilators and the patient is currentl y on DuoNeb nebulized treatments [id number]. A bedside cuff leak test was done and the patient has adequate air movement around the ET tube and the patient is currently intubated with a #7 orotracheal tube and this intubation was done due to concerns of her previous history of throat cancer. Tube feeds are currently on hold, possible extubation today based on her progress. On 01/02/2025, the patient is being seen for a follow-up. The patient has been weaned off the mechanical ventilator and the patient was extubated and the patient is currently on 2 L of oxygen by nasal cannula. The patient is having some difficulty in swallowing. The cough is weak. No significant respiratory distress. She failed a bedside swallow and the patient will have an official swallow evaluation. Meanwhile, the patient has been kept NPO. She remains on the lactated Ringer at rate of 75 cc an hour. She was also noted to have oropharyngeal candidiasis. She is awake and alert and communicating. The chest x-ray from this morning shows COPD with slightly worsening patchy retrocardiac atelectasis. The patient's WBC count is 11.2 with a hemoglobin of 11.7 and a platelet count of 102. BUN is 23 with a creatinine 0.6. Sodium level is 134 and a potassium level is at 3.5. The patient remains on IV Rocephin 2 g every 24 hours as the patient sputum sample was positive for strep pneumo. The pat ient remains on DuoNeb treatments [id number]. The patient is on Coreg 6.25 mg p.o. twice a day, Synthroid 88 mcg p.o. daily, and Lipitor 80 mg p.o. daily. She is also on aspirin. There is generalized profound weakness in all 4 extremities. Nevertheless, the patient is able to move all 4 extremities and she is following simple commands. Coffee mechanism remains weak. 01/03/2025, the patient is being seen for a follow-up. The patient was transferred out of the intensive care unit postextubation the patient is currently on 2 L of oxygen by nasal cannula. She continues to have some limited congested cough. No significant sputum production. No signs of any significant respiratory distress. She remains profoundly weak and debilitated. She is also having difficulty in swallowing and speech pathology has been involved in the care of the patient is going to undergo a modified barium swallow. The patient also had oropharyngeal candidiasis and the patient is currently taking IV Diflucan. She remains on IV Rocephin regarding a pneumococcal pneumonia with secondary COPD exacerbation. Most recent chest x-ray from 01/02/2025 shows COPD and patchy left lower lobe pulmonary infiltrates/atelectasis/consolidation. The white second 11.2 with a hemoglobin 12.1 and platelet count of 105. Sodium level is at 133, BUN 28 with a creatinine of 0.4. Bicarb is at 21. Glucose is 157. On 01/04/2025, the patient had a coughing COPD. Noted this patient is post ventilator dependent respiratory failure and a pneumococcal pneumonia. The patient remains on IV Rocephin. Episode and following that the patient started having hypoxemia. The patient was brought up from 2 L up to 15 L of nasal cannula. Based on that, further workup was initiated. The patient was given a blood gas that showed acute respiratory alkalosis with a pH of 7.55 and a PCO2 of 29 and PO2 of 33. Subsequently, the patient was placed on 13 L and her current pulse ox is 93%. CT of the chest was also done and the patient had no evidence of any pulmonary embolism. The patient had no filling defects. There was bilateral lower lobe opacities/atelectasis. There is additional few peripheral right upper lobe and lingular groundglass opacities that are minimal and there is also mucous plugging and a trace right-sided pleural effusion. There is also background COPD. Noted the patient is post ventilator dependent respiratory failure and the patient was extubated on 01/02/2025. The patient continued to have dysphagia following her extubation patient is currently NPO. No reported aspiration per nursing staff. Her antibiotic coverage has been switched to IV Unasyn and Rocephin has been discontinued. Remains on bronchodilators. Remains on IV Solu-Medrol. The white cell count from yesterday was 11.2. No labs are available from today. Obviously, her labs need to be repeated. Family is at the bedside. She is arousable and awake although she is quite weak and she seems to be quite debilitated. Objective - Vital Signs Vital signs: Vital Signs Temp 98.4 F 01/04/25 11:21 Pulse 118 H 01/04/25 11:43 Resp 20 01/04/25 11:21 BP 110/76 01/04/25 11:21 Pulse Ox 91 L 01/04/25 11:32 FiO2 50 01/01/25 12:00 Intake & Output 01/03/25 01/04/25 01/04/25 18:59 06:59 18:59 Output Total 350 Balance -350 Weight 71.5 kg Output: Urine 350 Other: Voiding Method Indwelling Catheter Indwelling Catheter Indwelling Catheter # Bowel Movements 1 ABP, PAP, CO, CI - Last Documented Arterial Blood Pressure 133/68 - Exam currently on 13 L of oxygen by nasal cannula, also having mild degree of respiratory distress, lethargic yet arousable and communicating and moving all 4 extremities. HEENT examination is grossly unremarkable. No stridor noted on physical examination. Neck supple. Full range of motion. No adenopathy thyromegaly or neck vein distention. Cardiovascular examination reveals regular rhythm rate. S1-S2 normal. No S3 or S4. No discernible murmur noted. Heart sounds are distant. Lungs reveal scattered bilateral rhonchi. No wheezes or crackles. Breath sounds equal. No breath sounds are equal and symmetrical and there is no s ignificant wheezing at this point. Abdomen soft bowel sounds are heard. No masses or tenderness. Extremities are intact. No cyanosis clubbing or edema. Skin is without rash or lesion. Neurologic examination is adequate and the patient is moving all 4 extremities and generalized global weakness in all 4 extremities. Neurologic exam is nonfocal. The patient is following commands and she seems to be appropriate at this point in time. - Labs CBC & Chem 7: 01/03/25 08:24 01/03/25 08:24 Labs: Abnormal Lab Results - Last 24 Hours (Table) 01/03/25 01/03/25 01/03/25 Range/Units 11:49 16:32 19:46 POC Glucose (mg/dL) 165 H 158 H 157 H (70-110) mg/dL 01/04/25 01/04/25 Range/Units 06:12 11:26 POC Glucose (mg/dL) 180 H 152 H (70-110) mg/dL Microbiology - Last 24 Hours (Table) 12/29/24 09:47 Blood Culture - Final Blood Assessment and Plan Plan: Acute hypoxemic respiratory failure, requiring intubation, and mechanical ventilation, and the patient was intubated on 12/29/2024. The patient has a pneumococcal pneumonia involving the left lower lobe. Patient remains on IV Rocephin. Patient was extubated on 01/01/2025 and the patient is currently on 2 L of oxygen by nasal cannula. Subsequently, this afternoon on 01/04/2025, the patient developed an acute hypoxic respiratory failure and the patient was placed on 30 L of oxygen by nasal cannula. CT of the chest shows lower lobe consolidations. No evidence of any pulmonary embolism. Questionable aspiration as the patient continues to have dysphagia. The patient has been switched to IV Unasyn. Left lower lobe pneumococcal pneumonia, currently on IV Unasyn Severe cardiomyopathy with systolic heart failure and impaired LV function and ejection fraction of 35 to 40% and moderate severe global hypokinesis of the left ventricle, S/P AICD placement and the patient has a biventricular AICD. 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 The most recent CT scan of the chest from 12/16/2024 showed asymmetric soft tissue fullness in the anterior hypopharynx at the level of the vocal cord with similar narrowing of the airway. Dysphagia and failed swallow postextubation. Patient is currently NPO. There is also evidence of oropharyngeal candidiasis Oropharyngeal candidiasis Dysphagia and difficulty swallowing and speech pathology has been involved History of gastroesophageal reflux disease. Hypertension. Rheumatoid arthritis. Hypothyroidism. History of sleep apnea syndrome. History of anxiety/depression. Prior history of tobacco use Plan: Patient is currently on 13 L of oxygen by nasal cannula. Repeat the blood gas Patient is currently n.p.o. due to ongoing dysphagia Continue IV Unasyn Continue bronchodilators Involve physical therapy Continue Diflucan 100 mg IV every 24 hours for oropharyngeal candidiasis The patient states that she has been on long-term steroid maintenance. Continue IV Solu-Medrol 40 mg every 12 hours. Monitor respiratory status closely Repeat labs including CBC and complete metabolic profile Will do another swallow evaluation with the next 24 hours Will continue to follow. Time with Patient: Greater than 30
[2025-01-04 18:36] LABS: ABG HCO3 26 mmol/L (21-25); ABG PCO2 29 mmHg (35-45); ABG PO2 61 mmHg (83-108); ABG TCO2 27 mmol/L (19-24); Allen Test Performed? Yes
[2025-01-04 18:44] LABS: ABG PH 7.56 (7.35-7.45)
[2025-01-04 20:36] LABS: Glucose,Whole Blood 140 mg/dL (70-110)
--- NOTE | 2025-01-04 23:32 | PN ---
PROGRESS NOTE CHIEF COMPLAINT: Aspiration pneumonia. HISTORY OF PRESENT ILLNESS: This lady is awake and alert, but still somewhat lethargic. She is extremely weak. PHYSICAL EXAMINATION: GENERAL: She is pale. CHEST: Clear. CARDIAC: Normal. ABDOMEN: Soft, nontender. IMPRESSION: 1. Status post aspiration pneumonia. 2. Chronic obstructive pulmonary disease. 3. Hypothyroidism. 4. Cancer of the throat. PLAN: 1. Continue with physical and occupational therapy. 2. Start to look at discharge arrangements. MMODL / IJN: [id number] /
[2025-01-05] LABS: Basophils # (A) 0.04 10*3/uL (0.00-0.10); Basophils % (A) 0.4 %; Eosinophils # (A) 0.00 10*3/uL (0.04-0.35); Eosinophils % (A) 0.0 %; HCT 34.9 % (37.2-46.3); HGB 12.0 g/dL (12.0-15.0); Lymphocytes # (A) 0.29 10*3/uL (0.90-5.00); Lymphocytes % (A) 2.7 %; MCH 32.2 pg (27.0-32.0); MCHC 34.4 g/dL (32.0-37.0); MCV 93.6 fL (80.0-97.0); Monocytes # (A) 0.54 10*3/uL (0.20-1.00); Monocytes % (A) 5.0 %; Neutrophils # (A) 9.39 10*3/uL (1.80-7.70); Neutrophils % (A) 86.8 %; Platelet Count 102 10*3/uL (140-440); RBC 3.73 10*6/uL (4.10-5.20); RDW 17.6 % (11.5-14.5); WBC 10.81 10*3/uL (4.50-10.00)
[2025-01-05 00:13] LABS: ALT 52 U/L (4-34); AST 36 U/L (14-36); African American GFR (CKD) >90 (>60 ml/min/1.73 sqM); Albumin 2.5 g/dL (3.5-5.0); Alkaline Phosphatase 74 U/L (38-126); Anion Gap 7 mmol/L; Blood Urea Nitrogen 29 mg/dL (7-17); Calcium 8.0 mg/dL (8.4-10.2); Carbon Dioxide 24 mmol/L (22-30); Chloride 104 mmol/L (98-107); Glucose 146 mg/dL (74-99); Non-African American GFR(CKD) >90 (>60 ml/min/1.73 sqM); Potassium 3.2 mmol/L (3.5-5.1); Sodium 135 mmol/L (137-145); Total Protein 4.8 g/dL (6.3-8.2)
[2025-01-05 06:01] LABS: Glucose,Whole Blood 145 mg/dL (70-110)
[2025-01-05 10:44] LABS: African American GFR (CKD) >90 (>60 ml/min/1.73 sqM); Anion Gap 10 mmol/L; Blood Urea Nitrogen 27 mg/dL (7-17); Calcium 8.0 mg/dL (8.4-10.2); Carbon Dioxide 24 mmol/L (22-30); Chloride 104 mmol/L (98-107); Glucose 137 mg/dL (74-99); Non-African American GFR(CKD) >90 (>60 ml/min/1.73 sqM); Potassium 2.9 mmol/L (3.5-5.1); Sodium 138 mmol/L (137-145)
[2025-01-05 11:30] LABS: Glucose,Whole Blood 136 mg/dL (70-110)
--- NOTE | 2025-01-05 11:31 | P.PN ---
Subjective HISTORY OF PRESENT ILLNESS: Cardiology was reconsulted due to elevated troponin obtained yesterday. Patient apparently developed respiratory distress yesterday and her oxygen requirements are up to 13 L. The patient denied having any chest pain or pressure. However a troponin was obtained for an unknown reason which was resulted at 1.140. PHYSICAL EXAM: VITAL SIGNS: Reviewed. GENERAL: Well-developed in no acute distress. NECK: Supple. No JVD or thyromegaly LUNGS: Respirations even and unlabored. Lungs essentially clear to auscultation bilaterally. HEART: Regular rate and rhythm. S1 and S2 heard. EXTREMITIES: Normal range of motion. No clubbing or cyanosis. Peripheral pulses intact. No lower extremity edema ASSESSMENT: Possible ICD discharge has been ruled out by ICD interrogation Lead impedance on device interrogation Elevated troponin, secondary to type II LA secondary to oxygen supply/demand mismatch, no evidence of acute coronary syndrome Hospitalization in early December with elevated troponins as well Nonischemic cardiomyopathy, EF 35-40% Chronic systolic heart failure Hypertension Dyslipidemia Tobacco use and dependence PAT Acute hypoxic respiratory failure PLAN: Patient's troponin is not indicative of an acute coronary event. Patient denied having any chest pain or pressure. Her troponin elevation is secondary to hypoxia No further patient recommendations from a cardiac standpoint We will sign off. Please reconsult if needed. Nurse practitioner note has been reviewed by physician. Signing provider agrees with the documented findings, assessment, and plan of care documented by [employer] as a scribe. Objective - Vital Signs Vital signs: Vital Signs Temp 99.0 F 01/05/25 08:33 Pulse 92 01/05/25 08:33 Resp 18 01/05/25 08:33 BP 116/78 01/05/25 08:33 Pulse Ox 90 L 01/05/25 08:33 FiO2 50 01/01/25 12:00 Intake & Output 01/04/25 01/05/25 01/05/25 18:59 06:59 18:59 Intake Total 0 Output Total 300 275 Balance -300 -275 Weight 71.5 kg 71 kg Intake: Oral 0 Output: Urine 300 275 Other: Voiding Method Indwelling Catheter Indwelling Catheter Indwelling Catheter ABP, PAP, CO, CI - Last Documented Arterial Blood Pressure 133/68 - Labs CBC & Chem 7: 01/04/25 23:47 01/05/25 10:07 Labs: Abnormal Lab Results - Last 24 Hours (Table) 01/04/25 01/04/25 01/04/25 Range/Units 11:26 12:12 16:45 WBC (4.50-10.00) 10*3/uL RBC (4.10-5.20) 10*6/uL Hct (37.2-46.3) % MCH (27.0-32.0) pg Plt Count (140-440) 10*3/uL Immature Gran # (0.00-0.04) 10*3/uL Neutrophils # (1.80-7.70) 10*3/uL Lymphocytes # (0.90-5.00) 10*3/uL Eosinophils # (0.04-0.35) 10*3/uL ABG pH 7.55 H (7.35-7.45) ABG pCO2 29 L (35-45) mmHg ABG pO2 33 L* (83-108) mmHg ABG HCO3 (21-25) mmol/L ABG Total CO2 26 H (19-24) mmol/L ABG O2 Saturation 71.6 L (94-97) % Sodium (137-145) mmol/L Potassium (3.5-5.1) mmol/L BUN (7-17) mg/dL Creatinine (0.52-1.04) mg/dL Glucose (74-99) mg/dL POC Glucose (mg/dL) 152 H 152 H (70-110) mg/dL Calcium (8.4-10.2) mg/dL ALT (4-34) U/L Troponin I (0.000-0.034) ng/mL Total Protein (6.3-8.2) g/dL Albumin (3.5-5.0) g/dL 01/04/25 01/04/25 01/04/25 Range/Units 18:27 19:17 20:34 WBC (4.50-10.00) 10*3/uL RBC (4.10-5.20) 10*6/uL Hct (37.2-46.3) % MCH (27.0-32.0) pg Plt Count (140-440) 10*3/uL Immature Gran # (0.00-0.04) 10*3/uL Neutrophils # (1.80-7.70) 10*3/uL Lymphocytes # (0.90-5.00) 10*3/uL Eosinophils # (0.04-0.35) 10*3/uL ABG pH 7.56 H* (7.35-7.45) ABG pCO2 29 L (35-45) mmHg ABG pO2 61 L (83-108) mmHg ABG HCO3 26 H (21-25) mmol/L ABG Total CO2 27 H (19-24) mmol/L ABG O2 Saturation (94-97) % Sodium (137-145) mmol/L Potassium (3.5-5.1) mmol/L BUN (7-17) mg/dL Creatinine (0.52-1.04) mg/dL Glucose (74-99) mg/dL POC Glucose (mg/dL) 140 H (70-110) mg/dL Calcium (8.4-10.2) mg/dL ALT (4-34) U/L Troponin I 1.140 H* (0.000-0.034) ng/mL Total Protein (6.3-8.2) g/dL Albumin (3.5-5.0) g/dL 01/04/25 01/04/25 01/05/25 Range/Units 23:39 23:47 06:00 WBC 10.81 H (4.50-10.00) 10*3/uL RBC 3.73 L (4.10-5.20) 10*6/uL Hct 34.9 L (37.2-46.3) % MCH 32.2 H (27.0-32.0) pg Plt Count 102 L (140-440) 10*3/uL Immature Gran # 0.55 H (0.00-0.04) 10*3/uL Neutrophils # 9.39 H (1.80-7.70) 10*3/uL Lymphocytes # 0.29 L (0.90-5.00) 10*3/uL Eosinophils # 0.00 L (0.04-0.35) 10*3/uL ABG pH (7.35-7.45) ABG pCO2 (35-45) mmHg ABG pO2 (83-108) mmHg ABG HCO3 (21-25) mmol/L ABG Total CO2 (19-24) mmol/L ABG O2 Saturation (94-97) % Sodium 135 L (137-145) mmol/L Potassium 3.2 L (3.5-5.1) mmol/L BUN 29 H (7-17) mg/dL Creatinine 0.45 L (0.52-1.04) mg/dL Glucose 146 H (74-99) mg/dL POC Glucose (mg/dL) 145 H (70-110) mg/dL Calcium 8.0 L (8.4-10.2) mg/dL ALT 52 H (4-34) U/L Troponin I (0.000-0.034) ng/mL Total Protein 4.8 L (6.3-8.2) g/dL Albumin 2.5 L (3.5-5.0) g/dL // Range/Units 10:07 WBC (4.50-10.00) 10*3/uL RBC (4.10-5.20) 10*6/uL Hct (37.2-46.3) % MCH (27.0-32.0) pg Plt Count (140-440) 10*3/uL Immature Gran # (0.00-0.04) 10*3/uL Neutrophils # (1.80-7.70) 10*3/uL Lymphocytes # (0.90-5.00) 10*3/uL Eosinophils # (0.04-0.35) 10*3/uL ABG pH (7.35-7.45) ABG pCO2 (35-45) mmHg ABG pO2 (83-108) mmHg ABG HCO3 (21-25) mmol/L ABG Total CO2 (19-24) mmol/L ABG O2 Saturation (94-97) % Sodium (137-145) mmol/L Potassium 2.9 L (3.5-5.1) mmol/L BUN 27 H (7-17) mg/dL Creatinine 0.49 L (0.52-1.04) mg/dL Glucose 137 H (74-99) mg/dL POC Glucose (mg/dL) (70-110) mg/dL Calcium 8.0 L (8.4-10.2) mg/dL ALT (4-34) U/L Troponin I (0.000-0.034) ng/mL Total Protein (6.3-8.2) g/dL Albumin (3.5-5.0) g/dL
[2025-01-05] MEDS: POTASSIUM CHLORIDE 10 MEQ in WATER FOR INJECTION 1 100ML.BAG IVPB SCH (11:54)
[2025-01-05 12:29] LABS: ABG HCO3 25 mmol/L (21-25); ABG PCO2 26 mmHg (35-45); ABG TCO2 26 mmol/L (19-24); Allen Test Performed? Yes
[2025-01-05 12:31] LABS: ABG PH 7.60 (7.35-7.45); ABG PO2 52 mmHg (83-108)
--- NOTE | 2025-01-05 13:01 | XR ---
EXAMINATION TYPE: XR chest 1V portable DATE OF EXAM: 01/05/2025 12:21 PM COMPARISON: 01/04/2025 CLINICAL INDICATION: Female, 69 years old with history of SOB, , FINDINGS: Heart normal size. Left anterior chest wall ICD generator with right atrial, right ventricular, and c oronary sinus leads. There is a small right pleural effusion with patchy right basilar opacity. Addit ional patchy retrocardiac opacity noted. Upper and mid lungs appear clear. IMPRESSION: A small right pleural effusion with adjacent atelectasis and/or consolidation may be slightly increas ed. Patchy retrocardiac opacity persists. [facility], Workstation: Mariana-RED, 01/05/2025 12:58 PM
[2025-01-05 13:07] LABS: Glucose,Whole Blood 149 mg/dL (70-110)
[2025-01-05] MEDS: DEXMEDETOMIDINE/0.9% NACL(PMX) 400 MCG in EMPTY BAG 1 BAG IV SCH (14:10)
[2025-01-05 14:45] LABS: ABG HCO3 25 mmol/L (21-25); ABG PCO2 28 mmHg (35-45); ABG TCO2 26 mmol/L (19-24)
[2025-01-05 14:47] LABS: ABG PH 7.57 (7.35-7.45)
[2025-01-05 14:48] LABS: ABG PO2 57 mmHg (83-108); Allen Test Performed? no
--- NOTE | 2025-01-05 15:06 | XR ---
EXAMINATION TYPE: XR chest 1V portable DATE OF EXAM: 01/05/2025 2:55 PM COMPARISON: 01/05/2025 CLINICAL INDICATION: Female, 69 years old with history of line placement, , FINDINGS: Right IJ CVC tip in the cavoatrial junction. Heart borderline in size. No appreciable pneumothorax. H yperinflation. Left costophrenic angle obscured by the patient's pacemaker generator. There are right atrial, right ventricular, and coronary sinus leads. Mild patchy right basilar density remains. Foca l right midlung opacity now noted. IMPRESSION: 1. Trace right pleural effusion remains. Background COPD. 2. Focal right midlung opacity now apparent. Reassessed at follow-up. [facility], , 01/05/2025 3:03 PM
--- NOTE | 2025-01-05 15:06 | P.PCN ---
Date of Procedure: 01/05/25 Disposition: ICU Description of Procedure: Right Arterial Line INDICATION: Continuous ABG monitoring and blood draws PROCEDURE LAUNDRY OPERATOR: Dr. Minor Yu ATTENDING PHYSICIAN: Dr. Tati Benjamin In Attendance - N CONSENT: [X] During the informed consent discussion regarding the procedure, or treatment, I explained the following to the patient/designee: a. Nature of the procedure or treatment and who will perform the procedure or treatment. b. Necessity for procedure and the possible benefits. c. Risks and complications (most common and serious). d. Alternative treatments and the risks, benefits and side effects of each (including no treatment). e. Likelihood of the patient achieving his/her goals without this procedure and surgery treatment. f. Problems that might occur during the recuperation. g. Conflicts of interest, if any PROCEDURE SUMMARY: A time out was performed. My hands were washed immediately prior to the procedure. I wore a surgical cap, mask with protective eyewear, sterile gown and sterile gloves throughout the procedure. After an Garrick test was performed to ensure adequate perfusion, the Right wrist was prepped using chlorhexidine scrub and draped in sterile fashion using a three quarter sheet drape and sterile towels. The radial pulse was identified and the wrist was positioned in the usual fashion. Anesthesia was achieved using 1% lidocaine. Using the Arrow Radial Arterial Line Kit, a needle was inserted into the radial artery. Arterial blood was seen to pulsate in the flash chamber. The internal guidewire was advanced easily into the radial artery. The catheter was then advanced over the wire and the needle and wire were withdrawn. The catheter was sutured in place. A sterile opsite was placed over the catheter at the insertion site. The patient tolerated the procedure without any hemodynamic compromise. At the time of procedure completion, the catheter was connected to the vehicle monitor technician and calibrated. Appropriate waveform and blood pressure tracing was observed. Estimated blood loss is minimal.
--- NOTE | 2025-01-05 15:32 | P.PN ---
Subjective Progress Note Date: 01/05/25 69-year-old female who looks much older than her stated age, who apparently comes into the emergency department, December 25, brought in by EMS, because apparently she was found down on the floor. She apparently was going to the bathroom, and fell, but did not hurt herself. She believes her defibrillator, went off, but she was not sure. She is not sure if she lost consciousness according to the ER [facility]. She apparently denied any chest pain, or difficulty breathing in the emergency department. Apparently, the patient was evaluated by cardiology, and, apparently there was an issue with the defibrillator. Anyway, the patient was all set to be discharged, but apparently last night, and then today, the patient developed some increasing shortness of breath, and, saturations are quite low, and the patient required more more oxygen, to the point where she was on Airvo. We were asked to see the patient because of her respiratory decline. Chest x-ray appears to show possible minimal infiltrate at the right lung base, she may have aspirated. She apparently has a history of throat cancer, undergoing both chemo and radiation therapy. The status of that is not known. In addition, according to the chart, she has a history of COPD, acid reflux disease, hypertension, rheumatoid arthritis, sleep apnea, hypothyroidism, among other things. She has had a heart catheterization, pacemaker, and AICD placement. We attempted to talk to the family about CODE STATUS. They were not sure of her CODE STATUS although in the chart, apparently she was not to be intubated. The was unsure. The daughter could not be reached. A blood gas was done, showing a PO2 of 39, PCO2 of 31, and a pH of 7 .55. The patient was transferred to the intensive care unit. The blood gas was done on 100% oxygen. White count was 13.2, hemoglobin 15.7, hematocrit 43.1, and platelet count 189,000. Sodium was 127, potassium 4.7, chlorides 90, CO2 23, anion gap 14, BUN 39, creatinine 0.91. Glucose was 143. N-terminal proBNP was 1580. TSH was quite high at 15.1. Home medications included levothyroxine, which the patient may or may not be taking. Chest x-ray from earlier, shows a possible minimal infiltrate, right lower lobe. Apparently the patient has been evaluated by speech pathology. Progress note dated December 30, 2024. 69-year-old female who looks much older than her stated age. We saw her ye sterday in consultation. Patient developed respiratory failure, presumably secondary to aspiration. Patient is currently on the ventilator. She is on volume assist-control, rate 14, tidal volume 450, FiO2 80%, PEEP of 10. Blood gases on 100% show pO2 of 119, pCO2 of 45, pH of 7.35. Art line and central line were placed yesterday. She is on propofol at 40 mcg/kg/min, norepinephrine at 2.8 mcg/min, and saline at 10 cc an hour. She is getting vital high-protein at 10 cc an hour. She continues on azithromycin and Rocephin for aspiration pneumonia. White count of 15.3, hemoglobin 13.9, hematocrit 39.4, platelet count 161,000. Sodium 129, potassium 3.7, chloride 94, CO2 25, BUN 38, creat inine 0.98. Glucose is 186. Calcium 8.2. Chest x-ray shows a small right- sided pleural effusion, and some minimal infiltrate, at the right lung base. Progress note dated December 31, 2024. 69-year-old female seen today in room 262. She remains on volume assist- control, rate 14, tidal volume 450, FiO2 60%, PEEP of 10. Gases on 80% show pO2 of 137, PCO2 of 40, pH of 7.49. She is getting propofol at 40 mcg/kg/min, saline at 15 cc an hour, and vital high-protein at 10 cc, with a goal of 38. The patient is currently on azithromycin and Rocephin. Vancomycin is discontinued. Sputum was positive for Streptococcus pneumoniae. White count 13.6, hemoglobin 12.8, hematocrit 35.7, platelet count 137,000. Sodium 128, potassium 4, chloride 90, CO2 29, BUN 32, creatinine 0.76. Glucose 147. Calc ium 8.1. Chest x-ray continues to show bibasilar infiltrates or atelectasis. On 01/01/2025, the patient is being seen for a follow-up. This morning, the patient has been weaned off the sedation and the patient is arousable and the patient is making good eye contact and following simple commands and answering questions. The patient is on assist-control mode of mechanical ventilation at rate of 14, tidal volume of 450, FiO2 of 50% and a PEEP of 10. The blood gas showed a pH of 7.55 with a [id number] and PO284. The chest x-ray from today shows COPD with some mild patchy atelectatic changes in the left lung base. Hemodynamically stable. White cell count of 13.9, hemothirteen 0.2 and a platelet count of 143. Sodium is at 130 with a potassium level of 3.8, bicarbonate 32, BUN 28 with a creatinine of 0.6. The patient had a sputum sample that was positive for Streptococcus pneumonia and the patient remains on IV Rocephin. The patient remains on bronchodilators and the patient is currentl y on DuoNeb nebulized treatments [id number]. A bedside cuff leak test was done and the patient has adequate air movement around the ET tube and the patient is currently intubated with a #7 orotracheal tube and this intubation was done due to concerns of her previous history of throat cancer. Tube feeds are currently on hold, possible extubation today based on her progress. On 01/02/2025, the patient is being seen for a follow-up. The patient has been weaned off the mechanical ventilator and the patient was extubated and the patient is currently on 2 L of oxygen by nasal cannula. The patient is having some difficulty in swallowing. The cough is weak. No significant respiratory distress. She failed a bedside swallow and the patient will have an official swallow evaluation. Meanwhile, the patient has been kept NPO. She remains on the lactated Ringer at rate of 75 cc an hour. She was also noted to have oropharyngeal candidiasis. She is awake and alert and communicating. The chest x-ray from this morning shows COPD with slightly worsening patchy retrocardiac atelectasis. The patient's WBC count is 11.2 with a hemoglobin of 11.7 and a platelet count of 102. BUN is 23 with a creatinine 0.6. Sodium level is 134 and a potassium level is at 3.5. The patient remains on IV Rocephin 2 g every 24 hours as the patient sputum sample was positive for strep pneumo. The pat ient remains on DuoNeb treatments [id number]. The patient is on Coreg 6.25 mg p.o. twice a day, Synthroid 88 mcg p.o. daily, and Lipitor 80 mg p.o. daily. She is also on aspirin. There is generalized profound weakness in all 4 extremities. Nevertheless, the patient is able to move all 4 extremities and she is following simple commands. Coffee mechanism remains weak. 01/03/2025, the patient is being seen for a follow-up. The patient was transferred out of the intensive care unit postextubation the patient is currently on 2 L of oxygen by nasal cannula. She continues to have some limited congested cough. No significant sputum production. No signs of any significant respiratory distress. She remains profoundly weak and debilitated. She is also having difficulty in swallowing and speech pathology has been involved in the care of the patient is going to undergo a modified barium swallow. The patient also had oropharyngeal candidiasis and the patient is currently taking IV Diflucan. She remains on IV Rocephin regarding a pneumococcal pneumonia with secondary COPD exacerbation. Most recent chest x-ray from 01/02/2025 shows COPD and patchy left lower lobe pulmonary infiltrates/atelectasis/consolidation. The white second 11.2 with a hemoglobin 12.1 and platelet count of 105. Sodium level is at 133, BUN 28 with a creatinine of 0.4. Bicarb is at 21. Glucose is 157. On 01/04/2025, the patient had a coughing COPD. Noted this patient is post ventilator dependent respiratory failure and a pneumococcal pneumonia. The patient remains on IV Rocephin. Episode and following that the patient started having hypoxemia. The patient was brought up from 2 L up to 15 L of nasal cannula. Based on that, further workup was initiated. The patient was given a blood gas that showed acute respiratory alkalosis with a pH of 7.55 and a PCO2 of 29 and PO2 of 33. Subsequently, the patient was placed on 13 L and her current pulse ox is 93%. CT of the chest was also done and the patient had no evidence of any pulmonary embolism. The patient had no filling defects. There was bilateral lower lobe opacities/atelectasis. There is additional few peripheral right upper lobe and lingular groundglass opacities that are minimal and there is also mucous plugging and a trace right-sided pleural effusion. There is also background COPD. Noted the patient is post ventilator dependent respiratory failure and the patient was extubated on 01/02/2025. The patient continued to have dysphagia following her extubation patient is currently NPO. No reported aspiration per nursing staff. Her antibiotic coverage has been switched to IV Unasyn and Rocephin has been discontinued. Remains on bronchodilators. Remains on IV Solu-Medrol. The white cell count from yesterday was 11.2. No labs are available from today. Obviously, her labs need to be repeated. Family is at the bedside. She is arousable and awake although she is quite weak and she seems to be quite debilitated. On 01/05/2025, the patient is being seen for a follow-up. The patient was initially seen on the medical floor and the patient was on 100% of the bed facemask and oxygen nasal cannula at 15 L. Pulse ox was 91%. The patient was lethargic, confused, and sluggishly responsive to verbal or painful stimulation. Noted, the patient was quite hypoxic. Most recent blood gas from this morning showed a pH of 7.6 with a PCO2 of 26 and PO2 of 52 on 100% nonrebreather facemask and oxygen high flow at 15 L. A follow-up chest x-ray was also done that showed small right-sided pleural effusion/atelectasis. Patchy retrocardiac opacity was again present. CT of the chest was also completed yesterday the patient has no evidence of any pulmonary embolism. There is evidence of bilateral lower lobe consolidation and atelectasis and possibly some mucous plugging. Trace right-sided pleural effusion was also noted. The patient was started on IV Unasyn accordingly. Based on ongoing hypoxemia and diminished level of consciousness, the patient was transferred to the intensive care unit. The patient was started on BiPAP. While being on a BiPAP of 12/5 with an FiO2 of 100%, repeat blood gas was done and the patient demonstrated a pH of 7.57 with a pCO2 28 and PO2 of 57. The patient had some difficulty in tolerating the BiPAP and the patient will be started on Precedex to maintain secondary to the BiPAP machine. The patient was given a triple-lumen catheter in the intensive care unit and this was inserted in the right IJ without any complications. No evidence of any pneumothorax post line insertion. Hemodynamically, remained stable. No significant hypotension. The patient was started on lactated Ringer at rate of 75 cc an hour. Antibiotic coverage remains IV Unasyn and Diflucan. Remains on bronchodilators. Remains on IV Solu-Medrol. Currently off diuretics. Remains n.p.o. as the patient had difficulty swallowing post extubation. Objective - Vital Signs Vital signs: Vital Signs Temp 98.3 F 01/05/25 11:57 Pulse 89 01/05/25 11:57 Resp 16 01/05/25 11:57 BP 104/74 01/05/25 11:57 Pulse Ox 86 L 01/05/25 11:57 FiO2 50 01/01/25 12:00 Intake & Output 01/04/25 01/05/25 01/05/25 18:59 06:59 18:59 Intake Total 0 Output Total 300 275 Balance -300 -275 Weight 71.5 kg 71 kg Intake: Oral 0 Output: Urine 300 275 Other: Voiding Method Indwelling Catheter Indwelling Catheter Indwelling Catheter ABP, PAP, CO, CI - Last Documented Arterial Blood Pressure 133/68 - Exam currently on BiPAP with diminished level of consciousness the patient was started on Precedex to maintain synchrony with the BiPAP machine. Patient is on a BiPAP with an FiO2 of 100%. HEENT examination is grossly unremarkable. No stridor noted on physical examination. Neck supple. Full range of motion. No adenopathy thyromegaly or neck vein dis tention. Cardiovascular examination reveals regular rhythm rate. S1-S2 normal. No S3 or S4. No discernible murmur noted. Heart sounds are distant. Lungs reveal scattered bilateral rhonchi. No wheezes or crackles. Breath sounds equal. No breath sounds are equal and symmetrical and there is no significant wheezing at this point. Abdomen soft bowel sounds are heard. No masses or tenderness. Extremities are intact. No cyanosis clubbing or edema. Skin is without rash or lesion. Neurologic examination is adequate and the patient is moving all 4 extremities and generalized global weakness in all 4 extremities. Neurologic exam is nonfocal. The patient very sluggish, lethargic and has diminished level of consciousness. No focal neurological deficits. - Labs CBC & Chem 7: 01/04/25 23:47 01/05/25 11:49 Labs: Abnormal Lab Results - Last 24 Hours (Table) 01/04/25 01/04/25 01/04/25 Range/Units 12:12 16:45 18:27 WBC (4.50-10.00) 10*3/uL RBC (4.10-5.20) 10*6/uL Hct (37.2-46.3) % MCH (27.0-32.0) pg Plt Count (140-440) 10*3/uL Immature Gran # (0.00-0.04) 10*3/uL Neutrophils # (1.80-7.70) 10*3/uL Lymphocytes # (0.90-5.00) 10*3/uL Eosinophils # (0.04-0.35) 10*3/uL ABG pH 7.55 H 7.56 H* (7.35-7.45) ABG pCO2 29 L 29 L (35-45) mmHg ABG pO2 33 L* 61 L (83-108) mmHg ABG HCO3 26 H (21-25) mmol/L ABG Total CO2 26 H 27 H (19-24) mmol/L ABG O2 Saturation 71.6 L (94-97) % Sodium (137-145) mmol/L Potassium (3.5-5.1) mmol/L BUN (7-17) mg/dL Creatinine (0.52-1.04) mg/dL Glucose (74-99) mg/dL POC Glucose (mg/dL) 152 H (70-110) mg/dL Calcium (8.4-10.2) mg/dL ALT (4-34) U/L Troponin I (0.000-0.034) ng/mL Total Protein (6.3-8.2) g/dL Albumin (3.5-5.0) g/dL 01/04/25 01/04/25/ Range/Units 19:17 20:34 23:39 WBC (4.50-10.00) 10*3/uL RBC (4.10-5.20) 10*6/uL Hct (37.2-46.3) % MCH (27.0-32.0) pg Plt Count (140-440) 10*3/uL Immature Gran # (0.00-0.04) 10*3/uL Neutrophils # (1.80-7.70) 10*3/uL Lymphocytes # (0.90-5.00) 10*3/uL Eosinophils # (0.04-0.35) 10*3/uL ABG pH (7.35-7.45) ABG pCO2 (35-45) mmHg ABG pO2 (83-108) mmHg ABG HCO3 (21-25) mmol/L ABG Total CO2 (19-24) mmol/L ABG O2 Saturation (94-97) % Sodium 135 L (137-145) mmol/L Potassium 3.2 L (3.5-5.1) mmol/L BUN 29 H (7-17) mg/dL Creatinine 0.45 L (0.52-1.04) mg/dL Glucose 146 H (74-99) mg/dL POC Glucose (mg/dL) 140 H (70-110) mg/dL Calcium 8.0 L (8.4-10.2) mg/dL ALT 52 H (4-34) U/L Troponin I 1.140 H* (0.000-0.034) ng/mL Total Protein 4.8 L (6.3-8.2) g/dL Albumin 2.5 L (3.5-5.0) g/dL 01/04/25 01/05/25 01/05/25 Range/Units 23:47 06:00 10:07 WBC 10.81 H (4.50-10.00) 10*3/uL RBC 3.73 L (4.10-5.20) 10*6/uL Hct 34.9 L (37.2-46.3) % MCH 32.2 H (27.0-32.0) pg Plt Count 102 L (140-440) 10*3/uL Immature Gran # 0.55 H (0.00-0.04) 10*3/uL Neutrophils # 9.39 H (1.80-7.70) 10*3/uL Lymphocytes # 0.29 L (0.90-5.00) 10*3/uL Eosinophils # 0.00 L (0.04-0.35) 10*3/uL ABG pH (7.35-7.45) ABG pCO2 (35-45) mmHg ABG pO2 (83-108) mmHg ABG HCO3 (21-25) mmol/L ABG Total CO2 (19-24) mmol/L ABG O2 Saturation (94-97) % Sodium (137-145) mmol/L Potassium 2.9 L (3.5-5.1) mmol/L BUN 27 H (7-17) mg/dL Creatinine 0.49 L (0.52-1.04) mg/dL Glucose 137 H (74-99) mg/dL POC Glucose (mg/dL) 145 H (70-110) mg/dL Calcium 8.0 L (8.4-10.2) mg/dL ALT (4-34) U/L Troponin I (0.000-0.034) ng/mL Total Protein (6.3-8.2) g/dL Albumin (3.5-5.0) g/dL 01/05/25 Range/Units 11:28 WBC (4.50-10.00) 10*3/uL RBC (4.10-5.20) 10*6/uL Hct (37.2-46.3) % MCH (27.0-32.0) pg Plt Count (140-440) 10*3/uL Immature Gran # (0.00-0.04) 10*3/uL Neutrophils # (1.80-7.70) 10*3/uL Lymphocytes # (0.90-5.00) 10*3/uL Eosinophils # (0.04-0.35) 10*3/uL ABG pH (7.35-7.45) ABG pCO2 (35-45) mmHg ABG pO2 (83-108) mmHg ABG HCO3 (21-25) mmol/L ABG Total CO2 (19-24) mmol/L ABG O2 Saturation (94-97) % Sodium (137-145) mmol/L Potassium (3.5-5.1) mmol/L BUN (7-17) mg/dL Creatinine (0.52-1.04) mg/dL Glucose (74-99) mg/dL POC Glucose (mg/dL) 136 H (70-110) mg/dL Calcium (8.4-10.2) mg/dL ALT (4-34) U/L Troponin I (0.000-0.034) ng/mL Total Protein (6.3-8.2) g/dL Albumin (3.5-5.0) g/dL Assessment and Plan Plan: Acute hypoxemic respiratory failure, requiring intubation, and mechanical ventilation, and the patient was intubated on 12/29/2024. The patient has a pneumococcal pneumonia involving the left lower lobe. Patient remains on IV Rocephin. Patient was extubated on 01/01/2025 and the patient is currently on 2 L of oxygen by nasal cannula. Subsequently, this afternoon on 01/04/2025, the patient developed an acute hypoxic respiratory failure and the patient was placed on 30 L of oxygen by nasal cannula. CT of the chest shows lower lobe con solidations. No evidence of any pulmonary embolism. Questionable aspiration as the patient continues to have dysphagia. The patient has been switched to IV Unasyn. On 01/05/2025, the patient was again found to be hypoxic on 100% nonrebreather facemask with a high flow oxygen. Based on that, the patient got transferred to the intensive care unit and the patient was started on a BiPAP. Considering intubation and mechanical ventilation. Left lower lobe pneumococcal pneumonia, currently on IV Unasyn, and the chest x- ray shows stable lower lobe pulmonary consolidations. Severe cardiomyopathy with systolic heart failure and impaired LV function and ejection fraction of 35 to 40% and moderate severe global hypokinesis of the left ventricle, S/P AICD placement and the patient has a biventricular AICD. 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 The most recent CT scan of the chest from 12/16/2024 showed asymmetric soft tissue fullness in the anterior hypopharynx at the level of the vocal cord with similar narrowing of the airway. Dysphagia and failed swallow postextubation. Patient is currently NPO. There is also evidence of oropharyngeal candidiasis Oropharyngeal candidiasis, currently on IV Diflucan Dysphagia and difficulty swallowing and speech pathology has been involved and the patient is currently n.p.o. History of gastroesophageal reflux disease. Hypertension. Rheumatoid arthritis. Hypothyroidism. History of sleep apnea syndrome. History of anxiety/depression. Prior history of tobacco use Plan: Patient is currently on BiPAP and will continue the BiPAP and monitor his blood Oxygenation Repeat the blood gas at 1600 Possible intubation mechanical ventilation if there is no improvement in the patient's oxygenation. If intubated, the patient will also need bronchoscopy to rule out any mucous plugs Precedex to maintain synchrony and tolerability to BiPAP therapy. Patient is currently n.p.o. due to ongoing dysphagia Continue IV Unasyn Continue IV Diflucan Continue bronchodilators Continue IV Solu-Medrol 40 mg every 12 hours. Lactated Ringer at rate of75 cc an hour Monitor respiratory status closely Repeat labs including CBC and complete metabolic profile Triple-lumen catheter has been established. Will check a CVP Will establish an arterial line Will continue to follow. Condition is obviously critical, possible intubation mechanical ventilation based on her progress. Time with Patient: Greater than 30
--- NOTE | 2025-01-05 15:36 | P.PCN ---
Date of Procedure: 01/05/25 Anesthesia: local Surgeon: Tati Benjamin Estimated Blood Loss (ml): 0 Operative Findings: Indication: Hemodynamic monitoring/Intravenous access. A time-out was completed verifying correct patient, procedure, site, positioning, and implant(s) or special equipment if applicable. The patient was placed in a dependent position appropriate for triple lumen catheter placement based on the vein to be cannulated. The patient's right internal jugular area was prepped and draped in sterile fashion. 1% Lidocaine was used to anesthetize the surrounding skin area. A triple lumen 9F Cordis catheter was introduced into the internal jugular vein using Seldinger technique. The catheter was threaded smoothly over the guide wire and appropriate blood return was obtained. Each lumen of the catheter was evacuated of air and flushed with sterile saline. The catheter was then sutured in place to the skin and a sterile dressing applied. Perfusion to the extremity distal to the point of catheter insertion was checked and found to be adequate. Indication: Hemodynamic monitoring. A time-out was completed verifying correct patient, procedure, site, positioning, and implant(s) or special equipment if applicable. AllenÂ´s test was performed to ensure adequate perfusion. The patientÂ´s right wrist was prepped and draped in sterile fashion. 1% Lidocaine was used to anesthetize the area. An 18G Arrow arterial line was introduced into the right radial artery. The catheter was threaded over the guide wire and the needle was removed with appropriate pulsatile blood return. Blood loss was minimal. The catheter was then sutured in place to the skin and a sterile dressing applied. Perfusion to the extremity distal to the point of catheter insertion was checked and found to be adequate. The patient tolerated the procedure well and there were no complications.
[2025-01-05 17:15] LABS: Glucose,Whole Blood 162 mg/dL (70-110)
[2025-01-05 17:21] LABS: ABG HCO3 26 mmol/L (21-25); ABG PCO2 30 mmHg (35-45); ABG PH 7.53 (7.35-7.45); ABG PO2 87 mmHg (83-108); ABG TCO2 27 mmol/L (19-24)
[2025-01-05 17:22] LABS: Allen Test Performed? no
[2025-01-05 22:15] LABS: Glucose,Whole Blood 165 mg/dL (70-110)
[2025-01-05] MEDS: LACTATED RINGERS 1,000 ML IV ONE (23:18)
--- NOTE | 2025-01-06 03:39 | PN ---
PROGRESS NOTE CHIEF COMPLAINT: Hypoxia and mental status changes. HISTORY OF PRESENT ILLNESS: This lady remains quite lethargic. She is unarousable. It is also noted that her potassium was quite low at 2.9. PHYSICAL EXAMINATION: GENERAL: She is pale. CHEST: Breath sounds are shallow and they are heard bilaterally. CARDIAC: Normal. IMPRESSION: 1. Aspiration pneumonia. 2. Mental status changes. 3. Hypokalemia. PLAN: 1. Try to re-establish her potassium level. She may require parenteral treatment. Speech Therapy is suggesting a feeding tube and General Surgery will be consulted for PEG tube. 2. Order a repeat serum and urine spot potassium. 3. She is going to be moved to ICU because of her of minimal responsiveness. MMODL / IJN: [id number] /
[2025-01-06 05:18] LABS: ABG HCO3 26 mmol/L (21-25); ABG PCO2 31 mmHg (35-45); ABG PH 7.53 (7.35-7.45); ABG PO2 89 mmHg (83-108); ABG TCO2 27 mmol/L (19-24)
[2025-01-06 05:21] LABS: Allen Test Performed? no
[2025-01-06 05:55] LABS: Glucose,Whole Blood 155 mg/dL (70-110)
[2025-01-06 06:35] LABS: HCT 31.1 % (37.2-46.3); HGB 10.5 g/dL (12.0-15.0); MCH 31.6 pg (27.0-32.0); MCHC 33.8 g/dL (32.0-37.0); MCV 93.7 fL (80.0-97.0); Platelet Count 100 10*3/uL (140-440); RBC 3.32 10*6/uL (4.10-5.20); RDW 17.7 % (11.5-14.5); WBC 11.59 10*3/uL (4.50-10.00)
[2025-01-06 06:56] LABS: African American GFR (CKD) >90 (>60 ml/min/1.73 sqM); Anion Gap 10 mmol/L; Blood Urea Nitrogen 28 mg/dL (7-17); Calcium 8.2 mg/dL (8.4-10.2); Carbon Dioxide 22 mmol/L (22-30); Chloride 104 mmol/L (98-107); Glucose 138 mg/dL (74-99); Magnesium 1.8 mg/dL (1.6-2.3); Non-African American GFR(CKD) >90 (>60 ml/min/1.73 sqM); Potassium 3.5 mmol/L (3.5-5.1); Sodium 136 mmol/L (137-145)
[2025-01-06] MEDS ORDERED: Potassium Replacement Protocol 1 EACH MISC MISCELLANE PRN (07:03)
[2025-01-06] MEDS ORDERED: Magnesium Replacement Protocol 1 EACH MISC MISCELLANE PRN (07:03)
--- NOTE | 2025-01-06 07:23 | XR ---
EXAMINATION TYPE: XR chest 1V portable DATE OF EXAM: 01/06/2025 4:53 AM COMPARISON: Chest radiograph from one day prior. CLINICAL INDICATION: Female, 69 years old with history of Resp Distress, Bipap 100%; [facility] TECHNIQUE: XR chest 1V portable Frontal view of the chest. FINDINGS: Lungs/Pleura: Right lower lobe airspace opacities. There is no evidence of pleural effusion, focal co nsolidation, or pneumothorax. Pulmonary vascularity: Unremarkable. Heart/mediastinum: Cardiomediastinal silhouette is unremarkable. Three lead cardiac conduction device overlying the left hemithorax with lead tips projecting over the right ventricle, right atrium and c oronary sinus. Musculoskeletal: No acute osseous pathology. Other findings: None Lines/Tubes: Right internal jugular central venous catheter with distal tip at the cavoatrial junction. IMPRESSION: Similar right lower lobe airspace opacities [facility], , 01/06/2025 7:21 AM
[2025-01-06] MEDS: POTASSIUM CHLORIDE 10 MEQ in WATER FOR INJECTION 1 100ML.BAG IVPB SCH (09:31)
[2025-01-06] MEDS: MAGNESIUM SULFATE-D5W PMX 1 GM in DEXTROSE/WATER 1 100ML.BAG IVPB ONE (09:32)
[2025-01-06 10:44] LABS: ABG HCO3 22 mmol/L (21-25); ABG PCO2 23 mmHg (35-45); ABG PO2 128 mmHg (83-108); ABG TCO2 23 mmol/L (19-24); Allen Test Performed? Yes
[2025-01-06 11:00] LABS: ABG PH 7.60 (7.35-7.45)
[2025-01-06] MEDS: LACTATED RINGERS 1,000 ML IV ONE (11:00)
--- NOTE | 2025-01-06 11:03 | XR ---
EXAMINATION TYPE: XR chest 1V portable DATE OF EXAM: 01/06/2025 10:55 AM COMPARISON: Chest radiographs from 01/06/2025. CLINICAL INDICATION: Female, 69 years old with history of Tube placement; [facility] TECHNIQUE: XR chest 1V portable Frontal view of the chest. FINDINGS: Lungs/Pleura: There is no evidence of pleural effusion, focal consolidation, or pneumothorax. Pulmonary vascularity: Unremarkable. Heart/mediastinum: Cardiomediastinal silhouette is unremarkable. Three lead cardiac conduction device overlying the left hemithorax with lead tips projecting over the right ventricle, right atrium and c oronary sinus. Musculoskeletal: No acute osseous pathology. Other findings: None Lines/Tubes: Endotracheal tube with distal tip 3.5 Cm above the azael. Nasogastric tube with its distal tip and side-port projecting under the diaphragm. Right internal jugular central venous catheter with distal tip at the cavoatrial junction. IMPRESSION: No acute cardiopulmonary disease/process. [facility], , 01/06/2025 11:01 AM
[2025-01-06] MEDS: NOREPINEPHRINE 8 MG in SODIUM CHLORIDE 0.9% 250 ML IV SCH (11:45)
[2025-01-06 11:56] LABS: Glucose,Whole Blood 149 mg/dL (70-110)
--- NOTE | 2025-01-06 14:48 | P.PN ---
Subjective Progress Note Date: 01/06/25 69-year-old female who looks much older than her stated age, who apparently comes into the emergency department, December 25, brought in by EMS, because apparently she was found down on the floor. She apparently was going to the bathroom, and fell, but did not hurt herself. She believes her defibrillator, went off, but she was not sure. She is not sure if she lost consciousness according to the [facility]. She apparently denied any chest pain, or difficulty breathing in the emergency department. Apparently, the patient was evaluated by cardiology, and, apparently there was an issue with the defibrillator. Anyway, the patient was all set to be discharged, but apparently last night, and then today, the patient developed some increasing shortness of breath, and, saturations are quite low, and the patient required more more oxygen, to the point where she was on Airvo. We were asked to see the patient because of her respiratory decline. Chest x-ray appears to show possible minimal infiltrate at the right lung base, she may have aspirated. She apparently has a history of throat cancer, undergoing both chemo and radiation therapy. The status of that is not known. In addition, according to the chart, she has a history of COPD, acid reflux disease, hypertension, rheumatoid arthritis, sleep apnea, hypothyroidism, among other things. She has had a heart catheterization, pacemaker, and AICD placement. We attempted to talk to the family about CODE STATUS. They were not sure of her CODE STATUS although in the chart, apparently she was not to be intubated. The was unsure. The daughter could not be reached. A blood gas was done, showing a PO2 of 39, PCO2 of 31, and a pH of 7 .55. The patient was transferred to the intensive care unit. The blood gas was done on 100% oxygen. White count was 13.2, hemoglobin 15.7, hematocrit 43.1, and platelet count 189,000. Sodium was 127, potassium 4.7, chlorides 90, CO2 23, anion gap 14, BUN 39, creatinine 0.91. Glucose was 143. N-terminal proBNP was 1580. TSH was quite high at 15.1. Home medications included levothyroxine, which the patient may or may not be taking. Chest x-ray from earlier, shows a possible minimal infiltrate, right lower lobe. Apparently the patient has been evaluated by speech pathology. Progress note dated December 30, 2024. 69-year-old female who looks much older than her stated age. We saw her ye sterday in consultation. Patient developed respiratory failure, presumably secondary to aspiration. Patient is currently on the ventilator. She is on volume assist-control, rate 14, tidal volume 450, FiO2 80%, PEEP of 10. Blood gases on 100% show pO2 of 119, pCO2 of 45, pH of 7.35. Art line and central line were placed yesterday. She is on propofol at 40 mcg/kg/min, norepinephrine at 2.8 mcg/min, and saline at 10 cc an hour. She is getting vital high-protein at 10 cc an hour. She continues on azithromycin and Rocephin for aspiration pneumonia. White count of 15.3, hemoglobin 13.9, hematocrit 39.4, platelet count 161,000. Sodium 129, potassium 3.7, chloride 94, CO2 25, BUN 38, creat inine 0.98. Glucose is 186. Calcium 8.2. Chest x-ray shows a small right- sided pleural effusion, and some minimal infiltrate, at the right lung base. Progress note dated December 31, 2024. 69-year-old female seen today in room 262. She remains on volume assist- control, rate 14, tidal volume 450, FiO2 60%, PEEP of 10. Gases on 80% show pO2 of 137, PCO2 of 40, pH of 7.49. She is getting propofol at 40 mcg/kg/min, saline at 15 cc an hour, and vital high-protein at 10 cc, with a goal of 38. The patient is currently on azithromycin and Rocephin. Vancomycin is discontinued. Sputum was positive for Streptococcus pneumoniae. White count 13.6, hemoglobin 12.8, hematocrit 35.7, platelet count 137,000. Sodium 128, potassium 4, chloride 90, CO2 29, BUN 32, creatinine 0.76. Glucose 147. Calc ium 8.1. Chest x-ray continues to show bibasilar infiltrates or atelectasis. On 01/01/2025, the patient is being seen for a follow-up. This morning, the patient has been weaned off the sedation and the patient is arousable and the patient is making good eye contact and following simple commands and answering questions. The patient is on assist-control mode of mechanical ventilation at rate of 14, tidal volume of 450, FiO2 of 50% and a PEEP of 10. The blood gas showed a pH of 7.55 with a [id number] and PO284. The chest x-ray from today shows COPD with some mild patchy atelectatic changes in the left lung base. Hemodynamically stable. White cell count of 13.9, hemothirteen 0.2 and a platelet count of 143. Sodium is at 130 with a potassium level of 3.8, bicarbonate 32, BUN 28 with a creatinine of 0.6. The patient had a sputum sample that was positive for Streptococcus pneumonia and the patient remains on IV Rocephin. The patient remains on bronchodilators and the patient is currentl y on DuoNeb nebulized treatments [id number]. A bedside cuff leak test was done and the patient has adequate air movement around the ET tube and the patient is currently intubated with a #7 orotracheal tube and this intubation was done due to concerns of her previous history of throat cancer. Tube feeds are currently on hold, possible extubation today based on her progress. On 01/02/2025, the patient is being seen for a follow-up. The patient has been weaned off the mechanical ventilator and the patient was extubated and the patient is currently on 2 L of oxygen by nasal cannula. The patient is having some difficulty in swallowing. The cough is weak. No significant respiratory distress. She failed a bedside swallow and the patient will have an official swallow evaluation. Meanwhile, the patient has been kept NPO. She remains on the lactated Ringer at rate of 75 cc an hour. She was also noted to have oropharyngeal candidiasis. She is awake and alert and communicating. The chest x-ray from this morning shows COPD with slightly worsening patchy retrocardiac atelectasis. The patient's WBC count is 11.2 with a hemoglobin of 11.7 and a platelet count of 102. BUN is 23 with a creatinine 0.6. Sodium level is 134 and a potassium level is at 3.5. The patient remains on IV Rocephin 2 g every 24 hours as the patient sputum sample was positive for strep pneumo. The pat ient remains on DuoNeb treatments [id number]. The patient is on Coreg 6.25 mg p.o. twice a day, Synthroid 88 mcg p.o. daily, and Lipitor 80 mg p.o. daily. She is also on aspirin. There is generalized profound weakness in all 4 extremities. Nevertheless, the patient is able to move all 4 extremities and she is following simple commands. Coffee mechanism remains weak. 01/03/2025, the patient is being seen for a follow-up. The patient was transferred out of the intensive care unit postextubation the patient is currently on 2 L of oxygen by nasal cannula. She continues to have some limited congested cough. No significant sputum production. No signs of any significant respiratory distress. She remains profoundly weak and debilitated. She is also having difficulty in swallowing and speech pathology has been involved in the care of the patient is going to undergo a modified barium swallow. The patient also had oropharyngeal candidiasis and the patient is currently taking IV Diflucan. She remains on IV Rocephin regarding a pneumococcal pneumonia with secondary COPD exacerbation. Most recent chest x-ray from 01/02/2025 shows COPD and patchy left lower lobe pulmonary infiltrates/atelectasis/consolidation. The white second 11.2 with a hemoglobin 12.1 and platelet count of 105. Sodium level is at 133, BUN 28 with a creatinine of 0.4. Bicarb is at 21. Glucose is 157. On 01/04/2025, the patient had a coughing COPD. Noted this patient is post ventilator dependent respiratory failure and a pneumococcal pneumonia. The patient remains on IV Rocephin. Episode and following that the patient started having hypoxemia. The patient was brought up from 2 L up to 15 L of nasal cannula. Based on that, further workup was initiated. The patient was given a blood gas that showed acute respiratory alkalosis with a pH of 7.55 and a PCO2 of 29 and PO2 of 33. Subsequently, the patient was placed on 13 L and her current pulse ox is 93%. CT of the chest was also done and the patient had no evidence of any pulmonary embolism. The patient had no filling defects. There was bilateral lower lobe opacities/atelectasis. There is additional few peripheral right upper lobe and lingular groundglass opacities that are minimal and there is also mucous plugging and a trace right-sided pleural effusion. There is also background COPD. Noted the patient is post ventilator dependent respiratory failure and the patient was extubated on 01/02/2025. The patient continued to have dysphagia following her extubation patient is currently NPO. No reported aspiration per nursing staff. Her antibiotic coverage has been switched to IV Unasyn and Rocephin has been discontinued. Remains on bronchodilators. Remains on IV Solu-Medrol. The white cell count from yesterday was 11.2. No labs are available from today. Obviously, her labs need to be repeated. Family is at the bedside. She is arousable and awake although she is quite weak and she seems to be quite debilitated. On 01/05/2025, the patient is being seen for a follow-up. The patient was initially seen on the medical floor and the patient was on 100% of the bed facemask and oxygen nasal cannula at 15 L. Pulse ox was 91%. The patient was lethargic, confused, and sluggishly responsive to verbal or painful stimulation. Noted, the patient was quite hypoxic. Most recent blood gas from this morning showed a pH of 7.6 with a PCO2 of 26 and PO2 of 52 on 100% nonrebreather facemask and oxygen high flow at 15 L. A follow-up chest x-ray was also done that showed small right-sided pleural effusion/atelectasis. Patchy retrocardiac opacity was again present. CT of the chest was also completed yesterday the patient has no evidence of any pulmonary embolism. There is evidence of bilateral lower lobe consolidation and atelectasis and possibly some mucous plugging. Trace right-sided pleural effusion was also noted. The patient was started on IV Unasyn accordingly. Based on ongoing hypoxemia and diminished level of consciousness, the patient was transferred to the intensive care unit. The patient was started on BiPAP. While being on a BiPAP of 12/5 with an FiO2 of 100%, repeat blood gas was done and the patient demonstrated a pH of 7.57 with a pCO2 28 and PO2 of 57. The patient had some difficulty in tolerating the BiPAP and the patient will be started on Precedex to maintain secondary to the BiPAP machine. The patient was given a triple-lumen catheter in the intensive care unit and this was inserted in the right IJ without any complications. No evidence of any pneumothorax post line insertion. Hemodynamically, remained stable. No significant hypotension. The patient was started on lactated Ringer at rate of 75 cc an hour. Antibiotic coverage remains IV Unasyn and Diflucan. Remains on bronchodilators. Remains on IV Solu-Medrol. Currently off diuretics. Remains n.p.o. as the patient had difficulty swallowing post extubation. On 01/06/2025, the patient is being seen in the intensive care unit. Extremely lethargic, weak, difficult to arouse, remains on a BiPAP with borderline oxygenation. The patient has been kept on a BiPAP at a pressure of 10 over 5 cm of water and FiO2 of 80%. The blood gas showed some improvement in oxygenation and the morning blood gas showed a pH of 7.33 with a pCO2 of 31 and pO2 of 89. The patient continues to moan and c occasionally cries for help. She states that she is unable to breathe. The exact cause for her underlying hypoxemia is not clear. Suspect mucous plugs. Noted I reviewed the chest x-ray from this morning and the patient has no clear airspace disease or consolidation. There is some right lower lobe airspace opacity. Otherwise, no significant abnormalities to explain the patient's hypoxemia. The same time, his CT of the chest was done on 01/04/2025 showed bilateral lower lobe consolidation and atelectasis. There was also a few peripheral right upper lobe and lingular groundglass opacities. Findings were trivial and there was no evidence of any pulmonary embolism. A trace right-sided pleural effusion was noted. Based on her critical and borderline respiratory status, I decided to go ahead and [facility] the patient. I performed intubation the Glydo scope. I examined the upper airway structures and the vocal cords seem to be quite patent and open and there was no significant supraglottic narrowing of concern. The patient was intubated by #8 orotracheal tube via the glide scope. Following that, I performed a bronchoscopy and the patient did have some purulent mucous plugs in the lower lobes bilaterally, right more than left and total amount of purulent respiratory secretions were suctioned out was in order 50 cc. Meanwhile, the patient was kept on a mechanical ventilator. Currently, the patient is in assist-control mode at rate of 40, tidal volume of 450, FiO2 100% with a PEEP of 5. Blood gas showed a pH of 7.6 with a PCO2 of 23 and PO2 of 128. Postintubation chest x-ray shows no acute cardiopulmonary process. ET tube with distal tip 3.5 cm above the azael. NG tube was also in good location. Morning blood work showed a WBC count of 11.5, hemoglobin 10.7 and platelet count of 100. Sodium is at 136, potassium is at 3.5, BUN 28 and creatinine 0.4. Blood sugar is at 149. The patient is currently on IV Unasyn as a broad-spectrum antibiotics as the patient had a pneumococcal pneumonia at time of admission. The patient remains on DuoNeb nebulizer treatments [id number], IV Solu-Medrol, 40 mg every 12 hours. Patient is also on Diflucan for oropharyngeal candidiasis. Remains on Coreg, Lipitor and aspirin. Objective - Vital Signs Vital signs: Vital Signs Temp 97.5 F L 01/06/25 06:00 Pulse 80 01/06/25 07:00 Resp 14 01/06/25 07:00 BP 114/72 01/06/25 07:00 Pulse Ox 97 01/06/25 07:00 FiO2 80 01/06/25 07:00 Intake & Output 01/05/25 01/06/25 01/06/25 18:59 06:59 18:59 Intake Total 895.058 9280.116 198 Output Total 190 260 20 Balance 188.192 6408.116 178 Weight 71 kg Intake: IV 352 1136 98 0.9 40 200 20 Lactated Ringers 1,000 ml 300 900 75 @ 75 mls/hr IV .[id number] [facility] Rx#:[id number] Pressure bag 12 36 3 Intake, IV Titration 25.057 1430.116 100 Amount Ampicillin-Sulbactam 3 gm 200 100 In Sodium Chloride 0.9% 100 ml @ 200 mls/hr IVPB Q6HR [facility] Rx#:[id number] Dexmedetomidine/0.9% NaCl 25.057 30.116 (Pmx) 400 mcg In Empty Bag 1 bag @ 0.2 MCG/KG/HR 3.55 mls/hr IV .Q24H [facility] Rx#:[id number] Lactated Ringers 1,000 ml 1000 @ 999 mls/hr IV .Q1H1M [facility] Rx#:[id number] Potassium Chloride 10 meq 200 In Water For Injection 1 100ml.bag @ 100 mls/hr IVPB Q1HR [facility] Rx#: [id number] Oral 0 Output: Urine 190 260 20 Other: Voiding Method Indwelling Catheter Indwelling Catheter # Bowel Movements 1 ABP, PAP, CO, CI - Last Documented Arterial Blood Pressure 133/67 - Exam Sedated on propofol, currently intubated on mechanical ventilator. Orogastric and orotracheal tube are both in place. Calm and comfortable. HEENT examination is grossly unremarkable. No stridor noted on physical examination. The patient has a left subclavian triple-lumen catheter. Neck supple. Full range of motion. No adenopathy thyromegaly or neck vein distention. Cardiovascular examination reveals regular rhythm rate. S1-S2 normal. No S3 or S4. No discernible murmur noted. Heart sounds are distant. Lungs reveal scattered bilateral rhonchi. No wheezes or crackles. Breath sounds equal. No breath sounds are equal and symmetrical and there is no significant wheezing at this point. Abdomen soft bowel sounds are heard. No masses or tenderness. Extremities are intact. No cyanosis clubbing or edema. Skin is without rash or lesion. Neurologic examination is nonfocal and the patient is currently adequately sedated. - Labs CBC & Chem 7: 01/06/25 05:00 01/06/25 04:00 Labs: Abnormal Lab Results - Last 24 Hours (Table) 01/05/25 01/05/25 01/05/25 Range/Units 10:07 11:28 11:49 WBC (4.50-10.00) 10*3/uL RBC (4.10-5.20) 10*6/uL Hgb (12.0-15.0) g/dL Hct (37.2-46.3) % Plt Count (140-440) 10*3/uL ABG pH (7.35-7.45) ABG pCO2 (35-45) mmHg ABG pO2 (83-108) mmHg ABG HCO3 (21-25) mmol/L ABG Total CO2 (19-24) mmol/L ABG O2 Saturation (94-97) % Hemoglobin (11.4-16.0) gm/dL Sodium (137-145) mmol/L Potassium 2.9 L 3.1 L (3.5-5.1) mmol/L BUN 27 H (7-17) mg/dL Creatinine 0.49 L (0.52-1.04) mg/dL Glucose 137 H (74-99) mg/dL POC Glucose (mg/dL) 136 H (70-110) mg/dL Calcium 8.0 L (8.4-10.2) mg/dL 01/05/25 01/05/25 01/05/25 Range/Units 12:25 12:55 14:39 WBC (4.50-10.00) 10*3/uL RBC (4.10-5.20) 10*6/uL Hgb (12.0-15.0) g/dL Hct (37.2-46.3) % Plt Count (140-440) 10*3/uL ABG pH 7.60 H* 7.57 H* (7.35-7.45) ABG pCO2 26 L 28 L (35-45) mmHg ABG pO2 52 L* 57 L* (83-108) mmHg ABG HCO3 (21-25) mmol/L ABG Total CO2 26 H 26 H (19-24) mmol/L ABG O2 Saturation 91.7 L 92.8 L (94-97) % Hemoglobin (11.4-16.0) gm/dL Sodium (137-145) mmol/L Potassium (3.5-5.1) mmol/L BUN (7-17) mg/dL Creatinine (0.52-1.04) mg/dL Glucose (74-99) mg/dL POC Glucose (mg/dL) 149 H (70-110) mg/dL Calcium (8.4-10.2) mg/dL 01/05/25 01/05/25 01/05/25 Range/Units 17:14 17:17 22:13 WBC (4.50-10.00) 10*3/uL RBC (4.10-5.20) 10*6/uL Hgb (12.0-15.0) g/dL Hct (37.2-46.3) % Plt Count (140-440) 10*3/uL ABG pH 7.53 H (7.35-7.45) ABG pCO2 30 L (35-45) mmHg ABG pO2 (83-108) mmHg ABG HCO3 26 H (21-25) mmol/L ABG Total CO2 27 H (19-24) mmol/L ABG O2 Saturation 97.8 H (94-97) % Hemoglobin (11.4-16.0) gm/dL Sodium (137-145) mmol/L Potassium (3.5-5.1) mmol/L BUN (7-17) mg/dL Creatinine (0.52-1.04) mg/dL Glucose (74-99) mg/dL POC Glucose (mg/dL) 162 H 165 H (70-110) mg/dL Calcium (8.4-10.2) mg/dL 01/06/25 01/06/25 01/06/25 Range/Units 04:00 05:00 05:09 WBC 11.59 H (4.50-10.00) 10*3/uL RBC 3.32 L (4.10-5.20) 10*6/uL Hgb 10.5 L (12.0-15.0) g/dL Hct 31.1 L (37.2-46.3) % Plt Count 100 L (140-440) 10*3/uL ABG pH 7.53 H (7.35-7.45) ABG pCO2 31 L (35-45) mmHg ABG pO2 (83-108) mmHg ABG HCO3 26 H (21-25) mmol/L ABG Total CO2 27 H (19-24) mmol/L ABG O2 Saturation 98.1 H (94-97) % Hemoglobin 11.3 L (11.4-16.0) gm/dL Sodium 136 L (137-145) mmol/L Potassium (3.5-5.1) mmol/L BUN 28 H (7-17) mg/dL Creatinine 0.40 L (0.52-1.04) mg/dL Glucose 138 H (74-99) mg/dL POC Glucose (mg/dL) (70-110) mg/dL Calcium 8.2 L (8.4-10.2) mg/dL 01/06/25 Range/Units 05:52 WBC (4.50-10.00) 10*3/uL RBC (4.10-5.20) 10*6/uL Hgb (12.0-15.0) g/dL Hct (37.2-46.3) % Plt Count (140-440) 10*3/uL ABG pH (7.35-7.45) ABG pCO2 (35-45) mmHg ABG pO2 (83-108) mmHg ABG HCO3 (21-25) mmol/L ABG Total CO2 (19-24) mmol/L ABG O2 Saturation (94-97) % Hemoglobin (11.4-16.0) gm/dL Sodium (137-145) mmol/L Potassium (3.5-5.1) mmol/L BUN (7-17) mg/dL Creatinine (0.52-1.04) mg/dL Glucose (74-99) mg/dL POC Glucose (mg/dL) 155 H (70-110) mg/dL Calcium (8.4-10.2) mg/dL Assessment and Plan Plan: Acute hypoxemic respiratory failure, requiring intubation, and mechanical ventilation, and the patient was intubated on 12/29/2024. The patient has a pneumococcal pneumonia involving the left lower lobe. Patient treated with IV Rocephin. Patient was extubated on 01/01/2025 and the patient is currently on 2 L of oxygen by nasal cannula. Subsequently, this afternoon on 01/04/2025, the patient developed an acute hypoxic respiratory failure, treated with BiPAP and remained hypoxic. Subsequently, the patient was moved to the intensive care unit where the patient was intubated on 01/06/2025 and placed on the mechanical ventilator. Bronchoscopy was done and there is no supraglottic or subglottic areas of stenosis. The patient has some postradiation change involving the left vocal cord. Also, the patient was found to have mucous plugs and therapeutic airway suctioning was done and a BAL of the right lower lobe was obtained. Currently on IV Unasyn. Intubated on mechanical ventilator. Left lower lobe pneumococcal pneumonia, currently on IV Unasyn, and the chest x- ray shows stable lower lobe pulmonary consolidations. Severe cardiomyopathy with systolic heart failure and impaired LV function and ejection fraction of 35 to 40% and moderate severe global hypokinesis of the left ventricle, S/P AICD placement and the patient has a biventricular AICD. 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 The most recent CT scan of the chest from 12/16/2024 showed asymmetric soft tissue fullness in the anterior hypopharynx at the level of the vocal cord with similar narrowing of the airway. Dysphagia and failed swallow postextubation. Patient is currently NPO. There is also evidence of oropharyngeal candidiasis Oropharyngeal candidiasis, currently on IV Diflucan Dysphagia and difficulty swallowing plan related to previous radiation therapy to the throat and the patient had a squamous cell carcinoma of the vocal cord treated with chemoradiation therapy. Her dysphagia is chronic. History of gastroesophageal reflux disease. Hypertension. Rheumatoid arthritis. Hypothyroidism. History of sleep apnea syndrome. History of anxiety/depression. Prior history of tobacco use Plan: Patient is currently on propofol for sedation Continue ventilator support and gradual wean down FiO2 as tolerated to maintain saturation above 90% Bronchoscopy was done and the BAL of the right lower lobe was obtained. Mucous plugs were aspirated. OG tube was inserted and the patient will be started on enteral feeding for nutritional support Continue IV Unasyn Continue IV Diflucan Continue bronchodilators Continue IV Solu-Medrol 40 mg every 12 hours. Lactated Ringer at rate of75 cc an hour, may need fluid bolus should the patient develop any hypotension. Monitor respiratory status closely Repeat labs including CBC and complete metabolic profile Triple-lumen catheter has been established. Will continue to follow. Condition is obviously critical, and this evaluation was done and 1 hour and 5 minutes. Discussion was made with the family including the daughter who arrived from out of town. The patient will be kept in the intensive care unit for now. Time with Patient: Greater than 30
--- NOTE | 2025-01-06 14:49 | P.PN ---
Subjective Progress Note Date: 01/05/25 Principal diagnosis: Reason for follow-up is pneumonia Patient is a 69-year-old female with a past medical history significant for hypertension rheumatoid arthritis reflux COPD did have history of AICD anxiety depression, history of throat cancer on chemoradiation initially presented to hospital after repeated have a fall subsequent did have a worsening respiratory status requiring intubation admission in the ICU there was concern for pneumonia sputum with strep pneumo prompted this consultation On today's evaluation that is 01/05/2025, the patient continues to be afebrile, the patient did have slight worsening of her respiratory status requiring transfer to the ICU patient is currently on 15 L high flow nasal oxygen patient is slightly lethargic arousable no vomiting or diarrhea reported by the nursing staff Patient white count is 10.81 Objective - Vital Signs Vital signs: Vital Signs Temp 98.1 F 01/05/25 13:55 Pulse 76 01/05/25 16:18 Resp 18 01/05/25 15:00 BP 112/77 01/05/25 15:00 Pulse Ox 95 01/05/25 15:00 FiO2 100 01/05/25 16:03 Intake & Output 01/04/25 01/05/25 01/05/25 18:59 06:59 18:59 Intake Total 0 Output Total 300 275 Balance -300 -275 Weight 71.5 kg 71 kg 71 kg Intake: Oral 0 Output: Urine 300 275 Other: Voiding Method Indwelling Catheter Indwelling Catheter Indwelling Catheter ABP, PAP, CO, CI - Last Documented Arterial Blood Pressure 132/77 - Exam GENERAL DESCRIPTION: An elderly female lying in bed in no distress RESPIRATORY SYSTEM: Unlabored breathing , decreased breath sounds at bases HEART: S1 S2 regular rate and rhythm , ABDOMEN: Soft , no tenderness EXTREMITIES: No edema feet - Labs CBC & Chem 7: 01/06/25 05:00 01/06/25 04:00 Labs: Abnormal Lab Results - Last 24 Hours (Table) 01/04/25 01/04/25 01/04/25 Range/Units 18:27 19:17 20:34 WBC (4.50-10.00) 10*3/uL RBC (4.10-5.20) 10*6/uL Hct (37.2-46.3) % MCH (27.0-32.0) pg Plt Count (140-440) 10*3/uL Immature Gran # (0.00-0.04) 10*3/uL Neutrophils # (1.80-7.70) 10*3/uL Lymphocytes # (0.90-5.00) 10*3/uL Eosinophils # (0.04-0.35) 10*3/uL ABG pH 7.56 H* (7.35-7.45) ABG pCO2 29 L (35-45) mmHg ABG pO2 61 L (83-108) mmHg ABG HCO3 26 H (21-25) mmol/L ABG Total CO2 27 H (19-24) mmol/L ABG O2 Saturation (94-97) % Sodium (137-145) mmol/L Potassium (3.5-5.1) mmol/L BUN (7-17) mg/dL Creatinine (0.52-1.04) mg/dL Glucose (74-99) mg/dL POC Glucose (mg/dL) 140 H (70-110) mg/dL Calcium (8.4-10.2) mg/dL ALT (4-34) U/L Troponin I 1.140 H* (0.000-0.034) ng/mL Total Protein (6.3-8.2) g/dL Albumin (3.5-5.0) g/dL 01/04/25 01/04/25 01/05/25 Range/Units 23:39 23:47 06:00 WBC 10.81 H (4.50-10.00) 10*3/uL RBC 3.73 L (4.10-5.20) 10*6/uL Hct 34.9 L (37.2-46.3) % MCH 32.2 H (27.0-32.0) pg Plt Count 102 L (140-440) 10*3/uL Immature Gran # 0.55 H (0.00-0.04) 10*3/uL Neutrophils # 9.39 H (1.80-7.70) 10*3/uL Lymphocytes # 0.29 L (0.90-5.00) 10*3/uL Eosinophils # 0.00 L (0.04-0.35) 10*3/uL ABG pH (7.35-7.45) ABG pCO2 (35-45) mmHg ABG pO2 (83-108) mmHg ABG HCO3 (21-25) mmol/L ABG Total CO2 (19-24) mmol/L ABG O2 Saturation (94-97) % Sodium 135 L (137-145) mmol/L Potassium 3.2 L (3.5-5.1) mmol/L BUN 29 H (7-17) mg/dL Creatinine 0.45 L (0.52-1.04) mg/dL Glucose 146 H (74-99) mg/dL POC Glucose (mg/dL) 145 H (70-110) mg/dL Calcium 8.0 L (8.4-10.2) mg/dL ALT 52 H (4-34) U/L Troponin I (0.000-0.034) ng/mL Total Protein 4.8 L (6.3-8.2) g/dL Albumin 2.5 L (3.5-5.0) g/dL 01/05/25 01/05/25 01/05/25 Range/Units 10:07 11:28 11:49 WBC (4.50-10.00) 10*3/uL RBC (4.10-5.20) 10*6/uL Hct (37.2-46.3) % MCH (27.0-32.0) pg Plt Count (140-440) 10*3/uL Immature Gran # (0.00-0.04) 10*3/uL Neutrophils # (1.80-7.70) 10*3/uL Lymphocytes # (0.90-5.00) 10*3/uL Eosinophils # (0.04-0.35) 10*3/uL ABG pH (7.35-7.45) ABG pCO2 (35-45) mmHg ABG pO2 (83-108) mmHg ABG HCO3 (21-25) mmol/L ABG Total CO2 (19-24) mmol/L ABG O2 Saturation (94-97) % Sodium (137-145) mmol/L Potassium 2.9 L 3.1 L (3.5-5.1) mmol/L BUN 27 H (7-17) mg/dL Creatinine 0.49 L (0.52-1.04) mg/dL Glucose 137 H (74-99) mg/dL POC Glucose (mg/dL) 136 H (70-110) mg/dL Calcium 8.0 L (8.4-10.2) mg/dL ALT (4-34) U/L Troponin I (0.000-0.034) ng/mL Total Protein (6.3-8.2) g/dL Albumin (3.5-5.0) g/dL 01/05/25 01/05/25 01/05/25 Range/Units 12:25 12:55 14:39 WBC (4.50-10.00) 10*3/uL RBC (4.10-5.20) 10*6/uL Hct (37.2-46.3) % MCH (27.0-32.0) pg Plt Count (140-440) 10*3/uL Immature Gran # (0.00-0.04) 10*3/uL Neutrophils # (1.80-7.70) 10*3/uL Lymphocytes # (0.90-5.00) 10*3/uL Eosinophils # (0.04-0.35) 10*3/uL ABG pH 7.60 H* 7.57 H* (7.35-7.45) ABG pCO2 26 L 28 L (35-45) mmHg ABG pO2 52 L* 57 L* (83-108) mmHg ABG HCO3 (21-25) mmol/L ABG Total CO2 26 H 26 H (19-24) mmol/L ABG O2 Saturation 91.7 L 92.8 L (94-97) % Sodium (137-145) mmol/L Potassium (3.5-5.1) mmol/L BUN (7-17) mg/dL Creatinine (0.52-1.04) mg/dL Glucose (74-99) mg/dL POC Glucose (mg/dL) 149 H (70-110) mg/dL Calcium (8.4-10.2) mg/dL ALT (4-34) U/L Troponin I (0.000-0.034) ng/mL Total Protein (6.3-8.2) g/dL Albumin (3.5-5.0) g/dL Assessment and Plan (1) Sepsis Current Visit: Yes Status: Acute Code(s): A41.9 - SEPSIS, UNSPECIFIED ORGANISM SNOMED Code(s): 88153397 (2) Streptococcus pneumoniae infection Current Visit: Yes Status: Acute Code(s): A49.1 - STREPTOCOCCAL INFECTION, UNSPECIFIED SITE SNOMED Code(s): 98123623 (3) Pneumonia Current Visit: No Status: Acute Code(s): J18.9 - PNEUMONIA, UNSPECIFIED ORGANISM SNOMED Code(s): 269671200 Plan: 1patient presenting to the hospital with shortness of breath and there was concern for AICD fire subsequently worsening of respiratory status required intubation intubation in the ICU patient do have hypotension requiring pressor support elevated white count meeting currently for SIRS/sepsis source is likely pneumonia with a question of community-acquired versus aspiration pneumonia as the patient did have a history of throat cancer on chemoradiation and there was concern for aspiration the time of intubation sputum is currently showing Streptococcus pneumoniae that has been sensitive to ceftriaxone and Augmentin 2-patient did have worsening of her respiratory status requiring more supplemental oxygen she did have CT angiogram of the chest that was negative for PE she was consulted for changes and mucous plugging 3possible plan for bronchoscopy for now continue with Unasyn white count is tr ending down Dictation was produced using [employer] dictation software. please excuse any grammatical, word or spelling errors. Time with Patient: Less than 30
--- NOTE | 2025-01-06 14:50 | P.PN ---
Subjective Progress Note Date: 01/06/25 Principal diagnosis: Reason for follow-up is pneumonia Patient is a 69-year-old female with a past medical history significant for hypertension rheumatoid arthritis reflux COPD did have history of AICD anxiety depression, history of throat cancer on chemoradiation initially presented to hospital after repeated have a fall subsequent did have a worsening respiratory status requiring intubation admission in the ICU there was concern for pneumonia sputum with strep pneumo prompted this consultation On today's evaluation that is 01/07/2024, patient did have a temperature of 98 F this morning, patient did have worsening of her respiratory status requiring intubation at patient also status post bronchoscopy patient is currently on 100% FiO2 and is requiring low-dose Levophed for pressor support. Patient white count is 11.59 creatinine 0.40 Objective - Vital Signs Vital signs: Vital Signs Temp 97.7 F 01/06/25 12:00 Pulse 90 01/06/25 14:15 Resp 19 01/06/25 14:15 BP 100/71 01/06/25 14:15 Pulse Ox 100 01/06/25 14:15 FiO2 100 01/06/25 13:08 Intake & Output 01/05/25 01/06/25 01/06/25 18:59 06:59 18:59 Intake Total 314.841 8486.116 2528.220 Output Total 190 260 120 Balance 371.673 5961.116 2408.220 Weight 71 kg Intake: IV 352 1136 2374 0.9 40 200 100 Ampicillin-Sulbactam 3 gm 100 In Sodium Chloride 0.9% 100 ml @ 200 mls/hr IVPB Q6HR [facility] Rx#:[id number] Fluconazole in NaCl,Iso- 50 Osm 100 mg In Saline 1 50ml.bag @ 50 mls/hr IVPB DAILY [facility] Rx#:[id number] Lactated Ringers 1,000 ml 300 900 600 @ 75 mls/hr IV .[id number] [facility] Rx#:[id number] Lactated Ringers 1,000 ml 1000 @ 999 mls/hr IV .Q1H1M ONE Rx#:[id number] Magnesium Sulfate-D5w Pmx 100 1 gm In Dextrose/Water 1 100ml.bag @ 100 mls/hr IVPB ONCE ONE Rx#: [id number] Potassium Chloride 10 meq 400 In Water For Injection 1 100ml.bag @ 100 mls/hr IVPB Q1HR [facility] Rx#: [id number] Pressure bag 12 36 24 Intake, IV Titration 25.057 1430.116 154.220 Amount Ampicillin-Sulbactam 3 gm 200 100 In Sodium Chloride 0.9% 100 ml @ 200 mls/hr IVPB Q6HR [facility] Rx#:[id number] Dexmedetomidine/0.9% NaCl 25.057 30.116 (Pmx) 400 mcg In Empty Bag 1 bag @ 0.2 MCG/KG/HR 3.55 mls/hr IV .Q24H [facility] Rx#:[id number] Lactated Ringers 1,000 ml 1000 @ 999 mls/hr IV .Q1H1M ONE Rx#:[id number] Norepinephrine 8 mg In 6.366 Sodium Chloride 0.9% 250 ml @ 0.03 MCG/KG/MIN 4. 122 mls/hr IV .Q24H [facility] Rx#:[id number] Potassium Chloride 10 meq 200 In Water For Injection 1 100ml.bag @ 100 mls/hr IVPB Q1HR [facility] Rx#: [id number] propofoL 1,000 mg In 47.854 Empty Bag 1 bag @ 15 MCG/ KG/MIN 6.39 mls/hr IV . [id number] [facility] Rx#:[id number] Oral 0 Output: Urine 190 260 120 Other: Voiding Method Indwelling Catheter Indwelling Catheter # Bowel Movements 1 ABP, PAP, CO, CI - Last Documented Arterial Blood Pressure 106/57 - Exam GENERAL DESCRIPTION: An elderly female lying in bed in no distress RESPIRATORY SYSTEM: Unlabored breathing , decreased breath sounds at bases HEART: S1 S2 regular rate and rhythm , ABDOMEN: Soft , no tenderness EXTREMITIES: No edema feet - Labs CBC & Chem 7: 01/06/25 05:00 01/06/25 04:00 Labs: Abnormal Lab Results - Last 24 Hours (Table) 01/05/25 01/05/25 01/05/25 Range/Units 17:14 17:17 22:13 WBC (4.50-10.00) 10*3/uL RBC (4.10-5.20) 10*6/uL Hgb (12.0-15.0) g/dL Hct (37.2-46.3) % Plt Count (140-440) 10*3/uL ABG pH 7.53 H (7.35-7.45) ABG pCO2 30 L (35-45) mmHg ABG pO2 (83-108) mmHg ABG HCO3 26 H (21-25) mmol/L ABG Total CO2 27 H (19-24) mmol/L ABG O2 Saturation 97.8 H (94-97) % Hemoglobin (11.4-16.0) gm/dL Sodium (137-145) mmol/L BUN (7-17) mg/dL Creatinine (0.52-1.04) mg/dL Glucose (74-99) mg/dL POC Glucose (mg/dL) 162 H 165 H (70-110) mg/dL Calcium (8.4-10.2) mg/dL 01/06/25 01/06/25 01/06/25 Range/Units 04:00 05:00 05:09 WBC 11.59 H (4.50-10.00) 10*3/uL RBC 3.32 L (4.10-5.20) 10*6/uL Hgb 10.5 L (12.0-15.0) g/dL Hct 31.1 L (37.2-46.3) % Plt Count 100 L (140-440) 10*3/uL ABG pH 7.53 H (7.35-7.45) ABG pCO2 31 L (35-45) mmHg ABG pO2 (83-108) mmHg ABG HCO3 26 H (21-25) mmol/L ABG Total CO2 27 H (19-24) mmol/L ABG O2 Saturation 98.1 H (94-97) % Hemoglobin 11.3 L (11.4-16.0) gm/dL Sodium 136 L (137-145) mmol/L BUN 28 H (7-17) mg/dL Creatinine 0.40 L (0.52-1.04) mg/dL Glucose 138 H (74-99) mg/dL POC Glucose (mg/dL) (70-110) mg/dL Calcium 8.2 L (8.4-10.2) mg/dL 01/06/25 01/06/25 01/06/25 Range/Units 05:52 10:42 11:55 WBC (4.50-10.00) 10*3/uL RBC (4.10-5.20) 10*6/uL Hgb (12.0-15.0) g/dL Hct (37.2-46.3) % Plt Count (140-440) 10*3/uL ABG pH 7.60 H* (7.35-7.45) ABG pCO2 23 L (35-45) mmHg ABG pO2 128 H (83-108) mmHg ABG HCO3 (21-25) mmol/L ABG Total CO2 (19-24) mmol/L ABG O2 Saturation 99.5 H (94-97) % Hemoglobin (11.4-16.0) gm/dL Sodium (137-145) mmol/L BUN (7-17) mg/dL Creatinine (0.52-1.04) mg/dL Glucose (74-99) mg/dL POC Glucose (mg/dL) 155 H 149 H (70-110) mg/dL Calcium (8.4-10.2) mg/dL Assessment and Plan (1) Sepsis Current Visit: Yes Status: Acute Code(s): A41.9 - SEPSIS, UNSPECIFIED ORGANISM SNOMED Code(s): 89239919 (2) Streptococcus pneumoniae infection Current Visit: Yes Status: Acute Code(s): A49.1 - STREPTOCOCCAL INFECTION, UNSPECIFIED SITE SNOMED Code(s): 56227024 (3) Pneumonia Current Visit: No Status: Acute Code(s): J18.9 - PNEUMONIA, UNSPECIFIED ORGANISM SNOMED Code(s): 036594823 Plan: 1patient presenting to the hospital with shortness of breath and there was concern for AICD fire subsequently worsening of respiratory status required intubation intubation in the ICU patient do have hypotension requiring pressor support elevated white count meeting currently for SIRS/sepsis source is likely pneumonia with a question of community-acquired versus aspiration pneumonia as the patient did have a history of throat cancer on chemoradiation and there was concern for aspiration the time of intubation sputum is currently showing Streptococcus pneumoniae that has been sensitive to ceftriaxone and Augmentin 2-patient did have worsening of her respiratory status requiring more supplemental oxygen she did have CT angiogram of the chest that was negative for PE she was consulted for changes and mucous plugging 3patient is status post intubation bronchoscopy and lavage culture have been obtained results will be followed 4for now continue with Unasyn at this antibiotic further on the basis of culture report Family member at the bedside question answered Dictation was produced using [employer] software. please excuse any grammatical, word or spelling errors. Time with Patient: Less than 30
--- NOTE | 2025-01-06 14:52 | P.PCN ---
Date of Procedure: 01/06/25 Preoperative Diagnosis: Acute hypoxic respiratory failure/COPD/pneumonia Postoperative Diagnosis: Same Procedure(s) Performed: Intubation Bronchoscopy and bronchoalveolar lavage Anesthesia: CORRY Surgeon: Tati Benjamin Estimated Blood Loss (ml): 0 Pathology: other Condition: critical Disposition: ICU Operative Findings: Intubation Indication: Respiratory compromise. A time-out was completed verifying correct patient, procedure, site, positioning, and implant(s) or special equipment if applicable. The Glydo scope was used to visualize the vocal cords. No evidence of any supra glottic stenosis. Vocal cords were adequately visualized and the patient had some minimal oropharyngeal candidiasis. The patient was positioned appropriately and a #8 endotracheal tube was placed under direct laryngoscopy. The tube was anchored at 22 cm at the teeth. Correct placement was confirmed by presence of bilateral breath sounds without air sounds in the abdomen on auscultation. An end-tidal CO2 monitor was also used to confirm tracheal placement of the ET tube. A chest x-ray was ordered to assess for pneumothorax and verify endotracheal tube placement. The patient tolerated the procedure well and there were no complications. Bronchoscopy This procedure was done in the intensive care unit. The patient was over the sedated on propofol. The flex bronchoscope was easily passed through the orotracheal tube and the procedure was done and the patient was adequately oxygenated and ventilated. Upon airway examination, there was copious amount of purulent respiratory secretions in the mid and distal trachea and more so in the lower lobes right more than left. Therapeutic airway suctioning was done with approximately 15 cc of mucous plugs aspirated from the patient's airways. Careful inspection was done including the upper trachea, subglottic trachea, bilateral mainstem bronchi, right upper lobe bronchus, bronchus intermedius, right middle lobe and right lower lobe bronchus and the various 10 segments of the right in addition to the left upper lobe bronchus, left lower lobe bronchus, left mainstem bronchus and the base 8 segments on the left. No endobronchial tumors. After achieving airway patency, a bronchial lavage of the right lower lobe was done. A total of 40 cc of fluid was infused and 20 cc was aspirated. This was sent for cultures. No complications, the bronchoscope was removed and the procedure was terminated.
[2025-01-06] MEDS: HYDROmorphone 0.5 MG/0.5 ML SYRINGE IVP PRN (16:41)
[2025-01-06 17:43] LABS: Glucose,Whole Blood 155 mg/dL (70-110)
--- NOTE | 2025-01-07 00:18 | CT ---
EXAMINATION TYPE: CT brain wo con CT DLP: 1758.3 mGycm, Automated exposure control for dose reduction was used. DATE OF EXAM: 01/06/2025 11:20 PM COMPARISON: None. CLINICAL INDICATION:Female, 69 years old with history of AMS, TECHNIQUE: Brain: Multiple axial CT images of the brain were obtained without IV contrast. . Coronal and sagitta l reformats reviewed. FINDINGS: Brain: Extra-axial spaces: No abnormal extra-axial fluid collections. Ventricular system: Within normal limits Cerebral parenchyma: Mild cerebral atrophy. No acute intraparenchymal hemorrhage or mass effect. The jolly-white junction is well differentiated. Scattered hypoattenuating areas are seen within the maryse ventricular white matter. Cerebellum: Unremarkable. Mass effect: No evidence of midline shift. Intracranial vasculature: unremarkable Soft tissues: Normal. Calvarium/osseous structures: No depressed skull fracture. Paranasal sinuses and mastoid air cells: Trace opacification of the left mastoid air cells. Near comp lete opacification of the right mastoid air cells. Mild mucosal thickening of the right sphenoid sinu s. The remaining paranasal sinuses are clear. Visualized orbits: Bilateral aphakia IMPRESSION: 1. No acute intracranial process. 2. Nonspecific minimal white matter changes, likely secondary to chronic small vessel ischemic diseas e. 3. Bilateral mastoid effusions with right greater than left. [facility], , 01/07/2025 12:15 AM
--- NOTE | 2025-01-07 00:44 | CT ---
EXAMINATION TYPE: CT neck chest without con CT DLP: 1758.3 mGycm, Automated exposure control for dose reduction was used. DATE OF EXAM: 01/06/2025 11:17 PM COMPARISON: CTA chest 01/04/2025, 12/16/2024, CT soft tissue neck 12/16/2024, 12/01/2024, 11/13/2024, PET CT 10/19/2024. CLINICAL INDICATION:Female, 69 years old with history of AMS;, head and neck neoplasm TECHNIQUE: Standard CT of the neck and chest. Axial sections with coronal and sagittal reformats wer e obtained. Evaluation is limited due to lack of intravenous contrast. Contrast used:None Oral contrast used: None FINDINGS: BRAIN: Please refer to CT brain of the same day for findings. ORBITS: Please refer to CT brain of the same day for findings. SINUSES: Please refer to CT brain of the same day for findings. SPACES OF THE NECK: The bilateral parotid and submandibular glands are symmetric and unremarkable. Th e nasopharynx is unremarkable. Orogastric and endotracheal tubes identified. Redemonstration of asymm etry with some fullness in the left central anterior region of the hypopharynx again. Previously seen focal narrowing of the distal hypopharynx just above the level of the vocal cords is limited due to placement of endotracheal tube. The retropharyngeal and parapharyngeal spaces are clear. MUSCULOSKELETAL: No acute osseous pathology. Degenerative disc disease at C3-C4. No aggressive osseou s lesion. LYMPH NODES: No enlarged lymph nodes identified. VASCULAR STRUCTURES: Right IJ approach central venous catheter. Bilateral carotid bulb calcifications . THORACIC INLET/AIRWAY: Airway is patent. The lung apices are clear. SOFT TISSUES/THYROID: Thyroid and remainder of the soft tissues are unremarkable. LUNGS/ PLEURA: Increased small right pleural effusion. No pneumothorax. Mild centrilobular emphysemat ous changes. Similar bilateral lower lobe consolidative opacities and atelectasis from prior exam. T here is interval development of air bronchograms within these consolidations from prior exam. Similar patchy groundglass opacity within the periphery of the right upper lobe with additional reticular gr oundglass opacities within the superior segment of the right lower lobe. No new suspicious pulmonary nodule or mass identified. Small calcified granuloma within the right lower lobe. AIRWAY: Patent and unremarkable. Stable position of endotracheal tube with distal tip in the trachea approximately 4.8 cm above the azael. Heart: Cardiomegaly is demonstrated.Trace anterior pericardial effusion redemonstrated. No significan t coronary artery calcifications. Anterior chest wall 3-lead cardiac pacemaking device with leads te rminating in the right atrium, right ventricle and coronary sinus. MEDIASTINUM: No gross evidence of adenopathy. VASCULATURE: No aortic aneurysm. Mild atherosclerotic calcification of the aorta and its branches. R ight IJ approach central venous catheter with distal tip terminating in the low SVC. MUSCULOSKELETAL: No acute osseous abnormalities. Remote healed bilateral rib fractures. No aggressive osseous lesion. Moderate multilevel degenerative disc disease of the lower thoracic spine. SOFT TISSUES/LYMPH NODES: Unremarkable. LOWER NECK: Atrophic thyroid gland redemonstrated. UPPER ABDOMEN: Similar trace perihepatic and perisplenic ascites. Enteric tube courses within the eso phagus terminating in the stomach appropriately. IMPRESSION: 1. Redemonstration of bilateral lower lobe consolidative opacities with now air bronchograms. Findin gs are most consistent with pneumonia/possible aspiration. Additionally there is some scattered groun dglass opacities within the right upper lobe and superior segment of the right lower lobe pneumonitis . 2. Slightly increased small right pleural effusion. 3. Unchanged asymmetric fullness within the left hypopharynx from prior exam related to previously s een malignancy. Residual disease is not excluded. 4. Similar trace perihepatic and perisplenic ascites. 5. Appropriate position of endotracheal and orogastric tubes. Appropriate position of right IJ centr al venous catheter. [facility], , 01/07/2025 12:41 AM
[2025-01-07 00:53] LABS: Glucose,Whole Blood 176 mg/dL (70-110)
[2025-01-07] MEDS: INSULIN LISPRO (HumaLOG) 100 UNIT/ML 10 mL VL SQ SCH (00:56)
[2025-01-07 04:57] LABS: ABG HCO3 25 mmol/L (21-25); ABG PCO2 36 mmHg (35-45); ABG PH 7.44 (7.35-7.45); ABG PO2 75 mmHg (83-108); ABG TCO2 26 mmol/L (19-24)
[2025-01-07 05:03] LABS: Allen Test Performed? no
[2025-01-07 05:04] LABS: Glucose,Whole Blood 181 mg/dL (70-110)
[2025-01-07 05:17] LABS: HCT 29.8 % (37.2-46.3); HGB 10.3 g/dL (12.0-15.0); MCH 32.9 pg (27.0-32.0); MCHC 34.6 g/dL (32.0-37.0); MCV 95.2 fL (80.0-97.0); Platelet Count 111 10*3/uL (140-440); RBC 3.13 10*6/uL (4.10-5.20); RDW 17.4 % (11.5-14.5); WBC 13.49 10*3/uL (4.50-10.00)
[2025-01-07 05:46] LABS: African American GFR (CKD) >90 (>60 ml/min/1.73 sqM); Anion Gap 8 mmol/L; Blood Urea Nitrogen 23 mg/dL (7-17); Calcium 7.9 mg/dL (8.4-10.2); Carbon Dioxide 23 mmol/L (22-30); Chloride 104 mmol/L (98-107); Glucose 165 mg/dL (74-99); Non-African American GFR(CKD) >90 (>60 ml/min/1.73 sqM); Potassium 4.2 mmol/L (3.5-5.1); Sodium 135 mmol/L (137-145)
--- NOTE | 2025-01-07 07:03 | XR ---
EXAMINATION TYPE: XR chest 1V portable DATE OF EXAM: 01/07/2025 5:15 AM COMPARISON: Chest radiographs from 01/06/2025. CLINICAL INDICATION: Female, 69 years old with history of Tube placement; [facility] TECHNIQUE: XR chest 1V portable Frontal view of the chest. FINDINGS: Lungs/Pleura: There is no evidence of pleural effusion, focal consolidation, or pneumothorax. Pulmonary vascularity: Pulmonary vascular congestion. Heart/mediastinum: Cardiomediastinal silhouette is enlarged. Three lead cardiac conduction device ove rlying the left hemithorax with lead tips projecting over the right ventricle, right atrium and coron ian sinus. Musculoskeletal: No acute osseous pathology. Other findings: None Lines/Tubes: Endotracheal tube with distal tip 2.0 Cm above the azael. Nasogastric tube with its distal tip and side-port projecting under the diaphragm. Right internal jugular central venous catheter with distal tip at the cavoatrial junction. IMPRESSION: Cardiomegaly and mild pulmonary vascular congestion. Correlate with BNP for congestive heart failure. [facility], , 01/07/2025 7:01 AM
[2025-01-07 13:18] LABS: Glucose,Whole Blood 178 mg/dL (70-110)
--- NOTE | 2025-01-07 14:09 | PN ---
PROGRESS NOTE DATE OF SERVICE: 01/06/2025 CHIEF COMPLAINT: Aspiration pneumonia and respiratory failure. HISTORY OF PRESENT ILLNESS: This lady is deteriorating. She is on a ventilator and blood pressure is falling. The family is present and has been notified. HER HAS MADE HER DO NOT RESUSCITATE. PHYSICAL EXAMINATION: She is on a ventilator and unresponsive. She remains pale. Breath sounds are heard bilaterally. She is hypotensive. IMPRESSION: 1. Respiratory failure. 2. Aspiration pneumonia. 3. Chronic obstructive pulmonary disease. 4. History of carcinoma of the larynx. PLAN: Provide supportive care and no resuscitation. MMODL / IJN: [id number] /
--- NOTE | 2025-01-07 15:00 | P.PN ---
Subjective Progress Note Date: 01/07/25 Principal diagnosis: Reason for follow-up is pneumonia Patient is a 69-year-old female with a past medical history significant for hypertension rheumatoid arthritis reflux COPD did have history of AICD anxiety depression, history of throat cancer on chemoradiation initially presented to hospital after repeated have a fall subsequent did have a worsening respiratory status requiring intubation admission in the ICU there was concern for pneumonia sputum with strep pneumo prompted this consultation On today's evaluation that is 01/07/2025, Patient is afebrile patient is currently intubated on the vent FiO2 currently at 60% no significant purulent secretion through the Et or any other changes reported by the nursing staff, patient off the pressor support. Patient white count 13.49, creatinine 0.39, BAL cultures are pending Objective - Vital Signs Vital signs: Vital Signs Temp 96.4 F L 01/07/25 08:30 Pulse 66 01/07/25 14:30 Resp 16 01/07/25 14:30 BP 102/58 01/07/25 14:30 Pulse Ox 97 01/07/25 14:30 FiO2 60 01/07/25 14:30 Intake & Output 01/06/25 01/07/25 01/07/25 18:59 06:59 18:59 Intake Total 3129.107 577.638 874.050 Output Total 200 150 150 Balance 2929.107 427.638 724.050 Intake: IV 2844 253 809 0.9 230 220 160 Ampicillin-Sulbactam 3 gm 200 100 In Sodium Chloride 0.9% 100 ml @ 200 mls/hr IVPB Q6HR [facility] Rx#:[id number] Fluconazole in NaCl,Iso- 50 Osm 100 mg In Saline 1 50ml.bag @ 50 mls/hr IVPB DAILY [facility] Rx#:[id number] Lactated Ringers 1,000 ml 825 525 @ 75 mls/hr IV .[id number] [facility] Rx#:[id number] Lactated Ringers 1,000 ml 1000 @ 999 mls/hr IV .Q1H1M ONE Rx#:[id number] Magnesium Sulfate-D5w Pmx 100 1 gm In Dextrose/Water 1 100ml.bag @ 100 mls/hr IVPB ONCE ONE Rx#: [id number] Potassium Chloride 10 meq 400 In Water For Injection 1 100ml.bag @ 100 mls/hr IVPB Q1HR [facility] Rx#: [id number] Pressure bag 39 33 24 Intake, IV Titration 285.107 324.638 65.050 Amount Ampicillin-Sulbactam 3 gm 100 In Sodium Chloride 0.9% 100 ml @ 200 mls/hr IVPB Q6HR [facility] Rx#:[id number] Norepinephrine 8 mg In 37.253 124.954 0.298 Sodium Chloride 0.9% 250 ml @ 0.03 MCG/KG/MIN 4. 122 mls/hr IV .Q24H [facility] Rx#:[id number] propofoL 1,000 mg In 147.854 199.684 64.752 Empty Bag 1 bag @ 15 MCG/ KG/MIN 6.39 mls/hr IV . [id number] [facility] Rx#:[id number] Output: Urine 200 150 150 Other: Voiding Method Indwelling Catheter Indwelling Catheter Indwelling Catheter # Bowel Movements 1 ABP, PAP, CO, CI - Last Documented Arterial Blood Pressure 101/50 - Exam GENERAL DESCRIPTION: An elderly female lying in bed in no distress RESPIRATORY SYSTEM: Unlabored breathing , decreased breath sounds at bases HEART: S1 S2 regular rate and rhythm , ABDOMEN: Soft , no tenderness EXTREMITIES: No edema feet - Labs CBC & Chem 7: 01/07/25 05:00 01/07/25 05:00 Labs: Abnormal Lab Results - Last 24 Hours (Table) 01/06/25 01/07/25 01/07/25 Range/Units 17:42 00:51 04:47 WBC (4.50-10.00) 10*3/uL RBC (4.10-5.20) 10*6/uL Hgb (12.0-15.0) g/dL Hct (37.2-46.3) % MCH (27.0-32.0) pg Plt Count (140-440) 10*3/uL ABG pO2 75 L (83-108) mmHg ABG Total CO2 26 H (19-24) mmol/L Sodium (137-145) mmol/L BUN (7-17) mg/dL Creatinine (0.52-1.04) mg/dL Glucose (74-99) mg/dL POC Glucose (mg/dL) 155 H 176 H (70-110) mg/dL Calcium (8.4-10.2) mg/dL 01/07/25 01/07/25 01/07/25 Range/Units 05:00 05:00 05:02 WBC 13.49 H (4.50-10.00) 10*3/uL RBC 3.13 L (4.10-5.20) 10*6/uL Hgb 10.3 L (12.0-15.0) g/dL Hct 29.8 L (37.2-46.3) % MCH 32.9 H (27.0-32.0) pg Plt Count 111 L (140-440) 10*3/uL ABG pO2 (83-108) mmHg ABG Total CO2 (19-24) mmol/L Sodium 135 L (137-145) mmol/L BUN 23 H (7-17) mg/dL Creatinine 0.39 L (0.52-1.04) mg/dL Glucose 165 H (74-99) mg/dL POC Glucose (mg/dL) 181 H (70-110) mg/dL Calcium 7.9 L (8.4-10.2) mg/dL 01/07/25 Range/Units 13:17 WBC (4.50-10.00) 10*3/uL RBC (4.10-5.20) 10*6/uL Hgb (12.0-15.0) g/dL Hct (37.2-46.3) % MCH (27.0-32.0) pg Plt Count (140-440) 10*3/uL ABG pO2 (83-108) mmHg ABG Total CO2 (19-24) mmol/L Sodium (137-145) mmol/L BUN (7-17) mg/dL Creatinine (0.52-1.04) mg/dL Glucose (74-99) mg/dL POC Glucose (mg/dL) 178 H (70-110) mg/dL Calcium (8.4-10.2) mg/dL Assessment and Plan (1) Sepsis Current Visit: Yes Status: Acute Code(s): A41.9 - SEPSIS, UNSPECIFIED ORGANISM SNOMED Code(s): 69312001 (2) Streptococcus pneumoniae infection Current Visit: Yes Status: Acute Code(s): A49.1 - STREPTOCOCCAL INFECTION, UNSPECIFIED SITE SNOMED Code(s): 51926209 (3) Pneumonia Current Visit: No Status: Acute Code(s): J18.9 - PNEUMONIA, UNSPECIFIED ORGANISM SNOMED Code(s): 595643024 Plan: 1patient presenting to the hospital with shortness of breath and there was concern for AICD fire subsequently worsening of respiratory status required intubation intubation in the ICU patient do have hypotension requiring pressor support elevated white count meeting currently for SIRS/sepsis source is likely pneumonia with a question of community-acquired versus aspiration pneumonia as the patient did have a history of throat cancer on chemoradiation and there was concern for aspiration the time of intubation sputum is currently showing Streptococcus pneumoniae that has been sensitive to ceftriaxone and Augmentin 2-patient did have worsening of her respiratory status requiring more supplemental oxygen she did have CT angiogram of the chest that was negative for PE she was consulted for changes and mucous plugging 3patient is status post intubation bronchoscopy and lavage culture are currently pending 4patient is afebrile white count slightly up today need to be monitored closely continue nursing while waiting for the BAL culture to finalize Dictation was produced using [employer] dictation software. please excuse any grammatical, word or spelling errors. Time with Patient: Less than 30
--- NOTE | 2025-01-07 16:06 | P.PN ---
Subjective Progress Note Date: 01/07/25 69-year-old female who looks much older than her stated age, who apparently comes into the emergency department, December 25, brought in by EMS, because apparently she was found down on the floor. She apparently was going to the bathroom, and fell, but did not hurt herself. She believes her defibrillator, went off, but she was not sure. She is not sure if she lost consciousness according to the [facility]. She apparently denied any chest pain, or difficulty breathing in the emergency department. Apparently, the patient was evaluated by cardiology, and, apparently there was an issue with the defibrillator. Anyway, the patient was all set to be discharged, but apparently last night, and then today, the patient developed some increasing shortness of breath, and, saturations are quite low, and the patient required more more oxygen, to the point where she was on Airvo. We were asked to see the patient because of her respiratory decline. Chest x-ray appears to show possible minimal infiltrate at the right lung base, she may have aspirated. She apparently has a history of throat cancer, undergoing both chemo and radiation therapy. The status of that is not known. In addition, according to the chart, she has a history of COPD, acid reflux disease, hypertension, rheumatoid arthritis, sleep apnea, hypothyroidism, among other things. She has had a heart catheterization, pacemaker, and AICD placement. We attempted to talk to the family about CODE STATUS. They were not sure of her CODE STATUS although in the chart, apparently she was not to be intubated. The was unsure. The daughter could not be reached. A blood gas was done, showing a PO2 of 39, PCO2 of 31, and a pH of 7 .55. The patient was transferred to the intensive care unit. The blood gas was done on 100% oxygen. White count was 13.2, hemoglobin 15.7, hematocrit 43.1, and platelet count 189,000. Sodium was 127, potassium 4.7, chlorides 90, CO2 23, anion gap 14, BUN 39, creatinine 0.91. Glucose was 143. N-terminal proBNP was 1580. TSH was quite high at 15.1. Home medications included levothyroxine, which the patient may or may not be taking. Chest x-ray from earlier, shows a possible minimal infiltrate, right lower lobe. Apparently the patient has been evaluated by speech pathology. Progress note dated December 30, 2024. 69-year-old female who looks much older than her stated age. We saw her ye sterday in consultation. Patient developed respiratory failure, presumably secondary to aspiration. Patient is currently on the ventilator. She is on volume assist-control, rate 14, tidal volume 450, FiO2 80%, PEEP of 10. Blood gases on 100% show pO2 of 119, pCO2 of 45, pH of 7.35. Art line and central line were placed yesterday. She is on propofol at 40 mcg/kg/min, norepinephrine at 2.8 mcg/min, and saline at 10 cc an hour. She is getting vital high-protein at 10 cc an hour. She continues on azithromycin and Rocephin for aspiration pneumonia. White count of 15.3, hemoglobin 13.9, hematocrit 39.4, platelet count 161,000. Sodium 129, potassium 3.7, chloride 94, CO2 25, BUN 38, creat inine 0.98. Glucose is 186. Calcium 8.2. Chest x-ray shows a small right- sided pleural effusion, and some minimal infiltrate, at the right lung base. Progress note dated December 31, 2024. 69-year-old female seen today in room 262. She remains on volume assist- control, rate 14, tidal volume 450, FiO2 60%, PEEP of 10. Gases on 80% show pO2 of 137, PCO2 of 40, pH of 7.49. She is getting propofol at 40 mcg/kg/min, saline at 15 cc an hour, and vital high-protein at 10 cc, with a goal of 38. The patient is currently on azithromycin and Rocephin. Vancomycin is discontinued. Sputum was positive for Streptococcus pneumoniae. White count 13.6, hemoglobin 12.8, hematocrit 35.7, platelet count 137,000. Sodium 128, potassium 4, chloride 90, CO2 29, BUN 32, creatinine 0.76. Glucose 147. Calc ium 8.1. Chest x-ray continues to show bibasilar infiltrates or atelectasis. On 01/01/2025, the patient is being seen for a follow-up. This morning, the patient has been weaned off the sedation and the patient is arousable and the patient is making good eye contact and following simple commands and answering questions. The patient is on assist-control mode of mechanical ventilation at rate of 14, tidal volume of 450, FiO2 of 50% and a PEEP of 10. The blood gas showed a pH of 7.55 with a [id number] and PO284. The chest x-ray from today shows COPD with some mild patchy atelectatic changes in the left lung base. Hemodynamically stable. White cell count of 13.9, hemothirteen 0.2 and a platelet count of 143. Sodium is at 130 with a potassium level of 3.8, bicarbonate 32, BUN 28 with a creatinine of 0.6. The patient had a sputum sample that was positive for Streptococcus pneumonia and the patient remains on IV Rocephin. The patient remains on bronchodilators and the patient is currentl y on DuoNeb nebulized treatments [id number]. A bedside cuff leak test was done and the patient has adequate air movement around the ET tube and the patient is currently intubated with a #7 orotracheal tube and this intubation was done due to concerns of her previous history of throat cancer. Tube feeds are currently on hold, possible extubation today based on her progress. On 01/02/2025, the patient is being seen for a follow-up. The patient has been weaned off the mechanical ventilator and the patient was extubated and the patient is currently on 2 L of oxygen by nasal cannula. The patient is having some difficulty in swallowing. The cough is weak. No significant respiratory distress. She failed a bedside swallow and the patient will have an official swallow evaluation. Meanwhile, the patient has been kept NPO. She remains on the lactated Ringer at rate of 75 cc an hour. She was also noted to have oropharyngeal candidiasis. She is awake and alert and communicating. The chest x-ray from this morning shows COPD with slightly worsening patchy retrocardiac atelectasis. The patient's WBC count is 11.2 with a hemoglobin of 11.7 and a platelet count of 102. BUN is 23 with a creatinine 0.6. Sodium level is 134 and a potassium level is at 3.5. The patient remains on IV Rocephin 2 g every 24 hours as the patient sputum sample was positive for strep pneumo. The pat ient remains on DuoNeb treatments [id number]. The patient is on Coreg 6.25 mg p.o. twice a day, Synthroid 88 mcg p.o. daily, and Lipitor 80 mg p.o. daily. She is also on aspirin. There is generalized profound weakness in all 4 extremities. Nevertheless, the patient is able to move all 4 extremities and she is following simple commands. Coffee mechanism remains weak. 01/03/2025, the patient is being seen for a follow-up. The patient was transferred out of the intensive care unit postextubation the patient is currently on 2 L of oxygen by nasal cannula. She continues to have some limited congested cough. No significant sputum production. No signs of any significant respiratory distress. She remains profoundly weak and debilitated. She is also having difficulty in swallowing and speech pathology has been involved in the care of the patient is going to undergo a modified barium swallow. The patient also had oropharyngeal candidiasis and the patient is currently taking IV Diflucan. She remains on IV Rocephin regarding a pneumococcal pneumonia with secondary COPD exacerbation. Most recent chest x-ray from 01/02/2025 shows COPD and patchy left lower lobe pulmonary infiltrates/atelectasis/consolidation. The white second 11.2 with a hemoglobin 12.1 and platelet count of 105. Sodium level is at 133, BUN 28 with a creatinine of 0.4. Bicarb is at 21. Glucose is 157. On 01/04/2025, the patient had a coughing COPD. Noted this patient is post ventilator dependent respiratory failure and a pneumococcal pneumonia. The patient remains on IV Rocephin. Episode and following that the patient started having hypoxemia. The patient was brought up from 2 L up to 15 L of nasal cannula. Based on that, further workup was initiated. The patient was given a blood gas that showed acute respiratory alkalosis with a pH of 7.55 and a PCO2 of 29 and PO2 of 33. Subsequently, the patient was placed on 13 L and her current pulse ox is 93%. CT of the chest was also done and the patient had no evidence of any pulmonary embolism. The patient had no filling defects. There was bilateral lower lobe opacities/atelectasis. There is additional few peripheral right upper lobe and lingular groundglass opacities that are minimal and there is also mucous plugging and a trace right-sided pleural effusion. There is also background COPD. Noted the patient is post ventilator dependent respiratory failure and the patient was extubated on 01/02/2025. The patient continued to have dysphagia following her extubation patient is currently NPO. No reported aspiration per nursing staff. Her antibiotic coverage has been switched to IV Unasyn and Rocephin has been discontinued. Remains on bronchodilators. Remains on IV Solu-Medrol. The white cell count from yesterday was 11.2. No labs are available from today. Obviously, her labs need to be repeated. Family is at the bedside. She is arousable and awake although she is quite weak and she seems to be quite debilitated. On 01/05/2025, the patient is being seen for a follow-up. The patient was initially seen on the medical floor and the patient was on 100% of the bed facemask and oxygen nasal cannula at 15 L. Pulse ox was 91%. The patient was lethargic, confused, and sluggishly responsive to verbal or painful stimulation. Noted, the patient was quite hypoxic. Most recent blood gas from this morning showed a pH of 7.6 with a PCO2 of 26 and PO2 of 52 on 100% nonrebreather facemask and oxygen high flow at 15 L. A follow-up chest x-ray was also done that showed small right-sided pleural effusion/atelectasis. Patchy retrocardiac opacity was again present. CT of the chest was also completed yesterday the patient has no evidence of any pulmonary embolism. There is evidence of bilateral lower lobe consolidation and atelectasis and possibly some mucous plugging. Trace right-sided pleural effusion was also noted. The patient was started on IV Unasyn accordingly. Based on ongoing hypoxemia and diminished level of consciousness, the patient was transferred to the intensive care unit. The patient was started on BiPAP. While being on a BiPAP of 12/5 with an FiO2 of 100%, repeat blood gas was done and the patient demonstrated a pH of 7.57 with a pCO2 28 and PO2 of 57. The patient had some difficulty in tolerating the BiPAP and the patient will be started on Precedex to maintain secondary to the BiPAP machine. The patient was given a triple-lumen catheter in the intensive care unit and this was inserted in the right IJ without any complications. No evidence of any pneumothorax post line insertion. Hemodynamically, remained stable. No significant hypotension. The patient was started on lactated Ringer at rate of 75 cc an hour. Antibiotic coverage remains IV Unasyn and Diflucan. Remains on bronchodilators. Remains on IV Solu-Medrol. Currently off diuretics. Remains n.p.o. as the patient had difficulty swallowing post extubation. On 01/06/2025, the patient is being seen in the intensive care unit. Extremely lethargic, weak, difficult to arouse, remains on a BiPAP with borderline oxygenation. The patient has been kept on a BiPAP at a pressure of 10 over 5 cm of water and FiO2 of 80%. The blood gas showed some improvement in oxygenation and the morning blood gas showed a pH of 7.33 with a pCO2 of 31 and pO2 of 89. The patient continues to moan and c occasionally cries for help. She states that she is unable to breathe. The exact cause for her underlying hypoxemia is not clear. Suspect mucous plugs. Noted I reviewed the chest x-ray from this morning and the patient has no clear airspace disease or consolidation. There is some right lower lobe airspace opacity. Otherwise, no significant abnormalities to explain the patient's hypoxemia. The same time, his CT of the chest was done on 01/04/2025 showed bilateral lower lobe consolidation and atelectasis. There was also a few peripheral right upper lobe and lingular groundglass opacities. Findings were trivial and there was no evidence of any pulmonary embolism. A trace right-sided pleural effusion was noted. Based on her critical and borderline respiratory status, I decided to go ahead and [facility] the patient. I performed intubation the Glydo scope. I examined the upper airway structures and the vocal cords seem to be quite patent and open and there was no significant supraglottic narrowing of concern. The patient was intubated by #8 orotracheal tube via the glide scope. Following that, I performed a bronchoscopy and the patient did have some purulent mucous plugs in the lower lobes bilaterally, right more than left and total amount of purulent respiratory secretions were suctioned out was in order 50 cc. Meanwhile, the patient was kept on a mechanical ventilator. Currently, the patient is in assist-control mode at rate of 40, tidal volume of 450, FiO2 100% with a PEEP of 5. Blood gas showed a pH of 7.6 with a PCO2 of 23 and PO2 of 128. Postintubation chest x-ray shows no acute cardiopulmonary process. ET tube with distal tip 3.5 cm above the azael. NG tube was also in good location. Morning blood work showed a WBC count of 11.5, hemoglobin 10.7 and platelet count of 100. Sodium is at 136, potassium is at 3.5, BUN 28 and creatinine 0.4. Blood sugar is at 149. The patient is currently on IV Unasyn as a broad-spectrum antibiotics as the patient had a pneumococcal pneumonia at time of admission. The patient remains on DuoNeb nebulizer treatments [id number], IV Solu-Medrol, 40 mg every 12 hours. Patient is also on Diflucan for oropharyngeal candidiasis. Remains on Coreg, Lipitor and aspirin. On 01/07/2025, the patient is being seen for a follow-up. The patient remains intubated on a mechanical ventilator. On today's evaluation, the patient is sedated on propofol which is running at 60 mcg/kg/min. The patient remains also on assist-control mode rate of 14, tidal volume of 400, FiO2 of 70% with a PEEP of 5. The blood gas showed a pH of 7.44 with a ABF068 and PO2 of 75. Chest x- ray findings are essentially unchanged and the patient continues to have some left basilar consolidation. Earlier CAT scan of the chest also showed bibasilar atelectasis and consolidations. The patient had positive sputum sample for strep pneumo. However, a bronchoscopy with therapeutic airway suctioning and mucous plug removal was done yesterday and another bronchoalveolar lavage of the right lower lobe was done. Results are still pending for now. Antibiotic coverage remains unchanged and the patient remains on IV Unasyn. The patient remains on lactated Ringer at rate of 75 cc an hour. Cardiac rhythm is sinus bradycardia. Fluid balance is +3.3 L over the past 24 hours and the patient will be started on enteral feeding for nutritional support. The labs from today showed a WBC count of 13.4, hemoglobin of 10.3 and a platelet count of 111. Sodium is at 135, potassium is at 4.2, BUN is 23 with a creatinine of 0.39. Serum bicarb is at 23. No other significant events overnight on this patient. The Coreg will be placed on hold as the patient is having some bradycardia. Remains on aspirin. Remains on Lipitor. Remains on Diflucan for oropharyngeal candidiasis. Objective - Vital Signs Vital signs: Vital Signs Temp 96.4 F L 01/07/25 08:30 Pulse 58 L 01/07/25 09:05 Resp 14 01/07/25 09:00 BP 86/34 01/07/25 09:00 Pulse Ox 100 01/07/25 09:00 FiO2 70 01/07/25 08:43 Intake & Output 01/06/25 01/07/25 01/07/25 18:59 06:59 18:59 Intake Total 3129.107 577.638 146.298 Output Total 200 150 30 Balance 2929.107 427.638 116.298 Intake: IV 2844 253 146 0.9 230 220 40 Ampicillin-Sulbactam 3 gm 200 100 In Sodium Chloride 0.9% 100 ml @ 200 mls/hr IVPB Q6HR [facility] Rx#:[id number] Fluconazole in NaCl,Iso- 50 Osm 100 mg In Saline 1 50ml.bag @ 50 mls/hr IVPB DAILY [facility] Rx#:[id number] Lactated Ringers 1,000 ml 825 @ 75 mls/hr IV .[id number] [facility] Rx#:[id number] Lactated Ringers 1,000 ml 1000 @ 999 mls/hr IV .Q1H1M [facility] Rx#:[id number] Magnesium Sulfate-D5w Pmx 100 1 gm In Dextrose/Water 1 100ml.bag @ 100 mls/hr IVPB ONCE [facility] Rx#: [id number] Potassium Chloride 10 meq 400 In Water For Injection 1 100ml.bag @ 100 mls/hr IVPB Q1HR [facility] Rx#: [id number] Pressure bag 39 33 6 Intake, IV Titration 285.107 324.638 0.298 Amount Ampicillin-Sulbactam 3 gm 100 In Sodium Chloride 0.9% 100 ml @ 200 mls/hr IVPB Q6HR [facility] Rx#:[id number] Norepinephrine 8 mg In 37.253 124.954 0.298 Sodium Chloride 0.9% 250 ml @ 0.03 MCG/KG/MIN 4. 122 mls/hr IV .Q24H [facility] Rx#:[id number] propofoL 1,000 mg In 147.854 199.684 Empty Bag 1 bag @ 15 MCG/ KG/MIN 6.39 mls/hr IV . [id number] [facility] Rx#:[id number] Output: Urine 200 150 30 Other: Voiding Method Indwelling Catheter Indwelling Catheter # Bowel Movements 1 ABP, PAP, CO, CI - Last Documented Arterial Blood Pressure 95/50 - Exam Sedated on propofol, currently intubated on mechanical ventilator. Orogastric and orotracheal tube are both in place. Calm and comfortable. HEENT examination is grossly unremarkable. No stridor noted on physical examination. The patient has a left subclavian triple-lumen catheter. Neck supple. Full range of motion. No adenopathy thyromegaly or neck vein distention. Cardiovascular examination reveals regular rhythm rate. S1-S2 normal. No S3 or S4. No discernible murmur noted. Heart sounds are distant. Lungs reveal scattered bilateral rhonchi. No wheezes or crackles. Breath sounds equal. No breath sounds are equal and symmetrical and there is no significant wheezing at this point. Abdomen soft bowel sounds are heard. No masses or tenderness. Extremities are intact. No cyanosis clubbing or edema. Skin is without rash or lesion. Neurologic examination is nonfocal and the patient is currently adequately s edated. - Labs CBC & Chem 7: 01/07/25 05:00 01/07/25 05:00 Labs: Abnormal Lab Results - Last 24 Hours (Table) 01/06/25 01/06/25 01/06/25 Range/Units 10:42 11:55 17:42 WBC (4.50-10.00) 10*3/uL RBC (4.10-5.20) 10*6/uL Hgb (12.0-15.0) g/dL Hct (37.2-46.3) % MCH (27.0-32.0) pg Plt Count (140-440) 10*3/uL ABG pH 7.60 H* (7.35-7.45) ABG pCO2 23 L (35-45) mmHg ABG pO2 128 H (83-108) mmHg ABG Total CO2 (19-24) mmol/L ABG O2 Saturation 99.5 H (94-97) % Sodium (137-145) mmol/L BUN (7-17) mg/dL Creatinine (0.52-1.04) mg/dL Glucose (74-99) mg/dL POC Glucose (mg/dL) 149 H 155 H (70-110) mg/dL Calcium (8.4-10.2) mg/dL 01/07/25 01/07/25 01/07/25 Range/Units 00:51 04:47 05:00 WBC 13.49 H (4.50-10.00) 10*3/uL RBC 3.13 L (4.10-5.20) 10*6/uL Hgb 10.3 L (12.0-15.0) g/dL Hct 29.8 L (37.2-46.3) % MCH 32.9 H (27.0-32.0) pg Plt Count 111 L (140-440) 10*3/uL ABG pH (7.35-7.45) ABG pCO2 (35-45) mmHg ABG pO2 75 L (83-108) mmHg ABG Total CO2 26 H (19-24) mmol/L ABG O2 Saturation (94-97) % Sodium (137-145) mmol/L BUN (7-17) mg/dL Creatinine (0.52-1.04) mg/dL Glucose (74-99) mg/dL POC Glucose (mg/dL) 176 H (70-110) mg/dL Calcium (8.4-10.2) mg/dL 01/07/25 01/07/25 Range/Units 05:00 05:02 WBC (4.50-10.00) 10*3/uL RBC (4.10-5.20) 10*6/uL Hgb (12.0-15.0) g/dL Hct (37.2-46.3) % MCH (27.0-32.0) pg Plt Count (140-440) 10*3/uL ABG pH (7.35-7.45) ABG pCO2 (35-45) mmHg ABG pO2 (83-108) mmHg ABG Total CO2 (19-24) mmol/L ABG O2 Saturation (94-97) % Sodium 135 L (137-145) mmol/L BUN 23 H (7-17) mg/dL Creatinine 0.39 L (0.52-1.04) mg/dL Glucose 165 H (74-99) mg/dL POC Glucose (mg/dL) 181 H (70-110) mg/dL Calcium 7.9 L (8.4-10.2) mg/dL Assessment and Plan Plan: Acute hypoxemic respiratory failure, requiring intubation, and mechanical ventilation, and the patient was intubated on 12/29/2024. The patient has a pneumococcal pneumonia involving the left lower lobe. Patient treated with IV Rocephin. Patient was extubated on 01/01/2025 and the patient is currently on 2 L of oxygen by nasal cannula. Subsequently, this afternoon on 01/04/2025, the patient developed an acute hypoxic respiratory failure, treated with BiPAP and r emained hypoxic. Subsequently, the patient was moved to the intensive care unit where the patient was intubated on 01/06/2025 and placed on the mechanical ventilator. Bronchoscopy was done and there is no supraglottic or subglottic areas of stenosis. The patient has some postradiation change involving the left vocal cord. Also, the patient was found to have mucous plugs and therapeutic airway suctioning was done and a BAL of the right lower lobe was obtained. Currently on IV Unasyn. Intubated on mechanical ventilator. The patient continues to be hypoxic at 70% FiO2 with a PEEP of 5. Necessary ventilator changes will be done. Chest x-ray findings remain stable. Left lower lobe pneumococcal pneumonia, currently on IV Unasyn, and the chest x- ray shows stable lower lobe pulmonary consolidations. Severe cardiomyopathy with systolic heart failure and impaired LV function and ejection fraction of 35 to 40% and moderate severe global hypokinesis of the left ventricle, S/P AICD placement and the patient has a biventricular AICD. 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 The most recent CT scan of the chest from 12/16/2024 showed asymmetric soft tissue fullness in the anterior hypopharynx at the level of the vocal cord with similar narrowing of the airway. Dysphagia and failed swallow postextubation. There is also evidence of o ropharyngeal candidiasis, and the patient is currently intubated and the patient has a orogastric tube in place. Oropharyngeal candidiasis, currently on IV Diflucan Dysphagia and difficulty swallowing plan related to previous radiation therapy to the throat and the patient had a squamous cell carcinoma of the vocal cord treated with chemoradiation therapy. Her dysphagia is chronic. History of gastroesophageal reflux disease. Hypertension. Rheumatoid arthritis. Hypothyroidism. History of sleep apnea syndrome. History of anxiety/depression. Prior history of tobacco use Plan: Patient is currently on propofol for sedation, continue sedation. Continue ventilator support and gradual wean down FiO2 as tolerated to maintain saturation above 90%, increase the PEEP up to 8 and drop the FiO2 accordingly. Bronchoscopy was done and the BAL of the right lower lobe was obtained. Mucous plugs were aspirated. Awaiting the results of the bronchoalveolar lavage. Continues to be on IV Unasyn. OG tube was inserted and the patient will be started on enteral feeding for nutritional support Continue IV Unasyn Continue IV Diflucan Continue bronchodilators Continue IV Solu-Medrol 40 mg every 12 hours. Lactated Ringer at rate of 75 cc an hour, may need fluid bolus should the patient develop any hypotension. Monitor respiratory status closely Repeat labs including CBC and complete metabolic profile Triple-lumen catheter has been established. Initiate enteral feeding for nutritional support. Will continue to follow. Condition is obviously critical, Discussion was made with the family including the daughter who arrived from out of town. The patient will be kept in the intensive care unit for now. This evaluation was done and 35 minutes. Time with Patient: Greater than 30
[2025-01-07 17:31] LABS: Glucose,Whole Blood 119 mg/dL (70-110)
[2025-01-07 23:16] LABS: Glucose,Whole Blood 161 mg/dL (70-110)
--- NOTE | 2025-01-07 23:29 | PN ---
PROGRESS NOTE DATE OF SERVICE: 01/07/2025 CHIEF COMPLAINT: Respiratory failure and aspiration pneumonia. HISTORY OF PRESENT ILLNESS: This lady remains on the ventilator. She is making almost no urine at this time. PHYSICAL EXAMINATION: GENERAL: She is now hypotensive. CARDIAC: Sinus. ABDOMEN: Soft. IMPRESSION: 1. Acute respiratory failure. 2. Congestive heart failure. 3. Aspiration pneumonia. 4. History of carcinoma of the larynx. PLAN: Continue supportive care. She is not to be resuscitated, however. MMODL / IJN: [id number] /
[2025-01-08 05:09] LABS: Glucose,Whole Blood 168 mg/dL (70-110)
[2025-01-08 05:38] LABS: ABG HCO3 26 mmol/L (21-25); ABG PCO2 37 mmHg (35-45); ABG PH 7.46 (7.35-7.45); ABG PO2 110 mmHg (83-108); ABG TCO2 27 mmol/L (19-24); Allen Test Performed? Yes
--- NOTE | 2025-01-08 07:02 | XR ---
EXAMINATION TYPE: XR chest 1V portable DATE OF EXAM: 01/08/2025 5:48 AM COMPARISON: Chest radiographs from 01/07/2025. CLINICAL INDICATION: Female, 69 years old with history of Tube placement; [facility] TECHNIQUE: XR chest 1V portable Frontal view of the chest. FINDINGS: Lungs/Pleura: There is no evidence of pleural effusion, focal consolidation, or pneumothorax. Pulmonary vascularity: Pulmonary vascular congestion. Heart/mediastinum: Cardiomediastinal silhouette is enlarged. Three lead cardiac conduction device ove rlying the left hemithorax with lead tips projecting over the right ventricle, right atrium and coron ian sinus. Musculoskeletal: No acute osseous pathology. Other findings: None Lines/Tubes: Endotracheal tube with distal tip 3.7 cm above the azael. Nasogastric tube with its distal tip and side-port projecting under the diaphragm. Right internal jugular central venous catheter with distal tip at the cavoatrial junction. IMPRESSION: Similar, Cardiomegaly and mild pulmonary vascular congestion. Correlate with BNP for congestive heart failure. [facility], , 01/08/2025 7:00 AM
[2025-01-08 07:52] LABS: HCT 29.5 % (37.2-46.3); HGB 10.1 g/dL (12.0-15.0); MCH 32.6 pg (27.0-32.0); MCHC 34.2 g/dL (32.0-37.0); MCV 95.2 fL (80.0-97.0); Platelet Count 112 10*3/uL (140-440); RBC 3.10 10*6/uL (4.10-5.20); RDW 18.1 % (11.5-14.5); WBC 11.57 10*3/uL (4.50-10.00)
[2025-01-08 08:15] LABS: ALT 32 U/L (4-34); AST 20 U/L (14-36); African American GFR (CKD) >90 (>60 ml/min/1.73 sqM); Albumin 2.2 g/dL (3.5-5.0); Alkaline Phosphatase 58 U/L (38-126); Anion Gap 5 mmol/L; Blood Urea Nitrogen 20 mg/dL (7-17); Calcium 7.6 mg/dL (8.4-10.2); Carbon Dioxide 24 mmol/L (22-30); Chloride 106 mmol/L (98-107); Glucose 167 mg/dL (74-99); Non-African American GFR(CKD) >90 (>60 ml/min/1.73 sqM); Potassium 4.0 mmol/L (3.5-5.1); Sodium 135 mmol/L (137-145); Total Protein 4.3 g/dL (6.3-8.2)
[2025-01-08 08:49] LABS: Lymphocytes # (M) 0.35 k/uL (1.0-4.8); Monocytes # (M) 0.23 k/uL (0-1.0); Neutrophils # (M) 10.99 k/uL (1.3-7.7); Neutrophils % (M) 94 %; Total Cells Counted 100
[2025-01-08 08:50] LABS: Anisocytosis (M) Present
[2025-01-08 11:37] LABS: Glucose,Whole Blood 177 mg/dL (70-110)
--- NOTE | 2025-01-08 13:41 | P.PN ---
Subjective Progress Note Date: 01/08/25 Principal diagnosis: Acute hypoxic respiratory failure secondary to pneumococcal pneumonia involving left lower lobe 69-year-old female who looks much older than her stated age, who apparently comes into the emergency department, December 25, brought in by EMS, because apparently she was found down on the floor. She apparently was going to the bathroom, and fell, but did not hurt herself. She believes her defibrillator, went off, but she was not sure. She is not sure if she lost consciousness according to the ER ventura. She apparently denied any chest pain, or difficulty breathing in the emergency department. Apparently, the patient was evaluated by cardiology, and, apparently there was an issue with the defibrillator. Anyway, the patient was all set to be discharged, but apparently last night, and then today, the patient developed some increasing shortness of breath, and, saturations are quite low, and the patient required more more oxygen, to the point where she was on Airvo. We were asked to see the patient because of her respiratory decline. Chest x-ray appears to show possible minimal infiltrate at the right lung base, she may have aspirated. She apparently has a history of throat cancer, undergoing both chemo and radiation therapy. The status of that is not known. In addition, according to the chart, she has a history of COPD, acid reflux disease, hypertension, rheumatoid arthritis, sleep apnea, hypothyroidism, among other things. She has had a heart catheterization, pacemaker, and AICD placement. We attempted to talk to the family about CODE STATUS. They were not sure of her CODE STATUS although in the chart, apparently she was not to be intubated. The was unsure. The daughter could not be reached. A blood gas was done, showing a PO2 of 39, PCO2 of 31, and a pH of 7.55. The patient was transferred to the intensive care unit. The blood gas was done on 100% oxygen. White count was 13.2, hemoglobin 15.7, hematocrit 43. 1, and platelet count 189,000. Sodium was 127, potassium 4.7, chlorides 90, CO2 23, anion gap 14, BUN 39, creatinine 0.91. Glucose was 143. N-terminal proBNP was 1580. TSH was quite high at 15.1. Home medications included levothyroxine, which the patient may or may not be taking. Chest x-ray from earlier, shows a possible minimal infiltrate, right lower lobe. Apparently the patient has been evaluated by speech pathology. Progress note dated December 30, 2024. 69-year-old female who looks much older than her stated age. We saw her yesterday in consultation. Patient developed respiratory failure, presumably secondary to aspiration. Patient is currently on the ventilator. She is on vol ume assist-control, rate 14, tidal volume 450, FiO2 80%, PEEP of 10. Blood gases on 100% show pO2 of 119, pCO2 of 45, pH of 7.35. Art line and central line were placed yesterday. She is on propofol at 40 mcg/kg/min, norepinephrine at 2.8 mcg/min, and saline at 10 cc an hour. She is getting vital high-protein at 10 cc an hour. She continues on azithromycin and Rocephin for aspiration pneumonia. White count of 15.3, hemoglobin 13.9, hematocrit 39.4, platelet count 161,000. Sodium 129, potassium 3.7, chloride 94, CO2 25, BUN 38, creatinine 0.98. Glucose is 186. Calcium 8.2. Chest x-ray shows a small right-sided pleural effusion, and some minimal infiltrate, at the right lung base. Progress note dated December 31, 2024. 69-year-old female seen today in room 262. She remains on volume assist- control, rate 14, tidal volume 450, FiO2 60%, PEEP of 10. Gases on 80% show pO2 of 137, PCO2 of 40, pH of 7.49. She is getting propofol at 40 mcg/kg/min, saline at 15 cc an hour, and vital high-protein at 10 cc, with a goal of 38. The patient is currently on azithromycin and Rocephin. Vancomycin is discontinued. Sputum was positive for Streptococcus pneumoniae. White count 13.6, hemoglobin 12.8, hematocrit 35.7, platelet count 137,000. Sodium 128, potassium 4, chloride 90, CO2 29, BUN 32, creatinine 0.76. Glucose 147. Calcium 8.1. Chest x-ray continues to show bibasilar infiltrates or atelectasis. On 01/01/2025, the patient is being seen for a follow-up. This morning, the p atient has been weaned off the sedation and the patient is arousable and the patient is making good eye contact and following simple commands and answering questions. The patient is on assist-control mode of mechanical ventilation at rate of 14, tidal volume of 450, FiO2 of 50% and a PEEP of 10. The blood gas showed a pH of 7.55 with a WWE235 and PO284. The chest x-ray from today shows COPD with some mild patchy atelectatic changes in the left lung base. Hemodynamically stable. White cell count of 13.9, hemothirteen 0.2 and a platelet count of 143. Sodium is at 130 with a potassium level of 3.8, bicarbonate 32, BUN 28 with a creatinine of 0.6. The patient had a sputum sample that was positive for Streptococcus pneumonia and the patient remains on IV Rocephin. The patient remains on bronchodilators and the patient is currently on DuoNeb nebulized treatments [id number]. A bedside cuff leak test was done and the patient has adequate air movement around the ET tube and the patient is currently intubated with a #7 orotracheal tube and this intubation was done due to concerns of her previous history of throat cancer. Tube feeds are currently on hold, possible extubation today based on her progress. On 01/02/2025, the patient is being seen for a follow-up. The patient has been weaned off the mechanical ventilator and the patient was extubated and the patient is currently on 2 L of oxygen by nasal cannula. The patient is having some difficulty in swallowing. The cough is weak. No significant respiratory distress. She failed a bedside swallow and the patient will have an official swallow evaluation. Meanwhile, the patient has been kept NPO. She remains on the lactated Ringer at rate of 75 cc an hour. She was also noted to have oropharyngeal candidiasis. She is awake and alert and communicating. The chest x-ray from this morning shows COPD with slightly worsening patchy retrocardiac atelectasis. The patient's WBC count is 11.2 with a hemoglobin of 11.7 and a platelet count of 102. BUN is 23 with a creatinine 0.6. Sodium level is 134 and a potassium level is at 3.5. The patient remains on IV Rocephin 2 g every 24 hours as the patient sputum sample was positive for strep pneumo. The patient remains on DuoNeb treatments [id number]. The patient is on Coreg 6.25 mg p.o. twice a day, Synthroid 88 mcg p.o. daily, and Lipitor 80 mg p.o. d aily. She is also on aspirin. There is generalized profound weakness in all 4 extremities. Nevertheless, the patient is able to move all 4 extremities and she is following simple commands. Coffee mechanism remains weak. 01/03/2025, the patient is being seen for a follow-up. The patient was pandya sferred out of the intensive care unit postextubation the patient is currently on 2 L of oxygen by nasal cannula. She continues to have some limited congested cough. No significant sputum production. No signs of any significant respiratory distress. She remains profoundly weak and debilitated. She is also having difficulty in swallowing and speech pathology has been involved in the care of the patient is going to undergo a modified barium swallow. The patient also had oropharyngeal candidiasis and the patient is currently taking IV Diflucan. She remains on IV Rocephin regarding a pneumococcal pneumonia with secondary COPD exacerbation. Most recent chest x-ray from 01/02/2025 shows COPD and patchy left lower lobe pulmonary infiltrates/atelectasis/consolidation. The white second 11.2 with a hemoglobin 12.1 and platelet count of 105. Sodium level is at 133, BUN 28 with a creatinine of 0.4. Bicarb is at 21. Glucose is 157. On 01/04/2025, the patient had a coughing COPD. Noted this patient is post ventilator dependent respiratory failure and a pneumococcal pneumonia. The noelle ent remains on IV Rocephin. Episode and following that the patient started having hypoxemia. The patient was brought up from 2 L up to 15 L of nasal cannula. Based on that, further workup was initiated. The patient was given a blood gas that showed acute respiratory alkalosis with a pH of 7.55 and a PCO2 of 29 and PO2 of 33. Subsequently, the patient was placed on 13 L and her current pulse ox is 93%. CT of the chest was also done and the patient had no evidence of any pulmonary embolism. The patient had no filling defects. There was bilateral lower lobe opacities/atelectasis. There is additional few peripheral right upper lobe and lingular groundglass opacities that are minimal and there is also mucous plugging and a trace right-sided pleural effusion. There is also background COPD. Noted the patient is post ventilator dependent respiratory failure and the patient was extubated on 01/02/2025. The patient continued to have dysphagia following her extubation patient is currently NPO. No reported aspiration per nursing staff. Her antibiotic coverage has been switched to IV Unasyn and Rocephin has been discontinued. Remains on bronchodilators. Remains on IV Solu-Medrol. The white cell count from yesterday was 11.2. No labs are available from today. Obviously, her labs need to be repeated. Family is at the bedside. She is arousable and awake although she is quite weak and she seems to be quite debilitated. On 01/05/2025, the patient is being seen for a follow-up. The patient was initially seen on the medical floor and the patient was on 100% of the bed face mask and oxygen nasal cannula at 15 L. Pulse ox was 91%. The patient was lethargic, confused, and sluggishly responsive to verbal or painful stimulation. Noted, the patient was quite hypoxic. Most recent blood gas from this morning showed a pH of 7.6 with a PCO2 of 26 and PO2 of 52 on 100% nonrebreather facemask and oxygen high flow at 15 L. A follow-up chest x-ray was also done that showed small right-sided pleural effusion/atelectasis. Patchy retrocardiac opacity was again present. CT of the chest was also completed yesterday the patient has no evidence of any pulmonary embolism. There is evidence of bilateral lower lobe consolidation and atelectasis and possibly some mucous plugging. Trace right-sided pleural effusion was also noted. The patient was started on IV Unasyn accordingly. Based on ongoing hypoxemia and diminished level of consciousness, the patient was transferred to the intensive care unit. The patient was started on BiPAP. While being on a BiPAP of 12/5 with an FiO2 of 100%, repeat blood gas was done and the patient demonstrated a pH of 7.57 with a pCO2 28 and PO2 of 57. The patient had some difficulty in tolerating the BiPAP and the patient will be started on Precedex to maintain secondary to the BiPAP machine. The patient was given a triple-lumen catheter in the intensive care unit and this was inserted in the right IJ without any complications. No evidence of any pneumothorax post line insertion. Hemodynamically, remained stable. No significant hypotension. The patient was started on lactated Ringer at rate of 75 cc an hour. Antibiotic coverage remains IV Unasyn and Diflucan. Remains on bronchodilators. Remains on IV Solu-Medrol. Currently off diuretics. Remains n.p.o. as the patient had difficulty swallowing post extubation. On 01/06/2025, the patient is being seen in the intensive care unit. Extremely lethargic, weak, difficult to arouse, remains on a BiPAP with borderline oxygenation. The patient has been kept on a BiPAP at a pressure of 10 over 5 cm of water and FiO2 of 80%. The blood gas showed some improvement in oxygenation and the morning blood gas showed a pH of 7.33 with a pCO2 of 31 and pO2 of 89. The patient continues to moan and c occasionally cries for help. She states that she is unable to breathe. The exact cause for her underlying hypoxemia is not clear. Suspect mucous plugs. Noted I reviewed the chest x-ray from this morning and the patient has no clear airspace disease or consolidation. There is some right lower lobe airspace opacity. Otherwise, no significant abnormalities to explain the patient's hypoxemia. The same time, his CT of the chest was done on 01/04/2025 showed bilateral lower lobe consolidation and atelectasis. There was also a few peripheral right upper lobe and lingular groundglass opacities. Findings were trivial and there was no evidence of any pulmonary embolism. A trace right-sided pleural effusion was noted. Based on her critical and borderline respiratory status, I decided to go ahead and intubate the patient. I performed intubation the Glydo scope. I examined the upper airway structures and the vocal cords seem to be quite patent and open and there was no significant supraglottic narrowing of concern. The patient was intubated by #8 orotracheal tube via the glide scope. Following that, I performed a bronchoscopy and the patient did have some purulent mucous plugs in the lower lobes bilaterally, right more than left and total amount of purulent respiratory secretions were suctioned out was in order 50 cc. Meanwhile, the patient was kept on a mechanical ventilator. Currently, the patient is in assist-control mode at rate of 40, tidal volume of 450, FiO2 100% with a PEEP of 5. Blood gas showed a pH of 7.6 with a PCO2 of 23 and PO2 of 128. Postintubation chest x-ray shows no acute cardiopulmonary process. ET tube with distal tip 3.5 cm above the azael. NG tube was also in good location. Morning blood work showed a WBC count of 11.5, hemoglobin 10.7 and platelet count of 100. Sodium is at 136, potassium is at 3.5, BUN 28 and creatinine 0.4. Blood sugar is at 149. The patient is currently on IV Unasyn as a broad-spectrum antibiotics as the patient had a pneumococcal pneumonia at time of admission. The patient remains on DuoNeb nebulizer treatments [id number], IV Solu- Medrol, 40 mg every 12 hours. Patient is also on Diflucan for oropharyngeal candidiasis. Remains on Coreg, Lipitor and aspirin. On 01/07/2025, the patient is being seen for a follow-up. The patient remains intubated on a mechanical ventilator. On today's evaluation, the patient is sedated on propofol which is running at 60 mcg/kg/min. The patient remains also on assist-control mode rate of 14, tidal volume of 400, FiO2 of 70% with a PEEP of 5. The blood gas showed a pH of 7.44 with a [id number] and PO2 of 75. Chest x- ray findings are essentially unchanged and the patient continues to have some left basilar consolidation. Earlier CAT scan of the chest also showed bibasilar atelectasis and consolidations. The patient had positive sputum sample for strep pneumo. However, a bronchoscopy with therapeutic airway suctioning and mucous plug removal was done yesterday and another bronchoalveolar lavage of the right lower lobe was done. Results are still pending for now. Antibiotic coverage remains unchanged and the patient remains on IV Unasyn. The patient remains on lactated Ringer at rate of 75 cc an hour. Cardiac rhythm is sinus bradycardia. Fluid balance is +3.3 L over the past 24 hours and the patient will be started on enteral feeding for nutritional support. The labs from today showed a WBC count of 13.4, hemoglobin of 10.3 and a platelet count of 111. Sodium is at 135, potassium is at 4.2, BUN is 23 with a creatinine of 0.39. Serum bicarb is at 23. No other significant events overnight on this patient. The Coreg will be placed on hold as the patient is having some bradycardia. Remains on aspirin. Remains on Lipitor. Remains on Diflucan for oropharyngeal candidiasis. Seen today on 01/08/2025, patient remains in the ICU, intubated and mechanically ventilated, on assist-control rate of 14 tidal volume 400 FiO2 50% and PEEP of 8 patient is still requiring pressors norepinephrine at 0.08 mcg/kg/min, she is also on LR 75 cc/h propofol 60 mcg/kg/min vital HP at 10 cc/h. Remains on antibiotics for her streptococcal pneumonia/Unasyn. Patient is also on Diflucan for oropharyngeal candidiasis. Apparently the patient was extubated on 01/01, reintubated on 01/06 CODE STATUS has been changed to DNR CODE STATUS, however the issue of comfort care was not discussed or at least the family is undecided regarding her overall condition. Patient is sedated, chest x-ray was reviewed and it showed cardiomegaly, mild pulmonary vascular congestion, and right lower lobe consolidation/pneumonia. Labs reviewed WBC count is 11.5 hemoglobin 10.1 electrolytes are normal, renal profile is normal blood sugar is 167. Objective - Vital Signs Vital signs: Vital Signs Temp 97.5 F L 01/08/25 08:00 Pulse 68 01/08/25 12:31 Resp 13 01/08/25 11:00 BP 104/61 01/08/25 11:00 Pulse Ox 99 01/08/25 11:00 FiO2 50 01/08/25 12:02 Intake & Output 01/07/25 01/08/25 01/08/25 18:59 06:59 18:59 Intake Total 9552.746 5970.165 432.459 Output Total 210 160 95 Balance 3106.724 3666.165 337.459 Weight 81.8 kg Intake: IV 1451 1284 277 0.9 240 170 40 Ampicillin-Sulbactam 3 gm 300 100 In Sodium Chloride 0.9% 100 ml @ 200 mls/hr IVPB Q6HR [facility] Rx#:[id number] Fluconazole in NaCl,Iso- 50 Osm 100 mg In Saline 1 50ml.bag @ 50 mls/hr IVPB DAILY [facility] Rx#:[id number] Lactated Ringers 1,000 ml 825 975 225 @ 75 mls/hr IV .[id number] [facility] Rx#:[id number] Pressure bag 36 39 12 Intake, IV Titration 225.226 379.165 125.459 Amount Norepinephrine 8 mg In 0.298 79.165 2.061 Sodium Chloride 0.9% 250 ml @ 0.03 MCG/KG/MIN 4. 122 mls/hr IV .Q24H [facility] Rx#:[id number] propofoL 1,000 mg In 224.928 300 123.398 Empty Bag 1 bag @ 15 MCG/ KG/MIN 6.39 mls/hr IV . [id number] [facility] Rx#:[id number] Tube Feeding 60 130 30 Output: Urine 210 160 95 Other: Voiding Method Indwelling Catheter Indwelling Catheter Indwelling Catheter ABP, PAP, CO, CI - Last Documented Arterial Blood Pressure 111/55 - Exam Physical exam revealed a 69-year-old female in no distress intubated mechanically ventilated Head: Atraumatic normocephalic HEENT: PERRLA EOMI, nonicteric no neck masses no JVD Chest crackles at the bases no rhonchi no wheezes Cardiac distant S1-S2, no S3 gallop, no murmur Abdomen soft nontender no megaly no rebound no guarding Extremities no clubbing edema or cyanosis Skin: No rashes Neurologic: Sedated, could not assess on propofol Psychiatric: Could not assess sedated and on propofol. - Labs CBC & Chem 7: 01/08/25 05:30 01/08/25 05:30 Labs: Abnormal Lab Results - Last 24 Hours (Table) 01/07/25 01/07/25 01/08/25 Range/Units 17:29 23:15 05:08 WBC (4.50-10.00) 10*3/uL RBC (4.10-5.20) 10*6/uL Hgb (12.0-15.0) g/dL Hct (37.2-46.3) % MCH (27.0-32.0) pg Plt Count (140-440) 10*3/uL Immature Gran # (0.00-0.04) 10*3/uL Neutrophils # (Manual) (1.3-7.7) k/uL Lymphocytes # (Manual) (1.0-4.8) k/uL ABG pH (7.35-7.45) ABG pO2 (83-108) mmHg ABG HCO3 (21-25) mmol/L ABG Total CO2 (19-24) mmol/L ABG O2 Saturation (94-97) % Sodium (137-145) mmol/L BUN (7-17) mg/dL Creatinine (0.52-1.04) mg/dL Glucose (74-99) mg/dL POC Glucose (mg/dL) 119 H 161 H 168 H (70-110) mg/dL Calcium (8.4-10.2) mg/dL Total Protein (6.3-8.2) g/dL Albumin (3.5-5.0) g/dL 01/08/25 01/08/25 01/08/25 Range/Units 05:30 05:30 05:31 WBC 11.57 H (4.50-10.00) 10*3/uL RBC 3.10 L (4.10-5.20) 10*6/uL Hgb 10.1 L (12.0-15.0) g/dL Hct 29.5 L (37.2-46.3) % MCH 32.6 H (27.0-32.0) pg Plt Count 112 L (140-440) 10*3/uL Immature Gran # 0.67 H (0.00-0.04) 10*3/uL Neutrophils # (Manual) 10.99 H (1.3-7.7) k/uL Lymphocytes # (Manual) 0.35 L (1.0-4.8) k/uL ABG pH 7.46 H (7.35-7.45) ABG pO2 110 H (83-108) mmHg ABG HCO3 26 H (21-25) mmol/L ABG Total CO2 27 H (19-24) mmol/L ABG O2 Saturation 99.3 H (94-97) % Sodium 135 L (137-145) mmol/L BUN 20 H (7-17) mg/dL Creatinine 0.41 L (0.52-1.04) mg/dL Glucose 167 H (74-99) mg/dL POC Glucose (mg/dL) (70-110) mg/dL Calcium 7.6 L (8.4-10.2) mg/dL Total Protein 4.3 L (6.3-8.2) g/dL Albumin 2.2 L (3.5-5.0) g/dL 01/08/25 Range/Units 11:35 WBC (4.50-10.00) 10*3/uL RBC (4.10-5.20) 10*6/uL Hgb (12.0-15.0) g/dL Hct (37.2-46.3) % MCH (27.0-32.0) pg Plt Count (140-440) 10*3/uL Immature Gran # (0.00-0.04) 10*3/uL Neutrophils # (Manual) (1.3-7.7) k/uL Lymphocytes # (Manual) (1.0-4.8) k/uL ABG pH (7.35-7.45) ABG pO2 (83-108) mmHg ABG HCO3 (21-25) mmol/L ABG Total CO2 (19-24) mmol/L ABG O2 Saturation (94-97) % Sodium (137-145) mmol/L BUN (7-17) mg/dL Creatinine (0.52-1.04) mg/dL Glucose (74-99) mg/dL POC Glucose (mg/dL) 177 H (70-110) mg/dL Calcium (8.4-10.2) mg/dL Total Protein (6.3-8.2) g/dL Albumin (3.5-5.0) g/dL Microbiology - Last 24 Hours (Table) 01/06/25 10:10 Gram Stain - Preliminary Bronchoalviolar Lavage - Left Bronchial Washings Culture - Preliminary Assessment and Plan Assessment: Impression: Acute hypoxic respiratory failure secondary to pneumococcal pneumonia and severe cardiomyopathy with acute on chronic systolic congestive heart failure and underlying COPD. 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 Chronic dysphagia and failed swallow postextubation Oropharyngeal candidiasis History of GERD Rheumatoid arthritis Benign essential hypertension Obstructive sleep apnea syndrome Generalized anxiety disorder and depression Ex-smoker Recommendation: Continue ventilatory support Continue antibiotics Continue diuretics Continue Diflucan Daily sedation holidays and assessment of mental status Will have to discuss with family the issue of reintubation or no reintubation if the patient is extubated and fails weaning prior to extubating the patient Continue statins Continue aspirin Continue GI DVT prophylaxis Hemodynamic support remains on norepinephrine at 0.08 mcg/kg/min Continue nutritional support Patient remains critically ill Critical care time is 35 minutes Prognosis is extremely poor and guarded Time with Patient: Greater than 30
[2025-01-08 17:43] LABS: Glucose,Whole Blood 173 mg/dL (70-110)
[2025-01-08 23:31] LABS: Glucose,Whole Blood 199 mg/dL (70-110)
[2025-01-09 04:43] LABS: ABG HCO3 28 mmol/L (21-25); ABG PCO2 34 mmHg (35-45); ABG PH 7.51 (7.35-7.45); ABG PO2 93 mmHg (83-108); ABG TCO2 29 mmol/L (19-24); Allen Test Performed? Yes
[2025-01-09 05:19] LABS: HCT 30.2 % (37.2-46.3); HGB 10.1 g/dL (12.0-15.0); MCH 31.7 pg (27.0-32.0); MCHC 33.4 g/dL (32.0-37.0); MCV 94.7 fL (80.0-97.0); Platelet Count 123 10*3/uL (140-440); RBC 3.19 10*6/uL (4.10-5.20); RDW 18.4 % (11.5-14.5); WBC 13.31 10*3/uL (4.50-10.00)
[2025-01-09 05:32] LABS: African American GFR (CKD) >90 (>60 ml/min/1.73 sqM); Anion Gap 5 mmol/L; Blood Urea Nitrogen 18 mg/dL (7-17); Calcium 7.9 mg/dL (8.4-10.2); Carbon Dioxide 27 mmol/L (22-30); Chloride 102 mmol/L (98-107); Glucose 170 mg/dL (74-99); Magnesium 1.8 mg/dL (1.6-2.3); Non-African American GFR(CKD) >90 (>60 ml/min/1.73 sqM); Potassium 3.9 mmol/L (3.5-5.1); Sodium 134 mmol/L (137-145)
[2025-01-09] MEDS ORDERED: Magnesium Replacement Protocol 1 EACH MISC MISCELLANE PRN (05:41)
[2025-01-09] MEDS: MAGNESIUM SULFATE-D5W PMX 1 GM in DEXTROSE/WATER 1 100ML.BAG IVPB ONE (06:00)
[2025-01-09 06:04] LABS: Glucose,Whole Blood 176 mg/dL (70-110)
--- NOTE | 2025-01-09 06:30 | XR ---
EXAMINATION TYPE: XR chest 1V portable DATE OF EXAM: 01/09/2025 5:24 AM COMPARISON: Chest radiographs from 01/08/2025. CLINICAL INDICATION: Female, 69 years old with history of Tube placement; [facility] TECHNIQUE: XR chest 1V portable Frontal view of the chest. FINDINGS: Lungs/Pleura: There is no evidence of pleural effusion, focal consolidation, or pneumothorax. Pulmonary vascularity: Pulmonary vascular congestion. Heart/mediastinum: Cardiomediastinal silhouette is enlarged. Three lead cardiac conduction device ove rlying the left hemithorax with lead tips projecting over the right ventricle, right atrium and coron ian sinus. Musculoskeletal: No acute osseous pathology. Other findings: None Lines/Tubes: Endotracheal tube with distal tip 3.4 cm above the azael. Nasogastric tube with its distal tip and side-port projecting under the diaphragm. Right internal jugular central venous catheter with distal tip at the cavoatrial junction. IMPRESSION: Similar, Cardiomegaly and mild pulmonary vascular congestion. Correlate with BNP for congestive heart failure. [facility], , 01/09/2025 6:28 AM
[2025-01-09 07:41] LABS: Lymphocytes # (M) 0.13 k/uL (1.0-4.8); Monocytes # (M) 0.27 k/uL (0-1.0); Neutrophils # (M) 12.91 k/uL (1.3-7.7); Neutrophils % (M) 87 %; Total Cells Counted 100
--- NOTE | 2025-01-09 09:39 | PN ---
PROGRESS NOTE CHIEF COMPLAINT: Respiratory failure and aspiration pneumonia. HISTORY OF PRESENT ILLNESS: This lady is still on the ventilator. She is making some urine. She is still not to be resuscitated. PHYSICAL EXAM: GENERAL: She is pale. LUNGS: Breath sounds are heard bilaterally. CARDIAC: Normal. ABDOMEN: Soft. IMPRESSION: 1. Aspiration pneumonia. 2. Sepsis. 3. Acute respiratory failure. PLAN: Continue with current management and she is a DNR. MMODL / IJN: [id number] /
--- NOTE | 2025-01-09 09:56 | P.PN ---
Subjective Progress Note Date: 01/08/25 Principal diagnosis: Reason for follow-up is pneumonia Patient is a 69-year-old female with a past medical history significant for hypertension rheumatoid arthritis reflux COPD did have history of AICD anxiety depression, history of throat cancer on chemoradiation initially presented to hospital after repeated have a fall subsequent did have a worsening respiratory status requiring intubation admission in the ICU there was concern for pneumonia sputum with strep pneumo prompted this consultation On today's evaluation that is 01/08/2025, patient has been afebrile, patient remains to be intubated on the vent FiO2 is currently stable at 50%, patient is hemodynamic stable no diarrhea and the change reported by the nursing staff. Patient white count is down to 11.57 creatinine 0.41 bronchial washing cultures currently pending Objective - Vital Signs Vital signs: Vital Signs Temp 97.7 F 01/08/25 12:00 Pulse 70 01/08/25 16:10 Resp 13 01/08/25 13:45 BP 100/67 01/08/25 13:45 Pulse Ox 99 01/08/25 13:45 FiO2 50 01/08/25 15:46 Intake & Output 01/07/25 01/08/25 01/08/25 18:59 06:59 18:59 Intake Total 1670.579 5788.165 1315.904 Output Total 210 160 184 Balance 5625.769 2356.165 1131.904 Weight 81.8 kg 81.8 kg Intake: IV 1451 1284 754 0.9 240 170 80 Ampicillin-Sulbactam 3 gm 300 100 In Sodium Chloride 0.9% 100 ml @ 200 mls/hr IVPB Q6HR [facility] Rx#:[id number] Fluconazole in NaCl,Iso- 50 50 Osm 100 mg In Saline 1 50ml.bag @ 50 mls/hr IVPB DAILY [facility] Rx#:[id number] Lactated Ringers 1,000 ml 825 975 600 @ 75 mls/hr IV .[id number] [facility] Rx#:[id number] Pressure bag 36 39 24 Intake, IV Titration 225.226 379.165 381.904 Amount Ampicillin-Sulbactam 3 gm 200 In Sodium Chloride 0.9% 100 ml @ 200 mls/hr IVPB Q6HR [facility] Rx#:[id number] Norepinephrine 8 mg In 0.298 79.165 2.061 Sodium Chloride 0.9% 250 ml @ 0.03 MCG/KG/MIN 4. 122 mls/hr IV .Q24H [facility] Rx#:[id number] propofoL 1,000 mg In 224.928 300 179.843 Empty Bag 1 bag @ 15 MCG/ KG/MIN 6.39 mls/hr IV . [id number] [facility] Rx#:[id number] Tube Feeding 60 130 90 Other 90 Output: Urine 210 160 184 Other: Voiding Method Indwelling Catheter Indwelling Catheter Indwelling Catheter ABP, PAP, CO, CI - Last Documented Arterial Blood Pressure 118/59 - Exam GENERAL DESCRIPTION: An elderly female lying in bed in no distress RESPIRATORY SYSTEM: Unlabored breathing , decreased breath sounds at bases HEART: S1 S2 regular rate and rhythm , ABDOMEN: Soft , no tenderness EXTREMITIES: No edema feet - Labs CBC & Chem 7: 01/09/25 04:40 01/09/25 04:40 Labs: Abnormal Lab Results - Last 24 Hours (Table) 01/07/25 01/07/25 01/08/25 Range/Units 17:29 23:15 05:08 WBC (4.50-10.00) 10*3/uL RBC (4.10-5.20) 10*6/uL Hgb (12.0-15.0) g/dL Hct (37.2-46.3) % MCH (27.0-32.0) pg Plt Count (140-440) 10*3/uL Immature Gran # (0.00-0.04) 10*3/uL Neutrophils # (Manual) (1.3-7.7) k/uL Lymphocytes # (Manual) (1.0-4.8) k/uL ABG pH (7.35-7.45) ABG pO2 (83-108) mmHg ABG HCO3 (21-25) mmol/L ABG Total CO2 (19-24) mmol/L ABG O2 Saturation (94-97) % Sodium (137-145) mmol/L BUN (7-17) mg/dL Creatinine (0.52-1.04) mg/dL Glucose (74-99) mg/dL POC Glucose (mg/dL) 119 H 161 H 168 H (70-110) mg/dL Calcium (8.4-10.2) mg/dL Total Protein (6.3-8.2) g/dL Albumin (3.5-5.0) g/dL 01/08/25 01/08/25 01/08/25 Range/Units 05:30 05:30 05:31 WBC 11.57 H (4.50-10.00) 10*3/uL RBC 3.10 L (4.10-5.20) 10*6/uL Hgb 10.1 L (12.0-15.0) g/dL Hct 29.5 L (37.2-46.3) % MCH 32.6 H (27.0-32.0) pg Plt Count 112 L (140-440) 10*3/uL Immature Gran # 0.67 H (0.00-0.04) 10*3/uL Neutrophils # (Manual) 10.99 H (1.3-7.7) k/uL Lymphocytes # (Manual) 0.35 L (1.0-4.8) k/uL ABG pH 7.46 H (7.35-7.45) ABG pO2 110 H (83-108) mmHg ABG HCO3 26 H (21-25) mmol/L ABG Total CO2 27 H (19-24) mmol/L ABG O2 Saturation 99.3 H (94-97) % Sodium 135 L (137-145) mmol/L BUN 20 H (7-17) mg/dL Creatinine 0.41 L (0.52-1.04) mg/dL Glucose 167 H (74-99) mg/dL POC Glucose (mg/dL) (70-110) mg/dL Calcium 7.6 L (8.4-10.2) mg/dL Total Protein 4.3 L (6.3-8.2) g/dL Albumin 2.2 L (3.5-5.0) g/dL 01/08/25 Range/Units 11:35 WBC (4.50-10.00) 10*3/uL RBC (4.10-5.20) 10*6/uL Hgb (12.0-15.0) g/dL Hct (37.2-46.3) % MCH (27.0-32.0) pg Plt Count (140-440) 10*3/uL Immature Gran # (0.00-0.04) 10*3/uL Neutrophils # (Manual) (1.3-7.7) k/uL Lymphocytes # (Manual) (1.0-4.8) k/uL ABG pH (7.35-7.45) ABG pO2 (83-108) mmHg ABG HCO3 (21-25) mmol/L ABG Total CO2 (19-24) mmol/L ABG O2 Saturation (94-97) % Sodium (137-145) mmol/L BUN (7-17) mg/dL Creatinine (0.52-1.04) mg/dL Glucose (74-99) mg/dL POC Glucose (mg/dL) 177 H (70-110) mg/dL Calcium (8.4-10.2) mg/dL Total Protein (6.3-8.2) g/dL Albumin (3.5-5.0) g/dL Microbiology - Last 24 Hours (Table) 01/06/25 10:10 Gram Stain - Preliminary Bronchoalviolar Lavage - Left Bronchial Washings Culture - Preliminary Assessment and Plan (1) Sepsis Current Visit: Yes Status: Acute Code(s): A41.9 - SEPSIS, UNSPECIFIED ORGANISM SNOMED Code(s): 63863521 (2) Streptococcus pneumoniae infection Current Visit: Yes Status: Acute Code(s): A49.1 - STREPTOCOCCAL INFECTION, UNSPECIFIED SITE SNOMED Code(s): 50164087 (3) Pneumonia Current Visit: No Status: Acute Code(s): J18.9 - PNEUMONIA, UNSPECIFIED ORGANISM SNOMED Code(s): 993909172 Plan: 1patient presenting to the hospital with shortness of breath and there was concern for AICD fire subsequently worsening of respiratory status required intubation intubation in the ICU patient do have hypotension requiring pressor support elevated white count meeting currently for SIRS/sepsis source is likely pneumonia with a question of community-acquired versus aspiration pneumonia as the patient did have a history of throat cancer on chemoradiation and there was concern for aspiration the time of intubation sputum is currently showing Streptococcus pneumoniae that has been sensitive to ceftriaxone and Augmentin 2-patient did have worsening of her respiratory status requiring more supplemental oxygen she did have CT angiogram of the chest that was negative for PE she was consulted for changes and mucous plugging 3patient is status post intubation bronchoscopy and lavage culture are currently pending 4patient is afebrile white coun trending down for now continue with Unasyn while waiting for the bronchial culture to be finalized Dictation was produced using [employer] dictation software. please excuse any grammatical, word or spelling errors. Time with Patient: Less than 30
[2025-01-09 11:49] LABS: Glucose,Whole Blood 202 mg/dL (70-110)
--- NOTE | 2025-01-09 13:26 | P.PN ---
Subjective Progress Note Date: 01/09/25 Principal diagnosis: Acute hypoxic respiratory failure secondary to pneumococcal pneumonia involving left lower lobe 69-year-old female who looks much older than her stated age, who apparently comes into the emergency department, December 25, brought in by EMS, because apparently she was found down on the floor. She apparently was going to the bathroom, and fell, but did not hurt herself. She believes her defibrillator, went off, but she was not sure. She is not sure if she lost consciousness according to the [facility]. She apparently denied any chest pain, or difficulty breathing in the emergency department. Apparently, the patient was evaluated by cardiology, and, apparently there was an issue with the defibrillator. Anyway, the patient was all set to be discharged, but apparently last night, and then today, the patient developed some increasing shortness of breath, and, saturations are quite low, and the patient required more more oxygen, to the point where she was on Airvo. We were asked to see the patient because of her respiratory decline. Chest x-ray appears to show possible minimal infiltrate at the right lung base, she may have aspirated. She apparently has a history of throat cancer, undergoing both chemo and radiation therapy. The status of that is not known. In addition, according to the chart, she has a history of COPD, acid reflux disease, hypertension, rheumatoid arthritis, sleep apnea, hypothyroidism, among other things. She has had a heart catheterization, pacemaker, and AICD placement. We attempted to talk to the family about CODE STATUS. They were not sure of her CODE STATUS although in the chart, apparently she was not to be intubated. The was unsure. The daughter could not be reached. A blood gas was done, showing a PO2 of 39, PCO2 of 31, and a pH of 7.55. The patient was transferred to the intensive care unit. The blood gas was done on 100% oxygen. White count was 13.2, hemoglobin 15.7, hematocrit 43. 1, and platelet count 189,000. Sodium was 127, potassium 4.7, chlorides 90, CO2 23, anion gap 14, BUN 39, creatinine 0.91. Glucose was 143. N-terminal proBNP was 1580. TSH was quite high at 15.1. Home medications included levothyroxine, which the patient may or may not be taking. Chest x-ray from earlier, shows a possible minimal infiltrate, right lower lobe. Apparently the patient has been evaluated by speech pathology. Progress note dated December 30, 2024. 69-year-old female who looks much older than her stated age. We saw her yesterday in consultation. Patient developed respiratory failure, presumably secondary to aspiration. Patient is currently on the ventilator. She is on vol ume assist-control, rate 14, tidal volume 450, FiO2 80%, PEEP of 10. Blood gases on 100% show pO2 of 119, pCO2 of 45, pH of 7.35. Art line and central line were placed yesterday. She is on propofol at 40 mcg/kg/min, norepinephrine at 2.8 mcg/min, and saline at 10 cc an hour. She is getting vital high-protein at 10 cc an hour. She continues on azithromycin and Rocephin for aspiration pneumonia. White count of 15.3, hemoglobin 13.9, hematocrit 39.4, platelet count 161,000. Sodium 129, potassium 3.7, chloride 94, CO2 25, BUN 38, creatinine 0.98. Glucose is 186. Calcium 8.2. Chest x-ray shows a small right-sided pleural effusion, and some minimal infiltrate, at the right lung base. Progress note dated December 31, 2024. 69-year-old female seen today in room 262. She remains on volume assist- control, rate 14, tidal volume 450, FiO2 60%, PEEP of 10. Gases on 80% show pO2 of 137, PCO2 of 40, pH of 7.49. She is getting propofol at 40 mcg/kg/min, saline at 15 cc an hour, and vital high-protein at 10 cc, with a goal of 38. The patient is currently on azithromycin and Rocephin. Vancomycin is discontinued. Sputum was positive for Streptococcus pneumoniae. White count 13.6, hemoglobin 12.8, hematocrit 35.7, platelet count 137,000. Sodium 128, potassium 4, chloride 90, CO2 29, BUN 32, creatinine 0.76. Glucose 147. Calcium 8.1. Chest x-ray continues to show bibasilar infiltrates or atelectasis. On 01/01/2025, the patient is being seen for a follow-up. This morning, the p atient has been weaned off the sedation and the patient is arousable and the patient is making good eye contact and following simple commands and answering questions. The patient is on assist-control mode of mechanical ventilation at rate of 14, tidal volume of 450, FiO2 of 50% and a PEEP of 10. The blood gas showed a pH of 7.55 with a [id number] and PO284. The chest x-ray from today shows COPD with some mild patchy atelectatic changes in the left lung base. Hemodynamically stable. White cell count of 13.9, hemothirteen 0.2 and a platelet count of 143. Sodium is at 130 with a potassium level of 3.8, bicarbonate 32, BUN 28 with a creatinine of 0.6. The patient had a sputum sample that was positive for Streptococcus pneumonia and the patient remains on IV Rocephin. The patient remains on bronchodilators and the patient is currently on DuoNeb nebulized treatments [id number]. A bedside cuff leak test was done and the patient has adequate air movement around the ET tube and the patient is currently intubated with a #7 orotracheal tube and this intubation was done due to concerns of her previous history of throat cancer. Tube feeds are currently on hold, possible extubation today based on her progress. On 01/02/2025, the patient is being seen for a follow-up. The patient has been weaned off the mechanical ventilator and the patient was extubated and the patient is currently on 2 L of oxygen by nasal cannula. The patient is having some difficulty in swallowing. The cough is weak. No significant respiratory distress. She failed a bedside swallow and the patient will have an official swallow evaluation. Meanwhile, the patient has been kept NPO. She remains on the lactated Ringer at rate of 75 cc an hour. She was also noted to have oropharyngeal candidiasis. She is awake and alert and communicating. The chest x-ray from this morning shows COPD with slightly worsening patchy retrocardiac atelectasis. The patient's WBC count is 11.2 with a hemoglobin of 11.7 and a platelet count of 102. BUN is 23 with a creatinine 0.6. Sodium level is 134 and a potassium level is at 3.5. The patient remains on IV Rocephin 2 g every 24 hours as the patient sputum sample was positive for strep pneumo. The patient remains on DuoNeb treatments [id number]. The patient is on Coreg 6.25 mg p.o. twice a day, Synthroid 88 mcg p.o. daily, and Lipitor 80 mg p.o. d aily. She is also on aspirin. There is generalized profound weakness in all 4 extremities. Nevertheless, the patient is able to move all 4 extremities and she is following simple commands. Coffee mechanism remains weak. 01/03/2025, the patient is being seen for a follow-up. The patient was pandya sferred out of the intensive care unit postextubation the patient is currently on 2 L of oxygen by nasal cannula. She continues to have some limited congested cough. No significant sputum production. No signs of any significant respiratory distress. She remains profoundly weak and debilitated. She is also having difficulty in swallowing and speech pathology has been involved in the care of the patient is going to undergo a modified barium swallow. The patient also had oropharyngeal candidiasis and the patient is currently taking IV Diflucan. She remains on IV Rocephin regarding a pneumococcal pneumonia with secondary COPD exacerbation. Most recent chest x-ray from 01/02/2025 shows COPD and patchy left lower lobe pulmonary infiltrates/atelectasis/consolidation. The white second 11.2 with a hemoglobin 12.1 and platelet count of 105. Sodium level is at 133, BUN 28 with a creatinine of 0.4. Bicarb is at 21. Glucose is 157. On 01/04/2025, the patient had a coughing COPD. Noted this patient is post ventilator dependent respiratory failure and a pneumococcal pneumonia. The noelle ent remains on IV Rocephin. Episode and following that the patient started having hypoxemia. The patient was brought up from 2 L up to 15 L of nasal cannula. Based on that, further workup was initiated. The patient was given a blood gas that showed acute respiratory alkalosis with a pH of 7.55 and a PCO2 of 29 and PO2 of 33. Subsequently, the patient was placed on 13 L and her current pulse ox is 93%. CT of the chest was also done and the patient had no evidence of any pulmonary embolism. The patient had no filling defects. There was bilateral lower lobe opacities/atelectasis. There is additional few peripheral right upper lobe and lingular groundglass opacities that are minimal and there is also mucous plugging and a trace right-sided pleural effusion. There is also background COPD. Noted the patient is post ventilator dependent respiratory failure and the patient was extubated on 01/02/2025. The patient continued to have dysphagia following her extubation patient is currently NPO. No reported aspiration per nursing staff. Her antibiotic coverage has been switched to IV Unasyn and Rocephin has been discontinued. Remains on bronchodilators. Remains on IV Solu-Medrol. The white cell count from yesterday was 11.2. No labs are available from today. Obviously, her labs need to be repeated. Family is at the bedside. She is arousable and awake although she is quite weak and she seems to be quite debilitated. On 01/05/2025, the patient is being seen for a follow-up. The patient was initially seen on the medical floor and the patient was on 100% of the bed face mask and oxygen nasal cannula at 15 L. Pulse ox was 91%. The patient was lethargic, confused, and sluggishly responsive to verbal or painful stimulation. Noted, the patient was quite hypoxic. Most recent blood gas from this morning showed a pH of 7.6 with a PCO2 of 26 and PO2 of 52 on 100% nonrebreather facemask and oxygen high flow at 15 L. A follow-up chest x-ray was also done that showed small right-sided pleural effusion/atelectasis. Patchy retrocardiac opacity was again present. CT of the chest was also completed yesterday the patient has no evidence of any pulmonary embolism. There is evidence of bilateral lower lobe consolidation and atelectasis and possibly some mucous plugging. Trace right-sided pleural effusion was also noted. The patient was started on IV Unasyn accordingly. Based on ongoing hypoxemia and diminished level of consciousness, the patient was transferred to the intensive care unit. The patient was started on BiPAP. While being on a BiPAP of 12/5 with an FiO2 of 100%, repeat blood gas was done and the patient demonstrated a pH of 7.57 with a pCO2 28 and PO2 of 57. The patient had some difficulty in tolerating the BiPAP and the patient will be started on Precedex to maintain secondary to the BiPAP machine. The patient was given a triple-lumen catheter in the intensive care unit and this was inserted in the right IJ without any complications. No evidence of any pneumothorax post line insertion. Hemodynamically, remained stable. No significant hypotension. The patient was started on lactated Ringer at rate of 75 cc an hour. Antibiotic coverage remains IV Unasyn and Diflucan. Remains on bronchodilators. Remains on IV Solu-Medrol. Currently off diuretics. Remains n.p.o. as the patient had difficulty swallowing post extubation. On 01/06/2025, the patient is being seen in the intensive care unit. Extremely lethargic, weak, difficult to arouse, remains on a BiPAP with borderline oxygenation. The patient has been kept on a BiPAP at a pressure of 10 over 5 cm of water and FiO2 of 80%. The blood gas showed some improvement in oxygenation and the morning blood gas showed a pH of 7.33 with a pCO2 of 31 and pO2 of 89. The patient continues to moan and c occasionally cries for help. She states that she is unable to breathe. The exact cause for her underlying hypoxemia is not clear. Suspect mucous plugs. Noted I reviewed the chest x-ray from this morning and the patient has no clear airspace disease or consolidation. There is some right lower lobe airspace opacity. Otherwise, no significant abnormalities to explain the patient's hypoxemia. The same time, his CT of the chest was done on 01/04/2025 showed bilateral lower lobe consolidation and atelectasis. There was also a few peripheral right upper lobe and lingular groundglass opacities. Findings were trivial and there was no evidence of any pulmonary embolism. A trace right-sided pleural effusion was noted. Based on her critical and borderline respiratory status, I decided to go ahead and intubate the patient. I performed intubation the Glydo scope. I examined the upper airway structures and the vocal cords seem to be quite patent and open and there was no significant supraglottic narrowing of concern. The patient was intubated by #8 orotracheal tube via the glide scope. Following that, I performed a bronchoscopy and the patient did have some purulent mucous plugs in the lower lobes bilaterally, right more than left and total amount of purulent respiratory secretions were suctioned out was in order 50 cc. Meanwhile, the patient was kept on a mechanical ventilator. Currently, the patient is in assist-control mode at rate of 40, tidal volume of 450, FiO2 100% with a PEEP of 5. Blood gas showed a pH of 7.6 with a PCO2 of 23 and PO2 of 128. Postintubation chest x-ray shows no acute cardiopulmonary process. ET tube with distal tip 3.5 cm above the azael. NG tube was also in good location. Morning blood work showed a WBC count of 11.5, hemoglobin 10.7 and platelet count of 100. Sodium is at 136, potassium is at 3.5, BUN 28 and creatinine 0.4. Blood sugar is at 149. The patient is currently on IV Unasyn as a broad-spectrum antibiotics as the patient had a pneumococcal pneumonia at time of admission. The patient remains on DuoNeb nebulizer treatments [id number], IV Solu- Medrol, 40 mg every 12 hours. Patient is also on Diflucan for oropharyngeal candidiasis. Remains on Coreg, Lipitor and aspirin. On 01/07/2025, the patient is being seen for a follow-up. The patient remains intubated on a mechanical ventilator. On today's evaluation, the patient is sedated on propofol which is running at 60 mcg/kg/min. The patient remains also on assist-control mode rate of 14, tidal volume of 400, FiO2 of 70% with a PEEP of 5. The blood gas showed a pH of 7.44 with a GTL125 and PO2 of 75. Chest x- ray findings are essentially unchanged and the patient continues to have some left basilar consolidation. Earlier CAT scan of the chest also showed bibasilar atelectasis and consolidations. The patient had positive sputum sample for strep pneumo. However, a bronchoscopy with therapeutic airway suctioning and mucous plug removal was done yesterday and another bronchoalveolar lavage of the right lower lobe was done. Results are still pending for now. Antibiotic coverage remains unchanged and the patient remains on IV Unasyn. The patient remains on lactated Ringer at rate of 75 cc an hour. Cardiac rhythm is sinus bradycardia. Fluid balance is +3.3 L over the past 24 hours and the patient will be started on enteral feeding for nutritional support. The labs from today showed a WBC count of 13.4, hemoglobin of 10.3 and a platelet count of 111. Sodium is at 135, potassium is at 4.2, BUN is 23 with a creatinine of 0.39. Serum bicarb is at 23. No other significant events overnight on this patient. The Coreg will be placed on hold as the patient is having some bradycardia. Remains on aspirin. Remains on Lipitor. Remains on Diflucan for oropharyngeal candidiasis. Seen today on 01/08/2025, patient remains in the ICU, intubated and mechanically ventilated, on assist-control rate of 14 tidal volume 400 FiO2 50% and PEEP of 8 patient is still requiring pressors norepinephrine at 0.08 mcg/kg/min, she is also on LR 75 cc/h propofol 60 mcg/kg/min vital HP at 10 cc/h. Remains on antibiotics for her streptococcal pneumonia/Unasyn. Patient is also on Diflucan for oropharyngeal candidiasis. Apparently the patient was extubated on 01/01, reintubated on 01/06 CODE STATUS has been changed to DNR CODE STATUS, however the issue of comfort care was not discussed or at least the family is undecided regarding her overall condition. Patient is sedated, chest x-ray was reviewed and it showed cardiomegaly, mild pulmonary vascular congestion, and right lower lobe consolidation/pneumonia. Labs reviewed WBC count is 11.5 hemoglobin 10.1 electrolytes are normal, renal profile is normal blood sugar is 167. Seen today on 01/09/2025, remains in the ICU, intubated and mechanically ventilated, on assist-control rate of 14 tidal volume 400 FiO2 50% PEEP of 8 I cut it down to 5 ABG showed a pO2 of 92 pCO2 34 pH of 7.5. Chest x-ray showed minimal congestive changes with pulmonary vascular congestion and left basilar atelectasis, patient is off propofol this morning, she is arousable, but she t ends to fall asleep easily and noted to have episodes of apnea. Hence I transitioned her ventilatory settings to pressure support of 10 with IMV rate, backup rate of 8, and I plan to give the patient at least a weaning trial with pressure support low IMV backup rate because of her apnea, and continue with CPAP. This will be done today. And if the patient tolerates this mode for few hours, may check ABG and decide whether the patient could be extubated. Clinically this is probably our window to extubate the patient, patient is no code, may have to discuss with the family whether the patient could be reintubated if she fails extubation, but apparently the CODE STATUS has been established as no code. Labs were reviewed today, WBC count is 13.3 hemoglobin 10.1 platelets are 123. Basic metabolic profile is normal BUN is 18 creatinine 0.38 Objective - Vital Signs Vital signs: Vital Signs Temp 98.3 F 01/09/25 12:00 Pulse 111 H 01/09/25 13:15 Resp 8 L 01/09/25 13:15 BP 112/73 01/09/25 13:15 Pulse Ox 98 01/09/25 13:15 FiO2 50 01/09/25 12:18 Intake & Output 01/08/25 01/09/25 01/09/25 18:59 06:59 18:59 Intake Total 6329.835 2929.463 1126.943 Output Total 239 435 570 Balance 5331.551 7700.463 556.943 Weight 81.8 kg 85.6 kg Intake: IV 1018 1056 666 0.9 110 120 70 Fluconazole in NaCl,Iso- 50 50 Osm 100 mg In Saline 1 50ml.bag @ 50 mls/hr IVPB DAILY [facility] Rx#:[id number] Lactated Ringers 1,000 ml 825 900 525 @ 75 mls/hr IV .[id number] [facility] Rx#:[id number] Pressure bag 33 36 21 Intake, IV Titration 439.166 152.463 150.943 Amount Ampicillin-Sulbactam 3 gm 200 100 In Sodium Chloride 0.9% 100 ml @ 200 mls/hr IVPB Q6HR [facility] Rx#:[id number] Magnesium Sulfate-D5w Pmx 100 1 gm In Dextrose/Water 1 100ml.bag @ 100 mls/hr IVPB ONCE ONE Rx#: [id number] Norepinephrine 8 mg In 47.395 7.236 Sodium Chloride 0.9% 250 ml @ 0.03 MCG/KG/MIN 4. 122 mls/hr IV .Q24H [facility] Rx#:[id number] propofoL 1,000 mg In 191.771 45.227 50.943 Empty Bag 1 bag @ 15 MCG/ KG/MIN 6.39 mls/hr IV . [id number] [facility] Rx#:[id number] Oral 180 Tube Feeding 150 240 100 Other 120 150 30 Output: Urine 239 435 570 Other: Voiding Method Indwelling Catheter Indwelling Catheter Indwelling Catheter ABP, PAP, CO, CI - Last Documented Arterial Blood Pressure 107/57 - Exam Physical exam revealed a 69-year-old female in no distress intubated mechanically ventilated however the patient is arousable, follows simple instructions, she does have episodes of apnea. Head: Atraumatic normocephalic HEENT: PERRLA EOMI, nonicteric no neck masses no JVD Chest crackles at the bases no rhonchi no wheezes Cardiac distant S1-S2, no S3 gallop, no murmur Abdomen soft nontender no megaly no rebound no guarding Extremities no clubbing edema or cyanosis Skin: No rashes Neurologic: Awake, follows simple instruction, does not seem to have any focal neurologic deficit. Psychiatric: Normal mood affect and no mental status examination - Labs CBC & Chem 7: 01/09/25 04:40 01/09/25 04:40 Labs: Abnormal Lab Results - Last 24 Hours (Table) 01/08/25 01/08/25 01/09/25 Range/Units 17:41 23:30 04:40 WBC 13.31 H (4.50-10.00) 10*3/uL RBC 3.19 L (4.10-5.20) 10*6/uL Hgb 10.1 L (12.0-15.0) g/dL Hct 30.2 L (37.2-46.3) % Plt Count 123 L (140-440) 10*3/uL Immature Gran # 0.69 H (0.00-0.04) 10*3/uL Neutrophils # (Manual) 12.91 H (1.3-7.7) k/uL Lymphocytes # (Manual) 0.13 L (1.0-4.8) k/uL ABG pH (7.35-7.45) ABG pCO2 (35-45) mmHg ABG HCO3 (21-25) mmol/L ABG Total CO2 (19-24) mmol/L ABG O2 Saturation (94-97) % Hemoglobin (11.4-16.0) gm/dL Sodium (137-145) mmol/L BUN (7-17) mg/dL Creatinine (0.52-1.04) mg/dL Glucose (74-99) mg/dL POC Glucose (mg/dL) 173 H 199 H (70-110) mg/dL Calcium (8.4-10.2) mg/dL 01/09/25 01/09/25 01/09/25 Range/Units 04:40 04:40 06:02 WBC (4.50-10.00) 10*3/uL RBC (4.10-5.20) 10*6/uL Hgb (12.0-15.0) g/dL Hct (37.2-46.3) % Plt Count (140-440) 10*3/uL Immature Gran # (0.00-0.04) 10*3/uL Neutrophils # (Manual) (1.3-7.7) k/uL Lymphocytes # (Manual) (1.0-4.8) k/uL ABG pH 7.51 H (7.35-7.45) ABG pCO2 34 L (35-45) mmHg ABG HCO3 28 H (21-25) mmol/L ABG Total CO2 29 H (19-24) mmol/L ABG O2 Saturation 98.4 H (94-97) % Hemoglobin 10.6 L (11.4-16.0) gm/dL Sodium 134 L (137-145) mmol/L BUN 18 H (7-17) mg/dL Creatinine 0.38 L (0.52-1.04) mg/dL Glucose 170 H (74-99) mg/dL POC Glucose (mg/dL) 176 H (70-110) mg/dL Calcium 7.9 L (8.4-10.2) mg/dL 01/09/25 Range/Units 11:48 WBC (4.50-10.00) 10*3/uL RBC (4.10-5.20) 10*6/uL Hgb (12.0-15.0) g/dL Hct (37.2-46.3) % Plt Count (140-440) 10*3/uL Immature Gran # (0.00-0.04) 10*3/uL Neutrophils # (Manual) (1.3-7.7) k/uL Lymphocytes # (Manual) (1.0-4.8) k/uL ABG pH (7.35-7.45) ABG pCO2 (35-45) mmHg ABG HCO3 (21-25) mmol/L ABG Total CO2 (19-24) mmol/L ABG O2 Saturation (94-97) % Hemoglobin (11.4-16.0) gm/dL Sodium (137-145) mmol/L BUN (7-17) mg/dL Creatinine (0.52-1.04) mg/dL Glucose (74-99) mg/dL POC Glucose (mg/dL) 202 H (70-110) mg/dL Calcium (8.4-10.2) mg/dL Microbiology - Last 24 Hours (Table) 01/06/25 10:10 Gram Stain - Final Bronchoalviolar Lavage - Left Bronchial Washings Culture - Final Thelma albicans Assessment and Plan Assessment: Impression: Acute hypoxic respiratory failure secondary to pneumococcal pneumonia and severe cardiomyopathy with acute on chronic systolic congestive heart failure and underlying COPD. 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 Continue antibiotics Continue diuretics Continue Diflucan Continue to hold all sedatives and narcotics for now Continue statins Continue aspirin Continue GI DVT prophylaxis Hemodynamic support patient is off pressors today. Discontinued yesterday. Continue nutritional support/enteral feeding Patient remains critically ill may or may not extubate this afternoon. Critical care time is 33 minutes Prognosis is extremely poor and guarded Time with Patient: Greater than 30
[2025-01-09] MEDS: LORazepam 1 MG/0.5 ML VIAL IV PRN (17:00)
[2025-01-09 17:57] LABS: Glucose,Whole Blood 146 mg/dL (70-110)
--- NOTE | 2025-01-09 19:45 | PN ---
PROGRESS NOTE CHIEF COMPLAINT: 1. Acute respiratory failure. 2. Chronic obstructive pulmonary disease. 3. Pneumonitis. 4. History of carcinoma of the larynx. HISTORY OF PRESENT ILLNESS: This lady continues on the ventilator. She still is on pressors. There is no significant change or improvement. She is making possibly little bit more urine than she did in the last 24 hours. PHYSICAL EXAMINATION: LUNGS: She is on a ventilator. Breath sounds are heard on both sides. CARDIAC: Demonstrates what sounds like sinus rhythm. ABDOMEN: Soft and nontender. IMPRESSION: 1. Acute respiratory failure. 2. Pneumonitis. 3. History of carcinoma of the larynx. PLAN: She will continue to receive supportive care in the intensive care unit. Should something happen, and SHE IS NOT TO BE RESUSCITATED. MMODL / IJN: [id number] /
[2025-01-09] MEDS: PANTOPRAZOLE 40 MG/10 ML VIAL IVP SCH (20:35)
[2025-01-09 22:51] LABS: Glucose,Whole Blood 181 mg/dL (70-110)
[2025-01-10 05:31] LABS: HCT 27.7 % (37.2-46.3); HGB 9.3 g/dL (12.0-15.0); MCH 32.0 pg (27.0-32.0); MCHC 33.6 g/dL (32.0-37.0); MCV 95.2 fL (80.0-97.0); Platelet Count 117 10*3/uL (140-440); RBC 2.91 10*6/uL (4.10-5.20); RDW 18.3 % (11.5-14.5); WBC 9.80 10*3/uL (4.50-10.00)
[2025-01-10 05:34] LABS: ABG HCO3 29 mmol/L (21-25); ABG PCO2 37 mmHg (35-45); ABG PH 7.51 (7.35-7.45); ABG PO2 105 mmHg (83-108); ABG TCO2 30 mmol/L (19-24); Allen Test Performed? Yes
[2025-01-10 05:51] LABS: African American GFR (CKD) >90 (>60 ml/min/1.73 sqM); Anion Gap 1 mmol/L; Blood Urea Nitrogen 15 mg/dL (7-17); Calcium 7.5 mg/dL (8.4-10.2); Carbon Dioxide 28 mmol/L (22-30); Chloride 103 mmol/L (98-107); Glucose 160 mg/dL (74-99); Magnesium 1.8 mg/dL (1.6-2.3); Non-African American GFR(CKD) >90 (>60 ml/min/1.73 sqM); Potassium 3.8 mmol/L (3.5-5.1); Sodium 132 mmol/L (137-145)
[2025-01-10 05:55] LABS: Glucose,Whole Blood 171 mg/dL (70-110)
[2025-01-10] MEDS: MAGNESIUM SULFATE-D5W PMX 1 GM in DEXTROSE/WATER 1 100ML.BAG IVPB ONE (06:20)
--- NOTE | 2025-01-10 07:25 | XR ---
EXAMINATION TYPE: XR chest 1V portable DATE OF EXAM: 01/10/2025 5:37 AM COMPARISON: Multiple radiographs, with the most recent on 01/09/2025 TECHNIQUE: XR chest 1V portable Portable AP radiograph of the chest. CLINICAL INDICATION:Female, 69 years old with history of Mechanical ventilation; FINDINGS: Lungs/Pleura: The right costophrenic angle is not included in the [id number]. Small left pleural e ffusion. Bibasilar patchy opacities. No pneumothorax. Pulmonary vascularity: Unremarkable. Heart/mediastinum: Cardiomediastinal silhouette is enlarged and stable. Atherosclerotic calcificatio ns are seen in the aorta. Three lead cardiac conduction device overlying the left hemithorax with jeferson d tips projecting over the right ventricle, right atrium and coronary sinus. Musculoskeletal: No acute osseous pathology. Other findings: None Lines/Tubes: Endotracheal tube with distal tip 4.3 cm above the azael Nasogastric tube with its distal tip and side-port projecting under the diaphragm. Right IJ central venous catheter with distal tip at the low SVC. IMPRESSION: 1. Cardiomegaly with small left pleural effusion. 2. Bibasilar patchy airspace opacities representing atelectasis versus infiltrates. 3. Stable support lines and tubes. [facility], , 01/10/2025 7:22 AM
--- NOTE | 2025-01-10 07:50 | P.PN ---
Subjective Progress Note Date: 01/09/25 Principal diagnosis: Reason for follow-up is pneumonia Patient is a 69-year-old female with a past medical history significant for hypertension rheumatoid arthritis reflux COPD did have history of AICD anxiety depression, history of throat cancer on chemoradiation initially presented to hospital after repeated have a fall subsequent did have a worsening respiratory status requiring intubation admission in the ICU there was concern for pneumonia sputum with strep pneumo prompted this consultation On today's evaluation that is 01/09/2025, Patient is afebrile this morning patient remains to be debated on the vent FiO2 is currently at 50%, no significant purulent secretion through the ET patient is undergoing weaning trials hemodynamically stable. Patient white count is 13.31, creatinine is 0.38 bronchial culture growing Thelma Objective - Vital Signs Vital signs: Vital Signs Temp 98.0 F 01/09/25 08:00 Pulse 111 H 01/09/25 11:00 Resp 8 L 01/09/25 11:00 BP 121/72 01/09/25 10:45 Pulse Ox 99 01/09/25 11:00 FiO2 50 01/09/25 09:04 Intake & Output 01/08/25 01/09/25 01/09/25 18:59 06:59 18:59 Intake Total 9886.464 2076.463 750.943 Output Total 239 435 360 Balance 5254.875 6780.463 390.943 Weight 81.8 kg 85.6 kg Intake: IV 1018 1056 290 0.9 110 120 50 Fluconazole in NaCl,Iso- 50 Osm 100 mg In Saline 1 50ml.bag @ 50 mls/hr IVPB DAILY [facility] Rx#:[id number] Lactated Ringers 1,000 ml 825 900 225 @ 75 mls/hr IV .[id number] [facility] Rx#:[id number] Pressure bag 33 36 15 Intake, IV Titration 439.166 152.463 150.943 Amount Ampicillin-Sulbactam 3 gm 200 100 In Sodium Chloride 0.9% 100 ml @ 200 mls/hr IVPB Q6HR [facility] Rx#:[id number] Magnesium Sulfate-D5w Pmx 100 1 gm In Dextrose/Water 1 100ml.bag @ 100 mls/hr IVPB ONCE ONE Rx#: [id number] Norepinephrine 8 mg In 47.395 7.236 Sodium Chloride 0.9% 250 ml @ 0.03 MCG/KG/MIN 4. 122 mls/hr IV .Q24H [facility] Rx#:[id number] propofoL 1,000 mg In 191.771 45.227 50.943 Empty Bag 1 bag @ 15 MCG/ KG/MIN 6.39 mls/hr IV . [id number] [facility] Rx#:[id number] Oral 180 Tube Feeding 150 240 100 Other 120 150 30 Output: Urine 239 435 360 Other: Voiding Method Indwelling Catheter Indwelling Catheter Indwelling Catheter ABP, PAP, CO, CI - Last Documented Arterial Blood Pressure 123/66 - Exam GENERAL DESCRIPTION: An elderly female lying in bed in no distress RESPIRATORY SYSTEM: Unlabored breathing , decreased breath sounds at bases HEART: S1 S2 regular rate and rhythm , ABDOMEN: Soft , no tenderness EXTREMITIES: No edema feet - Labs CBC & Chem 7: 01/10/25 05:01 01/10/25 05:01 Labs: Abnormal Lab Results - Last 24 Hours (Table) 01/08/25 01/08/25 01/09/25 Range/Units 17:41 23:30 04:40 WBC 13.31 H (4.50-10.00) 10*3/uL RBC 3.19 L (4.10-5.20) 10*6/uL Hgb 10.1 L (12.0-15.0) g/dL Hct 30.2 L (37.2-46.3) % Plt Count 123 L (140-440) 10*3/uL Immature Gran # 0.69 H (0.00-0.04) 10*3/uL Neutrophils # (Manual) 12.91 H (1.3-7.7) k/uL Lymphocytes # (Manual) 0.13 L (1.0-4.8) k/uL ABG pH (7.35-7.45) ABG pCO2 (35-45) mmHg ABG HCO3 (21-25) mmol/L ABG Total CO2 (19-24) mmol/L ABG O2 Saturation (94-97) % Hemoglobin (11.4-16.0) gm/dL Sodium (137-145) mmol/L BUN (7-17) mg/dL Creatinine (0.52-1.04) mg/dL Glucose (74-99) mg/dL POC Glucose (mg/dL) 173 H 199 H (70-110) mg/dL Calcium (8.4-10.2) mg/dL 01/09/25 01/09/25 01/09/25 Range/Units 04:40 04:40 06:02 WBC (4.50-10.00) 10*3/uL RBC (4.10-5.20) 10*6/uL Hgb (12.0-15.0) g/dL Hct (37.2-46.3) % Plt Count (140-440) 10*3/uL Immature Gran # (0.00-0.04) 10*3/uL Neutrophils # (Manual) (1.3-7.7) k/uL Lymphocytes # (Manual) (1.0-4.8) k/uL ABG pH 7.51 H (7.35-7.45) ABG pCO2 34 L (35-45) mmHg ABG HCO3 28 H (21-25) mmol/L ABG Total CO2 29 H (19-24) mmol/L ABG O2 Saturation 98.4 H (94-97) % Hemoglobin 10.6 L (11.4-16.0) gm/dL Sodium 134 L (137-145) mmol/L BUN 18 H (7-17) mg/dL Creatinine 0.38 L (0.52-1.04) mg/dL Glucose 170 H (74-99) mg/dL POC Glucose (mg/dL) 176 H (70-110) mg/dL Calcium 7.9 L (8.4-10.2) mg/dL 01/09/25 Range/Units 11:48 WBC (4.50-10.00) 10*3/uL RBC (4.10-5.20) 10*6/uL Hgb (12.0-15.0) g/dL Hct (37.2-46.3) % Plt Count (140-440) 10*3/uL Immature Gran # (0.00-0.04) 10*3/uL Neutrophils # (Manual) (1.3-7.7) k/uL Lymphocytes # (Manual) (1.0-4.8) k/uL ABG pH (7.35-7.45) ABG pCO2 (35-45) mmHg ABG HCO3 (21-25) mmol/L ABG Total CO2 (19-24) mmol/L ABG O2 Saturation (94-97) % Hemoglobin (11.4-16.0) gm/dL Sodium (137-145) mmol/L BUN (7-17) mg/dL Creatinine (0.52-1.04) mg/dL Glucose (74-99) mg/dL POC Glucose (mg/dL) 202 H (70-110) mg/dL Calcium (8.4-10.2) mg/dL Microbiology - Last 24 Hours (Table) 01/06/25 10:10 Gram Stain - Final Bronchoalviolar Lavage - Left Bronchial Washings Culture - Final Thelma albicans Assessment and Plan (1) Sepsis Current Visit: Yes Status: Acute Code(s): A41.9 - SEPSIS, UNSPECIFIED ORGANISM SNOMED Code(s): 22690179 (2) Streptococcus pneumoniae infection Current Visit: Yes Status: Acute Code(s): A49.1 - STREPTOCOCCAL INFECTION, UNSPECIFIED SITE SNOMED Code(s): 56614103 (3) Pneumonia Current Visit: No Status: Acute Code(s): J18.9 - PNEUMONIA, UNSPECIFIED ORGANISM SNOMED Code(s): 638123079 Plan: 1patient presenting to the hospital with shortness of breath and there was concern for AICD fire subsequently worsening of respiratory status required intubation intubation in the ICU patient do have hypotension requiring pressor support elevated white count meeting currently for SIRS/sepsis source is likely pneumonia with a question of community-acquired versus aspiration pneumonia as the patient did have a history of throat cancer on chemoradiation and there was concern for aspiration the time of intubation sputum is currently showing Str eptococcus pneumoniae that has been sensitive to ceftriaxone and Augmentin 2-patient did have worsening of her respiratory status requiring more supplemental oxygen she did have CT angiogram of the chest that was negative for PE she was consulted for changes and mucous plugging 3patient is status post intubation bronchoscopy and lavage culture are currently growing Thelma which is likely colonizer 4patient is afebrile white coun trending up could be related to the oropharyngeal candidiasis for which Diflucan has been added, continue with Unasyn and monitor clinical course closely Dictation was produced using [employer] dictation software. please excuse any grammatical, word or spelling errors.
[2025-01-10 10:44] LABS: Lymphocytes # (M) 0.29 k/uL (1.0-4.8); Metamyelocytes # (M) 0.10 k/uL (0); Monocytes # (M) 0.29 k/uL (0-1.0); Neutrophils # (M) 9.11 k/uL (1.3-7.7); Neutrophils % (M) 92 %; Total Cells Counted 100
[2025-01-10 10:45] LABS: RBC Morphology Normal
[2025-01-10] MEDS: FUROSEMIDE 10 MG/ML 2 ML VIAL IV SCH (11:02)
[2025-01-10 11:23] LABS: Glucose,Whole Blood 157 mg/dL (70-110)
--- NOTE | 2025-01-10 12:22 | P.PN ---
Subjective Progress Note Date: 01/10/25 Principal diagnosis: Reason for follow-up is pneumonia Patient is a 69-year-old female with a past medical history significant for hypertension rheumatoid arthritis reflux COPD did have history of AICD anxiety depression, history of throat cancer on chemoradiation initially presented to hospital after repeated have a fall subsequent did have a worsening respiratory status requiring intubation admission in the ICU there was concern for pneumonia sputum with strep pneumo prompted this consultation On today's evaluation that is 01/10/2025,the patient remains to be afebrile patient remains to be intubated on the vent FiO2 is currently at 40% patient is hemodynamically stable no significant purulent secretion through the ET or any other changes reported by the nursing staff. Patient white count has normalized to the 9.80 creatinine 0.35 BAL wash with Thelma Objective - Vital Signs Vital signs: Vital Signs Temp 98.1 F 01/10/25 12:00 Pulse 87 01/10/25 12:15 Resp 17 01/10/25 12:15 BP 89/72 01/10/25 12:15 Pulse Ox 96 01/10/25 12:15 FiO2 40 01/10/25 12:00 Intake & Output 01/09/25 01/10/25 01/10/25 18:59 06:59 18:59 Intake Total 9111.148 2463.370 908.229 Output Total 0072 091 9310 Balance 758.521 953.370 -241.771 Weight 86.1 kg Intake: IV 1106 1076 638 0.9 120 140 120 Fluconazole in NaCl,Iso- 50 50 Osm 100 mg In Saline 1 50ml.bag @ 50 mls/hr IVPB DAILY [facility] Rx#:[id number] Lactated Ringers 1,000 ml 900 900 450 @ 75 mls/hr IV .[id number] [facility] Rx#:[id number] Pressure bag 36 36 18 Intake, IV Titration 167.521 144.370 12.229 Amount Ampicillin-Sulbactam 3 gm 100 In Sodium Chloride 0.9% 100 ml @ 200 mls/hr IVPB Q6HR [facility] Rx#:[id number] Magnesium Sulfate-D5w Pmx 100 1 gm In Dextrose/Water 1 100ml.bag @ 100 mls/hr IVPB ONCE ONE Rx#: [id number] Norepinephrine 8 mg In 11.426 12.229 Sodium Chloride 0.9% 250 ml @ 0.03 MCG/KG/MIN 4. 122 mls/hr IV .Q24H [facility] Rx#:[id number] propofoL 1,000 mg In 67.521 32.944 Empty Bag 1 bag @ 15 MCG/ KG/MIN 6.39 mls/hr IV . [id number] [facility] Rx#:[id number] Oral 330 Tube Feeding 160 393 198 Other 60 180 60 Output: Urine 5752 917 3419 Other: Voiding Method Indwelling Catheter Indwelling Catheter Indwelling Catheter ABP, PAP, CO, CI - Last Documented Arterial Blood Pressure 112/57 - Exam GENERAL DESCRIPTION: An elderly female lying in bed in no distress RESPIRATORY SYSTEM: Unlabored breathing , decreased breath sounds at bases HEART: S1 S2 regular rate and rhythm , ABDOMEN: Soft , no tenderness EXTREMITIES: No edema feet - Labs CBC & Chem 7: 01/10/25 05:01 01/10/25 05:01 Labs: Abnormal Lab Results - Last 24 Hours (Table) 01/09/25 01/09/25 01/10/25 Range/Units 17:55 22:49 05:01 RBC 2.91 L (4.10-5.20) 10*6/uL Hgb 9.3 L (12.0-15.0) g/dL Hct 27.7 L (37.2-46.3) % Plt Count 117 L (140-440) 10*3/uL Immature Gran # 0.67 H (0.00-0.04) 10*3/uL Neutrophils # (Manual) 9.11 H (1.3-7.7) k/uL Lymphocytes # (Manual) 0.29 L (1.0-4.8) k/uL Metamyelocytes # (Man) 0.10 H (0) k/uL ABG pH (7.35-7.45) ABG HCO3 (21-25) mmol/L ABG Total CO2 (19-24) mmol/L ABG O2 Saturation (94-97) % Hemoglobin (11.4-16.0) gm/dL Sodium (137-145) mmol/L Creatinine (0.52-1.04) mg/dL Glucose (74-99) mg/dL POC Glucose (mg/dL) 146 H 181 H (70-110) mg/dL Calcium (8.4-10.2) mg/dL 01/10/25 01/10/25 01/10/25 Range/Units 05:01 05:30 05:54 RBC (4.10-5.20) 10*6/uL Hgb (12.0-15.0) g/dL Hct (37.2-46.3) % Plt Count (140-440) 10*3/uL Immature Gran # (0.00-0.04) 10*3/uL Neutrophils # (Manual) (1.3-7.7) k/uL Lymphocytes # (Manual) (1.0-4.8) k/uL Metamyelocytes # (Man) (0) k/uL ABG pH 7.51 H (7.35-7.45) ABG HCO3 29 H (21-25) mmol/L ABG Total CO2 30 H (19-24) mmol/L ABG O2 Saturation 98.9 H (94-97) % Hemoglobin 10.1 L (11.4-16.0) gm/dL Sodium 132 L (137-145) mmol/L Creatinine 0.35 L (0.52-1.04) mg/dL Glucose 160 H (74-99) mg/dL POC Glucose (mg/dL) 171 H (70-110) mg/dL Calcium 7.5 L (8.4-10.2) mg/dL 01/10/25 Range/Units 11:21 RBC (4.10-5.20) 10*6/uL Hgb (12.0-15.0) g/dL Hct (37.2-46.3) % Plt Count (140-440) 10*3/uL Immature Gran # (0.00-0.04) 10*3/uL Neutrophils # (Manual) (1.3-7.7) k/uL Lymphocytes # (Manual) (1.0-4.8) k/uL Metamyelocytes # (Man) (0) k/uL ABG pH (7.35-7.45) ABG HCO3 (21-25) mmol/L ABG Total CO2 (19-24) mmol/L ABG O2 Saturation (94-97) % Hemoglobin (11.4-16.0) gm/dL Sodium (137-145) mmol/L Creatinine (0.52-1.04) mg/dL Glucose (74-99) mg/dL POC Glucose (mg/dL) 157 H (70-110) mg/dL Calcium (8.4-10.2) mg/dL Microbiology - Last 24 Hours (Table) 01/06/25 10:10 Gram Stain - Final Bronchoalviolar Lavage - Left Bronchial Washings Culture - Final Thelma albicans Assessment and Plan (1) Sepsis Current Visit: Yes Status: Acute Code(s): A41.9 - SEPSIS, UNSPECIFIED ORG ANISM SNOMED Code(s): 66848501 (2) Streptococcus pneumoniae infection Current Visit: Yes Status: Acute Code(s): A49.1 - STREPTOCOCCAL INFECTION, UNSPECIFIED SITE SNOMED Code(s): 49294316 (3) Pneumonia Current Visit: No Status: Acute Code(s): J18.9 - PNEUMONIA, UNSPECIFIED ORGANISM SNOMED Code(s): 398124028 Plan: 1patient presenting to the hospital with shortness of breath and there was conc melvina for AICD fire subsequently worsening of respiratory status required intubation intubation in the ICU patient do have hypotension requiring pressor support elevated white count meeting currently for SIRS/sepsis source is likely pneumonia with a question of community-acquired versus aspiration pneumonia as the patient did have a history of throat cancer on chemoradiation and there was concern for aspiration the time of intubation sputum is currently showing Streptococcus pneumoniae that has been sensitive to ceftriaxone and Augmentin 2-patient did have worsening of her respiratory status requiring more supplemental oxygen she did have CT angiogram of the chest that was negative for PE she was consulted for changes and mucous plugging 3patient is status post intubation bronchoscopy and lavage culture are currently growing Thelma which is likely colonizer 4patient is afebrile white coun trending up could be related to the oropharyngeal candidiasis for which Diflucan has been added, 5patient white count has normalized at this point to continue with Unasyn and Diflucan, monitor clinical course closely Dictation was produced using [employer] dictation software. please excuse any gra mmatical, word or spelling errors. Time with Patient: Less than 30
--- NOTE | 2025-01-10 14:38 | P.PN ---
Subjective Progress Note Date: 01/10/25 Principal diagnosis: Acute hypoxic respiratory failure secondary to pneumococcal pneumonia involving left lower lobe 69-year-old female who looks much older than her stated age, who apparently comes into the emergency department, December 25, brought in by EMS, because apparently she was found down on the floor. She apparently was going to the bathroom, and fell, but did not hurt herself. She believes her defibrillator, went off, but she was not sure. She is not sure if she lost consciousness according to the [facility]. She apparently denied any chest pain, or difficulty breathing in the emergency department. Apparently, the patient was evaluated by cardiology, and, apparently there was an issue with the defibrillator. Anyway, the patient was all set to be discharged, but apparently last night, and then today, the patient developed some increasing shortness of breath, and, saturations are quite low, and the patient required more more oxygen, to the point where she was on Airvo. We were asked to see the patient because of her respiratory decline. Chest x-ray appears to show possible minimal infiltrate at the right lung base, she may have aspirated. She apparently has a history of throat cancer, undergoing both chemo and radiation therapy. The status of that is not known. In addition, according to the chart, she has a history of COPD, acid reflux disease, hypertension, rheumatoid arthritis, sleep apnea, hypothyroidism, among other things. She has had a heart catheterization, pacemaker, and AICD placement. We attempted to talk to the family about CODE STATUS. They were not sure of her CODE STATUS although in the chart, apparently she was not to be intubated. The was unsure. The daughter could not be reached. A blood gas was done, showing a PO2 of 39, PCO2 of 31, and a pH of 7.55. The patient was transferred to the intensive care unit. The blood gas was done on 100% oxygen. White count was 13.2, hemoglobin 15.7, hematocrit 43. 1, and platelet count 189,000. Sodium was 127, potassium 4.7, chlorides 90, CO2 23, anion gap 14, BUN 39, creatinine 0.91. Glucose was 143. N-terminal proBNP was 1580. TSH was quite high at 15.1. Home medications included levothyroxine, which the patient may or may not be taking. Chest x-ray from earlier, shows a possible minimal infiltrate, right lower lobe. Apparently the patient has been evaluated by speech pathology. Progress note dated December 30, 2024. 69-year-old female who looks much older than her stated age. We saw her yesterday in consultation. Patient developed respiratory failure, presumably secondary to aspiration. Patient is currently on the ventilator. She is on vol ume assist-control, rate 14, tidal volume 450, FiO2 80%, PEEP of 10. Blood gases on 100% show pO2 of 119, pCO2 of 45, pH of 7.35. Art line and central line were placed yesterday. She is on propofol at 40 mcg/kg/min, norepinephrine at 2.8 mcg/min, and saline at 10 cc an hour. She is getting vital high-protein at 10 cc an hour. She continues on azithromycin and Rocephin for aspiration pneumonia. White count of 15.3, hemoglobin 13.9, hematocrit 39.4, platelet count 161,000. Sodium 129, potassium 3.7, chloride 94, CO2 25, BUN 38, creatinine 0.98. Glucose is 186. Calcium 8.2. Chest x-ray shows a small right-sided pleural effusion, and some minimal infiltrate, at the right lung base. Progress note dated December 31, 2024. 69-year-old female seen today in room 262. She remains on volume assist- control, rate 14, tidal volume 450, FiO2 60%, PEEP of 10. Gases on 80% show pO2 of 137, PCO2 of 40, pH of 7.49. She is getting propofol at 40 mcg/kg/min, saline at 15 cc an hour, and vital high-protein at 10 cc, with a goal of 38. The patient is currently on azithromycin and Rocephin. Vancomycin is discontinued. Sputum was positive for Streptococcus pneumoniae. White count 13.6, hemoglobin 12.8, hematocrit 35.7, platelet count 137,000. Sodium 128, potassium 4, chloride 90, CO2 29, BUN 32, creatinine 0.76. Glucose 147. Calcium 8.1. Chest x-ray continues to show bibasilar infiltrates or atelectasis. On 01/01/2025, the patient is being seen for a follow-up. This morning, the p atient has been weaned off the sedation and the patient is arousable and the patient is making good eye contact and following simple commands and answering questions. The patient is on assist-control mode of mechanical ventilation at rate of 14, tidal volume of 450, FiO2 of 50% and a PEEP of 10. The blood gas showed a pH of 7.55 with a EIM738 and PO284. The chest x-ray from today shows COPD with some mild patchy atelectatic changes in the left lung base. Hemodynamically stable. White cell count of 13.9, hemothirteen 0.2 and a platelet count of 143. Sodium is at 130 with a potassium level of 3.8, bicarbonate 32, BUN 28 with a creatinine of 0.6. The patient had a sputum sample that was positive for Streptococcus pneumonia and the patient remains on IV Rocephin. The patient remains on bronchodilators and the patient is currently on DuoNeb nebulized treatments [id number]. A bedside cuff leak test was done and the patient has adequate air movement around the ET tube and the patient is currently intubated with a #7 orotracheal tube and this intubation was done due to concerns of her previous history of throat cancer. Tube feeds are currently on hold, possible extubation today based on her progress. On 01/02/2025, the patient is being seen for a follow-up. The patient has been weaned off the mechanical ventilator and the patient was extubated and the patient is currently on 2 L of oxygen by nasal cannula. The patient is having some difficulty in swallowing. The cough is weak. No significant respiratory distress. She failed a bedside swallow and the patient will have an official swallow evaluation. Meanwhile, the patient has been kept NPO. She remains on the lactated Ringer at rate of 75 cc an hour. She was also noted to have oropharyngeal candidiasis. She is awake and alert and communicating. The chest x-ray from this morning shows COPD with slightly worsening patchy retrocardiac atelectasis. The patient's WBC count is 11.2 with a hemoglobin of 11.7 and a platelet count of 102. BUN is 23 with a creatinine 0.6. Sodium level is 134 and a potassium level is at 3.5. The patient remains on IV Rocephin 2 g every 24 hours as the patient sputum sample was positive for strep pneumo. The patient remains on DuoNeb treatments [id number]. The patient is on Coreg 6.25 mg p.o. twice a day, Synthroid 88 mcg p.o. daily, and Lipitor 80 mg p.o. d aily. She is also on aspirin. There is generalized profound weakness in all 4 extremities. Nevertheless, the patient is able to move all 4 extremities and she is following simple commands. Coffee mechanism remains weak. 01/03/2025, the patient is being seen for a follow-up. The patient was pandya sferred out of the intensive care unit postextubation the patient is currently on 2 L of oxygen by nasal cannula. She continues to have some limited congested cough. No significant sputum production. No signs of any significant respiratory distress. She remains profoundly weak and debilitated. She is also having difficulty in swallowing and speech pathology has been involved in the care of the patient is going to undergo a modified barium swallow. The patient also had oropharyngeal candidiasis and the patient is currently taking IV Diflucan. She remains on IV Rocephin regarding a pneumococcal pneumonia with secondary COPD exacerbation. Most recent chest x-ray from 01/02/2025 shows COPD and patchy left lower lobe pulmonary infiltrates/atelectasis/consolidation. The white second 11.2 with a hemoglobin 12.1 and platelet count of 105. Sodium level is at 133, BUN 28 with a creatinine of 0.4. Bicarb is at 21. Glucose is 157. On 01/04/2025, the patient had a coughing COPD. Noted this patient is post ventilator dependent respiratory failure and a pneumococcal pneumonia. The noelle ent remains on IV Rocephin. Episode and following that the patient started having hypoxemia. The patient was brought up from 2 L up to 15 L of nasal cannula. Based on that, further workup was initiated. The patient was given a blood gas that showed acute respiratory alkalosis with a pH of 7.55 and a PCO2 of 29 and PO2 of 33. Subsequently, the patient was placed on 13 L and her current pulse ox is 93%. CT of the chest was also done and the patient had no evidence of any pulmonary embolism. The patient had no filling defects. There was bilateral lower lobe opacities/atelectasis. There is additional few peripheral right upper lobe and lingular groundglass opacities that are minimal and there is also mucous plugging and a trace right-sided pleural effusion. There is also background COPD. Noted the patient is post ventilator dependent respiratory failure and the patient was extubated on 01/02/2025. The patient continued to have dysphagia following her extubation patient is currently NPO. No reported aspiration per nursing staff. Her antibiotic coverage has been switched to IV Unasyn and Rocephin has been discontinued. Remains on bronchodilators. Remains on IV Solu-Medrol. The white cell count from yesterday was 11.2. No labs are available from today. Obviously, her labs need to be repeated. Family is at the bedside. She is arousable and awake although she is quite weak and she seems to be quite debilitated. On 01/05/2025, the patient is being seen for a follow-up. The patient was initially seen on the medical floor and the patient was on 100% of the bed face mask and oxygen nasal cannula at 15 L. Pulse ox was 91%. The patient was lethargic, confused, and sluggishly responsive to verbal or painful stimulation. Noted, the patient was quite hypoxic. Most recent blood gas from this morning showed a pH of 7.6 with a PCO2 of 26 and PO2 of 52 on 100% nonrebreather facemask and oxygen high flow at 15 L. A follow-up chest x-ray was also done that showed small right-sided pleural effusion/atelectasis. Patchy retrocardiac opacity was again present. CT of the chest was also completed yesterday the patient has no evidence of any pulmonary embolism. There is evidence of bilateral lower lobe consolidation and atelectasis and possibly some mucous plugging. Trace right-sided pleural effusion was also noted. The patient was started on IV Unasyn accordingly. Based on ongoing hypoxemia and diminished level of consciousness, the patient was transferred to the intensive care unit. The patient was started on BiPAP. While being on a BiPAP of 12/5 with an FiO2 of 100%, repeat blood gas was done and the patient demonstrated a pH of 7.57 with a pCO2 28 and PO2 of 57. The patient had some difficulty in tolerating the BiPAP and the patient will be started on Precedex to maintain secondary to the BiPAP machine. The patient was given a triple-lumen catheter in the intensive care unit and this was inserted in the right IJ without any complications. No evidence of any pneumothorax post line insertion. Hemodynamically, remained stable. No significant hypotension. The patient was started on lactated Ringer at rate of 75 cc an hour. Antibiotic coverage remains IV Unasyn and Diflucan. Remains on bronchodilators. Remains on IV Solu-Medrol. Currently off diuretics. Remains n.p.o. as the patient had difficulty swallowing post extubation. On 01/06/2025, the patient is being seen in the intensive care unit. Extremely lethargic, weak, difficult to arouse, remains on a BiPAP with borderline oxygenation. The patient has been kept on a BiPAP at a pressure of 10 over 5 cm of water and FiO2 of 80%. The blood gas showed some improvement in oxygenation and the morning blood gas showed a pH of 7.33 with a pCO2 of 31 and pO2 of 89. The patient continues to moan and c occasionally cries for help. She states that she is unable to breathe. The exact cause for her underlying hypoxemia is not clear. Suspect mucous plugs. Noted I reviewed the chest x-ray from this morning and the patient has no clear airspace disease or consolidation. There is some right lower lobe airspace opacity. Otherwise, no significant abnormalities to explain the patient's hypoxemia. The same time, his CT of the chest was done on 01/04/2025 showed bilateral lower lobe consolidation and atelectasis. There was also a few peripheral right upper lobe and lingular groundglass opacities. Findings were trivial and there was no evidence of any pulmonary embolism. A trace right-sided pleural effusion was noted. Based on her critical and borderline respiratory status, I decided to go ahead and intubate the patient. I performed intubation the Glydo scope. I examined the upper airway structures and the vocal cords seem to be quite patent and open and there was no significant supraglottic narrowing of concern. The patient was intubated by #8 orotracheal tube via the glide scope. Following that, I performed a bronchoscopy and the patient did have some purulent mucous plugs in the lower lobes bilaterally, right more than left and total amount of purulent respiratory secretions were suctioned out was in order 50 cc. Meanwhile, the patient was kept on a mechanical ventilator. Currently, the patient is in assist-control mode at rate of 40, tidal volume of 450, FiO2 100% with a PEEP of 5. Blood gas showed a pH of 7.6 with a PCO2 of 23 and PO2 of 128. Postintubation chest x-ray shows no acute cardiopulmonary process. ET tube with distal tip 3.5 cm above the azael. NG tube was also in good location. Morning blood work showed a WBC count of 11.5, hemoglobin 10.7 and platelet count of 100. Sodium is at 136, potassium is at 3.5, BUN 28 and creatinine 0.4. Blood sugar is at 149. The patient is currently on IV Unasyn as a broad-spectrum antibiotics as the patient had a pneumococcal pneumonia at time of admission. The patient remains on DuoNeb nebulizer treatments [id number], IV Solu- Medrol, 40 mg every 12 hours. Patient is also on Diflucan for oropharyngeal candidiasis. Remains on Coreg, Lipitor and aspirin. On 01/07/2025, the patient is being seen for a follow-up. The patient remains intubated on a mechanical ventilator. On today's evaluation, the patient is sedated on propofol which is running at 60 mcg/kg/min. The patient remains also on assist-control mode rate of 14, tidal volume of 400, FiO2 of 70% with a PEEP of 5. The blood gas showed a pH of 7.44 with a [id number] and PO2 of 75. Chest x- ray findings are essentially unchanged and the patient continues to have some left basilar consolidation. Earlier CAT scan of the chest also showed bibasilar atelectasis and consolidations. The patient had positive sputum sample for strep pneumo. However, a bronchoscopy with therapeutic airway suctioning and mucous plug removal was done yesterday and another bronchoalveolar lavage of the right lower lobe was done. Results are still pending for now. Antibiotic coverage remains unchanged and the patient remains on IV Unasyn. The patient remains on lactated Ringer at rate of 75 cc an hour. Cardiac rhythm is sinus bradycardia. Fluid balance is +3.3 L over the past 24 hours and the patient will be started on enteral feeding for nutritional support. The labs from today showed a WBC count of 13.4, hemoglobin of 10.3 and a platelet count of 111. Sodium is at 135, potassium is at 4.2, BUN is 23 with a creatinine of 0.39. Serum bicarb is at 23. No other significant events overnight on this patient. The Coreg will be placed on hold as the patient is having some bradycardia. Remains on aspirin. Remains on Lipitor. Remains on Diflucan for oropharyngeal candidiasis. Seen today on 01/08/2025, patient remains in the ICU, intubated and mechanically ventilated, on assist-control rate of 14 tidal volume 400 FiO2 50% and PEEP of 8 patient is still requiring pressors norepinephrine at 0.08 mcg/kg/min, she is also on LR 75 cc/h propofol 60 mcg/kg/min vital HP at 10 cc/h. Remains on antibiotics for her streptococcal pneumonia/Unasyn. Patient is also on Diflucan for oropharyngeal candidiasis. Apparently the patient was extubated on 01/01, reintubated on 01/06 CODE STATUS has been changed to DNR CODE STATUS, however the issue of comfort care was not discussed or at least the family is undecided regarding her overall condition. Patient is sedated, chest x-ray was reviewed and it showed cardiomegaly, mild pulmonary vascular congestion, and right lower lobe consolidation/pneumonia. Labs reviewed WBC count is 11.5 hemoglobin 10.1 electrolytes are normal, renal profile is normal blood sugar is 167. Seen today on 01/09/2025, remains in the ICU, intubated and mechanically ventilated, on assist-control rate of 14 tidal volume 400 FiO2 50% PEEP of 8 I cut it down to 5 ABG showed a pO2 of 92 pCO2 34 pH of 7.5. Chest x-ray showed minimal congestive changes with pulmonary vascular congestion and left basilar atelectasis, patient is off propofol this morning, she is arousable, but she t ends to fall asleep easily and noted to have episodes of apnea. Hence I transitioned her ventilatory settings to pressure support of 10 with IMV rate, backup rate of 8, and I plan to give the patient at least a weaning trial with pressure support low IMV backup rate because of her apnea, and continue with CPAP. This will be done today. And if the patient tolerates this mode for few hours, may check ABG and decide whether the patient could be extubated. Clinically this is probably our window to extubate the patient, patient is no code, may have to discuss with the family whether the patient could be reintubated if she fails extubation, but apparently the CODE STATUS has been established as no code. Labs were reviewed today, WBC count is 13.3 hemoglobin 10.1 platelets are 123. Basic metabolic profile is normal BUN is 18 creatinine 0.38 Seen today on 01/10/2025, patient remains in the ICU, intubated and mechanically ventilated, patient is on assist-control rate of 14 tidal volume 400 FiO2 50% PEEP of 5 ABG showed a pO2 of 105 pCO2 37 pH of 7.51. Patient remains on Unasyn for her pneumococcal pneumonia she is also on fluconazole propofol is presently on hold this morning. She is on vital HP at 33 cc/h and LR at 75 cc/h. Patient was placed on Lasix 20 mg IV push twice daily. Patient is arousable in spite of being on propofol, seems to be generally weak, follows simple instructions WBC count is 9.8 hemoglobin 9.3, basic metabolic profile is normal renal profile is normal creatinine is normal blood sugar is 157, magnesium 1.8 chest x-ray showed cardiomegaly small left pleural effusion and bibasilar atelectasis versus infiltrates. Objective - Vital Signs Vital signs: Vital Signs Temp 98.1 F 01/10/25 12:00 Pulse 92 01/10/25 13:00 Resp 17 01/10/25 13:00 BP 89/72 01/10/25 12:15 Pulse Ox 93 L 01/10/25 13:00 FiO2 50 01/10/25 13:45 Intake & Output 01/09/25 01/10/25 01/10/25 18:59 06:59 18:59 Intake Total 8226.281 4843.370 1039.229 Output Total 2106 765 4741 Balance 758.521 953.370 -510.771 Weight 86.1 kg Intake: IV 1106 1076 736 0.9 120 140 140 Fluconazole in NaCl,Iso- 50 50 Osm 100 mg In Saline 1 50ml.bag @ 50 mls/hr IVPB DAILY [facility] Rx#:[id number] Lactated Ringers 1,000 ml 900 900 525 @ 75 mls/hr IV .[id number] [facility] Rx#:[id number] Pressure bag 36 36 21 Intake, IV Titration 167.521 144.370 12.229 Amount Ampicillin-Sulbactam 3 gm 100 In Sodium Chloride 0.9% 100 ml @ 200 mls/hr IVPB Q6HR [facility] Rx#:[id number] Magnesium Sulfate-D5w Pmx 100 1 gm In Dextrose/Water 1 100ml.bag @ 100 mls/hr IVPB ONCE ONE Rx#: [id number] Norepinephrine 8 mg In 11.426 12.229 Sodium Chloride 0.9% 250 ml @ 0.03 MCG/KG/MIN 4. 122 mls/hr IV .Q24H [facility] Rx#:[id number] propofoL 1,000 mg In 67.521 32.944 Empty Bag 1 bag @ 15 MCG/ KG/MIN 6.39 mls/hr IV . [id number] [facility] Rx#:[id number] Oral 330 Tube Feeding 160 393 231 Other 60 180 60 Output: Urine 6128 442 5678 Other: Voiding Method Indwelling Catheter Indwelling Catheter Indwelling Catheter ABP, PAP, CO, CI - Last Documented Arterial Blood Pressure 124/59 - Exam Physical exam revealed a 69-year-old female in no distress intubated mechanically ventilated Head: Atraumatic normocephalic HEENT: PERRLA EOMI, nonicteric no neck masses no JVD Chest crackles at the bases no rhonchi no wheezes Cardiac distant S1-S2, no S3 gallop, no murmur Abdomen soft nontender no megaly no rebound no guarding Extremities no clubbing edema or cyanosis Skin: No rashes Neurologic: Sleeping but arousable follows very simple instructions seems to be generally weak. Psychiatric: Normal mood affect and no mental status examination - Labs CBC & Chem 7: 01/10/25 05:01 01/10/25 05:01 Labs: Abnormal Lab Results - Last 24 Hours (Table) 01/09/25 01/09/25 01/10/25 Range/Units 17:55 22:49 05:01 RBC 2.91 L (4.10-5.20) 10*6/uL Hgb 9.3 L (12.0-15.0) g/dL Hct 27.7 L (37.2-46.3) % Plt Count 117 L (140-440) 10*3/uL Immature Gran # 0.67 H (0.00-0.04) 10*3/uL Neutrophils # (Manual) 9.11 H (1.3-7.7) k/uL Lymphocytes # (Manual) 0.29 L (1.0-4.8) k/uL Metamyelocytes # (Man) 0.10 H (0) k/uL ABG pH (7.35-7.45) ABG HCO3 (21-25) mmol/L ABG Total CO2 (19-24) mmol/L ABG O2 Saturation (94-97) % Hemoglobin (11.4-16.0) gm/dL Sodium (137-145) mmol/L Creatinine (0.52-1.04) mg/dL Glucose (74-99) mg/dL POC Glucose (mg/dL) 146 H 181 H (70-110) mg/dL Calcium (8.4-10.2) mg/dL 01/10/25 01/10/25 01/10/25 Range/Units 05:01 05:30 05:54 RBC (4.10-5.20) 10*6/uL Hgb (12.0-15.0) g/dL Hct (37.2-46.3) % Plt Count (140-440) 10*3/uL Immature Gran # (0.00-0.04) 10*3/uL Neutrophils # (Manual) (1.3-7.7) k/uL Lymphocytes # (Manual) (1.0-4.8) k/uL Metamyelocytes # (Man) (0) k/uL ABG pH 7.51 H (7.35-7.45) ABG HCO3 29 H (21-25) mmol/L ABG Total CO2 30 H (19-24) mmol/L ABG O2 Saturation 98.9 H (94-97) % Hemoglobin 10.1 L (11.4-16.0) gm/dL Sodium 132 L (137-145) mmol/L Creatinine 0.35 L (0.52-1.04) mg/dL Glucose 160 H (74-99) mg/dL POC Glucose (mg/dL) 171 H (70-110) mg/dL Calcium 7.5 L (8.4-10.2) mg/dL 01/10/25 Range/Units 11:21 RBC (4.10-5.20) 10*6/uL Hgb (12.0-15.0) g/dL Hct (37.2-46.3) % Plt Count (140-440) 10*3/uL Immature Gran # (0.00-0.04) 10*3/uL Neutrophils # (Manual) (1.3-7.7) k/uL Lymphocytes # (Manual) (1.0-4.8) k/uL Metamyelocytes # (Man) (0) k/uL ABG pH (7.35-7.45) ABG HCO3 (21-25) mmol/L ABG Total CO2 (19-24) mmol/L ABG O2 Saturation (94-97) % Hemoglobin (11.4-16.0) gm/dL Sodium (137-145) mmol/L Creatinine (0.52-1.04) mg/dL Glucose (74-99) mg/dL POC Glucose (mg/dL) 157 H (70-110) mg/dL Calcium (8.4-10.2) mg/dL Microbiology - Last 24 Hours (Table) 01/06/25 10:10 Gram Stain - Final Bronchoalviolar Lavage - Left Bronchial Washings Culture - Final Thelma albicans Assessment and Plan Assessment: Impression: Acute hypoxic respiratory failure secondary to pneumococcal pneumonia and severe cardiomyopathy with acute on chronic systolic congestive heart failure and underlying COPD. 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 Chronic dysphagia and failed swallow postextubation Oropharyngeal candidiasis History of GERD Rheumatoid arthritis Benign essential hypertension Obstructive sleep apnea syndrome Generalized anxiety disorder and depression Ex-smoker Recommendation: Continue ventilatory support, patient came so close to be extubated yesterday, however she developed intermittent episodes of apnea while she was on pressure support mode of mechanical ventilation and she had small IMV backup rate, patient also developed 1 episode of atrial fibrillation with RVR, she also had a bit of a coffee-ground material in the nasogastric tube and I held back on ext ubation. Patient will be given another trial of weaning today off propofol, may go back to pressure support and CPAP and possibly use an IMV backup rate. Continue antibiotics Continue diuretics Continue Diflucan Minimize use of sedatives if possible today. Continue statins Continue aspirin Continue GI DVT prophylaxis Continue nutritional support/enteral feeding Patient remains critically could not proceed to extubation yesterday for many reasons as noted above Critical care time is 34 minutes Prognosis is extremely poor and guarded Time with Patient: Greater than 30
[2025-01-10 18:00] LABS: Glucose,Whole Blood 225 mg/dL (70-110)
[2025-01-10 18:15] LABS: Glucose,Whole Blood 197 mg/dL (70-110)
[2025-01-10 23:23] LABS: Glucose,Whole Blood 163 mg/dL (70-110)
--- NOTE | 2025-01-10 23:41 | PN ---
PROGRESS NOTE DATE OF SERVICE: 01/10/2025 CHIEF COMPLAINT: Respiratory failure, pneumonitis. HISTORY OF PRESENT ILLNESS: This lady's condition is the same. She is on ventilator. Apparently, when sedation was withdrawn, she was not waking up and/or breathing on her own. She is putting out more urine. PHYSICAL EXAMINATION: GENERAL: She remains pale and on the ventilator. Breath sounds are heard bilaterally. ABDOMEN: Soft and there are no masses. IMPRESSION: 1. Respiratory failure. 2. Status post aspiration pneumonia. 3. History of carcinoma of the larynx. PLAN: The patient continues with ventilator support in the intensive care unit. MMODL / IJN: [id number] /
[2025-01-11 04:37] LABS: HCT 31.8 % (37.2-46.3); HGB 10.8 g/dL (12.0-15.0); MCH 32.0 pg (27.0-32.0); MCHC 34.0 g/dL (32.0-37.0); MCV 94.1 fL (80.0-97.0); Platelet Count 151 10*3/uL (140-440); RBC 3.38 10*6/uL (4.10-5.20); RDW 18.0 % (11.5-14.5); WBC 11.94 10*3/uL (4.50-10.00)
[2025-01-11 05:08] LABS: Metamyelocytes # (M) 0.36 k/uL (0); Monocytes # (M) 0.24 k/uL (0-1.0); Neutrophils # (M) 11.34 k/uL (1.3-7.7); Neutrophils % (M) 86 %; Total Cells Counted 100
[2025-01-11 05:09] LABS: ALT 48 U/L (4-34); AST 41 U/L (14-36); African American GFR (CKD) >90 (>60 ml/min/1.73 sqM); Albumin 2.3 g/dL (3.5-5.0); Alkaline Phosphatase 61 U/L (38-126); Anion Gap 3 mmol/L; Blood Urea Nitrogen 15 mg/dL (7-17); Calcium 7.8 mg/dL (8.4-10.2); Carbon Dioxide 32 mmol/L (22-30); Chloride 97 mmol/L (98-107); Glucose 128 mg/dL (74-99); Magnesium 1.9 mg/dL (1.6-2.3); Non-African American GFR(CKD) >90 (>60 ml/min/1.73 sqM); Potassium 3.6 mmol/L (3.5-5.1); Sodium 132 mmol/L (137-145); Total Protein 4.3 g/dL (6.3-8.2)
[2025-01-11] MEDS ORDERED: Potassium Replacement Protocol 1 EACH MISC MISCELLANE PRN (05:18)
[2025-01-11 05:30] LABS: ABG HCO3 31 mmol/L (21-25); ABG PCO2 37 mmHg (35-45); ABG PH 7.53 (7.35-7.45); ABG PO2 88 mmHg (83-108); ABG TCO2 32 mmol/L (19-24)
[2025-01-11] MEDS ORDERED: Magnesium Replacement Protocol 1 EACH MISC MISCELLANE PRN (05:43)
[2025-01-11 05:58] LABS: Glucose,Whole Blood 149 mg/dL (70-110)
[2025-01-11] MEDS: MAGNESIUM SULFATE-D5W PMX 1 GM in DEXTROSE/WATER 1 100ML.BAG IVPB ONE (05:58)
[2025-01-11] MEDS: POTASSIUM BICARBONATE/CIT AC 20 MEQ TABLET.EFF NG-TUBE SCH (05:58)
[2025-01-11 06:24] LABS: Allen Test Performed? No
--- NOTE | 2025-01-11 07:26 | XR ---
EXAMINATION TYPE: XR chest 1V portable DATE OF EXAM: 01/11/2025 5:26 AM COMPARISON: Multiple radiographs, with the most recent on 01/10/2025 TECHNIQUE: XR chest 1V portable Portable AP radiograph of the chest. CLINICAL INDICATION:Female, 69 years old with history of Mechanical ventilation; FINDINGS: Lungs/Pleura: Small bilateral pleural effusions with bibasilar airspace opacities. No pneumothorax. Pulmonary vascularity: Unremarkable. Heart/mediastinum: Cardiomediastinal silhouette is enlarged and stable. Atherosclerotic calcificatio ns are seen in the aorta. Three lead cardiac conduction device overlying the left hemithorax with jeferson d tips projecting over the right ventricle, right atrium and coronary sinus. Musculoskeletal: No acute osseous pathology. Other findings: None Lines/Tubes: Endotracheal tube with distal tip 3.1 cm above the azael Nasogastric tube with its distal tip and side-port projecting under the diaphragm. Right IJ central venous catheter with distal tip at the low SVC. IMPRESSION: 1. Cardiomegaly with small bilateral pleural effusions again. 2. Similar bibasilar patchy airspace opacities representing atelectasis versus infiltrates. 3. Stable support lines and tubes. [facility], , 01/11/2025 7:23 AM
[2025-01-11 11:27] LABS: Glucose,Whole Blood 179 mg/dL (70-110)
[2025-01-11 13:18] VITALS: BMI 31.9
--- NOTE | 2025-01-11 13:20 | P.PN ---
Subjective Progress Note Date: 01/11/25 69-year-old female who looks much older than her stated age, who apparently comes into the emergency department, December 25, brought in by EMS, because apparently she was found down on the floor. She apparently was going to the bathroom, and fell, but did not hurt herself. She believes her defibrillator, went off, but she was not sure. She is not sure if she lost consciousness according to the ER [facility]. She apparently denied any chest pain, or difficulty breathing in the emergency department. Apparently, the patient was evaluated by cardiology, and, apparently there was an issue with the defibrillator. Anyway, the patient was all set to be discharged, but apparently last night, and then today, the patient developed some increasing shortness of breath, and, saturations are quite low, and the patient required more more oxygen, to the point where she was on Airvo. We were asked to see the patient because of her respiratory decline. Chest x-ray appears to show possible minimal infiltrate at the right lung base, she may have aspirated. She apparently has a history of throat cancer, undergoing both chemo and radiation therapy. The status of that is not known. In addition, according to the chart, she has a history of COPD, acid reflux disease, hypertension, rheumatoid arthritis, sleep apnea, hypothyroidism, among other things. She has had a heart catheterization, pacemaker, and AICD placement. We attempted to talk to the family about CODE STATUS. They were not sure of her CODE STATUS although in the chart, apparently she was not to be intubated. The was unsure. The daughter could not be reached. A blood gas was done, showing a PO2 of 39, PCO2 of 31, and a pH of 7.5 5. The patient was transferred to the intensive care unit. The blood gas was done on 100% oxygen. White count was 13.2, hemoglobin 15.7, hematocrit 43.1, and platelet count 189,000. Sodium was 127, potassium 4.7, chlorides 90, CO2 23, anion gap 14, BUN 39, creatinine 0.91. Glucose was 143. N-terminal proBNP was 1580. TSH was quite high at 15.1. Home medications included levothyroxine, which the patient may or may not be taking. Chest x-ray from earlier, shows a possible minimal infiltrate, right lower lobe. Apparently the patient has been evaluated by speech pathology. 01/11. Dr. Chilel took over care from Dr. Emmanuel. Patient currently on mechanical ventilation, currently on IV Unasyn and Diflucan. Patient also getting IV Lasix 20 mg every 12. REVIEW OF SYSTEMS: Review of system cannot be obtained patient intubated PHYSICAL EXAMINATION: GENERAL: The patient is intubated HEENT: Pupils are round and equally reacting to light. EOMI. No scleral icterus. No conjunctival pallor. Normocephalic, atraumatic. No pharyngeal erythema. No thyromegaly. CARDIOVASCULAR: S1 and S2 present. No murmurs, rubs, or gallops. PULMONARY: Coarse breath sounds bilaterally no wheeze ABDOMEN: Soft, nontender, nondistended, normoactive bowel sounds. No palpable organomegaly. MUSCULOSKELETAL: No joint swelling or deformity. EXTREMITIES: No cyanosis, clubbing, or pedal edema. NEUROLOGICAL: Intubated SKIN: No rashes. Assessment and plan Acute hypoxic respiratory failure secondary to pneumococcal pneumonia and severe cardiomyopathy with acute on chronic systolic congestive heart failure and underlying COPD. 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 Continue same treatment. Continue with symptomatic treatment. Resume home medication. Monitor labs and vitals. DVT and GI prophylaxis. Further recommendations as per clinical course of the patient Dictation was produced using [employer] dictation software. please excuse any grammatical, word or spelling errors. Objective - Vital Signs Vital signs: Vital Signs Temp 98.0 F 01/11/25 12:00 Pulse 86 01/11/25 13:00 Resp 14 01/11/25 13:00 BP 96/71 01/11/25 12:45 Pulse Ox 97 01/11/25 13:00 FiO2 60 01/11/25 12:12 Intake & Output 01/10/25 01/11/25 01/11/25 18:59 06:59 18:59 Intake Total 5802.235 6588 952 Output Total 2585 1025 1745 Balance -862.711 116 -793 Weight 84.4 kg Intake: IV 1174 778 661 0.9 260 220 140 Fluconazole in NaCl,Iso- 50 50 Osm 100 mg In Saline 1 50ml.bag @ 50 mls/hr IVPB DAILY [facility] Rx#:[id number] Lactated Ringers 1,000 ml 825 525 450 @ 75 mls/hr IV .[id number] [facility] Rx#:[id number] Pressure bag 39 33 21 Intake, IV Titration 29.289 Amount Norepinephrine 8 mg In 29.289 Sodium Chloride 0.9% 250 ml @ 0.03 MCG/KG/MIN 4. 122 mls/hr IV .Q24H [facility] Rx#:[id number] Tube Feeding 429 363 231 Other 90 60 Output: Urine 2585 1025 1745 Other: Voiding Method Indwelling Catheter Indwelling Catheter Indwelling Catheter ABP, PAP, CO, CI - Last Documented Arterial Blood Pressure 108/54 - Labs CBC & Chem 7: 01/11/25 03:50 01/11/25 03:50 Labs: Abnormal Lab Results - Last 24 Hours (Table) 01/10/25 01/10/25 01/10/25 Range/Units 17:59 18:13 23:21 WBC (4.50-10.00) 10*3/uL RBC (4.10-5.20) 10*6/uL Hgb (12.0-15.0) g/dL Hct (37.2-46.3) % Immature Gran # (0.00-0.04) 10*3/uL Neutrophils # (Manual) (1.3-7.7) k/uL Metamyelocytes # (Man) (0) k/uL ABG pH (7.35-7.45) ABG HCO3 (21-25) mmol/L ABG Total CO2 (19-24) mmol/L ABG O2 Saturation (94-97) % Sodium (137-145) mmol/L Chloride (98-107) mmol/L Carbon Dioxide (22-30) mmol/L Creatinine (0.52-1.04) mg/dL Glucose (74-99) mg/dL POC Glucose (mg/dL) 225 H 197 H 163 H (70-110) mg/dL Calcium (8.4-10.2) mg/dL AST (14-36) U/L ALT (4-34) U/L Total Protein (6.3-8.2) g/dL Albumin (3.5-5.0) g/dL 01/11/25 01/11/25 01/11/25 Range/Units 03:50 03:50 05:25 WBC 11.94 H (4.50-10.00) 10*3/uL RBC 3.38 L (4.10-5.20) 10*6/uL Hgb 10.8 L (12.0-15.0) g/dL Hct 31.8 L (37.2-46.3) % Immature Gran # 0.78 H (0.00-0.04) 10*3/uL Neutrophils # (Manual) 11.34 H (1.3-7.7) k/uL Metamyelocytes # (Man) 0.36 H (0) k/uL ABG pH 7.53 H (7.35-7.45) ABG HCO3 31 H (21-25) mmol/L ABG Total CO2 32 H (19-24) mmol/L ABG O2 Saturation 98.0 H (94-97) % Sodium 132 L (137-145) mmol/L Chloride 97 L (98-107) mmol/L Carbon Dioxide 32 H (22-30) mmol/L Creatinine 0.35 L (0.52-1.04) mg/dL Glucose 128 H (74-99) mg/dL POC Glucose (mg/dL) (70-110) mg/dL Calcium 7.8 L (8.4-10.2) mg/dL AST 41 H (14-36) U/L ALT 48 H (4-34) U/L Total Protein 4.3 L (6.3-8.2) g/dL Albumin 2.3 L (3.5-5.0) g/dL 01/11/25 01/11/25 Range/Units 05:56 11:25 WBC (4.50-10.00) 10*3/uL RBC (4.10-5.20) 10*6/uL Hgb (12.0-15.0) g/dL Hct (37.2-46.3) % Immature Gran # (0.00-0.04) 10*3/uL Neutrophils # (Manual) (1.3-7.7) k/uL Metamyelocytes # (Man) (0) k/uL ABG pH (7.35-7.45) ABG HCO3 (21-25) mmol/L ABG Total CO2 (19-24) mmol/L ABG O2 Saturation (94-97) % Sodium (137-145) mmol/L Chloride (98-107) mmol/L Carbon Dioxide (22-30) mmol/L Creatinine (0.52-1.04) mg/dL Glucose (74-99) mg/dL POC Glucose (mg/dL) 149 H 179 H (70-110) mg/dL Calcium (8.4-10.2) mg/dL AST (14-36) U/L ALT (4-34) U/L Total Protein (6.3-8.2) g/dL Albumin (3.5-5.0) g/dL
--- NOTE | 2025-01-11 14:21 | P.PN ---
Subjective Progress Note Date: 01/11/25 Principal diagnosis: Acute hypoxic respiratory failure secondary to pneumococcal pneumonia involving left lower lobe 69-year-old female who looks much older than her stated age, who apparently comes into the emergency department, December 25, brought in by EMS, because apparently she was found down on the floor. She apparently was going to the bathroom, and fell, but did not hurt herself. She believes her defibrillator, went off, but she was not sure. She is not sure if she lost consciousness according to the [facility]. She apparently denied any chest pain, or difficulty breathing in the emergency department. Apparently, the patient was evaluated by cardiology, and, apparently there was an issue with the defibrillator. Anyway, the patient was all set to be discharged, but apparently last night, and then today, the patient developed some increasing shortness of breath, and, saturations are quite low, and the patient required more more oxygen, to the point where she was on Airvo. We were asked to see the patient because of her respiratory decline. Chest x-ray appears to show possible minimal infiltrate at the right lung base, she may have aspirated. She apparently has a history of throat cancer, undergoing both chemo and radiation therapy. The status of that is not known. In addition, according to the chart, she has a history of COPD, acid reflux disease, hypertension, rheumatoid arthritis, sleep apnea, hypothyroidism, among other things. She has had a heart catheterization, pacemaker, and AICD placement. We attempted to talk to the family about CODE STATUS. They were not sure of her CODE STATUS although in the chart, apparently she was not to be intubated. The was unsure. The daughter could not be reached. A blood gas was done, showing a PO2 of 39, PCO2 of 31, and a pH of 7.55. The patient was transferred to the intensive care unit. The blood gas was done on 100% oxygen. White count was 13.2, hemoglobin 15.7, hematocrit 43. 1, and platelet count 189,000. Sodium was 127, potassium 4.7, chlorides 90, CO2 23, anion gap 14, BUN 39, creatinine 0.91. Glucose was 143. N-terminal proBNP was 1580. TSH was quite high at 15.1. Home medications included levothyroxine, which the patient may or may not be taking. Chest x-ray from earlier, shows a possible minimal infiltrate, right lower lobe. Apparently the patient has been evaluated by speech pathology. Progress note dated December 30, 2024. 69-year-old female who looks much older than her stated age. We saw her yesterday in consultation. Patient developed respiratory failure, presumably secondary to aspiration. Patient is currently on the ventilator. She is on vol ume assist-control, rate 14, tidal volume 450, FiO2 80%, PEEP of 10. Blood gases on 100% show pO2 of 119, pCO2 of 45, pH of 7.35. Art line and central line were placed yesterday. She is on propofol at 40 mcg/kg/min, norepinephrine at 2.8 mcg/min, and saline at 10 cc an hour. She is getting vital high-protein at 10 cc an hour. She continues on azithromycin and Rocephin for aspiration pneumonia. White count of 15.3, hemoglobin 13.9, hematocrit 39.4, platelet count 161,000. Sodium 129, potassium 3.7, chloride 94, CO2 25, BUN 38, creatinine 0.98. Glucose is 186. Calcium 8.2. Chest x-ray shows a small right-sided pleural effusion, and some minimal infiltrate, at the right lung base. Progress note dated December 31, 2024. 69-year-old female seen today in room 262. She remains on volume assist- control, rate 14, tidal volume 450, FiO2 60%, PEEP of 10. Gases on 80% show pO2 of 137, PCO2 of 40, pH of 7.49. She is getting propofol at 40 mcg/kg/min, saline at 15 cc an hour, and vital high-protein at 10 cc, with a goal of 38. The patient is currently on azithromycin and Rocephin. Vancomycin is discontinued. Sputum was positive for Streptococcus pneumoniae. White count 13.6, hemoglobin 12.8, hematocrit 35.7, platelet count 137,000. Sodium 128, potassium 4, chloride 90, CO2 29, BUN 32, creatinine 0.76. Glucose 147. Calcium 8.1. Chest x-ray continues to show bibasilar infiltrates or atelectasis. On 01/01/2025, the patient is being seen for a follow-up. This morning, the p atient has been weaned off the sedation and the patient is arousable and the patient is making good eye contact and following simple commands and answering questions. The patient is on assist-control mode of mechanical ventilation at rate of 14, tidal volume of 450, FiO2 of 50% and a PEEP of 10. The blood gas showed a pH of 7.55 with a [id number] and PO284. The chest x-ray from today shows COPD with some mild patchy atelectatic changes in the left lung base. Hemodynamically stable. White cell count of 13.9, hemothirteen 0.2 and a platelet count of 143. Sodium is at 130 with a potassium level of 3.8, bicarbonate 32, BUN 28 with a creatinine of 0.6. The patient had a sputum sample that was positive for Streptococcus pneumonia and the patient remains on IV Rocephin. The patient remains on bronchodilators and the patient is currently on DuoNeb nebulized treatments [id number]. A bedside cuff leak test was done and the patient has adequate air movement around the ET tube and the patient is currently intubated with a #7 orotracheal tube and this intubation was done due to concerns of her previous history of throat cancer. Tube feeds are currently on hold, possible extubation today based on her progress. On 01/02/2025, the patient is being seen for a follow-up. The patient has been weaned off the mechanical ventilator and the patient was extubated and the patient is currently on 2 L of oxygen by nasal cannula. The patient is having some difficulty in swallowing. The cough is weak. No significant respiratory distress. She failed a bedside swallow and the patient will have an official swallow evaluation. Meanwhile, the patient has been kept NPO. She remains on the lactated Ringer at rate of 75 cc an hour. She was also noted to have oropharyngeal candidiasis. She is awake and alert and communicating. The chest x-ray from this morning shows COPD with slightly worsening patchy retrocardiac atelectasis. The patient's WBC count is 11.2 with a hemoglobin of 11.7 and a platelet count of 102. BUN is 23 with a creatinine 0.6. Sodium level is 134 and a potassium level is at 3.5. The patient remains on IV Rocephin 2 g every 24 hours as the patient sputum sample was positive for strep pneumo. The patient remains on DuoNeb treatments [id number]. The patient is on Coreg 6.25 mg p.o. twice a day, Synthroid 88 mcg p.o. daily, and Lipitor 80 mg p.o. d aily. She is also on aspirin. There is generalized profound weakness in all 4 extremities. Nevertheless, the patient is able to move all 4 extremities and she is following simple commands. Coffee mechanism remains weak. 01/03/2025, the patient is being seen for a follow-up. The patient was pandya sferred out of the intensive care unit postextubation the patient is currently on 2 L of oxygen by nasal cannula. She continues to have some limited congested cough. No significant sputum production. No signs of any significant respiratory distress. She remains profoundly weak and debilitated. She is also having difficulty in swallowing and speech pathology has been involved in the care of the patient is going to undergo a modified barium swallow. The patient also had oropharyngeal candidiasis and the patient is currently taking IV Diflucan. She remains on IV Rocephin regarding a pneumococcal pneumonia with secondary COPD exacerbation. Most recent chest x-ray from 01/02/2025 shows COPD and patchy left lower lobe pulmonary infiltrates/atelectasis/consolidation. The white second 11.2 with a hemoglobin 12.1 and platelet count of 105. Sodium level is at 133, BUN 28 with a creatinine of 0.4. Bicarb is at 21. Glucose is 157. On 01/04/2025, the patient had a coughing COPD. Noted this patient is post ventilator dependent respiratory failure and a pneumococcal pneumonia. The noelle ent remains on IV Rocephin. Episode and following that the patient started having hypoxemia. The patient was brought up from 2 L up to 15 L of nasal cannula. Based on that, further workup was initiated. The patient was given a blood gas that showed acute respiratory alkalosis with a pH of 7.55 and a PCO2 of 29 and PO2 of 33. Subsequently, the patient was placed on 13 L and her current pulse ox is 93%. CT of the chest was also done and the patient had no evidence of any pulmonary embolism. The patient had no filling defects. There was bilateral lower lobe opacities/atelectasis. There is additional few peripheral right upper lobe and lingular groundglass opacities that are minimal and there is also mucous plugging and a trace right-sided pleural effusion. There is also background COPD. Noted the patient is post ventilator dependent respiratory failure and the patient was extubated on 01/02/2025. The patient continued to have dysphagia following her extubation patient is currently NPO. No reported aspiration per nursing staff. Her antibiotic coverage has been switched to IV Unasyn and Rocephin has been discontinued. Remains on bronchodilators. Remains on IV Solu-Medrol. The white cell count from yesterday was 11.2. No labs are available from today. Obviously, her labs need to be repeated. Family is at the bedside. She is arousable and awake although she is quite weak and she seems to be quite debilitated. On 01/05/2025, the patient is being seen for a follow-up. The patient was initially seen on the medical floor and the patient was on 100% of the bed face mask and oxygen nasal cannula at 15 L. Pulse ox was 91%. The patient was lethargic, confused, and sluggishly responsive to verbal or painful stimulation. Noted, the patient was quite hypoxic. Most recent blood gas from this morning showed a pH of 7.6 with a PCO2 of 26 and PO2 of 52 on 100% nonrebreather facemask and oxygen high flow at 15 L. A follow-up chest x-ray was also done that showed small right-sided pleural effusion/atelectasis. Patchy retrocardiac opacity was again present. CT of the chest was also completed yesterday the patient has no evidence of any pulmonary embolism. There is evidence of bilateral lower lobe consolidation and atelectasis and possibly some mucous plugging. Trace right-sided pleural effusion was also noted. The patient was started on IV Unasyn accordingly. Based on ongoing hypoxemia and diminished level of consciousness, the patient was transferred to the intensive care unit. The patient was started on BiPAP. While being on a BiPAP of 12/5 with an FiO2 of 100%, repeat blood gas was done and the patient demonstrated a pH of 7.57 with a pCO2 28 and PO2 of 57. The patient had some difficulty in tolerating the BiPAP and the patient will be started on Precedex to maintain secondary to the BiPAP machine. The patient was given a triple-lumen catheter in the intensive care unit and this was inserted in the right IJ without any complications. No evidence of any pneumothorax post line insertion. Hemodynamically, remained stable. No significant hypotension. The patient was started on lactated Ringer at rate of 75 cc an hour. Antibiotic coverage remains IV Unasyn and Diflucan. Remains on bronchodilators. Remains on IV Solu-Medrol. Currently off diuretics. Remains n.p.o. as the patient had difficulty swallowing post extubation. On 01/06/2025, the patient is being seen in the intensive care unit. Extremely lethargic, weak, difficult to arouse, remains on a BiPAP with borderline oxygenation. The patient has been kept on a BiPAP at a pressure of 10 over 5 cm of water and FiO2 of 80%. The blood gas showed some improvement in oxygenation and the morning blood gas showed a pH of 7.33 with a pCO2 of 31 and pO2 of 89. The patient continues to moan and c occasionally cries for help. She states that she is unable to breathe. The exact cause for her underlying hypoxemia is not clear. Suspect mucous plugs. Noted I reviewed the chest x-ray from this morning and the patient has no clear airspace disease or consolidation. There is some right lower lobe airspace opacity. Otherwise, no significant abnormalities to explain the patient's hypoxemia. The same time, his CT of the chest was done on 01/04/2025 showed bilateral lower lobe consolidation and atelectasis. There was also a few peripheral right upper lobe and lingular groundglass opacities. Findings were trivial and there was no evidence of any pulmonary embolism. A trace right-sided pleural effusion was noted. Based on her critical and borderline respiratory status, I decided to go ahead and intubate the patient. I performed intubation the Glydo scope. I examined the upper airway structures and the vocal cords seem to be quite patent and open and there was no significant supraglottic narrowing of concern. The patient was intubated by #8 orotracheal tube via the glide scope. Following that, I performed a bronchoscopy and the patient did have some purulent mucous plugs in the lower lobes bilaterally, right more than left and total amount of purulent respiratory secretions were suctioned out was in order 50 cc. Meanwhile, the patient was kept on a mechanical ventilator. Currently, the patient is in assist-control mode at rate of 40, tidal volume of 450, FiO2 100% with a PEEP of 5. Blood gas showed a pH of 7.6 with a PCO2 of 23 and PO2 of 128. Postintubation chest x-ray shows no acute cardiopulmonary process. ET tube with distal tip 3.5 cm above the azael. NG tube was also in good location. Morning blood work showed a WBC count of 11.5, hemoglobin 10.7 and platelet count of 100. Sodium is at 136, potassium is at 3.5, BUN 28 and creatinine 0.4. Blood sugar is at 149. The patient is currently on IV Unasyn as a broad-spectrum antibiotics as the patient had a pneumococcal pneumonia at time of admission. The patient remains on DuoNeb nebulizer treatments [id number], IV Solu- Medrol, 40 mg every 12 hours. Patient is also on Diflucan for oropharyngeal candidiasis. Remains on Coreg, Lipitor and aspirin. On 01/07/2025, the patient is being seen for a follow-up. The patient remains intubated on a mechanical ventilator. On today's evaluation, the patient is sedated on propofol which is running at 60 mcg/kg/min. The patient remains also on assist-control mode rate of 14, tidal volume of 400, FiO2 of 70% with a PEEP of 5. The blood gas showed a pH of 7.44 with a [id number] and PO2 of 75. Chest x- ray findings are essentially unchanged and the patient continues to have some left basilar consolidation. Earlier CAT scan of the chest also showed bibasilar atelectasis and consolidations. The patient had positive sputum sample for strep pneumo. However, a bronchoscopy with therapeutic airway suctioning and mucous plug removal was done yesterday and another bronchoalveolar lavage of the right lower lobe was done. Results are still pending for now. Antibiotic coverage remains unchanged and the patient remains on IV Unasyn. The patient remains on lactated Ringer at rate of 75 cc an hour. Cardiac rhythm is sinus bradycardia. Fluid balance is +3.3 L over the past 24 hours and the patient will be started on enteral feeding for nutritional support. The labs from today showed a WBC count of 13.4, hemoglobin of 10.3 and a platelet count of 111. Sodium is at 135, potassium is at 4.2, BUN is 23 with a creatinine of 0.39. Serum bicarb is at 23. No other significant events overnight on this patient. The Coreg will be placed on hold as the patient is having some bradycardia. Remains on aspirin. Remains on Lipitor. Remains on Diflucan for oropharyngeal candidiasis. Seen today on 01/08/2025, patient remains in the ICU, intubated and mechanically ventilated, on assist-control rate of 14 tidal volume 400 FiO2 50% and PEEP of 8 patient is still requiring pressors norepinephrine at 0.08 mcg/kg/min, she is also on LR 75 cc/h propofol 60 mcg/kg/min vital HP at 10 cc/h. Remains on antibiotics for her streptococcal pneumonia/Unasyn. Patient is also on Diflucan for oropharyngeal candidiasis. Apparently the patient was extubated on 01/01, reintubated on 01/06 CODE STATUS has been changed to DNR CODE STATUS, however the issue of comfort care was not discussed or at least the family is undecided regarding her overall condition. Patient is sedated, chest x-ray was reviewed and it showed cardiomegaly, mild pulmonary vascular congestion, and right lower lobe consolidation/pneumonia. Labs reviewed WBC count is 11.5 hemoglobin 10.1 electrolytes are normal, renal profile is normal blood sugar is 167. Seen today on 01/09/2025, remains in the ICU, intubated and mechanically ventilated, on assist-control rate of 14 tidal volume 400 FiO2 50% PEEP of 8 I cut it down to 5 ABG showed a pO2 of 92 pCO2 34 pH of 7.5. Chest x-ray showed minimal congestive changes with pulmonary vascular congestion and left basilar atelectasis, patient is off propofol this morning, she is arousable, but she t ends to fall asleep easily and noted to have episodes of apnea. Hence I transitioned her ventilatory settings to pressure support of 10 with IMV rate, backup rate of 8, and I plan to give the patient at least a weaning trial with pressure support low IMV backup rate because of her apnea, and continue with CPAP. This will be done today. And if the patient tolerates this mode for few hours, may check ABG and decide whether the patient could be extubated. Clinically this is probably our window to extubate the patient, patient is no code, may have to discuss with the family whether the patient could be reintubated if she fails extubation, but apparently the CODE STATUS has been established as no code. Labs were reviewed today, WBC count is 13.3 hemoglobin 10.1 platelets are 123. Basic metabolic profile is normal BUN is 18 creatinine 0.38 Seen today on 01/10/2025, patient remains in the ICU, intubated and mechanically ventilated, patient is on assist-control rate of 14 tidal volume 400 FiO2 50% PEEP of 5 ABG showed a pO2 of 105 pCO2 37 pH of 7.51. Patient remains on Unasyn for her pneumococcal pneumonia she is also on fluconazole propofol is presently on hold this morning. She is on vital HP at 33 cc/h and LR at 75 cc/h. Patient was placed on Lasix 20 mg IV push twice daily. Patient is arousable in spite of being on propofol, seems to be generally weak, follows simple instructions WBC count is 9.8 hemoglobin 9.3, basic metabolic profile is normal renal profile is normal creatinine is normal blood sugar is 157, magnesium 1.8 chest x-ray showed cardiomegaly small left pleural effusion and bibasilar atelectasis versus infiltrates. Patient was seen today on 02/07/2025, remains in the ICU intubated and mechanically ventilated, patient is off sedation, she is quite calm, arousable but lethargic. On assist-control rate of 14 tidal volume 400 FiO2 had to be increased last night to 70% today down to 60% I increased PEEP to 8. ABG this morning showed a pO2 of 88 pCO2 37 pH of 7.53 and this was on 70% FiO2. Patient is on vital HP at 33 cc/h IV fluid at 75 cc/h in the form of LR, not much has changed over the last 24 hours except patient developed some atelectasis and mucous plugging and had to be suctioned her O2 saturation dropped down, chest x- ray showed mostly bibasilar atelectasis left more so than right, WBC count is 11.9 hemoglobin 10.8 platelets 151. Basic metabolic profile is normal, renal profile is normal. Objective - Vital Signs Vital signs: Vital Signs Temp 98.0 F 01/11/25 12:00 Pulse 123 H 01/11/25 14:00 Resp 14 01/11/25 14:00 BP 108/64 01/11/25 13:45 Pulse Ox 99 01/11/25 14:00 FiO2 60 01/11/25 12:12 Intake & Output 01/10/25 01/11/25 01/11/25 18:59 06:59 18:59 Intake Total 0314.336 3540 1183 Output Total 2585 1025 1820 Balance -862.711 116 -637 Weight 84.4 kg 84.4 kg Intake: IV 1174 778 759 0.9 260 220 160 Fluconazole in NaCl,Iso- 50 50 Osm 100 mg In Saline 1 50ml.bag @ 50 mls/hr IVPB DAILY [facility] Rx#:[id number] Lactated Ringers 1,000 ml 825 525 525 @ 75 mls/hr IV .[id number] [facility] Rx#:[id number] Pressure bag 39 33 24 Intake, IV Titration 29.289 100 Amount Ampicillin-Sulbactam 3 gm 100 In Sodium Chloride 0.9% 100 ml @ 200 mls/hr IVPB Q6HR [facility] Rx#:[id number] Norepinephrine 8 mg In 29.289 Sodium Chloride 0.9% 250 ml @ 0.03 MCG/KG/MIN 4. 122 mls/hr IV .Q24H [facility] Rx#:[id number] Tube Feeding 429 363 264 Other 90 60 Output: Urine 2585 1025 1820 Other: Voiding Method Indwelling Catheter Indwelling Catheter Indwelling Catheter ABP, PAP, CO, CI - Last Documented Arterial Blood Pressure 136/77 - Exam Physical exam revealed a 69-year-old female in no distress intubated mechanically ventilated Head: Atraumatic normocephalic HEENT: PERRLA EOMI, nonicteric no neck masses no JVD Chest crackles at the bases no rhonchi no wheezes Cardiac distant S1-S2, no S3 gallop, no murmur Abdomen soft nontender no megaly no rebound no guarding Extremities no clubbing edema or cyanosis Skin: No rashes Neurologic: Sleeping but arousable follows very simple instructions seems to be generally weak. Psychiatric: Normal mood affect and no mental status examination - Labs CBC & Chem 7: 01/11/25 03:50 01/11/25 03:50 Labs: Abnormal Lab Results - Last 24 Hours (Table) 01/10/25 01/10/25 01/10/25 Range/Units 17:59 18:13 23:21 WBC (4.50-10.00) 10*3/uL RBC (4.10-5.20) 10*6/uL Hgb (12.0-15.0) g/dL Hct (37.2-46.3) % Immature Gran # (0.00-0.04) 10*3/uL Neutrophils # (Manual) (1.3-7.7) k/uL Metamyelocytes # (Man) (0) k/uL ABG pH (7.35-7.45) ABG HCO3 (21-25) mmol/L ABG Total CO2 (19-24) mmol/L ABG O2 Saturation (94-97) % Sodium (137-145) mmol/L Chloride (98-107) mmol/L Carbon Dioxide (22-30) mmol/L Creatinine (0.52-1.04) mg/dL Glucose (74-99) mg/dL POC Glucose (mg/dL) 225 H 197 H 163 H (70-110) mg/dL Calcium (8.4-10.2) mg/dL AST (14-36) U/L ALT (4-34) U/L Total Protein (6.3-8.2) g/dL Albumin (3.5-5.0) g/dL 01/11/25 01/11/25 01/11/25 Range/Units 03:50 03:50 05:25 WBC 11.94 H (4.50-10.00) 10*3/uL RBC 3.38 L (4.10-5.20) 10*6/uL Hgb 10.8 L (12.0-15.0) g/dL Hct 31.8 L (37.2-46.3) % Immature Gran # 0.78 H (0.00-0.04) 10*3/uL Neutrophils # (Manual) 11.34 H (1.3-7.7) k/uL Metamyelocytes # (Man) 0.36 H (0) k/uL ABG pH 7.53 H (7.35-7.45) ABG HCO3 31 H (21-25) mmol/L ABG Total CO2 32 H (19-24) mmol/L ABG O2 Saturation 98.0 H (94-97) % Sodium 132 L (137-145) mmol/L Chloride 97 L (98-107) mmol/L Carbon Dioxide 32 H (22-30) mmol/L Creatinine 0.35 L (0.52-1.04) mg/dL Glucose 128 H (74-99) mg/dL POC Glucose (mg/dL) (70-110) mg/dL Calcium 7.8 L (8.4-10.2) mg/dL AST 41 H (14-36) U/L ALT 48 H (4-34) U/L Total Protein 4.3 L (6.3-8.2) g/dL Albumin 2.3 L (3.5-5.0) g/dL 01/11/25 01/11/25 Range/Units 05:56 11:25 WBC (4.50-10.00) 10*3/uL RBC (4.10-5.20) 10*6/uL Hgb (12.0-15.0) g/dL Hct (37.2-46.3) % Immature Gran # (0.00-0.04) 10*3/uL Neutrophils # (Manual) (1.3-7.7) k/uL Metamyelocytes # (Man) (0) k/uL ABG pH (7.35-7.45) ABG HCO3 (21-25) mmol/L ABG Total CO2 (19-24) mmol/L ABG O2 Saturation (94-97) % Sodium (137-145) mmol/L Chloride (98-107) mmol/L Carbon Dioxide (22-30) mmol/L Creatinine (0.52-1.04) mg/dL Glucose (74-99) mg/dL POC Glucose (mg/dL) 149 H 179 H (70-110) mg/dL Calcium (8.4-10.2) mg/dL AST (14-36) U/L ALT (4-34) U/L Total Protein (6.3-8.2) g/dL Albumin (3.5-5.0) g/dL Assessment and Plan Assessment: Impression: Acute hypoxic respiratory failure secondary to pneumococcal pneumonia and severe cardiomyopathy with acute on chronic systolic congestive heart failure and underlying COPD. 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 Continue antibiotics Continue diuretics Continue Diflucan Continue to minimize sedation and narcotics as much as possible Continue to daily assess mental status Continue statins Continue aspirin Continue GI DVT prophylaxis Continue nutritional support/enteral feeding At this point in time the patient is not ready to be extubated, may have to d iscuss with the family to consider comfort care measures or arrange for tracheostomy and PEG tube placement next week. Critical care time is 32 minutes Prognosis is extremely poor and guarded Time with Patient: Greater than 30
[2025-01-11 17:33] LABS: Glucose,Whole Blood 186 mg/dL (70-110)
--- NOTE | 2025-01-11 22:03 | P.PN ---
Subjective Progress Note Date: 01/11/25 Principal diagnosis: Reason for follow-up is pneumonia Patient is a 69-year-old female with a past medical history significant for hypertension rheumatoid arthritis reflux COPD did have history of AICD anxiety depression, history of throat cancer on chemoradiation initially presented to hospital after repeated have a fall subsequent did have a worsening respiratory status requiring intubation admission in the ICU there was concern for pneumonia sputum with strep pneumo prompted this consultation On today's evaluation that is 01/11/2025,the patient remains to be intubated on the vent and has been afebrile, patient is currently on 60% FiO2 no significant purulent secretion through the day or any other changes reported by nursing staff. Patient white count is 11.94, creatinine is 0.35 BAL culture with a Thelma chest x-ray this morning cardiomegaly with small effusion bibasilar patchy airspace opacities Objective - Vital Signs Vital signs: Vital Signs Temp 97.7 F 01/11/25 16:00 Pulse 87 01/11/25 20:12 Resp 16 01/11/25 19:00 BP 88/69 01/11/25 18:45 Pulse Ox 99 01/11/25 19:00 FiO2 60 01/11/25 20:11 Intake & Output 01/11/25 01/11/25 01/12/25 06:59 18:59 06:59 Intake Total 1141 2263 Output Total 1025 2155 Balance 116 108 Weight 84.4 kg 84.4 kg Intake: IV 778 1249 0.9 220 260 Fluconazole in NaCl,Iso- 50 Osm 100 mg In Saline 1 50ml.bag @ 50 mls/hr IVPB DAILY [facility] Rx#:[id number] Lactated Ringers 1,000 ml 525 900 @ 75 mls/hr IV .[id number] [facility] Rx#:[id number] Pressure bag 33 39 Intake, IV Titration 100 Amount Ampicillin-Sulbactam 3 gm 100 In Sodium Chloride 0.9% 100 ml @ 200 mls/hr IVPB Q6HR [facility] Rx#:[id number] Oral 360 Tube Feeding 363 464 Other 90 Output: Urine 1025 2155 Other: Voiding Method Indwelling Catheter Indwelling Catheter ABP, PAP, CO, CI - Last Documented Arterial Blood Pressure 113/61 - Exam GENERAL DESCRIPTION: An elderly female lying in bed in no distress RESPIRATORY SYSTEM: Unlabored breathing , decreased breath sounds at bases HEART: S1 S2 regular rate and rhythm , ABDOMEN: Soft , no tenderness EXTREMITIES: No edema feet - Labs CBC & Chem 7: 01/11/25 03:50 01/11/25 03:50 Labs: Abnormal Lab Results - Last 24 Hours (Table) 01/10/25 01/11/25 01/11/25 Range/Units 23:21 03:50 03:50 WBC 11.94 H (4.50-10.00) 10*3/uL RBC 3.38 L (4.10-5.20) 10*6/uL Hgb 10.8 L (12.0-15.0) g/dL Hct 31.8 L (37.2-46.3) % Immature Gran # 0.78 H (0.00-0.04) 10*3/uL Neutrophils # (Manual) 11.34 H (1.3-7.7) k/uL Metamyelocytes # (Man) 0.36 H (0) k/uL ABG pH (7.35-7.45) ABG HCO3 (21-25) mmol/L ABG Total CO2 (19-24) mmol/L ABG O2 Saturation (94-97) % Sodium 132 L (137-145) mmol/L Chloride 97 L (98-107) mmol/L Carbon Dioxide 32 H (22-30) mmol/L Creatinine 0.35 L (0.52-1.04) mg/dL Glucose 128 H (74-99) mg/dL POC Glucose (mg/dL) 163 H (70-110) mg/dL Calcium 7.8 L (8.4-10.2) mg/dL AST 41 H (14-36) U/L ALT 48 H (4-34) U/L Total Protein 4.3 L (6.3-8.2) g/dL Albumin 2.3 L (3.5-5.0) g/dL 01/11/25 01/11/25 01/11/25 Range/Units 05:25 05:56 11:25 WBC (4.50-10.00) 10*3/uL RBC (4.10-5.20) 10*6/uL Hgb (12.0-15.0) g/dL Hct (37.2-46.3) % Immature Gran # (0.00-0.04) 10*3/uL Neutrophils # (Manual) (1.3-7.7) k/uL Metamyelocytes # (Man) (0) k/uL ABG pH 7.53 H (7.35-7.45) ABG HCO3 31 H (21-25) mmol/L ABG Total CO2 32 H (19-24) mmol/L ABG O2 Saturation 98.0 H (94-97) % Sodium (137-145) mmol/L Chloride (98-107) mmol/L Carbon Dioxide (22-30) mmol/L Creatinine (0.52-1.04) mg/dL Glucose (74-99) mg/dL POC Glucose (mg/dL) 149 H 179 H (70-110) mg/dL Calcium (8.4-10.2) mg/dL AST (14-36) U/L ALT (4-34) U/L Total Protein (6.3-8.2) g/dL Albumin (3.5-5.0) g/dL 01/11/25 Range/Units 17:31 WBC (4.50-10.00) 10*3/uL RBC (4.10-5.20) 10*6/uL Hgb (12.0-15.0) g/dL Hct (37.2-46.3) % Immature Gran # (0.00-0.04) 10*3/uL Neutrophils # (Manual) (1.3-7.7) k/uL Metamyelocytes # (Man) (0) k/uL ABG pH (7.35-7.45) ABG HCO3 (21-25) mmol/L ABG Total CO2 (19-24) mmol/L ABG O2 Saturation (94-97) % Sodium (137-145) mmol/L Chloride (98-107) mmol/L Carbon Dioxide (22-30) mmol/L Creatinine (0.52-1.04) mg/dL Glucose (74-99) mg/dL POC Glucose (mg/dL) 186 H (70-110) mg/dL Calcium (8.4-10.2) mg/dL AST (14-36) U/L ALT (4-34) U/L Total Protein (6.3-8.2) g/dL Albumin (3.5-5.0) g/dL Assessment and Plan (1) Sepsis Current Visit: Yes Status: Acute Code(s): A41.9 - SEPSIS, UNSPECIFIED ORGANISM SNOMED Code(s): 17989013 (2) Streptococcus pneumoniae infection Current Visit: Yes Status: Acute Code(s): A49.1 - STREPTOCOCCAL INFECTION, UNSPECIFIED SITE SNOMED Code(s): 23136959 (3) Pneumonia Current Visit: No Status: Acute Code(s): J18.9 - PNEUMONIA, UNSPECIFIED ORGANISM SNOMED Code(s): 168095314 Plan: 1patient presenting to the hospital with shortness of breath and there was concern for AICD fire subsequently worsening of respiratory status required intubation intubation in the ICU patient do have hypotension requiring pressor support elevated white count meeting currently for SIRS/sepsis source is likely pneumonia with a question of community-acquired versus aspiration pneumonia as the patient did have a history of throat cancer on chemoradiation and there was concern for aspiration the time of intubation sputum is currently showing Streptococcus pneumoniae that has been sensitive to ceftriaxone and Augmentin 2-patient did have worsening of her respiratory status requiring more supplemental oxygen she did have CT angiogram of the chest that was negative for PE,patient is status post intubation bronchoscopy and lavage culture are currently growing Thelma which is likely colonizer 3patient is afebrile white coun mildly elevated compared to yesterday patient is currently covered with Unasyn and Diflucan to continue Family at bedside question answered Dictation was produced using [employer] dictation software. please excuse any grammatical, word or spelling errors. Time with Patient: Less than 30
[2025-01-12 01:40] LABS: Glucose,Whole Blood 171 mg/dL (70-110)
[2025-01-12 04:39] LABS: Basophils # (A) 0.06 10*3/uL (0.00-0.10); Basophils % (A) 0.6 %; Eosinophils # (A) 0.00 10*3/uL (0.04-0.35); Eosinophils % (A) 0.0 %; HCT 31.4 % (37.2-46.3); HGB 10.9 g/dL (12.0-15.0); Lymphocytes # (A) 0.16 10*3/uL (0.90-5.00); Lymphocytes % (A) 1.5 %; MCH 32.9 pg (27.0-32.0); MCHC 34.7 g/dL (32.0-37.0); MCV 94.9 fL (80.0-97.0); Monocytes # (A) 0.40 10*3/uL (0.20-1.00); Monocytes % (A) 3.7 %; Neutrophils # (A) 9.52 10*3/uL (1.80-7.70); Neutrophils % (A) 88.3 %; Platelet Count 149 10*3/uL (140-440); RBC 3.31 10*6/uL (4.10-5.20); RDW 18.3 % (11.5-14.5); WBC 10.78 10*3/uL (4.50-10.00)
[2025-01-12 04:46] LABS: African American GFR (CKD) >90 (>60 ml/min/1.73 sqM); Anion Gap 5 mmol/L; Blood Urea Nitrogen 19 mg/dL (7-17); Calcium 7.6 mg/dL (8.4-10.2); Carbon Dioxide 31 mmol/L (22-30); Chloride 95 mmol/L (98-107); Glucose 161 mg/dL (74-99); Magnesium 1.8 mg/dL (1.6-2.3); Non-African American GFR(CKD) >90 (>60 ml/min/1.73 sqM); Potassium 3.6 mmol/L (3.5-5.1); Sodium 131 mmol/L (137-145)
[2025-01-12] MEDS ORDERED: Potassium Replacement Protocol 1 EACH MISC MISCELLANE PRN (05:01)
[2025-01-12] MEDS ORDERED: Magnesium Replacement Protocol 1 EACH MISC MISCELLANE PRN (05:03)
[2025-01-12] MEDS: POTASSIUM BICARBONATE/CIT AC 20 MEQ TABLET.EFF NG-TUBE SCH (05:23)
[2025-01-12] MEDS: MAGNESIUM SULFATE-D5W PMX 1 GM in DEXTROSE/WATER 1 100ML.BAG IVPB ONE (05:24)
[2025-01-12 05:29] LABS: ABG HCO3 32 mmol/L (21-25); ABG PCO2 40 mmHg (35-45); ABG PH 7.51 (7.35-7.45); ABG PO2 98 mmHg (83-108); ABG TCO2 33 mmol/L (19-24)
[2025-01-12 05:35] LABS: Glucose,Whole Blood 169 mg/dL (70-110)
[2025-01-12 06:21] LABS: Allen Test Performed? No
--- NOTE | 2025-01-12 07:58 | XR ---
EXAMINATION TYPE: XR chest 1V portable DATE OF EXAM: 01/12/2025 5:16 AM COMPARISON: Chest radiograph from one day prior. CLINICAL INDICATION: Female, 69 years old with history of Mechanical ventilation; [facility] TECHNIQUE: XR chest 1V portable Frontal view of the chest. FINDINGS: Lungs/Pleura: No evidence of focal consolidation or pneumothorax. Blunting of the costophrenic angles is present. Pulmonary vascularity: Pulmonary vascular congestion. Heart/mediastinum: Cardiomediastinal silhouette is enlarged. Three lead cardiac conduction device ove rlying the left hemithorax with lead tips projecting over the right ventricle, right atrium and coron ian sinus. Musculoskeletal: No acute osseous pathology. Other findings: None Lines/Tubes: Endotracheal tube with distal tip 3.6 cm above the azael. Nasogastric tube with its distal tip and side-port projecting under the diaphragm. Right internal jugular central venous catheter with distal tip at the cavoatrial junction. IMPRESSION: Similar, Cardiomegaly, pulmonary vascular congestion and bilateral pleural effusions. Correlate with BNP for congestive heart failure. [facility], , 01/12/2025 7:55 AM
[2025-01-12 11:43] LABS: Glucose,Whole Blood 109 mg/dL (70-110)
--- NOTE | 2025-01-12 13:29 | P.PN ---
Subjective Progress Note Date: 01/12/25 Principal diagnosis: Acute hypoxic respiratory failure secondary to pneumococcal pneumonia involving left lower lobe 69-year-old female who looks much older than her stated age, who apparently comes into the emergency department, December 25, brought in by EMS, because apparently she was found down on the floor. She apparently was going to the bathroom, and fell, but did not hurt herself. She believes her defibrillator, went off, but she was not sure. She is not sure if she lost consciousness according to the [facility]. She apparently denied any chest pain, or difficulty breathing in the emergency department. Apparently, the patient was evaluated by cardiology, and, apparently there was an issue with the defibrillator. Anyway, the patient was all set to be discharged, but apparently last night, and then today, the patient developed some increasing shortness of breath, and, saturations are quite low, and the patient required more more oxygen, to the point where she was on Airvo. We were asked to see the patient because of her respiratory decline. Chest x-ray appears to show possible minimal infiltrate at the right lung base, she may have aspirated. She apparently has a history of throat cancer, undergoing both chemo and radiation therapy. The status of that is not known. In addition, according to the chart, she has a history of COPD, acid reflux disease, hypertension, rheumatoid arthritis, sleep apnea, hypothyroidism, among other things. She has had a heart catheterization, pacemaker, and AICD placement. We attempted to talk to the family about CODE STATUS. They were not sure of her CODE STATUS although in the chart, apparently she was not to be intubated. The was unsure. The daughter could not be reached. A blood gas was done, showing a PO2 of 39, PCO2 of 31, and a pH of 7.55. The patient was transferred to the intensive care unit. The blood gas was done on 100% oxygen. White count was 13.2, hemoglobin 15.7, hematocrit 43. 1, and platelet count 189,000. Sodium was 127, potassium 4.7, chlorides 90, CO2 23, anion gap 14, BUN 39, creatinine 0.91. Glucose was 143. N-terminal proBNP was 1580. TSH was quite high at 15.1. Home medications included levothyroxine, which the patient may or may not be taking. Chest x-ray from earlier, shows a possible minimal infiltrate, right lower lobe. Apparently the patient has been evaluated by speech pathology. Progress note dated December 30, 2024. 69-year-old female who looks much older than her stated age. We saw her yesterday in consultation. Patient developed respiratory failure, presumably secondary to aspiration. Patient is currently on the ventilator. She is on vol ume assist-control, rate 14, tidal volume 450, FiO2 80%, PEEP of 10. Blood gases on 100% show pO2 of 119, pCO2 of 45, pH of 7.35. Art line and central line were placed yesterday. She is on propofol at 40 mcg/kg/min, norepinephrine at 2.8 mcg/min, and saline at 10 cc an hour. She is getting vital high-protein at 10 cc an hour. She continues on azithromycin and Rocephin for aspiration pneumonia. White count of 15.3, hemoglobin 13.9, hematocrit 39.4, platelet count 161,000. Sodium 129, potassium 3.7, chloride 94, CO2 25, BUN 38, creatinine 0.98. Glucose is 186. Calcium 8.2. Chest x-ray shows a small right-sided pleural effusion, and some minimal infiltrate, at the right lung base. Progress note dated December 31, 2024. 69-year-old female seen today in room 262. She remains on volume assist- control, rate 14, tidal volume 450, FiO2 60%, PEEP of 10. Gases on 80% show pO2 of 137, PCO2 of 40, pH of 7.49. She is getting propofol at 40 mcg/kg/min, saline at 15 cc an hour, and vital high-protein at 10 cc, with a goal of 38. The patient is currently on azithromycin and Rocephin. Vancomycin is discontinued. Sputum was positive for Streptococcus pneumoniae. White count 13.6, hemoglobin 12.8, hematocrit 35.7, platelet count 137,000. Sodium 128, potassium 4, chloride 90, CO2 29, BUN 32, creatinine 0.76. Glucose 147. Calcium 8.1. Chest x-ray continues to show bibasilar infiltrates or atelectasis. On 01/01/2025, the patient is being seen for a follow-up. This morning, the p atient has been weaned off the sedation and the patient is arousable and the patient is making good eye contact and following simple commands and answering questions. The patient is on assist-control mode of mechanical ventilation at rate of 14, tidal volume of 450, FiO2 of 50% and a PEEP of 10. The blood gas showed a pH of 7.55 with a CLL263 and PO284. The chest x-ray from today shows COPD with some mild patchy atelectatic changes in the left lung base. Hemodynamically stable. White cell count of 13.9, hemothirteen 0.2 and a platelet count of 143. Sodium is at 130 with a potassium level of 3.8, bicarbonate 32, BUN 28 with a creatinine of 0.6. The patient had a sputum sample that was positive for Streptococcus pneumonia and the patient remains on IV Rocephin. The patient remains on bronchodilators and the patient is currently on DuoNeb nebulized treatments [id number]. A bedside cuff leak test was done and the patient has adequate air movement around the ET tube and the patient is currently intubated with a #7 orotracheal tube and this intubation was done due to concerns of her previous history of throat cancer. Tube feeds are currently on hold, possible extubation today based on her progress. On 01/02/2025, the patient is being seen for a follow-up. The patient has been weaned off the mechanical ventilator and the patient was extubated and the patient is currently on 2 L of oxygen by nasal cannula. The patient is having some difficulty in swallowing. The cough is weak. No significant respiratory distress. She failed a bedside swallow and the patient will have an official swallow evaluation. Meanwhile, the patient has been kept NPO. She remains on the lactated Ringer at rate of 75 cc an hour. She was also noted to have oropharyngeal candidiasis. She is awake and alert and communicating. The chest x-ray from this morning shows COPD with slightly worsening patchy retrocardiac atelectasis. The patient's WBC count is 11.2 with a hemoglobin of 11.7 and a platelet count of 102. BUN is 23 with a creatinine 0.6. Sodium level is 134 and a potassium level is at 3.5. The patient remains on IV Rocephin 2 g every 24 hours as the patient sputum sample was positive for strep pneumo. The patient remains on DuoNeb treatments [id number]. The patient is on Coreg 6.25 mg p.o. twice a day, Synthroid 88 mcg p.o. daily, and Lipitor 80 mg p.o. d aily. She is also on aspirin. There is generalized profound weakness in all 4 extremities. Nevertheless, the patient is able to move all 4 extremities and she is following simple commands. Coffee mechanism remains weak. 01/03/2025, the patient is being seen for a follow-up. The patient was pandya sferred out of the intensive care unit postextubation the patient is currently on 2 L of oxygen by nasal cannula. She continues to have some limited congested cough. No significant sputum production. No signs of any significant respiratory distress. She remains profoundly weak and debilitated. She is also having difficulty in swallowing and speech pathology has been involved in the care of the patient is going to undergo a modified barium swallow. The patient also had oropharyngeal candidiasis and the patient is currently taking IV Diflucan. She remains on IV Rocephin regarding a pneumococcal pneumonia with secondary COPD exacerbation. Most recent chest x-ray from 01/02/2025 shows COPD and patchy left lower lobe pulmonary infiltrates/atelectasis/consolidation. The white second 11.2 with a hemoglobin 12.1 and platelet count of 105. Sodium level is at 133, BUN 28 with a creatinine of 0.4. Bicarb is at 21. Glucose is 157. On 01/04/2025, the patient had a coughing COPD. Noted this patient is post ventilator dependent respiratory failure and a pneumococcal pneumonia. The noelle ent remains on IV Rocephin. Episode and following that the patient started having hypoxemia. The patient was brought up from 2 L up to 15 L of nasal cannula. Based on that, further workup was initiated. The patient was given a blood gas that showed acute respiratory alkalosis with a pH of 7.55 and a PCO2 of 29 and PO2 of 33. Subsequently, the patient was placed on 13 L and her current pulse ox is 93%. CT of the chest was also done and the patient had no evidence of any pulmonary embolism. The patient had no filling defects. There was bilateral lower lobe opacities/atelectasis. There is additional few peripheral right upper lobe and lingular groundglass opacities that are minimal and there is also mucous plugging and a trace right-sided pleural effusion. There is also background COPD. Noted the patient is post ventilator dependent respiratory failure and the patient was extubated on 01/02/2025. The patient continued to have dysphagia following her extubation patient is currently NPO. No reported aspiration per nursing staff. Her antibiotic coverage has been switched to IV Unasyn and Rocephin has been discontinued. Remains on bronchodilators. Remains on IV Solu-Medrol. The white cell count from yesterday was 11.2. No labs are available from today. Obviously, her labs need to be repeated. Family is at the bedside. She is arousable and awake although she is quite weak and she seems to be quite debilitated. On 01/05/2025, the patient is being seen for a follow-up. The patient was initially seen on the medical floor and the patient was on 100% of the bed face mask and oxygen nasal cannula at 15 L. Pulse ox was 91%. The patient was lethargic, confused, and sluggishly responsive to verbal or painful stimulation. Noted, the patient was quite hypoxic. Most recent blood gas from this morning showed a pH of 7.6 with a PCO2 of 26 and PO2 of 52 on 100% nonrebreather facemask and oxygen high flow at 15 L. A follow-up chest x-ray was also done that showed small right-sided pleural effusion/atelectasis. Patchy retrocardiac opacity was again present. CT of the chest was also completed yesterday the patient has no evidence of any pulmonary embolism. There is evidence of bilateral lower lobe consolidation and atelectasis and possibly some mucous plugging. Trace right-sided pleural effusion was also noted. The patient was started on IV Unasyn accordingly. Based on ongoing hypoxemia and diminished level of consciousness, the patient was transferred to the intensive care unit. The patient was started on BiPAP. While being on a BiPAP of 12/5 with an FiO2 of 100%, repeat blood gas was done and the patient demonstrated a pH of 7.57 with a pCO2 28 and PO2 of 57. The patient had some difficulty in tolerating the BiPAP and the patient will be started on Precedex to maintain secondary to the BiPAP machine. The patient was given a triple-lumen catheter in the intensive care unit and this was inserted in the right IJ without any complications. No evidence of any pneumothorax post line insertion. Hemodynamically, remained stable. No significant hypotension. The patient was started on lactated Ringer at rate of 75 cc an hour. Antibiotic coverage remains IV Unasyn and Diflucan. Remains on bronchodilators. Remains on IV Solu-Medrol. Currently off diuretics. Remains n.p.o. as the patient had difficulty swallowing post extubation. On 01/06/2025, the patient is being seen in the intensive care unit. Extremely lethargic, weak, difficult to arouse, remains on a BiPAP with borderline oxygenation. The patient has been kept on a BiPAP at a pressure of 10 over 5 cm of water and FiO2 of 80%. The blood gas showed some improvement in oxygenation and the morning blood gas showed a pH of 7.33 with a pCO2 of 31 and pO2 of 89. The patient continues to moan and c occasionally cries for help. She states that she is unable to breathe. The exact cause for her underlying hypoxemia is not clear. Suspect mucous plugs. Noted I reviewed the chest x-ray from this morning and the patient has no clear airspace disease or consolidation. There is some right lower lobe airspace opacity. Otherwise, no significant abnormalities to explain the patient's hypoxemia. The same time, his CT of the chest was done on 01/04/2025 showed bilateral lower lobe consolidation and atelectasis. There was also a few peripheral right upper lobe and lingular groundglass opacities. Findings were trivial and there was no evidence of any pulmonary embolism. A trace right-sided pleural effusion was noted. Based on her critical and borderline respiratory status, I decided to go ahead and intubate the patient. I performed intubation the Glydo scope. I examined the upper airway structures and the vocal cords seem to be quite patent and open and there was no significant supraglottic narrowing of concern. The patient was intubated by #8 orotracheal tube via the glide scope. Following that, I performed a bronchoscopy and the patient did have some purulent mucous plugs in the lower lobes bilaterally, right more than left and total amount of purulent respiratory secretions were suctioned out was in order 50 cc. Meanwhile, the patient was kept on a mechanical ventilator. Currently, the patient is in assist-control mode at rate of 40, tidal volume of 450, FiO2 100% with a PEEP of 5. Blood gas showed a pH of 7.6 with a PCO2 of 23 and PO2 of 128. Postintubation chest x-ray shows no acute cardiopulmonary process. ET tube with distal tip 3.5 cm above the azael. NG tube was also in good location. Morning blood work showed a WBC count of 11.5, hemoglobin 10.7 and platelet count of 100. Sodium is at 136, potassium is at 3.5, BUN 28 and creatinine 0.4. Blood sugar is at 149. The patient is currently on IV Unasyn as a broad-spectrum antibiotics as the patient had a pneumococcal pneumonia at time of admission. The patient remains on DuoNeb nebulizer treatments [id number], IV Solu- Medrol, 40 mg every 12 hours. Patient is also on Diflucan for oropharyngeal candidiasis. Remains on Coreg, Lipitor and aspirin. On 01/07/2025, the patient is being seen for a follow-up. The patient remains intubated on a mechanical ventilator. On today's evaluation, the patient is sedated on propofol which is running at 60 mcg/kg/min. The patient remains also on assist-control mode rate of 14, tidal volume of 400, FiO2 of 70% with a PEEP of 5. The blood gas showed a pH of 7.44 with a [id number] and PO2 of 75. Chest x- ray findings are essentially unchanged and the patient continues to have some left basilar consolidation. Earlier CAT scan of the chest also showed bibasilar atelectasis and consolidations. The patient had positive sputum sample for strep pneumo. However, a bronchoscopy with therapeutic airway suctioning and mucous plug removal was done yesterday and another bronchoalveolar lavage of the right lower lobe was done. Results are still pending for now. Antibiotic coverage remains unchanged and the patient remains on IV Unasyn. The patient remains on lactated Ringer at rate of 75 cc an hour. Cardiac rhythm is sinus bradycardia. Fluid balance is +3.3 L over the past 24 hours and the patient will be started on enteral feeding for nutritional support. The labs from today showed a WBC count of 13.4, hemoglobin of 10.3 and a platelet count of 111. Sodium is at 135, potassium is at 4.2, BUN is 23 with a creatinine of 0.39. Serum bicarb is at 23. No other significant events overnight on this patient. The Coreg will be placed on hold as the patient is having some bradycardia. Remains on aspirin. Remains on Lipitor. Remains on Diflucan for oropharyngeal candidiasis. Seen today on 01/08/2025, patient remains in the ICU, intubated and mechanically ventilated, on assist-control rate of 14 tidal volume 400 FiO2 50% and PEEP of 8 patient is still requiring pressors norepinephrine at 0.08 mcg/kg/min, she is also on LR 75 cc/h propofol 60 mcg/kg/min vital HP at 10 cc/h. Remains on antibiotics for her streptococcal pneumonia/Unasyn. Patient is also on Diflucan for oropharyngeal candidiasis. Apparently the patient was extubated on 01/01, reintubated on 01/06 CODE STATUS has been changed to DNR CODE STATUS, however the issue of comfort care was not discussed or at least the family is undecided regarding her overall condition. Patient is sedated, chest x-ray was reviewed and it showed cardiomegaly, mild pulmonary vascular congestion, and right lower lobe consolidation/pneumonia. Labs reviewed WBC count is 11.5 hemoglobin 10.1 electrolytes are normal, renal profile is normal blood sugar is 167. Seen today on 01/09/2025, remains in the ICU, intubated and mechanically ventilated, on assist-control rate of 14 tidal volume 400 FiO2 50% PEEP of 8 I cut it down to 5 ABG showed a pO2 of 92 pCO2 34 pH of 7.5. Chest x-ray showed minimal congestive changes with pulmonary vascular congestion and left basilar atelectasis, patient is off propofol this morning, she is arousable, but she t ends to fall asleep easily and noted to have episodes of apnea. Hence I transitioned her ventilatory settings to pressure support of 10 with IMV rate, backup rate of 8, and I plan to give the patient at least a weaning trial with pressure support low IMV backup rate because of her apnea, and continue with CPAP. This will be done today. And if the patient tolerates this mode for few hours, may check ABG and decide whether the patient could be extubated. Clinically this is probably our window to extubate the patient, patient is no code, may have to discuss with the family whether the patient could be reintubated if she fails extubation, but apparently the CODE STATUS has been established as no code. Labs were reviewed today, WBC count is 13.3 hemoglobin 10.1 platelets are 123. Basic metabolic profile is normal BUN is 18 creatinine 0.38 Seen today on 01/10/2025, patient remains in the ICU, intubated and mechanically ventilated, patient is on assist-control rate of 14 tidal volume 400 FiO2 50% PEEP of 5 ABG showed a pO2 of 105 pCO2 37 pH of 7.51. Patient remains on Unasyn for her pneumococcal pneumonia she is also on fluconazole propofol is presently on hold this morning. She is on vital HP at 33 cc/h and LR at 75 cc/h. Patient was placed on Lasix 20 mg IV push twice daily. Patient is arousable in spite of being on propofol, seems to be generally weak, follows simple instructions WBC count is 9.8 hemoglobin 9.3, basic metabolic profile is normal renal profile is normal creatinine is normal blood sugar is 157, magnesium 1.8 chest x-ray showed cardiomegaly small left pleural effusion and bibasilar atelectasis versus infiltrates. Patient was seen today on 01/11/2025, remains in the ICU intubated and mechanically ventilated, patient is off sedation, she is quite calm, arousable but lethargic. On assist-control rate of 14 tidal volume 400 FiO2 had to be increased last night to 70% today down to 60% I increased PEEP to 8. ABG this morning showed a pO2 of 88 pCO2 37 pH of 7.53 and this was on 70% FiO2. Patient is on vital HP at 33 cc/h IV fluid at 75 cc/h in the form of LR, not much has changed over the last 24 hours except patient developed some atelectasis and mucous plugging and had to be suctioned her O2 saturation dropped down, chest x- ray showed mostly bibasilar atelectasis left more so than right, WBC count is 11.9 hemoglobin 10.8 platelets 151. Basic metabolic profile is normal, renal profile is normal. Seen today on 01/12/2025, patient remains in the ICU, intubated and mechanically ventilated, patient is on assist-control rate of 14 tidal volume 400 FiO2 60% PEEP of 8 ABG showed a pO2 of 98 pCO2 40 pH of 7.51 hence FiO2 was cut down to 50% The PEEP at 8. Patient remains off propofol for the last 2 days, she is on LR at 75 cc/h receiving vital HP at 40 cc/h. Yesterday patient was tried on pressure support and CPAP for a short period of time, did not tolerate in spite of the backup rate with IMV, patient had to be placed back on AC mode. Chest x- ray this morning showed cardiomegaly, mild pulmonary vascular congestion, small pleural effusions, right basilar atelectasis, labs were reviewed WBC count is 10.7 hemoglobin 10.9 sodium is low at 131, potassium 3.6 bicarb is 31 chloride 95 BUN is 19 creatinine 0.31 patient remains quite sleepy, however she is arousable seems to be generally weak, follows simple instructions. Objective - Vital Signs Vital signs: Vital Signs Temp 98.3 F 01/12/25 12:00 Pulse 93 01/12/25 13:00 Resp 20 01/12/25 13:00 BP 106/60 01/12/25 09:00 Pulse Ox 95 01/12/25 13:00 FiO2 60 01/12/25 12:00 Intake & Output 01/11/25 01/12/25 01/12/25 18:59 06:59 18:59 Intake Total 2263 993 867.031 Output Total 2155 1375 995 Balance 108 -382 -127.969 Weight 84.4 kg 84.6 kg Intake: IV 1249 553 526 0.9 260 220 80 Fluconazole in NaCl,Iso- 50 50 Osm 100 mg In Saline 1 50ml.bag @ 50 mls/hr IVPB DAILY [facility] Rx#:[id number] Lactated Ringers 1,000 ml 900 300 375 @ 75 mls/hr IV .[id number] [facility] Rx#:[id number] Pressure bag 39 33 21 Intake, IV Titration 100 1.031 Amount Ampicillin-Sulbactam 3 gm 100 In Sodium Chloride 0.9% 100 ml @ 200 mls/hr IVPB Q6HR [facility] Rx#:[id number] Norepinephrine 8 mg In 1.031 Sodium Chloride 0.9% 250 ml @ 0.03 MCG/KG/MIN 4. 122 mls/hr IV .Q24H [facility] Rx#:[id number] Oral 360 Tube Feeding 464 440 280 Other 90 60 Output: Urine 2155 1375 995 Other: Voiding Method Indwelling Catheter Indwelling Catheter Indwelling Catheter ABP, PAP, CO, CI - Last Documented Arterial Blood Pressure 154/78 - Exam Physical exam revealed a 69-year-old female in no distress intubated mechanically ventilated Head: Atraumatic normocephalic HEENT: PERRLA EOMI, nonicteric no neck masses no JVD Chest crackles at the bases no rhonchi no wheezes Cardiac distant S1-S2, no S3 gallop, no murmur Abdomen soft nontender no megaly no rebound no guarding Extremities no clubbing edema or cyanosis Skin: No rashes Neurologic: Arousable, follows simple instructions generally weak. Psychiatric: Normal mood affect and no mental status examination - Labs CBC & Chem 7: 01/12/25 04:00 01/12/25 10:30 Labs: Abnormal Lab Results - Last 24 Hours (Table) 01/11/25 01/12/25 01/12/25 Range/Units 17:31 01:38 04:00 WBC 10.78 H (4.50-10.00) 10*3/uL RBC 3.31 L (4.10-5.20) 10*6/uL Hgb 10.9 L (12.0-15.0) g/dL Hct 31.4 L (37.2-46.3) % MCH 32.9 H (27.0-32.0) pg Immature Gran # 0.64 H (0.00-0.04) 10*3/uL Neutrophils # 9.52 H (1.80-7.70) 10*3/uL Lymphocytes # 0.16 L (0.90-5.00) 10*3/uL Eosinophils # 0.00 L (0.04-0.35) 10*3/uL ABG pH (7.35-7.45) ABG HCO3 (21-25) mmol/L ABG Total CO2 (19-24) mmol/L ABG O2 Saturation (94-97) % Hemoglobin (11.4-16.0) gm/dL Sodium (137-145) mmol/L Chloride (98-107) mmol/L Carbon Dioxide (22-30) mmol/L BUN (7-17) mg/dL Creatinine (0.52-1.04) mg/dL Glucose (74-99) mg/dL POC Glucose (mg/dL) 186 H 171 H (70-110) mg/dL Calcium (8.4-10.2) mg/dL 01/12/25 01/12/25 01/12/25 Range/Units 04:00 05:30 05:34 WBC (4.50-10.00) 10*3/uL RBC (4.10-5.20) 10*6/uL Hgb (12.0-15.0) g/dL Hct (37.2-46.3) % MCH (27.0-32.0) pg Immature Gran # (0.00-0.04) 10*3/uL Neutrophils # (1.80-7.70) 10*3/uL Lymphocytes # (0.90-5.00) 10*3/uL Eosinophils # (0.04-0.35) 10*3/uL ABG pH 7.51 H (7.35-7.45) ABG HCO3 32 H (21-25) mmol/L ABG Total CO2 33 H (19-24) mmol/L ABG O2 Saturation 98.6 H (94-97) % Hemoglobin 11.3 L (11.4-16.0) gm/dL Sodium 131 L (137-145) mmol/L Chloride 95 L (98-107) mmol/L Carbon Dioxide 31 H (22-30) mmol/L BUN 19 H (7-17) mg/dL Creatinine 0.31 L (0.52-1.04) mg/dL Glucose 161 H (74-99) mg/dL POC Glucose (mg/dL) 169 H (70-110) mg/dL Calcium 7.6 L (8.4-10.2) mg/dL Assessment and Plan Assessment: Impression: Acute hypoxic respiratory failure secondary to pneumococcal pneumonia and severe cardiomyopathy with acute on chronic systolic congestive heart failure and underlying COPD. 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 The seems to be inclined to consider extubation and comfort care measures however he would like to discuss this with his daughter. In the meantime: Continue antibiotics Continue diuretics Continue Diflucan Keep patient off sedation Continue to daily assess mental status Continue statins Continue aspirin Continue GI DVT prophylaxis Continue nutritional support/enteral feeding Condition was fully discussed with at bedside Critical care time is 32 minutes Prognosis is extremely poor and guarded Time with Patient: Greater than 30
--- NOTE | 2025-01-12 15:30 | P.PN ---
Subjective Progress Note Date: 01/12/25 69-year-old female who looks much older than her stated age, who apparently comes into the emergency department, December 25, brought in by EMS, because apparently she was found down on the floor. She apparently was going to the bathroom, and fell, but did not hurt herself. She believes her defibrillator, went off, but she was not sure. She is not sure if she lost consciousness according to the [facility]. She apparently denied any chest pain, or difficulty breathing in the emergency department. Apparently, the patient was evaluated by cardiology, and, apparently there was an issue with the defibrillator. Anyway, the patient was all set to be discharged, but apparently last night, and then today, the patient developed some increasing shortness of breath, and, saturations are quite low, and the patient required more more oxygen, to the point where she was on Airvo. We were asked to see the patient because of her respiratory decline. Chest x-ray appears to show possible minimal infiltrate at the right lung base, she may have aspirated. She apparently has a history of throat cancer, undergoing both chemo and radiation therapy. The status of that is not known. In addition, according to the chart, she has a history of COPD, acid reflux disease, hypertension, rheumatoid arthritis, sleep apnea, hypothyroidism, among other things. She has had a heart catheterization, pacemaker, and AICD placement. We attempted to talk to the family about CODE STATUS. They were not sure of her CODE STATUS although in the chart, apparently she was not to be intubated. The was unsure. The daughter could not be reached. A blood gas was done, showing a PO2 of 39, PCO2 of 31, and a pH of 7.5 5. The patient was transferred to the intensive care unit. The blood gas was done on 100% oxygen. White count was 13.2, hemoglobin 15.7, hematocrit 43.1, and platelet count 189,000. Sodium was 127, potassium 4.7, chlorides 90, CO2 23, anion gap 14, BUN 39, creatinine 0.91. Glucose was 143. N-terminal proBNP was 1580. TSH was quite high at 15.1. Home medications included levothyroxine, which the patient may or may not be taking. Chest x-ray from earlier, shows a possible minimal infiltrate, right lower lobe. Apparently the patient has been evaluated by speech pathology. 01/11. Dr. Chilel took over care from Dr. Emmanuel. Patient currently on mechanical ventilation, currently on IV Unasyn and Diflucan. Patient also getting IV Lasix 20 mg every 12. 01/12. Patient seen examined. Blood work done showed WBC 10.7, hemoglobin 8.9, patient count 149, sodium 39, potassium 3.6, BUN 19, creatinine 0.31. at the bedside, plan is for the patient to go comfort care once daughter [place] REVIEW OF SYSTEMS: Review of system cannot be obtained patient intubated PHYSICAL EXAMINATION: GENERAL: The patient is intubated HEENT: Pupils are round and equally reacting to light. EOMI. No scleral icterus. No conjunctival pallor. Normocephalic, atraumatic. No pharyngeal erythema. No thyromegaly. CARDIOVASCULAR: S1 and S2 present. No murmurs, rubs, or gallops. PULMONARY: Coarse breath sounds bilaterally no wheeze ABDOMEN: Soft, nontender, nondistended, normoactive bowel sounds. No palpable organomegaly. MUSCULOSKELETAL: No joint swelling or deformity. EXTREMITIES: No cyanosis, clubbing, or pedal edema. NEUROLOGICAL: Intubated SKIN: No rashes. Assessment and plan Acute hypoxic respiratory failure secondary to pneumococcal pneumonia and severe cardiomyopathy with acute on chronic systolic congestive heart failure and underlying COPD. 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 Continue same treatment. Continue with symptomatic treatment. Resume home medication. Monitor labs and vitals. DVT and GI prophylaxis. Further recommendations as per clinical course of the patient Dictation was produced using [employer] dictation software. please excuse any grammatical, word or spelling errors. Objective - Vital Signs Vital signs: Vital Signs Temp 98.3 F 01/12/25 12:00 Pulse 90 01/12/25 12:30 Resp 14 01/12/25 12:30 BP 106/60 01/12/25 09:00 Pulse Ox 96 01/12/25 12:30 FiO2 50 01/12/25 11:41 Intake & Output 01/11/25 01/12/25 01/12/25 18:59 06:59 18:59 Intake Total 2263 993 739.031 Output Total 2155 1375 895 Balance 108 -382 -155.969 Weight 84.4 kg 84.6 kg Intake: IV 1249 553 438 0.9 260 220 70 Fluconazole in NaCl,Iso- 50 50 Osm 100 mg In Saline 1 50ml.bag @ 50 mls/hr IVPB DAILY [facility] Rx#:[id number] Lactated Ringers 1,000 ml 900 300 300 @ 75 mls/hr IV .[id number] [facility] Rx#:[id number] Pressure bag 39 33 18 Intake, IV Titration 100 1.031 Amount Ampicillin-Sulbactam 3 gm 100 In Sodium Chloride 0.9% 100 ml @ 200 mls/hr IVPB Q6HR [facility] Rx#:[id number] Norepinephrine 8 mg In 1.031 Sodium Chloride 0.9% 250 ml @ 0.03 MCG/KG/MIN 4. 122 mls/hr IV .Q24H [facility] Rx#:[id number] Oral 360 Tube Feeding 464 440 240 Other 90 60 Output: Urine 2155 1375 895 Other: Voiding Method Indwelling Catheter Indwelling Catheter Indwelling Catheter ABP, PAP, CO, CI - Last Documented Arterial Blood Pressure 108/51 - Labs CBC & Chem 7: 01/12/25 04:00 01/12/25 10:30 Labs: Abnormal Lab Results - Last 24 Hours (Table) 01/11/25 01/12/25 01/12/25 Range/Units 17:31 01:38 04:00 WBC 10.78 H (4.50-10.00) 10*3/uL RBC 3.31 L (4.10-5.20) 10*6/uL Hgb 10.9 L (12.0-15.0) g/dL Hct 31.4 L (37.2-46.3) % MCH 32.9 H (27.0-32.0) pg Immature Gran # 0.64 H (0.00-0.04) 10*3/uL Neutrophils # 9.52 H (1.80-7.70) 10*3/uL Lymphocytes # 0.16 L (0.90-5.00) 10*3/uL Eosinophils # 0.00 L (0.04-0.35) 10*3/uL ABG pH (7.35-7.45) ABG HCO3 (21-25) mmol/L ABG Total CO2 (19-24) mmol/L ABG O2 Saturation (94-97) % Hemoglobin (11.4-16.0) gm/dL Sodium (137-145) mmol/L Chloride (98-107) mmol/L Carbon Dioxide (22-30) mmol/L BUN (7-17) mg/dL Creatinine (0.52-1.04) mg/dL Glucose (74-99) mg/dL POC Glucose (mg/dL) 186 H 171 H (70-110) mg/dL Calcium (8.4-10.2) mg/dL 01/12/25 01/12/25 01/12/25 Range/Units 04:00 05:30 05:34 WBC (4.50-10.00) 10*3/uL RBC (4.10-5.20) 10*6/uL Hgb (12.0-15.0) g/dL Hct (37.2-46.3) % MCH (27.0-32.0) pg Immature Gran # (0.00-0.04) 10*3/uL Neutrophils # (1.80-7.70) 10*3/uL Lymphocytes # (0.90-5.00) 10*3/uL Eosinophils # (0.04-0.35) 10*3/uL ABG pH 7.51 H (7.35-7.45) ABG HCO3 32 H (21-25) mmol/L ABG Total CO2 33 H (19-24) mmol/L ABG O2 Saturation 98.6 H (94-97) % Hemoglobin 11.3 L (11.4-16.0) gm/dL Sodium 131 L (137-145) mmol/L Chloride 95 L (98-107) mmol/L Carbon Dioxide 31 H (22-30) mmol/L BUN 19 H (7-17) mg/dL Creatinine 0.31 L (0.52-1.04) mg/dL Glucose 161 H (74-99) mg/dL POC Glucose (mg/dL) 169 H (70-110) mg/dL Calcium 7.6 L (8.4-10.2) mg/dL
--- NOTE | 2025-01-12 16:04 | P.PN ---
Subjective Progress Note Date: 01/12/25 Principal diagnosis: Reason for follow-up is pneumonia Patient is a 69-year-old female with a past medical history significant for hypertension rheumatoid arthritis reflux COPD did have history of AICD anxiety depression, history of throat cancer on chemoradiation initially presented to hospital after repeated have a fall subsequent did have a worsening respiratory status requiring intubation admission in the ICU there was concern for pneumonia sputum with strep pneumo prompted this consultation On today's evaluation that is 01/12/2025, the patient continues to be afebrile, the patient remains to be intubated on the vent, FiO2 is currently 50% no significant purulent secretions with ATRA change reported by the nursing staff The patient did not do well with the weaning trials. Patient white count is 10.78, creatinine 0.31 Objective - Vital Signs Vital signs: Vital Signs Temp 98.3 F 01/12/25 12:00 Pulse 110 H 01/12/25 15:59 Resp 13 01/12/25 15:00 BP 106/60 01/12/25 09:00 Pulse Ox 93 L 01/12/25 15:15 FiO2 50 01/12/25 15:56 Intake & Output 01/11/25 01/12/25 01/12/25 18:59 06:59 18:59 Intake Total 2263 993 1123.031 Output Total 2155 1375 1145 Balance 108 -382 -21.969 Weight 84.4 kg 84.6 kg Intake: IV 1249 553 702 0.9 260 220 100 Fluconazole in NaCl,Iso- 50 50 Osm 100 mg In Saline 1 50ml.bag @ 50 mls/hr IVPB DAILY [facility] Rx#:[id number] Lactated Ringers 1,000 ml 900 300 525 @ 75 mls/hr IV .[id number] [facility] Rx#:[id number] Pressure bag 39 33 27 Intake, IV Titration 100 1.031 Amount Ampicillin-Sulbactam 3 gm 100 In Sodium Chloride 0.9% 100 ml @ 200 mls/hr IVPB Q6HR [facility] Rx#:[id number] Norepinephrine 8 mg In 1.031 Sodium Chloride 0.9% 250 ml @ 0.03 MCG/KG/MIN 4. 122 mls/hr IV .Q24H [facility] Rx#:[id number] Oral 360 Tube Feeding 464 440 360 Other 90 60 Output: Urine 2155 1375 1145 Other: Voiding Method Indwelling Catheter Indwelling Catheter Indwelling Catheter ABP, PAP, CO, CI - Last Documented Arterial Blood Pressure 132/74 - Exam GENERAL DESCRIPTION: An elderly female lying in bed in no distress RESPIRATORY SYSTEM: Unlabored breathing , decreased breath sounds at bases HEART: S1 S2 regular rate and rhythm , ABDOMEN: Soft , no tenderness EXTREMITIES: No edema feet - Labs CBC & Chem 7: 01/12/25 04:00 01/12/25 10:30 Labs: Abnormal Lab Results - Last 24 Hours (Table) 01/11/25 01/12/25 01/12/25 Range/Units 17:31 01:38 04:00 WBC 10.78 H (4.50-10.00) 10*3/uL RBC 3.31 L (4.10-5.20) 10*6/uL Hgb 10.9 L (12.0-15.0) g/dL Hct 31.4 L (37.2-46.3) % MCH 32.9 H (27.0-32.0) pg Immature Gran # 0.64 H (0.00-0.04) 10*3/uL Neutrophils # 9.52 H (1.80-7.70) 10*3/uL Lymphocytes # 0.16 L (0.90-5.00) 10*3/uL Eosinophils # 0.00 L (0.04-0.35) 10*3/uL ABG pH (7.35-7.45) ABG HCO3 (21-25) mmol/L ABG Total CO2 (19-24) mmol/L ABG O2 Saturation (94-97) % Hemoglobin (11.4-16.0) gm/dL Sodium (137-145) mmol/L Chloride (98-107) mmol/L Carbon Dioxide (22-30) mmol/L BUN (7-17) mg/dL Creatinine (0.52-1.04) mg/dL Glucose (74-99) mg/dL POC Glucose (mg/dL) 186 H 171 H (70-110) mg/dL Calcium (8.4-10.2) mg/dL 01/12/25 01/12/25 01/12/25 Range/Units 04:00 05:30 05:34 WBC (4.50-10.00) 10*3/uL RBC (4.10-5.20) 10*6/uL Hgb (12.0-15.0) g/dL Hct (37.2-46.3) % MCH (27.0-32.0) pg Immature Gran # (0.00-0.04) 10*3/uL Neutrophils # (1.80-7.70) 10*3/uL Lymphocytes # (0.90-5.00) 10*3/uL Eosinophils # (0.04-0.35) 10*3/uL ABG pH 7.51 H (7.35-7.45) ABG HCO3 32 H (21-25) mmol/L ABG Total CO2 33 H (19-24) mmol/L ABG O2 Saturation 98.6 H (94-97) % Hemoglobin 11.3 L (11.4-16.0) gm/dL Sodium 131 L (137-145) mmol/L Chloride 95 L (98-107) mmol/L Carbon Dioxide 31 H (22-30) mmol/L BUN 19 H (7-17) mg/dL Creatinine 0.31 L (0.52-1.04) mg/dL Glucose 161 H (74-99) mg/dL POC Glucose (mg/dL) 169 H (70-110) mg/dL Calcium 7.6 L (8.4-10.2) mg/dL Assessment and Plan (1) Sepsis Current Visit: Yes Status: Acute Code(s): A41.9 - SEPSIS, UNSPECIFIED ORGANISM SNOMED Code(s): 24338509 (2) Streptococcus pneumoniae infection Current Visit: Yes Status: Acute Code(s): A49.1 - STREPTOCOCCAL INFECTION, UNSPECIFIED SITE SNOMED Code(s): 24510129 (3) Pneumonia Current Visit: No Status: Acute Code(s): J18.9 - PNEUMONIA, UNSPECIFIED ORGANISM SNOMED Code(s): 591586067 Plan: 1patient presenting to the hospital with shortness of breath and there was concern for AICD fire subsequently worsening of respiratory status required intubation intubation in the ICU patient do have hypotension requiring pressor support elevated white count meeting currently for SIRS/sepsis source is likely pneumonia with a question of community-acquired versus aspiration pneumonia as the patient did have a history of throat cancer on chemoradiation and there was concern for aspiration the time of intubation sputum is currently showing Streptococcus pneumoniae that has been sensitive to ceftriaxone and Augmentin 2-patient did have worsening of her respiratory status requiring more supplemental oxygen she did have CT angiogram of the chest that was negative for PE,patient is status post intubation bronchoscopy and lavage culture are currently growing Thelma which is likely colonizer 3patient is afebrile white is trending down patient is currently being treated with Unasyn and Diflucan to continue seem to be not weaning off the vent currently waiting for decision regarding hospice versus trach and PEG awaiting for her daughter arrival from [place] as reported by the nursing staff Family at bedside question answered Dictation was produced using [employer] dictation software. please excuse any grammatical, word or spelling errors. Time with Patient: Less than 30
[2025-01-12 17:53] LABS: Glucose,Whole Blood 177 mg/dL (70-110)
[2025-01-12 23:52] LABS: Glucose,Whole Blood 220 mg/dL (70-110)
[2025-01-13 03:06] LABS: Basophils # (A) 0.04 10*3/uL (0.00-0.10); Basophils % (A) 0.3 %; Eosinophils # (A) 0.00 10*3/uL (0.04-0.35); Eosinophils % (A) 0.0 %; HCT 31.0 % (37.2-46.3); HGB 10.6 g/dL (12.0-15.0); Lymphocytes # (A) 0.20 10*3/uL (0.90-5.00); Lymphocytes % (A) 1.4 %; MCH 32.6 pg (27.0-32.0); MCHC 34.2 g/dL (32.0-37.0); MCV 95.4 fL (80.0-97.0); Monocytes # (A) 0.71 10*3/uL (0.20-1.00); Monocytes % (A) 4.9 %; Neutrophils # (A) 12.61 10*3/uL (1.80-7.70); Neutrophils % (A) 87.6 %; Platelet Count 169 10*3/uL (140-440); RBC 3.25 10*6/uL (4.10-5.20); RDW 18.0 % (11.5-14.5); WBC 14.39 10*3/uL (4.50-10.00)
[2025-01-13 03:17] LABS: ALT 72 U/L (4-34); AST 46 U/L (14-36); African American GFR (CKD) >90 (>60 ml/min/1.73 sqM); Albumin 2.4 g/dL (3.5-5.0); Alkaline Phosphatase 53 U/L (38-126); Anion Gap 1 mmol/L; Blood Urea Nitrogen 25 mg/dL (7-17); Calcium 7.7 mg/dL (8.4-10.2); Carbon Dioxide 34 mmol/L (22-30); Chloride 95 mmol/L (98-107); Glucose 178 mg/dL (74-99); Magnesium 1.9 mg/dL (1.6-2.3); Non-African American GFR(CKD) >90 (>60 ml/min/1.73 sqM); Potassium 3.9 mmol/L (3.5-5.1); Sodium 130 mmol/L (137-145); Total Protein 4.3 g/dL (6.3-8.2)
[2025-01-13] MEDS: POTASSIUM BICARBONATE/CIT AC 20 MEQ TABLET.EFF NG-TUBE SCH (03:36)
[2025-01-13] MEDS: MAGNESIUM SULFATE-D5W PMX 1 GM in DEXTROSE/WATER 1 100ML.BAG IVPB ONE (03:40)
[2025-01-13 05:38] LABS: ABG HCO3 32 mmol/L (21-25); ABG PCO2 34 mmHg (35-45); ABG PO2 76 mmHg (83-108); ABG TCO2 33 mmol/L (19-24)
[2025-01-13 05:40] LABS: ABG PH 7.58 (7.35-7.45); Allen Test Performed? no
[2025-01-13 06:13] LABS: Glucose,Whole Blood 223 mg/dL (70-110)
[2025-01-13] MEDS ORDERED: HYDROmorphone 0.5 MG/0.5 ML SYRINGE IVP PRN (08:46)
[2025-01-13] MEDS ORDERED: LORazepam 1 MG/0.5 ML VIAL IV PRN (08:46)
[2025-01-13] MEDS ORDERED: MORPHINE SULFATE 2 MG/ML SYRINGE IVP PRN (08:46)
[2025-01-13] MEDS ORDERED: HYDROmorphone 1 MG/ML 1 ML SYRINGE IVP PRN (08:46)
[2025-01-13] MEDS: SCOPOLAMINE 1 MG/72 HR PATCH TRANSDERM SCH (09:49)
[2025-01-13] MEDS: ATROPINE OPHTH SOLN 1% 5ML BTL SUBLINGUAL PRN (09:49)
[2025-01-13 10:14] VITALS: BP 170/77; PULSE 84
[2025-01-13 10:16] VITALS: TEMP 97.7
[2025-01-13] MEDS: MORPHINE SULFATE 100 MG in SODIUM CHLORIDE 0.9% 90 ML IV SCH (10:23)
[2025-01-13] MEDS: MORPHINE SULFATE 4 MG/ML SYRINGE IVP PRN (10:28)
[2025-01-13] MEDS: LORazepam 1 MG/0.5 ML VIAL IV PRN (10:28)
--- NOTE | 2025-01-13 10:42 | P.PN ---
Subjective Progress Note Date: 01/13/25 Principal diagnosis: Acute hypoxic respiratory failure secondary to pneumococcal pneumonia involving left lower lobe 69-year-old female who looks much older than her stated age, who apparently comes into the emergency department, December 25, brought in by EMS, because apparently she was found down on the floor. She apparently was going to the bathroom, and fell, but did not hurt herself. She believes her defibrillator, went off, but she was not sure. She is not sure if she lost consciousness according to the [facility]. She apparently denied any chest pain, or difficulty breathing in the emergency department. Apparently, the patient was evaluated by cardiology, and, apparently there was an issue with the defibrillator. Anyway, the patient was all set to be discharged, but apparently last night, and then today, the patient developed some increasing shortness of breath, and, saturations are quite low, and the patient required more more oxygen, to the point where she was on Airvo. We were asked to see the patient because of her respiratory decline. Chest x-ray appears to show possible minimal infiltrate at the right lung base, she may have aspirated. She apparently has a history of throat cancer, undergoing both chemo and radiation therapy. The status of that is not known. In addition, according to the chart, she has a history of COPD, acid reflux disease, hypertension, rheumatoid arthritis, sleep apnea, hypothyroidism, among other things. She has had a heart catheterization, pacemaker, and AICD placement. We attempted to talk to the family about CODE STATUS. They were not sure of her CODE STATUS although in the chart, apparently she was not to be intubated. The was unsure. The daughter could not be reached. A blood gas was done, showing a PO2 of 39, PCO2 of 31, and a pH of 7.55. The patient was transferred to the intensive care unit. The blood gas was done on 100% oxygen. White count was 13.2, hemoglobin 15.7, hematocrit 43. 1, and platelet count 189,000. Sodium was 127, potassium 4.7, chlorides 90, CO2 23, anion gap 14, BUN 39, creatinine 0.91. Glucose was 143. N-terminal proBNP was 1580. TSH was quite high at 15.1. Home medications included levothyroxine, which the patient may or may not be taking. Chest x-ray from earlier, shows a possible minimal infiltrate, right lower lobe. Apparently the patient has been evaluated by speech pathology. Progress note dated December 30, 2024. 69-year-old female who looks much older than her stated age. We saw her yesterday in consultation. Patient developed respiratory failure, presumably secondary to aspiration. Patient is currently on the ventilator. She is on vol ume assist-control, rate 14, tidal volume 450, FiO2 80%, PEEP of 10. Blood gases on 100% show pO2 of 119, pCO2 of 45, pH of 7.35. Art line and central line were placed yesterday. She is on propofol at 40 mcg/kg/min, norepinephrine at 2.8 mcg/min, and saline at 10 cc an hour. She is getting vital high-protein at 10 cc an hour. She continues on azithromycin and Rocephin for aspiration pneumonia. White count of 15.3, hemoglobin 13.9, hematocrit 39.4, platelet count 161,000. Sodium 129, potassium 3.7, chloride 94, CO2 25, BUN 38, creatinine 0.98. Glucose is 186. Calcium 8.2. Chest x-ray shows a small right-sided pleural effusion, and some minimal infiltrate, at the right lung base. Progress note dated December 31, 2024. 69-year-old female seen today in room 262. She remains on volume assist- control, rate 14, tidal volume 450, FiO2 60%, PEEP of 10. Gases on 80% show pO2 of 137, PCO2 of 40, pH of 7.49. She is getting propofol at 40 mcg/kg/min, saline at 15 cc an hour, and vital high-protein at 10 cc, with a goal of 38. The patient is currently on azithromycin and Rocephin. Vancomycin is discontinued. Sputum was positive for Streptococcus pneumoniae. White count 13.6, hemoglobin 12.8, hematocrit 35.7, platelet count 137,000. Sodium 128, potassium 4, chloride 90, CO2 29, BUN 32, creatinine 0.76. Glucose 147. Calcium 8.1. Chest x-ray continues to show bibasilar infiltrates or atelectasis. On 01/01/2025, the patient is being seen for a follow-up. This morning, the p atient has been weaned off the sedation and the patient is arousable and the patient is making good eye contact and following simple commands and answering questions. The patient is on assist-control mode of mechanical ventilation at rate of 14, tidal volume of 450, FiO2 of 50% and a PEEP of 10. The blood gas showed a pH of 7.55 with a ESN026 and PO284. The chest x-ray from today shows COPD with some mild patchy atelectatic changes in the left lung base. Hemodynamically stable. White cell count of 13.9, hemothirteen 0.2 and a platelet count of 143. Sodium is at 130 with a potassium level of 3.8, bicarbonate 32, BUN 28 with a creatinine of 0.6. The patient had a sputum sample that was positive for Streptococcus pneumonia and the patient remains on IV Rocephin. The patient remains on bronchodilators and the patient is currently on DuoNeb nebulized treatments [id number]. A bedside cuff leak test was done and the patient has adequate air movement around the ET tube and the patient is currently intubated with a #7 orotracheal tube and this intubation was done due to concerns of her previous history of throat cancer. Tube feeds are currently on hold, possible extubation today based on her progress. On 01/02/2025, the patient is being seen for a follow-up. The patient has been weaned off the mechanical ventilator and the patient was extubated and the patient is currently on 2 L of oxygen by nasal cannula. The patient is having some difficulty in swallowing. The cough is weak. No significant respiratory distress. She failed a bedside swallow and the patient will have an official swallow evaluation. Meanwhile, the patient has been kept NPO. She remains on the lactated Ringer at rate of 75 cc an hour. She was also noted to have oropharyngeal candidiasis. She is awake and alert and communicating. The chest x-ray from this morning shows COPD with slightly worsening patchy retrocardiac atelectasis. The patient's WBC count is 11.2 with a hemoglobin of 11.7 and a platelet count of 102. BUN is 23 with a creatinine 0.6. Sodium level is 134 and a potassium level is at 3.5. The patient remains on IV Rocephin 2 g every 24 hours as the patient sputum sample was positive for strep pneumo. The patient remains on DuoNeb treatments [id number]. The patient is on Coreg 6.25 mg p.o. twice a day, Synthroid 88 mcg p.o. daily, and Lipitor 80 mg p.o. d aily. She is also on aspirin. There is generalized profound weakness in all 4 extremities. Nevertheless, the patient is able to move all 4 extremities and she is following simple commands. Coffee mechanism remains weak. 01/03/2025, the patient is being seen for a follow-up. The patient was pandya sferred out of the intensive care unit postextubation the patient is currently on 2 L of oxygen by nasal cannula. She continues to have some limited congested cough. No significant sputum production. No signs of any significant respiratory distress. She remains profoundly weak and debilitated. She is also having difficulty in swallowing and speech pathology has been involved in the care of the patient is going to undergo a modified barium swallow. The patient also had oropharyngeal candidiasis and the patient is currently taking IV Diflucan. She remains on IV Rocephin regarding a pneumococcal pneumonia with secondary COPD exacerbation. Most recent chest x-ray from 01/02/2025 shows COPD and patchy left lower lobe pulmonary infiltrates/atelectasis/consolidation. The white second 11.2 with a hemoglobin 12.1 and platelet count of 105. Sodium level is at 133, BUN 28 with a creatinine of 0.4. Bicarb is at 21. Glucose is 157. On 01/04/2025, the patient had a coughing COPD. Noted this patient is post ventilator dependent respiratory failure and a pneumococcal pneumonia. The noelle ent remains on IV Rocephin. Episode and following that the patient started having hypoxemia. The patient was brought up from 2 L up to 15 L of nasal cannula. Based on that, further workup was initiated. The patient was given a blood gas that showed acute respiratory alkalosis with a pH of 7.55 and a PCO2 of 29 and PO2 of 33. Subsequently, the patient was placed on 13 L and her current pulse ox is 93%. CT of the chest was also done and the patient had no evidence of any pulmonary embolism. The patient had no filling defects. There was bilateral lower lobe opacities/atelectasis. There is additional few peripheral right upper lobe and lingular groundglass opacities that are minimal and there is also mucous plugging and a trace right-sided pleural effusion. There is also background COPD. Noted the patient is post ventilator dependent respiratory failure and the patient was extubated on 01/02/2025. The patient continued to have dysphagia following her extubation patient is currently NPO. No reported aspiration per nursing staff. Her antibiotic coverage has been switched to IV Unasyn and Rocephin has been discontinued. Remains on bronchodilators. Remains on IV Solu-Medrol. The white cell count from yesterday was 11.2. No labs are available from today. Obviously, her labs need to be repeated. Family is at the bedside. She is arousable and awake although she is quite weak and she seems to be quite debilitated. On 01/05/2025, the patient is being seen for a follow-up. The patient was initially seen on the medical floor and the patient was on 100% of the bed face mask and oxygen nasal cannula at 15 L. Pulse ox was 91%. The patient was lethargic, confused, and sluggishly responsive to verbal or painful stimulation. Noted, the patient was quite hypoxic. Most recent blood gas from this morning showed a pH of 7.6 with a PCO2 of 26 and PO2 of 52 on 100% nonrebreather facemask and oxygen high flow at 15 L. A follow-up chest x-ray was also done that showed small right-sided pleural effusion/atelectasis. Patchy retrocardiac opacity was again present. CT of the chest was also completed yesterday the patient has no evidence of any pulmonary embolism. There is evidence of bilateral lower lobe consolidation and atelectasis and possibly some mucous plugging. Trace right-sided pleural effusion was also noted. The patient was started on IV Unasyn accordingly. Based on ongoing hypoxemia and diminished level of consciousness, the patient was transferred to the intensive care unit. The patient was started on BiPAP. While being on a BiPAP of 12/5 with an FiO2 of 100%, repeat blood gas was done and the patient demonstrated a pH of 7.57 with a pCO2 28 and PO2 of 57. The patient had some difficulty in tolerating the BiPAP and the patient will be started on Precedex to maintain secondary to the BiPAP machine. The patient was given a triple-lumen catheter in the intensive care unit and this was inserted in the right IJ without any complications. No evidence of any pneumothorax post line insertion. Hemodynamically, remained stable. No significant hypotension. The patient was started on lactated Ringer at rate of 75 cc an hour. Antibiotic coverage remains IV Unasyn and Diflucan. Remains on bronchodilators. Remains on IV Solu-Medrol. Currently off diuretics. Remains n.p.o. as the patient had difficulty swallowing post extubation. On 01/06/2025, the patient is being seen in the intensive care unit. Extremely lethargic, weak, difficult to arouse, remains on a BiPAP with borderline oxygenation. The patient has been kept on a BiPAP at a pressure of 10 over 5 cm of water and FiO2 of 80%. The blood gas showed some improvement in oxygenation and the morning blood gas showed a pH of 7.33 with a pCO2 of 31 and pO2 of 89. The patient continues to moan and c occasionally cries for help. She states that she is unable to breathe. The exact cause for her underlying hypoxemia is not clear. Suspect mucous plugs. Noted I reviewed the chest x-ray from this morning and the patient has no clear airspace disease or consolidation. There is some right lower lobe airspace opacity. Otherwise, no significant abnormalities to explain the patient's hypoxemia. The same time, his CT of the chest was done on 01/04/2025 showed bilateral lower lobe consolidation and atelectasis. There was also a few peripheral right upper lobe and lingular groundglass opacities. Findings were trivial and there was no evidence of any pulmonary embolism. A trace right-sided pleural effusion was noted. Based on her critical and borderline respiratory status, I decided to go ahead and intubate the patient. I performed intubation the Glydo scope. I examined the upper airway structures and the vocal cords seem to be quite patent and open and there was no significant supraglottic narrowing of concern. The patient was intubated by #8 orotracheal tube via the glide scope. Following that, I performed a bronchoscopy and the patient did have some purulent mucous plugs in the lower lobes bilaterally, right more than left and total amount of purulent respiratory secretions were suctioned out was in order 50 cc. Meanwhile, the patient was kept on a mechanical ventilator. Currently, the patient is in assist-control mode at rate of 40, tidal volume of 450, FiO2 100% with a PEEP of 5. Blood gas showed a pH of 7.6 with a PCO2 of 23 and PO2 of 128. Postintubation chest x-ray shows no acute cardiopulmonary process. ET tube with distal tip 3.5 cm above the azael. NG tube was also in good location. Morning blood work showed a WBC count of 11.5, hemoglobin 10.7 and platelet count of 100. Sodium is at 136, potassium is at 3.5, BUN 28 and creatinine 0.4. Blood sugar is at 149. The patient is currently on IV Unasyn as a broad-spectrum antibiotics as the patient had a pneumococcal pneumonia at time of admission. The patient remains on DuoNeb nebulizer treatments [id number], IV Solu- Medrol, 40 mg every 12 hours. Patient is also on Diflucan for oropharyngeal candidiasis. Remains on Coreg, Lipitor and aspirin. On 01/07/2025, the patient is being seen for a follow-up. The patient remains intubated on a mechanical ventilator. On today's evaluation, the patient is sedated on propofol which is running at 60 mcg/kg/min. The patient remains also on assist-control mode rate of 14, tidal volume of 400, FiO2 of 70% with a PEEP of 5. The blood gas showed a pH of 7.44 with a [id number] and PO2 of 75. Chest x- ray findings are essentially unchanged and the patient continues to have some left basilar consolidation. Earlier CAT scan of the chest also showed bibasilar atelectasis and consolidations. The patient had positive sputum sample for strep pneumo. However, a bronchoscopy with therapeutic airway suctioning and mucous plug removal was done yesterday and another bronchoalveolar lavage of the right lower lobe was done. Results are still pending for now. Antibiotic coverage remains unchanged and the patient remains on IV Unasyn. The patient remains on lactated Ringer at rate of 75 cc an hour. Cardiac rhythm is sinus bradycardia. Fluid balance is +3.3 L over the past 24 hours and the patient will be started on enteral feeding for nutritional support. The labs from today showed a WBC count of 13.4, hemoglobin of 10.3 and a platelet count of 111. Sodium is at 135, potassium is at 4.2, BUN is 23 with a creatinine of 0.39. Serum bicarb is at 23. No other significant events overnight on this patient. The Coreg will be placed on hold as the patient is having some bradycardia. Remains on aspirin. Remains on Lipitor. Remains on Diflucan for oropharyngeal candidiasis. Seen today on 01/08/2025, patient remains in the ICU, intubated and mechanically ventilated, on assist-control rate of 14 tidal volume 400 FiO2 50% and PEEP of 8 patient is still requiring pressors norepinephrine at 0.08 mcg/kg/min, she is also on LR 75 cc/h propofol 60 mcg/kg/min vital HP at 10 cc/h. Remains on antibiotics for her streptococcal pneumonia/Unasyn. Patient is also on Diflucan for oropharyngeal candidiasis. Apparently the patient was extubated on 01/01, reintubated on 01/06 CODE STATUS has been changed to DNR CODE STATUS, however the issue of comfort care was not discussed or at least the family is undecided regarding her overall condition. Patient is sedated, chest x-ray was reviewed and it showed cardiomegaly, mild pulmonary vascular congestion, and right lower lobe consolidation/pneumonia. Labs reviewed WBC count is 11.5 hemoglobin 10.1 electrolytes are normal, renal profile is normal blood sugar is 167. Seen today on 01/09/2025, remains in the ICU, intubated and mechanically ventilated, on assist-control rate of 14 tidal volume 400 FiO2 50% PEEP of 8 I cut it down to 5 ABG showed a pO2 of 92 pCO2 34 pH of 7.5. Chest x-ray showed minimal congestive changes with pulmonary vascular congestion and left basilar atelectasis, patient is off propofol this morning, she is arousable, but she t ends to fall asleep easily and noted to have episodes of apnea. Hence I transitioned her ventilatory settings to pressure support of 10 with IMV rate, backup rate of 8, and I plan to give the patient at least a weaning trial with pressure support low IMV backup rate because of her apnea, and continue with CPAP. This will be done today. And if the patient tolerates this mode for few hours, may check ABG and decide whether the patient could be extubated. Clinically this is probably our window to extubate the patient, patient is no code, may have to discuss with the family whether the patient could be reintubated if she fails extubation, but apparently the CODE STATUS has been established as no code. Labs were reviewed today, WBC count is 13.3 hemoglobin 10.1 platelets are 123. Basic metabolic profile is normal BUN is 18 creatinine 0.38 Seen today on 01/10/2025, patient remains in the ICU, intubated and mechanically ventilated, patient is on assist-control rate of 14 tidal volume 400 FiO2 50% PEEP of 5 ABG showed a pO2 of 105 pCO2 37 pH of 7.51. Patient remains on Unasyn for her pneumococcal pneumonia she is also on fluconazole propofol is presently on hold this morning. She is on vital HP at 33 cc/h and LR at 75 cc/h. Patient was placed on Lasix 20 mg IV push twice daily. Patient is arousable in spite of being on propofol, seems to be generally weak, follows simple instructions WBC count is 9.8 hemoglobin 9.3, basic metabolic profile is normal renal profile is normal creatinine is normal blood sugar is 157, magnesium 1.8 chest x-ray showed cardiomegaly small left pleural effusion and bibasilar atelectasis versus infiltrates. Patient was seen today on 01/11/2025, remains in the ICU intubated and mechanically ventilated, patient is off sedation, she is quite calm, arousable but lethargic. On assist-control rate of 14 tidal volume 400 FiO2 had to be increased last night to 70% today down to 60% I increased PEEP to 8. ABG this morning showed a pO2 of 88 pCO2 37 pH of 7.53 and this was on 70% FiO2. Patient is on vital HP at 33 cc/h IV fluid at 75 cc/h in the form of LR, not much has changed over the last 24 hours except patient developed some atelectasis and mucous plugging and had to be suctioned her O2 saturation dropped down, chest x- ray showed mostly bibasilar atelectasis left more so than right, WBC count is 11.9 hemoglobin 10.8 platelets 151. Basic metabolic profile is normal, renal profile is normal. Seen today on 01/12/2025, patient remains in the ICU, intubated and mechanically ventilated, patient is on assist-control rate of 14 tidal volume 400 FiO2 60% PEEP of 8 ABG showed a pO2 of 98 pCO2 40 pH of 7.51 hence FiO2 was cut down to 50% The PEEP at 8. Patient remains off propofol for the last 2 days, she is on LR at 75 cc/h receiving vital HP at 40 cc/h. Yesterday patient was tried on pressure support and CPAP for a short period of time, did not tolerate in spite of the backup rate with IMV, patient had to be placed back on AC mode. Chest x- ray this morning showed cardiomegaly, mild pulmonary vascular congestion, small pleural effusions, right basilar atelectasis, labs were reviewed WBC count is 10.7 hemoglobin 10.9 sodium is low at 131, potassium 3.6 bicarb is 31 chloride 95 BUN is 19 creatinine 0.31 patient remains quite sleepy, however she is arousable seems to be generally weak, follows simple instructions. Patient was seen today on 01/13/2025, remains in the ICU, intubated and mechanically ventilated, on assist-control rate of 10 tidal volume 400 FiO2 50% and PEEP of 8 ABG today showed a pO2 of 76 pCO2 34 pH of 7.58. Patient remains on Unasyn she is also on fluconazole, LR at 75 cc/h and she is receiving Lasix 20 mg IV push twice daily. Patient is not requiring any pressors, she is off propofol. She seems very calm, daughter is at bedside. WBC count is 14.3 hemoglobin 10.6. Electrolytes are normal renal profile is normal bicarb is 34. Patient had no chest x-ray today, but chest x-ray from yesterday showed cardiomegaly pulmonary vascular congestion and small bilateral pleural effusions. Objective - Vital Signs Vital signs: Vital Signs Temp 97.7 F 01/13/25 08:02 Pulse 84 01/13/25 08:02 Resp 12 01/13/25 08:02 BP 170/77 01/13/25 08:02 Pulse Ox 99 01/13/25 08:02 FiO2 50 01/13/25 08:02 Intake & Output 01/12/25 01/13/25 01/13/25 18:59 06:59 18:59 Intake Total 9035.264 0296.58 216 Output Total 1255 1350 135 Balance 57.031 187.58 81 Weight 87.8 kg Intake: IV 741 1056 176 0.9 130 120 20 Fluconazole in NaCl,Iso- 50 Osm 100 mg In Saline 1 50ml.bag @ 50 mls/hr IVPB DAILY [facility] Rx#:[id number] Lactated Ringers 1,000 ml 525 900 150 @ 75 mls/hr IV .[id number] [facility] Rx#:[id number] Pressure bag 36 36 6 Intake, IV Titration 1.031 1.58 Amount Norepinephrine 8 mg In 1.031 1.58 Sodium Chloride 0.9% 250 ml @ 0.03 MCG/KG/MIN 4. 122 mls/hr IV .Q24H [facility] Rx#:[id number] Tube Feeding 480 480 40 Other 90 0 Output: Urine 1255 1350 135 Other: Voiding Method Indwelling Catheter Indwelling Catheter Indwelling Catheter ABP, PAP, CO, CI - Last Documented Arterial Blood Pressure 136/58 - Exam Physical exam revealed a 69-year-old female in no distress intubated mechanically ventilated, off sedation, she is not on propofol Head: Atraumatic normocephalic HEENT: PERRLA EOMI, nonicteric no neck masses no JVD Chest crackles at the bases no rhonchi no wheezes Cardiac distant S1-S2, no S3 gallop, no murmur Abdomen soft nontender no megaly no rebound no guarding Extremities no clubbing edema or cyanosis Skin: No rashes Neurologic: Arousable, follows simple instructions generally weak. Psychiatric: Normal mood affect and no mental status examination - Labs CBC & Chem 7: 01/13/25 02:50 01/13/25 02:50 Labs: Abnormal Lab Results - Last 24 Hours (Table) 01/12/25 01/12/25 01/13/25 Range/Units 17:51 23:50 02:50 WBC (4.50-10.00) 10*3/uL RBC (4.10-5.20) 10*6/uL Hgb (12.0-15.0) g/dL Hct (37.2-46.3) % MCH (27.0-32.0) pg Immature Gran # (0.00-0.04) 10*3/uL Neutrophils # (1.80-7.70) 10*3/uL Lymphocytes # (0.90-5.00) 10*3/uL Eosinophils # (0.04-0.35) 10*3/uL ABG pH (7.35-7.45) ABG pCO2 (35-45) mmHg ABG pO2 (83-108) mmHg ABG HCO3 (21-25) mmol/L ABG Total CO2 (19-24) mmol/L ABG O2 Saturation (94-97) % Hemoglobin (11.4-16.0) gm/dL Sodium 130 L (137-145) mmol/L Chloride 95 L (98-107) mmol/L Carbon Dioxide 34 H (22-30) mmol/L BUN 25 H (7-17) mg/dL Creatinine 0.35 L (0.52-1.04) mg/dL Glucose 178 H (74-99) mg/dL POC Glucose (mg/dL) 177 H 220 H (70-110) mg/dL Calcium 7.7 L (8.4-10.2) mg/dL AST 46 H (14-36) U/L ALT 72 H (4-34) U/L Total Protein 4.3 L (6.3-8.2) g/dL Albumin 2.4 L (3.5-5.0) g/dL 01/13/25 01/13/25 01/13/25 Range/Units 02:50 05:12 06:12 WBC 14.39 H (4.50-10.00) 10*3/uL RBC 3.25 L (4.10-5.20) 10*6/uL Hgb 10.6 L (12.0-15.0) g/dL Hct 31.0 L (37.2-46.3) % MCH 32.6 H (27.0-32.0) pg Immature Gran # 0.83 H (0.00-0.04) 10*3/uL Neutrophils # 12.61 H (1.80-7.70) 10*3/uL Lymphocytes # 0.20 L (0.90-5.00) 10*3/uL Eosinophils # 0.00 L (0.04-0.35) 10*3/uL ABG pH 7.58 H* (7.35-7.45) ABG pCO2 34 L (35-45) mmHg ABG pO2 76 L (83-108) mmHg ABG HCO3 32 H (21-25) mmol/L ABG Total CO2 33 H (19-24) mmol/L ABG O2 Saturation 97.6 H (94-97) % Hemoglobin 11.0 L (11.4-16.0) gm/dL Sodium (137-145) mmol/L Chloride (98-107) mmol/L Carbon Dioxide (22-30) mmol/L BUN (7-17) mg/dL Creatinine (0.52-1.04) mg/dL Glucose (74-99) mg/dL POC Glucose (mg/dL) 223 H (70-110) mg/dL Calcium (8.4-10.2) mg/dL AST (14-36) U/L ALT (4-34) U/L Total Protein (6.3-8.2) g/dL Albumin (3.5-5.0) g/dL Assessment and Plan Assessment: Impression: Acute hypoxic respiratory failure secondary to pneumococcal pneumonia and severe cardiomyopathy with acute on chronic systolic congestive heart failure and underlying COPD. 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 Once the family is ready to proceed. Continue antibiotics Continue diuretics Continue Diflucan Keep patient off sedation, however if the patient goes on comfort care measures could use morphine sulfate infusion. Continue to daily assess mental status Continue statins Continue aspirin Continue GI DVT prophylaxis Continue nutritional support/enteral feeding Discussed her condition with daughter at bedside. Critical care time is 33 minutes Time with Patient: Greater than 30
--- NOTE | 2025-01-13 16:12 | P.PN ---
Subjective Progress Note Date: 01/13/25 69-year-old female who looks much older than her stated age, who apparently comes into the emergency department, December 25, brought in by EMS, because apparently she was found down on the floor. She apparently was going to the bathroom, and fell, but did not hurt herself. She believes her defibrillator, went off, but she was not sure. She is not sure if she lost consciousness according to the [facility]. She apparently denied any chest pain, or difficulty breathing in the emergency department. Apparently, the patient was evaluated by cardiology, and, apparently there was an issue with the defibrillator. Anyway, the patient was all set to be discharged, but apparently last night, and then today, the patient developed some increasing shortness of breath, and, saturations are quite low, and the patient required more more oxygen, to the point where she was on Airvo. We were asked to see the patient because of her respiratory decline. Chest x-ray appears to show possible minimal infiltrate at the right lung base, she may have aspirated. She apparently has a history of throat cancer, undergoing both chemo and radiation therapy. The status of that is not known. In addition, according to the chart, she has a history of COPD, acid reflux disease, hypertension, rheumatoid arthritis, sleep apnea, hypothyroidism, among other things. She has had a heart catheterization, pacemaker, and AICD placement. We attempted to talk to the family about CODE STATUS. They were not sure of her CODE STATUS although in the chart, apparently she was not to be intubated. The was unsure. The daughter could not be reached. A blood gas was done, showing a PO2 of 39, PCO2 of 31, and a pH of 7.5 5. The patient was transferred to the intensive care unit. The blood gas was done on 100% oxygen. White count was 13.2, hemoglobin 15.7, hematocrit 43.1, and platelet count 189,000. Sodium was 127, potassium 4.7, chlorides 90, CO2 23, anion gap 14, BUN 39, creatinine 0.91. Glucose was 143. N-terminal proBNP was 1580. TSH was quite high at 15.1. Home medications included levothyroxine, which the patient may or may not be taking. Chest x-ray from earlier, shows a possible minimal infiltrate, right lower lobe. Apparently the patient has been evaluated by speech pathology. 01/11. Dr. Chilel took over care from Dr. Emmanuel. Patient currently on mechanical ventilation, currently on IV Unasyn and Diflucan. Patient also getting IV Lasix 20 mg every 12. 01/12. Patient seen examined. Blood work done showed WBC 10.7, hemoglobin 8.9, patient count 149, sodium 39, potassium 3.6, BUN 19, creatinine 0.31. at the bedside, plan is for the patient to go comfort care once daughter arrives from out of state 01/13. Patient seen and examined. Patient has been transition to comfort care, currently extubated. Family at the bedside REVIEW OF SYSTEMS: Review of system cannot be obtained patient not respondING PHYSICAL EXAMINATION: GENERAL: The patient is lethargic HEENT: Pupils are round and equally reacting to light. EOMI. No scleral icterus. No conjunctival pallor. Normocephalic, atraumatic. No pharyngeal erythema. No thyromegaly. CARDIOVASCULAR: S1 and S2 present. No murmurs, rubs, or gallops. PULMONARY: Coarse breath sounds bilaterally no wheeze ABDOMEN: Soft, nontender, nondistended, normoactive bowel sounds. No palpable organomegaly. MUSCULOSKELETAL: No joint swelling or deformity. EXTREMITIES: No cyanosis, clubbing, or pedal edema. NEUROLOGICAL: Lethargic SKIN: No rashes. Assessment and plan Acute hypoxic respiratory failure secondary to pneumococcal pneumonia and severe cardiomyopathy with acute on chronic systolic congestive heart failure and underlying COPD. 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 Continue same treatment. Continue with symptomatic treatment. Resume home medication. Monitor labs and vitals. DVT and GI prophylaxis. Further recommendations as per clinical course of the patient Dictation was produced using [employer] dictation software. please excuse any grammatical, word or spelling errors. Objective - Vital Signs Vital signs: Vital Signs Temp 97.7 F 01/13/25 08:02 Pulse 84 01/13/25 08:02 Resp 12 01/13/25 08:02 BP 170/77 01/13/25 08:02 Pulse Ox 99 01/13/25 08:02 FiO2 50 01/13/25 08:02 Intake & Output 01/12/25 01/13/25 01/13/25 18:59 06:59 18:59 Intake Total 2774.624 0530.58 218.5 Output Total 1255 1350 135 Balance 57.031 187.58 83.5 Weight 87.8 kg Intake: IV 741 1056 176 0.9 130 120 20 Fluconazole in NaCl,Iso- 50 Osm 100 mg In Saline 1 50ml.bag @ 50 mls/hr IVPB DAILY [facility] Rx#:[id number] Lactated Ringers 1,000 ml 525 900 150 @ 75 mls/hr IV .[id number] [facility] Rx#:[id number] Pressure bag 36 36 6 Intake, IV Titration 1.031 1.58 2.5 Amount Morphine Sulfate 100 mg 2.5 In Sodium Chloride 0.9% 90 ml @ 2 MG/HR 2 mls/hr IV .Q24H [facility] Rx#: [id number] Norepinephrine 8 mg In 1.031 1.58 Sodium Chloride 0.9% 250 ml @ 0.03 MCG/KG/MIN 4. 122 mls/hr IV .Q24H [facility] Rx#:[id number] Tube Feeding 480 480 40 Other 90 0 Output: Urine 1255 1350 135 Other: Voiding Method Indwelling Catheter Indwelling Catheter Indwelling Catheter ABP, PAP, CO, CI - Last Documented Arterial Blood Pressure 136/58 - Labs CBC & Chem 7: 01/13/25 02:50 01/13/25 02:50 Labs: Abnormal Lab Results - Last 24 Hours (Table) 01/12/25 01/12/25 01/13/25 Range/Units 17:51 23:50 02:50 WBC (4.50-10.00) 10*3/uL RBC (4.10-5.20) 10*6/uL Hgb (12.0-15.0) g/dL Hct (37.2-46.3) % MCH (27.0-32.0) pg Immature Gran # (0.00-0.04) 10*3/uL Neutrophils # (1.80-7.70) 10*3/uL Lymphocytes # (0.90-5.00) 10*3/uL Eosinophils # (0.04-0.35) 10*3/uL ABG pH (7.35-7.45) ABG pCO2 (35-45) mmHg ABG pO2 (83-108) mmHg ABG HCO3 (21-25) mmol/L ABG Total CO2 (19-24) mmol/L ABG O2 Saturation (94-97) % Hemoglobin (11.4-16.0) gm/dL Sodium 130 L (137-145) mmol/L Chloride 95 L (98-107) mmol/L Carbon Dioxide 34 H (22-30) mmol/L BUN 25 H (7-17) mg/dL Creatinine 0.35 L (0.52-1.04) mg/dL Glucose 178 H (74-99) mg/dL POC Glucose (mg/dL) 177 H 220 H (70-110) mg/dL Calcium 7.7 L (8.4-10.2) mg/dL AST 46 H (14-36) U/L ALT 72 H (4-34) U/L Total Protein 4.3 L (6.3-8.2) g/dL Albumin 2.4 L (3.5-5.0) g/dL 01/13/25 01/13/25 01/13/25 Range/Units 02:50 05:12 06:12 WBC 14.39 H (4.50-10.00) 10*3/uL RBC 3.25 L (4.10-5.20) 10*6/uL Hgb 10.6 L (12.0-15.0) g/dL Hct 31.0 L (37.2-46.3) % MCH 32.6 H (27.0-32.0) pg Immature Gran # 0.83 H (0.00-0.04) 10*3/uL Neutrophils # 12.61 H (1.80-7.70) 10*3/uL Lymphocytes # 0.20 L (0.90-5.00) 10*3/uL Eosinophils # 0.00 L (0.04-0.35) 10*3/uL ABG pH 7.58 H* (7.35-7.45) ABG pCO2 34 L (35-45) mmHg ABG pO2 76 L (83-108) mmHg ABG HCO3 32 H (21-25) mmol/L ABG Total CO2 33 H (19-24) mmol/L ABG O2 Saturation 97.6 H (94-97) % Hemoglobin 11.0 L (11.4-16.0) gm/dL Sodium (137-145) mmol/L Chloride (98-107) mmol/L Carbon Dioxide (22-30) mmol/L BUN (7-17) mg/dL Creatinine (0.52-1.04) mg/dL Glucose (74-99) mg/dL POC Glucose (mg/dL) 223 H (70-110) mg/dL Calcium (8.4-10.2) mg/dL AST (14-36) U/L ALT (4-34) U/L Total Protein (6.3-8.2) g/dL Albumin (3.5-5.0) g/dL
[2025-01-14 06:19] VITALS: RESP 6
--- NOTE | 2025-01-14 16:44 | P.DS ---
Providers Date of admission: 12/25/24 14:37 Attending physician: Tani Emmanuel Consults: 12/25/24 14:31 Consult Physician Urgent Consulting Provider: [facility] Consult Reason/Comments: NSTEMI, defibrillator discharge Do you want consulting provider notified?: Yes 12/29/24 09:10 Consult Physician Routine Consulting Provider: Wiley Stubbs Consult Reason/Comments: PNA Do you want consulting provider notified?: Yes 12/29/24 19:44 Consult Physician Stat Consulting Provider: Laxmi Haider Consult Reason/Comments: antibiotics Do you want consulting provider notified?: Yes Primary care physician: Tani Emmanuel Hospital Course: Final Diagnosis Acute hypoxic respiratory failure secondary to pneumococcal pneumonia and severe cardiomyopathy with acute on chronic systolic congestive heart failure and underlying COPD. 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 Patient fell while walking to the bathroom. Patient felt her defibrillator had fired although unsure if she had lost consciousness or not. Was brought into the ER by EMS. Patient became short of breath and hypoxic requiring increased oxygen support ended up on airvo high flow cannula Patient was evaluated by cardiology and pulmonology. Concern she may have aspirated. Patient was moved to the ICU and placed on the mechanical ventilator. Patient was started on IV lasix also receiving IV antibiotics. Because of her slow improvement patients family had decided on comfort care. Please see medication reconciliation for a list of current medications. Thank you for allowing us to participate in the care of this patient. The impression and plan of care has been dictated by Charleen Chapman, Nurse Practitioner as directed. Dr. Gianna MD I have performed a history and physical examination and medical decision making of this patient, discussed the same with the dictator, and agree with the dictators assessment and plan as written, documented as a scribe. Based on total visit time, I have performed more than 50% of this visit. Plan - Discharge Summary Discharge Rx Participant: No New Discharge Prescriptions: New Aspirin 325 mg PO DAILY #100 tab Continue Albuterol Inhaler [Ventolin Hfa Inhaler] 2 puff INHALATION RT-QID PRN PRN Reason: Shortness Of Breath PARoxetine [Paxil] 20 mg PO DAILY Fluticasone/Umeclidin/Vilanter [Trelegy Ellipta 100-62.5-25] 1 puff INHALATION RT-DAILY amLODIPine [Norvasc] 2.5 mg PO DAILY Famotidine 20 mg PO DAILY carvediloL [Coreg] 6.25 mg PO BID Atorvastatin [Lipitor] 80 mg PO DAILY Dapagliflozin Propanediol [Farxiga] 5 mg PO DAILY tab Nitroglycerin Sl Tabs [Nitrostat] 0.4 mg SUBLINGUAL Q5M PRN tab PRN Reason: Chest Pain Levothyroxine Sodium [Synthroid] 88 mcg PO DAILY Furosemide [Lasix] 40 mg PO BID #60 tab Potassium Chloride ER [K-Dur 20] 20 meq PO TID #30 tab Discontinued ALPRAZolam [Xanax] 2 mg PO TID PRN PRN Reason: Anxiety HYDROcodone/APAP 5-325MG [[place] 5-325] 1 tab PO Q4HR PRN PRN Reason: Pain No Action ALPRAZolam [Xanax] 2 mg PO TID PRN PRN Reason: Anxiety Fluticasone/Umeclidin/Vilanter [Trelegy Ellipta 100-62.5-25] 1 inhalation INHALATION Discharge Medication List Albuterol Inhaler [Ventolin Hfa Inhaler] 2 puff INHALATION RT-QID PRN 02/10/18 [History] PARoxetine [Paxil] 20 mg PO DAILY 09/30/23 [History] Fluticasone/Umeclidin/Vilanter [Trelegy Ellipta 100-62.5-25] 1 puff INHALATION RT-DAILY 03/23/24 [History] Famotidine 20 mg PO DAILY 05/16/24 [History] amLODIPine [Norvasc] 2.5 mg PO DAILY 05/16/24 [History] Atorvastatin [Lipitor] 80 mg PO DAILY 10/09/24 [History] Levothyroxine Sodium [Synthroid] 88 mcg PO DAILY 10/09/24 [History] carvediloL [Coreg] 6.25 mg PO BID 10/09/24 [History] Furosemide [Lasix] 40 mg PO BID #60 tab 12/02/24 [Rx] Dapagliflozin Propanediol [Farxiga] 5 mg PO DAILY tab 12/20/24 [Rx] Nitroglycerin Sl Tabs [Nitrostat] 0.4 mg SUBLINGUAL Q5M PRN tab 12/20/24 [Rx] Potassium Chloride ER [K-Dur 20] 20 meq PO TID #30 tab 12/20/24 [Rx] Aspirin 325 mg PO DAILY #100 tab 12/28/24 [Rx] ALPRAZolam [Xanax] 2 mg PO TID PRN 01/01/25 [History] Fluticasone/Umeclidin/Vilanter [Trelegy Ellipta 100-62.5-25] 1 inhalation INHALATION 01/01/25 [History] Discharge Disposition: - Preliminary Cause of Preliminary Cause of : respiratory failure from CHF, penumonia, cardiomyopathy
--- NOTE | 2025-01-17 21:28 | CDI ---
Documentation Clarification Form Date: 01/17/2025 09:06:13 PM From: Aminta Mccarty Phone: Admit Date: 12/25/2024 02:37:00 PM Patient Name: Haylie Yu Visit Number: [id number] Discharge Date: 01/14/2025 02:50:00 PM ATTENTION: The Clinical Documentation Specialists (CDI) and [facility] Coding Staff appreciate your assistance in clarifying documentation. Please respond to the clarification below the line at the bottom and electronically sign. The CDI & [facility] Coding staff will review the response and follow-up if needed. Please note: Queries are made part of the Legal Health Record. If you have any questions, please contact the author of this message via ITS. Doctor/Provider: Gallo Nieves Conflicting documentation has been found in the medical record. Acute myocardial [facility]/ CDI query Elevated troponin, flat patternnot indicative ofacute coronary syndrome Cardiology Progress Notes based on Cardiologys final assessment , please provide clarification. History/Risk Factors: 69yo F, AHRF, pneumococcal PNA, CM, ACSHF, COPD, AICD, Hx throat & vocal cords sp chemo/rad, chronicdysphagia, oropharyngealcandidiasis, GERD, RA, HTN, LUPE, LELIA, depression; former smoker, MORTALITY Clinical Indicators: Resume patient's home cardiac medications. Discontinue Nitro paste. Obtaininterrogation of ICD. Noneed to repeatechoas this was performed on 12/18. 12/25EKG: EVPM,AbnormalRhythm ECG 12/26EKG: EVPM, Marked STElevationconsider lateral injury. Marked STDepression, Consider SubenocardialInjuryAcuteMI Troponin 12/25: 0.145; 0.0140 Cardiology Note 12/27:Device interrogationApril revealed 92% LB pacing andnounderlyingarrhythmias. 12/27, Yesterday, NTPwas discontinued. Interrogationreviewed. Patient was contacted by [facility] regarding leadimpairment. Treatment: 12/25 Nitro Bid Ointment Topical Q6H, 12/25 Potassium Chl IVPB x1; 12/25 K dur 20 meq TID, 12/25 Aspirin PO X2 Please clarify which diagnosis is most appropriate: [ ]Acute myocardial infarction [ ]Acute myocardial infarctionruled out [ ] Other (please specify) [ ] Unable to determine (Template Last Revised: September 2020) ___This is a silly and wasteful query .Read our note Nothing else to add if we are laready telling you patient did not have ACS she did not!! MTDD
== END 2025-01-14 14:50 | disposition expired | DRG 981 ==
LOC: EC 10:54 → 3SCARD 14:37 → 2SICU 12-29 13:49 → 3SCARD 01-03 03:24 → 2SICU 01-05 13:13 → 5NMEDONC 01-13 14:30
PROVIDERS: ADMIT Family Medicine; ATTEND Family Medicine
PROC: 4A133B1 Monitoring of Arterial Pressure, Peripheral, Percutaneous Approach (ICD-10-PCS; 2024-12-25)
PROC: 4A133J1 Monitoring of Arterial Pulse, Peripheral, Percutaneous Approach (ICD-10-PCS; 2024-12-25)
PROC: 02HV33Z Insertion of Infusion Device into Superior Vena Cava, Percutaneous Approach (ICD-10-PCS; 2024-12-25)
PROC: 3E043XZ Introduction of Vasopressor into Central Vein, Percutaneous Approach (ICD-10-PCS; 2024-12-25)
PROC: 4B02XTZ Measurement of Cardiac Defibrillator, External Approach (ICD-10-PCS; 2024-12-26)
PROC: 5A09357 Assistance with Respiratory Ventilation, Less than 24 Consecutive Hours, Continuous Positive Airway Pressure (ICD-10-PCS; 2025-01-05)
PROC: 0WCQ8ZZ Extirpation of Matter from Respiratory Tract, Via Natural or Artificial Opening Endoscopic (ICD-10-PCS; principal; 2025-01-06)
PROC: 0B9F8ZX Drainage of Right Lower Lung Lobe, Via Natural or Artificial Opening Endoscopic, Diagnostic (ICD-10-PCS; 2025-01-06)
PROC: 5A1955Z Respiratory Ventilation, Greater than 96 Consecutive Hours (ICD-10-PCS; 2025-01-06)
PROC: 0BH18EZ Insertion of Endotracheal Airway into Trachea, Via Natural or Artificial Opening Endoscopic (ICD-10-PCS; 2025-01-06)
DX: T82.110A Breakdown (mechanical) of cardiac electrode, initial encounter (principal); A40.3 Sepsis due to Streptococcus pneumoniae; J69.0 Pneumonitis due to inhalation of food and vomit; I50.23 Acute on chronic systolic (congestive) heart failure; J96.01 Acute respiratory failure with hypoxia; J13 Pneumonia due to Streptococcus pneumoniae; B37.89 Other sites of candidiasis; Z51.5 Encounter for palliative care; C32.9 Malignant neoplasm of larynx, unspecified; J44.0 Chronic obstructive pulmonary disease with (acute) lower respiratory infection; I11.0 Hypertensive heart disease with heart failure; M06.9 Rheumatoid arthritis, unspecified; F32.A Depression, unspecified; E03.9 Hypothyroidism, unspecified; D63.0 Anemia in neoplastic disease; J44.1 Chronic obstructive pulmonary disease with (acute) exacerbation; I42.8 Other cardiomyopathies; B37.0 Candidal stomatitis; E87.3 Alkalosis; E87.1 Hypo-osmolality and hyponatremia; E87.6 Hypokalemia; Z66 Do not resuscitate; R13.10 Dysphagia, unspecified; Z99.81 Dependence on supplemental oxygen; E78.5 Hyperlipidemia, unspecified; I25.10 Atherosclerotic heart disease of native coronary artery without angina pectoris; R53.81 Other malaise; G47.33 Obstructive sleep apnea (adult) (pediatric); K21.9 Gastro-esophageal reflux disease without esophagitis; J98.4 Other disorders of lung; R00.1 Bradycardia, unspecified; F41.1 Generalized anxiety disorder; W18.30XA Fall on same level, unspecified, initial encounter; Y93.01 Activity, walking, marching and hiking; Z87.891 Personal history of nicotine dependence; Z92.21 Personal history of antineoplastic chemotherapy; Z92.3 Personal history of irradiation; Z95.810 Presence of automatic (implantable) cardiac defibrillator; Z98.61 Coronary angioplasty status; Z79.82 Long term (current) use of aspirin; Z79.84 Long term (current) use of oral hypoglycemic drugs; Z79.890 Hormone replacement therapy; Z79.899 Other long term (current) drug therapy; Z79.51 Long term (current) use of inhaled steroids; I49.9 Cardiac arrhythmia, unspecified
CPT/HCPCS: 36410; 36415; 36600; 70450; 70490; 71045; 71046; 71250; 71275; 76937; 80048; 80053; 80061; 82024; 82533; 82565; 82805; 83036; 83605; 83735; 83880; 84100; 84132; 84133; 84145; 84439; 84443; 84484; 85025; 85027; 85379; 85610; 85730; 87040; 87070; 87075; 87077; 87186; 87205; 93005; 94002; 94003; 94640; 94660; 94760; 96361; 96365; 96366; 99291